=== PATIENT | male | born 1940 | race Caucasian/White ===

== ENCOUNTER 2023-10-29 09:14 | Outpatient (REF) | payer MEDICARE, SELFPAY | END 2023-10-29 09:15 | disposition home or self-care (01) | LOC: HO.HOSX 09:14 | PROVIDERS: Visit Provider Orthopaedic Surgery | DX: Z13.89 Encounter for screening for other disorder (principal) ==

== ENCOUNTER 2023-11-04 09:55 | Outpatient (AMB) | payer MEDICARE, SELFPAY ==
--- NOTE | 2023-11-04 10:17 | MHC.OFFVIS ---
Vital Signs 11/04/23 10:20 Height 5 ft 5 in Weight 170 lb BMI 28.3 Intake Visit Reasons: N/P RT knee pain Intake Note: Cy is an 83 year old male who present today as a new patient with complaints of right knee pain. He describes his pain as sharp in nature. He has had cortisone injections in the past which gave him minimal relief. Has also had a series of 3 viscosupplementation injections which gave him fairly good relief. Did have a single viscosupplementation injection which gave him no relief. He has tried Tylenol and anti-inflammatory medicines which gave him minimal relief. He wishes to hold off on right total knee replacement surgery for as long as possible. He has done physical therapy exercises which aggravated his pain. Allergies lactose [LACTOSE] Allergy (Unknown, Unverified 11/04/23 10:18) UNKNOWN morphine [MORPHINE] Allergy (Unknown, Unverified 11/04/23 10:18) INVOLUNTARY SPASMS From DILAUDID Allergy (Unknown, Uncoded 11/04/23 10:18) PAIN Medication List - Last Reconciled 11/04/23 by Gordo Deng MD atorvastatin 40 mg PO DAILY carvedilol 6.25 mg PO BID finasteride 5 mg PO DAILY levothyroxine 75 mcg PO DAILY omeprazole 20 mg PO BID prednisone 1 mg PO DAILY sacubitril-valsartan 49-51 mg (Entresto) 1 tab PO BID tamsulosin 0.4 mg PO DAILY Physical Exam Vital Signs: BMI result Body Mass Index 28.3 Const Other: Well-nourished well-developed very friendly male awake alert and oriented x3 in no acute distress Extrem Other: Bilateral lower extremity examination shows good capillary refill, no skin lesions noted, normal sensation light touch Right knee examination shows a mild effusion, palpable crepitus with range of motion, pain with range of motion, range of motion from -3 degrees to 115 degrees, no instability Results Reviewed Results Reviewed: X-rays of the patient's right knee taken today show joint space narrowing, subchondral sclerosis, no acute bony abnormalities Assessment & Plan Assessment & Plan (1) Arthritis of right knee: Code(s): M17.11 - Unilateral primary osteoarthritis, right knee Category: Medical Plan Mr. Velez presents with progressively worsening right knee pain due to degenerative joint disease. I had a lengthy discussion with the patient regarding the treatment options. He wishes to hold off on right total knee replacement surgery for as long as possible. I agree with this plan. Has not gotten good relief from single viscosupplementation injections or cortisone injections. Thus, I will see whether or not the patient's insurance company will cover a series of 3 viscosupplementation injections for his right knee. I will see him back once the injections are available. Feel free to call me at any time should questions regarding his orthopedic management arise. I spent 21 minutes in reviewing the patient's records and imaging studies, seeing the patient and documenting in the medical record. Orders: Orders XR knee RT 3V Today M25.561 - Pain in right knee Coding Level of Care Code Est Pt Level 3 (67093) Diagnoses Arthritis of right knee M17.11
[2023-11-04 10:20] VITALS: BMI 28.3
== END 2023-11-04 10:35 | disposition home or self-care (01) ==
PROVIDERS: Visit Provider Orthopaedic Surgery
DX: M17.11 Unilateral primary osteoarthritis, right knee (principal)
CPT/HCPCS: 99203

== ENCOUNTER 2023-11-04 10:51 | Outpatient (REF) | payer MEDICARE, SELFPAY ==
--- NOTE | ~2023-11-04 | XR_ITS ---
EXAMINATION: XR KNEE, RIGHT CLINICAL INFORMATION: Pain in right knee COMPARISON: None available. TECHNIQUE: Three views of the right knee. FINDINGS: The bones are diffusely demineralized. Trace joint effusion. Moderate to marked narrowing of the medial compartment with subchondral sclerosis. Small medial marginal posterior patellar osteophytes. Narrowing of the patellofemoral space. Electronic device partially imaged in the lateral aspect of the mid to distal thigh. XR/XR knee RT 3V IMPRESSION: Moderate degenerative changes.
== END 2023-11-04 10:52 | disposition home or self-care (01) ==
LOC: HO.HOSX 10:51
PROVIDERS: Visit Provider Orthopaedic Surgery
DX: M17.11 Unilateral primary osteoarthritis, right knee (principal)
CPT/HCPCS: 73562; 99202

== ENCOUNTER 2023-11-25 07:49 | Outpatient (AMB) | payer MEDICARE, SELFPAY ==
--- NOTE | 2023-11-25 07:54 | MHC.OFFVIS ---
Intake Visit Reasons: Right Knee Euflexxa #1 Intake Note: Cy is an 83 year old male who presents with complaints of right knee pain. He describes his pain as sharp in nature. He has had cortisone injections in the past which gave him minimal relief. Has also had a series of 3 viscosupplementation injections which gave him fairly good relief. He did have a single viscosupplementation injection which gave him no relief. He has tried Tylenol and anti-inflammatory medicines which gave him minimal relief. He wishes to hold off on right total knee replacement surgery for as long as possible. He has done physical therapy exercises which aggravated his pain. Allergies lactose [LACTOSE] Allergy (Unknown, Unverified 11/25/23 07:55) UNKNOWN morphine [MORPHINE] Allergy (Unknown, Unverified 11/25/23 07:55) INVOLUNTARY SPASMS From DILAUDID Allergy (Unknown, Uncoded 11/25/23 07:55) PAIN Medication List - Last Reconciled 11/25/23 by Gordo Deng MD atorvastatin 40 mg PO DAILY carvedilol 6.25 mg PO BID finasteride 5 mg PO DAILY levothyroxine 75 mcg PO DAILY omeprazole 20 mg PO BID prednisone 1 mg PO DAILY sacubitril-valsartan 49-51 mg (Entresto) 1 tab PO BID tamsulosin 0.4 mg PO DAILY Physical Exam Const Other: Well-nourished well-developed very friendly male awake alert and oriented x3 in no acute distress Extrem Other: Bilateral lower extremity examination shows good capillary refill, no skin lesions noted, normal sensation light touch Right knee examination shows a minimal effusion, palpable crepitus with range of motion, pain with range of motion, no instability Office Procedures Joint Injection/Drain Joint Injection/Drain Primary Site: right knee Prep: site was prepped using aseptic technique Injected: 20 mg of (Euflexxa viscosupplementation) and 1% plain lidocaine Procedure: The patient tolerated the procedure well Coding 39339 - Large joint Procedure code (CPT) selection complete Results Reviewed Results Reviewed: X-rays of the patient's right knee show joint space narrowing, subchondral sclerosis, no acute bony abnormalities Assessment & Plan Assessment & Plan (1) Arthritis of right knee: Code(s): M17.11 - Unilateral primary osteoarthritis, right knee Category: Medical Plan Mr. Velez presents with right knee pain due to degenerative joint disease. I had a lengthy discussion with the patient regarding the treatment options. He wishes to hold off on total knee replacement surgery for as long as possible. I agree with this plan. Has not gotten good relief from cortisone injections in the past. Thus, the risks and benefits of a series of 3 Euflexxa viscosupplementation injections were discussed at length with the patient. The patient wished to proceed. He tolerated the 1st injection well. He will continue with his activity modifications. He will follow up next week as scheduled. I spent 20 minutes in reviewing the patient's records and imaging studies, seeing the patient and documenting in the medical record. Orders: Orders AMB Joint Injection/Aspiration Today M17.11 - Unilateral primary osteoarthritis, right knee Coding Level of Care Code Est Pt Level 3 (06728) Diagnoses Arthritis of right knee M17.11 CPT Codes Coding - 02259 Large joint: 37282 - Large joint ([id number])
== END 2023-11-25 08:15 | disposition home or self-care (01) ==
PROVIDERS: Visit Provider Orthopaedic Surgery
DX: M17.11 Unilateral primary osteoarthritis, right knee (principal)
CPT/HCPCS: 20610; 99213

== ENCOUNTER → 2023-11-25 07:49 | Outpatient (BNVA) | payer MEDICARE, SELFPAY | PROVIDERS: Visit Provider Orthopaedic Surgery | DX: M17.11 Unilateral primary osteoarthritis, right knee (principal) | CPT/HCPCS: 20610; 99212; J7323 ==

== ENCOUNTER 2023-12-02 07:50 | Outpatient (AMB) | payer MEDICARE, SELFPAY ==
--- NOTE | 2023-12-02 09:28 | MHC.OFFVIS ---
Intake Visit Reasons: Right Knee Euflexxa #2 Intake Note: Mr. Velez presents for follow-up of his right knee pain. He states he got mild relief from the 1st Euflexxa injection that he was given last week. He continues with his home exercise program. Allergies lactose [LACTOSE] Allergy (Unknown, Unverified 11/25/23 07:55) UNKNOWN morphine [MORPHINE] Allergy (Unknown, Unverified 11/25/23 07:55) INVOLUNTARY SPASMS From DILAUDID Allergy (Unknown, Uncoded 11/25/23 07:55) PAIN Medication List - Last Reconciled 12/02/23 by Gordo Deng MD atorvastatin 40 mg PO DAILY carvedilol 6.25 mg PO BID finasteride 5 mg PO DAILY levothyroxine 75 mcg PO DAILY omeprazole 20 mg PO BID prednisone 1 mg PO DAILY sacubitril-valsartan 49-51 mg (Entresto) 1 tab PO BID tamsulosin 0.4 mg PO DAILY Physical Exam Extrem Other: Right knee examination shows a minimal effusion, palpable crepitus with range of motion, pain with range of motion, no instability Office Procedures Joint Injection/Drain Joint Injection/Drain Primary Site: right knee Prep: site was prepped using aseptic technique Injected: 20 mg of (Euflexxa viscosupplementation) and 1% plain lidocaine Procedure: The patient tolerated the procedure well Coding - Large joint Procedure code (CPT) selection complete Assessment & Plan Assessment & Plan (1) Arthritis of right knee: Code(s): M17.11 - Unilateral primary osteoarthritis, right knee Category: Medical Plan Mr. Velez presents with right knee pain due to degenerative disease. The risks and benefits of a 2nd Euflexxa viscosupplementation injection were discussed at length with the patient. The patient wished to proceed. Tolerated the injection well. He will continue with his home exercise program. He will follow up next week as scheduled for his 3rd injection. He will contact me prior to that time should any questions or concerns arise. Orders: Orders AMB Joint Injection/Aspiration Today M17.11 - Unilateral primary osteoarthritis, right knee Coding Level of Care Code Procedure Only Diagnoses Arthritis of right knee M17.11 CPT Codes Coding - Large joint: 81882 - Large joint ([id number])
== END 2023-12-02 08:18 | disposition home or self-care (01) ==
PROVIDERS: Visit Provider Orthopaedic Surgery
DX: M17.11 Unilateral primary osteoarthritis, right knee (principal)
CPT/HCPCS: 20610

== ENCOUNTER → 2023-12-02 07:50 | Outpatient (BNVA) | payer MEDICARE, SELFPAY | PROVIDERS: Visit Provider Orthopaedic Surgery | DX: M17.11 Unilateral primary osteoarthritis, right knee (principal) | CPT/HCPCS: 20610; J7323 ==

== ENCOUNTER 2023-12-09 07:49 | Outpatient (AMB) | payer MEDICARE, SELFPAY ==
--- NOTE | 2023-12-09 07:58 | MHC.OFFVIS ---
Intake Visit Reasons: Right Knee Euflexxa #3 Intake Note: Cy is an 83 year old male who presents today for his Right Knee Euflexxa Injection #3. The patient reports mild improvement after his last 2 shots. He denies any fevers or chills. He continues with his home exercise program. Allergies lactose [LACTOSE] Allergy (Unknown, Unverified 12/09/23 08:02) UNKNOWN morphine [MORPHINE] Allergy (Unknown, Unverified 12/09/23 08:02) INVOLUNTARY SPASMS From DILAUDID Allergy (Unknown, Uncoded 12/09/23 08:02) PAIN Medication List - Last Reconciled 12/10/23 by Gordo Deng MD atorvastatin 40 mg PO DAILY carvedilol 6.25 mg PO BID finasteride 5 mg PO DAILY levothyroxine 75 mcg PO DAILY omeprazole 20 mg PO BID prednisone 1 mg PO DAILY sacubitril-valsartan 49-51 mg (Entresto) 1 tab PO BID tamsulosin 0.4 mg PO DAILY Physical Exam Extrem Other: Right knee examination shows a minimal effusion, palpable crepitus with range of motion, no instability Office Procedures Joint Injection/Drain Joint Injection/Drain Primary Site: right knee Prep: site was prepped using aseptic technique Injected: 20 mg of (Euflexxa viscosupplementation) and 1% plain lidocaine Procedure: The patient tolerated the procedure well Coding 08481 - Large joint Procedure code (CPT) selection complete Assessment & Plan Assessment & Plan (1) Arthritis of right knee: Code(s): M17.11 - Unilateral primary osteoarthritis, right knee Category: Medical Plan Mr. Velez presents with right knee pain due to degenerative joint disease. The risks and benefits of a 3rd Euflexxa injection were discussed at length with the patient. The patient wished to proceed. He tolerated the injection well. He will continue with his home exercise program. He will follow up with me on an as-needed basis should his symptoms not plateau at an unacceptable level over the next few months. Feel free to call me at any time should questions regarding his orthopedic management arise. Orders: Orders AMB Joint Injection/Aspiration 12/09/23 M17.11 - Unilateral primary osteoarthritis, right knee Coding Level of Care Code Procedure Only Diagnoses Arthritis of right knee M17.11 CPT Codes Coding - 65973 Large joint: 94772 - Large joint ([id number])
== END 2023-12-09 08:16 | disposition home or self-care (01) ==
PROVIDERS: Visit Provider Orthopaedic Surgery
DX: M17.11 Unilateral primary osteoarthritis, right knee (principal)
CPT/HCPCS: 20610

== ENCOUNTER → 2023-12-09 07:49 | Outpatient (BNVA) | payer MEDICARE, SELFPAY | PROVIDERS: Visit Provider Orthopaedic Surgery | DX: M17.11 Unilateral primary osteoarthritis, right knee (principal) | CPT/HCPCS: 20610; J7323 ==

== ENCOUNTER 2024-03-09 10:50 | Outpatient (AMB) | payer MEDICARE, SELFPAY ==
--- NOTE | 2024-03-09 10:52 | A.OFFVIS_ITS ---
Vital Signs 03/09/24 10:58 Height 5 ft 5 in Weight 170 lb BMI 28.3 Intake Visit Reasons: Right knee pain Intake Note: Cy is a 83 year old male who presents with complaints of progressively worsening right knee pain. He describes his pain as sharp and severe in nature, 02/25. His pain has gotten worse over the last few years in spite of continued non operative treatments. He has tried Tylenol and anti-inflammatory medicines which gave him minimal relief. He has also done physical therapy exercises which aggravated his pain. He has had both cortisone injections and viscosupplementation injections. The most recent set of injections gave him minimal relief. The patient has difficulty walking even short distances because of his pain. At this point his right knee pain is interfering with his activities of daily living and his ability to sleep well through the night. Allergies lactose [LACTOSE] Allergy (Unknown, Verified 03/09/24 10:54) UNKNOWN morphine [MORPHINE] Allergy (Unknown, Verified 03/09/24 10:54) INVOLUNTARY SPASMS From DILAUDID Allergy (Unknown, Uncoded 12/09/23 08:02) PAIN Medication List - Last Reconciled 03/09/24 by Gordo Deng MD atorvastatin 40 mg PO DAILY carvedilol 6.25 mg PO BID finasteride 5 mg PO DAILY levothyroxine 75 mcg PO DAILY omeprazole 20 mg PO BID prednisone 1 mg PO DAILY sacubitril-valsartan 49-51 mg (Entresto) 1 tab PO BID tamsulosin 0.4 mg PO DAILY Physical Exam Vital Signs: BMI result Body Mass Index 28.3 Const Other: Well-nourished well-developed very friendly male awake alert and oriented x3 in no acute distress Extrem Other: Bilateral lower extremity examination shows good capillary refill, no skin lesions noted, normal sensation light touch Right knee examination shows a minimal effusion, palpable crepitus with range of motion, pain with range of motion, range of motion from -3 degrees to 115 degrees, no instability Results Reviewed Results Reviewed: X-rays of the patient's right knee taken previously show end-stage degenerative joint disease with grade 4 [id number] arthritis, subchondral sclerosis, osteophyte formation, no acute bony abnormalities Assessment & Plan Assessment & Plan (1) Right knee pain: Code(s): M25.561 - Pain in right knee Category: Medical Plan Mr. Velez presents with progressively worsening right knee pain due to end- stage degenerative joint disease. I had a lengthy discussion with the patient regarding the treatment options. At this point he has failed continued non operative treatments. The risks and benefits of right total knee replacement surgery were discussed at length with the patient. The patient wishes to proceed with surgery either later this year or early next year. The patient will contact my office to pick a surgery date. He will follow-up as instructed. Feel free to call me at any time should questions regarding his orthopedic management arise. I spent 20 minutes in reviewing the patient's records and imaging studies, seeing the patient and documenting in the medical record. Coding Level of Care Code Est Pt Level 3 (29936) Complex EM visit Add On G2211 Diagnoses Right knee pain M25.561
[2024-03-09 10:58] VITALS: BMI 28.3
== END 2024-03-09 11:19 | disposition home or self-care (01) ==
PROVIDERS: Visit Provider Orthopaedic Surgery
DX: M25.561 Pain in right knee (principal)
CPT/HCPCS: 99213; G2211

== ENCOUNTER → 2024-03-09 10:50 | Outpatient (BNVA) | payer MEDICARE, SELFPAY | PROVIDERS: Visit Provider Orthopaedic Surgery | DX: M25.561 Pain in right knee (principal) | CPT/HCPCS: 99212 ==

== ENCOUNTER → 2024-05-20 11:02 | Outpatient (BNVA) | payer MEDICARE, SELFPAY | DX: Z01.818 Encounter for other preprocedural examination (principal) ==

== ENCOUNTER → 2024-06-24 08:51 | Outpatient (AMB) | payer MEDICARE, SELFPAY ==
--- NOTE | 2024-06-24 09:04 | A.OFFVIS_ITS ---
Vital Signs 06/24/24 09:13 Height 5 ft 5 in Weight 170 lb BMI 28.3 Intake Visit Reasons: Right knee pain Intake Note: Cy is a 84 year old male who presents with complaints of progressively worsening right knee pain. He describes his pain as sharp and severe in nature, /10. His pain has gotten worse over the last few years in spite of continued non operative treatments. He has tried Tylenol and anti-inflammatory medicines which gave him minimal relief. He has also done physical therapy exercises which aggravated his pain. He has had both cortisone injections and viscosupplementation injections. The most recent set of injections gave him minimal relief. The patient has difficulty walking even short distances because of his pain. At this point his right knee pain is interfering with his activities of daily living and his ability to sleep well through the night. Allergies lactose [LACTOSE] Allergy (Unknown, Verified 06/24/24 09:13) UNKNOWN morphine [MORPHINE] Allergy (Unknown, Verified 06/24/24 09:13) INVOLUNTARY SPASMS atenolol Allergy (Verified 06/24/24 09:13) Unknown Medication List - Last Reconciled 06/24/24 by Gordo Deng MD allopurinol 150 mg PO DAILY aspirin 81 mg PO DAILY atorvastatin 40 mg PO QPM carvedilol 6.25 mg PO BID eplerenone 50 mg PO DAILY finasteride 5 mg PO DAILY hydrochlorothiazide 12.5 mg PO DAILY levothyroxine 88 mcg PO QAM omeprazole 20 mg PO DAILY prednisone 1 mg PO Q OTHER DAY sacubitril-valsartan 49-51 mg (Entresto) 1 tab PO BID tamsulosin 0.4 mg PO BEDTIME walker Folding front wheeled walker [facility] Medical History Arthritis Back pain Anemia Hiatal hernia Murmur Scarlet fever Hyperlipidemia Chronic rhinitis Elevated PSA Thyroid disease HTN (hypertension) Gout CKD (chronic kidney disease) stage 3, GFR 30-59 ml/min Sleep apnea Internal hemorrhoids Polymyalgia rheumatica Chronic pruritus Lung cancer Functional diarrhea Osteoarthritis BPH (benign prostatic hyperplasia) Serrated polyp of colon Cystic mass of pancreas IBS (irritable bowel syndrome) Venous insufficiency of both lower extremities PVC (premature ventricular contraction) Cardiomyopathy Chest pain Coronary artery disease involving burns pai[place] coronary artery Second degree heart block Cardiac resynchronization therapy pacemaker (MACHINE PACKAGER-P) in place Surgical History Hx of lumbosacral spine surgery Hx of bilateral cataract extraction Hx of removal of cyst Hx of inguinal hernia repair Hx of cholecystectomy H/O colonoscopy History of esophagogastroduodenoscopy (EGD) History of lobectomy of lung History of permanent cardiac pacemaker placement Hx of arthroscopy of left knee Hx of cardiac catheterization Social History Are you a primary child care centre manager to a significant other at home: No Do you presently have visiting nurse or other home services: No Patient Tobacco Use Status: Former Tobacco user Physical Exam Vital Signs: BMI result Body Mass Index 28.3 Const Other: Well-nourished well-developed very friendly male awake alert and oriented x3 in no acute distress Extrem Other: Bilateral lower extremity examination shows good capillary refill, no skin lesions noted, normal sensation light touch Right knee examination shows a minimal effusion, palpable crepitus with range of motion, pain with range of motion, range of motion from -3 degrees to 115 degrees, no instability Results Reviewed Results Reviewed: X-rays of the patient's right knee taken previously show end-stage degenerative joint disease with grade 4 [id number] arthritis, subchondral sclerosis, osteophyte formation, no acute bony abnormalities Assessment & Plan Assessment & Plan (1) Arthritis of right knee: Code(s): M17.11 - Unilateral primary osteoarthritis, right knee Category: Medical Plan Mr. Velez presents with progressively worsening right knee pain due to end- stage degenerative joint disease. I had a lengthy discussion with the patient regarding the options. At this point he has failed continued non operative treatments. The risks and benefits of right total knee replacement surgery were discussed at length with the patient. The patient wishes to proceed with surgery. manager student services will be consulted following his surgery for home physical therapy and nursing versus possible inpatient rehabilitation. The patient will follow-up as instructed. Feel free to call me at any time should questions regarding his orthopedic management arise. I spent 22 minutes in reviewing the patient's records and imaging studies, seeing the patient and documenting in the medical record. Orders: Orders Hemoglobin A1c Today Z01.818 - Encounter for other preprocedural examination Basic Metabolic Panel Today Z01.818 - Encounter for other preprocedural examination Complete Blood Count Auto Diff Today Z01.818 - Encounter for other preprocedural examination Coding Level of Care Code Est Pt Level 3 (74131) Complex EM visit Add On G2211 Diagnoses Arthritis of right knee M17.11
--- OUTSIDE RECORDS SUMMARY | 2024-06-24 09:07 | XMS_ITS | Clinical Summary ---
Author Organization [facility] Address [address] [address] Phone Care Team Providers Care Survey Research Manager Name Role Phone Aram Modi MD Primary Care Provider [phone] Allergies Active Allergy Reactions Criticality Noted Date Comments Morphine Other (see comments) 07/06/2014 Morphine Sulfate-Nacl 08/06/2005 CONVULSIONS CONVULSIONS Medications allopurinol (ZYLOPRIM) 100 MG tablet Take 2 tablets by mouth 1 (one) time each day 6 Active aspirin (ST SKIP) 81 MG EC tablet Take 81 mg by mouth 6 Active atorvastatin (LIPITOR) 40 MG tablet Take 40 mg by mouth 1 (one) time each day in the evening 3 Active dicyclomine (BENTYL) 10 MG capsule Take 1 capsule by mouth 1 (one) time each day 5 Active eplerenone (INSPRA) 25 MG tablet 3 Active finasteride (PROSCAR) 5 MG tablet Take 5 mg by mouth 1 (one) time each day 3 Active levothyroxine (SYNTHROID, LEVOTHROID) 75 MCG tablet Take 75 mcg by mouth 1 (one) time each day in the morning 3 Active ondansetron ODT (ZOFRAN-ODT) 4 MG dispersible tablet DISSOLVE 1 TABLET BY MOUTH EVERY 6 HOURS,X30 DAYS NEEDED FOR NAUSEA/VOMITI NG 3 Active predniSONE (DELTASONE) 1 MG tablet Take 1 mg by mouth 1 (one) time each day 3 Active Entresto 49-51 MG per tablet 3 Active tamsulosin (FLOMAX) 0.4 MG 24 hr capsule Take by mouth 1 (one) time each day 3 Active carvedilol (COREG) 6.25 MG tablet Take 6.25 mg by mouth in the morning and 6.25 mg in the evening. Take with meals. 3 Active sucralfate (CARAFATE) 1 g tablet TAKE 1 TABLET (1 G TOTAL) BY MOUTH 2 (TWO) TIMES A DAY NEEDED. 3 Active omeprazole (PriLOSEC) [address] capsule Take 20 mg by mouth 1 (one) time each day Do not crush or chew. Active Active Problems Problem Noted Date Diagnosed Date Congestive heart failure 04/09/2023 023 Enterocolitis 04/09/2023 04/09/2023 Hospital patient 04/09/2023 04/09/2023 Benign hypertension 04/08/2023 04/08/2023 Abdominal pain 04/08/2023 04/08/2023 Chronic kidney disease stage 3 04/08/2023 1 06/08/2022 Second degree atrioventricular block 03/26/2023 04/09/2023 Coronary arteriosclerosis 02/18/20232022 Cardiomyopathy 02/17/2023 04/09/2023 Overview (04/09/2023): WITH SYSTOLIC DYSFUCNCTION NON OBSTRUCTIVE CAD History of cardiac catheterization 02/17/2023 04/09/2023 Overview (04/09/2023): Done on 02/03/2023 at [facility] indications:CHF Multiple premature ventricular complexes 021 04/09/2023 Arthralgia of temporomandibular joint, unspecifi ed side 06/26/2018 04/09/2023 Cyst of pancreas 04/14/2018 04/09/2023 Irritable bowel syndrome 04/14/2018 023 Serrated polyp of colon 04/14/2018 04/09/20 Arthritis of left knee 06/25/2017 3 Pain of knee region 12/26/2016 04/09/2023 Functional diarrhea 09/12/2016 04/09/2023 Itching of skin 10/23/2015 04/09/2023 Polymyalgia rheumatica 07/31/2015 3 Overview (04/09/2023): Onset 06/03-tapered off prednisone December 2019 Prednisone restarted March 2020 Complicated internal hemorrhoid 05/22/2015 04/09/2023 Non-small cell lung cancer 10/07/201404/09 Cobalamin deficiency 08/26/2014 04/09/2023 Gastroesophageal reflux disease 07/06/2014 04/09/2023 Overview (04/09/2023): Heartburn Obstructive sleep apnea 03/29/2014 04/09/20 23 Overview (04/09/2023): [facility] Home Polysomnogram: Date 02/13/2017; AHI 12, Unclassified apneas 2; Obstructive apneas 9; Central apneas 1; Mixed apneas 0; hypopneas 72; average oxygen saturation 95% (lowest 81% without saturations <88% for 5% or more of study) AHI improved from 13 to 11. Deferred using CPAP at our last visit together. Gout 08/18/2012 04/09/2023 Prostate specific antigen above reference range 11/29/2008 Overview (04/09/2023): [place]; Bx; neg 06/27 PVU 06/28/2019: steadily increasing PSA, plan for prostate MRI Hypothyroidism 03/28/2008 04/09/2023 Overview (04/09/2023): Hypothyroidism Chronic rhinitis 03/22/2008 04/09/2023 Resolved Problems Problem Noted Date Diagnosed Date Resolved Date Benign prostatic hyperplasia without outflow obstruction 04/08/2023 04/08/2023 Chest pain 04/08/2023 04/08/2023 04/08/2023 Diverticulosis of small intestine 04/08/2023 023 04/08/2023 Fatigue 04/08/2023 04/08/2023 04/08/2023 H/O: cardiovascular disease 04/08/2023 04/08/2023 04/08/2023 History of clinical finding in subject 04/08/202304/08/2023 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 [address] [facility] [address] [place] [phone] Abhishek Haynes MD Stage 3a chronic kidney disease (HCC) (Primary Dx); Hypertension; Heart failure with reduced ejection fraction (HCC) 04/27/2024 Orders Only [facility] [address] [facility] [address] [place] [phone] Abhishek Haynes MD from Last 3 Months Immunizations Name Administration Dates Next Due Influenza Split High Dose Pr eservative Free IM 02/14/2020,02/17/2017 Influenza, MDCK, PF, Quadrivalent 03/30/2018 Influenza, Unspecified 04/15/2022,2020,02/14/2020,03/16,02/17/2019,03/30/2018,02/17/2017 ,02/26/2016,02/27/2015,05/02/2014,03/19,02/07/2011,03/22/2008, 5 Moderna SARS-COV-2 04/23/2021 PPD Test 06/23/2000 Pfizer SARS-COV-2 07/23/2020,07/01/2020,06/25/19 21 Pneumococcal Conjugate 13-Valent 11/02/2014 Pneumococcal Polysaccharide 06/07/2014, 4,01/15/2002 SARS-CoV-2, Unspecified 04/15/2022 Td 11/29/2008 Td, Unspecified 11/29/2008 Tdap 05/17/2016 Zoster 12/24/2013 Family History Medical History Relation Comments Heart attack Father Stroke Mother Heart attack Sister Relation Status Comments Father Mother Sister Social History Tobacco Use Types Packs/Day Years Used Date Smoking Tobacco: Former Cigarettes 0.3 10 Passive Smoke Exposure: Never Smokeless Tobacco: Never Tobacco Cessation:Counseling Given: No Alcohol Use Standard Drinks/Week Comments Never 0 (1 standard drink = 0.6 oz pur e alcohol) Sex and Gender Information Value Date Recorded Sex Assigned at Not on file Legal Sex Male 4:51 PM EST Gender Identity Not on file Sexual Orientation Not on file Last Filed Vital Signs Vital Sign Reading Time Taken Comments Blood Pressure 120/66 05/05/2024 1:42 PM EST Pulse 60 05/05/2024 1:42 PM EST Temperature - - Respiratory Rate - - Oxygen Saturation 99% 05/07/2023 1:09 PM EST Inhaled Oxygen Concentration - - Weight 82.1 kg (181 lb) 05/05/2024 1:42 PM EST Height - - Body Mass Index - - Plan of Treatment Upcoming Encounters Date Type Department Care Team (Late st Contact Info) Description 05/05/2025 1:30 PM EST Office Visit [facility] [address] [address] Abhishek Haynes MD [address] [address] Health Maintenance Due Date Last Done Comments Influenza Vaccine (#1) 2024 2, 03/06/2021, 02/14/2020, Additional history exists Pneumococcal Vaccine: 65+ Years Completed 11/02/2014, 06/07/2014, 09/16/2013, Additional history exists Hepatitis B Vaccine Aged Out No longe r eligible based on patient's age to complete this topic Procedures Procedure Name Priority Date/Time Associated Diagnosis Comments PTH, INTACT Routine 04/27/2024 12:51 PM EST VITAMIN D 25 HYDROXY Routine 04/27/2024 12:51 PM EST URINE ALBUMIN / CREATININE RATIO Routine 04/27/2024 12:51 PM EST RENAL FUNCTION PANEL Routine 04/27/2024 12:51 PM EST from Last 3 Months Results * Urine Albumin / Creatinine Ratio (04/27/2024 12:51 PM EST) Creatinine, Ur 44.9 Not Estab. mg/dL [facility] Urine Microalbumin <3.0 Not Estab. ug/mL [facility] Microalbumin/Crea tinine Ratio <7 0 - 29 mg/g creat [facility] Comment: ? Normal: ?0 - ??29 ? Moderately increased: 30 - 300 ? Severely increased: ? >300 04/27/2024 12:5 1 PM EST 04/27/2024 us Abhishek Haynes MD LAB URINE ORDERABLES Final Resul t Performing Organization Address [facility] Co de Phone Number [facility] [address] [place] [address] * (ABNORMAL) Vitamin D 25 Hydroxy (04/27/2024 12:51 PM EST) Vitamin D, 25-OH, Total 27.0(L) 30.0 - 100.0 ng/mL [facility] Comment: Vitamin D deficiency has been defined by the [place] of Medicine and an Endocrine Society practice guideline as a level of serum 25-OH vitamin D less than 20 ng/mL (1,2). The Endocrine Society went on to further define vitamin D insufficiency as a level between 21 and 29 ng/mL (2). 1. IOM ([place] of Medicine). 2010. Dietary reference ?? intakes for calcium and D. [place]: The ?? [employer]. 2. Soheila MF, Samantha LAWSON, Vanda BURGESS, et al. ?? Evaluation, treatment, and prevention of vitamin D ?? deficiency: an Endocrine Society clinical practice ?? guideline. JCEM. 2010; 96(7):1911-30. 04/27/2024 12:5 1 PM EST 04/27/2024 us Abhishek Haynes MD LAB BLOOD ORDERABLES Final Resul t Performing Organization Address [facility] Co de Phone Number [facility] [address] [place] [address] * (ABNORMAL) PTH, Intact (04/27/2024 12:51 PM EST) PTH 80(H) 15 - 65 pg/mL [facility] 04/27/2024 12:5 1 PM EST 04/27/2024 us Abhishek Haynes MD LAB BLOOD ORDERABLES Final Resul t Performing Organization Address [facility] Co de Phone Number [facility] [address] [place] [address] * (ABNORMAL) Renal Function Panel (04/27/2024 12:51 PM EST) Glucose 102(H) 70 - 99 mg/dL [facility] BUN 36(H) 8 - 27 mg/dL [facility] Creatinine 1.41(H) 0.76 - 1.27 mg/dL [facility] eGFR CKD-EPI CR 2020 49(L) >59 mL/min/1.7 3 [facility] BUN/Creatinine Ratio 26(H) 10 - 24 [facility] Sodium 140 134 - 144 mmol/L [facility] Potassium 4.5 3.5 - 5.2 mmol/L [facility] Chloride 103 96 - 106 mmol/L [facility] Bicarbonate (CO2) 21 20 - 29 mmol/L [facility] Calcium 9.1 8.6 - 10.2 mg/dL [facility] Phosphorus 3.2 2.8 - 4.1 mg/dL [facility] Albumin 4.3 3.7 - 4.7 g/dL [facility] 04/27/2024 12:5 1 PM EST 04/27/2024 us Abhishek Haynes MD LAB BLOOD ORDERABLES Final Resul t [facility] [address] [place] [address] from Last 3 Months Insurance MEDICARE [facility] MEDIC[facility] Care Teams Survey Research Manager Relationship Specialty Start Date End Date Aram Modi MD [id number] [place] [address] PCP - General Internal Medicine 04/09/23
--- OUTSIDE RECORDS SUMMARY | 2024-06-24 09:07 | XMS_ITS | Encounter Summary ---
Author Organization [facility] Address [address] [place] [address] Care Team Providers Care Roller Maker Name Role Phone Aram Modi MD Primary Care Provider [phone] Reason for Visit * Reason Onset Date Comments medication 05/06/2024 Encounter Details Date Type Department Care Team (Late st Contact Info) Description 05/06/2024 Telephone [facility] [address] [place] [address] Ravinder Jose MD [address] [place] [address],[address] [phone] medication Social History Tobacco Use Types Packs/Day Years Used Date Smoking Tobacco: Former Smokeless Tobacco: Former Alcohol Use Standard Drinks/Week Comments Yes 0 (1 standard drink = 0.6 oz pur e alcohol) Sex and Gender Information Value Date Recorded Sex Assigned at Not on file Gender Identity Not on file Sexual Orientation Not on file Job Start Date Occupation Industry Not on file Not on file Not on file documented as of this encounter Ordered Prescriptions Prescription Sig Dispensed Refills Start Date End Da te hydroCHLOROthiazide (HYDRODIURIL) 25 mg tablet Take 1 tablet (25 mg total) by mouth 1 (one) time each day. 90 tablet 1 05/06/2024 documented in this encounter Progress Notes * Shanna Marin RN - 05/06/2024 2:56 PM EST Discussed with DIPIKA. Hydrochlorothiazide 25 mg tab QD sent to [facility]. Pt informed. I left a detailed message on [facility]'s personal machine informing her as well. * Shanna Marin RN - 05/06/2024 2:41 PM EST I called [facility]. Pt saw PCP on 05/03/24. Informed PCP he has been taking HCTZ 25 mg daily and stopped Lasix d/t frequent urination. His BP at the visit was 96/61. I reviewed pt non urgent message from 02/18/[address] Jose of this change and he replied, I think that the changes in your diuretic coupled with appropriate conservative measures are excellent. It seems that you are doing well. I called pt. BP at home has been 120/70. He denies dizziness and lightheadedness. BLE edema is minimal and stated it is the same as when he was taking Furosemide. Pt reports feeling well for his age. He takes Eplerenone as well. Recent renal panel from 04/27/24 available May I refill HCTZ 25 mg tab daily to [facility] for pt? * Damaris Hicks - 05/06/2024 2:05 PM EST [facility] from Dr. Modi's office called, the patient had an appointment with them today. He took it upon himself to stop taking furosemide due to urinating too much and restarted his Hydrochlorothiazide 25 mg. She would like a call back to discuss this and see which medication he should be on. Heis leaving to [place] next month and needs refills. Please call her back at [phone] documented in this encounter Plan of Treatment Upcoming Encounters Date Type Department Care Team (Late st Contact Info) Description 10/28/2024 9:10 AM EDT Office Visit [facility] [address] [facility] [address] [place] [address] Fabien Cleaning NP [address] [place] [address] Dr [address] [place] [address] 04/20/2025 8:00 AM EST Ancillary Procedure [facility] [address] [facility] [address] [place] [address] documented as of this encounter Visit Diagnoses Not on filedocumented in this encounter Discontinued Medications Medication Sig Discontinue Reason Start Date End Da te furosemide (LASIX) 40 mg tablet Take 1 tablet (40 mg total) by mouth 1 (one) time each day. For 360 days Prescriber Discontinued 11/05/2023 05/06/2024 documented as of this encounter Care Teams Roller Maker Relationship Specialty Start Date End Date Aram Modi MD [address] [address] PCP - General 04/22/17 documented as of this encounter
--- OUTSIDE RECORDS SUMMARY | 2024-06-24 09:08 | XMS_ITS | Clinical Summary ---
Author Organization [address] [place] [address] [place] [phone] Phone Care Team Providers Care Satellite Instruction Facilitator Name Role Phone Aram Modi MD Primary Care Provider + [phone] Allergies Active Allergy Reactions Criticality Noted Date Comments Morphine 08/06/2005 CONVULSIONS Medications Medication Sig Dispensed Refills Start Date End Date Status allopurinoL (ZYLOPRIM) 100 mg tablet Take 1.5 tablets (150 mg total) by mouth 1 (one) time each day. 12/02/2016 Active aspirin 81 mg EC tablet Take 1 tablet (81 mg total) by mouth 1 (one) time each day. 04/29/2006 Active atorvastatin (LIPITOR) 40 mg tablet Take 1 tablet (40 mg total) by mouth 1 (one) time each day. 03/06/2023 Active carvediloL (COREG) 6.25 mg tablet Take 1 tablet (6.25 mg total) by mouth 2 (two) times a day with meals. 02/04/2024 Active eplerenone (INSPRA) 50 mg tablet Take 1 tablet (50 mg total) by mouth 1 (one) time each day. 12/18/2016 Active finasteride (PROSCAR) 5 mg tablet Take 1 tablet (5 mg total) by mouth 1 (one) time each day. Active levothyroxine (SYNTHROID, LEVOTHROID) 75 mcg tablet Take 1 tablet (75 mcg total) by mouth 1 (one) time each day. 12/19/2016 Active omeprazole (PriLOSEC) [address] capsule Take 1 capsule (20 mg total) by mouth 1 (one) time each day. 02/13/2016 Active predniSONE (DELTASONE) 1 mg tablet Take by mouth. 3 tab twice a day for 3 days, then 2 tab twice a day for 3 days, then one tab twice a day 05/08/2021 Active tamsulosin (FLOMAX) 0.4 mg 24 hr capsule Take 1 capsule (0.4 mg total) by mouth 1 (one) time each day. Take 30 mins after same meal every day. - 12/02/2016 Active hydroCHLOROthiazide (HYDRODIURIL) 25 mg tablet Take 1 tablet (25 mg total) by mouth 1 (one) time each day. 90 tablet 1 05/06/2024 Active levothyroxine (SYNTHROID, LEVOTHROID) 88 mcg tablet Take by mouth 1 (one) time each day before breakfast. Active sacubitriL-valsartan (Entresto) 49-51 mg per tabletIndications:Othe r cardiomyopathy (CMS/HCC) Take 1 tablet by mouth 2 (two) times a day. 180 tablet 3 05/17/2024 Active Active Problems Problem Noted Date Diagnosed Date Second degree heart block 03/26/2023 Assessment & Plan (05/17/2024 4:03 PM EST): Symptomatic high-grade AV block in the setting of marked left ventricular dysfunction has been treated with biventricular pacemaker implantation. The patient has normal pacer function and no significant alerts. We will continue to follow him in our device clinic. 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 He had improvement in marked left ventricular systolic dysfunction following biventricular pacemaker insertion and guideline directed medical therapy. His ejection fraction increased from 25 to 50%. He does not have any evidence of congestive heart failure. He is tolerating his medications. The patient recently went to the emergency room for evaluation of anterior chest discomfort and pleurisy. D-dimers were negative and troponins were normal. No EKG changes of significance were observed. Symptoms resolved without significant recurrence. CT angiography was not performed given the fairly good negative predictive value of normal D-dimer levels. Symptoms have not recurred. There is mild tenderness of his left medial thigh. I am making arrangements for a duplex scan to rule out DVT just to make sure that there is no substrate for thromboembolic disease. If this test is negative I feel that he would be at low to intermediate risk for cardiac complications of his planned surgery. Orders: ECG 12 lead sacubitriL-valsartan (Entresto) 49-51 mg per tablet; Take 1 tablet by mouth 2 (two) times a day. Chest pain 02/17/2023 Assessment & Plan (05/17/2024 4:03 PM EST): I have reviewed the results of the patient's recent emergency room evaluation. Please note my impressions above. Orders: Vascular US duplex lower extremity venous left; Future PVCs (premature ventricular contractions) 2020 Venous insufficiency of both lower extremities 1 05/22/2019 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 Irritable bowel syndrome 04/14/2018 Serrated polyp of colon 04/14/2018 BPH (benign prostatic hyperplasia) 09/15/2017 Osteoarthritis of both knees 05/21/2017 Overview (03/04/2024): Left knee arthroscopy for meniscal tears, spring 2016 Functional diarrhea 09/12/2016 Chronic pruritus 10/23/2015 Polymyalgia rheumatica 07/31/2015 Overview (03/04/2024): Onset 06/03-tapered off prednisone December 2019 Prednisone restarted March 2020 Assessment & Plan (05/17/2024 4:03 PM EST): Patient has responded favorably to long-term low-dose prednisone. Internal hemorrhoids with complication 6 Vitamin B 12 deficiency 08/26/2014 Obstructive sleep apnea 03/29/2014 Overview (03/04/2024): [facility] Home Polysomnogram: Date 02/13/2017; AHI 12, Unclassified apneas 2; Obstructive apneas 9; Central apneas 1; Mixed apneas 0; hypopneas 72; average oxygen saturation 95% (lowest 81% without saturations <88% for 5% or more of study) AHI improved from 13 to 11. Deferred using CPAP at our last visit together. CKD (chronic kidney disease) stage 3, GFR 30-59 ml/min 10/28/2013 Overview (03/04/2024): GFR 53 on 08/18/12. Assessment & Plan (05/17/2024 4:03 PM EST): Renal insufficiency appears to be stable. No changes will be made to his regimen. Gout 08/18/2012 Hypertension 11/28/2011 Overview (03/04/2024): Hypertensive disorder Assessment & Plan (05/17/2024 4:03 PM EST): Blood pressure has responded favorably to guideline directed medical therapy for marked left ventricular systolic dysfunction. The patient's ejection fraction has essentially normalized which represents a dramatic improvement. I am very pleased to see him doing so well. Orders: ECG 12 lead Elevated PSA 11/29/2008 Overview (03/04/2024): Douglas; Bx; neg 06/27 PVU 06/28/2019: steadily increasing PSA, plan for prostate MRI Hypothyroid 03/28/2008 Chronic rhinitis 03/22/2008 Hyperlipidemia 08/06/2005 Assessment & Plan (05/17/2024 4:03 PM EST): The patient does not have evidence of critical vascular obstructive disease. He appears to be responding favorably to atorvastatin 40 mg a day. I do not have access to his most recent lipid profile. I will defer ongoing management to his primary care team. Orders: ECG 12 lead Encounters Date Type Department Care Team Description 05/25/2024 7:30 PM EST Ancillary Procedure [facility] - [address] [place] [address] 05/20/2024 Telephone [facility] [address] [place] [address] Aram Modi MD Medical Records 05/18/2024 7:30 AM EST Ancillary Procedure [facility] - [address] [place] [phone] Suspected DVT (deep vein thrombosis); Chest pain on breathing 05/17/2024 1:30 PM EST Consult [facility] [address] [place] [address] Brooklynn Church MD Other cardiomyopathy ([facility]/HCC) (Primary Dx); Primary hypertension; Pure hypercholesterolemia; Stage 3 chronic kidney disease, unspecified whether stage 3a or 3b CKD (CMS/HCC); Polymyalgia rheumatica ([facility]); Second degree heart block; Suspected DVT (deep vein thrombosis); Chest pain on breathing 05/13/2024 Telephone [facility] [address] [place] [address] Brooklynn Church MD 05/06/2024 Telephone [facility] [address] [place] [address] Brooklynn Church MD medication 04/28/2024 Telephone [facility] [address] [place] [address] Aram Modi MD Medical Records 04/20/2024 8:30 AM EST Ancillary Procedure [facility] [address] [place] [address] Encounter for adjustment or management of cardiac device 04/20/2024 Telephone [facility] - [address] [place] [address] Ricardo Gardner RN 03/25/2024 Telephone [facility] [address] [place] [phone] Brooklynn Church MD spoke wi.pt to book preop appt. from Last 3 Months Immunizations Name Administration Dates Next Due Influenza Quadravalent, 0.5m l (Fluad) 65yo and older 04/15/2022 Influenza trivalent, 0.5mL ( Fluad) 65yo and older 02/14/2020,02/17/2017 Influenza trivalent, 0.5mL, preservative free (Fluarix; FluLaval; Fluzone) ages 6mo and older (Afluria) 3 years and older 02/27/2015,05/02/2014,04/01/2012,02/07,03/22/2008,03/22/2005 Influenza, Unspecified 03/16/2019,02/26/2016 PPD Test 06/23/2000 [employer] SARS-CoV-2 COVID-19, mRNA, LNP-S, preservative free 07/23/2020,06/25/2020 Pneumococcal conjugate 13 va lent (Prevnar 13, PCV13) 2mo and older 11/02/2014 Pneumococcal polysaccharide 23 valent (Pneumovax 23) 2yo and older 09/16/2013,01/15/2002 Td Tetanus diptheria (Tdvax) 7yo and older 11/29/2008 Tdap Tetanus diptheria acell ular pertussis (Boostrix; Adacel) 7yo and older 05/17/2016 Zoster Live 12/24/2013 Surgical History Surgery Date Site/Laterality Comments OTHER SURGICAL HISTORY 2004 PROCEDURE: MN RMVL LUNG OTHER THAN PNEUMONECTOMY 1 LOBE LOBECT; COMMENT: LLL for Ca OTHER SURGICAL HISTORY 05/22/12 PROCEDURE: NUCLEAR STRESS TEST REPORT; COMMENT: Nerissa Villanueva, Neg OTHER SURGICAL HISTORY 01/30 PROCEDURE: OUTSIDE NUCLEAR STRESS TEST; COMMENT: neg OTHER SURGICAL HISTORY 01/30 PROCEDURE: CTA CHEST; W/WO CONTRAST MAT; COMMENT: neg COLONOSCOPY 06/29/04 PROCEDURE: HISTORICAL COLONOSCOPY; COMMENT: Nataly perry COLONOSCOPY 03/01 [facility] PROCEDURE: HISTORICAL COLONOSCOPY; COMMENT: devika Shipley; otherwise normal to terminal ileum with normal colonic bxys. UPPER GASTROINTESTINAL ENDOSCOPY 03/01 [facility] PROCEDURE: MN UPPER GI ENDOSCOPY PERFORMED; COMMENT: NOrmal, with normal duodenal biopsies UPPER GASTROINTESTINAL ENDOSCOPY 12/26/2010 PROCEDURE: MN UPPER GI ENDOSCOPY PERFORMED; COMMENT: Minimal erosive gastritis; [facility]; bx negative for H. pylori. KNEE SURGERY 2016 PROCEDURE: HISTORICAL KNEE SURGERY Medical History Medical History Date Comments BPH (benign prostatic hyperplasia) 09/15/2017 DX:BPH (benign prostatic hyperplasia) Chronic pruritus 10/23/2015 DX:Chronic prur itus Chronic rhinitis 03/22/2008 DX:Chronic rhin itis CKD (chronic kidney disease) stage 3, GFR 30-59 ml/min (CMS/HCC) 10/28/2013 DX:CKD (chronic kidney dise ase) stage 3, GFR 30-59 ml/min ([facility]); COMMENT: GFR 53 on 08/18/12. 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 DX:Cysti c mass of pancreas Elevated PSA 11/29/2008 DX:Elevated PSA; COMMENT: Douglas; Bx; neg 06/27 Functional diarrhea 09/12/2016 DX:Functiona l diarrhea Gout 08/18/2012 DX:Gout History of lung cancer 12/08/2015 DX:Histor y of lung cancer; COMMENT: NSC, s/p lobectomy,Tate Lerma; 07/21;left lower lobe Hyperlipidemia 08/06/2005 DX:Hyperlipidemi a Hypertension 11/28/2011 DX:Hypertension; COMMENT: Overview: Hypertensive disorder Hypothyroid 03/28/2008 DX:Hypothyroid IBS (irritable bowel syndrome) 04/14/2018 D X:IBS (irritable bowel syndrome) Internal hemorrhoids with complication 05/22/2015 DX:Internal hemorrhoids with complication Irritable bowel syndrome (IBS) 04/14/2018 D X:Irritable bowel syndrome (IBS) Obstructive sleep apnea 03/29/2014 DX:Obstr uctive sleep apnea; COMMENT: [facility] Home Polysomnogram: Date 02/13/2017; AHI 12, Unclassified apneas 2; Obstructive apneas 9; Central apneas 1; Mixed apneas 0; hypopneas 72; average oxygen saturation 95% (lowest 81% without saturations <88% for 5% or more of study) AHI improved from 13 to 11. Deferred using CPAP at our last visit together. Osteoarthritis of left knee 05/21/2017 DX:O steoarthritis of left knee; COMMENT: Arthroscopy for meniscal tears, spring 2016 Polymyalgia rheumatica (CMS/HCC) 07/31/2015 DX:Polymyalgia rheumatica (HCC); COMMENT: Onset 06/03 Serrated polyp of colon 04/14/2018 DX:Erin tanya polyp of colon Vitamin B 12 deficiency 08/26/2014 DX:Vitam in B 12 deficiency Osteoarthritis of both knees 05/21/2017 DX: Osteoarthritis of both knees; COMMENT: Left knee arthroscopy for meniscal tears, spring 2016 Family History Medical History Relation Name Comments Other: HEART ATTACK Father Other: HEART DISEASE Father Arthritis Mother Arthritis Sister Other: HEART DISEASE Sister Autoimmune disease Neg Hx Breast cancer Neg Hx Colon cancer Neg Hx Coronary artery disease Neg Hx Diabetes Neg Hx Heart attack Neg Hx Heart failure Neg Hx Hyperlipidemia Neg Hx Hypertension Neg Hx Mental illness Neg Hx Prostate cancer Neg Hx Sleep apnea Neg Hx Thyroid disease Neg Hx Relation Name Status Comments Father Mother Sister Social History Tobacco Use Types Packs/Day Years Used Date Smoking Tobacco: Former Smokeless Tobacco: Former Alcohol Use Standard Drinks/Week Comments Yes 0 (1 standard drink = 0.6 oz pur e alcohol) a few glasses of wine per week Sex and Gender Information Value Date Recorded Sex Assigned at Not on file Gender Identity Not on file Sexual Orientation Not on file Job Start Date Occupation Industry Not on file Not on file Not on file Obstetrics History Last Filed Vital Signs Vital Sign Reading Time Taken Comments Blood Pressure 118/68 05/17/2024 1:10 PM EST Pulse 60 05/17/2024 1:10 PM EST Temperature - - Respiratory Rate - - Oxygen Saturation 99% 05/17/2024 1:10 PM EST Inhaled Oxygen Concentration - - Weight 80.7 kg (178 lb) 05/17/2024 1:10 PM EST Height 165.1 cm (5' 5 ) 05/17/2024 1:10 PM EST Body Mass Index 29.62 05/17/2024 1:10 PM EST Plan of Treatment Upcoming Encounters Date Type Department Care Team (Late st Contact Info) Description 10/28/2024 9:10 AM EDT Office Visit [facility] [address] [place] [phone] Fabien Burgos NP [address] [place] [address] 04/20/2025 8:00 AM EST Ancillary Procedure [facility] [address] [facility] [address] [place] [address] Health Maintenance Due Date Last Done Comments Zoster Vaccines (1 of 2) 02/18/2014 12/24/2013 Depression Screening 04/25/2022 Falls Risk Assessment 04/25/2022 Social Influencers of Health Screening 04/25/2022 Medicare Annual Wellness Visit 10/23/2023 10/22/2022 COVID-19 Vaccine ( season) 2024 04/15/2022, 04/23/2021, 07/23/2020, Additional history exists Cholesterol Screening (Lipid Panel) 09/27/2024 09/28/2019 Hypertension/CHF/CAD Annual BMP Blood Test 12/07/2024 12/08/2023, 12/02/2022, 12/02/2022, Additional history exists DTaP,Tdap,and Td Vaccines (3 - Td or Tdap) 05/17/2026 05/17/2016, 11/29/2008 Pneumococcal Vaccine: 65+ Years Completed 11/02/2014, 06/07/2014, 09/16/2013, Additional history exists Influenza Vaccine Completed 02/19/2024, , 04/15/2022, Additional history exists RSV Immunization Patients 60+ Years Old Completed 02/19/2024 HIB Vaccines Aged Out No longer eligi ble based on patient's age to complete this topic HPV Vaccines Aged Out No longer eligi ble based on patient's age to complete this topic Hepatitis A Vaccines Aged Out No long er eligible based on patient's age to complete this topic Hepatitis B Vaccines Aged Out No long er eligible based on patient's age to complete this topic IPV Vaccines Aged Out No longer eligi ble based on patient's age to complete this topic MMR Vaccines Aged Out No longer eligi ble based on patient's age to complete this topic Meningococcal ACWY Vaccine Aged Out N o longer eligible based on patient's age to complete this topic RSV Immunization Patients Under 20 months Aged Out No longer eligible based on patient's age to complete this topic Varicella Vaccines Aged Out No longer eligible based on patient's age to complete this topic Medical Devices Implanted Type Area Taper Operator Device Identifier Shelf Expiration Date Model / Serial / Lot Bsci-Crm [id number] Implanted:02/16 (Quantity not on file) Cardiac MANAGER MARKETING-P [employer]HY[employer] MGMT [id number] / [id number] / Procedures Procedure Name Priority Date/Time Associated Diagnosis Comments CARDIAC DEVICE CHECK- REMOTE- MURJ Routine 05/25/2024 7:29 PM EST VAS US DUPLEX LOWER EXT VENOUS LEFT Routine 05/18/2024 7:36 AM EST Suspected DVT (deep vein thrombosis) Chest pain on breathing ECG 12-LEAD Routine 05/17/2024 1:22 PM EST Other cardiomyopathy (CMS/HCC) Primary hypertension Pure hypercholesterolemia Second degree heart block CARDIAC DEVICE CHECK- IN CLINIC- MURJ Routine 04/20/2024 8:31 AM EST Encounter for adjustment or management of cardiac device ANNUAL BMP BLOOD TEST Routine 12/02/2022 LIPID PANEL Routine 09/28/2019 from Last 3 Months or Most Recently Relevant to Health Maintenance Results * Cardiac device check - Remote- MURJ (05/25/2024 7:29 PM EST) Date Time Interrogation Session [id number] CV DEVICE CHECK Type Interrogation Session Remote Scheduled CV DEVICE CHECK Implantable Pulse Generator Taper Operator BSX CV DEVICE CHECK Implantable Pulse Generator Type MANAGER MARKETING-P CV DEVICE CHECK Implantable Pulse Generator Model U128 CV DEVICE CHECK Implantable Pulse Generator Serial Number [id number] CV DEVICE CHECK Implantable Pulse Generator Implant Date 20230305 CV DEVICE CHECK Battery Remaining Percentage 100.00 CV DEVICE CHECK Battery Remaining Longevity 114.0 CV DEVICE CHECK Battery Status Beginning of Service CV DEVICE CHECK Ayan Statistic RA Percent Paced 41.00 CV DEVICE CHECK Ayan Statistic RV Percent Paced 100.00 CV DEVICE CHECK MANAGER MARKETING Statistic LV Percent Paced 100.00 CV DEVICE CHECK Atrial Tachy Statistic AT/AF [place] Percent 0.00 CV DEVICE CHECK Lead Channel Sensing Intrinsic Amplitude 2.500 CV DEVICE CHECK Lead Channel Setting Sensing Sensitivity 0.75 CV DEVICE CHECK Lead Channel Impedance Value 681 CV DEVICE CHECK Lead Channel Pacing Threshold Amplitude 0.700 CV DEVICE CHECK Lead Channel Pacing Threshold Pulse Width 0.4 CV DEVICE CHECK Lead Channel RA Pacing Threshold Date 2024-05-06 CV DEVICE CHECK Lead Channel Setting Pacing Amplitude 2.000 CV DEVICE CHECK Lead Channel Setting Pacing Pulse Width 0.4 CV DEVICE CHECK Lead Channel Setting Sensing Sensitivity 2.50 CV DEVICE CHECK Lead Channel Impedance Value 582 CV DEVICE CHECK Lead Channel Pacing Threshold Amplitude 1.100 CV DEVICE CHECK Lead Channel Pacing Threshold Pulse Width 0.4 CV DEVICE CHECK Lead Channel RV Pacing Threshold Date 2024-05-06 CV DEVICE CHECK Lead Channel Setting Pacing Amplitude 2.200 CV DEVICE CHECK Lead Channel Setting Pacing Pulse Width 0.4 CV DEVICE CHECK Lead Channel Impedance Value 784 CV DEVICE CHECK Lead Channel Setting Pacing Amplitude 2.500 CV DEVICE CHECK Lead Channel Setting Pacing Pulse Width 1.0 CV DEVICE CHECK Ayan Setting Mode (NBG Code) DDD CV DEVICE CHECK Ventricular chambers paced during MANAGER MARKETING pacing. BiV CV DEVICE CHECK Ayan Setting Lower Rate Limit 60 CV DEVICE CHECK Ayan Setting AT Mode Switch Rate 170 CV DEVICE CHECK Ayan Setting Maximum Tracking Rate 130 CV DEVICE CHECK Ayan Setting Maximum Sensor Rate 130 CV DEVICE CHECK Ayan Setting PAV Delay 150 CV DEVICE CHECK Ayan Setting SUZY Delay 100 CV DEVICE CHECK MANAGER MARKETING LV-RV Delay 0 CV D EVICE CHECK Zone Setting Type Category VT CV DEVICE CHECK Rate 160 CV DEVICE CHECK Zone Setting Status Monitor CV DEVICE CHECK Zone ID 1 CV DEVICE CHECK Date of Service 2024-05-25 CV DEVICE CHECK Anatomical Region Laterality Modality Device Interroga tion 05/07/2024 7:37 AM EST Impressions 05/25/2024 11:54 AM EST Normal Remote: No Events * Normal Device Function * Alerts or events: None * Battery: Battery is at 100%, 9.50 yrs * Sensing, impedance and thresholds reviewed * Programmed parameters reviewed * Presenting rhythm reviewed * Heart Rate Histograms reviewed * No significant changes noted Narrative Procedure Note Darleen Hernadez PA - 05/25/2024 IMPRESSION: Normal Remote: No Events * Normal Device Function * Alerts or events: None * Battery: Battery is at 100%, 9.50 yrs * Sensing, impedance and thresholds reviewed * Programmed parameters reviewed * Presenting rhythm reviewed * Heart Rate Histograms reviewed * No significant changes noted Darleen FISCHER CV IMPLANTABLE CARDI AC DEVICE PROCEDURES * Vascular US duplex lower extremity venous left (05/18/2024 7:36 AM EST) Anatomical Region Laterality Modality Vascular, Abdomen Ultrasound Narrative 05/24/2024 7:26 PM EST ?Study done only in the left lower extremity, as requested. ?There is no evidence of a DVT in the visualized veins of the left lower extremity. Left Lower Venous No evidence of deep vein thrombosis in the common femoral, deep femoral, proximal femoral, mid femoral, distal femoral, popliteal, saphenofemoral junction, small saphenous, posterior tibial, anterior tibial, and peroneal veins of the left leg. The vessels showed compressibility. Interrogation showed phasic and spontaneous Doppler signals. The right common femoral vein was interrogated, demonstrating normal compressibility. Doppler signals were phasic and spontaneous. No evidence of deep vein thrombosis in the popliteal vein of the left leg. The vessel showed compressibility. Interrogation showed phasic and spontaneous Doppler signals. No evidence of deep vein thrombosis in the anterior tibial, posterior tibial, peroneal and gastrocnemius veins of the left leg. The vessels showed compressibility. Beam Saw Operator Details A call scale, color and doppler analysis ultrasound was performed. During the study longitudinal and transverse views were obtained. Pulsed wave doppler was performed. Brooklynn Church MD CV VASCULAR PROCEDUR ES * ECG 12 lead (05/17/2024 1:22 PM EST) Ventricular Rate ECG 60 BPM GEMUSE Atrial Rate 60 BPM GEMUSE P-R Interval 178 ms GEMUSE QRS Duration 140 ms GEMUSE Q-T Interval 466 ms GEMUSE QTc 466 ms GEMUSE P Wave [place] 25 degrees GEMUSE R [place] 0 degrees GEMUSE T [place] 82 degrees GEMUSE ECG Interpretation AV dual-paced rhythm Abnormal ECG When compared with ECG of 27-AUG-2004 14:55, Electronic ventricular pacemaker has replaced Sinus rhythm Confirmed by BROOKLYNN CHURCH ([id number]) on 05/17/2024 2:55:34 PM GEMUSE 05/17/2024 1:22 PM EST 05/17/2024 2:55 PM EST Brooklynn Church MD ECG ORDERABLES GEMUSE * CARDIAC DEVICE CHECK- IN CLINIC- [facility] (04/20/2024 8:31 AM EST) Date Time Interrogation Session [id number] CV DEVICE CHECK Implantable Pulse Generator Taper Operator BSX CV DEVICE CHECK Implantable Pulse Generator Type MANAGER MARKETING-P CV DEVICE CHECK Implantable Pulse Generator Model U128 CV DEVICE CHECK Implantable Pulse Generator Serial Number [id number] CV DEVICE CHECK Implantable Pulse Generator Implant Date 20230305 CV DEVICE CHECK Battery Status Middle of Service CV DEVICE CHECK Lead Channel Sensing Intrinsic Amplitude 2.200 CV DEVICE CHECK Lead Channel Setting Sensing Sensitivity 0.75 CV DEVICE CHECK Lead Channel Impedance Value 719 CV DEVICE CHECK Lead Channel Pacing Threshold Amplitude 0.900 CV DEVICE CHECK Lead Channel Pacing Threshold Pulse Width 0.4 CV DEVICE CHECK Lead Channel RA Pacing Threshold Date 2024-04-20 CV DEVICE CHECK Lead Channel Setting Pacing Amplitude 3.500 CV DEVICE CHECK Lead Channel Setting Pacing Pulse Width 0.4 CV DEVICE CHECK Lead Channel Sensing Intrinsic Amplitude 23.100 CV DEVICE CHECK Lead Channel Setting Sensing Sensitivity 2.50 CV DEVICE CHECK Lead Channel Impedance Value 624 CV DEVICE CHECK Lead Channel Pacing Threshold Amplitude 0.800 CV DEVICE CHECK Lead Channel Pacing Threshold Pulse Width 0.4 CV DEVICE CHECK Lead Channel RV Pacing Threshold Date 2024-04-20 CV DEVICE CHECK Lead Channel Setting Pacing Amplitude 3.500 CV DEVICE CHECK Lead Channel Setting Pacing Pulse Width 0.4 CV DEVICE CHECK Lead Channel Sensing Intrinsic Amplitude 18.600 CV DEVICE CHECK Lead Channel Setting Sensing Sensitivity 2.50 CV DEVICE CHECK Lead Channel Impedance Value 854 CV DEVICE CHECK Lead Channel Pacing Threshold Amplitude 0.900 CV DEVICE CHECK Lead Channel Pacing Threshold Pulse Width 1.0 CV DEVICE CHECK Lead Channel Pacing Threshold Date 2024-04-20 CV DEVICE CHECK Lead Channel Setting Pacing Amplitude 2.500 CV DEVICE CHECK Lead Channel Setting Pacing Pulse Width 1.0 CV DEVICE CHECK Ayan Setting Mode (NBG Code) DDD CV DEVICE CHECK Ventricular chambers paced during MANAGER MARKETING pacing. BiV CV DEVICE CHECK Ayan Setting Lower Rate Limit 60 CV DEVICE CHECK Ayan Setting AT Mode Switch Rate 170 CV DEVICE CHECK Ayan Setting Maximum Tracking Rate 130 CV DEVICE CHECK Ayan Setting Maximum Sensor Rate 130 CV DEVICE CHECK Ayan Setting PAV Delay 180 CV DEVICE CHECK Ayan Setting SUZY Delay 120 CV DEVICE CHECK Zone Setting Type Category VF CV DEVICE CHECK Zone Setting Status On CV DEVICE CHECK Zone ID 1 CV DEVICE CHECK Zone Setting Type Category VT CV DEVICE CHECK Rate 160 CV DEVICE CHECK Zone Setting Status On CV DEVICE CHECK Zone ID 2 CV DEVICE CHECK Zone Setting Type Category VT1 CV DEVICE CHECK Zone Setting Status On CV DEVICE CHECK Zone ID 3 CV DEVICE CHECK Date of Service 2024-04-20 CV DEVICE CHECK Anatomical Region Laterality Modality Device Interroga tion 04/20/2024 Impressions 04/20/2024 1:26 PM EST Normal In-Office: No Events * Normal Device Function * Alerts or events: None * Battery: MOS, 8.5 years * Sensing, impedance and thresholds reviewed and tested * Presenting Rhythm: AP - BP 60 bpm * Underlying Rhythm: - VS 40 - 50's * Heart Rate Histograms reviewed * Pacing and Detection Parameters were evaluated Narrative Procedure Note Angelica Price MD - 04/20/2024 IMPRESSION: Normal In-Office: No Events * Normal Device Function * Alerts or events: None * Battery: MOS, 8.5 years * Sensing, impedance and thresholds reviewed and tested * Presenting Rhythm: AP - BP 60 bpm * Underlying Rhythm: - VS 40 - 50's * Heart Rate Histograms reviewed * Pacing and Detection Parameters were evaluated Order Referral Cardiovascular CV IMPLANT ABLE CARDIAC DEVICE PROCEDURES * Annual BMP Blood Test (12/02/2022) Pathologist [facility] Annual BMP Blood Test abstracted Historical Provider MD SIGRID Bagley * (ABNORMAL) Lipid panel (09/28/2019) LDL/HDL Ratio 4 0 - 4 Triglycerides 290(A) 0 - 150 mg/dL Cholesterol 192 0 - 200 mg/dL HDL 51 40 mg/dL LDL Cholesterol 83 0 - 100 mg/dL Blood Venous blood specimen / Unknown Historical Provider LAB BLOOD ORDERAB LES from Last 3 Months or Most Recently Relevant to Health Maintenance Care Teams Satellite Instruction Facilitator Relationship Specialty Start Date End Date Aram Modi MD [address] [address] PCP - General 04/22/17
--- OUTSIDE RECORDS SUMMARY | 2024-06-24 09:08 | XMS_ITS | Encounter Summary ---
Author Organization [facility] Address [address] [place] [address] Care Team Providers Care Security Screener Name Role Phone Aram Modi MD Primary Care Provider + [phone] Reason for Visit * Reason Onset Date Comments Medical Records 05/20/2024 Encounter Details Date Type Department Care Team (Late st Contact Info) Description 05/20/2024 Telephone [facility] Cardiology [facility] [address] [place] [phone] Aram Modi MD [address] [address] Medical Records Social History Tobacco Use Types Packs/Day Years [...] on file documented as of this encounter Progress Notes * Stephy Fulton - 06/18/2024 4:54 PM EST Faxed last office note, EKG, device check and holter report to [facility] Att: Clarisa at [phone] on 05/20/2024 documented in this encounter Plan of Treatment Upcoming Encounters Date Type Department Care Team (Late st Contact Info) Description 10/28/2024 9:10 AM EDT Office Visit [facility] - [facility] [address] [place] [address] Fabien Burgos NP [address] [place] [address] [address] [place] [address] 04/20/2025 8:00 AM EST Ancillary Procedure [facility] Cardiology [facility] [address] [place] [phone] documented as of this encounter Visit Diagnoses Not on filedocumented in this encounter Care Teams Security Screener Relationship Specialty Start Date End Date Aram Modi MD [address] [address] PCP - General 04/22/17 documented as of this encounter
--- OUTSIDE RECORDS SUMMARY | 2024-06-24 09:08 | XMS_ITS | Encounter Summary ---
Author Organization [facility] Address [address] [place] [address] Care Team Providers Care Electronic Sensing Equipment Assembler Name Role Phone Arma Modi MD Primary Care Provider + [phone] Reason for Visit * Reason Onset Date Comments Medical Records 04/28/2024 Encounter Details Date Type Department Care Team (Late Contact Info) Description 04/28/2024 Telephone [facility] Cardiology [facility] [address] [place] [phone] Aram Modi MD [address] [address] Medical Records Social History Tobacco [...] encounter Progress Notes * Stephy Fulton - 06/14/2024 5:01 PM EST Faxed Holter results to [facility] At [phone] on 04/28/2024 documented in this encounter Plan of Treatment Upcoming Encounters Date Type Department Care Team (Late st Contact Info) Description 10/28/2024 9:10 AM EDT Office Visit [facility] - [facility] [address] [place] [address] Fabien Burgos NP [address] [place] [address] [address] [place] [address] 04/20/2025 8:00 AM EST Ancillary Procedure [facility] Cardiology [facility] [address] [place] [address] documented as of this encounter Visit Diagnoses Not on filedocumented in this encounter Care Teams Electronic Sensing Equipment Assembler Relationship Specialty Start Date End Date Aram Modi MD [address] [address] PCP - General 04/22/17 documented as of this encounter
--- OUTSIDE RECORDS SUMMARY | 2024-06-24 09:08 | XMS_ITS | Encounter Summary ---
Author Organization [facility] Address [address] [place] [address] Care Team Providers Care Inside Phone Sales Name Role Phone Aram Modi MD Primary Care Provider Encounter Details Date Type Department Care Team (Late st Contact Info) Description 05/25/2024 7:30 PM EST Ancillary Procedure [facility] Cardiology [facility] [address] [facility] [address] [place] [phone] Social History Tobacco Use Types Packs/Day Years [...] on file documented as of this encounter Plan of Treatment Upcoming Encounters Date Type Department Care Team (Late st Contact Info) Description 10/28/2024 9:10 AM EDT Office Visit [facility] Cardiology [facility] [address] [facility] [address] [place] [phone] Fabien Burgos NP [address] [place] [address] 04/20/2025 8:00 AM EST Ancillary Procedure [facility] Cardiology [facility] [address] [facility] [address] [place] [phone] documented as of this encounter Procedures Procedure Name Priority Date/Time Associated Diagnosis Comments CARDIAC DEVICE CHECK- REMOTE- MURJ Routine 05/25/2024 7:29 PM EST documented in this encounter Results * Cardiac device check - Remote- MURJ (05/25/2024 7:29 PM EST) Date Time Interrogation Session [id number] CV DEVICE CHECK Type Interrogation Session Remote Scheduled CV DEVICE CHECK Implantable Pulse Generator High Lead Yarder BSX CV DEVICE CHECK Implantable Pulse Generator Type ADULT PROTECTIVE CASEWORKER-P CV DEVICE CHECK Implantable Pulse Generator Model U128 CV DEVICE CHECK Implantable Pulse Generator Serial Number [id number] CV DEVICE CHECK Implantable Pulse Generator Implant Date 20230305 CV DEVICE CHECK Battery Remaining Percentage 100.00 CV DEVICE CHECK Battery Remaining Longevity 114.0 CV DEVICE CHECK Battery Status Beginning of Service CV DEVICE CHECK Ayan Statistic RA Percent Paced 41.00 CV DEVICE CHECK Ayan Statistic RV Percent Paced 100.00 CV DEVICE CHECK ADULT PROTECTIVE CASEWORKER Statistic LV Percent Paced 100.00 CV DEVICE CHECK Atrial Tachy Statistic AT/AF [place] Percent 0.00 CV DEVICE CHECK Lead Channel [...] CV DEVICE CHECK Ventricular chambers paced during ADULT PROTECTIVE CASEWORKER pacing. BiV CV DEVICE CHECK Ayan Setting Lower Rate Limit 60 CV DEVICE CHECK Ayan Setting AT Mode Switch Rate 170 CV DEVICE CHECK Ayan Setting Maximum Tracking Rate 130 CV DEVICE CHECK Ayan Setting Maximum Sensor Rate 130 CV DEVICE CHECK Ayan Setting PAV Delay 150 CV DEVICE CHECK Ayan Setting SUZY Delay 100 CV DEVICE CHECK ADULT PROTECTIVE CASEWORKER LV-RV Delay 0 CV D EVICE CHECK [...] FISCHER CV IMPLANTABLE CARDI AC DEVICE PROCEDURES documented in this encounter Visit Diagnoses Not on filedocumented in this encounter Care Teams Inside Phone Sales Relationship Specialty Start Date End Date Aram Modi MD [address] [place] [address] PCP - General 04/22/17 documented as of this encounter
--- OUTSIDE RECORDS SUMMARY | 2024-06-24 09:08 | XMS_ITS | Clinical Summary ---
Author Organization [facility] Address [address] [place] [address] Care Team Providers Care Professor Of Exercise Science Name Role Phone Gael Coffman MD Primary Care Provider [phone] Allergies Active Allergy Reactions Criticality Noted Date Comments Atenolol Other (See Comments) 01/10/2011 dizziness Ciprofloxacin-Hydrocorti sone Other (See Comments) High 04/01/2012 Dizziness, Nausea Hydromorphone 12/26/2016 Morphine 12/26/2016 Morphine Sulfate-Nacl 08/06/2005 CONVULSIONS Medications Medication Sig Dispensed Refills Start Date End Date Status PROAIR HFA 108 (90 BASE) MCG/ACT inhaler INHALE 2 PUFFS EVERY 4 HOURS NEEDED 0 10/29/2016 Active allopurinol (ZYLOPRIM) 100 MG tablet 0 12/02/2016 Active atorvastatin (LIPITOR) tablet 10 mg 0 12/02/2016 Active eplerenone (INSPRA) tablet 50 mg 0 12/18/2016 Active furosemide (LASIX) 20 MG tablet 0 12/18/2016 Active gabapentin (NEURONTIN) 300 MG capsule Take 300 mg by mouth 2 (two) times a day. 1 10/13/2016 Active hydrochlorothiazide (HYDRODIURIL) tablet 25 mg TAKE 0.5 TABS BY MOUTH DAILY. 1 10/18/2016 Active levofloxacin (LEVAQUIN) 750 MG tablet TAKE 1 TABLET BY MOUTH EVERY DAY FOR 5 DAYS 0 10/29/2016 Active levothyroxine (SYNTHROID, LEVOXYL) tablet 75 mcg 0 12/19/2016 Active lisinopril (PRINIVIL,ZESTRIL) tablet 20 mg 0 11/11/2016 Active predniSONE (DELTASONE) tablet 20 mg TAKE TWO TABS FOR 5 DAYS 0 10/31/2016 Active predniSONE (DELTASONE) tablet 10 mg TAKE 1 TABLET BY MOUTH EVERY DAY FOR 5 DAYS 0 10/29/2016 Active predniSONE (DELTASONE) tablet 2.5 mg 0 12/23/2016 Active tamsulosin (FLOMAX) 0.4 MG CAPS 0 12/02/2016 Active triamcinolone (KENALOG) 0.1 % cream APPLY TO AFFECTED AREAS 3 TIMES A DAY NEEDED 1 12/12/2016 Active omeprazole (PRILOSEC) 20 MG capsule TAKE ONE CAPSULE BY MOUTH TWICE A DAY 0 02/13/2016 Active Ferrous Sulfate (IRON) 325 (65 FE) MG TABS Take 325 mg by mouth. 0 Active aspirin EC 81 MG tablet Take 81 mg by mouth. 0 04/29/2006 Acti ve predniSONE (DELTASONE) tablet 2.5 mg Take 2.5 mg by mouth. 0 05/21/2017 Active allopurinol (ZYLOPRIM) 100 MG tablet Take 200 mg by mouth. 0 04/04/2017 Active atorvastatin (LIPITOR) tablet 10 mg Take 10 mg by mouth. 0 04/04/2017 Acti ve eplerenone (INSPRA) tablet 50 mg Take 50 mg by mouth. 0 Ac tive levothyroxine (SYNTHROID, LEVOXYL) tablet 75 mcg TAKE 1 TABLET DAILY 0 05/05/2017 Ac tive lisinopril (PRINIVIL,ZESTRIL) tablet 20 mg Take 20 mg by mouth. 0 Ac tive tamsulosin (FLOMAX) 0.4 MG CAPS Take 0.4 mg by mouth. 0 04/04/2017 Active hydroCHLOROthiazide (MICROZIDE) 12.5 MG capsule TAKE 1 CAP BY MOUTH EVERY MORNING. 5 07/09/2017 Active chlorthalidone (HYGROTON) 25 MG tablet TAKE 1/2 TABS BY MOUTH DAILY. STOP FUROSEMIDE 2 04/28/2017 Active predniSONE (DELTASONE) tablet 2.5 mg Take 2.5 mg by mouth. 0 06/25/2017 Active lisinopril (PRINIVIL,ZESTRIL) tablet 20 mg Take 20 mg by mouth. 0 Ac tive Active Problems Problem Noted Date Diagnosed Date Arthritis of left knee 06/25/2017 Acute pain of left knee 01/23/2017 Acute pain of left knee 12/26/2016 Family History Medical History Relation Name Comments Heart attack Father Cancer Mother Hypertension Mother Heart attack Sister Relation Name Status Comments Father Mother Sister Social History Tobacco Use Types Packs/Day Years Used Date Smoking Tobacco: Unknown Sex and Gender Information Value Date Recorded Sex Assigned at Not on file Gender Identity Not on file Sexual Orientation Not on file Last Filed Vital Signs Vital Sign Reading Time Taken Comments Blood Pressure - - Pulse - - Temperature - - Respiratory Rate - - Oxygen Saturation - - Inhaled Oxygen Concentration - - Weight 81.2 kg (179 lb) 01/07/2017 11:10 AM EDT Height 167.6 cm (5' 6 ) 01/07/2017 11:10 AM EDT Body Mass Index 28.89 01/07/2017 11:10 AM EDT Plan of Treatment Health Maintenance Due Date Last Done Comments COVID-19 Vaccine (#1) 1940 Depression Screening 1952 Preventative Health Evaluation 1958 Shingrix-Zoster Vaccine (1 of 2) 1990 Fall Risk Assessment 2005 RSV Adult > 60+ Yrs or (1 - 1-dose 75+ series) 2015 Influenza Vaccine (#1) 2024 7, 02/27/2015, 05/02/2014, Additional history exists DTap / Tdap / Td (2 - Td or Tdap) 05/17/2026 05/17/2016 Pneumococcal Vaccine Completed 11/02/2014, 09/16/2013, 01/15/2002 Hepatitis B Vaccines Aged Out No long er eligible based on patient's age to complete this topic RSV Ped < 20 months Aged Out No longe r eligible based on patient's age to complete this topic Care Teams Professor Of Exercise Science Relationship Specialty Start Date End Date Gael Coffman MD PCP - General Endocrinology 12/19/16
== END | disposition home or self-care (01) ==
PROVIDERS: PCP Internal Medicine Sports Medicine; Visit Provider Orthopaedic Surgery
DX: M17.11 Unilateral primary osteoarthritis, right knee (principal)
CPT/HCPCS: 99213; G2211

== ENCOUNTER 2024-06-24 09:40 | Outpatient (REF) | payer MEDICARE, SELFPAY ==
--- OUTSIDE RECORDS SUMMARY | 2024-06-24 09:44 | XMS_ITS | Encounter Summary ---
Author Organization [facility] Address [address] [place] [address] Care Team Providers Care Negative Turner Apprentice Name Role Phone Aram Modi MD Primary Care Provider Yanet Gilmore, Pcp Primary Care Provider [facility] Ravinder Salvador MD Unavailable [phone] Fabien Burgos NP Unavailable [phone] Aram Modi MD Primary Care Provider Unaintermountain healthcareAngelica Hahn MD Unavailable [phone] Encounter Details Date Type Department Care Team Description 04/06/2019 Pt. Non Urgent Medical Question Rheumatology - [place] [address] [place] [address] Simon Garcia MD Social History Tobacco Use Types Packs/Day Years Used Date Smoking Tobacco: Former Smokeless Tobacco: Former Comments:quit 30 yrs ago- sm oked only about 5 cigarettes / day Alcohol Use Standard Drinks/Week Comments Yes 0 (1 standard drink = 0.6 oz pur e alcohol) 2 to 3 glasses of wine weekly Sex Assigned at Date Recorded Not on file Job Start Date Occupation Industry Not on file Not on file Not on file documented as of this encounter Plan of Treatment Not on file documented as of this encounter Visit Diagnoses Not on filedocumented in this encounter Care Teams Negative Turner Apprentice Relationship Specialty Start Date End Date Aram Modi MD PCP - General Internal Medicine 04/22/17 09/10/20 [facility], Pcp PCP - General Internal Medicine 09/11/20 02/17/23 Aram Modi MD PCP - General Internal Medicine 02/18/23 Ravinder Jose MD Specialist Cardiology 02/11/23 Fabien Burgos NP Specialist Cardiology 02/11/23 Angelica Price MD [address] [place] [address] Specialist Cardiology 03/11/23 documented as of this encounter
--- OUTSIDE RECORDS SUMMARY | 2024-06-24 09:44 | XMS_ITS | Encounter Summary ---
Author Organization [facility] Address [address] [place] [address] Care Team Providers Care Bus Escort Name Role Phone Gael Coffman MD Primary Care Provider Unavail able Aram Mdoi MD Primary Care Provider Luis E Parker Primary Care Provider UnavailRavinder Wallace MD Unavailable [phone] Fabien Burgos NP Unavailable [phone] Aram Modi MD Primary Care Provider Angelica Cardozo MD Unavailable [phone] Encounter Details Date Type Department Care Team Description 11/16/2016 [facility] Medical Records [address] [place] [address] Manolo Hurtado MD Social History Tobacco Use Types Packs/Day [...] on filedocumented in this encounter Care Teams Bus Escort Relationship Specialty Start Date End Date Gael Coffman MD PCP - General 06/10/01 04/21/17 Aram Modi MD PCP - General Internal Medicine 04/22/17 09/10/20 [facility], Pcp PCP - General Internal Medicine 09/11/20 02/17/23 Aram Modi MD PCP - General Internal Medicine 02/18/23 Ravinder Jose MD Specialist Cardiology 02/11/23 Fabien Burgos NP Specialist Cardiology 02/11/23 Angelica Price MD [address] [place] [address] Specialist Cardiology 03/11/23 documented as of this encounter
--- OUTSIDE RECORDS SUMMARY | 2024-06-24 09:44 | XMS_ITS | Encounter Summary ---
Author Organization [facility] Address [address] [place] [address] Care Team Providers Care Can Piler Name Role Phone Aram Modi MD Primary Care Provider Unakuldeep Gilmore Pcp Primary Care Provider [facility] Ravinder Salvador MD Unavailable [phone] Fabien Burgos NP Unavailable [phone] Aram Modi MD Primary Care Provider Unava Angelica Russell MD Unavailable [phone] Encounter Details Date Type Department Care Team Description 11/01/2018 Pt. Non Urgent Medical Question Rheumatology - [place] [address] [place] [address] Simon Garcia MD Social History Tobacco Use [...] on file documented as of this encounter Miscellaneous Notes * Telephone Encounter - Trupti Simon L.P.N. - 11/02/2018 8:38 AM EDTFrom: Cy Barrera Rosie To: Simon Garcia MD Sent: 11/01/2018 6:13 AM EDT Subject: Prednisone Hi Again Rach, Question is need to confirm per your phone message that the regiment Dr. Garcia put me on and Merrick to continue is two 2.5 MG twice a day. Then the reduction next week is one 2.5 MG twice a day. Please confirm or correct my understanding. Thank you Again, Shan Velez documented in this encounter Plan of Treatment Not on file documented as of this encounter Visit Diagnoses Not on filedocumented in this encounter Care Teams Can Piler Relationship Specialty Start Date End Date Aram Modi MD PCP - General Internal Medicine 04/22/17 09/10/20 [facility] PCP - General Internal Medicine 09/11/20 02/17/23 Aram Modi MD PCP - General Internal Medicine 02/18/23 Rvainder Jose MD Specialist Cardiology 02/11/23 Fabien Burgos NP Specialist Cardiology 02/11/23 Angelica Price MD [address] [place] [address] Specialist Cardiology 03/11/23 documented as of this encounter
--- OUTSIDE RECORDS SUMMARY | 2024-06-24 09:44 | XMS_ITS | Encounter Summary ---
Author Organization [facility] Address [address] [place] [address] Care Team Providers Care Diagnostics Sales Developer Name Role Phone Gael Coffman MD Primary Care Provider Unavail able Aram Modi MD Primary Care Provider Yanet Gilmore Pcp Primary Care Provider UnavailRavinder Wallace MD Unavailable [phone] Fabien Burgos NP Unavailable [phone] Aram Modi MD Primary Care Provider Angelica Cardozo MD Unavailable [phone] Encounter Details Date Type Department Care Team Description 06/06/2014 [facility] Medical Records [address] [place] [address] Crystal Talley Social History Tobacco Use Types Packs/Day Years [...] on filedocumented in this encounter Care Teams Diagnostics Sales Developer Relationship Specialty Start Date End Date Gael Coffman MD PCP - General 06/10/01 04/21/17 Aram Modi MD PCP - General Internal Medicine 04/22/17 09/10/20 [facility], Pcp PCP - General Internal Medicine 09/11/20 02/17/23 Aram Modi MD PCP - General Internal Medicine 02/18/23 Ravinder Jose MD Specialist Cardiology 02/11/23 Fabien Burgos NP Specialist Cardiology 02/11/23 Angelica Price MD [address] [place] [address] Specialist Cardiology 03/11/23 documented as of this encounter
--- OUTSIDE RECORDS SUMMARY | 2024-06-24 09:44 | XMS_ITS | Encounter Summary ---
Author Organization [facility] Address [address] [place] [address] Care Team Providers Care Nutrition Tech Name Role Phone Gael Coffman MD Primary Care Provider Unavail able Aram Modi MD Primary Care Provider Luis E Parker Primary Care Provider UnavailRavinder Wallace MD Unavailable [phone] Fabien Burgos NP Unavailable [phone] Aram Modi MD Primary Care Provider Angelica Cardozo MD Unavailable Encounter Details Date Type Department Care Team Description 04/26/2013 Smoking Pipe Mounter Report Medical Records [address] [place] [address] Ricky Douglas Social History Tobacco Use Types Packs/Day Years Used Date Smoking Tobacco: Former Smokeless Tobacco: Never Comments:quit 30 yrs ago- sm oked only about 5 cigarettes / day Alcohol Use Standard Drinks/Week Comments Not Asked 0 (1 standard drink = 0.6 oz pur e alcohol) Sex Assigned at Date Recorded Not on file Job Start Date Occupation Industry Not on file Not on file Not on file documented as of this encounter Plan of Treatment Not on file documented as of this encounter Visit Diagnoses Not on filedocumented in this encounter Care Teams Nutrition Tech Relationship Specialty Start Date End Date Gael Coffman MD PCP - General 06/10/01 04/21/17 Aram Modi MD PCP - General Internal Medicine 04/22/17 09/10/20 [facility], Pcp PCP - General Internal Medicine 09/11/20 02/17/23 Aram Modi MD PCP - General Internal Medicine 02/18/23 Ravinder Jose MD Specialist Cardiology 02/11/23 Fabien Burgos NP Specialist Cardiology 02/11/23 Angelica Price MD [address] [place] [address] Specialist Cardiology 03/11/23 documented as of this encounter
--- OUTSIDE RECORDS SUMMARY | 2024-06-24 09:44 | XMS_ITS | Encounter Summary ---
Author Organization [facility] Address [address] [place] [address] Care Team Providers Care Cell Assembly Pinner Name Role Phone Gael Coffman MD Primary Care Provider Unavail able Aram Modi MD Primary Care Provider Yanet Gimlore Pcp Primary Care Provider UnavailRavinder Wallace MD Unavailable [phone] Fabien Burgos NP Unavailable [phone] Aram Modi MD Primary Care Provider Angelica Cardozo MD Unavailable [phone] Encounter Details Date Type Department Care Team Description 01/21/2014 [facility] Medical Records [address] [place] [address] Mathew, Elo Social History Tobacco Use Types Packs/Day Years [...] on filedocumented in this encounter Care Teams Cell Assembly Pinner Relationship Specialty Start Date End Date Gael Coffman MD PCP - General 06/10/01 04/21/17 Aram Modi MD PCP - General Internal Medicine 04/22/17 09/10/20 [facility], Pcp PCP - General Internal Medicine 09/11/20 02/17/23 Aram Modi MD PCP - General Internal Medicine 02/18/23 Ravinder Jose MD Specialist Cardiology 02/11/23 Fabien Burgos NP Specialist Cardiology 02/11/23 Angelica Price MD [address] [place] [address] Specialist Cardiology 03/11/23 documented as of this encounter
--- OUTSIDE RECORDS SUMMARY | 2024-06-24 09:44 | XMS_ITS | Encounter Summary ---
Author Organization [facility] Address [address] [place] [address] Care Team Providers Care Computer Systems Security Analyst Name Role Phone Gael Coffman MD Primary Care Provider Unavail able Aram Modi MD Primary Care Provider Yanet Gilmore Pcp Primary Care Provider UnavailRavinder Wallace MD Unavailable [phone] Fabien Burgos NP Unavailable [phone] Aram Modi MD Primary Care Provider Angelica Cardozo MD Unavailable [phone] Encounter Details Date Type Department Care Team Description 06/07/2014 [facility] Medical Records [address] [place] [address] Danielle Santiago MD Social History Tobacco Use Types Packs/Day [...] on filedocumented in this encounter Care Teams Computer Systems Security Analyst Relationship Specialty Start Date End Date Gael Coffman MD PCP - General 06/10/01 04/21/17 Aram Modi MD PCP - General Internal Medicine 04/22/17 09/10/20 [facility], Pcp PCP - General Internal Medicine 09/11/20 02/17/23 Aram Modi MD PCP - General Internal Medicine 02/18/23 Ravinder Jose MD Specialist Cardiology 02/11/23 Fabien Burgos NP Specialist Cardiology 02/11/23 Angelica Price MD [address] [place] [address] Specialist Cardiology 03/11/23 documented as of this encounter
--- OUTSIDE RECORDS SUMMARY | 2024-06-24 09:44 | XMS_ITS | Encounter Summary ---
Author Organization [facility] Address [address] [place] [address] Care Team Providers Care Field Court Researcher Name Role Phone Aram Modi MD Primary Care Provider Yanet Gilmore Pcp Primary Care Provider UnavailRavinder Wallace MD Unavailable [phone] Fabien Burgos NP Unavailable [phone] Aram Modi MD Primary Care Provider Angelica Cardozo MD Unavailable [phone] Encounter Details Date Type Department Care Team Description 10/09/2018 [facility] Medical Records [address] [place], [place] [address] [place] [address] Social History Tobacco Use Types Packs/Day Years [...] on filedocumented in this encounter Care Teams Field Court Researcher Relationship Specialty Start Date End Date Aram Modi MD PCP - General Internal Medicine 04/22/17 09/10/20 [facility]cp PCP - General Internal Medicine 09/11/20 02/17/23 Aram Modi MD PCP - General Internal Medicine 02/18/23 Ravinder Jose MD Specialist Cardiology 02/11/23 Fabien Burgos NP Specialist Cardiology 02/11/23 Angelica Price MD [address] [address] Specialist Cardiology 03/11/23 documented as of this encounter
--- OUTSIDE RECORDS SUMMARY | 2024-06-24 09:44 | XMS_ITS | Encounter Summary ---
Author Organization [facility] Address [address] [place] [address] Care Team Providers Care Manager Of Operations Name Role Phone Gael Coffman MD Primary Care Provider Unavail able Aram Modi MD Primary Care Provider Yanet Gilmore Pcp Primary Care Provider UnavailRavinder Wallace MD Unavailable [phone] Fabien Burgos NP Unavailable [phone] Aram Modi MD Primary Care Provider Angelica Cardozo MD Unavailable Reason for Visit * Reason Onset Date Comments Advice 06/03/2014 Encounter Details Date Type Department Care Team Description 06/03/2014 Pt. Non Urgent Medical Question Adult Medicine - [place] [address] [place] [address] Gael Coffman MD Social History Tobacco Use Types Packs/Day [...] as of this encounter Progress Notes * Vanessa OrtizP.NDaisy - 06/03/2014 8:54 AM ESTFrom: Cy Velez To: Gael Coffman MD Sent: 06/03/2014 7:00 AM EST Subject: Statins Dear Dr. Coffman Is it possible that the statin I'm now taking is causing my problems. The pain is now severe and inmy shoulders, the right more then the left. My problems started around the same time my meds were changed from Lipitor to Atorvastatin. I may be out in left field here, but nothing seems to be working and all tests are okay. I ended up in the hospital again ([place]) and they did the ultrasound and it came back Okay. Your thoughts please Shan Velez documented in this encounter Plan of Treatment Not on file documented as of this encounter Visit Diagnoses Not on filedocumented in this encounter Care Teams Manager Of Operations Relationship Specialty Start Date End Date Gael Coffman MD PCP - General 06/10/01 04/21/17 Aram Modi MD PCP - General Internal Medicine 04/22/17 09/10/20 [facility] PCP - General Internal Medicine 09/11/20 02/17/23 Aram Modi MD PCP - General Internal Medicine 02/18/23 Ravinder Jose MD Specialist Cardiology 02/11/23 Fabien Burgos NP Specialist Cardiology 02/11/23 Angelica Price MD [address] [place] [address] Specialist Cardiology 03/11/23 documented as of this encounter
--- OUTSIDE RECORDS SUMMARY | 2024-06-24 09:44 | XMS_ITS | Encounter Summary ---
Author Organization [facility] Address [address] [place] [address] Care Team Providers Care Regrinder Operator Name Role Phone Gael Coffman MD Primary Care Provider Unavail able Aram Modi MD Primary Care Provider Yanet Gilmore Pcp Primary Care Provider UnavailRavinder Wallace MD Unavailable [phone] Fabien Burgos NP Unavailable [phone] Aram Modi MD Primary Care Provider Angelica Cardozo MD Unavailable [phone] Encounter Details Date Type Department Care Team Description 11/18/2016 [facility] Medical Records [address] [place] [address] Social History Tobacco Use Types Packs/Day Years [...] on filedocumented in this encounter Care Teams Regrinder Operator Relationship Specialty Start Date End Date Gael Coffman MD PCP - General 06/10/01 04/21/17 Aram Modi MD PCP - General Internal Medicine 04/22/17 09/10/20 [facility] Pcp PCP - General Internal Medicine 09/11/20 02/17/23 Aram Modi MD PCP - General Internal Medicine 02/18/23 Ravinder Jose MD Specialist Cardiology 02/11/23 Fabien Burgos NP Specialist Cardiology 02/11/23 Angelica Price MD [address] [place] [address] Specialist Cardiology 03/11/23 documented as of this encounter
--- OUTSIDE RECORDS SUMMARY | 2024-06-24 09:44 | XMS_ITS | Encounter Summary ---
Author Organization [facility] Address [address] [place] [address] Care Team Providers Care Mice Raiser Name Role Phone Gael Coffman MD Primary Care Provider Unavail able Aram Moid MD Primary Care Provider Luis E Parker Primary Care Provider UnavailRavinder Wallace MD Unavailable [phone] Fabien Burgos NP Unavailable [phone] Aram Modi MD Primary Care Provider Angelica Cardozo MD Unavailable [phone] Encounter Details Date Type Department Care Team Description 09/16/2013 [facility] Medical Records [address] [place] [address] Abstract, Provider Social History Tobacco Use Types Packs/Day Years [...] on filedocumented in this encounter Care Teams Mice Raiser Relationship Specialty Start Date End Date Gael Coffman MD PCP - General 06/10/01 04/21/17 Aram Modi MD PCP - General Internal Medicine 04/22/17 09/10/20 [facility], Pcp PCP - General Internal Medicine 09/11/20 02/17/23 Aram Modi MD PCP - General Internal Medicine 02/18/23 Ravinder Jose MD Specialist Cardiology 02/11/23 Fabien Burgos NP Specialist Cardiology 02/11/23 Angelica Price MD [address] [place] [address] Specialist Cardiology 03/11/23 documented as of this encounter
--- OUTSIDE RECORDS SUMMARY | 2024-06-24 09:44 | XMS_ITS | Encounter Summary ---
Author Organization [facility] Address [address] [place] [address] Care Team Providers Care Home Health Provider Name Role Phone Aram Modi MD Primary Care Provider Yanet Gilmore Pcp [facility] Ravinder Salvador MD Unavailable [phone] Fabien Burgos NP Unavailable [phone] Aram Modi MD Primary Care Provider Unava Angelica Russell MD Unavailable [phone] Encounter Details Date Type Department Care Team Description 07/04/2020 Orders Only Medicine/Pediatrics - [address] [address] Aram Modi MD Stage 3 chronic kidney disease, unspecified whether stage 3a or 3b CKD (Primary Dx) Social History Tobacco Use Types Packs/Day Years [...] file Not on file Not on file COVID-19 Exposure Response Date Recorded In the last month, have you been in contact with someone who was confirmed or suspected to have Coronavirus / COVID-19? No / Unsure 07/03/2020 10:55 AM EST documented as of this encounter Plan of Treatment Not on file documented as of this encounter Results * (ABNORMAL) BASIC METABOLIC PANEL (07/25/2020 9:51 AM EST) Blood Urea Nitrogen 32(H) 5 - 25 mg/dL 07/25/2020 12:32 PM EST [facility] CREAT 1.39(H) 0.7 - 1.3 mg/dL 07/25/2020 12:32 PM EST [facility] GLOMERULAR FILTRATION RATE 49 07/25/2020 12:32 PM EST [facility] Comment: If patient is -[place], multiply result by 1.21 Chronic Kidney Disease: < 60 ml/min/1.73 square meters Kidney Failure: < 15 ml/min/1.73 square meters NA 139 135 - 145 mEq/L 07/25/2020 12:32 PM EST [facility] K 4.4 3.5 - 5.5 mmol/L 07/25/2020 12:32 PM EST [facility] CL 107 96 - 110 mmol/L 07/25/2020 12:32 PM EST [facility] CARBON DIOXIDE (CO2) 25 21 - 32 mmol/L 07/25/2020 12:32 PM EST [facility] ANION GAP 7 3 - 11 07/25/2020 12:32 PM EST [facility] CALCIUM 9.0 8.5 - 10.5 mg/dL 07/25/2020 12:32 PM EST [facility] GLUCOSE 109(H) 70 - 100 mg/dL 07/25/2020 12:44 PM EST [facility] Comment:Reference range appl icable to fasting specimens only 07/25/2020 9:51 AM EST 07/25/2020 9:51 AM EST Aram Modi MD LAB [facility] documented in this encounter Visit Diagnoses Diagnosis Stage 3 chronic kidney disease, unspecified whether stage 3a or 3b CKD (HCC)- Primary documented in this encounter Care Teams Home Health Provider Relationship Specialty Start Date End Date Aram Modi MD PCP - General Internal Medicine 04/22/17 09/10/20 [facility] PCP - General Internal Medicine 09/11/20 02/17/23 Aram Modi MD PCP - General Internal Medicine 02/18/23 Ravinder Jose MD Specialist Cardiology 02/11/23 Fabien Burgos NP Specialist Cardiology 02/11/23 Angelica Price MD 300 [facility] [address] [place] [address] Specialist Cardiology 03/11/23 documented as of this encounter
--- OUTSIDE RECORDS SUMMARY | 2024-06-24 09:44 | XMS_ITS | Encounter Summary ---
Author Organization [facility] Address [address] [place] [address] Care Team Providers Care Senior Statistician Name Role Phone Aram Modi MD Primary Care Provider [phone] Reason for Visit * Reason Onset Date Comments Medical Records 05/20/2024 Encounter Details Date Type Department Care Team (Late st Contact Info) Description 05/20/2024 Telephone [facility] Cardiology [facility] [address] [place] [phone] Aram Modi MD [address] [address] Medical Records Social History Tobacco [...] EKG, device check and holter report to [facility] Att: Clarisa at [phone] on 05/20/2024 documented in this encounter Plan of Treatment Upcoming Encounters Date Type Department Care Team (Late st Contact Info) Description 10/28/2024 9:10 AM EDT Office Visit [facility] [address] [place] [address] Fabien Burgos NP [address] [place] [address] [place] [address] [place] [address] 04/20/2025 8:00 AM EST Ancillary Procedure [facility] Cardiology [facility] [address] [place] [id number] documented as of this encounter Visit Diagnoses Not on filedocumented in this encounter Care Teams Senior Statistician Relationship Specialty Start Date End Date Aram Modi MD [address] [address] PCP - General 04/22/17 documented as of this encounter
--- OUTSIDE RECORDS SUMMARY | 2024-06-24 09:44 | XMS_ITS | Encounter Summary ---
Author Organization [facility] Address [address] [place] [address] Care Team Providers Care Information Operator Name Role Phone Aram Modi MD Primary Care Provider Yanet Gilmore Pcp Primary [facility] Ravinder Salvador MD Unavailable [phone] Fabien Burgos NP Unavailable [phone] Aram Modi MD Primary Care Provider Unava Angelica Russell MD Unavailable [phone] Encounter Details Date Type Department Care Team Description 07/25/2020 Orders Only Medicine/Pediatrics - [address] [address] Aram Modi MD Stage 3 chronic kidney [...] have Coronavirus / COVID-19? No / Unsure 07/25/2020 8:37 AM EST documented as of this encounter Plan of Treatment Scheduled Orders Name Type Priority Associated Diagnoses Orde r Schedule BASIC METABOLIC PANEL Lab Routine Stage 3 chronic kidney disease, unspecified whether stage 3a or 3b CKD Expected: 07/25/2020, Expires: 07/25/2021 documented as of this encounter Visit Diagnoses Diagnosis Stage 3 chronic kidney disease, unspecified whether stage 3a or 3b CKD (HCC)- Primary documented in this encounter Care Teams Information Operator Relationship Specialty Start Date End Date Aram Modi MD PCP - General Internal Medicine 04/22/17 09/10/20 [facility] [place] - General Internal Medicine 09/11/20 02/17/23 Aram Modi MD PCP - General Internal Medicine 02/18/23 Ravinder Jose MD Specialist Cardiology 02/11/23 Fabien Burgos NP Specialist Cardiology 02/11/23 Angelica Price MD [address] [place] [address] Specialist Cardiology 03/11/23 documented as of this encounter
--- OUTSIDE RECORDS SUMMARY | 2024-06-24 09:44 | XMS_ITS | Clinical Summary ---
Author Organization [facility] Address [address] [address] Phone Care Team Providers Care Deaf Teacher Name Role Phone Aram Modi MD Primary Care Provider [phone] Allergies Active Allergy Reactions Criticality Noted Date [...] 04/09/2023 Overview (04/09/2023): Done on 02/03/2023 at [facility] indications:CHF Multiple premature ventricular complexes 021 04/09/2023 [...] sleep apnea 03/29/2014 04/09/20 23 Overview (04/09/2023): [facility] Home Polysomnogram: Date 02/13/2017; AHI 12, [...] Office Visit [facility] [address] [facility] [address] [place] [phone] Abhishek Haynes MD Stage 3a chronic kidney disease (HCC) (Primary Dx); Hypertension; Heart failure with reduced ejection fraction (HCC) 04/27/2024 Orders Only [facility] [address] [facility] [address] [place] [phone] Abhishek Haynes MD from Last 3 Months [...] Visit [facility] [address] [address] Abhishek Haynes MD [address] [address] Health Maintenance Due Date Last [...] Creatinine, Ur 44.9 Not Estab. mg/dL [facility] Urine Microalbumin <3.0 Not Estab. ug/mL [facility] Microalbumin/Crea tinine Ratio <7 0 - 29 mg/g creat [facility] Comment: ? Normal: ?0 - ??29 ? Moderately increased: 30 - 300 ? Severely increased: ? >300 04/27/2024 12:5 1 PM EST 04/27/2024 us Abhishek Haynes MD LAB URINE ORDERABLES Final Resul t Performing Organization Address [facility] Co de Phone Number [facility] [address] [place] [address] * (ABNORMAL) Vitamin D 25 Hydroxy (04/27/2024 12:51 PM EST) Vitamin D, 25-OH, Total 27.0(L) 30.0 - 100.0 ng/mL [facility] Comment: Vitamin D deficiency has been defined by the [place] of Medicine and an Endocrine Society practice guideline as a level of serum 25-OH vitamin D less than 20 ng/mL (1,2). The Endocrine Society went on to further define vitamin D insufficiency as a level between 21 and 29 ng/mL (2). 1. IOM ([place] of Medicine). 2010. Dietary reference ?? intakes for calcium and D. [place]: The ?? [employer]. 2. Soheila MF, Samantha LAWSON, Vanda BURGESS, et al. ?? Evaluation, treatment, and prevention of vitamin D ?? deficiency: an Endocrine Society clinical practice ?? guideline. JCEM. 2010; 96(7):1911-30. 04/27/2024 12:5 1 PM EST 04/27/2024 us Abhishek Haynes MD LAB BLOOD ORDERABLES Final Resul t Performing Organization Address [facility] Co de Phone Number [facility] [address] [place] [address] * (ABNORMAL) PTH, Intact (04/27/2024 12:51 PM EST) PTH 80(H) 15 - 65 pg/mL [facility] 04/27/2024 12:5 1 PM EST 04/27/2024 us Abhishek Haynes MD LAB BLOOD ORDERABLES Final Resul t Performing Organization Address [facility] Co de Phone Number [facility] [address] [place] [address] * (ABNORMAL) Renal Function Panel (04/27/2024 12:51 PM EST) Glucose 102(H) 70 - 99 mg/dL [facility] BUN 36(H) 8 - 27 mg/dL [facility] Creatinine 1.41(H) 0.76 - 1.27 mg/dL [facility] eGFR CKD-EPI CR 2020 49(L) >59 mL/min/1.7 3 [facility] BUN/Creatinine Ratio 26(H) 10 - 24 [facility] Sodium 140 134 - 144 mmol/L [facility] Potassium 4.5 3.5 - 5.2 mmol/L [facility] Chloride 103 96 - 106 mmol/L [facility] Bicarbonate (CO2) 21 20 - 29 mmol/L [facility] Calcium 9.1 8.6 - 10.2 mg/dL [facility] Phosphorus 3.2 2.8 - 4.1 mg/dL [facility] Albumin 4.3 3.7 - 4.7 g/dL [facility] 04/27/2024 12:5 1 PM EST 04/27/2024 us Abhishek Haynes MD LAB BLOOD ORDERABLES Final Resul t [facility] [address] [place] [address] from Last 3 Months Insurance MEDICARE [facility] MEDICARE [facility] Care Teams Deaf Teacher Relationship Specialty Start Date End Date Aram Modi MD [address] [place] [address] PCP - General Internal Medicine 04/09/23
--- OUTSIDE RECORDS SUMMARY | 2024-06-24 09:44 | XMS_ITS | Encounter Summary ---
Author Organization [facility] Address [address] [place] [address] Care Team Providers Care Analytical Consultant Name Role Phone Gael Coffman MD Primary Care Provider Unavail able Aram Modi MD Primary Care Provider Yanet Gilmore Pcp Primary Care Provider UnavailRavinder Wallace MD Unavailable [phone] Fabien Burgos NP Unavailable [phone] Aram Modi MD Primary Care Provider Angelica Cardozo MD Unavailable [phone] Reason for Visit * Reason Onset Date Comments Advice 07/14/2014 Encounter Details Date Type Department Care Team Description 07/14/2014 Pt. Non Urgent Medical Question Adult Medicine - [place] [address] [place] [address] Gael Coffman MD Social History Tobacco Use [...] of this encounter Progress Notes * Vanessa OrtizPDaisyNDaisy - 07/14/2014 8:26 AM ESTFrom: Cy Velez To: Gael Coffman MD Sent: 07/14/2014 8:25 AM EST Subject: RX Dicyclomine Dear Dr. Coffman, I have completed the Prescription for Dicyclomine 10 MG 4 times a day. It has helped with the severe stomach pains. However, the quick stopping instead of a gradual decreasing has brought back some of the pain. I was wondering only if you agree if you could call in a new script for approximately 21pills. I could then take 2 pills per day for one week then decrease to 1 for a week. Thank you, Shan Velez documented in this encounter Plan of Treatment Not on file documented as of this encounter Visit Diagnoses Not on filedocumented in this encounter Care Teams Analytical Consultant Relationship Specialty Start Date End Date Gael Coffman MD PCP - General 06/10/01 04/21/17 Aram Modi MD PCP - General Internal Medicine 04/22/17 09/10/20 [facility], Pcp PCP - General Internal Medicine 09/11/20 02/17/23 Aram Modi MD PCP - General Internal Medicine 02/18/23 Ravinder Jose MD Specialist Cardiology 02/11/23 Fabien Burgos NP Specialist Cardiology 02/11/23 Angelica Price MD [address] [place] [address] Specialist Cardiology 03/11/23 documented as of this encounter
--- OUTSIDE RECORDS SUMMARY | 2024-06-24 09:44 | XMS_ITS | Encounter Summary ---
Author Organization [facility] Address [address] [place] [address] Care Team Providers Care Room Attendants Name Role Phone Gael Coffman MD Primary Care Provider Unavail able Aram Modi MD Primary Care Provider Yanet Gilmore Pcp Primary Care Provider UnavailRavinder Wallace MD Unavailable [phone] Fabien Burgos NP Unavailable [phone] Aram Modi MD Primary Care Provider Angelica Cardozo MD Unavailable [phone] Encounter Details Date Type Department Care Team Description 11/15/2016 [facility] Medical Records [address] [place] [address] Social History Tobacco Use Types Packs/Day Years [...] on filedocumented in this encounter Care Teams Room Attendants Relationship Specialty Start Date End Date Gael Coffman MD PCP - General 06/10/01 04/21/17 Aram Modi MD PCP - General Internal Medicine 04/22/17 09/10/20 [facility] Pcp PCP - General Internal Medicine 09/11/20 02/17/23 Aram Modi MD PCP - General Internal Medicine 02/18/23 Ravinder Jose MD Specialist Cardiology 02/11/23 Fabien Burgos NP Specialist Cardiology 02/11/23 Angelica Price MD [address] [place] [address] Specialist Cardiology 03/11/23 documented as of this encounter
--- OUTSIDE RECORDS SUMMARY | 2024-06-24 09:44 | XMS_ITS | Encounter Summary ---
Author Organization [facility] Address [address] [place] [address] Care Team Providers Care [employer] Name Role Phone Gael Coffman MD Primary Care Provider Unavail able Aram Modi MD Primary Care Provider Luis E Parker Primary Care Provider UnavailRavinder Wallace MD Unavailable [phone] Fabien Burgos NP Unavailable [phone] Aram Modi MD Primary Care Provider Angelica Cardozo MD Unavailable [phone] Encounter Details Date Type Department Care Team Description 12/03/2012 Ferryboat Operator Helper Report Medical Records [address] [place] [address] [address] Souza Social History Tobacco Use Types Packs/Day Years [...] on filedocumented in this encounter Care Teams [employer] Relationship Specialty Start Date End Date Gael Coffman MD PCP - General 06/10/01 04/21/17 Aram Modi MD PCP - General Internal Medicine 04/22/17 09/10/20 [facility], Pcp PCP - General Internal Medicine 09/11/20 02/17/23 Aram Modi MD PCP - General Internal Medicine 02/18/23 Ravinder Jose MD Specialist Cardiology 02/11/23 Fabien Burgos NP Specialist Cardiology 02/11/23 Angelica Price MD [address] [place] [address] Specialist Cardiology 03/11/23 documented as of this encounter
--- OUTSIDE RECORDS SUMMARY | 2024-06-24 09:44 | XMS_ITS | Encounter Summary ---
Author Organization [facility] Address [address] [place] [address] Care Team Providers Care Gas Welding Machine Operator Name Role Phone Gael Coffman MD Primary Care Provider Unavail able Aram Modi MD Primary Care Provider Yanet Gilmore Pcp Primary Care Provider UnavailRavinder Wallace MD Unavailable [phone] Fabien Burgos NP Unavailable [phone] Aram Modi MD Primary Care Provider Angelica Cardozo MD Unavailable [phone] Reason for Visit * Reason Onset Date Comments Medication 07/16/2016 Encounter Details Date Type Department Care Team Description 07/16/2016 Telephone Adult Medicine [facility] [address] [place] [address] Gael Coffman MD Medication Social History Tobacco Use Types Packs/Day Years [...] encounter Miscellaneous Notes * Telephone Encounter - Sadie Collins M.A. - 07/16/2016 3:34 PM EST Date of last office visit was 02/27/16 * Telephone Encounter - Sean Dozier - 07/16/2016 3:05 PM EST Patient would like script to be: E-PRESCRIBED/FAXED TO PHARMACY WHEN WAS THE PATIENT'S LAST APPOINTMENT IN ADULT MEDICINE? 02/27/2016 WHEN WAS THE LAST TIME THE PATIENT SAW THEIR PCP? 12/25/2015 Does patient have an upcoming appointment? No-patient refused appointment, will call back to book appointment (THE MEDICATION REQUESTED IS ON THE MED LIST ABOVE) All of the medications requested were on the CURRENT MEDS list Did you check the Pharmacy information above?: YES Patient wants: 90 -day supply Is this a mail order prescription request ? NO Patients current insurance carrier is: [place] / [place] / Product Type: MEDICARE [id number] documented in this encounter Plan of Treatment Not on file documented as of this encounter Visit Diagnoses Not on filedocumented in this encounter Care Teams Gas Welding Machine Operator Relationship Specialty Start Date End Date Gael Coffman MD PCP - General 06/10/01 04/21/17 Aram Modi MD PCP - General Internal Medicine 04/22/17 09/10/20 [facility] PCP - General Internal Medicine 09/11/20 02/17/23 Aram Modi MD PCP - General Internal Medicine 02/18/23 Ravinder Jose MD Specialist Cardiology 02/11/23 Fabien Burgos NP Specialist Cardiology 02/11/23 Angelica Price MD [address] [address] Specialist Cardiology 03/11/23 documented as of this encounter
--- OUTSIDE RECORDS SUMMARY | 2024-06-24 09:44 | XMS_ITS | Encounter Summary ---
Author Organization [facility] Address [address] [place] [address] Care Team Providers Care Sales Negotiator Name Role Phone Aram Modi MD Primary Care Provider [phone] Encounter Details Date Type Department Care Team (Late st Contact Info) Description 05/25/2024 7:30 PM EST Ancillary Procedure [facility] [address] [facility] [address] [place] [phone] Social History Tobacco Use Types Packs/Day Years [...] Description 10/28/2024 9:10 AM EDT Office Visit [facility] [address] [place] [phone] Fabien Burgos NP [address] [place] [address] 04/20/2025 8:00 AM EST Ancillary Procedure [facility]iology [facility] [address] [facility] [address] [place] [address] documented as of this encounter Procedures Procedure Name Priority Date/Time Associated Diagnosis Comments CARDIAC DEVICE CHECK- REMOTE- MURJ Routine 05/25/2024 7:29 PM EST documented in this encounter Results * Cardiac device check - Remote- MURJ (05/25/2024 7:29 PM EST) Date Time Interrogation Session [id number] CV DEVICE CHECK Type Interrogation Session Remote Scheduled CV DEVICE CHECK Implantable Pulse Generator Case Finisher BSX CV DEVICE CHECK Implantable Pulse Generator Type BLACK POWDER GLAZING OPERATOR-P CV DEVICE CHECK Implantable Pulse Generator Model [id number] CV DEVICE CHECK Implantable Pulse Generator Serial Number [id number] CV DEVICE CHECK Implantable Pulse Generator Implant Date 20230305 CV DEVICE CHECK Battery Remaining Percentage 100.00 CV DEVICE CHECK Battery Remaining Longevity 114.0 CV DEVICE CHECK Battery Status Beginning of Service CV DEVICE CHECK Ayan Statistic RA Percent Paced 41.00 CV DEVICE CHECK Ayan Statistic RV Percent Paced 100.00 CV DEVICE CHECK BLACK POWDER GLAZING OPERATOR Statistic LV Percent Paced 100.00 CV DEVICE CHECK Atrial Tachy Statistic AT/AF [place] Percent 0.00 CV DEVICE CHECK Lead Channel [...] CV DEVICE CHECK Ventricular chambers paced during BLACK POWDER GLAZING OPERATOR pacing. BiV CV DEVICE CHECK Ayan Setting Lower Rate Limit 60 CV DEVICE CHECK Ayan Setting AT Mode Switch Rate 170 CV DEVICE CHECK Ayan Setting Maximum Tracking Rate 130 CV DEVICE CHECK Ayan Setting Maximum Sensor Rate 130 CV DEVICE CHECK Ayan Setting PAV Delay 150 CV DEVICE CHECK Ayan Setting SUZY Delay 100 CV DEVICE CHECK BLACK POWDER GLAZING OPERATOR LV-RV Delay 0 CV D EVICE CHECK [...] on filedocumented in this encounter Care Teams Sales Negotiator Relationship Specialty Start Date End Date Aram Modi MD [address] [place] [address] PCP - General 04/22/17 documented as of this encounter
--- OUTSIDE RECORDS SUMMARY | 2024-06-24 09:44 | XMS_ITS | Encounter Summary ---
Author Organization [facility] Address [address] [place] [address] Care Team Providers Care Director Supplier Quality Name Role Phone Aram Modi MD Primary Care Provider [phone] Reason for Visit * Reason Onset Date Comments Medical Records 04/28/2024 Encounter Details Date Type Department Care Team (Late Contact Info) Description 04/28/2024 Telephone [facility] [address] [place] [phone] Aram Modi MD [address] [address] Medical Records Social History Tobacco [...] 5:01 PM EST Faxed Holter results to [facility] Preop Dept[facility] At [phone] on 04/28/2024 documented in this encounter Plan of Treatment Upcoming Encounters Date Type Department Care Team (Late st Contact Info) Description 10/28/2024 9:10 AM EDT Office Visit [facility] [address] [place] [address] Fabien Burgos NP [address] [place] [address] [address] [place] [address] 04/20/2025 8:00 AM EST Ancillary Procedure [facility] [address] [place] [address] documented as of this encounter Visit Diagnoses Not on filedocumented in this encounter Care Teams Director Supplier Quality Relationship Specialty Start Date End Date Aram Modi MD [address] [address] PCP - General 04/22/17 documented as of this encounter
--- OUTSIDE RECORDS SUMMARY | 2024-06-24 09:44 | XMS_ITS | Encounter Summary ---
Author Organization [facility] Address [address] [place] [address] Care Team Providers Care Mechanical Specialist Name Role Phone Aram Modi MD Primary Care Provider Unakuldeep Gilmore Pcp [facility] Ravinder Salvador MD Unavailable [phone] Fabien Burgos NP Unavailable [phone] Aram Modi MD Primary Care Provider Unava Angelica Russell MD Unavailable [phone] Reason for Visit * Reason Comments E-prescribe Rx Request Encounter Details Date Type Department Care Team Description 04/22/2017 Refill Adult Medicine - [address] [address] Gael Coffman MD E-prescribe Rx Request Social History Tobacco Use Types Packs/Day Years [...] encounter Miscellaneous Notes * Telephone Encounter - Karen Pearl - 04/22/2017 8:53 AM EST Patient would like script to be: E-PRESCRIBED/FAXED TO PHARMACY WHEN WAS THE PATIENT'S LAST APPOINTMENT IN ADULT MEDICINE? 04/04/17 WHEN WAS THE LAST TIME THE PATIENT SAW THEIR PCP? Does patient have an upcoming appointment? no (THE MEDICATION REQUESTED IS ON THE MED LIST ABOVE) All of the medications requested were on the CURRENT MEDS list Did you check the Pharmacy information above?: YES Patient wants: 90 -day supply Is this a mail order prescription request ? YES Patients current insurance carrier is: Payor: MEDICARE-[employer] / Plan: MEDICARE-[employer] / Product Type: MEDICARE [id number] documented in this encounter Plan of Treatment Not on file documented as of this encounter Visit Diagnoses Not on filedocumented in this encounter Care Teams Mechanical Specialist Relationship Specialty Start Date End Date Aram Modi MD PCP - General Internal Medicine 04/22/17 09/10/20 [facility] PCP - General Internal Medicine 09/11/20 02/17/23 Aram Modi MD PCP - General Internal Medicine 02/18/23 Ravinder Jose MD Specialist Cardiology 02/11/23 Fabien Burgos NP Specialist Cardiology 02/11/23 Angelica Price MD 300 [facility] [address] [place] [address] Specialist Cardiology 03/11/23 documented as of this encounter
--- OUTSIDE RECORDS SUMMARY | 2024-06-24 09:44 | XMS_ITS | Encounter Summary ---
Author Organization [facility] Address [address] [place] [address] Care Team Providers Care Air Table Operator Name Role Phone Gael Coffman MD Primary Care Provider Unavail able Aram Modi MD Primary Care Provider Luis E Parker Primary Care Provider UnavailRavinder Wallace MD Unavailable [phone] Fabien Burgos NP Unavailable [phone] Aram Modi MD Primary Care Provider Angelica Cardozo MD Unavailable Encounter Details Date Type Department Care Team Description 11/28/2016 [facility] Medical Records [address] [place] [address] Manolo Hurtado MD Social History Tobacco Use [...] on filedocumented in this encounter Care Teams Air Table Operator Relationship Specialty Start Date End Date Gael Coffman MD PCP - General 06/10/01 04/21/17 Aram Modi MD PCP - General Internal Medicine 04/22/17 09/10/20 [facility], Pcp PCP - General Internal Medicine 09/11/20 02/17/23 Aram Modi MD PCP - General Internal Medicine 02/18/23 Ravinder Jose MD Specialist Cardiology 02/11/23 Fabien Burgos NP Specialist Cardiology 02/11/23 Angelica Price MD [address] [place] [address] Specialist Cardiology 03/11/23 documented as of this encounter
--- OUTSIDE RECORDS SUMMARY | 2024-06-24 09:44 | XMS_ITS | Encounter Summary ---
Author Organization [facility] Address [address] [place] [address] Care Team Providers Care Drug Purchaser Name Role Phone Gael Coffman MD Primary Care Provider Unavail able Aram Modi MD Primary Care Provider Yanet Gilmore Pcp Primary Care Provider UnavailRavinder Wallace MD Unavailable [phone] Fabien Burgos NP Unavailable [phone] Aram Modi MD Primary Care Provider Angelica Cardozo MD Unavailable [phone] Encounter Details Date Type Department Care Team Description 05/30/2014 [facility] Medical Records [address] [place] [address] Trupti Pack Social History Tobacco Use Types Packs/Day Years [...] on filedocumented in this encounter Care Teams Drug Purchaser Relationship Specialty Start Date End Date Gael Coffman MD PCP - General 06/10/01 04/21/17 Aram Modi MD PCP - General Internal Medicine 04/22/17 09/10/20 [facility], Pcp PCP - General Internal Medicine 09/11/20 02/17/23 Aram Modi MD PCP - General Internal Medicine 02/18/23 Ravinder Jose MD Specialist Cardiology 02/11/23 Fabien Burgos NP Specialist Cardiology 02/11/23 Angelica Price MD [address] [place] [address] Specialist Cardiology 03/11/23 documented as of this encounter
--- OUTSIDE RECORDS SUMMARY | 2024-06-24 09:44 | XMS_ITS | Encounter Summary ---
Author Organization [facility] Address [address] [place] [address] Care Team Providers Care Bath Design Sales Consultant Name Role Phone Gael Coffman MD Primary Care Provider Unavail able Aram Modi MD Primary Care Provider Luis E Parker Primary Care Provider UnavailRavinder Wallace MD Unavailable [phone] Fabien Burgos NP Unavailable [phone] Aram Modi MD Primary Care Provider Angelica Cardozo MD Unavailable [phone] Encounter Details Date Type Department Care Team Description 07/14/2012 [facility] Medical Records [address] [place] [address] Abstract, Provider Social History Tobacco Use Types [...] on filedocumented in this encounter Care Teams Bath Design Sales Consultant Relationship Specialty Start Date End Date Gael Coffman MD PCP - General 06/10/01 04/21/17 Aram Modi MD PCP - General Internal Medicine 04/22/17 09/10/20 [facility], Pcp PCP - General Internal Medicine 09/11/20 02/17/23 Aram Modi MD PCP - General Internal Medicine 02/18/23 Ravinder Jose MD Specialist Cardiology 02/11/23 Fabien Burgos NP Specialist Cardiology 02/11/23 Angelica Price MD [address] [place] [address] Specialist Cardiology 03/11/23 documented as of this encounter
--- OUTSIDE RECORDS SUMMARY | 2024-06-24 09:44 | XMS_ITS | Encounter Summary ---
Author Organization [facility] Address [address] [place] [address] Care Team Providers Care Berry Picker Name Role Phone Aram Modi MD Primary Care Provider Unakuldeep Gilmore Pcp Primary Care Provider [facility] Ravinder Salvador MD Unavailable [phone] Fabien Burgos NP Unavailable [phone] Aram Modi MD Primary Care Provider Unava Angelica Russell MD Unavailable [phone] Encounter Details Date Type Department Care Team Description 04/12/2019 Pt. Non Urgent Medical Question Rheumatology - [place] [address] [place] [address] Simon Garcia MD Social History Tobacco Use [...] encounter Miscellaneous Notes * Telephone Encounter - Kacie Acosta M.A. - 04/12/2019 9:41 AM ESTFrom: Cy J Rosie To: Simon Garcia MD Sent: 04/12/2019 9:38 AM EST Subject: SCIATICA / PREDNISONE Hi Dr. Garcia, Would like to report the results of the test on your prescribing a higher dose of prednisone to help alleviate the pain of sciatica. Your starting script called for 4 tabs once a day X 2 days etc. By the secondday, the pain was completely gone. Unfortunately, as t he decrease in tabs per day to one, the painhas returned. Tomorrow I see the chiropractor you recommended. I can only hope his results will help. Regards, Shan Velez documented in this encounter Plan of Treatment Not on file documented as of this encounter Visit Diagnoses Not on filedocumented in this encounter Care Teams Berry Picker Relationship Specialty Start Date End Date Aram Modi MD PCP - General Internal Medicine 04/22/17 09/10/20 [facility] Pcp PCP - General Internal Medicine 09/11/20 02/17/23 Aram Modi MD PCP - General Internal Medicine 02/18/23 Ravinder Jose MD Specialist Cardiology 02/11/23 Fabien Burgos NP Specialist Cardiology 02/11/23 Angelica Price MD [address] [place] [address] Specialist Cardiology 03/11/23 documented as of this encounter
--- OUTSIDE RECORDS SUMMARY | 2024-06-24 09:44 | XMS_ITS | Encounter Summary ---
Author Organization [facility] Address [address] [place] [address] Care Team Providers Care And Taxi Instructor Bus Trolley Name Role Phone Aram Modi MD Primary Care Provider Yanet Gilmore, Pcp Primary Care Provider [facility] Ravinder Salvador MD Unavailable [phone] Fabien Burgos NP Unavailable [phone] Aram Modi MD Primary Care Provider [facility] hospitalAngelica Hahn MD Unavailable [phone] Encounter Details Date Type Department Care Team Description 10/30/2018 Pt. Non Urgent Medical Question Rheumatology - [place] [address] [place] [address] Simon Gacria MD Social History Tobacco Use Types Packs/Day [...] on filedocumented in this encounter Care Teams And Taxi Instructor Bus Trolley Relationship Specialty Start Date End Date Aram Modi MD PCP - General Internal Medicine 04/22/17 09/10/20 [facility], Pcp PCP - General Internal Medicine 09/11/20 02/17/23 Aram Modi MD PCP - General Internal Medicine 02/18/23 Ravinder Jose MD Specialist Cardiology 02/11/23 Fabien Burgos NP Specialist Cardiology 02/11/23 Angelica Price MD [address] [place] [address] Specialist Cardiology 03/11/23 documented as of this encounter
--- OUTSIDE RECORDS SUMMARY | 2024-06-24 09:44 | XMS_ITS | Encounter Summary ---
Author Organization [facility] Address [address] [place] [address] Care Team Providers Care Percussion Instructor Name Role Phone Gael Coffman MD Primary Care Provider Unavail able Aram Modi MD Primary Care Provider Yanet Gilmore Pcp Primary Care Provider UnavailRavinder Wallace MD Unavailable [phone] Fabien Burgos NP Unavailable [phone] Aram Modi MD Primary Care Provider Angelica Cardozo MD Unavailable [phone] Encounter Details Date Type Department Care Team Description 01/07/2017 [facility] Medical Records [address] [place] [address] Abstract, Provider Social History Tobacco Use Types [...] on filedocumented in this encounter Care Teams Percussion Instructor Relationship Specialty Start Date End Date Gael Coffman MD PCP - General 06/10/01 04/21/17 Aram Modi MD PCP - General Internal Medicine 04/22/17 09/10/20 [facility], Pcp PCP - General Internal Medicine 09/11/20 02/17/23 Aram Modi MD PCP - General Internal Medicine 02/18/23 Ravinder Jose MD Specialist Cardiology 02/11/23 Fabien Bugros NP Specialist Cardiology 02/11/23 Angelica Price MD [address] [place] [address] Specialist Cardiology 03/11/23 documented as of this encounter
--- OUTSIDE RECORDS SUMMARY | 2024-06-24 09:44 | XMS_ITS | Encounter Summary ---
Author Organization [facility] Address [address] [place] [address] Care Team Providers Care Inspection Supervisor Name Role Phone Gael Coffman MD Primary Care Provider Unavail able Aram Modi MD Primary Care Provider Yanet Gilmore Pcp Primary Care Provider UnavailRavinder Wallace MD Unavailable [phone] Fabien Burgos NP Unavailable [phone] Aram Modi MD Primary Care Provider Angelica Cardozo MD Unavailable [phone] Encounter Details Date Type Department Care Team Description 01/19/2014 [facility] Medical Records [address] [place] [address] Guanaco Mederos MD Social History Tobacco Use Types Packs/Day [...] on filedocumented in this encounter Care Teams Inspection Supervisor Relationship Specialty Start Date End Date Gael Coffman MD PCP - General 06/10/01 04/21/17 Aram Modi MD PCP - General Internal Medicine 04/22/17 09/10/20 [facility], Pcp PCP - General Internal Medicine 09/11/20 02/17/23 Aram Modi MD PCP - General Internal Medicine 02/18/23 Ravinder Jose MD Specialist Cardiology 02/11/23 Fabien Burgos NP Specialist Cardiology 02/11/23 Angelica Price MD [address] [place] [address] Specialist Cardiology 03/11/23 documented as of this encounter
--- OUTSIDE RECORDS SUMMARY | 2024-06-24 09:44 | XMS_ITS | Encounter Summary ---
Author Organization [facility] Address [address] [place] [address] Care Team Providers Care Technical Lead Name Role Phone Gael Coffman MD Primary Care Provider Unavail able Aram Modi MD Primary Care Provider Yanet Gilmore Pcp Primary Care Provider UnavailRavinder Wallace MD Unavailable [phone] Fabien Burgos NP Unavailable [phone] Aram Modi MD Primary Care Provider Angelica Cardozo MD Unavailable [phone] Reason for Visit * Reason Onset Date Comments other 07/28/2014 Encounter Details Date Type Department Care Team Description 07/28/2014 Pt. Non Urgent Medical Question Adult Medicine - [place] [address] [place] [address] Gael Coffman MD Social History Tobacco Use [...] encounter Progress Notes * Vanessa OrtizP.NDaisy - 07/28/2014 8:24 AM EDTFrom: Cy Holly Rosie To: Gael Coffman MD Sent: 07/28/2014 8:20 AM EDT Subject: [facility] Visit Dear Dr. Coffman, I am faxing my report from Dr. Ghazala Fisher of [facility]. Please note that the one area that she feels I am deficient is vitamin B12. She is suggesting monthly injections. Would it be possible for you to arrange for one of your nurses to administer these injections as I realize your time is to valuable. Thanks and Best Wishes, Shan Velez documented in this encounter Plan of Treatment Not on file documented as of this encounter Visit Diagnoses Not on filedocumented in this encounter Care Teams Technical Lead Relationship Specialty Start Date End Date Gael Coffman MD PCP - General 06/10/01 04/21/17 Aram Modi MD PCP - General Internal Medicine 04/22/17 09/10/20 [facility] PCP - General Internal Medicine 09/11/20 02/17/23 Aram Modi MD PCP - General Internal Medicine 02/18/23 Ravinder Jose MD Specialist Cardiology 02/11/23 Fabien Burgos NP Specialist Cardiology 02/11/23 Angelica Price MD [address] [address] Specialist Cardiology 03/11/23 documented as of this encounter
--- OUTSIDE RECORDS SUMMARY | 2024-06-24 09:44 | XMS_ITS | Encounter Summary ---
Author Organization [facility] Address [address] [place] [address] Care Team Providers Care Branch Or Department Chief Librarian Name Role Phone Community, Pcp Primary Care Provider Unavailcynthia e Ravinder Jose MD Unavailable [phone] Fabien Burgos NP Unavailable [phone] Aram Modi MD Primary Care Provider Angelica Cardozo MD Unavailable [phone] Encounter Details Date Type Department Care Team Description 01/30/2023 [facility] Medical Records [address] [place] [address] Social History Tobacco Use Types Packs/Day Years [...] on file documented as of this encounter Procedures Procedure Name Priority Date/Time Associated Diagnosis Comments OUTSIDE LAB Routine 02/06/2023 OUTSIDE CARDIAC CATH Routine 02/03/2023 OUTSIDE EKG Routine 02/02/2023 OUTSIDE ECHO Routine 01/31/2023 OUTSIDE NUCLEAR STRESS TEST Routine 01/31/2023 documented in this encounter Results * OUTSIDE LAB (02/06/2023) Provider Default LAB * OUTSIDE CARDIAC CATH (02/03/2023) Provider Default CARDIOLOGY * OUTSIDE EKG (02/02/2023) Provider Default CARDIOLOGY * OUTSIDE NUCLEAR STRESS TEST (01/31/2023) Provider Default CARDIOLOGY * OUTSIDE ECHO (01/31/2023) Provider Default CARDIOLOGY documented in this encounter Visit Diagnoses Not on filedocumented in this encounter Care Teams Branch Or Department Chief Librarian Relationship Specialty Start Date End Date Community, Pcp PCP - General Internal Medicine 09/11/20 02/17/23 Aram Modi MD PCP - General Internal Medicine 02/18/23 Ravinder Jose MD Specialist Cardiology 02/11/23 Fabien Burgos NP Specialist Cardiology 02/11/23 Angelica Price MD 300 [facility] [address] [place] [address] Specialist Cardiology 03/11/23 documented as of this encounter
--- OUTSIDE RECORDS SUMMARY | 2024-06-24 09:44 | XMS_ITS | Encounter Summary ---
Author Organization [facility] Address [address] [place] [address] Care Team Providers Care Paper Steamer Name Role Phone Gael Coffman MD Primary Care Provider Unavail able Aram Modi MD Primary Care Provider Yanet Gilmore Pcp Primary Care Provider UnavailRavinder Wallace MD Unavailable [phone] Fabien Burgos NP Unavailable Aram Modi MD Primary Care Provider Angelica Cardozo MD Unavailable [phone] Encounter Details Date Type Department Care Team Description 05/04/2014 [facility] Medical Records [address] [place] [address] Ricky Douglas Social History Tobacco Use Types [...] on filedocumented in this encounter Care Teams Paper Steamer Relationship Specialty Start Date End Date Gael Coffman MD PCP - General 06/10/01 04/21/17 Aram Modi MD PCP - General Internal Medicine 04/22/17 09/10/20 [facility], Pcp PCP - General Internal Medicine 09/11/20 02/17/23 Aram Modi MD PCP - General Internal Medicine 02/18/23 Ravinder Jose MD Specialist Cardiology 02/11/23 Fabien Burgos NP Specialist Cardiology 02/11/23 Angelica Price MD [address] [place] [address] Specialist Cardiology 03/11/23 documented as of this encounter
--- OUTSIDE RECORDS SUMMARY | 2024-06-24 09:45 | XMS_ITS | Encounter Summary ---
Author Organization [facility] Address [address] [place] [address] Care Team Providers Care Radio Television Technical Director Name Role Phone Gael Coffman MD Primary Care Provider Unavail able Aram Modi MD Primary Care Provider Yanet lopez [facility] Pcp Primary Care Provider UnavailRavinder Wallace MD Unavailable [phone] Fabien Burgos NP Unavailable [phone] Aram Modi MD Primary Care Provider Angelica Cardozo MD Unavailable [phone] Encounter Details Date Type Department Care Team Description 08/20/2016 SCAN Medical Records [address] [place] [address] Abstract, Provider Social History Tobacco Use Types [...] Date/Time Associated Diagnosis Comments OUTSIDE LAB Routine 08/14/2016 documented in this encounter Results * OUTSIDE LAB (08/14/2016) Provider Abstract LAB documented in this encounter Visit Diagnoses Not on filedocumented in this encounter Care Teams Radio Television Technical Director Relationship Specialty Start Date End Date Gael Coffman MD PCP - General 06/10/01 04/21/17 Aram Modi MD PCP - General Internal Medicine 04/22/17 09/10/20 [facility], Pcp PCP - General Internal Medicine 09/11/20 02/17/23 Aram Modi MD PCP - General Internal Medicine 02/18/23 Ravinder Jose MD Specialist Cardiology 02/11/23 Fabien Burgos NP Specialist Cardiology 02/11/23 Angelica Price MD [address] [place] [address] Specialist Cardiology 03/11/23 documented as of this encounter
--- OUTSIDE RECORDS SUMMARY | 2024-06-24 09:45 | XMS_ITS | Encounter Summary ---
Author Organization [facility] Address [address] [place] [address] Care Team Providers Care Follow Up Manager Name Role Phone Aram Modi MD Primary Care Provider Yanet Gilmore, Pcp Primary Care Provider [facility] Ravinder Salvador MD Unavailable [phone] Fabien Burgos NP Unavailable [phone] Aram Modi MD Primary Care Provider Angelica Cardozo MD Unavailable [phone] Encounter Details Date Type Department Care Team Description 06/28/2019 Senior Production Supervisor Report Medical Records [address] [place] [address] Ronaldo Thakur, PA-C Social History Tobacco Use Types Packs/Day Years [...] on filedocumented in this encounter Care Teams Follow Up Manager Relationship Specialty Start Date End Date Aram Modi MD PCP - General Internal Medicine 04/22/17 09/10/20 [facility], Pcp PCP - General Internal Medicine 09/11/20 02/17/23 Aram Modi MD PCP - General Internal Medicine 02/18/23 Ravinder Jose MD Specialist Cardiology 02/11/23 Fabien Burgos NP Specialist Cardiology 02/11/23 Angelica Price MD [address] [address] Specialist Cardiology 03/11/23 documented as of this encounter
--- OUTSIDE RECORDS SUMMARY | 2024-06-24 09:46 | XMS_ITS | Encounter Summary ---
Author Organization [facility] Address [address] [place] [address] Care Team Providers Care Road Machinery Inspector Name Role Phone Gael Coffman MD Primary Care Provider Unavail able Aram Modi MD Primary Care Provider Yanet Gilmore Pcp Primary Care Provider UnavailRavinder Wallace MD Unavailable [phone] Fabien Burgos NP Unavailable [phone] Aram Modi MD Primary Care Provider Angelica Cardozo MD Unavailable [phone] Encounter Details Date Type Department Care Team Description 06/30/2015 [facility] Medical Records [address] [place] [address] Abstract, Provider Social History Tobacco Use Types [...] on filedocumented in this encounter Care Teams Road Machinery Inspector Relationship Specialty Start Date End Date Gael Coffman MD PCP - General 06/10/01 04/21/17 Aram Modi MD PCP - General Internal Medicine 04/22/17 09/10/20 [facility] Pcp PCP - General Internal Medicine 09/11/20 02/17/23 Aram Modi MD PCP - General Internal Medicine 02/18/23 Ravinder Jose MD Specialist Cardiology 02/11/23 Fabien Burgos NP Specialist Cardiology 02/11/23 Angelica Price MD [address] [place] [address] Specialist Cardiology 03/11/23 documented as of this encounter
--- OUTSIDE RECORDS SUMMARY | 2024-06-24 09:46 | XMS_ITS | Encounter Summary ---
Author Organization [facility] Address [address] [place] [address] Care Team Providers Care Radiology Assistant Name Role Phone Gael Coffman MD Primary Care Provider Unavail able Aram Modi MD Primary Care Provider Yanet Gilmore Pcp Primary Care Provider UnavailRavinder Wallace MD Unavailable [phone] Fabien Burgos NP Unavailable [phone] Aram Modi MD Primary Care Provider Angelica Cardozo MD Unavailable [phone] Encounter Details Date Type Department Care Team Description 06/24/2012 Pt. Non Urgent Medical Question Adult Medicine B - [place] [address] [place] [address] Gael Coffman MD Social History Tobacco Use [...] as of this encounter Progress Notes * Minoo Decker L.P.N. - 06/24/2012 9:31 AM ESTFrom: DAHIANA VELEZ To: Gael Coffman MD Sent: FriJun 24, 2012 8:54 AM Subject: RX MEDICATION / TEST REPORTS Hi Dr. Coffman. For approx. 3 weeks now I have stopped taking the second dose of lisinopril. The two weeks after cessation, my B/P remained within acceptable tolerances. However, for this last week my B/P is runninghigh with an average of 148/88. There have been spikes to 176/ 90. Also, I seem to have a little fluid retention. Please advise if I should resume taking the second lisinopril tablet. The heart monitor testing was done approx. one and a half weeks ago. Do you have any results of that test, as well as the recent blood test that you issued a stat report for. Any information you can advise in your busy day would be greatly appreciated. Also, should I be scheduling a new appointment? Thanks, Shan Velez documented in this encounter Plan of Treatment Not on file documented as of this encounter Visit Diagnoses Not on filedocumented in this encounter Care Teams Radiology Assistant Relationship Specialty Start Date End Date Gael Coffman MD PCP - General 06/10/01 04/21/17 Aram Modi MD PCP - General Internal Medicine 04/22/17 09/10/20 [facility] [place] - [place] Internal Medicine 09/11/20 02/17/23 Aram Modi MD PCP - General Internal Medicine 02/18/23 Ravinder Jose MD Specialist Cardiology 02/11/23 Fabien Burgos NP Specialist Cardiology 02/11/23 Angelica Price MD [address] [address] Specialist Cardiology 03/11/23 documented as of this encounter
--- OUTSIDE RECORDS SUMMARY | 2024-06-24 09:46 | XMS_ITS | Encounter Summary ---
Author Organization [facility] Address [address] [place] [address] Care Team Providers Care Binder Cutter Hand Name Role Phone Gael Coffman MD Primary Care Provider Unavail able Aram Modi MD Primary Care Provider Yanet Gilmore Pcp Primary Care Provider UnavailRavinder Wallace MD Unavailable [phone] Fabien Burgos NP Unavailable [phone] Aram Modi MD Primary Care Provider Angelica Cardozo MD Unavailable Encounter Details Date Type Department Care Team Description 11/08/2015 Pt. Non Urgent Medical Question Rheumatology - [place] [address] [place] [address] Simon Garcia MD Social History Tobacco Use [...] as of this encounter Progress Notes * Trupti Simon L.P.N. - 11/09/2015 10:25 AM EDT Message left for patient to return my call. * Trupti Alfred Eng. - 11/09/2015 8:10 AM EDTFrom: Cy Velez To: Simon Garcia MD Sent: 11/08/2015 8:35 PM EDT Subject: Prednisone Dear Dr. Garcia, I fully realize that you are gradually decreasing this med for various reasons. I am now on 7.5 MGsdaily. However, if at all possible please advise if I can decrease again. I am a complete mess. Not only are my ankles swollen, but now my whole feet. If I don't put on shoes early each morning I have trouble putting on anything but sneakers. My stomach is swollen, my friends say my face and now even my hands feel puffy. Further, I seem to be out of breath as well. Please advise what I can do. Thank You documented in this encounter Plan of Treatment Not on file documented as of this encounter Visit Diagnoses Not on filedocumented in this encounter Care Teams Binder Cutter Hand Relationship Specialty Start Date End Date Gael Coffman MD PCP - General 06/10/01 04/21/17 Aram Modi MD PCP - General Internal Medicine 04/22/17 09/10/20 [facility], Pcp PCP - General Internal Medicine 09/11/20 02/17/23 Aram Modi MD PCP - General Internal Medicine 02/18/23 Ravinder Jose MD Specialist Cardiology 02/11/23 Fabien Burgos NP Specialist Cardiology 02/11/23 Angelica Price MD [address] [place] [address] Specialist Cardiology 03/11/23 documented as of this encounter
--- OUTSIDE RECORDS SUMMARY | 2024-06-24 09:46 | XMS_ITS | Encounter Summary ---
Author Organization [facility] Address [address] [place] [address] Care Team Providers Care Nursery Hand Name Role Phone Gael Coffman MD Primary Care Provider Unavail able Aram Modi MD Primary Care Provider Yanet lopez [facility] Pcp Primary Care Provider UnavailRavinder Wallace MD Unavailable [phone] Fabien Burgos NP Unavailable [phone] Aram Modi MD Primary Care Provider Angelica Cardozo MD Unavailable [phone] Encounter Details Date Type Department Care Team Description 08/16/2016 SCAN Medical Records [address] [place] [address] Abstract, Provider Social History Tobacco Use Types [...] Name Priority Date/Time Associated Diagnosis Comments OUTSIDE CT Routine 08/14/2016 OUTSIDE PLAIN FILM Routine 08/14/2016 OUTSIDE LAB Routine 08/14/2016 documented in this encounter Results * OUTSIDE CT (08/14/2016) Provider Abstract RADIOLOGY * OUTSIDE PLAIN FILM (08/14/2016) Provider Abstract RADIOLOGY * OUTSIDE LAB (08/14/2016) Provider Abstract LAB documented in this encounter Visit Diagnoses Not on filedocumented in this encounter Care Teams Nursery Hand Relationship Specialty Start Date End Date Gael Coffman MD PCP - General 06/10/01 04/21/17 Aram Modi MD PCP - General Internal Medicine 04/22/17 09/10/20 [facility] PCP - General Internal Medicine 09/11/20 02/17/23 Aram Modi MD PCP - General Internal Medicine 02/18/23 Ravinder Jose MD Specialist Cardiology 02/11/23 Fabien Burgos NP Specialist Cardiology 02/11/23 Angelica Price MD [address] [place] [address] Specialist Cardiology 03/11/23 documented as of this encounter
--- OUTSIDE RECORDS SUMMARY | 2024-06-24 09:46 | XMS_ITS | Encounter Summary ---
Author Organization [facility] Address [address] [place] [address] Care Team Providers Care Corn Sheller Operator Name Role Phone Aram Modi MD Primary Care Provider Yanet Gilmore Pcp Primary Care Provider [facility] Ravinder Salvador MD Unavailable Fabien Burgos NP Unavailable [phone] Aram Modi MD Primary Care Provider Unava Angelica Russell MD Unavailable [phone] Encounter Details Date Type Department Care Team Description 03/22/2020 Orders Only Medicine/Pediatrics - [address] [address] Aram Modi MD Essential hypertension (Primary Dx) Social History Tobacco Use Types [...] have Coronavirus / COVID-19? No / Unsure 03/22/2020 11:32 AM EST documented as of this encounter Plan of Treatment Not on file documented as of this encounter Results * (ABNORMAL) BASIC METABOLIC PANEL (07/03/2020 10:55 AM EST) GLUCOSE 102(H) 70 - 100 mg/dL 07/03/2020 2:29 PM EST [facility] Comment:Reference range appl icable to fasting specimens only Blood Urea Nitrogen 25 5 - 25 mg/dL 07/03/2020 2:29 PM EST [facility] CREAT 1.48(H) 0.7 - 1.3 mg/dL 07/03/2020 2:29 PM EST [facility] GLOMERULAR FILTRATION RATE 46 07/03/2020 2:29 PM EST [facility] Comment: If patient is -Tristanian, multiply result by 1.21 Chronic Kidney Disease: < 60 ml/min/1.73 square meters Kidney Failure: < 15 ml/min/1.73 square meters NA 142 135 - 145 mEq/L 07/03/2020 2:29 PM EST [facility] K 4.7 3.5 - 5.5 mmol/L 07/03/2020 2:29 PM EST [facility] CL 107 96 - 110 mmol/L 07/03/2020 2:29 PM EST [facility] CARBON DIOXIDE (CO2) 29 21 - 32 mmol/L 07/03/2020 2:29 PM EST [facility] ANION GAP 6 3 - 11 07/03/2020 2:29 PM EST [facility] CALCIUM 9.3 8.5 - 10.5 mg/dL 07/03/2020 2:29 PM EST [facility] 07/03/2020 10:5 5 AM EST 07/03/2020 10:56 AM EST Aram Modi MD LAB [facility] documented in this encounter Visit Diagnoses Diagnosis Essential hypertension- Primary Unspecified essential hypertension documented in this encounter Care Teams Corn Sheller Operator Relationship Specialty Start Date End Date Aram Modi MD PCP - General Internal Medicine 04/22/17 09/10/20 [facility], Pcp PCP - General Internal Medicine 09/11/20 02/17/23 Aram Modi MD PCP - General Internal Medicine 02/18/23 Ravinder Jose MD Specialist Cardiology 02/11/23 Fabien Burgos NP Specialist Cardiology 02/11/23 Angelica Price MD [address] [address] Specialist Cardiology 03/11/23 documented as of this encounter
--- OUTSIDE RECORDS SUMMARY | 2024-06-24 09:46 | XMS_ITS | Encounter Summary ---
Author Organization [facility] Address [address] [place] [address] Care Team Providers Care Electronic Systems Technician Name Role Phone Gael Coffman MD Primary Care Provider Unavail able Aram Modi MD Primary Care Provider Yanet Gilmore Pcp Primary Care Provider UnavailRavinder Wallace MD Unavailable [phone] Fabien Burgos NP Unavailable [phone] Arma Modi MD Primary Care Provider Angelica Cardozo MD Unavailable [phone] Encounter Details Date Type Department Care Team Description 01/20/2016 Pt. Non Urgent Medical Question Rheumatology - [place] [address] [place] [address] Simon Garcia MD Social History Tobacco Use [...] Progress Notes * Trupti Simon L.P.N. - 01/23/2016 8:16 AM EDTFrom: Cy Barrera Rosie To: Simon Garcia MD Sent: 01/20/2016 7:36 PM EDT Subject: Steroids Last appointment you advised to try and reduce my meds to one 2.5mg Reducing to one had some negative results. The pain in my arms and legs returned in force. I am back to two pills per day and this regiment is borderline, but bearable. Unfortunately, the results were not as hoped for documented in this encounter Plan of Treatment Not on file documented as of this encounter Visit Diagnoses Not on filedocumented in this encounter Care Teams Electronic Systems Technician Relationship Specialty Start Date End Date Gael Coffman MD PCP - General 06/10/01 04/21/17 Aram Modi MD PCP - General Internal Medicine 04/22/17 09/10/20 [facility] Pcp PCP - General Internal Medicine 09/11/20 02/17/23 Aram Modi MD PCP - General Internal Medicine 02/18/23 Ravinder Jose MD Specialist Cardiology 02/11/23 Fabien Burgos NP Specialist Cardiology 02/11/23 Angelica Price MD [address] [place] [address] Specialist Cardiology 03/11/23 documented as of this encounter
--- OUTSIDE RECORDS SUMMARY | 2024-06-24 09:46 | XMS_ITS | Encounter Summary ---
Author Organization [facility] Address [address] [place] [address] Care Team Providers Care Purification Director Name Role Phone Aram Modi MD Primary Care Provider Unakuldeep Gilmore Pcp Primary Care Provider [facility] Ravinder Salvador MD Unavailable [phone] Fabine Burgos NP Unavailable [phone] Aram Modi MD Primary Care Provider Unava Angelica Russell MD Unavailable [phone] Encounter Details Date Type Department Care Team Description 09/01/2018 Pt. Non Urgent Medic al Question Medicine/Pediatrics - [address] [address] Aram Modi MD Social History Tobacco Use Types Packs/Day [...] as of this encounter Progress Notes * Supriya Rasheed L.P.N. - 09/02/2018 9:20 AM EDTFrom: Cy Barrera Rosie To: Aram Modi MD Sent: 09/01/2018 5:42 PM EDT Subject: Blood Tests Hi Dr. Schepart, Sorry to bother you, but Dr Marshall sent me for a blood test. The results have been entered on My Chart. Unfortunately, With no explanation. I wonder if you or she can advise me if the results are good or bad. Thanks for any help. documented in this encounter Plan of Treatment Not on file documented as of this encounter Visit Diagnoses Not on filedocumented in this encounter Care Teams Purification Director Relationship Specialty Start Date End Date Aram Moid MD PCP - General Internal Medicine 04/22/17 09/10/20 [facility] PCP - General Internal Medicine 09/11/20 02/17/23 Aram Modi MD PCP - General Internal Medicine 02/18/23 Ravinder Jose MD Specialist Cardiology 02/11/23 Fabien Burgos NP Specialist Cardiology 02/11/23 Angelica Price MD [address] [place] [address] Specialist Cardiology 03/11/23 documented as of this encounter
--- OUTSIDE RECORDS SUMMARY | 2024-06-24 09:46 | XMS_ITS | Encounter Summary ---
Author Organization [facility] Address [address] [place] [address] Care Team Providers Care Internal Consultant Name Role Phone Gael Coffman MD Primary Care Provider Unavail able Aram Modi MD Primary Care Provider Luis E Parker Primary Care Provider UnavailRavinder Wallace MD Unavailable [phone] Fabien Burgos NP Unavailable [phone] Aram Modi MD Primary Care Provider Angelica Cardozo MD Unavailable [phone] Encounter Details Date Type Department Care Team Description 10/29/2016 Wellness Visit Medical Records [address] [place] [address] Abstract, Provider Social History Tobacco Use Types [...] on filedocumented in this encounter Care Teams Internal Consultant Relationship Specialty Start Date End Date Gael Coffman MD PCP - General 06/10/01 04/21/17 Aram Modi MD PCP - General Internal Medicine 04/22/17 09/10/20 [facility] Pcp PCP - General Internal Medicine 09/11/20 02/17/23 Aram Modi MD PCP - General Internal Medicine 02/18/23 Ravinder Jose MD Specialist Cardiology 02/11/23 Fabien Burgos NP Specialist Cardiology 02/11/23 Angelica Price MD [address] [place] [address] Specialist Cardiology 03/11/23 documented as of this encounter
--- OUTSIDE RECORDS SUMMARY | 2024-06-24 09:46 | XMS_ITS | Encounter Summary ---
Author Organization [facility] Address [address] [place] [address] Care Team Providers Care Fisher Trawl Line Name Role Phone Gael Coffman MD Primary Care Provider Unavail able Aram Modi MD Primary Care Provider Yanet Gilmore Pcp Primary Care Provider UnavailRavinder Wallace MD Unavailable [phone] Fabien Burgos NP Unavailable [phone] Aram Modi MD Primary Care Provider Angelica Cardozo MD Unavailable [phone] Encounter Details Date Type Department Care Team Description 09/07/2010 Carbon Rod Inserter Report Medical Records [address] [place] [address] Ricky Douglas Social History Tobacco Use Types Packs/Day Years Used Date Smoking Tobacco: Former Comments:quit 30 yrs ago- sm [...] on filedocumented in this encounter Care Teams Fisher Trawl Line Relationship Specialty Start Date End Date Gael Coffman MD PCP - General 06/10/01 04/21/17 Aram Modi MD PCP - General Internal Medicine 04/22/17 09/10/20 [facility], Pcp PCP - General Internal Medicine 09/11/20 02/17/23 Aram Modi MD PCP - General Internal Medicine 02/18/23 Ravinder Jose MD Specialist Cardiology 02/11/23 Fabien Burgos NP Specialist Cardiology 02/11/23 Angelica Price MD [address] [place] [address] Specialist Cardiology 03/11/23 documented as of this encounter
--- OUTSIDE RECORDS SUMMARY | 2024-06-24 09:46 | XMS_ITS | Encounter Summary ---
Author Organization [facility] Address [address] [place] [address] Care Team Providers Care Slip Presser Name Role Phone Aram Modi MD Primary Care Provider Yanet Gilmore, Pcp Primary Care Provider [facility] Ravinder Salvador MD Unavailable [phone] Fabien Burgos NP Unavailable [phone] Aram Modi MD Primary Care Provider Citlalyor Angelica Russell MD Unavailable [phone] Encounter Details Date Type Department Care Team Description 12/22/2019 Telephone [facility] - [address] [address] Simon Garcia MD Social History Tobacco Use [...] on filedocumented in this encounter Care Teams Slip Presser Relationship Specialty Start Date End Date Aram Modi MD PCP - General Internal Medicine 04/22/17 09/10/20 [facility], Pcp PCP - General Internal Medicine 09/11/20 02/17/23 Aram Modi MD PCP - General Internal Medicine 02/18/23 Ravinder Jose MD Specialist Cardiology 02/11/23 Fabien Burgos NP Specialist Cardiology 02/11/23 Angelica Price MD [address] [facility] [address] [place] [address] Specialist Cardiology 03/11/23 documented as of this encounter
--- OUTSIDE RECORDS SUMMARY | 2024-06-24 09:46 | XMS_ITS | Encounter Summary ---
Author Organization [facility] Address [address] [place] [address] Care Team Providers Care Dietetic Assistant Name Role Phone Aram Modi MD Primary Care Provider Yanet Gilmore, Pcp Primary Care Provider [facility] Ravinder Salvador MD Unavailable [phone] Fabien Burgos NP Unavailable [phone] Aram Modi MD Primary Care Provider Angelica Cardozo MD Unavailable [phone] Encounter Details Date Type Department Care Team Description 09/25/2018 Price Lister Report Medical Records [address] [place] [address] Akira Brown MD Social History Tobacco Use Types Packs/Day [...] on filedocumented in this encounter Care Teams Dietetic Assistant Relationship Specialty Start Date End Date Aram Modi MD PCP - General Internal Medicine 04/22/17 09/10/20 [facility] [place], Pcp PCP - General Internal Medicine 09/11/20 02/17/23 Aram Modi MD PCP - General Internal Medicine 02/18/23 Ravinder Jose MD Specialist Cardiology 02/11/23 Fabien Burgos NP Specialist Cardiology 02/11/23 Angelica Price MD [address] [address] Specialist Cardiology 03/11/23 documented as of this encounter
--- OUTSIDE RECORDS SUMMARY | 2024-06-24 09:46 | XMS_ITS | Encounter Summary ---
Author Organization [facility] Address [address] [place] [address] Care Team Providers Care Mushroom Laborer Name Role Phone Aram Modi MD Primary Care Provider Unakuldeep Gilmore Pcp Primary Care Provider [facility] Ravinder Salvador MD Unavailable [phone] Fabien Burgos NP Unavailable Aram Modi MD Primary Care Provider Unava Angelica Russell MD Unavailable [phone] Encounter Details Date Type Department Care Team Description 07/29/2019 Pt. Non Urgent Medic al Question Medicine/Pediatrics - [address] [address] Aram Modi MD Social History Tobacco Use [...] as of this encounter Progress Notes * Jenifer Zarate M.A. - 07/29/2019 10:37 AM EDTFrom: Cy Barrera Rosie To: Aram Modi MD Sent: 07/29/2019 9:10 AM EDT Subject: COMMON COLD Hi Dr. Modi, Last March I saw Jeronimo Rothman for just a follow up visit. At that time I had a cold and Ace prescribed a little gold wonder pill that worked well. Unfortunately, my granddaughter once again gave me a cold. I would like to ask that you send a script into the [facility] in my file for this med. It is IC BENZONATATE 100 MG CAPSULE. Hopefully, this will again stop my coughing. Thanks, Cy Velez documented in this encounter Plan of Treatment Not on file documented as of this encounter Visit Diagnoses Not on filedocumented in this encounter Care Teams Mushroom Laborer Relationship Specialty Start Date End Date Aram Modi MD PCP - General Internal Medicine 04/22/17 09/10/20 [facility] PCP - General Internal Medicine 09/11/20 02/17/23 Aram Modi MD PCP - General Internal Medicine 02/18/23 Ravinder Jose MD Specialist Cardiology 02/11/23 Fabien Burgos NP Specialist Cardiology 02/11/23 Angelica Price MD [address] [place] [address] Specialist Cardiology 03/11/23 documented as of this encounter
--- OUTSIDE RECORDS SUMMARY | 2024-06-24 09:46 | XMS_ITS | Encounter Summary ---
Author Organization [facility] Address [address] [place] [address] Care Team Providers Care Wastewater Process Engineer Name Role Phone Aram Modi MD Primary Care Provider Unakuldeep Gilmore Pcp Primary Care Provider [facility] Ravinder Salvador MD Unavailable [phone] Fabien Burgos NP Unavailable [phone] Aram Modi MD Primary Care Provider Unava Angelica Russell MD Unavailable [phone] Encounter Details Date Type Department Care Team Description 12/23/2019 Pt. Non Urgent Medical Question Nephrology - [place] [address] [place] [address] Abhishek Haynes MD [address] [place] [id number] Social History Tobacco Use Types Packs/Day Years [...] encounter Miscellaneous Notes * Telephone Encounter - Neva Carrizales M.A. - 12/23/2019 9:[address] Haynes, Please advise. documented in this encounter Plan of Treatment Not on file documented as of this encounter Visit Diagnoses Not on filedocumented in this encounter Care Teams Wastewater Process Engineer Relationship Specialty Start Date End Date Aram Modi MD PCP - General Internal Medicine 04/22/17 09/10/20 [facility], Pcp PCP - General Internal Medicine 09/11/20 02/17/23 Aram Modi MD PCP - General Internal Medicine 02/18/23 Ravinder Jose MD Specialist Cardiology 02/11/23 Fabien Burgos NP Specialist Cardiology 02/11/23 Angelica Price MD [address] [place] [address] Specialist Cardiology 03/11/23 documented as of this encounter
--- OUTSIDE RECORDS SUMMARY | 2024-06-24 09:46 | XMS_ITS | Encounter Summary ---
Author Organization [facility] Address [address] [place] [address] Care Team Providers Care Pest Control Specialist Name Role Phone Gael Coffman MD Primary Care Provider Unavail able Aram Modi MD Primary Care Provider Yanet Gilmore Pcp Primary Care Provider UnavailRavinder Wallace MD Unavailable [phone] Fabien Burgos NP Unavailable [phone] Aram Modi MD Primary Care Provider Angelica Cardozo MD Unavailable [phone] Encounter Details Date Type Department Care Team Description 06/30/2015 [facility] Medical Records [address] [place] [address] Reilly Gaffney MD Social History Tobacco Use Types Packs/Day [...] on filedocumented in this encounter Care Teams Pest Control Specialist Relationship Specialty Start Date End Date Gael Coffman MD PCP - General 06/10/01 04/21/17 Aram Modi MD PCP - General Internal Medicine 04/22/17 09/10/20 [facility], Pcp PCP - General Internal Medicine 09/11/20 02/17/23 Aram Modi MD PCP - General Internal Medicine 02/18/23 Ravinder Jose MD Specialist Cardiology 02/11/23 Fabien Burgos NP Specialist Cardiology 02/11/23 Angelica Price MD [address] [place] [address] Specialist Cardiology 03/11/23 documented as of this encounter
--- OUTSIDE RECORDS SUMMARY | 2024-06-24 09:46 | XMS_ITS | Encounter Summary ---
Author Organization [facility] Address [address] [place] [address] Care Team Providers Care Accounts Supervisor Name Role Phone Gael Coffman MD Primary Care Provider Unavail able rAam Modi MD Primary Care Provider Yanet Gilmore Pcp Primary Care Provider UnavailRavinder Wallace MD Unavailable [phone] Fabien Burgos NP Unavailable [phone] Aram Modi MD Primary Care Provider Angelica Cardozo MD Unavailable [phone] Encounter Details Date Type Department Care Team Description 08/01/2016 Wellness Visit Medical Records [address] [place] [address] Gael Coffman MD Social History Tobacco Use [...] on filedocumented in this encounter Care Teams Accounts Supervisor Relationship Specialty Start Date End Date Gael Coffman MD PCP - General 06/10/01 04/21/17 Aram Modi MD PCP - General Internal Medicine 04/22/17 09/10/20 [facility], Pcp PCP - General Internal Medicine 09/11/20 02/17/23 Aram Modi MD PCP - General Internal Medicine 02/18/23 Ravinder Jose MD Specialist Cardiology 02/11/23 Fabien Burgos NP Specialist Cardiology 02/11/23 Angelica Price MD [address] [place] [address] Specialist Cardiology 03/11/23 documented as of this encounter
--- OUTSIDE RECORDS SUMMARY | 2024-06-24 09:46 | XMS_ITS | Encounter Summary ---
Author Organization [facility] Address [address] [place] [address] Care Team Providers Care Teaching Pastor Name Role Phone Gael Coffman MD Primary Care Provider Unavail able Aram Modi MD Primary Care Provider Yanet Gilmore Pcp Primary Care Provider UnavailRavinder Wallace MD Unavailable [phone] Fabien Burgos NP Unavailable [phone] Aram Modi MD Primary Care Provider Angelica Cardozo MD Unavailable [phone] Encounter Details Date Type Department Care Team Description 05/22/2015 County Adviser Report Medical Records [address] [place] [address] Reilly Gaffney MD Social History Tobacco Use [...] on filedocumented in this encounter Care Teams Teaching Pastor Relationship Specialty Start Date End Date Gael Coffman MD PCP - General 06/10/01 04/21/17 Aram Modi MD PCP - General Internal Medicine 04/22/17 09/10/20 [facility], Pcp PCP - General Internal Medicine 09/11/20 02/17/23 Aram Modi MD PCP - General Internal Medicine 02/18/23 Ravinder Jose MD Specialist Cardiology 02/11/23 Fabien Burgos NP Specialist Cardiology 02/11/23 Angelica Price MD [address] [place] [address] Specialist Cardiology 03/11/23 documented as of this encounter
--- OUTSIDE RECORDS SUMMARY | 2024-06-24 09:46 | XMS_ITS | Encounter Summary ---
Author Organization [facility] Address [address] [place] [address] Care Team Providers Care Infant Caregiver Name Role Phone Gael Coffman MD Primary Care Provider Unavail able Aram Modi MD Primary Care Provider Yanet Gilmore Pcp Primary Care Provider UnavailRavinder Wallace MD Unavailable [phone] Fabien Burgos NP Unavailable [phone] Aram Modi MD Primary Care Provider Angelica Cardozo MD Unavailable [phone] Encounter Details Date Type Department Care Team Description 11/16/2009 Color Buffer Report Medical Records [address] [place] [address] Scott Souza Social History Tobacco Use Types [...] on filedocumented in this encounter Care Teams Infant Caregiver Relationship Specialty Start Date End Date Gael Coffman MD PCP - General 06/10/01 04/21/17 Aram Modi MD PCP - General Internal Medicine 04/22/17 09/10/20 [facility], Pcp PCP - General Internal Medicine 09/11/20 02/17/23 Aram Modi MD PCP - General Internal Medicine 02/18/23 Ravinder Jose MD Specialist Cardiology 02/11/23 Fabien Burgos NP Specialist Cardiology 02/11/23 Angelica Price MD [address] [place] [address] Specialist Cardiology 03/11/23 documented as of this encounter
--- OUTSIDE RECORDS SUMMARY | 2024-06-24 09:46 | XMS_ITS | Encounter Summary ---
Author Organization [facility] Address [address] [place] [address] Care Team Providers Care Boat Oar Maker Name Role Phone Gael Coffman MD Primary Care Provider Unavail able Aram Modi MD Primary Care Provider Yanet Gilmore Pcp Primary Care Provider UnavailRavinder Wallace MD Unavailable [phone] Fabien Burgos NP Unavailable [phone] Aram Modi MD Primary Care Provider Angelica Cardozo MD Unavailable [phone] Reason for Visit * Reason Onset Date Comments Hypertension Clinic Orders 10/30/2016 Order s PENDING for review and signing. Encounter Details Date Type Department Care Team Description 10/30/2016 Telephone Hypertension - [place] [address] [place] [address] Felicitas Love, Pharm.D Hypertension Clinic Orders (Orders PENDING for review and signing.) Social History Tobacco Use Types Packs/Day Years [...] encounter Miscellaneous Notes * Telephone Encounter - Gael Coffman MD - 10/30/2016 12:10 PM EDT I updated the chart-looks like he just had a 90 day script filled-which will now be only 45 days-will send new script out when it is needed * Telephone Encounter - Kathi Mackenzie.D - 10/30/2016 11:57 AM EDT Cy Velez was seen and evaluated today at the Hypertension Clinic. I have determined that he is at his blood pressure goal of SBP <140 and DBP < 90. My plan for Mr. Velez is as follows: Refill his eplerenone 50mg BID (was previously written brand name medically necessary but he has been tolerating generic) BMP (Friday's labs were during illness and he has pneumonia and fever) Please sign the pended order(s) if you are in agreement, and route this encounter back to sender. A full report of the patient's visit can be found in the notes section of chart review. Thank you, Felicitas Love, Pharm.D [id number] Hypertension Clinic Friday - Friday - Friday documented in this encounter Plan of Treatment Not on file documented as of this encounter Results * (ABNORMAL) BASIC METABOLIC PANEL (11/20/2016 11:35 AM EDT) [facility] GLUCOSE 106(H) 70 - 100 mg/dL 11/20/2016 3:32 PM T [facility] Comment: Reference range applicable to fasting specimens only Based on recommendations from the ADA and AACE, the fasting glucose reference range has been changed to 70-100 mg/dL. ??This change is effective October 02, 2009 BUN 14 5 - 25 mg/dL 11/20/2016 3:32 PM T [facility] CREAT 1.1 0.7 - 1.5 mg/dL 11/20/2016 3:32 PM [facility] GFR > 60 >60 11/20/2016 3:32 PM EDT [facility] Comment: If patient is -[place]rain[place], multiply result by 1.21 Chronic Kidney Disease: < 60 ml/min/1.73 square meters Kidney Failure: < 15 ml/min/1.73 square meters Sodium 144 133 - 145 mEq/L 11/20/2016 3:32 PM EDT [facility] Potassium 4.2 3.5 - 5.5 mEq/L 11/20/2016 3:32 PM EDT [facility] Chloride 106 96 - 108 mEq/L 11/20/2016 3:32 PM EDT [facility] CO2 27.5 21.0 - 32.0 mEq/L 11/20/2016 3:32 PM EDT [facility] CALCIUM 9.0 8.5 - 10.5 mg/dL 11/20/2016 3:32 PM EDT [facility] 11/20/2016 11:3 5 AM EDT 11/20/2016 11:35 AM EDT Gael Coffman MD LAB Performing Organization Address City/State/[facility] Co de Phone Number [facility] [address] [facility] documented in this encounter Visit Diagnoses Diagnosis Essential hypertension- Primary Unspecified essential hypertension documented in this encounter Care Teams Boat Oar Maker Relationship Specialty Start Date End Date Gael Coffman MD PCP - General 06/10/01 04/21/17 Aram Modi MD PCP - General Internal Medicine 04/22/17 09/10/20 [facility] PCP - General Internal Medicine 09/11/20 02/17/23 Aram Modi MD PCP - General Internal Medicine 02/18/23 Ravinder Jose MD Specialist Cardiology 02/11/23 Fabien Burgos NP Specialist Cardiology 02/11/23 Angelica Price MD [address] [facility] [address] [place] [address] Specialist Cardiology 03/11/23 documented as of this encounter
--- OUTSIDE RECORDS SUMMARY | 2024-06-24 09:46 | XMS_ITS | Encounter Summary ---
Author Organization [facility] Address [address] [place] [address] Care Team Providers Care Field Administrative Assistant Name Role Phone Gael Coffman MD Primary Care Provider Unavail able Aram Modi MD Primary Care Provider Yanet Gilmore Pcp Primary Care Provider UnavailRavinder Wallace MD Unavailable [phone] Fabien Burgos NP Unavailable [phone] Aram Modi MD Primary Care Provider Angelica Cardozo MD Unavailable [phone] Encounter Details Date Type Department Care Team Description 10/24/2016 Home Health Care Case Manager Report Medical Records [address] [place] [address] Thony Powers, PA-C Social History Tobacco Use Types Packs/Day [...] filedocumented in this encounter Care Teams Field Administrative Assistant Relationship Specialty Start Date End Date Gael Coffman MD PCP - General 06/10/01 04/21/17 Aram Modi MD PCP - General Internal Medicine 04/22/17 09/10/20 [facility], Pcp PCP - General Internal Medicine 09/11/20 02/17/23 Aram Modi MD PCP - General Internal Medicine 02/18/23 Ravinder Jose MD Specialist Cardiology 02/11/23 Fabien Burgos NP Specialist Cardiology 02/11/23 Angelica Price MD [address] [place] [address] Specialist Cardiology 03/11/23 documented as of this encounter
--- OUTSIDE RECORDS SUMMARY | 2024-06-24 09:46 | XMS_ITS | Encounter Summary ---
Author Organization [facility] Address [address] [place] [address] Care Team Providers Care Data Assistant Name Role Phone Gael Coffman MD Primary Care Provider Unavail able Aram Modi MD Primary Care Provider Yanet Gilmore Pcp Primary Care Provider UnavailRavinder Wallace MD Unavailable [phone] Fabien Burgos NP Unavailable Aram Modi MD Primary Care Provider Angelica Cardozo MD Unavailable [phone] Encounter Details Date Type Department Care Team Description 09/27/2016 Superintendent Track Report Medical Records [address] [place] [address] Thony Powers, PA-C Social History Tobacco Use [...] on filedocumented in this encounter Care Teams Data Assistant Relationship Specialty Start Date End Date Gael Coffman MD PCP - General 06/10/01 04/21/17 Aram Modi MD PCP - General Internal Medicine 04/22/17 09/10/20 [facility], Pcp PCP - General Internal Medicine 09/11/20 02/17/23 Aram Modi MD PCP - General Internal Medicine 02/18/23 Ravinder Jose MD Specialist Cardiology 02/11/23 Fabien Burgos NP Specialist Cardiology 02/11/23 Angelica Price MD [address] [place] [address] Specialist Cardiology 03/11/23 documented as of this encounter
--- OUTSIDE RECORDS SUMMARY | 2024-06-24 09:46 | XMS_ITS | Encounter Summary ---
Author Organization [facility] Address [address] [place] [address] Care Team Providers Care Wafer Polisher Name Role Phone Gael Coffman MD Primary Care Provider Unavail able Aram Modi MD Primary Care Provider Yanet Gilmore Pcp Primary Care Provider UnavailRavinder Wallace MD Unavailable [phone] Fabien Burgos NP Unavailable [phone] Aram Modi MD Primary Care Provider Angelica Cardozo MD Unavailable [phone] Encounter Details Date Type Department Care Team Description 03/21/2016 Ticket Clerk Report Medical Records [address] [place] [address] Reilly Gaffney MD Social History Tobacco Use [...] on filedocumented in this encounter Care Teams Wafer Polisher Relationship Specialty Start Date End Date Gael Coffman MD PCP - General 06/10/01 04/21/17 Aram Modi MD PCP - General Internal Medicine 04/22/17 09/10/20 [facility], Pcp PCP - General Internal Medicine 09/11/20 02/17/23 Aram Modi MD PCP - General Internal Medicine 02/18/23 Ravinder Jose MD Specialist Cardiology 02/11/23 Fabien Burgos NP Specialist Cardiology 02/11/23 Angelica Price MD [address] [place] [address] Specialist Cardiology 03/11/23 documented as of this encounter
--- OUTSIDE RECORDS SUMMARY | 2024-06-24 09:46 | XMS_ITS | Encounter Summary ---
Author Organization [facility] Address [address] [place] [address] Care Team Providers Care Concrete Plant Laborer Name Role Phone Aram Modi MD Primary Care Provider Yanet Gilmore Pcp Primary Care Provider UnavailRavinder Wallace MD Unavailable [phone] Fabien Burgos NP Unavailable [phone] Aram Modi MD Primary Care Provider Angelica Cardozo MD Unavailable [phone] Encounter Details Date Type Department Care Team Description 12/24/2019 Brim Shaper Report Medical Records [address] [place] [address] Ricky Douglas Social History Tobacco Use Types [...] on filedocumented in this encounter Care Teams Concrete Plant Laborer Relationship Specialty Start Date End Date Aram Modi MD PCP - General Internal Medicine 04/22/17 09/10/20 [facility], Pcp PCP - General Internal Medicine 09/11/20 02/17/23 Aram Modi MD PCP - General Internal Medicine 02/18/23 Ravinder Jose MD Specialist Cardiology 02/11/23 Fabien Burgos NP Specialist Cardiology 02/11/23 Angelica Price MD [address] [address] Specialist Cardiology 03/11/23 documented as of this encounter
--- OUTSIDE RECORDS SUMMARY | 2024-06-24 09:46 | XMS_ITS | Encounter Summary ---
Author Organization [facility] Address [address] [place] [address] Care Team Providers Care Unemployment Inspector Name Role Phone Gael Coffman MD Primary Care Provider Unavail able Aram Modi MD Primary Care Provider Yanet Gilmore Pcp Primary Care Provider UnavailRavinder Wallace MD Unavailable [phone] Fabien Burgos NP Unavailable [phone] Aram Modi MD Primary Care Provider Angelica Cardozo MD Unavailable [phone] Encounter Details Date Type Department Care Team Description 07/06/2015 Brake Operator Helper Report Medical Records [address] [place] [address] Reilly Gaffney MD Social History Tobacco Use [...] on filedocumented in this encounter Care Teams Unemployment Inspector Relationship Specialty Start Date End Date Gael Coffman MD PCP - General 06/10/01 04/21/17 Aram Modi MD PCP - General Internal Medicine 04/22/17 09/10/20 [facility], Pcp PCP - General Internal Medicine 09/11/20 02/17/23 Aram Modi MD PCP - General Internal Medicine 02/18/23 Ravinder Jose MD Specialist Cardiology 02/11/23 Fabien Burgos NP Specialist Cardiology 02/11/23 Angelica Price MD [address] [place] [address] Specialist Cardiology 03/11/23 documented as of this encounter
--- OUTSIDE RECORDS SUMMARY | 2024-06-24 09:46 | XMS_ITS | Encounter Summary ---
Author Organization [facility] Address [address] [place] [address] Care Team Providers Care Neurology Physician Name Role Phone Gael Coffman MD Primary Care Provider Unavail able Aram Modi MD Primary Care Provider Yanet Gilmore Pcp Primary Care Provider UnavailRavinder Wallace MD Unavailable [phone] Fabien Burgos NP Unavailable [phone] Aram Modi MD Primary Care Provider Angelica Cardozo MD Unavailable [phone] Encounter Details Date Type Department Care Team Description 10/07/2016 Ambulatory Blood Pressure Monitoring Medical Records [address] [place] [address] Abstract, Provider Social History Tobacco Use Types [...] on filedocumented in this encounter Care Teams Neurology Physician Relationship Specialty Start Date End Date Gael Coffman MD PCP - General 06/10/01 04/21/17 Aram Modi MD PCP - General Internal Medicine 04/22/17 09/10/20 [facility], Pcp PCP - General Internal Medicine 09/11/20 02/17/23 Aram Modi MD PCP - General Internal Medicine 02/18/23 Ravinder Jose MD Specialist Cardiology 02/11/23 Fabien Burgos NP Specialist Cardiology 02/11/23 Angelica Price MD [address] [place] [address] Specialist Cardiology 03/11/23 documented as of this encounter
--- OUTSIDE RECORDS SUMMARY | 2024-06-24 09:46 | XMS_ITS | Encounter Summary ---
Author Organization [facility] Address [address] [place] [address] Care Team Providers Care Chief Procurement Officer Name Role Phone Gael Coffman MD Primary Care Provider Unavail able Aram Modi MD Primary Care Provider Yanet Gilmore Pcp Primary Care Provider UnavailRavinder Wallace MD Unavailable [phone] Fabien Burgos NP Unavailable [phone] Aram Modi MD Primary Care Provider Angelica Cardozo MD Unavailable [phone] Reason for Visit * Reason Onset Date Comments Advice 09/10/2015 Encounter Details Date Type Department Care Team Description 09/10/2015 Pt. Non Urgent Medical Question Adult Medicine - [place] [address] [place] [address] Gael Coffman MD Social History Tobacco Use [...] of this encounter Progress Notes * Vanessa Alanis L.P.N. - 09/11/2015 7:32 AM EDTFrom: Cy J Rosie To: Gael Coffman MD Sent: 09/10/2015 9:01 PM EDT Subject: Blood test Dr Coffman Based on my blood test which indicated low B12 Should I continue/reinstate my B12 injections. If yes Please put me back in the system. I will get them in [place] close to my home. Thank you, Shan Velez documented in this encounter Plan of Treatment Not on file documented as of this encounter Visit Diagnoses Not on filedocumented in this encounter Care Teams Chief Procurement Officer Relationship Specialty Start Date End Date Gael Coffman MD PCP - General 06/10/01 04/21/17 Aram Modi MD PCP - General Internal Medicine 04/22/17 09/10/20 [facility] PCP - General Internal Medicine 09/11/20 02/17/23 Aram Modi MD PCP - General Internal Medicine 02/18/23 Ravinder Jose MD Specialist Cardiology 02/11/23 Fabien Burgos NP Specialist Cardiology 02/11/23 Angelica Price MD [address] [place] [address] Specialist Cardiology 03/11/23 documented as of this encounter
--- OUTSIDE RECORDS SUMMARY | 2024-06-24 09:46 | XMS_ITS | Encounter Summary ---
Author Organization [facility] Address [address] [place] [address] Care Team Providers Care Operations Management Trainee Name Role Phone Aram Modi MD Primary Care Provider Yanet Gilmore Pcp Primary Care Provider [facility]availformerly [facility] Ravinder Salvador MD Unavailable [phone] Fabien Burgos NP Unavailable [phone] Aram Modi MD Primary Care Provider Unava Angelica Russell MD Unavailable [phone] Encounter Details Date Type Department Care Team Description 08/04/2018 Pt. Non Urgent Medical Question Medicine/Pediatrics - [address] [address] Aram Modi MD Chest pain, unspecified type (Primary Dx) Social History Tobacco Use Types [...] Progress Notes * Supriya Rasheed L.P.N. - 08/04/2018 12:00 PM EDTFrom: Cy Velez To: Aram Modi MD Sent: 08/04/2018 11:52 AM EDT Subject: Nuclear Imaging Test Good Spring Morning [place] is letting you get a little bit of sleep. I still remember those days and they were wonderful. I am writing with regard to my stress test. Evidently, I didn't pass. One reason I believe was there was a little glitch in the test probably similar to the one you received on my EKG. As I understand they/you will schedule me now for an MPI test. My question is, can I safety continue my daily exercise program or do I wait for the results of this new test? Thank you, Shan Velez documented in this encounter Plan of Treatment Not on file documented as of this encounter Visit Diagnoses Diagnosis Chest pain, unspecified type- Primary documented in this encounter Care Teams Operations Management Trainee Relationship Specialty Start Date End Date Aram Modi MD PCP - General Internal Medicine 04/22/17 09/10/20 [facility] PCP - General Internal Medicine 09/11/20 02/17/23 Aram Modi MD PCP - General Internal Medicine 02/18/23 Ravinder Jose MD Specialist Cardiology 02/11/23 Fabien Burgos NP Specialist Cardiology 02/11/23 Angelica Price MD [address] [address] Specialist Cardiology 03/11/23 documented as of this encounter
--- OUTSIDE RECORDS SUMMARY | 2024-06-24 09:46 | XMS_ITS | Encounter Summary ---
Author Organization [facility] Address [address] [place] [address] Care Team Providers Care Loan Collector Name Role Phone Gael Coffman MD Primary Care Provider Unavail able Aram Modi MD Primary Care Provider Yanet Gilmore Pcp Primary Care Provider UnavailRavinder Wallace MD Unavailable [phone] Fabien Burgos NP Unavailable [phone] Aram Modi MD Primary Care Provider Angelica Cardozo MD Unavailable [phone] Encounter Details Date Type Department Care Team Description 10/31/2016 Risk Consultant Report Medical Records [address] [place] [address] Thony Powers, PA-C Social History Tobacco Use [...] on filedocumented in this encounter Care Teams Loan Collector Relationship Specialty Start Date End Date Gael Coffman MD PCP - General 06/10/01 04/21/17 Aram Modi MD PCP - General Internal Medicine 04/22/17 09/10/20 [facility], Pcp PCP - General Internal Medicine 09/11/20 02/17/23 Aram Modi MD PCP - General Internal Medicine 02/18/23 Ravinder Jose MD Specialist Cardiology 02/11/23 Fabien Burgos NP Specialist Cardiology 02/11/23 Angelica Price MD [address] [place] [address] Specialist Cardiology 03/11/23 documented as of this encounter
--- OUTSIDE RECORDS SUMMARY | 2024-06-24 09:46 | XMS_ITS | Encounter Summary ---
Author Organization [facility] Address [address] [place] [address] Care Team Providers Care Rehabilitation Aide/Scheduler Name Role Phone Gael Coffman MD Primary Care Provider Unavail able Aram Modi MD Primary Care Provider Yanet Gilmore Pcp Primary Care Provider UnavailRavinder Wallace MD Unavailable [phone] Fabien Burgos NP Unavailable [phone] Aram Modi MD Primary Care Provider Angelica Cardozo MD Unavailable [phone] Reason for Visit * Reason Onset Date Comments lab test 05/27/2012 Encounter Details Date Type Department Care Team Description 05/27/2012 Pt. Non Urgent Medical Question Adult Medicine - [place] [address] [place] [address] Gael Coffman MD Social History Tobacco Use [...] this encounter Progress Notes * Minoo Decker L.P.NDaisy - 05/27/2012 1:19 PM ESTFrom: DAHIANA VELEZ To: Gael Coffman MD Sent: FriMay 27, 2012 1:15 PM Subject: Blood Test Results Hi Dr. oCffman, Was under the impression I would be contacted with blood test results. Also, have you received any test results on a possible UTI from [facility] in [place]. Holter monitor is scheduled for . Thank you for your help and any available information would be greatly appreciated. As I explained, I hope to be leaving for [place] this Friday. Dahiana Barbosa) documented in this encounter Plan of Treatment Not on file documented as of this encounter Visit Diagnoses Not on filedocumented in this encounter Care Teams Rehabilitation Aide/Scheduler Relationship Specialty Start Date End Date Gael Coffman MD PCP - General 06/10/01 04/21/17 Aram Modi MD PCP - General Internal Medicine 04/22/17 09/10/20 [facility] PCP - General Internal Medicine 09/11/20 02/17/23 Aram Modi MD PCP - General Internal Medicine 02/18/23 Ravinder Jose MD Specialist Cardiology 02/11/23 Fabien Burgos NP Specialist Cardiology 02/11/23 Angelica Price MD 300 [facility] [address] [place] [address] Specialist Cardiology 03/11/23 documented as of this encounter
--- OUTSIDE RECORDS SUMMARY | 2024-06-24 09:46 | XMS_ITS | Encounter Summary ---
Author Organization [facility] Address [address] [place] [address] Care Team Providers Care Certified Registered Nurse Practitioner Name Role Phone Aram Modi MD Primary Care Provider Yanet Gilmore, Pcp Primary Care Provider Unavailtri[facility] Ravinder Salvador MD Unavailable [phone] Fabien Burgos NP Unavailable [phone] Aram Modi MD Primary Care Provider Citlalyca Angelica Russell MD Unavailable [phone] Encounter Details Date Type Department Care Team Description 06/26/2018 [place] [facility] - [address] [id number] Aram Modi MD Social History Tobacco Use [...] on filedocumented in this encounter Care Teams Certified Registered Nurse Practitioner Relationship Specialty Start Date End Date Aram Modi MD PCP - General Internal Medicine 04/22/17 09/10/20 [facility], Pcp PCP - General Internal Medicine 09/11/20 02/17/23 Aram Modi MD PCP - General Internal Medicine 02/18/23 Ravinder Jose MD Specialist Cardiology 02/11/23 Fabien Burgos NP Specialist Cardiology 02/11/23 Angelica Price MD [address] [place] [address] Specialist Cardiology 03/11/23 documented as of this encounter
--- OUTSIDE RECORDS SUMMARY | 2024-06-24 09:46 | XMS_ITS | Encounter Summary ---
Author Organization [facility] Address [address] [place] [address] Care Team Providers Care Senior Data Modeler Name Role Phone Gael Coffman MD Primary Care Provider Unavail able Aram Modi MD Primary Care Provider Yanet Gilmore Pcp Primary Care Provider UnavailRavinder Wallace MD Unavailable [phone] Fabien Burgos NP Unavailable Aram Modi MD Primary Care Provider Angelica Cardozo MD Unavailable Encounter Details Date Type Department Care Team Description 12/26/2010 [facility] Medical Records [address] [place] [address] Sascha Keller MD Social History Tobacco Use Types Packs/Day [...] filedocumented in this encounter Care Teams Senior Data Modeler Relationship Specialty Start Date End Date Gael Coffman MD PCP - General 06/10/01 04/21/17 Aram Modi MD PCP - General Internal Medicine 04/22/17 09/10/20 [facility], Pcp PCP - General Internal Medicine 09/11/20 02/17/23 Aram Modi MD PCP - General Internal Medicine 02/18/23 Ravinder Jose MD Specialist Cardiology 02/11/23 Fabien Burgos NP Specialist Cardiology 02/11/23 Angelica Price MD [address] [place] [address] Specialist Cardiology 03/11/23 documented as of this encounter
--- OUTSIDE RECORDS SUMMARY | 2024-06-24 09:46 | XMS_ITS | Encounter Summary ---
Author Organization [facility] Address [address] [place] [address] Care Team Providers Care Inside Plant Supervisor Name Role Phone Aram Modi MD Primary Care Provider Yanet Gilmore, Pcp Primary Care Provider Unavailabl Ravinder Salvador MD Unavailable [phone] Fabien Burgos NP Unavailable [phone] Aram Modi MD Primary Care Provider Unava Angelica Russell MD Unavailable [phone] Encounter Details Date Type Department Care Team Description 07/16/2019 [employer] Vessels Inspector Report Medical Records [address] [place] [id number] [place], [place] [address] [place] [address] [id number] Social History Tobacco Use Types Packs/Day Years [...] filedocumented in this encounter Care Teams Inside Plant Supervisor Relationship Specialty Start Date End Date Aram Modi MD PCP - General Internal Medicine 04/22/17 09/10/20 [facility], Pcp PCP - General Internal Medicine 09/11/20 02/17/23 Aram Modi MD PCP - General Internal Medicine 02/18/23 Ravinder Jose MD Specialist Cardiology 02/11/23 Fabien Burgos NP Specialist Cardiology 02/11/23 Angelica Price MD [address] [place] [address] Specialist Cardiology 03/11/23 documented as of this encounter
--- OUTSIDE RECORDS SUMMARY | 2024-06-24 09:46 | XMS_ITS | Encounter Summary ---
Author Organization [facility] Address [address] [place] [address] Care Team Providers Care Genomics Scientist Name Role Phone Gael Coffman MD Primary Care Provider Unavail able Aram Modi MD Primary Care Provider Yanet Gilmore Pcp Primary Care Provider UnavailRavinder Wallace MD Unavailable [phone] Fabien Burgos NP Unavailable [phone] Aram Modi MD Primary Care Provider Angelica Cardozo MD Unavailable [phone] Encounter Details Date Type Department Care Team Description 05/18/2015 Wellness Visit Medical Records [address] [place] [address] Gael Coffman MD Social History Tobacco Use [...] on filedocumented in this encounter Care Teams Genomics Scientist Relationship Specialty Start Date End Date Gael Coffman MD PCP - General 06/10/01 04/21/17 Aram Modi MD PCP - General Internal Medicine 04/22/17 09/10/20 [facility], Pcp PCP - General Internal Medicine 09/11/20 02/17/23 Aram Modi MD PCP - General Internal Medicine 02/18/23 Ravinder Jose MD Specialist Cardiology 02/11/23 Fabien Burgos NP Specialist Cardiology 02/11/23 Angelica Price MD [address] [place] [address] Specialist Cardiology 03/11/23 documented as of this encounter
--- OUTSIDE RECORDS SUMMARY | 2024-06-24 09:47 | XMS_ITS | Encounter Summary ---
Author Organization [facility] Address [address] [place] [address] Care Team Providers Care Metal Fabricating Supervisor Name Role Phone Gael Coffman MD Primary Care Provider Unavail able Aram Modi MD Primary Care Provider Yanet Gilmore Pcp Primary Care Provider UnavailRavinder Wallace MD Unavailable [phone] Fabien Burgos NP Unavailable [phone] Aram Modi MD Primary Care Provider Angelica Cardozo MD Unavailable [phone] Encounter Details Date Type Department Care Team Description 12/19/2011 Release of Information Medical Records [address] [place] [id number] Abstract, Provider Social History Tobacco Use Types [...] on filedocumented in this encounter Care Teams Metal Fabricating Supervisor Relationship Specialty Start Date End Date Gael Coffman MD PCP - General 06/10/01 04/21/17 Aram Modi MD PCP - General Internal Medicine 04/22/17 09/10/20 [facility], Pcp PCP - General Internal Medicine 09/11/20 02/17/23 Aram Modi MD PCP - General Internal Medicine 02/18/23 Ravinder Jose MD Specialist Cardiology 02/11/23 Fabien Burgos NP Specialist Cardiology 02/11/23 Angelica Price MD [address] [place] [address] Specialist Cardiology 03/11/23 documented as of this encounter
--- OUTSIDE RECORDS SUMMARY | 2024-06-24 09:47 | XMS_ITS | Encounter Summary ---
Author Organization [facility] Address [address] [place] [address] Care Team Providers Care Patternmaker Plaster And Plastic Name Role Phone Aram Modi MD Primary Care Provider [phone] Reason for Visit * Reason Onset Date Comments medication 05/06/2024 Encounter Details Date Type Department Care Team (Late st Contact Info) Description 05/06/2024 Telephone [facility] Cardiology [address] [place] [address] Ravinder Jose MD [address] [place] [address],[address] [id number] medication Social History Tobacco Use Types Packs/Day [...] Hydrochlorothiazide 25 mg tab QD sent to [facility]. Pt informed. I left a detailed message [...] refill HCTZ 25 mg tab daily to [facility] for pt? * Damaris Hicks - 05/06/2024 [...] he should be on. Heis leaving to [place] next month and needs refills. Please call her back at [phone] documented in this encounter Plan of Treatment Upcoming Encounters Date Type Department Care Team (Late st Contact Info) Description 10/28/2024 9:10 AM EDT Office Visit [facility] Cardiology Associates [facility] [address] [facility] [address] Decker [address] [place] [address] Fabien Cleaning NP [address] [place] [address] Dr [address] [place] [address] 04/20/2025 8:00 AM EST Ancillary Procedure [facility] - [facility] [address] [facility] [address] [place] [address] documented as of this encounter Visit Diagnoses Not on filedocumented in this encounter Discontinued Medications Medication Sig Discontinue Reason Start Date End Da te furosemide (LASIX) 40 mg tablet Take 1 tablet (40 mg total) by mouth 1 (one) time each day. For 360 days Prescriber Discontinued 11/05/2023 05/06/2024 documented as of this encounter Care Teams Patternmaker Plaster And Plastic Relationship Specialty Start Date End Date Aram Modi MD [address] [address] PCP - General 04/22/17 documented as of this encounter
--- OUTSIDE RECORDS SUMMARY | 2024-06-24 09:47 | XMS_ITS | Encounter Summary ---
Author Organization [facility] Address [address] [place] [address] Care Team Providers Care Freight Representative Name Role Phone Ravinder Jose MD Unavailable [phone] Fabien Burgos NP Unavailable [phone] Aram Modi MD Primary Care Provider Angelica Cardozo MD Unavailable [phone] Encounter Details Date Type Department Care Team Description 02/16/2024 [facility] Medical Records [address] [place] [address] Abstract, Provider Social History Tobacco Use Types [...] Name Priority Date/Time Associated Diagnosis Comments OUTSIDE EKG Routine 02/16/2024 documented in this encounter Results * OUTSIDE EKG (02/16/2024) Provider Default CARDIOLOGY documented in this encounter Visit Diagnoses Not on filedocumented in this encounter Care Teams Freight Representative Relationship Specialty Start Date End Date Aram Modi MD PCP - General Internal Medicine 02/18/23 Ravinder Jose MD Specialist Cardiology 02/11/23 Fabien Burgos NP Specialist Cardiology 02/11/23 Angelica Price MD [address] [address] Specialist Cardiology 03/11/23 documented as of this encounter
--- OUTSIDE RECORDS SUMMARY | 2024-06-24 09:47 | XMS_ITS | Encounter Summary ---
Author Organization [facility] Address [address] [place] [address] Care Team Providers Care Hat Presser Name Role Phone Ravinder Jose MD Unavailable Fabien Burgos NP Unavailable [phone] Aram Modi MD Primary Care Provider Angelica Cardozo MD Unavailable [phone] Encounter Details Date Type Department Care Team Description 02/19/2023 [facility] Medical Records [address] [place] [phone] Abstract, Provider Social History Tobacco Use Types [...] Exposure Response Date Recorded In the last 10 days, have yo u been in contact with someone who was confirmed or suspected to have Coronavirus/COVID-19? No / Unsure 02/18/2023 8:32 AM EDT documented as of this encounter Plan of Treatment Not on file documented as of this encounter Procedures Procedure Name Priority Date/Time Associated Diagnosis Comments OUTSIDE LAB Routine 02/19/2023 documented in this encounter Results * OUTSIDE LAB (02/19/2023) Provider Default LAB documented in this encounter Visit Diagnoses Not on filedocumented in this encounter Care Teams Hat Presser Relationship Specialty Start Date End Date Aram Modi MD PCP - General Internal Medicine 02/18/23 Ravinder Jose MD Specialist Cardiology 02/11/23 Fabien Burgos NP Specialist Cardiology 02/11/23 Angelica Price MD [address] [place] [address] Specialist Cardiology 03/11/23 documented as of this encounter
--- OUTSIDE RECORDS SUMMARY | 2024-06-24 09:47 | XMS_ITS | Encounter Summary ---
Author Organization [facility] Address [address] [place] [address] Care Team Providers Care Health Promotion Specialist Name Role Phone Gael Coffman MD Primary Care Provider Unavail able Aram Modi MD Primary Care Provider Yanet Gilmore Pcp Primary Care Provider UnavailRavinder Wallace MD Unavailable [phone] Fabien Burgos NP Unavailable [phone] Aram Modi MD Primary Care Provider Angelica Cardozo MD Unavailable [phone] Encounter Details Date Type Department Care Team Description 05/17/2012 [facility] Medical Records [address] [place] [address] Dao Guy Social History Tobacco Use Types Packs/Day Years [...] on filedocumented in this encounter Care Teams Health Promotion Specialist Relationship Specialty Start Date End Date Gael Coffman MD PCP - General 06/10/01 04/21/17 Aram Modi MD PCP - General Internal Medicine 04/22/17 09/10/20 [facility], Pcp PCP - General Internal Medicine 09/11/20 02/17/23 Aram Modi MD PCP - General Internal Medicine 02/18/23 Ravnider Jose MD Specialist Cardiology 02/11/23 Fabien Burgos NP Specialist Cardiology 02/11/23 Angelica Price MD [address] [place] [address] Specialist Cardiology 03/11/23 documented as of this encounter
--- OUTSIDE RECORDS SUMMARY | 2024-06-24 09:47 | XMS_ITS | Encounter Summary ---
Author Organization [facility] Address [address] [place] [address] Care Team Providers Care Motors And Generators Inspector Name Role Phone Ravinder Jose MD Unavailable [phone] Fabien Burgos NP Unavailable [phone] Aram Modi MD Primary Care Provider Angelica Cardozo MD Unavailable [phone] Reason for Visit * Reason Onset Date Comments preop exam 03/16/2024 Encounter Details Date Type Department Care Team Description 03/16/2024 Telephone [facility]io [facility] [address] [place] [address] [address] [place] [phone] Ravinder Jose MD [address] [place] [address] [phone] preop exam Social History Tobacco Use Types Packs/Day Years [...] encounter Miscellaneous Notes * Telephone Encounter - Damaris Kurt - 03/16/2024 10:05 AM EDT Pre Op Request Type Of Surgery: Right total knee EKG Needed: yes Date Of Surgery: 06/28/24, please schedule the appointment for 6-8 weeks before surgery. Performing Doctor: Dr. Deng Name of Caller: Luis Garcia Orthopedic surgery Phone number: [phone] documented in this encounter Plan of Treatment Not on file documented as of this encounter Visit Diagnoses Not on filedocumented in this encounter Care Teams Motors And Generators Inspector Relationship Specialty Start Date End Date Aram Modi MD PCP - General Internal Medicine 02/18/23 Ravinder Jose MD Specialist Cardiology 02/11/23 Fabien Burgos NP Specialist Cardiology 02/11/23 Angelica Price MD [address] [address] Specialist Cardiology 03/11/23 documented as of this encounter
--- OUTSIDE RECORDS SUMMARY | 2024-06-24 09:47 | XMS_ITS | Encounter Summary ---
Author Organization [facility] Address [address] [place] [address] Care Team Providers Care Meter Record Clerk Name Role Phone Gael Coffman MD Primary Care Provider Unavail able Aram Modi MD Primary Care Provider Yanet Gilmore Pcp Primary Care Provider UnavailRavinder Wallace MD Unavailable [phone] Fabien Burgos NP Unavailable [phone] Aram Modi MD Primary Care Provider Angelica Cardozo MD Unavailable [phone] Encounter Details Date Type Department Care Team Description 09/18/2011 Friction Saw Operator Report Medical Records [address] [place] [address] Ricky Douglas Social History Tobacco Use Types [...] on filedocumented in this encounter Care Teams Meter Record Clerk Relationship Specialty Start Date End Date Gael Coffman MD PCP - General 06/10/01 04/21/17 Aram Modi MD PCP - General Internal Medicine 04/22/17 09/10/20 [facility], Pcp PCP - General Internal Medicine 09/11/20 02/17/23 Aram Modi MD PCP - General Internal Medicine 02/18/23 Ravinder Jose MD Specialist Cardiology 02/11/23 Fabien Burgos NP Specialist Cardiology 02/11/23 Angelica Price MD [address] [place] [address] Specialist Cardiology 03/11/23 documented as of this encounter
--- OUTSIDE RECORDS SUMMARY | 2024-06-24 09:47 | XMS_ITS | Encounter Summary ---
Author Organization [facility] Address [address] [place] [address] Care Team Providers Care Framing Specialist Name Role Phone Ravinder Jose MD Unavailable [phone] Fabien Burgos NP Unavailable [phone] Aram Modi MD Primary Care Provider Angelica Cardozo MD Unavailable [phone] Encounter Details Date Type Department Care Team Description 03/06/2023 SCAN Medical Records [address] [place] [address] Abstract, Provider Social History Tobacco Use Types [...] Name Priority Date/Time Associated Diagnosis Comments OUTSIDE PLAIN FILM Routine 03/06/2023 documented in this encounter Results * OUTSIDE PLAIN FILM (03/06/2023) Provider Default RADIOLOGY documented in this encounter Visit Diagnoses Not on filedocumented in this encounter Care Teams Framing Specialist Relationship Specialty Start Date End Date Aram Modi MD PCP - General Internal Medicine 02/18/23 Ravinder Jose MD Specialist Cardiology 02/11/23 Fabien Burgos NP Specialist Cardiology 02/11/23 Angelica Price MD [address] [place] [address] Specialist Cardiology 03/11/23 documented as of this encounter
--- OUTSIDE RECORDS SUMMARY | 2024-06-24 09:47 | XMS_ITS | Encounter Summary ---
Author Organization [facility] Address [address] [place] [address] Care Team Providers Care Checker Name Role Phone Ravinder Jose MD Unavailable [phone] Fabien Burgos NP Unavailable [phone] Aram Modi MD Primary Care Provider Angelica Cardozo MD Unavailable [phone] Encounter Details Date Type Department Care Team Description 02/23/2024 Orders Only Cardio [facility] [address] [place] [address] [address] [place] [phone] Default, Provider Social History Tobacco Use Types Packs/Day [...] on filedocumented in this encounter Care Teams Checker Relationship Specialty Start Date End Date Aram Modi MD PCP - General Internal Medicine 02/18/23 Ravinder Jose MD Specialist Cardiology 02/11/23 Fabien Burgos NP Specialist Cardiology 02/11/23 Angelica Price MD [address] [place] [address] Specialist Cardiology 03/11/23 documented as of this encounter
--- OUTSIDE RECORDS SUMMARY | 2024-06-24 09:47 | XMS_ITS | Clinical Summary ---
Author Organization [facility] Address [address] [place] [address] Care Team Providers Care Director Of Securities And Real Estate Name Role Phone Gael Coffman MD Primary Care Provider [phone] Allergies Active Allergy Reactions Criticality Noted Date [...] age to complete this topic Care Teams Director Of Securities And Real Estate Relationship Specialty Start Date End Date Gael Coffman MD PCP - General Endocrinology 12/19/16
--- OUTSIDE RECORDS SUMMARY | 2024-06-24 09:47 | XMS_ITS | Encounter Summary ---
Author Organization [facility] Address [address] [place] [address] Care Team Providers Care Space Sciences Director Name Role Phone Gael Coffman MD Primary Care Provider Unavail able Aram Modi MD Primary Care Provider Yanet Gilmore Pcp Primary Care Provider UnavailRavinder Wallace MD Unavailable [phone] Fabien Burgos NP Unavailable [phone] Aram Modi MD Primary Care Provider Angelica Cardozo MD Unavailable [phone] Encounter Details Date Type Department Care Team Description 02/05/2011 [facility] Medical Records [address] [place] [address] Kasey Ghosh MD Social History Tobacco Use Types Packs/Day [...] on filedocumented in this encounter Care Teams Space Sciences Director Relationship Specialty Start Date End Date Gael Coffman MD PCP - General 06/10/01 04/21/17 Aram Modi MD PCP - General Internal Medicine 04/22/17 09/10/20 [facility], Pcp PCP - General Internal Medicine 09/11/20 02/17/23 Aram Modi MD PCP - General Internal Medicine 02/18/23 Ravinder Jose MD Specialist Cardiology 02/11/23 Fabien Burgos NP Specialist Cardiology 02/11/23 Angelica Price MD [address] [place] [address] Specialist Cardiology 03/11/23 documented as of this encounter
--- OUTSIDE RECORDS SUMMARY | 2024-06-24 09:47 | XMS_ITS | Encounter Summary ---
Author Organization [facility] Address [address] [place] [address] Care Team Providers Care Manager Business Development Hospice Name Role Phone Ravinder Jose MD Unavailable [phone] Fabien Burgos NP Unavailable [phone] Aram Modi MD Primary Care Provider Angelica Cardozo MD Unavailable [phone] Encounter Details Date Type Department Care Team Description 03/05/2023 Hospital Medical Records [address] [place] [address] Social History Tobacco Use Types Packs/Day Years [...] filedocumented in this encounter Care Teams Manager Business Development Hospice Relationship Specialty Start Date End Date Aram Modi MD PCP - General Internal Medicine 02/18/23 Ravinder Jose MD Specialist Cardiology 02/11/23 Fabien Burgos NP Specialist Cardiology 02/11/23 Angelica Price MD [address] [address] Specialist Cardiology 03/11/23 documented as of this encounter
--- OUTSIDE RECORDS SUMMARY | 2024-06-24 09:47 | XMS_ITS | Clinical Summary ---
Author Organization [facility] Address [address] [place] [address] Care Team Providers Care Supervisor Die Casting Name Role Phone Ravinder Jose MD Unavailable [phone] Fabien Burgos NP Unavailable Aram Modi MD Primary Care Provider Angelica Cardozo MD Unavailable [phone] Allergies Active Allergy Reactions Severity Noted Date Comments Morphine Sulfate-Nacl 08/06/2005 CONVULSIONS Medications Medication Sig Dispensed Refills Start Date End Date Status tamsulosin (FLOMAX) 0.4 MG 24 hr capsuleIndications:B enign prostatic hyperplasia, unspecified whether lower urinary tract symptoms present Take 1 capsule by mouth daily. Take 30 mins after same meal every day. 90 Cap 1 05/17/2020 Active levothyroxine (SYNTHROID, LEVOTHROID) 75 MCG tablet Take 1 Tab by mouth daily. 90 Tab 1 08/16/2020 Active eplerenone (INSPRA) 50 MG tablet Take 1 Tablet by mouth daily. 0 08/29/2020 Active predniSONE (DELTASONE) 1 MG tablet 3 tab twice a day for 3 days, then 2 tab twice a day for 3 days, then one tab twice a day 60 tablet 1 05/08/2021 Active finasteride (PROSCAR) 5 MG tablet Take 1 Tablet by mouth daily. 0 Active aspirin 81 MG EC tablet Take 1 Tablet by mouth daily. 0 Active atorvastatin (LIPITOR) 40 MG tablet Take 1 Tablet by mouth daily. 90 Tablet 2 03/06/2023 Active omeprazole (PRILOSEC) 20 MG capsule Take 1 Capsule by mouth daily. 0 Active furosemide (LASIX) 40 MG tabletIndications:Ca rdiomyopathy, unspecified type (HCC) Take 1 Tablet by mouth daily for 360 days. 90 Tablet 3 11/05/2023 10/30/2024 Active allopurinol (ZYLOPRIM) 100 MG tablet Take 1.5 Tablets by mouth daily. 0 Active carvedilol (COREG) 6.25 MG tablet Take 1 Tablet by mouth 2 times daily (with meals). 180 Tablet 1 02/04/2024 Active Sacubitril-Valsartan 49-51 MG Tab Take 49-51 mg by mouth 2 times daily. 180 Tablet 2 03/19/2024 Active Active Problems Problem Noted Date Cardiac resynchronization therapy pacema ker (OCCUPATIONAL HYGIENIST-P) in place 08/01/2023 Second degree heart block 03/26/2023 Coronary artery disease invo lving [place] coronary artery of [place] heart without angina pectoris 02/18/2023 History of cardiac catheterization 02/17 Overview: [place] [facility] [place] [facility] indications:CHF Chest pain 02/17/2023 Cardiomyopathy 02/17/2023 Overview: WITH SYSTOLIC DYSFUCNCTION NON OBSTRUCTIVE CAD PVCs (premature ventricular contractions ) 08/29/2020 Venous insufficiency of both lower extre mities 03/22/2020 Chronic TMJ pain 06/26/2018 Irritable bowel syndrome (IBS) 8 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 Serrated polyp of colon 04/14/2018 IBS (irritable bowel syndrome) 8 BPH (benign prostatic hyperplasia) 09/15 Osteoarthritis of both knees 05/21/2017 Overview: Left knee arthroscopy for meniscal tears, spring 2016 Functional diarrhea 09/12/2016 History of lung cancer 12/08/2015 Overview: NSC, s/p lobectomy,aTte [place]; 07/21;left lower lobe Follows [facility] once a year Chronic pruritus 10/23/2015 Polymyalgia rheumatica 07/31/2015 Overview: Onset 06/03-tapered off prednisone December 2019 Prednisone restarted March 2020 Internal hemorrhoids with complication 0 05/22/2015 Vitamin B 12 deficiency 08/26/2014 Obstructive sleep apnea - mild AHI 12 Overview: [facility] Home Polysomnogram: Date 02/13/2017; AHI 12, Unclassified apneas 2; Obstructive apneas 9; Central apneas 1; Mixed apneas 0; hypopneas 72; average oxygen saturation 95% (lowest 81% without saturations <88% for 5% or more of study) AHI improved from 13 to 11. Deferred using CPAP at our last visit together. CKD (chronic kidney disease) stage 3, GF R 30-59 ml/min 10/28/2013 Overview: GFR 53 on 08/18/12. Gout 08/18/2012 Hypertension 11/28/2011 Overview: Overview: Hypertensive disorder Elevated PSA 11/29/2008 Overview: [place]; Bx; neg 06/27 PVU 06/28/2019: steadily increasing PSA, plan for prostate MRI Hypothyroid 03/28/2008 Chronic rhinitis 03/22/2008 HYPERLIPIDEMIA 08/06/2005 Resolved Problems Problem Noted Date Resolved Date Hypersomnia with sleep apnea, unspecified 200503/29/2014 Overview: IMO update GOUT 08/06/2005 03/27/2009 Immunizations Name Administration Dates Next Due COVID-19 (Moderna) PT Reported 04/23/2021 COVID-19 (Pfizer) Pt Reported 07/23/2020, 021 Influenza (> 6 Months) 02/27/2015,2013,04/01/2012,02/07,03/22/2008,03/22/2005 Influenza Flu (PT Reported) 03/16/2019, 6 Influenza Vaccine-preservati ve Free-quadrivalent 4 Years 03/30/2018 Influenza vaccine high dose age 65 and over 02/14/2020,02/17/2017 PPD-RBMG 06/23/2000 Pneumoccoccal(Adult) Polysac charide PPSV23 09/16/2013,01/15/2002 Pneumococcal Conjugate PCV-13 11/02/2014 TD (STATE SUPPLIED FOR ADULT S AND CHILDREN) 11/29/2008 Tdap 05/17/2016 Zostavax (Patient Reported) 12/24/2013 Family History Medical History Relation Name Comments HEART ATTACK Father HEART DISEASE Father Arthritis Mother Arthritis Sister HEART DISEASE Sister Autoimmune Negative Hx CA Breast Negative Hx CA Colon Negative Hx CA Prostate Negative Hx CAD Negative Hx CHF Negative Hx Cholesterol Level Negative Hx Diabetes Negative Hx Hypertension Negative Hx UT Negative Hx Mental Disorder Negative Hx Sleep Apnea Negative Hx Thyroid Disorder Negative Hx Relation Name Status Comments Father Mother Sister Social History Tobacco Use Types Packs/Day Years Used Date Smoking Tobacco: Former Smokeless Tobacco: Former Tobacco Cessation:Counseling Given: Not Answered Comments:quit 30 yrs ago- smoked only about 5 cigarettes / day Alcohol Use Standard Drinks/Week Comments Yes 0 (1 standard drink = 0.6 oz pur e alcohol) 2 to 3 glasses of wine weekly Sex Assigned at Date Recorded Not on file Job Start Date Occupation Industry Not on file Not on file Not on file Last Filed Vital Signs Vital Sign Reading Time Taken Comments Blood Pressure 100/62 12/01/2023 3:27 PM EDT Pulse 62 12/01/2023 3:27 PM EDT Temperature 36.4 ??C (97.5 ??F) 07/25/2020 9:09 AM ES T Respiratory Rate 12 05/08/2021 9:13 AM EST Oxygen Saturation 97% 12/01/2023 3:27 PM EDT Inhaled Oxygen Concentration - - Weight 79.5 kg (175 lb 3.2 oz) 12/01/2023 3:27 P M EDT Height 167.6 cm (5' 6 ) 12/01/2023 3:27 PM EDT Body Mass Index 28.28 12/01/2023 3:27 PM EDT Plan of Treatment Health Maintenance Due Date Last Done Comments SHINGLES VACCINE (1 of 2) 02/18/2014 DEPRESSION SCREEN 03/31/2019 03/31/2018, , 05/18/2015, Additional history exists FALL RISK ASSESSMENT 04/06/2020 04/06/2019, 03/31/2018, 01/14/2017 (Completed), Additional history exists Covid-19 Vaccine (2022-2 4 season) 2024 04/23/2021, 07/23/2020, 06/25/2020 INFLUENZA (#1) 2024 02/14/2020, 02/17, 02/17/2019, Additional history exists BMI CHECK/ADVISE 05/19/2024 12/01/2023, , 02/18/2023, Additional history exists CHOLESTEROL SCREENING 09/27/2024 09/28/2019 , 04/07/2019, 04/28/2017, Additional history exists DTAP/TDAP/TD (2 - Td or Tdap) 05/17/2026 05/17/2016, 11/29/2008 PNEUMOCOCCAL VACCINE Completed 11/02/2014, 09/16/2013, 01/15/2002 Care Teams Supervisor Die Casting Relationship Specialty Start Date End Date Aram Modi MD PCP - General Internal Medicine 02/18/23 Ravinder Jose MD Specialist Cardiology 02/11/23 Fabien Burgos NP Specialist Cardiology 02/11/23 Angelica Price MD [address] [facility] [address] [place] [address] Specialist Cardiology 03/11/23
--- OUTSIDE RECORDS SUMMARY | 2024-06-24 09:47 | XMS_ITS | Encounter Summary ---
Author Organization [facility] Address [address] [place] [address] Care Team Providers Care Waistline Joiner Overlock Name Role Phone Gael Coffman MD Primary Care Provider Unavail able Aram Modi MD Primary Care Provider Yanet Gilmore Pcp Primary Care Provider UnavailRavinder Wallace MD Unavailable [phone] Fabien Burgos NP Unavailable [phone] Aram Modi MD Primary Care Provider Angelica Cardozo MD Unavailable [phone] Encounter Details Date Type Department Care Team Description 12/03/2011 Potable Water Treatment Operator Report Medical Records [address] [place] [id number] Reilly Gaffney MD Social History Tobacco Use [...] on filedocumented in this encounter Care Teams Waistline Joiner Overlock Relationship Specialty Start Date End Date Gael Coffman MD PCP - General 06/10/01 04/21/17 Aram Modi MD PCP - General Internal Medicine 04/22/17 09/10/20 Community, Pcp PCP - General Internal Medicine 09/11/20 02/17/23 Aram Modi MD PCP - General Internal Medicine 02/18/23 Ravinder Jose MD Specialist Cardiology 02/11/23 Fabien Burgos NP Specialist Cardiology 02/11/23 Angelica Price MD [address] [place] [address] Specialist Cardiology 03/11/23 documented as of this encounter
--- OUTSIDE RECORDS SUMMARY | 2024-06-24 09:47 | XMS_ITS | Encounter Summary ---
Author Organization [facility] Address [address] [place] [address] Care Team Providers Care Scientific Laboratory Supervisor Name Role Phone Gael Coffman MD Primary Care Provider Unavail able Aram Modi MD Primary Care Provider Yanet Gilmore Pcp Primary Care Provider UnavailRavinder Wallace MD Unavailable [phone] Fabien Burgos NP Unavailable [phone] Aram Modi MD Primary Care Provider Angelica Cardozo MD Unavailable [phone] Encounter Details Date Type Department Care Team Description 02/06/2011 [facility] Medical Records [address] [place] [address] Trupti Britton Social History Tobacco Use Types Packs/Day Years [...] on filedocumented in this encounter Care Teams Scientific Laboratory Supervisor Relationship Specialty Start Date End Date Gael Coffman MD PCP - General 06/10/01 04/21/17 Aram Modi MD PCP - General Internal Medicine 04/22/17 09/10/20 Community, Pcp PCP - General Internal Medicine 09/11/20 02/17/23 Aram Modi MD PCP - General Internal Medicine 02/18/23 Ravinder Jose MD Specialist Cardiology 02/11/23 Fabien Burgos NP Specialist Cardiology 02/11/23 Angelica Price MD [address] [place] [address] Specialist Cardiology 03/11/23 documented as of this encounter
--- OUTSIDE RECORDS SUMMARY | 2024-06-24 09:48 | XMS_ITS | Encounter Summary ---
Author Organization [facility] Address [address] [place] [address] Care Team Providers Care Graphic Design Manager Name Role Phone Ravinder Jose MD Unavailable [phone] Fabien Burgos NP Unavailable [phone] Aram Modi MD Primary Care Provider Angelica Cardozo MD Unavailable Encounter Details Date Type Department Care Team Description 03/22/2023 Telephone Cardio PVC POC [address] [facility] [address] [place] [address] Danny Hammond MD [address] [facility] [address] [place] [address] Social History Tobacco Use Types Packs/Day Years [...] encounter Miscellaneous Notes * Telephone Encounter - Danny Hammond MD - 03/22/2023 1:35 PM EDT Called saying he felt deathly ill feeling cold with nausea. No signs of infection at pacer site per his report. Recommended he seek emergency care if he was feeling this poorly though none of the symptoms clearly pointed to a device infection. documented in this encounter Plan of Treatment Not on file documented as of this encounter Visit Diagnoses Not on filedocumented in this encounter Care Teams Graphic Design Manager Relationship Specialty Start Date End Date Aram Modi MD PCP - General Internal Medicine 02/18/23 Ravinder Jose MD Specialist Cardiology 02/11/23 Fabien Burgos NP Specialist Cardiology 02/11/23 Angelica Price MD [address] [place] [address] Specialist Cardiology 03/11/23 documented as of this encounter
--- OUTSIDE RECORDS SUMMARY | 2024-06-24 09:48 | XMS_ITS | Encounter Summary ---
Author Organization [facility] Address [address] [place] [address] Care Team Providers Care Wound Care Specialist Name Role Phone Gael Coffman MD Primary Care Provider Unavail able Aram Modi MD Primary Care Provider Yanet Gilmore Pcp Primary Care Provider UnavailRavinder Wallace MD Unavailable [phone] Fabien Burgos NP Unavailable [phone] Aram Modi MD Primary Care Provider Angelica Cardozo MD Unavailable [phone] Reason for Visit * Reason Onset Date Comments Mychart Rx Refill 08/01/2014 Encounter Details Date Type Department Care Team Description 08/01/2014 Pt. Non Urgent Medical Question Adult Medicine - [address] [address] Gael Coffman MD Social History Tobacco Use [...] Progress Notes * Vanessa Alanis L.P.N. - 08/01/2014 2:31 PM EDTFrom: Cy Velez To: Gael Coffman MD Sent: 08/01/2014 2:29 PM EDT Subject: OMEPROZOLE Trying this message third time as your site not accepting. Short version: need to up my script to 2per day and would like 3 months supply. This was verbally advised to me by Dr. Wiley as he agreed with note from Dr. Ghazala Fisher of [facility]. Further, a second letter was faxed to your Dept. as Dr. Fisher recommended monthly B12 shots documented in this encounter Plan of Treatment Not on file documented as of this encounter Visit Diagnoses Not on filedocumented in this encounter Care Teams Wound Care Specialist Relationship Specialty Start Date End Date Gael Coffman MD PCP - General 06/10/01 04/21/17 Aram Modi MD PCP - General Internal Medicine 04/22/17 09/10/20 [facility] PCP - General Internal Medicine 09/11/20 02/17/23 Aram Modi MD PCP - General Internal Medicine 02/18/23 Ravinder Jose MD Specialist Cardiology 02/11/23 Faiben Burgos NP Specialist Cardiology 02/11/23 Angelica Price MD [address] [address] Specialist Cardiology 03/11/23 documented as of this encounter
--- OUTSIDE RECORDS SUMMARY | 2024-06-24 09:48 | XMS_ITS | Encounter Summary ---
Author Organization [facility] Address [address] [place] [address] Care Team Providers Care Field Agent Name Role Phone Ravinder Jose MD Unavailable [phone] Fabien Burgos NP Unavailable [phone] Aram Modi MD Primary Care Provider Angelica Cardozo MD Unavailable [phone] Encounter Details Date Type Department Care Team Description 02/28/2023 Hospital Medical Records [address] [place] [id number] Social History Tobacco Use Types Packs/Day Years [...] Date/Time Associated Diagnosis Comments OUTSIDE EKG Routine 03/03/[address] Routine 02/28/2023 documented in this encounter Results * OUTSIDE EKG (03/03/2023) Provider Abstract CARDIOLOGY * OUTSIDE CT (02/28/2023) Provider Abstract RADIOLOGY documented in this encounter Visit Diagnoses Not on filedocumented in this encounter Care Teams Field Agent Relationship Specialty Start Date End Date Aram Modi MD PCP - General Internal Medicine 02/18/23 Ravinder Jose MD Specialist Cardiology 02/11/23 Fabien Burgos NP Specialist Cardiology 02/11/23 Angelica Price MD [address] [place] [address] Specialist Cardiology 03/11/23 documented as of this encounter
--- OUTSIDE RECORDS SUMMARY | 2024-06-24 09:48 | XMS_ITS | Encounter Summary ---
Author Organization [facility] Address [address] [place] [address] Care Team Providers Care Assistant Housekeeping Manager Name Role Phone Ravinder Jose MD Unavailable [phone] Fabien Burgos NP Unavailable [phone] Aram Modi MD Primary Care Provider Angelica Cardozo MD Unavailable [phone] Encounter Details Date Type Department Care Team Description 02/24/2023 [facility] Report Medical Records [address] [place] [id number] Abstract, Provider Social History Tobacco Use Types [...] on filedocumented in this encounter Care Teams Assistant Housekeeping Manager Relationship Specialty Start Date End Date Aram Modi MD PCP - General Internal Medicine 02/18/23 Ravinder Jose MD Specialist Cardiology 02/11/23 Fabien Burgos NP Specialist Cardiology 02/11/23 Angelica Price MD [address] [address] Specialist Cardiology 03/11/23 documented as of this encounter
--- OUTSIDE RECORDS SUMMARY | 2024-06-24 09:48 | XMS_ITS | Encounter Summary ---
Author Organization [facility] Address [address] [place] [address] Care Team Providers Care Blast Furnace Keeper Name Role Phone Ravinder Jose MD Unavailable [phone] Fabien Burgos NP Unavailable [phone] Aram Modi MD Primary Care Provider Angelica Cardozo MD Unavailable [phone] Reason for Visit * Reason Onset Date Comments Shortness Of Breath 10/09/2023 Encounter Details Date Type Department Care Team Description 10/09/2023 Telephone Cardio PVC [facility] [address] [facility] [address] [place] [id number] Ravinder Jose MD [address] [place] [id number] Shortness Of Breath Social History Tobacco Use Types Packs/Day Years [...] encounter Miscellaneous Notes * Telephone Encounter - Constanza Durant - 10/10/2023 1:26 PM EDT 24hr Holter appt booked for 10/16/23 @ 9am. I called patient and left voice mail message, also mailed reminder. * Telephone Encounter - Fabien Burgos NP - 10/09/2023 4:43 PM EDT Spoke to patient - no real pattern to his symptoms ?symptomatic PVCs - will get 24hr holter monitor. * Telephone Encounter - Deisy Baker R.N. - 10/09/2023 3:42 PM EDT I spoke with pt, he states he discussed these symptoms with MICHELE Burgos at his last visit, and states since visit episodes are happening more frequently. Happens 1- 2 times a day. States during cardiac rehab and light exercise at home he feels fine. Episodes happen when he is at rest. States suddenly hewill have a feeling in his chest that goes up through his neck and causes him to lose his breath.He states this will last for 3-5 minutes and resolve. He denies chest pain, neck pain, dizziness, and lightheadedness. Just causes him to feel anxious. He describes it as a hallow feeling . * Telephone Encounter - Ricardo Gardner - 10/09/2023 3:35 PM EDT No alerts through [employer] as of now. Pacing percentages (AP ~53%, BP 100%) of late are in keepingwith amounts per life of device. Thanks. * Telephone Encounter - Deisy Baker RJg - 10/09/2023 3:26 PM EDT Any alerts from device? * Telephone Encounter - Damaris Hicks - 10/09/2023 3:19 PM EDT Patient called he has been having a hollow/ skipping feeling in his chest and neck accompanied by shortness of breathe. These episodes last 3-5 minutes and are becoming more frequent. He would dike acall back to discuss, . documented in this encounter Plan of Treatment Not on file documented as of this encounter Results * MT XTRNL ECG & 48 HR RECORD SCAN STOR W/R&I (10/21/2023) Fabien Burgos NP CARDIOLOGY PVCA documented in this encounter Visit Diagnoses Diagnosis Palpitations- Primary documented in this encounter Care Teams Blast Furnace Keeper Relationship Specialty Start Date End Date Aram Modi MD PCP - General Internal Medicine 02/18/23 Ravinder Jose MD Specialist Cardiology 02/11/23 Fabien Burgos NP Specialist Cardiology 02/11/23 Angelica Price MD [address] [place] [address] Specialist Cardiology 03/11/23 documented as of this encounter
--- OUTSIDE RECORDS SUMMARY | 2024-06-24 09:48 | XMS_ITS | Encounter Summary ---
Author Organization [facility] Address [address] [place] [address] Care Team Providers Care Team Leader/Research Psychologist Name Role Phone Ravinder Jose MD Unavailable [phone] Fabien Burgos NP Unavailable [phone] Aram Modi MD Primary Care Provider Angelica Cardozo MD Unavailable [phone] Encounter Details Date Type Department Care Team Description 03/18/2023 SCAN Medical Records [address] [place] [id number] Abstract, Provider Social History Tobacco Use Types [...] on filedocumented in this encounter Care Teams Team Leader/Research Psychologist Relationship Specialty Start Date End Date Aram Modi MD PCP - General Internal Medicine 02/18/23 Ravinder Jose MD Specialist Cardiology 02/11/23 Fabien Burgos NP Specialist Cardiology 02/11/23 Angelica Price MD [address] [address] Specialist Cardiology 03/11/23 documented as of this encounter
--- OUTSIDE RECORDS SUMMARY | 2024-06-24 09:48 | XMS_ITS | Clinical Summary ---
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 [address] [place] [address] Aram Modi MD Medical Records 05/18/2024 7:30 AM EST Ancillary Procedure [facility] - [address] [place] [phone] Suspected DVT (deep vein thrombosis); Chest pain on breathing 05/17/2024 1:[address] [facility] [address] [place] [address] Brooklynn Church MD Other cardiomyopathy ([facility]/HCC) (Primary Dx); Primary hypertension; Pure hypercholesterolemia; Stage 3 chronic kidney disease, unspecified whether stage 3a or 3b CKD (CMS/HCC); Polymyalgia rheumatica ([facility]); Second degree heart block; Suspected DVT (deep vein thrombosis); Chest pain on breathing 05/13/[address] [facility] [address] [place] [address] Brooklynn Church MD 05/06/[address] [facility] [address] [place] [address] Brooklynn Church MD medication 04/28/[address] [facility] [address] [facility] [address] [place] [address] Aram Modi MD Medical Records 04/20/2024 8:30 AM EST Ancillary Procedure [facility] - [address] [place] [address] Encounter for adjustment or management of cardiac device 04/20/2024 Telephone [facility] - [address] [place] [address] Ricardo Gardner RN 03/25/[address] [facility] [address] [place] [phone] Brooklynn Church MD spoke wi.pt to book preop appt. from Last 3 Months Immunizations Name Administration Dates Next Due Influenza Quadravalent, 0.5m l (Fluad) 65yo and older 04/15/2022 Influenza trivalent, 0.5mL ( Fluad) 65yo and older 02/14/2020,02/17/2017 Influenza trivalent, 0.5mL, preservative free (Fluarix; FluLaval; Fluzone) ages 6mo and older (Afluria) 3 years and older 02/27/2015,05/02/2014,04/01/2012,02/07,03/22/2008,03/22/2005 Influenza, Unspecified 03/16/2019,02/26/2016 PPD Test 06/23/2000 [employer] SARS-CoV-2 COVID-19, mRNA, LNP-S, preservative free 07/23/2020,06/25/2020 Pneumococcal conjugate 13 va lent (Prevnar 13, PCV13) 2mo and older 11/02/2014 Pneumococcal polysaccharide 23 valent (Pneumovax 23) 2yo and older 09/16/2013,01/15/2002 Td Tetanus diptheria (Tdvax) 7yo and older 11/29/2008 Tdap Tetanus diptheria acell ular pertussis (Boostrix; Adacel) 7yo and older 05/17/2016 Zoster Live 12/24/2013 Surgical History Surgery Date Site/Laterality Comments OTHER SURGICAL HISTORY 2004 PROCEDURE: MO RMVL LUNG OTHER THAN PNEUMONECTOMY 1 LOBE LOBECT; COMMENT: LLL for Ca OTHER SURGICAL HISTORY 05/22/12 PROCEDURE: NUCLEAR STRESS TEST REPORT; COMMENT: Nerissa Villanueva, Neg OTHER SURGICAL HISTORY 01/30 PROCEDURE: OUTSIDE NUCLEAR STRESS TEST; COMMENT: neg OTHER SURGICAL HISTORY 01/30 PROCEDURE: CTA CHEST; W/WO CONTRAST MAT; COMMENT: neg COLONOSCOPY 06/29/04 PROCEDURE: HISTORICAL COLONOSCOPY; COMMENT: Nataly perry COLONOSCOPY 03/01 [facility] PROCEDURE: HISTORICAL COLONOSCOPY; COMMENT: devika Shipley; otherwise normal to terminal ileum with normal colonic bxys. UPPER GASTROINTESTINAL ENDOSCOPY 03/01 [facility] PROCEDURE: MO UPPER GI ENDOSCOPY PERFORMED; COMMENT: NOrmal, with normal duodenal biopsies UPPER GASTROINTESTINAL ENDOSCOPY 12/26/2010 PROCEDURE: MO UPPER GI ENDOSCOPY PERFORMED; COMMENT: Minimal erosive [...] dise ase) stage 3, GFR 30-59 ml/min ([facility]); COMMENT: GFR 53 on 08/18/12. Cystic mass [...] apnea 03/29/2014 DX:Obstr uctive sleep apnea; COMMENT: [facility] Home Polysomnogram: Date 02/13/2017; AHI 12, Unclassified [...] Description 10/28/2024 9:10 AM EDT Office Visit [facility] - [address] [facility] [address] [place] [id number] Fabien Burgos NP [address] [place] [address] 04/20/2025 8:00 AM EST Ancillary Procedure [facility] [address] [facility] [address] [place] [address] Health Maintenance Due Date Last Done Comments [...] this topic Medical Devices Implanted Type Area Metrology Technician Device Identifier Shelf Expiration Date Model / Serial / Lot Bsci-Crm [id number] Implanted:02/16 (Quantity not on file) Cardiac QUALITY ASSURANCE INTERN-P [place] [employer]ARD RHYTHM MGMT [id number] / [id number] / Procedures Procedure Name Priority Date/Time Associated [...] 7:29 PM EST) Date Time Interrogation Session [id number] CV DEVICE CHECK Type Interrogation Session Remote Scheduled CV DEVICE CHECK Implantable Pulse Generator Metrology Technician BSX CV DEVICE CHECK Implantable Pulse Generator Type QUALITY ASSURANCE INTERN-P CV DEVICE CHECK Implantable Pulse Generator Model U128 CV DEVICE CHECK Implantable Pulse Generator Serial Number [id number] CV DEVICE CHECK Implantable Pulse Generator Implant Date 20230305 CV DEVICE CHECK Battery Remaining Percentage 100.00 CV DEVICE CHECK Battery Remaining Longevity 114.0 CV DEVICE CHECK Battery Status Beginning of Service CV DEVICE CHECK Ayan Statistic RA Percent Paced 41.00 CV DEVICE CHECK Ayan Statistic RV Percent Paced 100.00 CV DEVICE CHECK QUALITY ASSURANCE INTERN Statistic LV Percent Paced 100.00 CV DEVICE CHECK Atrial Tachy Statistic AT/AF [place] Percent 0.00 CV DEVICE CHECK Lead Channel [...] CV DEVICE CHECK Ventricular chambers paced during QUALITY ASSURANCE INTERN pacing. BiV CV DEVICE CHECK Ayan Setting Lower Rate Limit 60 CV DEVICE CHECK Ayan Setting AT Mode Switch Rate 170 CV DEVICE CHECK Ayan Setting Maximum Tracking Rate 130 CV DEVICE CHECK Ayan Setting Maximum Sensor Rate 130 CV DEVICE CHECK Ayan Setting PAV Delay 150 CV DEVICE CHECK Ayan Setting SUZY Delay 100 CV DEVICE CHECK QUALITY ASSURANCE INTERN LV-RV Delay 0 CV D EVICE CHECK [...] the left leg. The vessels showed compressibility. Shelter Advocate Details A call scale, color and doppler [...] GEMUSE QTc 466 ms GEMUSE P Wave [place] 25 degrees GEMUSE R [place] 0 degrees GEMUSE T [place] 82 degrees GEMUSE ECG Interpretation AV dual-paced rhythm Abnormal ECG When compared with ECG of 27-AUG-2004 14:55, Electronic ventricular pacemaker has replaced Sinus rhythm Confirmed by BROOKLYNN CHURCH ([id number]) on 05/17/2024 2:55:34 PM GEMUSE 05/17/2024 1:22 PM EST 05/17/2024 2:55 PM EST Brooklynn Church MD ECG ORDERABLES GEMUSE * CARDIAC DEVICE CHECK- IN CLINIC- [facility] (04/20/2024 8:31 AM EST) Date Time Interrogation Session [id number] CV DEVICE CHECK Implantable Pulse Generator Metrology Technician BSX CV DEVICE CHECK Implantable Pulse Generator Type QUALITY ASSURANCE INTERN-P CV DEVICE CHECK Implantable Pulse Generator Model U128 CV DEVICE CHECK Implantable Pulse Generator Serial Number [id number] CV DEVICE CHECK Implantable Pulse Generator Implant [...] CV DEVICE CHECK Ventricular chambers paced during QUALITY ASSURANCE INTERN pacing. BiV CV DEVICE CHECK Ayan Setting [...] * Annual BMP Blood Test (12/02/2022) Pathologist [facility] Annual BMP Blood Test abstracted Historical Provider [...] Recently Relevant to Health Maintenance Care Teams Spray Gunner Relationship Specialty Start Date End Date Aram Modi MD [address] [address] PCP - General 04/22/17
--- OUTSIDE RECORDS SUMMARY | 2024-06-24 09:48 | XMS_ITS | Encounter Summary ---
Author Organization [facility] Address [address] [place] [address] Care Team Providers Care Electrician Constructor Supervisor Name Role Phone Ravinder Jose MD Unavailable [phone] Fabien Burgos NP Unavailable [phone] Aram Modi MD Primary Care Provider Angelica Cardozo MD Unavailable [phone] Encounter Details Date Type Department Care Team Description 03/18/2023 [facility] Medical Records [address] [place] [address] Abstract, Provider Social History Tobacco Use Types [...] on filedocumented in this encounter Care Teams Electrician Constructor Supervisor Relationship Specialty Start Date End Date Aram Modi MD PCP - General Internal Medicine 02/18/23 Ravinder Jose MD Specialist Cardiology 02/11/23 Fabien Burgos NP Specialist Cardiology 02/11/23 Angelica Price MD [address] [address] Specialist Cardiology 03/11/23 documented as of this encounter
--- OUTSIDE RECORDS SUMMARY | 2024-06-24 09:48 | XMS_ITS | Encounter Summary ---
Author Organization [facility] Address [address] [place] [address] Care Team Providers Care Film Librarian Name Role Phone Aram Modi MD Primary Care Provider Yanet Gilmore, Pcp Primary Care Provider [facility] Ravinder Jose MD Unavailable [phone] Fabien Burgos NP Unavailable [phone] Aram Modi MD Primary Care Provider Angelica Cardozo MD Unavailable [phone] Encounter Details Date Type Department Care Team Description 05/15/2017 [facility] Medical Records [address] [place] [address] Abstract, Provider Social History Tobacco Use Types [...] on filedocumented in this encounter Care Teams Film Librarian Relationship Specialty Start Date End Date Aram Modi MD PCP - General Internal Medicine 04/22/17 09/10/20 [facility], Pcp PCP - General Internal Medicine 09/11/20 02/17/23 Aram Modi MD PCP - General Internal Medicine 02/18/23 Ravinder Jose MD Specialist Cardiology 02/11/23 Fabien Burgos NP Specialist Cardiology 02/11/23 Angelica Price MD 300 [facility] [address] [place] [address] Specialist Cardiology 03/11/23 documented as of this encounter
--- OUTSIDE RECORDS SUMMARY | 2024-06-24 09:48 | XMS_ITS | Encounter Summary ---
Author Organization [facility] Address [address] [place] [address] Care Team Providers Care Electronics Mechanic Name Role Phone Ravinder Jose MD Unavailable [phone] Fabien Burgos NP Unavailable [phone] Aram Modi MD Primary Care Provider Angelica Cardozo MD Unavailable Encounter Details Date Type Department Care Team Description 11/21/2023 [facility] Medical Records [address] [place] [address] Abstract, Provider Social History Tobacco Use Types [...] Date/Time Associated Diagnosis Comments OUTSIDE LAB Routine 11/21/2023 documented in this encounter Results * OUTSIDE LAB (11/21/2023) Provider Default LAB documented in this encounter Visit Diagnoses Not on filedocumented in this encounter Care Teams Electronics Mechanic Relationship Specialty Start Date End Date Aram Modi MD PCP - General Internal Medicine 02/18/23 Ravinder Jose MD Specialist Cardiology 02/11/23 Fabien Burgos NP Specialist Cardiology 02/11/23 Angelica Price MD [address] [address] Specialist Cardiology 03/11/23 documented as of this encounter
--- OUTSIDE RECORDS SUMMARY | 2024-06-24 09:48 | XMS_ITS | Encounter Summary ---
Author Organization [facility] Address [address] [place] [address] Care Team Providers Care Cns Name Role Phone Gael Coffman MD Primary Care Provider Unavail able Aram Modi MD Primary Care Provider Yanet Gilmore Pcp Primary Care Provider UnavailRavinder Wallace MD Unavailable [phone] Fabien Burgos NP Unavailable [phone] Aram Modi MD Primary Care Provider Angelica Cardozo MD Unavailable Reason for Visit * Reason Onset Date Comments other 08/26/2014 Encounter Details Date Type Department Care Team Description 08/26/2014 Pt. Non Urgent Medical Question Adult Medicine - [place] [address] [place] [address] Gael Coffman MD Social History Tobacco Use [...] encounter Progress Notes * Vanessa OrtizPDaisyNDaisy - 08/26/2014 2:53 PM EDTFrom: Cy Holly Rosie To: Gael Coffman MD Sent: 08/26/2014 2:52 PM EDT Subject: Returned phone call Tried returning call. Instructions were to call [phone] Dr. Coffman's office. Because no name was given they could not connect me. Feel the call was in reference to B 12 injections documented in this encounter Plan of Treatment Not on file documented as of this encounter Visit Diagnoses Not on filedocumented in this encounter Care Teams Cns Relationship Specialty Start Date End Date Gael Coffman MD PCP - General 06/10/01 04/21/17 Aram Modi MD PCP - General Internal Medicine 04/22/17 09/10/20 [facility] Pcp PCP - General Internal Medicine 09/11/20 02/17/23 Aram Modi MD PCP - General Internal Medicine 02/18/23 Ravinder Jose MD Specialist Cardiology 02/11/23 Fabien Burgos NP Specialist Cardiology 02/11/23 Angelica Price MD [address] [place] [address] Specialist Cardiology 03/11/23 documented as of this encounter
--- OUTSIDE RECORDS SUMMARY | 2024-06-24 09:48 | XMS_ITS | Encounter Summary ---
Author Organization [facility] Address [address] [place] [address] Care Team Providers Care Open Hearth Stockyard Supervisor Name Role Phone Aram Modi MD Primary Care Provider Unakuldeep Gilmore Pcp Primary Care Provider Unavaillegacy health Ravinder Salvador MD Unavailable [phone] Fabien Burgos NP Unavailable [phone] Aram Modi MD Primary Care Provider Unava Angelica Russell MD Unavailable [phone] Encounter Details Date Type Department Care Team Description 05/23/2017 Telephone Medicine/Pediatrics - [address] [address] Aram Modi MD Social History Tobacco Use [...] encounter Miscellaneous Notes * Telephone Encounter - Aram Modi MD - 05/23/2017 1:15 PM EST Order placed, thanks documented in this encounter Plan of Treatment Not on file documented as of this encounter Results * (ABNORMAL) BASIC METABOLIC PANEL (08/06/2017 1:11 PM EDT) GLUCOSE 103(H) 70 - 100 mg/dL 08/06/2017 6:01 PM [facility] Comment: Reference range applicable to fasting specimens only Based on recommendations from the ADA and AACE, the fasting glucose reference range has been changed to 70-100 mg/dL. ??This change is effective October 02, 2009 BUN 38(H) 5 - 25 mg/dL 08/06/2017 6:[address] [facility] CREAT 1.6(H) 0.7 - 1.5 mg/dL 08/06/2017 6:[address] [facility] GFR 45(L) >60 08/06/2017 6:[address] [facility] Comment: If patient is -Swiss, multiply result by 1.21 Chronic Kidney Disease: < 60 ml/min/1.73 square meters Kidney Failure: < 15 ml/min/1.73 square meters Sodium 139 133 - 145 mEq/L 08/06/2017 6:01 PM [facility] Potassium 4.9 3.5 - 5.5 mEq/L 08/06/2017 6:[address] [facility] Chloride 101 96 - 108 mEq/L 08/06/2017 6:[address] [facility] CO2 26.8 21.0 - 32.0 mEq/L 08/06/2017 6:[address] [facility] CALCIUM 9.7 8.5 - 10.5 mg/dL 08/06/2017 6:[address] [facility] 08/06/2017 1:11 PM EDT 08/06/2017 1:11 PM EDT Aram Modi MD LAB [facility] [address] [facility] documented in this encounter Visit Diagnoses Diagnosis Essential hypertension- Primary Unspecified essential hypertension documented in this encounter Care Teams Open Hearth Stockyard Supervisor Relationship Specialty Start Date End Date Aram Modi MD PCP - General Internal Medicine 04/22/17 09/10/20 [facility], Pcp PCP - General Internal Medicine 09/11/20 02/17/23 Aram Modi MD PCP - General Internal Medicine 02/18/23 Ravinder Jose MD Specialist Cardiology 02/11/23 Fabien Burgos NP Specialist Cardiology 02/11/23 Angelica Price MD [address] [place] [address] Specialist Cardiology 03/11/23 documented as of this encounter
--- OUTSIDE RECORDS SUMMARY | 2024-06-24 09:48 | XMS_ITS | Encounter Summary ---
Author Organization [facility] Address [address] [place] [address] Care Team Providers Care Tool Honing Machine Set Up Operator Name Role Phone Ravinder Jose MD Unavailable [phone] Fabien Burgos NP Unavailable [phone] Aram Modi MD Primary Care Provider Angelica Cardozo MD Unavailable [phone] Encounter Details Date Type Department Care Team Description 03/21/2023 Refill Medicine/Pediatrics - [address] [id number] Jeronimo Rothman PA-C Social History Tobacco Use Types Packs/Day [...] on filedocumented in this encounter Care Teams Tool Honing Machine Set Up Operator Relationship Specialty Start Date End Date Aram Modi MD PCP - General Internal Medicine 02/18/23 Ravinder Jose MD Specialist Cardiology 02/11/23 Fabien Burgos NP Specialist Cardiology 02/11/23 Angelica Price MD 300 [facility] [address] [place] [address] Specialist Cardiology 03/11/23 documented as of this encounter
--- OUTSIDE RECORDS SUMMARY | 2024-06-24 09:48 | XMS_ITS | Encounter Summary ---
Author Organization [facility] Address [address] [place] [address] Care Team Providers Care Cold Roll Operator Name Role Phone Ravinder Jose MD Unavailable [phone] Fabien Burgos NP Unavailable [phone] Aram Modi MD Primary Care Provider Angelica Cardozo MD Unavailable [phone] Encounter Details Date Type Department Care Team Description 03/25/2023 Orders Only Cardio PVC POC [address] [facility] [address] [place] [address] Default, Provider Social History Tobacco Use Types [...] Date/Time Associated Diagnosis Comments OUTSIDE LAB Routine 03/22/2023 documented in this encounter Results * OUTSIDE LAB (03/22/2023) Provider Default LAB documented in this encounter Visit Diagnoses Not on filedocumented in this encounter Care Teams Cold Roll Operator Relationship Specialty Start Date End Date Aram Modi MD PCP - General Internal Medicine 10/3/23 Ravinder Jose MD Specialist Cardiology 02/11/23 Fabien Burgos NP Specialist Cardiology 02/11/23 Angelica Price MD [address] [address] Specialist Cardiology 03/11/23 documented as of this encounter
--- OUTSIDE RECORDS SUMMARY | 2024-06-24 09:48 | XMS_ITS | Encounter Summary ---
Author Organization [facility] Address [address] [place] [address] Care Team Providers Care Supervisor Car Installations Name Role Phone Aram Modi MD Primary Care Provider Unakuldeep Gilmore Pcp Primary Care Provider [facility] Ravinder Salvador MD Unavailable [phone] Fabien uBrgos NP Unavailable Aram Modi MD Primary Care Provider Unava Angelica Russell MD Unavailable [phone] Encounter Details Date Type Department Care Team Description 12/22/2017 Pt. Non Urgent Medic al Question Medicine/Pediatrics - [address] [address] Aram Modi MD Social History Tobacco Use [...] as of this encounter Progress Notes * Mary Ann Payan RN - 12/22/2017 10:42 AM EDTFrom: Cy Velez To: Aram Modi MD Sent: 12/22/2017 9:45 AM EDT Subject: RX Dear Dr. Modi or attending occupational therapist's assistant Received second call from [facility] with regard to unanswered prescriptiont request from your office. I am in need of these prescriptions olivas urgent. I was contacted by your office last week by someone who made a new appointment and was advised that the scripts would not be held up. Because I need these scripts now [facility] is requesting a phone call to them to expedite these orders. Please respond that this will be taken care of. Thank you, Cy Velez documented in this encounter Plan of Treatment Not on file documented as of this encounter Visit Diagnoses Not on filedocumented in this encounter Care Teams Supervisor Car Installations Relationship Specialty Start Date End Date Aram Modi MD PCP - General Internal Medicine 04/22/17 09/10/20 [facility] Pcp PCP - General Internal Medicine 09/11/20 02/17/23 Aram Modi MD PCP - General Internal Medicine 02/18/23 Ravinder Jose MD Specialist Cardiology 02/11/23 Fabien Burgos NP Specialist Cardiology 02/11/23 Angelica Price MD [address] [place] [address] Specialist Cardiology 03/11/23 documented as of this encounter
--- OUTSIDE RECORDS SUMMARY | 2024-06-24 09:48 | XMS_ITS | Encounter Summary ---
Author Organization [facility] Address [address] [place] [address] Care Team Providers Care Retail Marketing Manager Name Role Phone Gael Coffman MD Primary Care Provider Unavail able Aram Modi MD Primary Care Provider Yanet Gilmore Pcp Primary Care Provider UnavailRavinder Wallace MD Unavailable [phone] Fabien Burgos NP Unavailable [phone] Arma Modi MD Primary Care Provider Angelica Cardozo MD Unavailable [phone] Reason for Visit * Reason Onset Date Comments Advice 08/26/2014 Encounter Details Date Type Department Care Team Description 08/26/2014 Pt. Non Urgent Medical Question Adult Medicine - [place] [address] [place] [address] Gael Coffman MD Social History Tobacco Use [...] Progress Notes * Vanessa Alanis L.P.N. - 08/26/2014 9:58 AM EDTFrom: Cy J Rosie To: Gael Coffman MD Sent: 08/26/2014 9:20 AM EDT Subject: B12 shots per Dr[facility] of [facility] Hi Dr. Coffman Still waiting your response to [facility]'s request that I receive B12 shots monthly. I have a follow upappoint. next week and I am sure that question will be addressed. Thank You Shan Rosie documented in this encounter Plan of Treatment Not on file documented as of this encounter Visit Diagnoses Not on filedocumented in this encounter Care Teams Retail Marketing Manager Relationship Specialty Start Date End Date Gael Coffman MD PCP - General 06/10/01 04/21/17 Aram Modi MD PCP - General Internal Medicine 04/22/17 09/10/20 [facility] PCP - General Internal Medicine 09/11/20 02/17/23 Aram Modi MD PCP - General Internal Medicine 02/18/23 Ravinder Jose MD Specialist Cardiology 02/11/23 Fabien Burgos NP Specialist Cardiology 02/11/23 Angelica Price MD [address] [place] [address] Specialist Cardiology 03/11/23 documented as of this encounter
--- OUTSIDE RECORDS SUMMARY | 2024-06-24 09:48 | XMS_ITS | Encounter Summary ---
Author Organization [facility] Address [address] [place] [address] Care Team Providers Care Jewel Bearing Polisher Name Role Phone Ravinder Jose MD Unavailable [phone] Fabien Burgos NP Unavailable [phone] Aram Modi MD Primary Care Provider Angelica Cardozo MD Unavailable [phone] Encounter Details Date Type Department Care Team Description 07/12/2023 Pt. Non Urgent Medical Question Cardio PVC [facility] [address] [place] [id number] Fabien Burgos, LEAH [address] [place], [place] [id number] Social History Tobacco Use Types Packs/Day Years [...] on filedocumented in this encounter Care Teams Jewel Bearing Polisher Relationship Specialty Start Date End Date Aram Modi MD PCP - General Internal Medicine 02/18/23 Ravinder Jose MD Specialist Cardiology 02/11/23 Fabien Burgos NP Specialist Cardiology 02/11/23 Angelica Price MD [address] [place] [address] Specialist Cardiology 03/11/23 documented as of this encounter
--- OUTSIDE RECORDS SUMMARY | 2024-06-24 09:48 | XMS_ITS | Encounter Summary ---
Author Organization [facility] Address [address] [place] [address] Care Team Providers Care Mold Sander Name Role Phone Ravinder Jose MD Unavailable [phone] Fabien Burgos NP Unavailable [phone] Aram Modi MD Primary Care Provider Angelica Cardozo MD Unavailable Encounter Details Date Type Department Care Team Description 04/30/2023 SCAN Medical Records [address] [place] [id number] Abstract, Provider Social History Tobacco Use Types [...] Date/Time Associated Diagnosis Comments OUTSIDE LAB Routine 04/30/2023 documented in this encounter Results * OUTSIDE LAB (04/30/2023) Provider Abstract LAB documented in this encounter Visit Diagnoses Not on filedocumented in this encounter Care Teams Mold Sander Relationship Specialty Start Date End Date Aram Modi MD PCP - General Internal Medicine 02/18/23 Ravinder Jose MD Specialist Cardiology 02/11/23 Fabien Burgos NP Specialist Cardiology 02/11/23 Angelica Price MD [address] [address] Specialist Cardiology 03/11/23 documented as of this encounter
--- OUTSIDE RECORDS SUMMARY | 2024-06-24 09:48 | XMS_ITS | Encounter Summary ---
Author Organization [facility] Address [address] [place] [address] Care Team Providers Care Lab Technician Name Role Phone Aram Modi MD Primary Care Provider Yanet Gilmore, Pcp Primary Care Provider Unavailabl e Ravinder Jose MD Unavailable [phone] Fabien Burgos NP Unavailable [phone] Aram Modi MD Primary Care Provider Angelica Cardozo MD Unavailable [phone] Encounter Details Date Type Department Care Team Description 08/21/2017 Release of Information Medical Records [address] [place] [id number] Abstract, Provider Social History Tobacco Use Types [...] on filedocumented in this encounter Care Teams Lab Technician Relationship Specialty Start Date End Date Aram Modi MD PCP - General Internal Medicine 04/22/17 09/10/20 [facility], Pcp PCP - General Internal Medicine 09/11/20 02/17/23 Aram Modi MD PCP - General Internal Medicine 02/18/23 Ravinder Jose MD Specialist Cardiology 02/11/23 Fabien Burgos NP Specialist Cardiology 02/11/23 Angelica Price MD [address] [facility] [address] [place] [address] Specialist Cardiology 03/11/23 documented as of this encounter
--- OUTSIDE RECORDS SUMMARY | 2024-06-24 09:48 | XMS_ITS | Encounter Summary ---
Author Organization [facility] Address [address] [place] [address] Care Team Providers Care It Applications Developer Name Role Phone Gael Coffman MD Primary Care Provider Unavail able Aram Modi MD Primary Care Provider Yanet Gilmore Pcp Primary Care Provider UnavailRavinder Wallace MD Unavailable [phone] Fabien Burgos NP Unavailable [phone] Aram Modi MD Primary Care Provider Angelica Cardozo MD Unavailable [phone] Reason for Visit * Reason Onset Date Comments Mychart Rx Refill 09/18/2014 Encounter Details Date Type Department Care Team Description 09/18/2014 Pt. Non Urgent Medical Question Adult Medicine - [address] [address] Gael Coffman MD Social History Tobacco Use [...] Progress Notes * Vanessa Alanis L.P.N. - 09/19/2014 8:21 AM EDTFrom: Cy Velez To: Gael Coffman MD Sent: 09/18/2014 6:36 AM EDT Subject: RX Please renew my script for GABAPENTIN 300 MG 90 pcs. /[address] [facility] [address] Luis Felder. Thank You documented in this encounter Plan of Treatment Not on file documented as of this encounter Visit Diagnoses Not on filedocumented in this encounter Care Teams It Applications Developer Relationship Specialty Start Date End Date Gael Coffman MD PCP - General 06/10/01 04/21/17 Aram Modi MD PCP - General Internal Medicine 04/22/17 09/10/20 [facility] PCP - General Internal Medicine 09/11/20 02/17/23 Aram Modi MD PCP - General Internal Medicine 02/18/23 Ravinder Jose MD Specialist Cardiology 02/11/23 Fabien Burgos NP Specialist Cardiology 02/11/23 Angelica Price MD 300 [facility] [address] [place] [address] Specialist Cardiology 03/11/23 documented as of this encounter
--- OUTSIDE RECORDS SUMMARY | 2024-06-24 09:48 | XMS_ITS | Encounter Summary ---
Author Organization [facility] Address [address] [place] [address] Care Team Providers Care Senior Sales Consultant Name Role Phone Ravinder Jose MD Unavailable [phone] Fabien Burgos NP Unavailable [phone] Aram Modi MD Primary Care Provider Angelica Cardozo MD Unavailable [phone] Encounter Details Date Type Department Care Team Description 03/18/2023 SCAN Medical Records [address] [place] [address] Abstract, Provider Social History Tobacco Use Types [...] filedocumented in this encounter Care Teams Senior Sales Consultant Relationship Specialty Start Date End Date Aram Modi MD PCP - General Internal Medicine 02/18/23 Ravinder Jose MD Specialist Cardiology 02/11/23 Fabien Burgos NP Specialist Cardiology 02/11/23 Angelica Price MD [address] [address] Specialist Cardiology 03/11/23 documented as of this encounter
--- OUTSIDE RECORDS SUMMARY | 2024-06-24 09:49 | XMS_ITS | Encounter Summary ---
Author Organization [facility] Address [address] [place] [address] Care Team Providers Care Public Area Supervisor Name Role Phone Aram Modi MD Primary Care Provider Yanet Gilmore Pcp Primary [facility] Ravinder Salvador MD Unavailable [phone] Fabien Burgos NP Unavailable [phone] Aram Modi MD Primary Care Provider Unava Angelica Russell MD Unavailable Encounter Details Date Type Department Care Team Description 03/18/2018 Pt. Non Urgent Medic al Question Medicine/Pediatrics - [address] [address] Aram Modi MD Social History Tobacco Use [...] as of this encounter Progress Notes * Sarika Casanova Rn - 03/18/2018 9:11 AM EDTFrom: Cy Velez To: Aram Modi MD Sent: 03/18/2018 8:00 AM EDT Subject: Vitamin D Hi Dr. Chiu, Thank you for the follow-up with regard to my Vitamin D deficiency. It appears that I should be taking Vitamin D meds. Even though I got sufficient Sun, evidently I wasn't getting enough from food. Therefore, please advise what MG pills I should purchase and daily consumption. Shan Rebolledo documented in this encounter Plan of Treatment Not on file documented as of this encounter Visit Diagnoses Not on filedocumented in this encounter Care Teams Public Area Supervisor Relationship Specialty Start Date End Date Aram Modi MD PCP - General Internal Medicine 04/22/17 09/10/20 [facility] Pcp PCP - General Internal Medicine 09/11/20 02/17/23 Aram Modi MD PCP - General Internal Medicine 02/18/23 Ravinder Jose MD Specialist Cardiology 02/11/23 Fabien Burgos NP Specialist Cardiology 02/11/23 Angelica Price MD [address] [place] [address] Specialist Cardiology 03/11/23 documented as of this encounter
--- OUTSIDE RECORDS SUMMARY | 2024-06-24 09:49 | XMS_ITS | Encounter Summary ---
Author Organization [facility] Address [address] [place] [address] Care Team Providers Care Process Line Operator Name Role Phone Aram Modi MD Primary Care Provider Yanet Gilmore Pcp Primary Care Provider UnavailRavinder Wallace MD Unavailable [phone] Fabien Burgos NP Unavailable [phone] Aram Modi MD Primary Care Provider Angelica Cardozo MD Unavailable [phone] Encounter Details Date Type Department Care Team Description 04/15/2018 Transfer Records Medical Records [address] [place] [address] Abstract, Provider Social History Tobacco Use Types [...] on filedocumented in this encounter Care Teams Process Line Operator Relationship Specialty Start Date End Date Aram Modi MD PCP - General Internal Medicine 04/22/17 09/10/20 [facility], Pcp PCP - General Internal Medicine 09/11/20 02/17/23 Aram Modi MD PCP - General Internal Medicine 02/18/23 Ravinder Jose MD Specialist Cardiology 02/11/23 Fabien Burgos NP Specialist Cardiology 02/11/23 Angelica Price MD [address] [address] Specialist Cardiology 03/11/23 documented as of this encounter
--- OUTSIDE RECORDS SUMMARY | 2024-06-24 09:49 | XMS_ITS | Encounter Summary ---
Author Organization [facility] Address [address] [place] [address] Care Team Providers Care Floor Plan Adjuster Name Role Phone rAam Modi MD Primary Care Provider Yanet Gilmore Pcp Primary [facility] Ravinder Salvador MD Unavailable [phone] Fabien Burgos NP Unavailable [phone] Aram Modi MD Primary Care Provider Unava Angelica Russell MD Unavailable [phone] Encounter Details Date Type Department Care Team Description 03/03/2018 Orders Only Radiology - [place] [address] [place] [address] Jessee Shankar MD Screening for diabetes mellitus (Primary Dx) Social History Tobacco Use Types [...] documented as of this encounter Results * CREATININE, BLOOD ASSAY (03/13/2018 9:57 AM EDT) [facility] Signature CREAT 1.2 0.7 - 1.5 mg/dL 03/13/2018 2:00 PM EDT [facility] GFR > 60 >60 03/13/2018 2:00 PM EDT [facility] Comment: If patient is -Icelandic, multiply result by 1.21 Chronic Kidney Disease: < 60 ml/min/1.73 square meters Kidney Failure: < 15 ml/min/1.73 square meters 03/13/2018 9:57 AM EDT 03/13/2018 9:58 AM EDT Jessee Shankar MD LAB Performing Organization Address City/State/[facility] Co de Phone Number [facility] [address] [facility] documented in this encounter Visit Diagnoses Diagnosis Screening for diabetes mellitus- Primary documented in this encounter Care Teams Floor Plan Adjuster Relationship Specialty Start Date End Date Aram Modi MD PCP - General Internal Medicine 04/22/17 09/10/20 [facility], Pcp PCP - General Internal Medicine 09/11/20 02/17/23 Aram Modi MD PCP - General Internal Medicine 02/18/23 Ravinder Jose MD Specialist Cardiology 02/11/23 Fabien Burgos NP Specialist Cardiology 02/11/23 Angelica Price MD [address] [place] [address] Specialist Cardiology 03/11/23 documented as of this encounter
[2024-06-24 09:58] LABS: MANUAL DIFF FLAG NO
[2024-06-24 10:07] LABS: Basophils Percent Auto 0.6 % (0-2); Eosinophils Absolute Auto 0.1 X10*3/uL (0.0-0.4); Eosinophils Percent Auto 1.9 % (0-4); Hematocrit 37.3 % (42.0-52.0); Imm Gran Abs Auto 0.05 X10*3/uL (0.00-0.03); Imm Gran Pct Auto 0.7 % (0.0-0.4); Lymphocytes Absolute Auto 1.7 X10*3/uL (1.2-4.9); Lymphocytes Percent Auto 24.5 % (20-40); Mean Corpuscular HGB Conc 32.2 g/dl (31.0-36.0); Mean Corpuscular Hemoglobin 30.3 pg (27.0-33.0); Mean Corpuscular Volume 94.2 fL (80.0-98.0); Mean Platelet Volume 9.3 fL (9.4-12.4); Monocytes Absolute Auto 0.8 X10*3/uL (0.1-1.2); Monocytes Percent Auto 12.3 % (2-11); Neutrophils Absolute Auto 4.1 x10*3/uL (2.0-8.3); Platelet Count 200 X10*3/uL (160-400); Red Blood Count 3.96 X10*6/uL (4.60-5.80); White Blood Count 6.8 X10*3/uL (4.8-10.8)
[2024-06-24 10:51] LABS: Anion Gap 11 (12-20); Blood Urea Nitrogen 19 mg/dL (9-16); Calcium 9.3 mg/dL (8.4-10.2); Carbon Dioxide 27 mmol/L (22-29); Chloride 105 mmol/L (96-108); Estimated Glomerular Filt Rate 53; Glucose Random 104 mg/dL (60-115); Potassium 3.7 mmol/L (3.3-5.1); Sodium 139 mmol/L (135-145)
[2024-06-24 11:15] LABS: Estimated Average Glucose 120 mg/dL; Hemoglobin A1C 128.5573 umol/L; Hemoglobin A1c % 5.8 % (<6.0); Total Hemoglobin (HGBA1C) 3183.6614 umol/L
== END 2024-06-24 09:41 | disposition home or self-care (01) ==
LOC: HO.LAB 09:40
PROVIDERS: PCP Internal Medicine Sports Medicine; Visit Provider Orthopaedic Surgery
DX: Z01.818 Encounter for other preprocedural examination (principal); M17.11 Unilateral primary osteoarthritis, right knee; Z13.1 Encounter for screening for diabetes mellitus
CPT/HCPCS: 36415; 80048; 83036; 85025; 99212

== ENCOUNTER 2024-06-28 07:12 | Day surgery (SDC) | payer MEDICARE, SELFPAY ==
[2024-05-20 09:55] VITALS: BP 109/59; PULSE 60; RESP 16; O2SAT 97; BMI 29.7
--- NOTE | 2024-05-20 10:33 | HO.ANESPROP2 ---
Documented by User: Stacy Simmons NP 06/16/24 14:48 HPI - Anesthesia Eval Consult details Narrative: 83yo M for Right Knee Replacement Total, 06/28/24 Follows [facility] for nonischemic CMP, heart blocks. Optimized for surgery with neg LE US for DVT Medically optimized per [facility] preop clinic. Recommend to continue aspirin periop No recent illness No CP/SOB with cardiac rehab twice weekly BiV pacer in situ 02/2023 - not pacer dependant PMR - prednisone 1mg QOD, recommended stress dose CORI - CPAP QHS CKD 3 - Follows [facility]. Last office visit 04/2024. Kidney function stable. 1.5 L fluid restriction s/p Left lobectomy ~ 18 years ago r/t cancer PMFSH Active Problems Active Problems: All Active Problems Arthritis of right knee (Acute) Right knee pain (Acute) Past Medical History Medical History Arthritis Back pain Anemia Hiatal hernia Murmur Scarlet fever Hyperlipidemia Chronic rhinitis Elevated PSA Thyroid disease HTN (hypertension) Gout CKD (chronic kidney disease) stage 3, GFR 30-59 ml/min Sleep apnea Internal hemorrhoids Polymyalgia rheumatica Chronic pruritus Lung cancer Functional diarrhea Osteoarthritis BPH (benign prostatic hyperplasia) Serrated polyp of colon Cystic mass of pancreas IBS (irritable bowel syndrome) Venous insufficiency of both lower extremities PVC (premature ventricular contraction) Cardiomyopathy Chest pain 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 Second degree heart block Cardiac resynchronization therapy pacemaker (BACK END WEB DEVELOPER-P) in place Family History Family history of problems with anesthesia: No Surgical History Surgical History H/O hemorrhoidectomy Hx of lumbosacral spine surgery Hx of bilateral cataract extraction Hx of removal of cyst Hx of inguinal hernia repair Hx of cholecystectomy H/O colonoscopy History of esophagogastroduodenoscopy (EGD) History of lobectomy of lung History of permanent cardiac pacemaker placement Hx of arthroscopy of left knee Hx of cardiac catheterization History of Problems with Anesthesia: No Social History Social History Are you a primary in home caregiver to a significant other at home: No Do you presently have visiting nurse or other home services: No Patient Tobacco Use Status: Former Tobacco user Use of substances other than those prescribed or required for medical reasons: No Have you been hit, kicked, punched, or otherwise hurt by someone within the past year? If so, by whom?: No Are you DNR?: No Advance Directives: No Advance Directives Information Provided: No Advance Directives on File: No Recently lost weight without trying: No Eating poorly because of decreased appetite: No Nutrition Risks: No Nutritional Risk Poor oral hygiene: No Meds Allergies Allergy/AdvReac Type Severity Reaction Status Date / Time lactose [LACTOSE] Allergy Severe Diarrhea Verified 06/28/24 07:25 morphine [MORPHINE] Allergy Intermediate INVOLUNTARY Verified 06/28/24 07:25 SPASMS atenolol AdvReac Intermediate Nausea Verified 06/28/24 07:25 Home Medications ?Medication ?Instructions ?Recorded ?Confirmed ?Last Taken ?Type atorvastatin 40 mg tablet 40 mg PO QPM 11/04/23 06/24/24 Unknown History carvedilol 6.25 mg tablet 6.25 mg PO BID 11/04/23 06/24/24 06/28/24 History finasteride 5 mg tablet 5 mg PO DAILY 11/04/23 06/24/24 Unknown History omeprazole 20 mg capsule,delayed 20 mg PO DAILY 11/04/23 06/24/24 06/28/24 History release prednisone 1 mg tablet 1 mg PO Q OTHER DAY 11/04/23 06/24/24 06/28/24 History sacubitril 49 mg-valsartan 51 mg 1 tab PO BID 11/04/23 06/24/24 Unknown History tablet (Entresto) tamsulosin 0.4 mg capsule 0.4 mg PO BEDTIME 11/04/23 06/24/24 Unknown History allopurinol 100 mg tablet 150 mg PO DAILY 05/17/24 06/24/24 Unknown History aspirin 81 mg tablet,delayed 81 mg PO DAILY 05/17/24 06/24/24 06/24/24 History release eplerenone 50 mg tablet 50 mg PO DAILY 05/17/24 06/24/24 06/28/24 History hydrochlorothiazide 12.5 mg tablet 12.5 mg PO DAILY 05/20/24 06/24/24 Unknown History levothyroxine 88 mcg tablet 88 mcg PO QAM 05/20/24 06/24/24 06/28/24 History Exam Height,Weight and Vital Signs: Height 5 ft 5 in Weight 80.921 kg Last Vital Signs Pulse 60 05/20/24 09:55 Resp 16 05/20/24 09:55 BP 109/59 L 05/20/24 09:55 Pulse Ox 97 05/20/24 09:55 O2 Del Method Room Air 05/20/24 09:55 Pertinent Lab Results Pertinent Lab Results: Results review: ?Lab results : Results? 05/14/2024 8:42 EST ? ? ?WBC ? 10.8 k/mm3 ?RBC ? 3.64 m/mm3 ?L?Hgb ? 11.4 Gm/dL ?L?Hct ? 34.8 % ?L?MCV ? 95.6 femtoliters ?H? MCH ? 31.3 pg ?MCHC ?32.8 Gm/dL ?L? Platelet Count ?206 k/mm3 ?RDW-SD ?50.0 femtoliters ?H? MPV ? 9.5 femtoliters ? Nucleated RBC (Automated) 0.0 #/100 WBC'S ? Abs. NRBC ? 0.0 k/mm3 ?Abs. Neut ? 8.2 k/mm3 ?H? Abs. Lymph ?1.2 k/mm3 ? Abs. Blaine ? 1.2 k/mm3 ? Abs. Eo ? 0.2 k/mm3 ? Abs. Baso ? 0.0 k/mm3 ? Neut % ?75.8 % ?Lymph % ? 11.1 % ?L?Blaine % ?10.8 % ?H? Eos % ? 1.4 % ? Baso % ?0.3 % ? Imm Gran ?0.6 % ? Abs. Imm Gran ? 0.1 k/mm3 ? Hold Blue Top ? SPECIMEN DISCARDED AFTER 4 HOURS. ? Sodium ?142 mmol/L ? Potassium ? 4.4 mmol/L ? Chloride ?106 mmol/L ? Bicarbonate Level ? 25 mmol/L ? Anion Gap ? 11 ?Glucose Level ? 111 mg/dL ?H? BUN ? 20 mg/dL ?Creatinine-Blood ?1.30 mg/dL ?H? Estimated GFR Creatinine ?55 ML/MIN/1.73 M2 ? Calcium ? 9.3 mg/dL ? Nt-Probnp ? 203 pg/mL ? High Sensitivity Troponin (HSTnT) ? 16 ng/L ? Narrative Narrative: EKG 04/2024 at cardiology visit AV dual paced rhythm @ 60bmp Vascular US Duplex LLE 04/2024 No evidence of DVT Pacer interrogation 04/2024 on chart. Nml device function, no events, not pacer dependant ECHO 2023 1. Nml LV chamber size. Mild conc LVH. Basal inferior wall hypokinesis. Nml LV sys function. LVEF 50-55% 2. Nml RV size and function. 3. No hemodynamic signif valve dysfunction 4. No prior study avail for direct comparison. EF better from 2022 report from outside facility Airway Mallampati Class: III TM Dist: >3cm Neck ROM: Full Denture: Upper Loose/Missing/Broken Teeth: Yes (left lower side tooth loose) Heart: RRR Lungs: CTAB Assessment and Plan Assessment Anesthesia Assessment: Anesthesia Plan Discussed and PAT Visit Final Anesthetic Review Family History of Problems with Anesthesia: No History of Problems with Anesthesia: No Documented by User: Lupis Kendrick MD 06/28/24 08:15 [facility] Past Medical History Medical History Arthritis Back pain Anemia Hiatal hernia Murmur Scarlet fever Hyperlipidemia Chronic rhinitis Elevated PSA Thyroid disease HTN (hypertension) Gout CKD (chronic kidney disease) stage 3, GFR 30-59 ml/min Sleep apnea Internal hemorrhoids Polymyalgia rheumatica Chronic pruritus Lung cancer Functional diarrhea Osteoarthritis BPH (benign prostatic hyperplasia) Serrated polyp of colon Cystic mass of pancreas IBS (irritable bowel syndrome) Venous insufficiency of both lower extremities PVC (premature ventricular contraction) Cardiomyopathy Chest pain 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 Second degree heart block Cardiac resynchronization therapy pacemaker (BACK END WEB DEVELOPER-P) in place Surgical History Surgical History H/O hemorrhoidectomy Hx of lumbosacral spine surgery Hx of bilateral cataract extraction Hx of removal of cyst Hx of inguinal hernia repair Hx of cholecystectomy H/O colonoscopy History of esophagogastroduodenoscopy (EGD) History of lobectomy of lung History of permanent cardiac pacemaker placement Hx of arthroscopy of left knee Hx of cardiac catheterization Social History Social History Are you a primary in home caregiver to a significant other at home: No Do you presently have visiting nurse or other home services: No Patient Tobacco Use Status: Former Tobacco user Use of substances other than those prescribed or required for medical reasons: No Have you been hit, kicked, punched, or otherwise hurt by someone within the past year? If so, by whom?: No Are you DNR?: No Advance Directives: No Advance Directives Information Provided: No Advance Directives on File: No Recently lost weight without trying: No Eating poorly because of decreased appetite: No Nutrition Risks: No Nutritional Risk Poor oral hygiene: No Meds Allergies Allergy/AdvReac Type Severity Reaction Status Date / Time lactose [LACTOSE] Allergy Severe Diarrhea Verified 06/28/24 07:25 morphine [MORPHINE] Allergy Intermediate INVOLUNTARY Verified 06/28/24 07:25 SPASMS atenolol AdvReac Intermediate Nausea Verified 06/28/24 07:25 Home Medications ?Medication ?Instructions ?Recorded ?Confirmed ?Last Taken ?Type atorvastatin 40 mg tablet 40 mg PO QPM 11/04/23 06/24/24 Unknown History carvedilol 6.25 mg tablet 6.25 mg PO BID 11/04/23 06/24/24 06/28/24 History finasteride 5 mg tablet 5 mg PO DAILY 11/04/23 06/24/24 Unknown History omeprazole 20 mg capsule,delayed 20 mg PO DAILY 11/04/23 06/24/24 06/28/24 History release prednisone 1 mg tablet 1 mg PO Q OTHER DAY 11/04/23 06/24/24 06/28/24 History sacubitril 49 mg-valsartan 51 mg 1 tab PO BID 11/04/23 06/24/24 Unknown History tablet (Entresto) tamsulosin 0.4 mg capsule 0.4 mg PO BEDTIME 11/04/23 06/24/24 Unknown History allopurinol 100 mg tablet 150 mg PO DAILY 05/17/24 06/24/24 Unknown History aspirin 81 mg tablet,delayed 81 mg PO DAILY 05/17/24 06/24/24 06/24/24 History release eplerenone 50 mg tablet 50 mg PO DAILY 05/17/24 06/24/24 06/28/24 History hydrochlorothiazide 12.5 mg tablet 12.5 mg PO DAILY 05/20/24 06/24/24 Unknown History levothyroxine 88 mcg tablet 88 mcg PO QAM 05/20/24 06/24/24 06/28/24 History Assessment and Plan Final Anesthetic Review NPO: Yes ASA Class: III Final Preanesthetic Review: No Changes in Pt Med Stat, Meds/Allgs Chart Reviewed, Consent Obtained/Reviewed and Anes Risks/Benef Reviewed Patient Risk: Intermediate Procedure Risk: Intermediate Anesthetic Plan Anesthetic Plan: MAC:, Spinal, Regional Block and Agree w/ Assess. and Plan Disposition: Standard PACU
[2024-05-20 12:55] LABS: MRSA Nasal PCR NEGATIVE (Negative); SA Nasal PCR NEGATIVE (Negative)
[2024-06-28] VITALS (12 sets, daily range): BP systolic 96–132; BP diastolic 51–66; PULSE 59–75; RESP 15–20; TEMP 36.2–36.6; O2SAT 95–99; BMI 29.4
--- OUTSIDE RECORDS SUMMARY | 2024-06-28 07:21 | XMS_ITS | Clinical Summary ---
Author Organization [facility] Address [address] [address] Phone Care Team Providers Care Telesales Advisor Name Role Phone Aram Modi MD Primary Care Provider [phone] Allergies Active Allergy Reactions Criticality Noted Date [...] 04/09/2023 Overview (04/09/2023): Done on 02/03/2023 at [facility] indications:CHF Multiple premature ventricular complexes 021 04/09/2023 [...] sleep apnea 03/29/2014 04/09/20 23 Overview (04/09/2023): [facility] Home Polysomnogram: Date 02/13/2017; AHI 12, [...] Office Visit [facility] [address] [facility] [address] [place] [phone] Abhishek Haynes MD Stage 3a chronic kidney disease (HCC) (Primary Dx); Hypertension; Heart failure with reduced ejection fraction (HCC) 04/27/2024 Orders Only [facility] [address] [facility] [address] [place] [phone] Abhishek Haynes MD from Last 3 Months [...] Visit [facility] [address] [address] Abhishek Haynes MD [address] [address] Health Maintenance Due Date Last [...] Creatinine, Ur 44.9 Not Estab. mg/dL [facility] Urine Microalbumin <3.0 Not Estab. ug/mL [facility] Microalbumin/Crea tinine Ratio <7 0 - 29 mg/g creat [facility] Comment: ? Normal: ?0 - ??29 ? Moderately increased: 30 - 300 ? Severely increased: ? >300 04/27/2024 12:5 1 PM EST 04/27/2024 us Abhishek Haynes MD LAB URINE ORDERABLES Final Resul t Performing Organization Address [facility] Co de Phone Number [facility] [address] [place] [address] * (ABNORMAL) Vitamin D 25 Hydroxy (04/27/2024 12:51 PM EST) Vitamin D, 25-OH, Total 27.0(L) 30.0 - 100.0 ng/mL [facility] Comment: Vitamin D deficiency has been defined by the [place] of Medicine and an Endocrine Society practice guideline as a level of serum 25-OH vitamin D less than 20 ng/mL (1,2). The Endocrine Society went on to further define vitamin D insufficiency as a level between 21 and 29 ng/mL (2). 1. IOM ([place] of Medicine). 2010. Dietary reference ?? intakes for calcium and D. [place]: The ?? [employer]. 2. Soheila MF, Samantha LAWSON, Vanda BURGESS, et al. ?? Evaluation, treatment, and prevention of vitamin D ?? deficiency: an Endocrine Society clinical practice ?? guideline. JCEM. 2010; 96(7):1911-30. 04/27/2024 12:5 1 PM EST 04/27/2024 us Abhishek Haynes MD LAB BLOOD ORDERABLES Final Resul t Performing Organization Address [facility] Co de Phone Number [facility] [address] [place] [address] * (ABNORMAL) PTH, Intact (04/27/2024 12:51 PM EST) PTH 80(H) 15 - 65 pg/mL [facility] 04/27/2024 12:5 1 PM EST 04/27/2024 us Abhishek Haynes MD LAB BLOOD ORDERABLES Final Resul t Performing Organization Address [facility] Co de Phone Number [facility] [address] [place] [address] * (ABNORMAL) Renal Function Panel (04/27/2024 12:51 PM EST) Glucose 102(H) 70 - 99 mg/dL [facility] BUN 36(H) 8 - 27 mg/dL [facility] Creatinine 1.41(H) 0.76 - 1.27 mg/dL [facility] eGFR CKD-EPI CR 2020 49(L) >59 mL/min/1.7 3 [facility] BUN/Creatinine Ratio 26(H) 10 - 24 [facility] Sodium 140 134 - 144 mmol/L [facility] Potassium 4.5 3.5 - 5.2 mmol/L [facility] Chloride 103 96 - 106 mmol/L [facility] Bicarbonate (CO2) 21 20 - 29 mmol/L [facility] Calcium 9.1 8.6 - 10.2 mg/dL [facility] Phosphorus 3.2 2.8 - 4.1 mg/dL [facility] Albumin 4.3 3.7 - 4.7 g/dL [facility] 04/27/2024 12:5 1 PM EST 04/27/2024 us Abhishek Haynes MD LAB BLOOD ORDERABLES Final Resul t [facility] [address] [place] [address] from Last 3 Months Insurance MEDICARE [facility] MEDICARE [facility] Care Teams Telesales Advisor Relationship Specialty Start Date End Date Aram Modi MD [address] [place] [address] PCP - General Internal Medicine 04/09/23
--- OUTSIDE RECORDS SUMMARY | 2024-06-28 07:21 | XMS_ITS | Clinical Summary ---
Author Organization [facility] Address [address] [place] [address] Care Team Providers Care Embroidery Cutter Name Role Phone Gael Coffman MD Primary Care Provider [phone] Allergies Active Allergy Reactions Criticality Noted Date [...] age to complete this topic Care Teams Embroidery Cutter Relationship Specialty Start Date End Date Gael Coffman MD PCP - General Endocrinology 12/19/16
--- OUTSIDE RECORDS SUMMARY | 2024-06-28 07:21 | XMS_ITS | Clinical Summary ---
Author Organization [address] [place] [address] [place] [phone] Phone Care Team Providers Care Fire Prevention Research Engineer Name Role Phone Aram Modi MD Primary Care Provider Allergies Active Allergy Reactions Criticality Noted Date Comments Morphine 08/06/2005 CONVULSIONS Medications allopurinoL (ZYLOPRIM) 100 mg tablet Take 1.5 tablets (150 mg total) by mouth 1 (one) time each day. 7 Active aspirin 81 mg EC tablet Take 1 tablet (81 mg total) by mouth 1 (one) time each day. 6 Active atorvastatin (LIPITOR) 40 mg tablet Take 1 tablet (40 mg total) by mouth 1 (one) time each day. 3 Active carvediloL (COREG) 6.25 mg tablet Take 1 tablet (6.25 mg total) by mouth 2 (two) times a day with meals. 4 Active eplerenone (INSPRA) 50 mg tablet Take 1 tablet (50 mg total) by mouth 1 (one) time each day. 7 Active finasteride (PROSCAR) 5 mg tablet Take 1 tablet (5 mg total) by mouth 1 (one) time each day. Active levothyroxine (SYNTHROID, LEVOTHROID) 75 mcg tablet Take 1 tablet (75 mcg total) by mouth 1 (one) time each day. 7 Active omeprazole (PriLOSEC) [address] capsule Take 1 capsule (20 mg total) by mouth 1 (one) time each day. 6 Active predniSONE (DELTASONE) 1 mg tablet Take by mouth. 3 tab twice a day for 3 days, then 2 tab twice a day for 3 days, then one tab twice a day 1 Active tamsulosin (FLOMAX) 0.4 mg 24 hr capsule Take 1 capsule (0.4 mg total) by mouth 1 (one) time each day. Take 30 mins after same meal every day. - 7 Active hydroCHLOROthiazide (HYDRODIURIL) 25 mg tablet Take 1 tablet (25 mg total) by mouth 1 (one) time each day. 90 tablet 1 4 Active levothyroxine (SYNTHROID, LEVOTHROID) 88 mcg tablet Take by mouth 1 (one) time each day before breakfast. Active sacubitriL-valsarta n (Entresto) 49-51 mg per tabletIndications:O ther cardiomyopathy (CMS/HCC) Take 1 tablet by mouth 2 (two) times a day. 180 tablet 3 4 Active Active Problems Problem Noted Date Diagnosed [...] 12 lead Coronary artery disease invo lving [place] coronary artery of [place] heart without angina pectoris 02/18/2023 Cardiomyopathy 02/17/2023 [...] 08/26/2014 Obstructive sleep apnea 03/29/2014 Overview (03/04/2024): [facility] Home Polysomnogram: Date 02/13/2017; AHI 12, Unclassified [...] Description 05/25/2024 7:30 PM EST Ancillary Procedure [facility] - [address] [place] [address] 05/20/2024 Telephone [facility] [address] [place] [address] Aram Modi MD Medical Records 05/18/2024 7:30 AM EST Ancillary Procedure [facility] [address] [place] [phone] Suspected DVT (deep vein thrombosis); Chest pain on breathing 05/17/2024 1:30 PM EST Consult [facility] [address] [place] [address] Brooklynn Church MD Other cardiomyopathy (CMS/HCC) (Primary Dx); Primary hypertension; Pure hypercholesterolemia; Stage 3 chronic kidney disease, unspecified whether stage 3a or 3b CKD ([facility]/HCC); Polymyalgia rheumatica ([facility]); Second degree heart block; Suspected DVT (deep vein thrombosis); Chest pain on breathing 05/13/2024 Telephone [facility] [address] [place] [address] Brooklynn Church MD 05/06/2024 Telephone [facility] [address] [place] [address] Brooklynn Church MD medication 04/28/2024 Telephone [facility] [address] [place] [address] Aram Modi MD Medical Records 04/20/2024 8:30 AM EST Ancillary Procedure [facility] - [address] [place] [phone] Encounter for adjustment or management of cardiac device 04/20/[address] [facility] [address] [place] [phone] Ricardo Gardner RN from Last 3 Months Immunizations Name Administration Dates Next Due Influenza Quadravalent, 0.5m l (Fluad) 65yo and older 04/15/2022 Influenza trivalent, 0.5mL ( Fluad) 65yo and older 02/14/2020,02/17/2017 Influenza trivalent, 0.5mL, preservative free (Fluarix; FluLaval; Fluzone) ages 6mo and older (Afluria) 3 years and older 02/27/2015,05/02/2014,04/01/2012,02/07,03/22/2008,03/22/2005 Influenza, Unspecified 03/16/2019,02/26/2016 PPD Test 06/23/2000 [place] SARS-CoV-2 COVID-19, mRNA, LNP-S, preservative free 07/23/2020,06/25/2020 Pneumococcal conjugate 13 va lent (Prevnar 13, PCV13) 2mo and older 11/02/2014 Pneumococcal polysaccharide 23 valent (Pneumovax 23) 2yo and older 09/16/2013,01/15/2002 Td Tetanus diptheria (Tdvax) 7yo and older 11/29/2008 Tdap Tetanus diptheria acell ular pertussis (Boostrix; Adacel) 7yo and older 05/17/2016 Zoster Live 12/24/2013 Surgical History Surgery Date Site/Laterality Comments OTHER SURGICAL HISTORY 2004 PROCEDURE: AK RMVL LUNG OTHER THAN PNEUMONECTOMY 1 LOBE LOBECT; COMMENT: LLL for Ca OTHER SURGICAL HISTORY 05/22/12 PROCEDURE: NUCLEAR STRESS TEST REPORT; COMMENT: [facility], Htfd, Neg OTHER SURGICAL HISTORY 01/30 PROCEDURE: OUTSIDE NUCLEAR STRESS TEST; COMMENT: neg OTHER SURGICAL HISTORY 01/30 PROCEDURE: CTA CHEST; W/WO CONTRAST MAT; COMMENT: neg COLONOSCOPY 06/29/04 PROCEDURE: HISTORICAL COLONOSCOPY; COMMENT: Nataly perry COLONOSCOPY 03/01 [facility] PROCEDURE: HISTORICAL COLONOSCOPY; COMMENT: devika Shipley; otherwise normal to terminal ileum with normal colonic bxys. UPPER GASTROINTESTINAL ENDOSCOPY 03/01 [facility] PROCEDURE: AK UPPER GI ENDOSCOPY PERFORMED; COMMENT: NOrmal, with normal duodenal biopsies UPPER GASTROINTESTINAL ENDOSCOPY 12/26/2010 PROCEDURE: AK UPPER GI ENDOSCOPY PERFORMED; COMMENT: Minimal erosive [...] dise ase) stage 3, GFR 30-59 ml/min ([facility]); COMMENT: GFR 53 on 08/18/12. 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 DX:Cysti c mass of pancreas Elevated PSA 11/29/2008 DX:Elevated PSA; COMMENT: Douglas; Bx; neg 06/27 Functional diarrhea 09/12/2016 DX:Functiona l diarrhea Gout 08/18/2012 DX:Gout History of lung cancer 12/08/2015 DX:Histor y of lung cancer; COMMENT: NSC, s/p lobectomy,Chema; Maria Guadalupe; 07/21;left lower lobe Hyperlipidemia 08/06/2005 DX:Hyperlipidemi a Hypertension 11/28/2011 DX:Hypertension; COMMENT: Overview: Hypertensive disorder Hypothyroid 03/28/2008 DX:Hypothyroid IBS (irritable bowel syndrome) 04/14/2018 D X:IBS (irritable bowel syndrome) Internal hemorrhoids with complication 05/22/2015 DX:Internal hemorrhoids with complication Irritable bowel syndrome (IBS) 04/14/2018 D X:Irritable bowel syndrome (IBS) Obstructive sleep apnea 03/29/2014 DX:Obstr uctive sleep apnea; COMMENT: [facility] Home Polysomnogram: Date 02/13/2017; AHI 12, Unclassified [...] at Not on file Legal Sex Male 11:41 AM EST Gender Identity Not on file Sexual Orientation Not on file Obstetrics History Last Filed [...] Description 10/28/2024 9:10 AM EDT Office Visit [facility] Cardiology [facility] [place] [address] [place] [phone] Fabien Burgos NP [address] [place] [address] [address] [place] [address] 04/20/2025 8:00 AM EST Ancillary Procedure [facility] Cardiology [facility] [address] [facility] [address] [place] [phone] Health Maintenance Due Date Last Done Comments [...] or Tdap) 05/17/2026 05/17/2016, 11/29/2008 Pneumococcal Vaccine: 50+ Years Completed 11/02/2014, 06/07/2014, 09/16/2013, Additional history [...] this topic Medical Devices Implanted Type Area Mash Filter Cloth Changer Device Identifier Shelf Expiration Date Model / Serial / Lot Bsci-Crm [id number] Implanted:02/16 (Quantity not on file) Cardiac REMELT OPERATOR-P [place] SCI CARD RHYTHM MGMT [id number] / [id number] / Procedures Procedure Name Priority Date/Time Associated [...] 7:29 PM EST) Date Time Interrogation Session [id number] CV DEVICE CHECK Type Interrogation Session Remote Scheduled CV DEVICE CHECK Implantable Pulse Generator Mash Filter Cloth Changer BSX CV DEVICE CHECK Implantable Pulse Generator Type REMELT OPERATOR-P CV DEVICE CHECK Implantable Pulse Generator Model U128 CV DEVICE CHECK Implantable Pulse Generator Serial Number [id number] CV DEVICE CHECK Implantable Pulse Generator Implant Date 20230305 CV DEVICE CHECK Battery Remaining Percentage 100.00 CV DEVICE CHECK Battery Remaining Longevity 114.0 CV DEVICE CHECK Battery Status Beginning of Service CV DEVICE CHECK Ayan Statistic RA Percent Paced 41.00 CV DEVICE CHECK Ayan Statistic RV Percent Paced 100.00 CV DEVICE CHECK REMELT OPERATOR Statistic LV Percent Paced 100.00 CV DEVICE CHECK Atrial Tachy Statistic AT/AF [place] Percent 0.00 CV DEVICE CHECK Lead Channel [...] CV DEVICE CHECK Ventricular chambers paced during REMELT OPERATOR pacing. BiV CV DEVICE CHECK Ayan Setting Lower Rate Limit 60 CV DEVICE CHECK Ayan Setting AT Mode Switch Rate 170 CV DEVICE CHECK Ayan Setting Maximum Tracking Rate 130 CV DEVICE CHECK Ayan Setting Maximum Sensor Rate 130 CV DEVICE CHECK Ayan Setting PAV Delay 150 CV DEVICE CHECK Ayan Setting SUZY Delay 100 CV DEVICE CHECK REMELT OPERATOR LV-RV Delay 0 CV D EVICE [...] Histograms reviewed * No significant changes noted us Darleen FISCHER CV IMPLANTABLE CARDIAC DEVICE AK OCEDURES Final Result * Vascular US duplex lower extremity venous [...] the left leg. The vessels showed compressibility. Game Farm Supervisor Details A call scale, color and doppler analysis ultrasound was performed. During the study longitudinal and transverse views were obtained. Pulsed wave doppler was performed. us Brooklynn Church MD CV VASCULAR PROCEDURES Final R esult * ECG 12 lead (05/17/2024 1:22 PM EST) Ventricular Rate ECG 60 BPM GEMUSE Atrial Rate 60 BPM GEMUSE P-R Interval 178 ms GEMUSE QRS Duration 140 ms GEMUSE Q-T Interval 466 ms GEMUSE QTc 466 ms GEMUSE P Wave Maxwell 25 degrees GEMUSE R Maxwell 0 degrees GEMUSE T Maxwell 82 degrees GEMUSE ECG Interpretation AV dual-paced rhythm Abnormal ECG When compared with ECG of 27-AUG-2004 14:55, Electronic ventricular pacemaker has replaced Sinus rhythm Confirmed by BROOKLYNN CHURCH ([id number]) on 05/17/2024 2:55:34 PM GEMUSE 05/17/2024 1:22 PM EST 05/17/2024 2:55 PM EST us Brooklynn Church MD ECG ORDERABLES Final Result GEMUSE * CARDIAC DEVICE CHECK- IN CL[facility]- [facility] (04/20/2024 8:31 AM EST) Date Time Interrogation Session [id number] CV DEVICE CHECK Implantable Pulse Generator Mash Filter Cloth Changer BSX CV DEVICE CHECK Implantable Pulse Generator Type REMELT OPERATOR-P CV DEVICE CHECK Implantable Pulse Generator Model U128 CV DEVICE CHECK Implantable Pulse Generator Serial Number [id number] CV DEVICE CHECK Implantable Pulse Generator Implant [...] CV DEVICE CHECK Ventricular chambers paced during REMELT OPERATOR pacing. BiV CV DEVICE CHECK Ayan [...] Parameters were evaluated Order Referral Cardiovascular CV IMPLANTABLE CAR DIAC DEVICE PROCEDURES Final Result * Annual BMP Blood Test (12/02/2022) Pathologist [facility] Annual BMP Blood Test abstracted Historical Provider HEALTH MAINTENANCE Final Result * (ABNORMAL) Lipid panel (09/28/2019) Pathologist [facility] LDL/HDL Ratio 4 0 - 4 Triglycerides 290(A) 0 - 150 mg/dL Cholesterol 192 0 - 200 mg/dL HDL 51 >=40 mg/dL LDL Cholesterol 83 0 - 100 mg/dL Blood Venous blood specimen / Unknown Historical Provider LAB BLOOD ORDERABLES Frida l Result from Last 3 Months or Most Recently Relevant to Health Maintenance Insurance MEDICARE [facility] Care Teams Fire Prevention Research Engineer Relationship Specialty Start Date End Date Aram Modi MD [address] [address] PCP - General 04/22/17
--- OUTSIDE RECORDS SUMMARY | 2024-06-28 07:21 | XMS_ITS | Encounter Summary ---
Author Organization [facility] Address [address] [place] [address] Care Team Providers Care Worm Farmer Name Role Phone Aram Modi MD Primary Care Provider + [phone] Reason for Visit * Reason Onset Date Comments Medical Records 05/20/2024 Encounter Details Date Type Department Care Team (Late st Contact Info) Description 05/20/2024 Telephone [facility] [address] [place] [phone] Aram Modi MD [address] [address] Medical Records Social History Tobacco [...] on file Sexual Orientation Not on file documented as of this encounter Progress Notes * Stephy Fulton - 06/18/2024 4:54 PM EST Faxed last office note, EKG, device check and holter report to [facility] Att: Clarisa at [phone] on 05/20/2024 documented in this encounter Plan of Treatment Upcoming Encounters Date Type Department Care Team (Late st Contact Info) Description 10/28/2024 9:10 AM EDT Office Visit [facility] - [facility] [address] [place] [address] Fabien Burgos NP [address] [place] [address] [address] [place] [address] 04/20/2025 8:00 AM EST Ancillary Procedure [facility] [address] [place] [phone] documented as of this encounter Visit Diagnoses Not on filedocumented in this encounter Care Teams Worm Farmer Relationship Specialty Start Date End Date Aram Modi MD [address] [address] PCP - General 04/22/17 documented as of this encounter
--- OUTSIDE RECORDS SUMMARY | 2024-06-28 07:21 | XMS_ITS | Encounter Summary ---
Author Organization [facility] Address [address] [place] [address] Care Team Providers Care Nursing Home Aide Name Role Phone Aram Modi MD Primary Care Provider + [phone] Reason for Visit * Reason Onset Date Comments Medical Records 04/28/2024 Encounter Details Date Type Department Care Team (Late Contact Info) Description 04/28/2024 Telephone [facility] [address] [place] [phone] Aram Modi MD [address] [address] Medical Records Social History Tobacco [...] 5:01 PM EST Faxed Holter results to [facility] Pre[facility] Dept. At [phone] on 04/28/2024 documented in this encounter Plan of Treatment Upcoming Encounters Date Type Department Care Team (Late st Contact Info) Description 10/28/2024 9:10 AM EDT Office Visit [facility] [address] [place] [address] Fabien Burgos NP [address] [place] [address] [address] [place] [address] 04/20/2025 8:00 AM EST Ancillary Procedure [facility] [address] [place] [address] documented as of this encounter Visit Diagnoses Not on filedocumented in this encounter Care Teams Nursing Home Aide Relationship Specialty Start Date End Date Aram Modi MD [address] [address] PCP - General 04/22/17 documented as of this encounter
--- OUTSIDE RECORDS SUMMARY | 2024-06-28 07:21 | XMS_ITS | Encounter Summary ---
Author Organization [facility] Address [address] [place] [address] Care Team Providers Care Farm Implement Engine Mechanic Name Role Phone Aram Modi MD Primary Care Provider + [phone] Reason for Visit * Reason Onset Date Comments medication 05/06/2024 Encounter Details Date Type Department Care Team (Late st Contact Info) Description 05/06/2024 Telephone [facility] Cardiology [address] [place] [address] Ravinder Jose MD [address] [place] [address],[address] [address] medication Social History Tobacco Use Types Packs/Day [...] of this encounter Ordered Prescriptions Prescription Sig Dispense Quantity Refills Last Filled Start Date End Date hydroCHLOROthiazide (HYDRODIURIL) 25 mg tablet Take 1 tablet (25 mg total) by mouth 1 (one) time each day. 90 tablet 1 05/06/2024 documented in this encounter Progress Notes * Shanna Marin RN - 05/06/2024 2:56 PM EST Discussed with [facility]. Hydrochlorothiazide 25 mg tab QD sent to [facility]. Pt informed. I left a detailed message [...] refill HCTZ 25 mg tab daily to [facility] for pt? * Damaris Hicks - 05/06/2024 [...] needs refills. Please call her back at [phone] documented in this encounter Plan of Treatment Upcoming Encounters Date Type Department Care Team (Late st Contact Info) Description 10/28/2024 9:10 AM EDT Office Visit [facility] [address] [facility] [address] [place] [address] Fabien Burgos NP [address] [place] [address] [address] [place] [address] 04/20/2025 8:00 AM EST Ancillary Procedure [facility] - [address] [facility] [address] [place] [address] documented as of this encounter Visit Diagnoses Not on filedocumented in this encounter Discontinued Medications Medication Sig Discontinue Reason Start Date End Da te furosemide (LASIX) 40 mg tablet Take 1 tablet (40 mg total) by mouth 1 (one) time each day. For 360 days Prescriber Discontinued 11/05/2023 05/06/2024 documented as of this encounter Care Teams Farm Implement Engine Mechanic Relationship Specialty Start Date End Date Aram Modi MD [address] [address] PCP - General 04/22/17 documented as of this encounter
[2024-06-28] MEDS: Lactated Ringers 1,000 ML 50 ML IVCONT (08:22)
--- NOTE | 2024-06-28 12:10 | P.BOP_ITS ---
Brief Operative Note Date of Service: 06/28/24 Pre-op diagnosis: Right knee degenerative joint disease Post-op diagnosis: same Procedure: Right total knee arthroplasty Implants: [place] Triathlon cemented posterior stabilized total knee arthroplasty with a femoral component size 5 right, tibial component size 4, polyethylene liner size 4 with 11 mm of thickness, an asymmetric patellar component size 29 with 9 mm of thickness Surgeon: Gordo Deng MD Anesthesia: regional and spinal Was an Space Operations Officer used for this Procedure?: No Space Operations Officer: Karly Rangel Estimated blood loss (mL): 200 Pathology: other (Bony fragments from the right femur, tibia and patella) Condition: stable Disposition: PACU
--- NOTE | 2024-06-28 12:11 | W.PM.OPN ---
Operative Note Operative Note Date of Service: 06/28/24 Narrative: After the patient was identified as Cy Velez and his right knee was initialed by myself the patient was brought to the holding area where a right leg nerve block was performed by the anesthesiologist in routine fashion. The patient was then brought to the operating room where conscious sedation and spinal anesthesia were performed by the anesthesiologist in routine fashion. The patient was given 2 g of IV Ancef preoperatively for infection prophylaxis. The patient's right lower extremity was prepped and draped in sterile fashion. A formal time-out was completed. The patient's right knee was placed onto a small bump to produce 30? of knee flexion during exposure. A #10 scalpel blade was used to make a midline incision extending 1 handbreadth proximal and distal to the patella. A second #10 scalpel blade was used to dissect the subcutaneous tissues down to the extensor mechanism. The subcutaneous flaps were maintained as thick as possible. A medial parapatellar arthrotomy was then performed using a #10 scalpel blade. The arthrotomy was begun just medial to the patellar tendon. The arthrotomy was continued 1 cm medial to the patella and then 5 mm into the medial aspect of the quadriceps tendon. The infrapatellar fat pad was partially excised to help with exposure. The soft tissue retinaculum was raised one-half of the way around the medial aspect of the proximal tibia. The patella was everted and the knee was flexed to 90?. There was no injury to the patellar tendon or its insertion onto the tibial tubercle. A drill bit was introduced into the distal aspect of the femur with a starting point 1 cm anterior to the origin of the posterior cruciate ligament. The intramedullary alignment eliud was put into place. The distal alignment guide was set for a 5 degree valgus cut. The distal cutting block was put into place and was held with 4 pins. The intramedullary alignment eliud was removed. Soft tissues were retracted in the distal femoral cut was made using a sagittal saw. The distal aspect of the femur measured to be a size 5 right component. Two drill holes were placed into the distal aspect of the femur marking 3? of external rotation. The distal cutting block was impacted into place and was held with 2 pins. Soft tissues were retracted and the 4 distal femoral cuts were made using a sagittal saw. Final notching and drilling of the distal aspect of the femur were performed in routine fashion. The trial femoral component was impacted into place. The knee was taken through a full range of motion. The patella tracked well. The patella was everted and the knee was flexed to 90?. The trial component was removed and our attention was directed to the proximal tibia. The medial and lateral menisci were removed using a #10 scalpel blade. A small rim of the medial meniscus was left intact to help prevent injury to the medial collateral ligament. A drill bit was then introduced into the proximal tibia with a starting point midway from medial to lateral and one-third of the way posteriorly. The intramedullary alignment eliud was put into place. The proximal tibial cutting guide was placed over the alignment eliud in line with the 2nd toe. The guide was held in place using 3 pins. The intramedullary alignment eliud was removed. Soft tissues were retracted and the proximal tibial cut was made using a sagittal saw. The proximal tibia measured to be a size 4 component. The tibial tray was put into place with an 11 mm liner. The femoral component was impacted into place. The knee was taken through a full range of motion. There was full flexion and full extension. There was no instability with varus or valgus stress testing with the knee in flexion or extension. The patella tracked well with no medially directed force. The rotation of the tibial tray was marked using electrocautery with the knee in extension. The patella was everted and the knee was flexed to 90?. All trial components were removed. The tibial tray was placed onto the proximal tibia in line with the electrocautery [place]. The tray was held in place using 3 pins. Final broaching of the proximal tibia was performed in routine fashion. The trial liner and trial femoral component were put into place. The knee was brought into extension and our attention was directed to the patella. The patella measured 25 mm in thickness. The patellar resection guide was set for a 10 mm resection. Soft tissues were retracted and the patella cut was made using a sagittal saw. The remaining patella measured 15 mm in thickness. The undersurface of the patella was measured to be a size 29 asymmetric component. Three drill holes were placed into the undersurface of the patella in routine fashion. The trial component was put into place. The knee was taken through a full range of motion. The patella tracked well. The patella was everted and the knee was flexed to 90?. All trial components were removed. The knee was once again brought into extension and placed onto a small bump. The knee joint was irrigated with copious amounts of normal saline solution via pulse lavage while the cement was mixed. The patella was everted and the knee was flexed to 90?. A small amount of cement was placed along the posterior aspects of the tibial and femoral components. Cement was then pressurized into the proximal tibia. The tibial component was impacted into place. Any excess cement was removed. The polyethylene liner was then impacted into place. Cement was then pressurized into the distal aspect of the femur. A small amount of cement was placed into the intramedullary canal to help reduce bleeding. The femoral component was impacted into place. Any excess cement was removed. The knee was then brought into extension. Cement was pressurized into the undersurface of the patella. The patellar component was put into place and was held with a patella clamp. Any excess cement was removed. Once the cement had hardened the patellar clamp was removed. The knee was taken through a full range of motion. There was full flexion and extension. There was no instability with varus or valgus stress testing with the knee in flexion or extension. The patella tracked well with no medially directed force. The knee joint was irrigated with copious amounts of normal saline solution via pulse lavage. Any significant bleeding vessels were coagulated. The patient's right knee was placed onto a small bump. The arthrotomy was closed with #2 Ethibond [id number] interrupted suture as well as #1 Vicryl [id number] interrupted suture. The wound was once again irrigated. The subcutaneous tissues were closed with 0 Vicryl and 2-0 Vicryl interrupted sutures. The skin was closed with skin geni. Dry sterile dressing and Terry bandages were placed over the patient's right knee. The patient was awake and alert. The patient was transferred to the recovery room in stable condition.
[2024-06-28] MEDS: Lactated Ringers 1,000 ML 100 ML IVCONT ×2 (13:27→23:32)
--- NOTE | 2024-06-28 13:54 | HO.PM.IMCN ---
History of Present Illness Data of Consult Service Date: 06/28/24 Primary Care Provider: Unknown Physician HPI 84-year-old man with a history of hypertension, congestive heart failure, BPH admitted by Orthopedic surgeon in the status post right total knee arthroplasty. Surgery was unremarkable. Patient has been able to drink without any nausea or vomiting. At this time patient currently has no complaints of pain and no other acute medical complaints. Review of Systems Review of Systems: Denies any recent fever chills or decrease in appetite respiratory denies any shortness of breath or cough cardiovascular denied chest pain gastrointestinal denies any dysphagia abdominal pain nausea vomiting or diarrhea genitourinary denies any dysuria frequency or hematuria musculoskeletal denies any joint pain or swelling neuropsych denies any weakness or seizures all other systems reviewed are negative PMFSH Medical History Arthritis Back pain Anemia Hiatal hernia Murmur Scarlet fever Hyperlipidemia Chronic rhinitis Elevated PSA Thyroid disease HTN (hypertension) Gout CKD (chronic kidney disease) stage 3, GFR 30-59 ml/min Sleep apnea Internal hemorrhoids Polymyalgia rheumatica Chronic pruritus Lung cancer Functional diarrhea Osteoarthritis BPH (benign prostatic hyperplasia) Serrated polyp of colon Cystic mass of pancreas IBS (irritable bowel syndrome) Venous insufficiency of both lower extremities PVC (premature ventricular contraction) Cardiomyopathy Chest pain Coronary artery disease involving [place] coronary artery Second degree heart block Cardiac resynchronization therapy pacemaker (SUPERINTEND[employer] M[employer]-P) in place Surgical History H/O hemorrhoidectomy Hx of lumbosacral spine surgery Hx of bilateral cataract extraction Hx of removal of cyst Hx of inguinal hernia repair Hx of cholecystectomy H/O colonoscopy History of esophagogastroduodenoscopy (EGD) History of lobectomy of lung History of permanent cardiac pacemaker placement Hx of arthroscopy of left knee Hx of cardiac catheterization Social History Are you a primary intensive care ambulance paramedic to a significant other at home: No Do you presently have visiting nurse or other home services: No Patient Tobacco Use Status: Former Tobacco user Use of substances other than those prescribed or required for medical reasons: No Currently Displaying Signs/Symptoms of Drug Intoxication Withdrawal: No Have you been hit, kicked, punched, or otherwise hurt by someone within the past year? If so, by whom?: No Are you DNR?: No Advance Directives: No Advance Directives Information Provided: No Advance Directives on File: No Recently lost weight without trying: No Eating poorly because of decreased appetite: No Nutrition Risks: No Nutritional Risk Poor oral hygiene: No Meds Allergies Allergy/AdvReac Type Severity Reaction Status Date / Time lactose [LACTOSE] Allergy Severe Diarrhea Verified 06/28/24 07:25 morphine [MORPHINE] Allergy Intermediate INVOLUNTARY Verified 06/28/24 07:25 SPASMS atenolol AdvReac Intermediate Nausea Verified 06/28/24 07:25 Active Medications: Current Medications Acetaminophen (Acetaminophen 325 Mg Tablet) 650 mg PO Q6H PRN PRN Reason: Pain, Mild 1-3,fever,headache Allopurinol (Allopurinol 100 Mg Tablet) 150 mg PO DAILY [facility] Aspirin (Aspirin 325 Mg Tablet) 325 mg PO BID [facility] Atorvastatin Calcium (Atorvastatin Calcium 40 Mg Tablet) 40 mg PO QPM [facility] Carvedilol (Carvedilol 6.25 Mg Tablet) 6.25 mg PO BID [facility]; Protocol Celecoxib (Celecoxib 200 Mg Capsule) 200 mg PO BID [facility] Docusate Sodium (Docusate Sodium 100 Mg Capsule) 100 mg PO BID [facility] Finasteride (Finasteride 5 Mg Tablet) 5 mg PO DAILY [facility] Hydrochlorothiazide (Hydrochlorothiazide 12.5 Mg Tablet) 12.5 mg PO DAILY [facility]; Protocol Hydromorphone HCl (Hydromorphone Hcl 0.5 Mg/0.5 Ml Syringe) 0.25 mg IVPUSH Q4H PRN; Protocol PRN Reason: Pain, Moderate(Pain Scale 4-6) Hydromorphone HCl (Hydromorphone Hcl 0.5 Mg/0.5 Ml Syringe) 0.5 mg IVPUSH Q4H PRN; Protocol PRN Reason: Pain, Severe (Pain Scale 7-10) Lactated Ringer's (Lr) 1,000 mls @ 100 mls/hr IVCONT .Q10H [facility] Last Admin: 06/28/24 13:27 Dose: 100 mls/hr Cefazolin Sodium/Dextrose (Ancef) 2 gm in 50 mls @ 100 mls/hr IV Q8H [facility] Stop: 06/29/24 02:00 Levothyroxine Sodium (Levothyroxine Sodium 88 Mcg Tablet) 88 mcg PO QAM [facility] Magnesium Hydroxide (Milk Of Magnesia 30 Ml Oral.Susp) 30 ml PO DAILY PRN PRN Reason: Constipation Non-Formulary Medication (Eplerenone) 50 mg PO DAILY [facility] Omeprazole (Omeprazole 20 Mg Capsule.Dr) 20 mg PO DAILY [facility] Ondansetron HCl (Ondansetron Hcl 4 Mg/2 Ml Vial) 4 mg IVPUSH Q8H PRN PRN Reason: Nausea and Vomiting Oxycodone HCl (Oxycodone Hcl Immed Release 5 Mg Tablet) 5 mg PO Q4H PRN PRN Reason: Pain, Mild (Pain Scale 4-6 Oxycodone HCl (Oxycodone Hcl Immed Release 5 Mg Tablet) 10 mg PO Q4H PRN PRN Reason: Pain, Moderate(Pain Scale 4-6) Prednisone (Prednisone 1 Mg Tablet) 1 mg PO Q OTHER DAY [facility] Sacubitril/Valsartan (Sacubitril/Valsartan 49/51 1 Tab Tablet) 1 tab PO BID [facility]; Protocol Sodium Chloride (0.9 % Sodium Chloride Flush 3 Ml Syringe) 3 ml IVFLUSH QSHIFT [facility] Tamsulosin HCl (Tamsulosin Hcl 0.4 Mg Capsule) 0.4 mg PO BEDTIME [facility] Home Medications ?Medication ?Instructions ?Recorded ?Confirmed ?Last Taken ?Type atorvastatin 40 mg tablet 40 mg PO QPM 11/04/23 06/24/24 Unknown History carvedilol 6.25 mg tablet 6.25 mg PO BID 11/04/23 06/24/24 06/28/24 History finasteride 5 mg tablet 5 mg PO DAILY 11/04/23 06/24/24 Unknown History omeprazole 20 mg capsule,delayed 20 mg PO DAILY 11/04/23 06/24/24 06/28/24 History release prednisone 1 mg tablet 1 mg PO Q OTHER DAY 11/04/23 06/24/24 06/28/24 History sacubitril 49 mg-valsartan 51 mg 1 tab PO BID 11/04/23 06/24/24 Unknown History tablet (Entresto) tamsulosin 0.4 mg capsule 0.4 mg PO BEDTIME 11/04/23 06/24/24 Unknown History allopurinol 100 mg tablet 150 mg PO DAILY 05/17/24 06/24/24 Unknown History aspirin 81 mg tablet,delayed 81 mg PO DAILY 05/17/24 06/24/24 06/24/24 History release eplerenone 50 mg tablet 50 mg PO DAILY 05/17/24 06/24/24 06/28/24 History hydrochlorothiazide 12.5 mg tablet 12.5 mg PO DAILY 05/20/24 06/24/24 Unknown History levothyroxine 88 mcg tablet 88 mcg PO QAM 05/20/24 06/24/24 06/28/24 History cholecalciferol (vitamin D3) 50 50 mcg PO DAILY 06/28/24 06/28/24 Unknown History mcg (2,000 unit) capsule (Vitamin D3) Physical Exam Vital Signs and Narrative: Vital Signs: Last Vital Signs Temp 97.5 F 06/28/24 12:39 Pulse 60 06/28/24 12:39 Resp 20 06/28/24 12:39 BP 106/66 06/28/24 12:39 Pulse Ox 97 06/28/24 12:39 O2 Del Method Room Air 06/28/24 12:39 O2 Flow Rate 8 06/28/24 11:55 BMI result Body Mass Index 29.4 Appearing in no acute distress head is normocephalic atraumatic eyes pupils are PERRLA sclera is anicteric mouth throat mucous membranes are intact and moist neck is supple no lymphadenopathy, no JVD noted lung sounds are clear to auscultation heart regular rate rhythm, clear S1, S2 positive bowel sounds, abdomen is soft, nontender neuro patient is alert x3, no focal deficits Results Labs 06/29/24 05:35 06/29/24 05:35 Assessment and Plan (1) Arthritis of right knee: Status: Acute Plan 84-year-old man admitted by Orthopedic surgery and is status post right total knee arthroplasty Right total knee arthroplasty Management as per surgical team Pain management Hypertension Stable blood pressure postoperatively Restart antihypertensive medications in the morning as blood pressure allows Heart failure. Unspecified No acute exacerbation Appears to be on Entresto at home Hypothyroidism Continue levothyroxine GERD Continue PPI BPH Continue tamsulosin and finasteride DVT prophylaxis with full-dose aspirin Full code Medical consultation complete. Will sign off
[2024-06-28] MEDS: Docusate Sodium 100 MG CAPSULE PO ×2 (13:55→20:03)
--- NOTE | 2024-06-28 14:50 | PHA.MEDREC ---
Addendum entered by Carla Tinajero RPh 06/28/24 14:56: Med rec was reviewed by [facility]. Original Note: Pharmacy Consult ? Medication Reconciliation Pharmacy has reviewed the medication reconciliation done by nursing. Spoke to patient to confirm med list. Patient was able to tell me what medications he takes. Patient confirm Entresto 49 mg-51mg , however last fill date was 10/08/23 for 90 days, Prednisone 1 mg is QOD, last taken 06/28/24.
[2024-06-28] MEDS: ceFAZolin Sodium/Dextrose,Iso 2 GM/50 ML PIGGYBACK IV ×2 (15:11→23:30)
[2024-06-28] MEDS: oxyCODONE HCl Immed Release 5 MG TABLET PO (15:17)
[2024-06-28] MEDS: oxyCODONE HCl Immed Release 5 MG TABLET 10 MG PO ×2 (16:35→20:34)
[2024-06-28] MEDS: HYDROmorphone HCl 0.5 MG/0.5 ML SYRINGE 0.25 MG IVPUSH (17:47)
[2024-06-28] MEDS: Aspirin 325 MG TABLET PO ×2 (17:49→20:03)
[2024-06-28] MEDS: Celecoxib 200 MG CAPSULE PO (20:02)
[2024-06-28] MEDS: carvediloL 6.25 MG TABLET PO (20:03)
[2024-06-28] MEDS: Atorvastatin Calcium 40 MG TABLET PO (20:03)
[2024-06-28] MEDS: Tamsulosin HCL 0.4 MG CAPSULE PO (20:03)
[2024-06-28] MEDS: Sacubitril/Valsartan 49/51 1 TAB TABLET PO (21:49)
[2024-06-28] MEDS: Melatonin 3 MG TABLET 6 MG PO (21:49)
[2024-06-29] VITALS (8 sets, daily range): BP systolic 111–135; BP diastolic 56–71; PULSE 60–74; RESP 15–20; TEMP 36–37.2; O2SAT 94–97
[2024-06-29] MEDS: oxyCODONE HCl Immed Release 5 MG TABLET PO (04:46)
[2024-06-29] MEDS: Acetaminophen 325 MG TABLET 650 MG PO ×2 (04:46→17:27)
[2024-06-29] MEDS: Levothyroxine Sodium 88 MCG TABLET PO (05:57)
[2024-06-29] MEDS: Omeprazole 20 MG CAPSULE.DR PO (05:57)
[2024-06-29 06:26] LABS: MANUAL DIFF FLAG NO
[2024-06-29 06:35] LABS: Basophils Percent Auto 0.2 % (0-2); Hematocrit 32.5 % (42.0-52.0); Hemoglobin 10.5 g/dl (14.0-18.0); Imm Gran Abs Auto 0.06 X10*3/uL (0.00-0.03); Imm Gran Pct Auto 0.5 % (0.0-0.4); Lymphocytes Percent Auto 8.6 % (20-40); Mean Corpuscular HGB Conc 32.3 g/dl (31.0-36.0); Mean Corpuscular Hemoglobin 30.4 pg (27.0-33.0); Mean Corpuscular Volume 94.2 fL (80.0-98.0); Monocytes Absolute Auto 1.2 X10*3/uL (0.1-1.2); Monocytes Percent Auto 10.4 % (2-11); Neutrophils Absolute Auto 9.5 x10*3/uL (2.0-8.3); Neutrophils Percent Auto 80.3 % (45-73); Platelet Count 191 X10*3/uL (160-400); Red Blood Count 3.45 X10*6/uL (4.60-5.80); White Blood Count 11.9 X10*3/uL (4.8-10.8)
[2024-06-29 06:50] LABS: Anion Gap 12 (12-20); Blood Urea Nitrogen 27 mg/dL (9-16); Calcium 8.4 mg/dL (8.4-10.2); Carbon Dioxide 26 mmol/L (22-29); Chloride 105 mmol/L (96-108); Creatinine Clr Calc Pharmacy 36.7; Estimated Glomerular Filt Rate 44; Glucose Fasting 132 mg/dL (60-99); Potassium 3.9 mmol/L (3.3-5.1); Sodium 139 mmol/L (135-145)
[2024-06-29] MEDS: oxyCODONE HCl Immed Release 5 MG TABLET 10 MG PO ×4 (08:57→21:56)
[2024-06-29] MEDS: allopurinoL 100 MG TABLET 150 MG PO (09:11)
[2024-06-29] MEDS: hydroCHLOROthiazide 12.5 MG TABLET PO (09:11)
[2024-06-29] MEDS: Aspirin 325 MG TABLET PO ×2 (09:11→20:11)
[2024-06-29] MEDS: carvediloL 6.25 MG TABLET PO ×2 (09:11→20:11)
[2024-06-29] MEDS: Celecoxib 200 MG CAPSULE PO ×2 (09:12→20:12)
[2024-06-29] MEDS: Sacubitril/Valsartan 49/51 1 TAB TABLET PO ×2 (09:12→20:12)
[2024-06-29] MEDS: Docusate Sodium 100 MG CAPSULE PO ×2 (09:13→20:11)
[2024-06-29] MEDS: Finasteride 5 MG TABLET PO (09:13)
[2024-06-29] MEDS: 0.9 % Sodium Chloride Flush 3 ML SYRINGE IVFLUSH ×3 (09:16→20:12)
--- NOTE | 2024-06-29 11:04 | PM.DS ---
DS: Providers Provider Date of Service: 06/30/24 Date of discharge: 06/30/24 Primary care physician: Unknown Physician Consults: 06/28/24 13:03 Consult to Hospitalist Routine Comment: Consulting Provider[place] [facility] Reason For Exam: Routine medical management DS: Diagnosis Discharge Diagnosis (1) Arthritis of right knee: Status: Acute DS: Summary Hospital Course Hospital Course: The patient underwent a successful right total knee arthroplasty, they were transferred to PACU and then to the floor to recover. During their stay, their vitals were stable, afebrile at 98.4. Labs were unremarkable, H/H 9.5/29.3. POD0 they were started on Aspirin 325mg po bid for DVT ppx, they also received Physical Therapy services twice a day. Prior to discharge, their dressing was clean dry and intact, and the plan was to be discharged home with VNA services. Time Attestation Discharge Coordination Time (in mins): 30 Quality: Safe Use of Opioids Does Pt have an Active Cancer Diagnosis on the Problem List?: No Quality: Stroke Does the patient have a stroke diagnosis?: No Physical Exam Vital Signs: Vital Signs: Last Vital Signs Temp 98.9 F 06/29/24 07:53 Pulse 67 06/29/24 10:10 Resp 18 06/29/24 07:53 BP 113/56 L 06/29/24 10:10 Pulse Ox 94 06/29/24 10:10 O2 Del Method Room Air 06/29/24 07:53 O2 Flow Rate 8 06/28/24 11:55 BMI result Body Mass Index 29.4 Const: General: cooperative, healthy appearing and no acute distress Resp: Effort & Inspection: normal respiratory effort and able to speak in complete sentences Cardio: Rate: regular rate Peripheral pulses: Peripheral pulses 2+ throughout GI: Palpation (GI): Soft to palpation Skin: Lesions: no lesions Rashes: no rashes Extrem: Other: right knee dressing is c/d/i. Able to dorsi/plantar flex. Calf is supple and nontender. Sensation intact. Pedal pulse intact. DS: Data Data Completed and Pending Pending studies at discharge: Pending at discharge 06/28/24 10:51 Surgical [PTH] Routine Labs on day of discharge: Laboratory Results - last 24 hr 06/29/24 05:35 WBC 11.9 H RBC 3.45 L Hgb 10.5 L Hct 32.5 L MCV 94.2 MCH 30.4 MCHC 32.3 RDW 14.0 Plt Count 191 MPV 10.0 Immature Gran % (Auto) 0.5 H Neut % (Auto) 80.3 H Lymph % (Auto) 8.6 L [place] % (Auto) 10.4 Eos % (Auto) 0.0 Baso % (Auto) 0.2 Lymph # (Auto) 1.0 L [place] # (Auto) 1.2 Eos # (Auto) 0.0 Baso # (Auto) 0.0 Abs Immat Gran (auto) 0.06 H Absolute Neuts (auto) 9.5 H Absolute Nucleated RBC 0.000 Nucleated RBC % (auto) 0.0 Sodium 139 Potassium 3.9 Chloride 105 Carbon Dioxide 26 Anion Gap 12 BUN 27 H Creatinine 1.51 H Estim Creat Clear Calc 36.7 Estimated GFR 44 Fasting Glucose 132 H Calcium 8.4 D Discharge Plan Discharge Patient Disposition: Home Health Service Referrals: [facility] [Outside[facility] to [facility] Karly Rangel PA-C [Physician Inspector [employer]] - 07/15/24 1:00 pm Physician,Luna J [Primary Care Provider] - 1 Week (Aram Modi MD) Discharge Medications: New celecoxib 200 mg Capsule 200 mg PO BID 30 Days Qty: 60 0RF acetaminophen 325 mg Tablet 650 mg PO Q6H PRN (Reason: Pain, Mild 1-3,Fever,Headache) 30 Days Qty: 240 0RF aspirin 325 mg Tablet 325 mg PO BID 42 Days Qty: 84 0RF oxycodone 10 mg tablet 10 mg PO Q4H PRN (Reason: Pain, Moderate(Pain Scale 4-6)) 7 Days Qty: 42 0RF Rx Instructions: Partial Fill upon patient request. docusate sodium 100 mg Capsule 100 mg PO BID 30 Days Qty: 60 0RF Continued (HORTENCIA) zhanna Lopez See Rx Instructions .ROUTE .MEDSUPPLY Qty: 1 0RF Rx Instructions: Folding front wheeled walker allopurinol 100 mg tablet 150 mg PO DAILY levothyroxine 88 mcg tablet 88 mcg PO QAM hydrochlorothiazide 12.5 mg Tablet 12.5 mg PO DAILY cholecalciferol (vitamin D3) [Vitamin D3] 50 mcg (2,000 unit) Capsule 50 mcg PO DAILY tamsulosin 0.4 mg capsule 0.4 mg PO BEDTIME omeprazole 20 mg capsule,delayed release(DR/EC) 20 mg PO DAILY carvedilol 6.25 mg tablet 6.25 mg PO BID prednisone 1 mg tablet 1 mg PO Q OTHER DAY finasteride 5 mg tablet 5 mg PO DAILY Entresto 49-51 mg tablet 1 tab PO BID atorvastatin 40 mg tablet 40 mg PO QPM Discontinued aspirin 81 mg Tablet,Delayed Release (Dr/Ec) 81 mg PO DAILY No Action eplerenone 50 mg Tablet 50 mg PO DAILY Discharge Orders: Discharge Order (Routine); Ordered 06/30/24 Ordered By: Karly Rangel Diet: Advance to usual diet Activity on Discharge: Use cane or walker Activity Restrictions/Additional Instructions: Physical Therapy for ROM 0-120, quad strength, gait training. Use walker for ambulation Limit stair climbing, No shower, No tub bath, No driving Continue anticoagulant x 6 weeks Keep Aquacel dressing clean, dry and intact. Follow up with orthopedics in 2 weeks Print Language: Bol[place]ian
--- NOTE | 2024-06-29 11:05 | W.MHC.F2F ---
Service Date Service Date: 06/29/24 Encounter Date of encounter: 06/29/24 Reasons for Services Signs and symptoms assessed: s/p RTKA Pt. is considered homebound due to recent surgery. Unable to drive, poor balance, poor gait mechanics. Reason for physical therapy: home safety and mobility, therapeutic exercises, restore joint function, gait/transfer training and ADL training Homebound: Leaving the home is medically contraindicated at this time without the asist of a device and/or another person due th the listed conditions above and below. Reason homebound: unsteady gait / fall risk, leg weakness, pain with ambulation, poor balance / fall risk and unable to drive Certification: Based on the above findings, I certify that this patient is confined to the home and needs intermittent mcfp care, physical therapy and/or speech therapy, or continues to need occupational therapy. The patient is under my care, and I have initiated the establishment of the plan of care. The patient will be followed by a physician who will periodically review the plan of care. Time Spent With Patient Time: Total time managing care of this patient today ____ minutes.
--- NOTE | 2024-06-29 13:25 | P.PNOP_ITS ---
Subjective Subjective Date of Service: 06/29/24 Interval history: POD 1 s/p RT KA no overnight events resting in chair-states he had diff time ambulating long with PT due to pain denies sob, cp, palpitations Physical Exam Vital Signs: Vital Signs: Last Vital Signs Temp 98.8 F 06/29/24 11:56 Pulse 60 06/29/24 11:56 Resp 17 06/29/24 11:56 BP 111/57 L 06/29/24 11:56 Pulse Ox 96 06/29/24 11:56 O2 Del Method Room Air 06/29/24 11:56 O2 Flow Rate 8 06/28/24 11:55 BMI result Body Mass Index 29.4 Const: General: cooperative, healthy appearing and no acute distress Resp: Effort & Inspection: normal respiratory effort and able to speak in co mplete sentences Cardio: Rate: regular rate Peripheral pulses: Peripheral pulses 2+ throughout GI: Palpation (GI): Soft to palpation Skin: General skin exam: no rashes or lesions noted Extrem: Other: bandage clean dry and intact. Sonya intact. No erythema or joint effusion. Calf supple nontender. Neurovascularly intact. Procedures Date of Service Date of Service: 06/29/24 Progress Note: A&P Assessment and plan (1) Status post total right knee replacement: Status: Acute Plan * Continue pain mgmnt * Begin Aspirin for dvt ppx * begin PT for RT TKA * Dispo planning-Pending PT eval, pain mgmnt Time Spent With Patient Time: Total time managing care of this patient today ____ minutes. Quality Stroke Does the patient have a stroke diagnosis?: No VTE Prior VTE?: No VTE Risk Level:: Surgical - very high VTE Device Contraindication: N/A - Device Ordered VTE Drug Contraindication: N/A - Med Ordered
--- NOTE | 2024-06-29 14:19 | HO.POSTANES ---
Post Anesthesia Evaluation Post Anesthesia Evaluation Date of Service: 06/29/24 Vital Signs: Vital Signs Temp Pulse Resp BP Pulse Ox O2 Del Method 06/29/24 11:56 98.8 F 60 17 111/57 L 96 Room Air 06/29/24 10:10 67 113/56 L 94 06/29/24 07:53 98.9 F 67 18 113/56 L 94 Room Air 06/29/24 03:44 96.8 F 67 15 135/67 96 Room Air Anesthesia: Spinal Mental Status: Awake Pain Control: Satisfactory Nausea/Vomiting: None Hydration: Adequate Anesthesia-Related Issues: No Anes. Related Issues
--- NOTE | 2024-06-29 14:43 | MHC.CM.PN ---
Patient lives in a home alone. Functionally independent. Has a walker to use post-operatively, but does not use at baseline. PCP Aram Modi MD Reports he has an HCP naming his son, Skip, as HCA. Copy requested. DP: Home w/ new [employer] services. Son to transport. CM will continue to follow.
[2024-06-29] MEDS: Atorvastatin Calcium 40 MG TABLET PO (20:11)
[2024-06-29] MEDS: Tamsulosin HCL 0.4 MG CAPSULE PO (20:12)
[2024-06-29] MEDS: Melatonin 3 MG TABLET 6 MG PO (21:56)
[2024-06-30 03:17] VITALS: BP 106/57; PULSE 64; RESP 16; TEMP 36.9; O2SAT 97
[2024-06-30] MEDS: Levothyroxine Sodium 88 MCG TABLET PO (05:44)
[2024-06-30] MEDS: Omeprazole 20 MG CAPSULE.DR PO (05:44)
[2024-06-30 06:25] LABS: MANUAL DIFF FLAG NO
[2024-06-30 06:40] LABS: Anion Gap 12 (12-20); Blood Urea Nitrogen 29 mg/dL (9-16); Calcium 8.1 mg/dL (8.4-10.2); Carbon Dioxide 24 mmol/L (22-29); Chloride 106 mmol/L (96-108); Creatinine Clr Calc Pharmacy 36.7; Estimated Glomerular Filt Rate 44; Glucose Fasting 107 mg/dL (60-99); Potassium 3.6 mmol/L (3.3-5.1); Sodium 138 mmol/L (135-145)
[2024-06-30 06:49] LABS: Basophils Percent Auto 0.4 % (0-2); Eosinophils Absolute Auto 0.1 X10*3/uL (0.0-0.4); Eosinophils Percent Auto 1.7 % (0-4); Hematocrit 29.3 % (42.0-52.0); Hemoglobin 9.5 g/dl (14.0-18.0); Imm Gran Abs Auto 0.04 X10*3/uL (0.00-0.03); Imm Gran Pct Auto 0.6 % (0.0-0.4); Lymphocytes Absolute Auto 1.2 X10*3/uL (1.2-4.9); Lymphocytes Percent Auto 16.3 % (20-40); Mean Corpuscular HGB Conc 32.4 g/dl (31.0-36.0); Mean Corpuscular Hemoglobin 30.4 pg (27.0-33.0); Mean Corpuscular Volume 93.9 fL (80.0-98.0); Monocytes Percent Auto 13.3 % (2-11); Neutrophils Absolute Auto 4.9 x10*3/uL (2.0-8.3); Neutrophils Percent Auto 67.7 % (45-73); Platelet Count 168 X10*3/uL (160-400); Red Blood Count 3.12 X10*6/uL (4.60-5.80); Red Cell Distribution Width 14.1 % (11.0-16.0); White Blood Count 7.2 X10*3/uL (4.8-10.8)
[2024-06-30] MEDS: oxyCODONE HCl Immed Release 5 MG TABLET 10 MG PO (07:18)
[2024-06-30] MEDS: Acetaminophen 325 MG TABLET 650 MG PO (07:18)
[2024-06-30 08:00] VITALS: BP 103/53; BP 106/57; PULSE 64; PULSE 65; RESP 16; TEMP 36.6; O2SAT 96; O2SAT 97
[2024-06-30 09:37] VITALS: BP 103/53; PULSE 65; O2SAT 96
[2024-06-30 09:42] VITALS: BP 128/56
[2024-06-30] MEDS: hydroCHLOROthiazide 12.5 MG TABLET PO (09:42)
[2024-06-30 09:43] VITALS: BP 124/56
[2024-06-30] MEDS: Sacubitril/Valsartan 49/51 1 TAB TABLET PO (09:43)
[2024-06-30] MEDS: allopurinoL 100 MG TABLET 150 MG PO (09:44)
[2024-06-30] MEDS: Aspirin 325 MG TABLET PO (09:44)
[2024-06-30] MEDS: Finasteride 5 MG TABLET PO (09:44)
[2024-06-30 09:45] VITALS: BP 124/56; PULSE 85
[2024-06-30] MEDS: Docusate Sodium 100 MG CAPSULE PO (09:45)
[2024-06-30] MEDS: carvediloL 6.25 MG TABLET PO (09:45)
[2024-06-30] MEDS: Celecoxib 200 MG CAPSULE PO (09:45)
--- NOTE | 2024-06-30 10:32 | MHC.CM.PN ---
Patient medically cleared for dc home w/ services via [employer]. Private transport.
== END 2024-06-30 10:46 | disposition home health service (06) ==
LOC: HO.SSS 07:19 → HO.S3 09:12
PROVIDERS: Orthopaedic Surgery; PCP Internal Medicine Sports Medicine; Visit Provider Physician Assistant
PROC: (CPT 27447; principal; 2024-06-28 09:00)
DX: M17.11 Unilateral primary osteoarthritis, right knee (principal); M25.561 Pain in right knee; I13.0 Hypertensive heart and chronic kidney disease with heart failure and stage 1 through stage 4 chronic kidney disease, or unspecified chronic kidney disease; I50.9 Heart failure, unspecified; N18.30 Chronic kidney disease, stage 3 unspecified; Z95.0 Presence of cardiac pacemaker; Z87.891 Personal history of nicotine dependence; Z85.118 Personal history of other malignant neoplasm of bronchus and lung; Z90.2 Acquired absence of lung [part of]; Z79.82 Long term (current) use of aspirin; Z79.899 Other long term (current) drug therapy; Z88.5 Allergy status to narcotic agent; Z88.8 Allergy status to other drugs, medicaments and biological substances; Z98.890 Other specified postprocedural states
CPT/HCPCS: 27447; 36415; 80048; 85025; 86850; 86900; 86901; 87640; 87641; 88305; 88311; 97110; 97116; 97162; C1776; J0131; J0665; J0690; J1100; J1171; J2003; J2250; J2371; J2405; J2704; J3370; J7120

== ENCOUNTER → 2024-06-28 07:12 | Outpatient (BNV) | payer MEDICARE, SELFPAY | PROVIDERS: Visit Provider Nurse Practitioner Acute Care | DX: I10 Essential (primary) hypertension (principal); M17.11 Unilateral primary osteoarthritis, right knee | CPT/HCPCS: 99222 ==

== ENCOUNTER → 2024-06-28 07:12 | Outpatient (BNV) | payer MEDICARE, SELFPAY | PROVIDERS: Visit Provider Orthopaedic Surgery | DX: Z96.651 Presence of right artificial knee joint (principal) | CPT/HCPCS: 27447; 99024 ==

== ENCOUNTER 2024-07-15 10:50 | Outpatient (REF) | payer MEDICARE, SELFPAY ==
--- NOTE | ~2024-07-15 | XR_ITS ---
EXAMINATION: XR KNEE 3 VIEWS RIGHT HISTORY: M25.569 - Pain in unspecified knee COMPARISON: Comparison is made with the prior examination dated 11/04/2023. FINDINGS: Standing AP views of both knees and additional lateral and sunrise patellar views of the right knee are submitted. The patient is status post right total knee arthroplasty. The orthopedic elements are in anatomic alignment. There is no fracture or dislocation. Postoperative changes are noted in the soft tissues. XR/XR knee RT 3V IMPRESSION: Status post right total hip arthroplasty. Electronically signed by: Karl Kim MD 07/15/2024 03:20 PM [facility]
--- OUTSIDE RECORDS SUMMARY | 2024-07-16 12:26 | XMS_ITS | Encounter Summary ---
Author Organization [facility] Address [address] [place] [address] Care Team Providers Care Salvage Winder Name Role Phone Gael Coffman MD Primary Care Provider Unavail able Aram Modi MD Primary Care Provider Yanet Gilmore Pcp Primary Care Provider UnavailRavinder Wallace MD Unavailable [phone] Fabien Burgos NP Unavailable [phone] Aram Modi MD Primary Care Provider Angelica Cardozo MD Unavailable [phone] Reason for Visit * Reason Onset Date Comments Faxed Refill 11/13/2016 Encounter Details Date Type Department Care Team Description 11/13/2016 Telephone Adult Medicine [facility] [address] [place] [address] Gael Coffman MD Faxed Refill Social History [...] / Plan: [place] / Product Type: MEDICARE [id number] documented in this encounter Plan of Treatment Not on file documented as of this encounter Visit Diagnoses Not on filedocumented in this encounter Care Teams Salvage Winder Relationship Specialty Start Date End Date Gael Coffman MD PCP - General 06/10/01 04/21/17 Aram Modi MD PCP - General Internal Medicine 04/22/17 09/10/20 [facility], Pcp PCP - General Internal Medicine 09/11/20 02/17/23 Aram Modi MD PCP - General Internal Medicine 02/18/23 Ravinder Jose MD Specialist Cardiology 02/11/23 Fabien Burgos NP Specialist Cardiology 02/11/23 Angelica Price MD [address] [place] [address] Specialist Cardiology 03/11/23 documented as of this encounter
--- OUTSIDE RECORDS SUMMARY | 2024-07-16 12:26 | XMS_ITS | Encounter Summary ---
Author Organization [facility] Address [address] [place] [address] Care Team Providers Care Metal Fabricating Shop Helper Name Role Phone Gael Coffman MD Primary Care Provider Unavail able Aram Modi MD Primary Care Provider Luis E Parker Primary Care Provider UnavailRavinder Wallace MD Unavailable [phone] Fabien Burgos NP Unavailable [phone] Aram Modi MD Primary Care Provider Angelica Cardozo MD Unavailable [phone] Encounter Details Date Type Department Care Team Description 09/16/2013 Business Doc Medical Records [address] [place] [address] Abstract, Provider Social History Tobacco Use Types [...] in this encounter Care Teams Metal Fabricating Shop Helper Relationship Specialty Start Date End Date Gael Coffman MD PCP - General 06/10/01 04/21/17 Aram Modi MD PCP - General Internal Medicine 04/22/17 09/10/20 [facility], Pcp PCP - General Internal Medicine 09/11/20 02/17/23 Aram Modi MD PCP - General Internal Medicine 02/18/23 Ravinder Jose MD Specialist Cardiology 02/11/23 Fabien Burgos NP Specialist Cardiology 02/11/23 Angelica Price MD [address] [place] [address] Specialist Cardiology 03/11/23 documented as of this encounter
--- OUTSIDE RECORDS SUMMARY | 2024-07-16 12:26 | XMS_ITS | Encounter Summary ---
Author Organization [facility] Address [address] [place] [address] Care Team Providers Care Machine Sign Writer Name Role Phone Gael Coffman MD Primary Care Provider Unavail able Aram Modi MD Primary Care Provider Luis E Parker Primary Care Provider UnavailRavinder Wallace MD Unavailable [phone] Fabien Burgos NP Unavailable [phone] Aram Modi MD Primary Care Provider Angelica Cardozo MD Unavailable [phone] Encounter Details Date Type Department Care Team Description 01/11/2017 Orders Only Adult Medicine B - [place] [address] [place] [address] Gael Coffman MD Social History Tobacco Use [...] filedocumented in this encounter Care Teams Machine Sign Writer Relationship Specialty Start Date End Date Gael Coffman MD PCP - General 06/10/01 04/21/17 Aram Modi MD PCP - General Internal Medicine 04/22/17 09/10/20 [facility], Pcp PCP - General Internal Medicine 09/11/20 02/17/23 Aram Modi MD PCP - General Internal Medicine 02/18/23 Ravinder Jose MD Specialist Cardiology 02/11/23 Fabien Burgos NP Specialist Cardiology 02/11/23 Angelica Price MD [address] [place] [address] Specialist Cardiology 03/11/23 documented as of this encounter
--- OUTSIDE RECORDS SUMMARY | 2024-07-16 12:26 | XMS_ITS | Encounter Summary ---
Author Organization [facility] Address [address] [place] [address] Care Team Providers Care Parks And Recreation Manager Name Role Phone Gael Coffman MD Primary Care Provider Unavail able Aram Modi MD Primary Care Provider Yanet Gilmore Pcp Primary Care Provider UnavailRavinder Wallace MD Unavailable [phone] Fabien Burgos NP Unavailable [phone] Aram Modi MD Primary Care Provider Angelica Cardozo MD Unavailable Encounter Details Date Type Department Care Team Description 11/15/2016 [facility] Medical Records [address] [place] [address] Social History Tobacco Use Types Packs/Day Years [...] on filedocumented in this encounter Care Teams Parks And Recreation Manager Relationship Specialty Start Date End Date Gael Coffman MD PCP - General 06/10/01 04/21/17 Aram Modi MD PCP - General Internal Medicine 04/22/17 09/10/20 [facility], Pcp PCP - General Internal Medicine 09/11/20 02/17/23 Aram Modi MD PCP - General Internal Medicine 02/18/23 Ravinder Jose MD Specialist Cardiology 02/11/23 Fabien Burgos NP Specialist Cardiology 02/11/23 Angelica Price MD [address] [place] [address] Specialist Cardiology 03/11/23 documented as of this encounter
--- OUTSIDE RECORDS SUMMARY | 2024-07-16 12:26 | XMS_ITS | Encounter Summary ---
Author Organization [facility] Address [address] [place] [address] Care Team Providers Care Curber Name Role Phone Gael Coffman MD Primary Care Provider Unavail able Aram Modi MD Primary Care Provider Luis E Parker Primary Care Provider UnavailRavinder Wallace MD Unavailable [phone] Fabien Burgos NP Unavailable [phone] Aram Modi MD Primary Care Provider Angelica Cardozo MD Unavailable Encounter Details Date Type Department Care Team Description 11/16/2016 [facility] Medical Records [address] [place] [address] Manolo Hurtado MD Social History Tobacco Use [...] on filedocumented in this encounter Care Teams Curber Relationship Specialty Start Date End Date Gael Coffman MD PCP - General 06/10/01 04/21/17 Aram Modi MD PCP - General Internal Medicine 04/22/17 09/10/20 [facility], Pcp PCP - General Internal Medicine 09/11/20 02/17/23 Aram Modi MD PCP - General Internal Medicine 02/18/23 Ravinder Jose MD Specialist Cardiology 02/11/23 Fabien Burgos NP Specialist Cardiology 02/11/23 Angelica Price MD [address] [place] [address] Specialist Cardiology 03/11/23 documented as of this encounter
--- OUTSIDE RECORDS SUMMARY | 2024-07-16 12:26 | XMS_ITS | Encounter Summary ---
Author Organization [facility] Address [address] [place] [address] Care Team Providers Care Glazier Structural Glass Name Role Phone Gael Coffman MD Primary Care Provider Unavail able Aram Modi MD Primary Care Provider Luis E Parker Primary Care Provider UnavailRavinder Wallace MD Unavailable [phone] Fabien Burgos NP Unavailable [phone] Aram Modi MD Primary Care Provider Angelica Cardozo MD Unavailable [phone] Encounter Details Date Type Department Care Team Description 03/07/2013 Production Recorder Report Medical Records [address] [place] [address] Ricky Douglas Social History Tobacco Use Types [...] on filedocumented in this encounter Care Teams Glazier Structural Glass Relationship Specialty Start Date End Date Gael Coffman MD PCP - General 06/10/01 04/21/17 Aram Modi MD PCP - General Internal Medicine 04/22/17 09/10/20 [facility], Pcp PCP - General Internal Medicine 09/11/20 02/17/23 Aram Modi MD PCP - General Internal Medicine 02/18/23 Ravinder Jose MD Specialist Cardiology 02/11/23 Fabien Burgos NP Specialist Cardiology 02/11/23 Angelica Price MD [address] [place] [address] Specialist Cardiology 03/11/23 documented as of this encounter
--- OUTSIDE RECORDS SUMMARY | 2024-07-16 12:26 | XMS_ITS | Encounter Summary ---
Author Organization [facility] Address [address] [place] [address] Care Team Providers Care Dot Etcher Apprentice Name Role Phone Gael Coffman MD Primary Care Provider Unavail able Aram Modi MD Primary Care Provider Yanet Gilmore Pcp Primary Care Provider UnavailRavinder Wallace MD Unavailable [phone] Fabien Burgos NP Unavailable [phone] Aram Modi MD Primary Care Provider Angelica Cardozo MD Unavailable [phone] Encounter Details Date Type Department Care Team Description 01/19/2014 [facility] Medical Records [address] [place] [address] Guanaco Mederos MD Social History Tobacco Use [...] on filedocumented in this encounter Care Teams Dot Etcher Apprentice Relationship Specialty Start Date End Date Gael Coffman MD PCP - General 06/10/01 04/21/17 Aram Modi MD PCP - General Internal Medicine 04/22/17 09/10/20 [facility], Pcp PCP - General Internal Medicine 09/11/20 02/17/23 Aram Modi MD PCP - General Internal Medicine 02/18/23 Ravinder Jose MD Specialist Cardiology 02/11/23 Fabien Burgos NP Specialist Cardiology 02/11/23 Angelica Price MD [address] [place] [address] Specialist Cardiology 03/11/23 documented as of this encounter
--- OUTSIDE RECORDS SUMMARY | 2024-07-16 12:26 | XMS_ITS | Encounter Summary ---
Author Organization [facility] Address [address] [place] [address] Care Team Providers Care Print Binding And Finishing Worker Name Role Phone Gael Coffman MD Primary Care Provider Unavail able Aram Modi MD Primary Care Provider Luis E Parker Primary Care Provider UnavailRavinder Wallace MD Unavailable [phone] Fabien Burgos NP Unavailable [phone] Aram Modi MD Primary Care Provider Angelica Cardozo MD Unavailable [phone] Encounter Details Date Type Department Care Team Description 11/28/2016 [facility] Medical Records [address] [place] [address] Manolo Hurtado MD Social History Tobacco Use [...] on filedocumented in this encounter Care Teams Print Binding And Finishing Worker Relationship Specialty Start Date End Date Gael Coffman MD PCP - General 06/10/01 04/21/17 Aram Modi MD PCP - General Internal Medicine 04/22/17 09/10/20 [facility], Pcp PCP - General Internal Medicine 09/11/20 02/17/23 Aram Modi MD PCP - General Internal Medicine 02/18/23 Ravinder Jose MD Specialist Cardiology 02/11/23 Fabien Burgos NP Specialist Cardiology 02/11/23 Angelica Price MD [address] [place] [address] Specialist Cardiology 03/11/23 documented as of this encounter
--- OUTSIDE RECORDS SUMMARY | 2024-07-16 12:26 | XMS_ITS | Encounter Summary ---
Author Organization [facility] Address [address] [place] [address] Care Team Providers Care Equipment Service Lead Name Role Phone Gael Coffman MD Primary Care Provider Unavail able Aram Modi MD Primary Care Provider Luis E Parker Primary Care Provider UnavailRavinder Wallace MD Unavailable [phone] Fabien Burgos NP Unavailable [phone] Aram Modi MD Primary Care Provider Angelica Cardozo MD Unavailable [phone] Encounter Details Date Type Department Care Team Description 12/13/2016 Shaker Washer Report Medical Records [address] [place] [address] Abstract, Provider Social History Tobacco Use Types [...] on filedocumented in this encounter Care Teams Equipment Service Lead Relationship Specialty Start Date End Date Gael Coffman MD PCP - General 06/10/01 04/21/17 Aram Modi MD PCP - General Internal Medicine 04/22/17 09/10/20 [facility], Pcp PCP - General Internal Medicine 09/11/20 02/17/23 Aram Modi MD PCP - General Internal Medicine 02/18/23 Ravinder Jose MD Specialist Cardiology 02/11/23 Fabien Burgos NP Specialist Cardiology 02/11/23 Angelica Price MD [address] [place] [address] Specialist Cardiology 03/11/23 documented as of this encounter
--- OUTSIDE RECORDS SUMMARY | 2024-07-16 12:26 | XMS_ITS | Encounter Summary ---
Author Organization [facility] Address [address] [place] [address] Care Team Providers Care Coal Chemist Name Role Phone Gael Coffman MD Primary Care Provider Unavail able Aram Modi MD Primary Care Provider Luis E Parker Primary Care Provider UnavailRavinder Wallace MD Unavailable [phone] Fabien Burgos NP Unavailable [phone] Aram Modi MD Primary Care Provider Angelica Cardozo MD Unavailable [phone] Encounter Details Date Type Department Care Team Description 12/03/2012 Blow Up Operator Report Medical Records [address] [place] [address] Scott Souza Social History Tobacco Use Types [...] on filedocumented in this encounter Care Teams Coal Chemist Relationship Specialty Start Date End Date Gael Coffman MD PCP - General 06/10/01 04/21/17 Aram Modi MD PCP - General Internal Medicine 04/22/17 09/10/20 [facility], Pcp PCP - General Internal Medicine 09/11/20 02/17/23 Aram Modi MD PCP - General Internal Medicine 02/18/23 Ravinder Jose MD Specialist Cardiology 02/11/23 Fabien Burgos NP Specialist Cardiology 02/11/23 Angelica Price MD [address] [place] [address] Specialist Cardiology 03/11/23 documented as of this encounter
--- OUTSIDE RECORDS SUMMARY | 2024-07-16 12:27 | XMS_ITS | Encounter Summary ---
Author Organization [facility] Address [address] [place] [address] Care Team Providers Care Commercial Loan Assistant Name Role Phone Community, Pcp Primary Care Provider Unavailcynthia e Ravinder Jose MD Unavailable [phone] Fabien Burgos NP Unavailable [phone] Aram Modi MD Primary Care Provider Angelica Cardozo MD Unavailable [phone] Encounter Details Date Type Department Care Team Description 01/30/2023 [facility] Medical Records [address] [place] [address] Social History Tobacco Use Types Packs/Day Years [...] on filedocumented in this encounter Care Teams Commercial Loan Assistant Relationship Specialty Start Date End Date Community, Pcp PCP - General Internal Medicine 09/11/20 02/17/23 Aram Modi MD PCP - General Internal Medicine 02/18/23 Ravinder Jose MD Specialist Cardiology 02/11/23 Fabien Burgos NP Specialist Cardiology 02/11/23 Angelica Price MD 300 [facility] [address] [place] [address] Specialist Cardiology 03/11/23 documented as of this encounter
--- OUTSIDE RECORDS SUMMARY | 2024-07-16 12:27 | XMS_ITS | Encounter Summary ---
Author Organization [facility] Address [address] [place] [address] Care Team Providers Care Research Associate Policy Name Role Phone Gael Coffman MD Primary Care Provider Unavail able Aram Modi MD Primary Care Provider Yanet Gilmore Pcp Primary Care Provider UnavailRavinder Wallace MD Unavailable [phone] Fabien Burgos NP Unavailable [phone] Aram Modi MD Primary Care Provider Angelica Cardozo MD Unavailable [phone] Encounter Details Date Type Department Care Team Description 04/21/2014 Night Triage Doc Medical Records [address] [place] [address] Abstract, Provider Social History Tobacco Use Types [...] on filedocumented in this encounter Care Teams Research Associate Policy Relationship Specialty Start Date End Date Gael Coffman MD PCP - General 06/10/01 04/21/17 Aram Modi MD PCP - General Internal Medicine 04/22/17 09/10/20 Community, Pcp PCP - General Internal Medicine 09/11/20 02/17/23 Aarm Modi MD PCP - General Internal Medicine 02/18/23 Ravinder Jose MD Specialist Cardiology 02/11/23 Fabien Burgos NP Specialist Cardiology 02/11/23 Angelica Price MD [address] [place] [address] Specialist Cardiology 03/11/23 documented as of this encounter
--- OUTSIDE RECORDS SUMMARY | 2024-07-16 12:27 | XMS_ITS | Encounter Summary ---
Author Organization [facility] Address [address] [place] [address] Care Team Providers Care Bin Worker Name Role Phone Aram Modi MD Primary Care Provider Yanet Gilmore Pcp Primary Care Provider UnavailRavinder Wallace MD Unavailable [phone] Fabien Burgos NP Unavailable [phone] Aram Modi MD Primary Care Provider Angelica Cardozo MD Unavailable [phone] Encounter Details Date Type Department Care Team Description 12/24/2019 Global Human Resources Director Report Medical Records [address] [place] [address] Ricky Douglas Social History Tobacco Use Types [...] on filedocumented in this encounter Care Teams Bin Worker Relationship Specialty Start Date End Date Aram Modi MD PCP - General Internal Medicine 04/22/17 09/10/20 [facility], Pcp PCP - General Internal Medicine 09/11/20 02/17/23 Aram Modi MD PCP - General Internal Medicine 02/18/23 Ravinder Jose MD Specialist Cardiology 02/11/23 Fabien Burgos NP Specialist Cardiology 02/11/23 Angelica Price MD [address] [address] Specialist Cardiology 03/11/23 documented as of this encounter
--- OUTSIDE RECORDS SUMMARY | 2024-07-16 12:27 | XMS_ITS | Encounter Summary ---
Author Organization [facility] Address [address] [place] [address] Care Team Providers Care Coil Assembler Name Role Phone Aram Modi MD Primary Care Provider Yanet Gilmore Pcp Primary Care Provider UnavailRavinder Wallace MD Unavailable [phone] Fabien Burgos NP Unavailable [phone] Aram Modi MD Primary Care Provider Angelica Cardozo MD Unavailable Encounter Details Date Type Department Care Team Description 06/19/2018 Conservation Biology Professor Report Medical Records [address] [place] [address] Ricky Douglas Social History Tobacco Use Types [...] on filedocumented in this encounter Care Teams Coil Assembler Relationship Specialty Start Date End Date Aram Modi MD PCP - General Internal Medicine 04/22/17 09/10/20 [facility], Pcp PCP - General Internal Medicine 09/11/20 02/17/23 Aram Modi MD PCP - General Internal Medicine 02/18/23 Ravinder Jose MD Specialist Cardiology 02/11/23 Fabien Burgos NP Specialist Cardiology 02/11/23 Angelica Price MD [address] [address] Specialist Cardiology 03/11/23 documented as of this encounter
--- OUTSIDE RECORDS SUMMARY | 2024-07-16 12:27 | XMS_ITS | Encounter Summary ---
Author Organization [facility] Address [address] [place] [address] Care Team Providers Care Hazardous Material Technician Name Role Phone Aram Modi MD Primary Care Provider Unakuldeep Gilmore Pcp Primary Care Provider [facility] Ravinder Salvador MD Unavailable [phone] Fabien Burgos NP Unavailable [phone] Aram Modi MD Primary Care Provider Unava Angelica Russell MD Unavailable [phone] Encounter Details Date Type Department Care Team Description 05/27/2019 Pt. Non Urgent Medic al Question Physiatry - [place] [address] [place] [address] Dallas Hamilton DO Social History Tobacco Use [...] Progress Notes * Livier Dong M.A. - 05/27/2019 8:21 AM ESTFrom: Cy Holly Rosie To: Dallas Hamilton DO Sent: 05/27/2019 7:53 AM EST Subject: Sciatica pain Hi Dr Asimov Well I???m sure you were hoping to never again hear from me. However, I???m back and in [place]. I was hoping the sun and water would help. Unfortunately,nothing does and the pain is nearly unbearable. I am under the assumption that the next step is an operation and possibly you can recommend someone and a place. In the mean time I wonder if it would be possible to send a script for something stro nger then Acrtaminophen to the local [facility]. If yes, I will send you the address. I would greatly appreciate any help. Thank you, Shan Velez documented in this encounter Plan of Treatment Not on file documented as of this encounter Visit Diagnoses Not on filedocumented in this encounter Care Teams Hazardous Material Technician Relationship Specialty Start Date End Date Aram Modi MD PCP - General Internal Medicine 04/22/17 09/10/20 [facility], Pcp PCP - General Internal Medicine 09/11/20 02/17/23 Aram Modi MD PCP - General Internal Medicine 02/18/23 Ravinder Jose MD Specialist Cardiology 02/11/23 Fabien Burgos NP Specialist Cardiology 02/11/23 Angelica Priec MD 300 [facility] [address] [place] [address] Specialist Cardiology 03/11/23 documented as of this encounter
--- OUTSIDE RECORDS SUMMARY | 2024-07-16 12:27 | XMS_ITS | Encounter Summary ---
Author Organization [facility] Address [address] [place] [address] Care Team Providers Care Mechanic Helper Name Role Phone Aram Modi MD Primary Care Provider Yanet Gilmore Pcp Primary Care Provider [facility] Ravinder Salvador MD Unavailable [phone] Fabien Burgos NP Unavailable [phone] Aram Modi MD Primary Care Provider Angelica Cardozo MD Unavailable [phone] Reason for Visit * Reason Onset Date Comments Faxed Refill 08/09/2020 Encounter Details Date Type Department Care Team Description 08/09/2020 Refill Medicine/Pediatrics - [address] [address] Aram Modi MD Faxed Refill Social History [...] / Plan: [place] / Product Type: MEDICARE [id number] documented in this encounter Plan of Treatment Not on file documented as of this encounter Visit Diagnoses Not on filedocumented in this encounter Care Teams Mechanic Helper Relationship Specialty Start Date End Date Aram Modi MD PCP - General Internal Medicine 04/22/17 09/10/20 [facility] [place] PCP - General Internal Medicine 09/11/20 02/17/23 Aram Modi MD PCP - General Internal Medicine 02/18/23 Ravinder Jose MD Specialist Cardiology 02/11/23 Fabien Burgos NP Specialist Cardiology 02/11/23 Angelica Price MD [address] [place] [address] Specialist Cardiology 03/11/23 documented as of this encounter
--- OUTSIDE RECORDS SUMMARY | 2024-07-16 12:27 | XMS_ITS | Encounter Summary ---
Author Organization [facility] Address [address] [place] [address] Care Team Providers Care Actimize Architect Name Role Phone Aram Modi MD Primary Care Provider Yanet Gilmore Pcp Primary Care Provider [facility] Ravinder Salvador MD Unavailable Fabien Burgos NP Unavailable [phone] Aram Modi MD Primary Care Provider Unava Angelica Russell MD Unavailable [phone] Encounter Details Date Type Department Care Team Description 07/25/2020 Orders Only Medicine/Pediatrics - [address] [phone] Aram Modi MD Stage 3 chronic kidney [...] Primary documented in this encounter Care Teams Actimize Architect Relationship Specialty Start Date End Date Aram Modi MD PCP - General Internal Medicine 04/22/17 09/10/20 [facility] [place] [place] PCP - General Internal Medicine 09/11/20 02/17/23 Aram Modi MD PCP - General Internal Medicine 02/18/23 Ravinder Jose MD Specialist Cardiology 02/11/23 Fabien Burgos NP Specialist Cardiology 02/11/23 Angelica Price MD [address] [place] [address] Specialist Cardiology 03/11/23 documented as of this encounter
--- OUTSIDE RECORDS SUMMARY | 2024-07-16 12:27 | XMS_ITS | Encounter Summary ---
Author Organization [facility] Address [address] [place] [address] Care Team Providers Care Lock Tender Name Role Phone Gael Coffman MD Primary Care Provider Unavail able Aram Modi MD Primary Care Provider Luis E Parker Primary Care Provider UnavailRavinder Wallace MD Unavailable [phone] Fabien Burgos NP Unavailable Aram Modi MD Primary Care Provider Angelica Cardozo MD Unavailable [phone] Encounter Details Date Type Department Care Team Description 02/14/2014 Certified Fraud Examiner Report Medical Records [address] [place] [address] Arturo Patel PA-C [address] [facility] [address] [place] [address] Social History Tobacco Use Types Packs/Day Years [...] on filedocumented in this encounter Care Teams Lock Tender Relationship Specialty Start Date End Date Gael Coffman MD PCP - General 06/10/01 04/21/17 Aram Modi MD PCP - General Internal Medicine 04/22/17 09/10/20 [facility] Pcp PCP - General Internal Medicine 09/11/20 02/17/23 Aram Modi MD PCP - General Internal Medicine 02/18/23 Ravinder Jose MD Specialist Cardiology 02/11/23 Fabien Burgos NP Specialist Cardiology 02/11/23 Angelica Price MD [address] [place] [address] Specialist Cardiology 03/11/23 documented as of this encounter
--- OUTSIDE RECORDS SUMMARY | 2024-07-16 12:27 | XMS_ITS | Encounter Summary ---
Author Organization [facility] Address [address] [place] [address] Care Team Providers Care Application Integration Specialist Name Role Phone Gael Coffman MD Primary Care Provider Unavail able Aram Modi MD Primary Care Provider Yanet Gilmore Pcp Primary Care Provider UnavailRavinder Wallace MD Unavailable [phone] Fabien Burgos NP Unavailable [phone] Aram Modi MD Primary Care Provider Angelica Cardozo MD Unavailable [phone] Encounter Details Date Type Department Care Team Description 06/23/2015 [facility] Medical Records [address] [place] [address] Reilly Gaffney MD Social History Tobacco Use [...] on filedocumented in this encounter Care Teams Application Integration Specialist Relationship Specialty Start Date End Date Gael Coffman MD PCP - General 06/10/01 04/21/17 Aram Modi MD PCP - General Internal Medicine 04/22/17 09/10/20 [facility], Pcp PCP - General Internal Medicine 09/11/20 02/17/23 Aram Modi MD PCP - General Internal Medicine 02/18/23 Ravinder Jose MD Specialist Cardiology 02/11/23 Fabien Burgos NP Specialist Cardiology 02/11/23 Angelica Price MD [address] [place] [address] Specialist Cardiology 03/11/23 documented as of this encounter
--- OUTSIDE RECORDS SUMMARY | 2024-07-16 12:27 | XMS_ITS | Encounter Summary ---
Author Organization [facility] Address [address] [place] [address] Care Team Providers Care Master In Chancery Name Role Phone Aram Modi MD Primary Care Provider [phone] Reason for Visit * Reason Onset Date Comments Medical Records 05/20/2024 Encounter Details Date Type Department Care Team (Late st Contact Info) Description 05/20/2024 Telephone [facility] Cardiology [facility] [address] [place] [id number] Aram Modi MD [address] [address] Medical Records Social History Tobacco [...] EKG, device check and holter report to [facility] Att: Clarisa at [phone] on 05/20/2024 documented in this encounter Plan of Treatment Upcoming Encounters Date Type Department Care Team (Late st Contact Info) Description 10/28/2024 9:10 AM EDT Office Visit [facility] [address] [place] [address] Fabien Burgos NP [address] [place] [address] [address] [place] [address] 04/20/2025 8:00 AM EST Ancillary Procedure [facility] Cardiology [facility] [address] [place] [id number] documented as of this encounter Visit Diagnoses Not on filedocumented in this encounter Care Teams Master In Chancery Relationship Specialty Start Date End Date Aram Modi MD [address] [address] PCP - General 04/22/17 documented as of this encounter
--- OUTSIDE RECORDS SUMMARY | 2024-07-16 12:27 | XMS_ITS | Encounter Summary ---
Author Organization [facility] Address [address] [place] [address] Care Team Providers Care Park Activities Coordinator Name Role Phone Gael Coffman MD Primary Care Provider Unavail able Aram Modi MD Primary Care Provider Yanet Gilmore Pcp Primary Care Provider UnavailRavinder Wallace MD Unavailable Fabien Burgos NP Unavailable [phone] Aram Modi MD Primary Care Provider Angelica Cardozo MD Unavailable [phone] Encounter Details Date Type Department Care Team Description 01/21/2014 [facility] Medical Records [address] [place] [address] Mathew, [place] Social History Tobacco Use Types [...] on filedocumented in this encounter Care Teams Park Activities Coordinator Relationship Specialty Start Date End Date Gael Coffman MD PCP - General 06/10/01 04/21/17 Aram Modi MD PCP - General Internal Medicine 04/22/17 09/10/20 Community, Pcp PCP - General Internal Medicine 09/11/20 02/17/23 Aram Modi MD PCP - General Internal Medicine 02/18/23 Ravinder Jose MD Specialist Cardiology 02/11/23 Fabien Burgos NP Specialist Cardiology 02/11/23 Angelica Price MD [address] [place] [address] Specialist Cardiology 03/11/23 documented as of this encounter
--- OUTSIDE RECORDS SUMMARY | 2024-07-16 12:27 | XMS_ITS | Encounter Summary ---
Author Organization [facility] Address [address] [place] [address] Care Team Providers Care Tenant Relations Coordinator Name Role Phone Gael Coffman MD Primary Care Provider Unavail able Aram Modi MD Primary Care Provider Yanet Gilmore Pcp Primary Care Provider UnavailRavinder Wallace MD Unavailable [phone] Fabien Burgos NP Unavailable [phone] Aram Modi MD Primary Care Provider Angelica Cardozo MD Unavailable [phone] Encounter Details Date Type Department Care Team Description 09/17/2016 Director Of Child Welfare Services Report Medical Records [address] [place] [address] Jeet Saenz MD, MD Social History Tobacco Use Types Packs/Day [...] on filedocumented in this encounter Care Teams Tenant Relations Coordinator Relationship Specialty Start Date End Date Gael Coffman MD PCP - General 06/10/01 04/21/17 Aram Modi MD PCP - General Internal Medicine 04/22/17 09/10/20 Community, Pcp PCP - General Internal Medicine 09/11/20 02/17/23 Aram Modi MD PCP - General Internal Medicine 02/18/23 Ravinder Jose MD Specialist Cardiology 02/11/23 Fabien Burgos NP Specialist Cardiology 02/11/23 Angelica Price MD [address] [place] [address] Specialist Cardiology 03/11/23 documented as of this encounter
--- OUTSIDE RECORDS SUMMARY | 2024-07-16 12:27 | XMS_ITS | Encounter Summary ---
Author Organization [facility] Address [address] [place] [address] Care Team Providers Care Manager Summer Name Role Phone Aram Modi MD Primary Care Provider Unakuldeep Gilmore Pcp Primary Care Provider [facility] Ravinder Salvador MD Unavailable [phone] Fabien Burgos NP Unavailable [phone] Aram oMdi MD Primary Care Provider Unava Angelica Russell MD Unavailable [phone] Encounter Details Date Type Department Care Team Description 11/01/2018 Pt. Non Urgent Medical Question Rheumatology - [place] [address] [place] [address] Simon Garcia MD Social History Tobacco Use [...] filedocumented in this encounter Care Teams Manager Summer Relationship Specialty Start Date End Date Aram Modi MD PCP - General Internal Medicine 04/22/17 09/10/20 [facility] PCP - General Internal Medicine 09/11/20 02/17/23 Aram Modi MD PCP - General Internal Medicine 02/18/23 Ravinder Jose MD Specialist Cardiology 02/11/23 Fabien Burgos NP Specialist Cardiology 02/11/23 Angelica Price MD [address] [place] [address] Specialist Cardiology 03/11/23 documented as of this encounter
--- OUTSIDE RECORDS SUMMARY | 2024-07-16 12:27 | XMS_ITS | Encounter Summary ---
Author Organization [facility] Address [address] [place] [address] Care Team Providers Care Senior Professional Services Consultant Name Role Phone Gael Coffman MD Primary Care Provider Unavail able Aram Modi MD Primary Care Provider Yanet Gilmore Pcp Primary Care Provider UnavailRavinder Wallace MD Unavailable [phone] Fabien Burgos NP Unavailable [phone] Aram Modi MD Primary Care Provider Angelica Cardozo MD Unavailable [phone] Reason for Visit * Reason Onset Date Comments TEST RESULTS 06/09/2014 Encounter Details Date Type Department Care Team Description 06/09/2014 Pt. Non Urgent Medical Question Adult Medicine - [place] [address] [place] [address] Gael Coffman MD Social History Tobacco Use [...] Dear Dr. Coffman, Received test results in [place]. However, don't understand. Would greatly appreciate it if you cansend in laymans terms what they mean. documented in this encounter Plan of Treatment Not on file documented as of this encounter Visit Diagnoses Not on filedocumented in this encounter Care Teams Senior Professional Services Consultant Relationship Specialty Start Date End Date Gael Coffman MD PCP - General 06/10/01 04/21/17 Aram Modi MD PCP - General Internal Medicine 04/22/17 09/10/20 [facility], Pcp PCP - General Internal Medicine 09/11/20 02/17/23 Aram Modi MD PCP - General Internal Medicine 02/18/23 Ravinder Jose MD Specialist Cardiology 02/11/23 Fabien Burgos NP Specialist Cardiology 02/11/23 Angelica Price MD [address] [place] [address] Specialist Cardiology 03/11/23 documented as of this encounter
--- OUTSIDE RECORDS SUMMARY | 2024-07-16 12:27 | XMS_ITS | Encounter Summary ---
Author Organization [facility] Address [address] [place] [address] Care Team Providers Care Sampler Pickup Name Role Phone Gael Coffman MD Primary Care Provider Unavail able Aram Modi MD Primary Care Provider Yanet Gilmore Pcp Primary Care Provider UnavailRavinder Wallace MD Unavailable [phone] Fabien Burgos NP Unavailable [phone] Aram Modi MD Primary Care Provider Angelica Cardozo MD Unavailable [phone] Encounter Details Date Type Department Care Team Description 07/06/2014 Fisheries Technical Officer Report Medical Records [address] [place] [address] [facility] [place] Social History Tobacco Use Types Packs/Day [...] on filedocumented in this encounter Care Teams Sampler Pickup Relationship Specialty Start Date End Date Gael Coffman MD PCP - General 06/10/01 04/21/17 Aram Modi MD PCP - General Internal Medicine 04/22/17 09/10/20 [facility], Pcp PCP - General Internal Medicine 09/11/20 02/17/23 Aram Modi MD PCP - General Internal Medicine 02/18/23 Ravinder Jose MD Specialist Cardiology 02/11/23 Fabien Burgos NP Specialist Cardiology 02/11/23 Angelica Price MD [address] [place] [address] Specialist Cardiology 03/11/23 documented as of this encounter
--- OUTSIDE RECORDS SUMMARY | 2024-07-16 12:27 | XMS_ITS | Encounter Summary ---
Author Organization [facility] Address [address] [place] [address] Care Team Providers Care Station Cashier Name Role Phone Aram Modi MD Primary Care Provider Yanet Gilmore, Pcp Primary Care Provider Unavailpeacehealth [facility] Ravinder Salvador MD Unavailable [phone] Fabien Burgos NP Unavailable [phone] Aram Modi MD Primary Care Provider Angelica Cardozo MD Unavailable [phone] Encounter Details Date Type Department Care Team Description 06/28/2019 Poured Concrete Wall Technician Report Medical Records [address] [place] [address] Ronaldo Thakur, PA-C Social History Tobacco Use [...] on filedocumented in this encounter Care Teams Station Cashier Relationship Specialty Start Date End Date Aram Modi MD PCP - General Internal Medicine 04/22/17 09/10/20 [place], Pcp PCP - General Internal Medicine 09/11/20 02/17/23 Aram Modi MD PCP - General Internal Medicine 02/18/23 Ravinder Jose MD Specialist Cardiology 02/11/23 Fabien Burgos NP Specialist Cardiology 02/11/23 Angelica Price MD [address] [address] Specialist Cardiology 03/11/23 documented as of this encounter
--- OUTSIDE RECORDS SUMMARY | 2024-07-16 12:27 | XMS_ITS | Encounter Summary ---
Author Organization [facility] Address [address] [place] [address] Care Team Providers Care Hospitality Internship Name Role Phone Aram Modi MD Primary Care Provider Yanet Gilmore Pcp Primary Care Provider UnavailRavinder Wallace MD Unavailable [phone] Fabien Burgos NP Unavailable [phone] Aram Modi MD Primary Care Provider Angelica Cardozo MD Unavailable [phone] Encounter Details Date Type Department Care Team Description 10/09/2018 [facility] Medical Records [address] [place], [place] [id number] [place] [address] Social History Tobacco Use Types Packs/Day Years [...] on filedocumented in this encounter Care Teams Hospitality Internship Relationship Specialty Start Date End Date Aram Modi MD PCP - General Internal Medicine 04/22/17 09/10/20 [facility], Pcp PCP - General Internal Medicine 09/11/20 02/17/23 Aram Modi MD PCP - General Internal Medicine 02/18/23 Ravinder Jose MD Specialist Cardiology 02/11/23 Fabien Burgos NP Specialist Cardiology 02/11/23 Angelica Price MD [address] [address] Specialist Cardiology 03/11/23 documented as of this encounter
--- OUTSIDE RECORDS SUMMARY | 2024-07-16 12:27 | XMS_ITS | Encounter Summary ---
Author Organization [facility] Address [address] [place] [address] Care Team Providers Care Mandarin Speaking Nanny Name Role Phone Aram Modi MD Primary Care Provider Unakuldeep Gilmore Pcp Primary Care [facility] Ravinder Salvador MD Unavailable [phone] Fabien Burgos NP Unavailable [phone] Aram Modi MD Primary Care Provider Unava Angelica Russell MD Unavailable [phone] Encounter Details Date Type Department Care Team Description 12/28/2019 Orders Only Nephrology - [address] [address] Abhishek Haynes MD [address] [place] [address] [id number] Social History Tobacco Use Types Packs/Day Years [...] on filedocumented in this encounter Care Teams Mandarin Speaking Nanny Relationship Specialty Start Date End Date Aram Modi MD PCP - General Internal Medicine 04/22/17 09/10/20 [facility], Pcp PCP - General Internal Medicine 09/11/20 02/17/23 Aram Modi MD PCP - General Internal Medicine 02/18/23 Ravinder Jose MD Specialist Cardiology 02/11/23 Fabien Burgos NP Specialist Cardiology 02/11/23 Angelica Price MD [address] [place] [address] Specialist Cardiology 03/11/23 documented as of this encounter
--- OUTSIDE RECORDS SUMMARY | 2024-07-16 12:27 | XMS_ITS | Encounter Summary ---
Author Organization [facility] Address [address] [place] [address] Care Team Providers Care Clay Molder Name Role Phone Gael Coffman MD Primary Care Provider Unavail able Aram Modi MD Primary Care Provider Yanet Gilmore Pcp Primary Care Provider UnavailRavinder Wallace MD Unavailable [phone] Fabien Burgos NP Unavailable [phone] Aram Modi MD Primary Care Provider Angelica Cardozo MD Unavailable [phone] Reason for Visit * Reason Onset Date Comments lab test 05/27/2012 Encounter Details Date Type Department Care Team Description 05/27/2012 Pt. Non Urgent Medical Question Adult Medicine - [place] [address] [place] [address] Gael Coffman MD Social History Tobacco Use [...] PM Subject: Blood Test Results Hi Dr. Coffman, Was under the impression I would be contacted with blood test results. Also, have you received any test results on a possible UTI from [facility] in [place]. Holter monitor is scheduled for . Thank you for your help and any available information would be greatly appreciated. As I explained, I hope to be leaving for [place] this Friday. Dahiana Barbosa) documented in this encounter Plan of Treatment Not on file documented as of this encounter Visit Diagnoses Not on filedocumented in this encounter Care Teams Clay Molder Relationship Specialty Start Date End Date Gael Coffman MD PCP - General 06/10/01 04/21/17 Aram Modi MD PCP - General Internal Medicine 04/22/17 09/10/20 [facility] PCP - General Internal Medicine 09/11/20 02/17/23 Aram Modi MD PCP - General Internal Medicine 02/18/23 Ravinder Jose MD Specialist Cardiology 02/11/23 Fabien Burgos NP Specialist Cardiology 02/11/23 Angelica Price MD [address] [facility] [address] [place] [address] Specialist Cardiology 03/11/23 documented as of this encounter
--- OUTSIDE RECORDS SUMMARY | 2024-07-16 12:27 | XMS_ITS | Encounter Summary ---
Author Organization [facility] Address [address] [place] [address] Care Team Providers Care Vision Teacher Name Role Phone Gael Coffman MD Primary Care Provider Unavail able Aram Modi MD Primary Care Provider Yanet lopez [facility] Pcp Primary Care Provider UnavailRavinder Wallace MD Unavailable [phone] Fabien Burgos NP Unavailable [phone] Aram Modi MD Primary Care Provider Angelica Cardozo MD Unavailable [phone] Encounter Details Date Type Department Care Team Description 08/20/2016 [facility] Medical Records [address] [place] [id number] Abstract, Provider Social History Tobacco Use Types [...] on filedocumented in this encounter Care Teams Vision Teacher Relationship Specialty Start Date End Date Gael Coffman MD PCP - General 06/10/01 04/21/17 Aram Modi MD PCP - General Internal Medicine 04/22/17 09/10/20 [facility], Pcp PCP - General Internal Medicine 09/11/20 02/17/23 Aram Modi MD PCP - General Internal Medicine 02/18/23 Ravinder Jose MD Specialist Cardiology 02/11/23 Fabien Burgos NP Specialist Cardiology 02/11/23 Angelica Price MD [address] [place] [address] Specialist Cardiology 03/11/23 documented as of this encounter
--- OUTSIDE RECORDS SUMMARY | 2024-07-16 12:27 | XMS_ITS | Encounter Summary ---
Author Organization [facility] Address [address] [place] [address] Care Team Providers Care Wire Turning Machine Operator Name Role Phone Gael Coffman MD Primary Care Provider Unavail able Aram Modi MD Primary Care Provider Yanet Gilmore Pcp Primary Care Provider UnavailRavinder Wallace MD Unavailable [phone] Fabien Burgos NP Unavailable [phone] Aram Modi MD Primary Care Provider Angelica Cardozo MD Unavailable [phone] Encounter Details Date Type Department Care Team Description 10/17/2016 Automatic Splicing Machine Operator Report Medical Records [address] [place] [address] Thony Powers, PA-C Social History Tobacco Use [...] on filedocumented in this encounter Care Teams Wire Turning Machine Operator Relationship Specialty Start Date End Date Gael Coffman MD PCP - General 06/10/01 04/21/17 Aram Modi MD PCP - General Internal Medicine 04/22/17 09/10/20 [facility], Pcp PCP - General Internal Medicine 09/11/20 02/17/23 Aram Modi MD PCP - General Internal Medicine 02/18/23 Ravinder Jose MD Specialist Cardiology 02/11/23 Fabien Burgos NP Specialist Cardiology 02/11/23 Angelica Price MD [address] [place] [address] Specialist Cardiology 03/11/23 documented as of this encounter
--- OUTSIDE RECORDS SUMMARY | 2024-07-16 12:27 | XMS_ITS | Encounter Summary ---
Author Organization [facility] Address [address] [place] [address] Care Team Providers Care Facilities Locator Name Role Phone Aram Modi MD Primary Care Provider Unakuldeep Gilmore Pcp Primary Care Provider [facility] Ravinder Salvador MD Unavailable [phone] Fabien Burgos NP Unavailable [phone] Aram Modi MD Primary Care Provider Unava Angelica Russell MD Unavailable [phone] Encounter Details Date Type Department Care Team Description 01/20/2019 Pt. Non Urgent Medical Question Rheumatology - [place] [address] [place] [address] Simon Garcia MD Polymyalgia rheumatica (HCC) Social History Tobacco Use Types Packs/Day Years [...] Telephone Encounter - Kacie Acosta M.A. - 01/21/2019 8:22 AM EDTFrom: Cy Holly Rosie To: Simon Garcia MD Sent: 01/20/2019 7:54 PM EDT Subject: RX Hi Dr. Garcia, As instructed, I am on PREDNISONE 2.5 MG once a day. It does seem to be somewhat effective. As of this writing I am out and while my script calls for a refill, it is to old. If I should continue on this regiment, please send a script to [facility]. Thanks and Best Regards, Shan Velez documented in this encounter Plan of Treatment Not on file documented as of this encounter Visit Diagnoses Diagnosis Polymyalgia rheumatica (HCC) Polymyalgia rheumatica documented in this encounter Care Teams Facilities Locator Relationship Specialty Start Date End Date Aram Modi MD PCP - General Internal Medicine 04/22/17 09/10/20 [facility] Pcp PCP - General Internal Medicine 09/11/20 02/17/23 Aram Modi MD PCP - General Internal Medicine 02/18/23 Ravinder Jose MD Specialist Cardiology 02/11/23 Fabien Bugros NP Specialist Cardiology 02/11/23 Angelica Price MD [address] [place] [address] Specialist Cardiology 03/11/23 documented as of this encounter
--- OUTSIDE RECORDS SUMMARY | 2024-07-16 12:27 | XMS_ITS | Encounter Summary ---
Author Organization [facility] Address [address] [place] [address] Care Team Providers Care Iron Caster Name Role Phone Gael Coffman MD Primary Care Provider Unavail able Aram Modi MD Primary Care Provider Yanet Gilmore Pcp Primary Care Provider UnavailRavinder Wallace MD Unavailable [phone] Fabien Burgos NP Unavailable [phone] Aram Modi MD Primary Care Provider Angelica Cardozo MD Unavailable [phone] Encounter Details Date Type Department Care Team Description 06/06/2014 [facility] Medical Records [address] [place] [address] [place] Social History Tobacco Use Types [...] on filedocumented in this encounter Care Teams Iron Caster Relationship Specialty Start Date End Date Gael Coffman MD PCP - General 06/10/01 04/21/17 Aram Modi MD PCP - General Internal Medicine 04/22/17 09/10/20 [facility], Pcp PCP - General Internal Medicine 09/11/20 02/17/23 Aram Modi MD PCP - General Internal Medicine 02/18/23 Ravinder Jose MD Specialist Cardiology 02/11/23 Fabien Burgos NP Specialist Cardiology 02/11/23 Angelica Price MD [address] [place] [address] Specialist Cardiology 03/11/23 documented as of this encounter
--- OUTSIDE RECORDS SUMMARY | 2024-07-16 12:27 | XMS_ITS | Encounter Summary ---
Author Organization [facility] Address [address] [place] [address] Care Team Providers Care Miniature Set Designer Name Role Phone Aram Modi MD Primary Care Provider Yanet Gilmore Pcp Primary Care Provider UnavailRavinder Wallace MD Unavailable [phone] Fabien Burgos NP Unavailable [phone] Aram Modi MD Primary Care Provider Angelica Cardozo MD Unavailable [phone] Encounter Details Date Type Department Care Team Description 12/04/2018 Hand Trucker Report Medical Records [address] [place] [address] Abstract, Provider Social History Tobacco Use Types [...] on filedocumented in this encounter Care Teams Miniature Set Designer Relationship Specialty Start Date End Date Aram Modi MD PCP - General Internal Medicine 04/22/17 09/10/20 [facility], Pcp PCP - General Internal Medicine 09/11/20 02/17/23 Aram Modi MD PCP - General Internal Medicine 02/18/23 Ravinder Jose MD Specialist Cardiology 02/11/23 Fabien Burgos NP Specialist Cardiology 02/11/23 Angelica Price MD [address] [address] Specialist Cardiology 03/11/23 documented as of this encounter
--- OUTSIDE RECORDS SUMMARY | 2024-07-16 12:27 | XMS_ITS | Encounter Summary ---
Author Organization [facility] Address [address] [place] [address] Care Team Providers Care Coal And Ash Supervisor Name Role Phone Aram Modi MD Primary Care Provider Unakuldeep Gilmore Pcp Primary Care Provider [facility] Ravinder Salvador MD Unavailable [phone] Fabien Burgos NP Unavailable [phone] Aram Modi MD Primary Care Provider Unava Angelica Russell MD Unavailable [phone] Encounter Details Date Type Department Care Team Description 09/01/2018 Pt. Non Urgent Medic al Question Medicine/Pediatrics - [address] [address] Aram Modi MD Social History Tobacco Use [...] filedocumented in this encounter Care Teams Coal And Ash Supervisor Relationship Specialty Start Date End Date Aram Modi MD PCP - General Internal Medicine 04/22/17 09/10/20 [facility] PCP - General Internal Medicine 09/11/20 02/17/23 Aram Modi MD PCP - General Internal Medicine 02/18/23 Ravinder Jose MD Specialist Cardiology 02/11/23 Fabien Burgos NP Specialist Cardiology 02/11/23 Angelica Price MD [address] [place] [address] Specialist Cardiology 03/11/23 documented as of this encounter
--- OUTSIDE RECORDS SUMMARY | 2024-07-16 12:27 | XMS_ITS | Encounter Summary ---
Author Organization [facility] Address [address] [place] [address] Care Team Providers Care Monorail Helper Name Role Phone Gael Coffman MD Primary Care Provider Unavail able Aram Modi MD Primary Care Provider Yanet Gilmore Pcp Primary Care Provider UnavailRavinder Wallace MD Unavailable [phone] Fabien Burgos NP Unavailable [phone] Aram Modi MD Primary Care Provider Angelica Cardozo MD Unavailable [phone] Encounter Details Date Type Department Care Team Description 10/31/2016 Hydraulic Auto Jack Mechanic Report Medical Records [address] [place] [address] Thony Powers, PA-C Social History Tobacco Use [...] on filedocumented in this encounter Care Teams Monorail Helper Relationship Specialty Start Date End Date Gael Coffman MD PCP - General 06/10/01 04/21/17 Aram Modi MD PCP - General Internal Medicine 04/22/17 09/10/20 [facility], Pcp PCP - General Internal Medicine 09/11/20 02/17/23 Aram Modi MD PCP - General Internal Medicine 02/18/23 Ravinder Jose MD Specialist Cardiology 02/11/23 Fabien Burgos NP Specialist Cardiology 02/11/23 Angelica Price MD [address] [place] [address] Specialist Cardiology 03/11/23 documented as of this encounter
--- OUTSIDE RECORDS SUMMARY | 2024-07-16 12:27 | XMS_ITS | Encounter Summary ---
Author Organization [facility] Address [address] [place] [address] Care Team Providers Care Clinical Phlebotomist Name Role Phone Gael Coffman MD Primary Care Provider Unavail able Aram Modi MD Primary Care Provider Yanet Gilmore Pcp Primary Care Provider UnavailRavinder Wallace MD Unavailable [phone] Fabien Burgos NP Unavailable Aram Modi MD Primary Care Provider Angelica Cardozo MD Unavailable [phone] Encounter Details Date Type Department Care Team Description 06/08/2014 Pt. Non Urgent Medical Question Adult Medicine B - [place] [address] [place] [address] Gael Coffman MD Social History Tobacco Use [...] this encounter Progress Notes * Mary Ann Acuna R.N. - 06/08/2014 2:15 PM ESTFrom: Cy Velez To: Gael Coffman MD Sent: 06/08/2014 12:16 PM EST Subject: FIBROMYALGIA Dear Dr. Coffman, Never made it to [place] ended up back in the hospital. Severely sick. All tests showed negative although they said there could be some underlying heart problem. They are saying it's IBS, but I have never been this sick. I have a lot of pain in my shoulders and upper muscles, the right arm is the worst. The back of my neck also. Is this possible with IBS? Also I am doubled over with stomach pain. They gave me a new script for Dicyclomine 4 times a day. About 35 years ago I was diagnosed with fibromyalgia at [facility]. For a number of years I was on Amitriptyline, then the symptoms went away . Could my muscle pain be fibromyalgia again. I can't believe this arm pain could be from IBS. Do you think going back on Amitriptyline will help. I'm hoping the stomach pain will get better with the new meds. I can't sleep in bed so I sleep in a chair. The pains are worse when lying down. Dr. Coffman I would appreciate any suggestions. I would still like to go to [place] on Friday. Thanks, Shan Velez documented in this encounter Plan of Treatment Not on file documented as of this encounter Visit Diagnoses Not on filedocumented in this encounter Care Teams Clinical Phlebotomist Relationship Specialty Start Date End Date Gael Coffman MD PCP - General 06/10/01 04/21/17 Aram Modi MD PCP - General Internal Medicine 04/22/17 09/10/20 [facility], Pcp PCP - General Internal Medicine 09/11/20 02/17/23 Aram Modi MD PCP - General Internal Medicine 02/18/23 Ravinder Jose MD Specialist Cardiology 02/11/23 Fabien Burgos NP Specialist Cardiology 02/11/23 Angelica Price MD [address] [facility] [address] [place] [address] Specialist Cardiology 03/11/23 documented as of this encounter
--- OUTSIDE RECORDS SUMMARY | 2024-07-16 12:27 | XMS_ITS | Clinical Summary ---
Author Organization [facility] Address [address] [address] Phone Care Team Providers Care Business Agent Name Role Phone Aram Modi MD Primary Care Provider [phone] Allergies Active Allergy Reactions Criticality Noted Date [...] 04/09/2023 Overview (04/09/2023): Done on 02/03/2023 at [facility] indications:CHF Multiple premature ventricular complexes 021 [...] sleep apnea 03/29/2014 04/09/20 23 Overview (04/09/2023): [facility] Home Polysomnogram: Date 02/13/2017; AHI 12, Unclassified [...] Office Visit [facility] [address] [facility] [address] [place] [phone] Abhishek Haynes MD Stage 3a chronic kidney disease (HCC) (Primary Dx); Hypertension; Heart failure with reduced ejection fraction (HCC) 04/27/2024 Orders Only [facility] [address] [facility] [address] [place] [phone] Abhishek Haynes MD from Last 3 Months [...] Visit [facility] [address] [address] Abhishek Haynes MD [address] [address] Health Maintenance Due Date Last [...] Creatinine, Ur 44.9 Not Estab. mg/dL [facility] [place] Urine Microalbumin <3.0 Not Estab. ug/mL [facility] Microalbumin/Crea tinine Ratio <7 0 - 29 mg/g creat [facility] Comment: ? Normal: ?0 - ??29 ? Moderately increased: 30 - 300 ? Severely increased: ? >300 04/27/2024 12:5 1 PM EST 04/27/2024 us Abhishek Haynes MD LAB URINE ORDERABLES Final Resul t Performing Organization Address [facility] Co de Phone Number [employer] [place] [address] [place] [address] * (ABNORMAL) Vitamin D 25 Hydroxy (04/27/2024 12:51 PM EST) Vitamin D, 25-OH, Total 27.0(L) 30.0 - 100.0 ng/mL [facility] Comment: Vitamin D deficiency has been defined by the [place] of Medicine and an Endocrine Society practice guideline as a level of serum 25-OH vitamin D less than 20 ng/mL (1,2). The Endocrine Society went on to further define vitamin D insufficiency as a level between 21 and 29 ng/mL (2). 1. IOM ([place] of Medicine). 2010. Dietary reference ?? intakes for calcium and D. [place]: The ?? LocAsian Press. 2. Soheila MF, Samantha LAWSON, Vanda BURGESS, et al. ?? Evaluation, treatment, and prevention of vitamin D ?? deficiency: an Endocrine Society clinical practice ?? guideline. JCEM. 2010; 96(7):1911-30. 04/27/2024 12:5 1 PM EST 04/27/2024 us Abhishek Haynes MD LAB BLOOD ORDERABLES Final Resul t Performing Organization Address [facility] Co de Phone Number [employer] [place] [address] [place] [address] * (ABNORMAL) PTH, Intact (04/27/2024 12:51 PM EST) PTH 80(H) 15 - 65 pg/mL [facility] [place] 04/27/2024 12:5 1 PM EST 04/27/2024 us Abhishek Haynes MD LAB BLOOD ORDERABLES Final Resul t Performing Organization Address [facility] Co de Phone Number [employer] [place] [address] [place] [address] * (ABNORMAL) Renal Function Panel (04/27/2024 12:51 PM EST) Glucose 102(H) 70 - 99 mg/dL [facility] [place] BUN 36(H) 8 - 27 mg/dL [facility] [place] Creatinine 1.41(H) 0.76 - 1.27 mg/dL [facility] [place] eGFR CKD-EPI CR 2020 49(L) >59 mL/min/1.7 3 [facility] BUN/Creatinine Ratio 26(H) 10 - 24 [facility] Sodium 140 134 - 144 mmol/L [facility] Potassium 4.5 3.5 - 5.2 mmol/L [facility] Chloride 103 96 - 106 mmol/L [facility] Bicarbonate (CO2) 21 20 - 29 mmol/L [facility] [place] Calcium 9.1 8.6 - 10.2 mg/dL [facility] Phosphorus 3.2 2.8 - 4.1 mg/dL [facility] [place] Albumin 4.3 3.7 - 4.7 g/dL [facility] [place] 04/27/2024 12:5 1 PM EST 04/27/2024 us Abhishek Haynes MD LAB BLOOD ORDERABLES Final Resul t [facility] [place] [address] [place] [address] from Last 3 Months Insurance MEDICARE [facility] MEDICARE [facility] Care Teams Business Agent Relationship Specialty Start Date End Date Aram Modi MD [address] [place] [address] PCP - General Internal Medicine 04/09/23
--- OUTSIDE RECORDS SUMMARY | 2024-07-16 12:27 | XMS_ITS | Encounter Summary ---
Author Organization [facility] Address [address] [place] [address] Care Team Providers Care Direct Sales Representative Name Role Phone Gael Coffman MD Primary Care Provider Unavail able Aram Modi MD Primary Care Provider Yanet Gilmore Pcp Primary Care Provider UnavailRavinder Wallace MD Unavailable [phone] Fabien Burgos NP Unavailable [phone] Aram Modi MD Primary Care Provider Angelica Cardozo MD Unavailable [phone] Encounter Details Date Type Department Care Team Description 05/30/2014 [facility] Medical Records [address] [place] [address] Trupti Pack Social History Tobacco Use Types [...] on filedocumented in this encounter Care Teams Direct Sales Representative Relationship Specialty Start Date End Date Gael Coffman MD PCP - General 06/10/01 04/21/17 Aram Modi MD PCP - General Internal Medicine 04/22/17 09/10/20 [facility], Pcp PCP - General Internal Medicine 09/11/20 02/17/23 Aram Modi MD PCP - General Internal Medicine 02/18/23 Ravinder Jose MD Specialist Cardiology 02/11/23 Fabien Burgos NP Specialist Cardiology 02/11/23 Angelica Price MD [address] [place] [address] Specialist Cardiology 03/11/23 documented as of this encounter
--- OUTSIDE RECORDS SUMMARY | 2024-07-16 12:27 | XMS_ITS | Encounter Summary ---
Author Organization [facility] Address [address] [place] [address] Care Team Providers Care Quantitative Strategy Analyst Name Role Phone Gael Coffman MD Primary Care Provider Unavail able Aram Modi MD Primary Care Provider Yanet Gilmore Pcp Primary Care Provider UnavailRavinder Wallace MD Unavailable [phone] Fabien Burgos NP Unavailable [phone] Aram Modi MD Primary Care Provider Angelica Cardozo MD Unavailable [phone] Encounter Details Date Type Department Care Team Description 10/29/2016 [facility] Visit Medical Records [address] [place] [address] Abstract, Provider Social History Tobacco Use Types [...] on filedocumented in this encounter Care Teams Quantitative Strategy Analyst Relationship Specialty Start Date End Date Gael Coffman MD PCP - General 06/10/01 04/21/17 Aram Modi MD PCP - General Internal Medicine 04/22/17 09/10/20 [facility], Pcp PCP - General Internal Medicine 09/11/20 02/17/23 Aram Modi MD PCP - General Internal Medicine 02/18/23 Ravinder Jose MD Specialist Cardiology 02/11/23 Fabien Burgos NP Specialist Cardiology 02/11/23 Angelica Price MD [address] [place] [address] Specialist Cardiology 03/11/23 documented as of this encounter
--- OUTSIDE RECORDS SUMMARY | 2024-07-16 12:27 | XMS_ITS | Encounter Summary ---
Author Organization [facility] Address [address] [place] [address] Care Team Providers Care Mobile Home Lot Utility Worker Name Role Phone Gael Coffman MD Primary Care Provider Unavail able Aram Modi MD Primary Care Provider Yanet Gilmore Pcp Primary Care Provider UnavailRavinder Wallace MD Unavailable [phone] Fabien Burgos NP Unavailable [phone] Aram Modi MD Primary Care Provider Angelica Cardozo MD Unavailable [phone] Encounter Details Date Type Department Care Team Description 02/20/2017 Food Operations Manager Report Medical Records [address] [place] [address] Ronaldo Thakur, PA-C Social History Tobacco Use [...] filedocumented in this encounter Care Teams Mobile Home Lot Utility Worker Relationship Specialty Start Date End Date Gael Coffman MD PCP - General 06/10/01 04/21/17 Aram Modi MD PCP - General Internal Medicine 04/22/17 09/10/20 [facility], Pcp PCP - General Internal Medicine 09/11/20 02/17/23 Aram Modi MD PCP - General Internal Medicine 02/18/23 Ravinder Jose MD Specialist Cardiology 02/11/23 Fabien Burgos NP Specialist Cardiology 02/11/23 Angelica Price MD [address] [place] [address] Specialist Cardiology 03/11/23 documented as of this encounter
--- OUTSIDE RECORDS SUMMARY | 2024-07-16 12:27 | XMS_ITS | Encounter Summary ---
Author Organization [facility] Address [address] [place] [address] Care Team Providers Care Science Manager Name Role Phone Gael Coffman MD Primary Care Provider Unavail able Aram Modi MD Primary Care Provider Yanet [place]more Pcp Primary Care Provider UnavailRavinder [place] MD Unavailable [phone] Fabien Burgos NP Unavailable [phone] Aram Modi MD Primary Care Provider Angelica Cardozo MD Unavailable [phone] Encounter Details Date Type Department Care Team Description 07/06/2014 Repairer Switchgear Report Medical Records [address] [place] [address] [facility] [place] Social History Tobacco Use Types [...] on filedocumented in this encounter Care Teams Science Manager Relationship Specialty Start Date End Date Gael Coffman MD PCP - General 06/10/01 04/21/17 Aram Modi MD PCP - General Internal Medicine 04/22/17 09/10/20 [facility], Pcp PCP - General Internal Medicine 09/11/20 02/17/23 Aram Modi MD PCP - General Internal Medicine 02/18/23 Ravinder Jose MD Specialist Cardiology 02/11/23 Fabien Burgos NP Specialist Cardiology 02/11/23 Angelica Price MD [address] [place] [address] Specialist Cardiology 03/11/23 documented as of this encounter
--- OUTSIDE RECORDS SUMMARY | 2024-07-16 12:27 | XMS_ITS | Encounter Summary ---
Author Organization [facility] Address [address] [place] [address] Care Team Providers Care Bone Char Kiln Operator Name Role Phone Gael Coffman MD Primary Care Provider Unavail able Aram Modi MD Primary Care Provider Yanet Gilmore Pcp Primary Care Provider UnavailRavinder [place] MD Unavailable Fabien Burgos NP Unavailable [phone] Aram Modi MD Primary Care Provider Angelica Cardozo MD Unavailable [phone] Encounter Details Date Type Department Care Team Description 05/04/2014 Sales Operations Consultant Report Medical Records [address] [place] [address] Ricky Douglas Social History Tobacco Use Types [...] on filedocumented in this encounter Care Teams Bone Char Kiln Operator Relationship Specialty Start Date End Date Gael Coffman MD PCP - General 06/10/01 04/21/17 Aram Modi MD PCP - General Internal Medicine 04/22/17 09/10/20 [facility], Pcp PCP - General Internal Medicine 09/11/20 02/17/23 Aram Modi MD PCP - General Internal Medicine 02/18/23 Ravinder Jose MD Specialist Cardiology 02/11/23 Fabien Burgos NP Specialist Cardiology 02/11/23 Angelica Price MD [address] [place] [address] Specialist Cardiology 03/11/23 documented as of this encounter
--- OUTSIDE RECORDS SUMMARY | 2024-07-16 12:27 | XMS_ITS | Encounter Summary ---
Author Organization [facility] Address [address] [place] [address] Care Team Providers Care President [place] Name Role Phone Aram Modi MD Primary Care Provider Unakuldeep [place] Pcp [facility] Ravinder Salvador MD Unavailable [phone] Fabien Burgos NP Unavailable [phone] Aram Modi MD Primary Care Provider Unava Angelica Russell MD Unavailable [phone] Encounter Details Date Type Department Care Team Description 04/12/2019 Pt. Non Urgent Medical Question Rheumatology - [place] [address] [place] [address] Simon Garcia MD Social History Tobacco Use [...] on filedocumented in this encounter Care Teams President [place] Relationship Specialty Start Date End Date Aram Modi MD PCP - General Internal Medicine 04/22/17 09/10/20 [facility] Pcp PCP - General Internal Medicine 09/11/20 02/17/23 Aram Modi MD PCP - General Internal Medicine 02/18/23 Ravinder Jsoe MD Specialist Cardiology 02/11/23 Fabien Burgos NP Specialist Cardiology 02/11/23 Angelica Price MD [address] [place] [address] Specialist Cardiology 03/11/23 documented as of this encounter
--- OUTSIDE RECORDS SUMMARY | 2024-07-16 12:27 | XMS_ITS | Encounter Summary ---
Author Organization [facility] Address [address] [place] [address] Care Team Providers Care Mud Jack Nozzleman Name Role Phone Gael Coffman MD Primary Care Provider Unavail able Aram Modi MD Primary Care Provider Yanet [place] Pcp Primary Care Provider UnavailRavinder [place] MD Unavailable [phone] Fabien Burgos NP Unavailable [phone] Aram Modi MD Primary Care Provider Angelica Cardozo MD Unavailable [phone] Encounter Details Date Type Department Care Team Description 07/17/2016 Pt. Non Urgent Medical Question Adult Medicine B - [place] [address] [place] [address] Gael Coffman MD Social History Tobacco Use [...] as of this encounter Progress Notes * Sadie Collins M.A. - 07/17/2016 4:40 PM ESTFrom: Cy Holly Rosie To: Gael Coffman MD Sent: 07/17/2016 4:40 PM EST Subject: RX Help Dear Dr. Coffman In continuing to find relief for the pricing of my med Inspra. I have reached out to a company called [employer]. They will be sending you notice for prescription information etc. If this works and I qualify I can get the actual brand Inspra for only $49.00 / month which is only $588. / year. I now pay over $2800.00 I can only pray that I qualify. Thanks for your continued support. Shan Velez documented in this encounter Plan of Treatment Not on file documented as of this encounter Visit Diagnoses Not on filedocumented in this encounter Care Teams Mud Jack Nozzleman Relationship Specialty Start Date End Date Gael Coffman MD PCP - General 06/10/01 04/21/17 Aram Modi MD PCP - General Internal Medicine 04/22/17 09/10/20 [facility] PCP - General Internal Medicine 09/11/20 02/17/23 Aram oMdi MD PCP - General Internal Medicine 02/18/23 Ravinder Jose MD Specialist Cardiology 02/11/23 Fabien Burgos NP Specialist Cardiology 02/11/23 Angelica Price MD [address] [place] [address] Specialist Cardiology 03/11/23 documented as of this encounter
--- OUTSIDE RECORDS SUMMARY | 2024-07-16 12:27 | XMS_ITS | Encounter Summary ---
Author Organization [facility] Address [address] [place] [address] Care Team Providers Care Music Promoter Name Role Phone Gael Coffman MD Primary Care Provider Unavail able Aram [place] MD Primary Care Provider Yanet lopez [facility] Pcp Primary Care Provider UnavailRavinder [place] MD Unavailable [phone] Fabien Burgos NP Unavailable [phone] Aarm [place] MD Primary Care Provider Angelica Cardozo MD Unavailable [phone] Encounter Details Date Type Department Care Team Description 02/19/2017 Orders Only Medical Records [address] [place] [address] Gael Coffman MD Social History Tobacco Use Types Packs/Day Years Used Date Smoking Tobacco: Former Smokeless Tobacco: Former Comments:quit 30 yrs ago- oked only about 5 cigarettes / day [...] Name Priority Date/Time Associated Diagnosis Comments OUTSIDE SLEEP STUDY Routine 02/13/2017 documented in this encounter Results * OUTSIDE SLEEP STUDY (02/13/2017) Gael Coffamn MD PULMONOLOGY documented in this encounter Visit Diagnoses Not on filedocumented in this encounter Care Teams Music Promoter Relationship Specialty Start Date End Date Gael Coffman MD PCP - General 06/10/01 04/21/17 Aram Modi MD PCP - General Internal Medicine 04/22/17 09/10/20 [facility] PCP - General Internal Medicine 09/11/20 02/17/23 Aram Modi MD PCP - General Internal Medicine 02/18/23 Ravinder Jose MD Specialist Cardiology 02/11/23 Fabien Burgos NP Specialist Cardiology 02/11/23 Angelica Price MD [address] [place] [address] Specialist Cardiology 03/11/23 documented as of this encounter
--- OUTSIDE RECORDS SUMMARY | 2024-07-16 12:27 | XMS_ITS | Encounter Summary ---
Author Organization [facility] Address [address] [place] [address] Care Team Providers Care Cold Rolling Supervisor Name Role Phone Gael Coffman MD Primary Care Provider Unavail able Aram Modi MD Primary Care Provider Yanet [place] Pcp Primary Care Provider UnavailRavinder [place] MD Unavailable [phone] Fabien Burgos NP Unavailable [phone] Aram Modi MD Primary Care Provider Angelica Cardozo MD Unavailable [phone] Reason for Visit * Reason Onset Date Comments Advice 07/14/2014 Encounter Details Date Type Department Care Team Description 07/14/2014 Pt. Non Urgent Medical Question Adult Medicine - [place] [address] [place] [address] Gael Coffman MD Social History Tobacco Use [...] filedocumented in this encounter Care Teams Cold Rolling Supervisor Relationship Specialty Start Date End Date Gael Coffman MD PCP - General 06/10/01 04/21/17 Aram Modi MD PCP - General Internal Medicine 04/22/17 09/10/20 [facility], Pcp PCP - General Internal Medicine 09/11/20 02/17/23 Aram Modi MD PCP - General Internal Medicine 02/18/23 Ravinder Jose MD Specialist Cardiology 02/11/23 Fabien Burgos NP Specialist Cardiology 02/11/23 Angelica Price MD [address] [place] [address] Specialist Cardiology 03/11/23 documented as of this encounter
--- OUTSIDE RECORDS SUMMARY | 2024-07-16 12:27 | XMS_ITS | Encounter Summary ---
Author Organization [facility] Address [address] [place] [address] Care Team Providers Care Rn Medical Inpatient Services Name Role Phone Gael Coffman MD Primary Care Provider Unavail able Aram Modi MD Primary Care Provider Yanet [place] Pcp Primary Care Provider UnavailRavinder [place] MD Unavailable [phone] Fabien Burgos NP Unavailable [phone] Aram Modi MD Primary Care Provider Angelica Cardozo MD Unavailable [phone] Reason for Visit * Reason Onset Date Comments Hypertension Clinic Orders 10/30/2016 Order s PENDING for review and signing. Encounter Details Date Type Department Care Team Description 10/30/2016 Telephone Hypertension - [place] [address] [place] [address] Felicitas Love, Pharm.D Hypertension Clinic Orders (Orders [...] BASIC METABOLIC PANEL (11/20/2016 11:35 AM EDT) [facility] GLUCOSE 106(H) 70 - 100 mg/dL 11/20/2016 [...] 0.7 - 1.5 mg/dL 11/20/2016 3:32 PM [facility] GFR > 60 >60 11/20/2016 3:32 PM EDT [facility] Comment: If patient is -[place], multiply result by 1.21 Chronic Kidney Disease: [...] Gael Coffman MD LAB Performing Organization Address City/State/[facility] Co de Phone Number [facility] [address] [facility] documented in this encounter Visit Diagnoses Diagnosis Essential hypertension- Primary Unspecified essential hypertension documented in this encounter Care Teams Rn Medical Inpatient Services Relationship Specialty Start Date End Date Gael Coffman MD PCP - General 06/10/01 04/21/17 Aram Modi MD PCP - General Internal Medicine 04/22/17 09/10/20 [facility] PCP - General Internal Medicine 09/11/20 02/17/23 Aram Modi MD PCP - General Internal Medicine 02/18/23 Ravinder Jose MD Specialist Cardiology 02/11/23 Fabien Burgos NP Specialist Cardiology 02/11/23 Angelica Price MD [address] [facility] [address] [place] [address] Specialist Cardiology 03/11/23 documented as of this encounter
--- OUTSIDE RECORDS SUMMARY | 2024-07-16 12:27 | XMS_ITS | Encounter Summary ---
Author Organization [facility] Address [address] [place] [address] Care Team Providers Care Clerk Typist Name Role Phone Aram [place] MD Primary Care Provider [phone] Reason for Visit * Reason Onset Date Comments Medical Records 06/16/2024 Encounter Details Date Type Department Care Team (Late st Contact Info) Description 06/16/[address] [facility] Cardiology [facility] [address] [place] [phone] Aram Modi MD [address] [address] Medical Records Social History Tobacco [...] [facility] Att: Clarisa at [phone] on 06/16/2024. documented in this encounter Plan of Treatment Upcoming Encounters Date Type Department Care Team (Late st Contact Info) Description 10/28/2024 9:10 AM EDT Office Visit [facility] Cardiology [facility] [address] [place] [address] Fabien Burgos NP [address] [place] [address] [address] [place] [address] 04/20/2025 8:00 AM EST Ancillary Procedure [facility] [address] [place] [address] documented as of this encounter Visit Diagnoses Not on filedocumented in this encounter Care Teams Clerk Typist Relationship Specialty Start Date End Date Aram [place] MD [address] [address] PCP - General 04/22/17 documented as of this encounter
--- OUTSIDE RECORDS SUMMARY | 2024-07-16 12:27 | XMS_ITS | Encounter Summary ---
Author Organization [facility] Address [address] [place] [address] Care Team Providers Care Chemical Maker Name Role Phone Gael Coffman MD Primary Care Provider Unavail able Aram Modi MD Primary Care Provider Yanet [place] Pcp Primary Care Provider UnavailRavinder [place] MD Unavailable [phone] Fabien Burgos NP Unavailable [phone] Aram Modi MD Primary Care Provider Angelica Cardozo MD Unavailable [phone] Reason for Visit * Reason Onset Date Comments other 07/28/2014 Encounter Details Date Type Department Care Team Description 07/28/2014 Pt. Non Urgent Medical Question Adult Medicine - [place] [address] [place] [address] Gael Coffman MD Social History Tobacco Use [...] MD Sent: 07/28/2014 8:20 AM EDT Subject: [facility] Visit Dear Dr. Coffman, I am faxing my report from Dr. Ghazala Fisher of [facility]. Please note that the one area [...] on filedocumented in this encounter Care Teams Chemical Maker Relationship Specialty Start Date End Date [...] Cardiology 02/11/23 Angelica Price MD [address] [address] Specialist Cardiology 03/11/23 documented as of this encounter
--- OUTSIDE RECORDS SUMMARY | 2024-07-16 12:28 | XMS_ITS | Encounter Summary ---
Author Organization [facility] Address [address] [place] [address] Care Team Providers Care Product Info Specialist Name Role Phone Ravinder Jose MD Unavailable [phone] Fabien Burgos NP Unavailable [phone] Aram [place] MD Primary Care Provider Angelica Cardozo MD Unavailable [phone] Encounter Details Date Type Department Care Team Description 04/30/2023 SCAN Medical Records [address] [place] [address] Abstract, Provider Social History Tobacco Use Types [...] on filedocumented in this encounter Care Teams Product Info Specialist Relationship Specialty Start Date End Date Aram Modi MD PCP - General Internal Medicine 02/18/23 Ravinder Jose MD Specialist Cardiology 02/11/23 Fabien Burgos NP Specialist Cardiology 02/11/23 Angelica Price MD [address] [address] Specialist Cardiology 03/11/23 documented as of this encounter
--- OUTSIDE RECORDS SUMMARY | 2024-07-16 12:28 | XMS_ITS | Encounter Summary ---
Author Organization [facility] Address [address] [place] [address] Care Team Providers Care Chucking Lathe Operator Name Role Phone Gael Coffman MD Primary Care Provider Unavail able Aram Modi MD Primary Care Provider Yanet [place] Pcp Primary Care Provider UnavailRavinder [place] MD Unavailable [phone] Fabien Burgos NP Unavailable [phone] Aram Modi MD Primary Care Provider Angelica Cardozo MD Unavailable [phone] Encounter Details Date Type Department Care Team Description 12/24/2010 [facility] Medical Records [address] [place] [address] Abstract, Provider Social History Tobacco Use Types [...] on filedocumented in this encounter Care Teams Chucking Lathe Operator Relationship Specialty Start Date End Date Gael Coffman MD PCP - General 06/10/01 04/21/17 Aram Modi MD PCP - General Internal Medicine 04/22/17 09/10/20 [facility], Pcp PCP - General Internal Medicine 09/11/20 02/17/23 Aram Modi MD PCP - General Internal Medicine 02/18/23 Ravinder Jose MD Specialist Cardiology 02/11/23 Fabien Burgos NP Specialist Cardiology 02/11/23 Angelica Price MD [address] [place] [address] Specialist Cardiology 03/11/23 documented as of this encounter
--- OUTSIDE RECORDS SUMMARY | 2024-07-16 12:28 | XMS_ITS | Encounter Summary ---
Author Organization [facility] Address [address] [place] [address] Care Team Providers Care Mechanical Engineering Draftsperson Name Role Phone Ravinder Jose MD Unavailable [phone] Fabien Burgos NP Unavailable [phone] Aram Modi MD Primary Care Provider Angelica Cardozo MD Unavailable [phone] Encounter Details Date Type Department Care Team Description 02/24/2023 Air Conditioning Equipment Mechanic Report Medical Records [address] [place] [address] Abstract, Provider Social History Tobacco Use Types [...] filedocumented in this encounter Care Teams Mechanical Engineering Draftsperson Relationship Specialty Start Date End Date Aram Modi MD PCP - General Internal Medicine 02/18/23 Ravinder Jose MD Specialist Cardiology 02/11/23 Fabien Burgos NP Specialist Cardiology 02/11/23 Angelica Price MD [address] [address] Specialist Cardiology 03/11/23 documented as of this encounter
--- OUTSIDE RECORDS SUMMARY | 2024-07-16 12:28 | XMS_ITS | Encounter Summary ---
Author Organization [facility] Address [address] [place] [address] Care Team Providers Care Prop Cutter Name Role Phone Ravinder Jose MD Unavailable [phone] Fabien Burgos NP Unavailable [phone] Aram Modi MD Primary Care Provider Angelica Cardozo MD Unavailable [phone] Encounter Details Date Type Department Care Team Description 09/19/2023 Pt. Non Urgent Medical Question Cardio [facility] [address] [facility] [address] [place] [phone] Ravinder Jose MD [address] [place] [id number] Social History Tobacco Use Types Packs/Day Years [...] on filedocumented in this encounter Care Teams Prop Cutter Relationship Specialty Start Date End Date Aram Modi MD PCP - General Internal Medicine 02/18/23 Ravinder Jose MD Specialist Cardiology 02/11/23 Fabien Burgos NP Specialist Cardiology 02/11/23 Angelica Price MD [address] [place] [address] Specialist Cardiology 03/11/23 documented as of this encounter
--- OUTSIDE RECORDS SUMMARY | 2024-07-16 12:28 | XMS_ITS | Clinical Summary ---
Author Organization [facility] Address [address] [place] [address] Care Team Providers Care Sorting Cows Worker Name Role Phone Ravinder Jose MD Unavailable [phone] Fabien Burgos NP Unavailable [phone] Aram Modi MD Primary Care Provider Angelica Cardozo MD Unavailable [phone] Allergies Active Allergy Reactions Severity Noted Date [...] Noted Date Cardiac resynchronization therapy pacema ker (PRINTED CIRCUIT LAYOUT TAPER-P) in place 08/01/2023 Second degree heart block 03/26/2023 Coronary artery disease invo lving [place] coronary artery of [place] heart without angina pectoris 02/18/2023 History of cardiac catheterization 02/17 Overview: Done on 02/03/2023 at [facility] indications:CHF Chest pain 02/17/2023 Cardiomyopathy 02/17/2023 Overview: [...] of lung cancer 12/08/2015 Overview: NSC, s/p lobectomy,Tate Lerma; 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;left lower lobe Follows [facility] once a year Chronic pruritus 10/23/2015 Polymyalgia rheumatica 07/31/2015 Overview: Onset 06/03-tapered off prednisone December 2019 Prednisone restarted March 2020 Internal hemorrhoids with complication 0 05/22/2015 Vitamin B 12 deficiency 08/26/2014 Obstructive sleep apnea - mild AHI 12 Overview: [facility] Home Polysomnogram: Date 02/13/2017; [...] Hx Diabetes Negative Hx Hypertension Negative Hx [place] Negative Hx Mental Disorder Negative Hx Sleep [...] VACCINE Completed 11/02/2014, 09/16/2013, 01/15/2002 Care Teams Sorting Cows Worker Relationship Specialty Start Date End Date Aram Modi MD PCP - General Internal Medicine 02/18/23 Ravinder Jose MD Specialist Cardiology 02/11/23 Fabien Burgos NP Specialist Cardiology 02/11/23 Angelica Price MD 300 [facility] [address] [place] [address] Specialist Cardiology 03/11/23
--- OUTSIDE RECORDS SUMMARY | 2024-07-16 12:28 | XMS_ITS | Encounter Summary ---
Author Organization [facility] Address [address] [place] [address] Care Team Providers Care Stock Replenisher Name Role Phone Gael Coffman MD Primary Care Provider Unavail able Aram Modi MD Primary Care Provider Yanet [place] Pcp Primary Care Provider UnavailRavinder [place] MD Unavailable [phone] Fabien Burgos NP Unavailable [phone] Aram Modi MD Primary Care Provider Angelica Cardozo MD Unavailable [phone] Encounter Details Date Type Department Care Team Description 09/18/2011 Yard Coordinator Report Medical Records [address] [place] [address] Ricky Douglas Social History Tobacco Use Types [...] on filedocumented in this encounter Care Teams Stock Replenisher Relationship Specialty Start Date End Date Gael Coffman MD PCP - General 06/10/01 04/21/17 Aram Modi MD PCP - General Internal Medicine 04/22/17 09/10/20 [facility], Pcp PCP - General Internal Medicine 09/11/20 02/17/23 Aram Modi MD PCP - General Internal Medicine 02/18/23 Ravinder Jose MD Specialist Cardiology 02/11/23 Fabien Burgos NP Specialist Cardiology 02/11/23 Angelica Price MD [address] [place] [address] Specialist Cardiology 03/11/23 documented as of this encounter
--- OUTSIDE RECORDS SUMMARY | 2024-07-16 12:28 | XMS_ITS | Clinical Summary ---
Author Organization [facility] Address [address] [place] [address] Care Team Providers Care High School Foreign Language Tutor Name Role Phone Gael Coffman MD Primary Care Provider [phone] Allergies Active Allergy Reactions Criticality Noted Date [...] age to complete this topic Care Teams High School Foreign Language Tutor Relationship Specialty Start Date End Date Gael Coffman MD PCP - General Endocrinology 12/19/16
--- OUTSIDE RECORDS SUMMARY | 2024-07-16 12:28 | XMS_ITS | Encounter Summary ---
Author Organization [facility] Address [address] [place] [address] Care Team Providers Care Contracts Advisor Name Role Phone Ravinder Jose MD Unavailable [phone] Fabien Burgos NP Unavailable [phone] Aram Modi MD Primary Care Provider Angelica Cardozo MD Unavailable [phone] Encounter Details Date Type Department Care Team Description 07/12/2023 Pt. Non Urgent Medical Question Cardio [facility] [address] [facility] [address] [place] [phone] Fabien Burgos, LEAH [address] [place], [place] [phone] Social History Tobacco Use Types Packs/Day Years [...] on filedocumented in this encounter Care Teams Contracts Advisor Relationship Specialty Start Date End Date Aram Modi MD PCP - General Internal Medicine 02/18/23 Ravinder Jose MD Specialist Cardiology 02/11/23 Fabien Burgos NP Specialist Cardiology 02/11/23 Angelica Price MD [address] [place] [address] Specialist Cardiology 03/11/23 documented as of this encounter
--- OUTSIDE RECORDS SUMMARY | 2024-07-16 12:28 | XMS_ITS | Encounter Summary ---
Author Organization [facility] Address [address] [place] [address] Care Team Providers Care Foot Doctor Name Role Phone Gael Coffman MD Primary Care Provider Unavail able Aram Modi MD Primary Care Provider Yanet Gilmore Pcp Primary Care Provider UnavailRavinder Wallace MD Unavailable [phone] Fabien Burgos NP Unavailable Aram Modi MD Primary Care Provider Angelica Cardozo MD Unavailable [phone] Encounter Details Date Type Department Care Team Description 12/19/2011 Release of Information Medical Records [address] [place] [id number] Abstract, Provider Social History Tobacco Use Types [...] on filedocumented in this encounter Care Teams Foot Doctor Relationship Specialty Start Date End Date Gael Coffman MD PCP - General 06/10/01 04/21/17 Aram Modi MD PCP - General Internal Medicine 04/22/17 09/10/20 [facility], Pcp PCP - General Internal Medicine 09/11/20 02/17/23 Aram Modi MD PCP - General Internal Medicine 02/18/23 Ravinder Jose MD Specialist Cardiology 02/11/23 Fabien Burgos NP Specialist Cardiology 02/11/23 Angelica Price MD [address] [place] [address] Specialist Cardiology 03/11/23 documented as of this encounter
--- OUTSIDE RECORDS SUMMARY | 2024-07-16 12:28 | XMS_ITS | Encounter Summary ---
Author Organization [facility] Address [address] [place] [address] Care Team Providers Care Kiln Stacker Name Role Phone Ravinder Jose MD Unavailable [phone] Fabien Burgos NP Unavailable [phone] Aram Modi MD Primary Care Provider Angelica Cardozo MD Unavailable [phone] Reason for Visit * Reason Onset Date Comments preop exam 03/16/2024 Encounter Details Date Type Department Care Team Description 03/16/2024 Telephone Cardio PVC [facility] [address] [place] [address] Drive [address] [place] [phone] Ravinder Jose MD [address] [place] [address] [phone] preop exam Social History Tobacco Use Types [...] Caller: Luis Garcia Orthopedic surgery Phone number: [phone] documented in this encounter Plan of Treatment Not on file documented as of this encounter Visit Diagnoses Not on filedocumented in this encounter Care Teams Kiln Stacker Relationship Specialty Start Date End Date Aram Modi MD PCP - General Internal Medicine 02/18/23 Ravinder Jose MD Specialist Cardiology 02/11/23 Fabien Burgos NP Specialist Cardiology 02/11/23 Angelica Price MD [address] [address] Specialist Cardiology 03/11/23 documented as of this encounter
--- OUTSIDE RECORDS SUMMARY | 2024-07-16 12:28 | XMS_ITS | Encounter Summary ---
Author Organization [facility] Address [address] [place] [address] Care Team Providers Care Director Machine Name Role Phone Ravinder Jose MD Unavailable [phone] Fabien Burgos NP Unavailable [phone] Aram Modi MD Primary Care Provider Angelica Cardozo MD Unavailable Encounter Details Date Type Department Care Team Description 03/25/2023 Orders Only Cardio PVC POC 154 300 [facility] [address] [place] [address] Default, Provider Social History Tobacco Use Types [...] filedocumented in this encounter Care Teams Director Machine Relationship Specialty Start Date End Date Aram Modi MD PCP - General Internal Medicine 10/3/23 Ravinder Jose MD Specialist Cardiology 02/11/23 Fabien Burgos NP Specialist Cardiology 02/11/23 Angelica Price MD [address] [address] Specialist Cardiology 03/11/23 documented as of this encounter
--- OUTSIDE RECORDS SUMMARY | 2024-07-16 12:28 | XMS_ITS | Encounter Summary ---
Author Organization [facility] Address [address] [place] [address] Care Team Providers Care Grape Grower Name Role Phone Ravinder Jose MD Unavailable [phone] Fabien Burgos NP Unavailable [phone] Aram Modi MD Primary Care Provider Angelica Cardozo MD Unavailable [phone] Reason for Visit * Reason Onset Date Comments other 05/09/2023 Encounter Details Date Type Department Care Team Description 05/09/2023 Telephone Cardio PVC [facility] [address] [place] [phone] Ravinder Jose MD [address] [place] [address] [phone] other Social History Tobacco Use Types Packs/Day Years [...] * Telephone Encounter - Constanza Durant - 05/13/2023 11:02 AM EST Echo booked with patient for 06/30/23 @ 8am. Letter mailed. * Telephone Encounter - Fabien Burgos NP - 05/09/2023 2:21 PM EST We will get the echo when he returns - he just needs to let us know when in order to schedule it. * Telephone Encounter - Deisy Baker R.N. - 05/09/2023 11:48 AM EST I do not see an order for echo. * Telephone Encounter - Damaris Hicks - 05/09/2023 11:40 AM EST Patient called he will be leaving to [place] on 05/21/23 and would like to know if there is anything he should do before he leaves. He was also under the impression that he needed to have an ultrasounddone this month. Please call him back at [phone]. documented in this encounter Plan of Treatment Not on file documented as of this encounter Results * IN ECHO TTHRC R-T 2D W/WOM-MODE COMPL SPEC&COLR D (06/30/2023) Fabien Burgos NP CARDIOLOGY Performing Organization Address City/State/[facility] [[email or web address]] Co de Phone Number [facility] documented in this encounter Visit Diagnoses Diagnosis Cardiomyopathy, unspecified type (HCC)- Primary documented in this encounter Care Teams Grape Grower Relationship Specialty Start Date End Date Aram Modi MD PCP - General Internal Medicine 02/18/23 Ravinder Jose MD Specialist Cardiology 02/11/23 Fabien Burgos NP Specialist Cardiology 02/11/23 Angelica Price MD [address] [place] [address] Specialist Cardiology 03/11/23 documented as of this encounter
--- OUTSIDE RECORDS SUMMARY | 2024-07-16 12:28 | XMS_ITS | Encounter Summary ---
Author Organization [facility] Address [address] [place] [address] Care Team Providers Care Manager Code Name Role Phone Gael Coffman MD Primary Care Provider Unavail able Aram Modi MD Primary Care Provider Yanet Gilmore Pcp Primary Care Provider UnavailRavinder Wallace MD Unavailable [phone] Fabien Burgos NP Unavailable [phone] Aram Modi MD Primary Care Provider Angelica Cardozo MD Unavailable [phone] Encounter Details Date Type Department Care Team Description 11/22/2010 Para Machine Operator Report Medical Records [address] [place] [address] Scott Souza Social History Tobacco Use Types [...] filedocumented in this encounter Care Teams Manager Code Relationship Specialty Start Date End Date Gael Coffman MD PCP - General 06/10/01 04/21/17 Aram Modi MD PCP - General Internal Medicine 04/22/17 09/10/20 [facility], Pcp PCP - General Internal Medicine 09/11/20 02/17/23 Aram Modi MD PCP - General Internal Medicine 02/18/23 Ravinder Jose MD Specialist Cardiology 02/11/23 Fabien Burgos NP Specialist Cardiology 02/11/23 Angelica Price MD [address] [place] [address] Specialist Cardiology 03/11/23 documented as of this encounter
--- OUTSIDE RECORDS SUMMARY | 2024-07-16 12:28 | XMS_ITS | Encounter Summary ---
Author Organization [facility] Address [address] [place] [address] Care Team Providers Care Classified Copy Control Clerk Name Role Phone Aram Modi MD Primary Care Provider Unakuldeep Gilmore Pcp Primary Care Provider Unavailmulticare health Ravinder Salvador MD Unavailable [phone] Fabien Burgos NP Unavailable [phone] Aram Modi MD Primary Care Provider Unava Angelica Russell MD Unavailable [phone] Encounter Details Date Type Department Care Team Description 08/03/2018 Telephone Cardiology - [place] [address] [place] [address] [phone] Darleen Hernadez PA-C [address] [place] [employer], [place] [phone] Social History Tobacco Use Types Packs/Day Years [...] States happens like that when he eats lao too. PA states no redness or hot [...] on filedocumented in this encounter Care Teams Classified Copy Control Clerk Relationship Specialty Start Date End Date Aram Modi MD PCP - General Internal Medicine 04/22/17 09/10/20 [facility] [place] - [place] Internal [place] 09/11/20 02/17/23 Aram Modi MD PCP - General Internal Medicine 02/18/23 Ravinder Jose MD Specialist Cardiology 02/11/23 Fabien Burgos NP Specialist Cardiology 02/11/23 Angelica Price MD [address] [place] [address] Specialist Cardiology 03/11/23 documented as of this encounter
--- OUTSIDE RECORDS SUMMARY | 2024-07-16 12:28 | XMS_ITS | Encounter Summary ---
Author Organization [facility] Address [address] [place] [address] Care Team Providers Care Tamale Maker Name Role Phone Gael Coffman MD Primary Care Provider Unavail able Aram Modi MD Primary Care Provider Yanet Gilmore Pcp Primary Care Provider UnavailRavinder Wallace MD Unavailable [phone] Fabien Burgos NP Unavailable [phone] Aram Modi MD Primary Care Provider Angelica Cardozo MD Unavailable [phone] Encounter Details Date Type Department Care Team Description 12/25/2010 [facility] Medical Records [address] [place] [address] Sascha Keller MD Social History Tobacco Use [...] on filedocumented in this encounter Care Teams Tamale Maker Relationship Specialty Start Date End Date Gael Coffman MD PCP - General 06/10/01 04/21/17 Aram Modi MD PCP - General Internal Medicine 04/22/17 09/10/20 [facility], Pcp PCP - General Internal Medicine 09/11/20 02/17/23 Aram Modi MD PCP - General Internal Medicine 02/18/23 Ravinder Jose MD Specialist Cardiology 02/11/23 Fabien Burgos NP Specialist Cardiology 02/11/23 Angelica Price MD [address] [place] [address] Specialist Cardiology 03/11/23 documented as of this encounter
--- OUTSIDE RECORDS SUMMARY | 2024-07-16 12:28 | XMS_ITS | Encounter Summary ---
Author Organization [facility] Address [address] [place] [address] Care Team Providers Care Quill Machine Operator Name Role Phone Gael Coffman MD Primary Care Provider Unavail able Aram Modi MD Primary Care Provider Yanet Gilmore Pcp Primary Care Provider UnavailRavinder Wallace MD Unavailable [phone] Fabien Burgos NP Unavailable [phone] Aram Modi MD Primary Care Provider Angelica Cardozo MD Unavailable Encounter Details Date Type Department Care Team Description 07/06/2015 Hydro Plant Operator Report Medical Records [address] [place] [address] Reilly Gaffney MD Social History Tobacco Use [...] on filedocumented in this encounter Care Teams Quill Machine Operator Relationship Specialty Start Date End Date Gael Coffman MD PCP - General 06/10/01 04/21/17 Aram Modi MD PCP - General Internal Medicine 04/22/17 09/10/20 [facility], Pcp PCP - General Internal Medicine 09/11/20 02/17/23 Aram Modi MD PCP - General Internal Medicine 02/18/23 Ravinder Jose MD Specialist Cardiology 02/11/23 Fabien Burgos NP Specialist Cardiology 02/11/23 Angelica Price MD [address] [place] [address] Specialist Cardiology 03/11/23 documented as of this encounter
--- OUTSIDE RECORDS SUMMARY | 2024-07-16 12:28 | XMS_ITS | Encounter Summary ---
Author Organization [facility] Address [address] [place] [address] Care Team Providers Care Ecological Economist Name Role Phone Ravinder Jose MD Unavailable [phone] Fabien Burgos NP Unavailable [phone] Aram Modi MD Primary Care Provider Angelica Cardozo MD Unavailable [phone] Encounter Details Date Type Department Care Team Description 03/21/2023 Refill Medicine/Pediatrics - [address] [address] Sal Finney PA-C Social History Tobacco Use [...] present documented in this encounter Care Teams Ecological Economist Relationship Specialty Start Date End Date Aram Modi MD PCP - General Internal Medicine 02/18/23 Ravinder Jose MD Specialist Cardiology 02/11/23 Fabien Burgos NP Specialist Cardiology 02/11/23 Angelica Price MD 300 [facility] [address] [place] [address] Specialist Cardiology 03/11/23 documented as of this encounter
--- OUTSIDE RECORDS SUMMARY | 2024-07-16 12:28 | XMS_ITS | Encounter Summary ---
Author Organization [facility] Address [address] [place] [address] Care Team Providers Care Job Printer Apprentice Name Role Phone Ravinder Jose MD Unavailable [phone] Fabien Burgos NP Unavailable [phone] Aram Modi MD Primary Care Provider Angelica Cardozo MD Unavailable [phone] Encounter Details Date Type Department Care Team Description 03/18/2023 [facility] Medical Records [address] [place] [address] Abstract, Provider Social History Tobacco Use Types [...] on filedocumented in this encounter Care Teams Job Printer Apprentice Relationship Specialty Start Date End Date Aram Modi MD PCP - General Internal Medicine 02/18/23 Ravinder Jose MD Specialist Cardiology 02/11/23 Fabien Burgos NP Specialist Cardiology 02/11/23 Angelica Price MD [address] [address] Specialist Cardiology 03/11/23 documented as of this encounter
--- OUTSIDE RECORDS SUMMARY | 2024-07-16 12:28 | XMS_ITS | Encounter Summary ---
Author Organization [facility] Address [address] [place] [address] Care Team Providers Care Sap Plant Maintenance Consultant Name Role Phone Gael Coffman MD Primary Care Provider Unavail able Aram Modi MD Primary Care Provider Yanet Gilmore Pcp Primary Care Provider UnavailRavinder Wallace MD Unavailable [phone] Fabien Burgos NP Unavailable [phone] Aram Modi MD Primary Care Provider Angelica Cardozo MD Unavailable [phone] Encounter Details Date Type Department Care Team Description 07/06/2015 [facility] Medical Records [address] [place] [address] Social History Tobacco Use Types Packs/Day Years [...] on filedocumented in this encounter Care Teams Sap Plant Maintenance Consultant Relationship Specialty Start Date End Date Gael Coffman MD PCP - General 06/10/01 04/21/17 Aram Modi MD PCP - General Internal Medicine 04/22/17 09/10/20 [facility], Pcp PCP - General Internal Medicine 09/11/20 02/17/23 Aram Modi MD PCP - General Internal Medicine 02/18/23 Ravinder Jose MD Specialist Cardiology 02/11/23 Fabien Burgos NP Specialist Cardiology 02/11/23 Angelica Price MD [address] [place] [address] Specialist Cardiology 03/11/23 documented as of this encounter
--- OUTSIDE RECORDS SUMMARY | 2024-07-16 12:28 | XMS_ITS | Encounter Summary ---
Author Organization [facility] Address [address] [place] [address] Care Team Providers Care Vertical Contour Band Saw Operator Name Role Phone Gael Coffman MD Primary Care Provider Unavail able Aram Modi MD Primary Care Provider Yanet Gilmore Pcp Primary Care Provider UnavailRavinder Wallace MD Unavailable [phone] Fabien Burgos NP Unavailable [phone] Aram Modi MD Primary Care Provider Angelica Cardozo MD Unavailable [phone] Encounter Details Date Type Department Care Team Description 11/08/2015 Pt. Non Urgent Medical Question Rheumatology - [place] [address] [place] [address] Simon Garcia MD Social History Tobacco Use [...] on filedocumented in this encounter Care Teams Vertical Contour Band Saw Operator Relationship Specialty Start Date End Date Gael Coffman MD PCP - General 06/10/01 04/21/17 Aram Modi MD PCP - General Internal Medicine 04/22/17 09/10/20 [facility], Pcp PCP - General Internal Medicine 09/11/20 02/17/23 Aram Modi MD PCP - General Internal Medicine 02/18/23 Ravinder Jose MD Specialist Cardiology 02/11/23 Fabien Burgos NP Specialist Cardiology 02/11/23 Angelica Priec MD [address] [place] [address] Specialist Cardiology 03/11/23 documented as of this encounter
--- OUTSIDE RECORDS SUMMARY | 2024-07-16 12:28 | XMS_ITS | Encounter Summary ---
Author Organization [facility] Address [address] [place] [address] Care Team Providers Care Metal Hardener Name Role Phone Gael Coffman MD Primary Care Provider Unavail able Aram Modi MD Primary Care Provider Yanet Gilmore Pcp Primary Care Provider UnavailRavinder Wallace MD Unavailable [phone] Fabien Burgos NP Unavailable Aram Modi MD Primary Care Provider Angelica Cardozo MD Unavailable [phone] Encounter Details Date Type Department Care Team Description 05/18/2012 [facility] Medical Records [address] [place] [address] Shamar Cortes MD Social History Tobacco Use [...] filedocumented in this encounter Care Teams Metal Hardener Relationship Specialty Start Date End Date Gael Coffman MD PCP - General 06/10/01 04/21/17 Aram Modi MD PCP - General Internal Medicine 04/22/17 09/10/20 [facility], Pcp PCP - General Internal Medicine 09/11/20 02/17/23 Aram Modi MD PCP - General Internal Medicine 02/18/23 Ravinder Jose MD Specialist Cardiology 02/11/23 Fabien Burgos NP Specialist Cardiology 02/11/23 Angelica Price MD [address] [place] [address] Specialist Cardiology 03/11/23 documented as of this encounter
--- OUTSIDE RECORDS SUMMARY | 2024-07-16 12:28 | XMS_ITS | Encounter Summary ---
Author Organization [facility] Address [address] [place] [address] Care Team Providers Care Gas Engine Operator Name Role Phone Gael Coffman MD Primary Care Provider Unavail able Aram Modi MD Primary Care Provider Yanet Gilmore Pcp Primary Care Provider UnavailRavinder Wallace MD Unavailable [phone] Fabien Burgos NP Unavailable [phone] Aram Modi MD Primary Care Provider Angelica Cardozo MD Unavailable [phone] Encounter Details Date Type Department Care Team Description 12/18/2011 Transfer Records Medical Records [address] [place] [address] Abstract, Provider Social History Tobacco Use Types [...] filedocumented in this encounter Care Teams Gas Engine Operator Relationship Specialty Start Date End Date Gael Coffman MD PCP - General 06/10/01 04/21/17 Aram Modi MD PCP - General Internal Medicine 04/22/17 09/10/20 [facility], Pcp PCP - General Internal Medicine 09/11/20 02/17/23 Aram Modi MD PCP - General Internal Medicine 02/18/23 Ravinder Jose MD Specialist Cardiology 02/11/23 Fabien Burgos NP Specialist Cardiology 02/11/23 Angelica Price MD [address] [place] [address] Specialist Cardiology 03/11/23 documented as of this encounter
--- OUTSIDE RECORDS SUMMARY | 2024-07-16 12:28 | XMS_ITS | Encounter Summary ---
Author Organization [facility] Address [address] [place] [address] Care Team Providers Care Transport Driver Name Role Phone Gael Coffman MD Primary Care Provider Unavail able Aram Modi MD Primary Care Provider Luis E Parker Primary Care Provider UnavailRavinder Wallace MD Unavailable [phone] Fabien Burgos NP Unavailable [phone] Aram Modi MD Primary Care Provider Angelica Cardozo MD Unavailable [phone] Encounter Details Date Type Department Care Team Description 02/13/2011 Diesel Locomotive Firer/Fireman Report Medical Records [address] [place] [address] Scott Ugalde MD Social History Tobacco Use Types Packs/Day [...] on filedocumented in this encounter Care Teams Transport Driver Relationship Specialty Start Date End Date Gael Coffman MD PCP - General 06/10/01 04/21/17 Aram Modi MD PCP - General Internal Medicine 04/22/17 09/10/20 [facility], Pcp PCP - General Internal Medicine 09/11/20 02/17/23 Aram Modi MD PCP - General Internal Medicine 02/18/23 aRvinder Jose MD Specialist Cardiology 02/11/23 Fabien Burgos NP Specialist Cardiology 02/11/23 Angelica Price MD [address] [place] [address] Specialist Cardiology 03/11/23 documented as of this encounter
--- OUTSIDE RECORDS SUMMARY | 2024-07-16 12:28 | XMS_ITS | Encounter Summary ---
Author Organization [facility] Address [address] [place] [address] Care Team Providers Care Solid Waste Collector Name Role Phone Ravinder Jose MD Unavailable [phone] Fabien Burgos NP Unavailable [phone] Aram Modi MD Primary Care Provider Angelica Cardozo MD Unavailable Encounter Details Date Type Department Care Team Description 03/22/2023 Telephone Cardio PVC POC 154 300 [facility] [address] [place] [address] Danny Hammond MD [address] [facility] [address] [place] [address] Social History Tobacco Use Types Packs/Day Years [...] on filedocumented in this encounter Care Teams Solid Waste Collector Relationship Specialty Start Date End Date Aram Modi MD PCP - General Internal Medicine 02/18/23 Ravinder Jose MD Specialist Cardiology 02/11/23 Fabien Burgos NP Specialist Cardiology 02/11/23 Angelica Price MD [address] [place] [address] Specialist Cardiology 03/11/23 documented as of this encounter
--- OUTSIDE RECORDS SUMMARY | 2024-07-16 12:28 | XMS_ITS | Encounter Summary ---
Author Organization [facility] Address [address] [place] [address] Care Team Providers Care Pacu Nurse Name Role Phone Ravinder Jose MD Unavailable [phone] Fabien Burgos NP Unavailable [phone] Aram Modi MD Primary Care Provider Angelica Cardozo MD Unavailable [phone] Reason for Visit * Reason Onset Date Comments other 07/08/2023 Back injecntions for pain Encounter Details Date Type Department Care Team Description 07/08/2023 Telephone Cardio PVC [facility] [address] [place] [address] Ravinder Jose MD [address] [place] [address] [phone] other (Back injecntions for pain ) Social [...] on filedocumented in this encounter Care Teams Pacu Nurse Relationship Specialty Start Date End Date Aram Modi MD PCP - General Internal Medicine 02/18/23 Ravinder Jose MD Specialist Cardiology 02/11/23 Fabien Burgos NP Specialist Cardiology 02/11/23 Angelica Price MD [address] [address] Specialist Cardiology 03/11/23 documented as of this encounter
--- OUTSIDE RECORDS SUMMARY | 2024-07-16 12:28 | XMS_ITS | Encounter Summary ---
Author Organization [facility] Address [address] [place] [address] Care Team Providers Care Cotton Farmworker Name Role Phone Ravinder Jose MD Unavailable [phone] Fabien Burgos NP Unavailable [phone] Aram Modi MD Primary Care Provider Angelica Cardozo MD Unavailable [phone] Reason for Visit * Reason Onset Date Comments Shortness Of Breath 10/09/2023 Encounter Details Date Type Department Care Team Description 10/09/2023 Telephone Cardio PVC [facility] [address] [place] [phone] Ravinder Jose MD [address] [place] [address] [phone] Shortness Of Breath Social History Tobacco Use [...] documented as of this encounter Results * [place] XTRNL ECG & 48 HR RECORD SCAN STOR W/R&I (10/21/2023) Fabien Burgos NP CARDIOLOGY [facility] documented in this encounter Visit Diagnoses Diagnosis Palpitations- Primary documented in this encounter Care Teams Cotton Farmworker Relationship Specialty Start Date End Date Aram Moid MD PCP - General Internal Medicine 02/18/23 Ravinder Jose MD Specialist Cardiology 02/11/23 Fabien Burgos NP Specialist Cardiology 02/11/23 Angelica Price MD [address] [place] [address] Specialist Cardiology 03/11/23 documented as of this encounter
--- OUTSIDE RECORDS SUMMARY | 2024-07-16 12:28 | XMS_ITS | Clinical Summary ---
Author Organization Unknown Care Team Providers Care Lay Out Inspector Name Role Phone STACIE RODRIGUEZ MD Unavailable Unavailable DARWIN PT, NELL Unavailable Unavailable CLARISA DECKER OPERATOR, NELL Unavailable Unavailable Payers Payer Name Policy Type Policy Number Effective Date Expira tion Date MEDICARE.NGS.PDGM [id number] Problems Condition Name Condition Details Condition Category [...] 05-19 00:00: 00 ATHSCL HEART DISEASE OF [place] CORONARY ARTERY W/O ANG PCTRS Active 05-19 00:00: 00 ATRIOVENTRIC ULAR BLOCK, SECOND DEGREE Active 05-19 00:00: 00 PRESENCE OF CARDIAC PACEMAKER Active 05-19 00:00: 00 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 05-19 00:00: 00 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 05-19 00:00: 00 PERSONAL HISTORY OF MALIGNANT NEOPLASM OF BRONCHUS AND LUNG Active 05-19 00:00: 00 CUSTODIAL (CURRENT) USE OF ASPIRIN Active 05-19 00:00: [...] Comments Future Scheduled Test BED MOBILI TY (PT/DECKER OPERATOR) [code = BED MOBILITY (PT/DECKER OPERATOR)] Future Scheduled Test PT/DECKER OPERATOR TO PROVIDE GAIT TRAINING FOR IMPROVED MOBILITY AND /OR TO NORMALIZE GAIT PATTERN [code = PT/DECKER OPERATOR TO PROVIDE GAIT TRAINING FOR IMPROVED MOBILITY AND /OR TO NORMALIZE GAIT PATTERN] Future Scheduled Test THERAPEUTI C EXERCISES AND ESTABLISHING A HOME EXERCISE PROGRAM (PT/DECKER OPERATOR) [code = THERAPEUTIC EXERCISES AND ESTABLISHING A HOME EXERCISE PROGRAM (PT/DECKER OPERATOR)] Future Scheduled Test PT/DECKER OPERATOR TO PROVIDE STAIR TRAINING [code = PT/DECKER OPERATOR TO PROVIDE STAIR TRAINING] Future Scheduled Test PT / DECKER OPERATOR T O MONITOR AND EDUCATE ON OXYGEN SATURATION DURING ADLS/IADLS, NOTIFY PHYSICIAN AND/OR THE RN CLINICAL CONNECTION WORKER FOR PHYSICIAN NOTIFICATION AND IF O2 SATS BELOW PHYSICIAN ORDERED PARAMETERS AFTER 10 MIN OF REST [code = PT / DECKER OPERATOR TO MONITOR AND EDUCATE ON OXYGEN SATURATION DURING ADLS/IADLS, NOTIFY PHYSICIAN AND/OR THE RN CLINICAL CONNECTION WORKER FOR PHYSICIAN NOTIFICATION AND IF O2 SATS BELOW PHYSICIAN ORDERED PARAMETERS AFTER 10 MIN OF REST] Future Scheduled Test PT / DECKER OPERATOR M AY EDUCATE ON PAIN MANAGEMENT CLINICALLY INDICATED, INCLUDING NON-PHARMACOLOGICAL PAIN REDUCTION TECHNIQUES AND USE OF CRYOTHERAPY OR HEAT UP TO 20 MIN AT A TIME FOR PAIN MANAGEMENT 4 TIMES PER DAY TO RIGHT KNEE [code = PT / DECKER OPERATOR MAY EDUCATE ON PAIN MANAGEMENT CLINICALLY INDICATED, INCLUDING NON-PHARMACOLOGICAL PAIN REDUCTION TECHNIQUES AND USE OF CRYOTHERAPY OR HEAT UP TO 20 MIN AT A TIME FOR PAIN MANAGEMENT 4 TIMES PER DAY TO RIGHT KNEE] Future Scheduled Test AGENCY MAY PERFORM A RESUMPTION OF CARE VISIT FOLLOWING ANY HOSPITAL ADMISSION. PT TO EVALUATE, OBSERVE / ASSESS, AND MONITOR, DECKER OPERATOR TO OBSERVE AND MONITOR, PROVIDE SKILLED THERAPEUTIC INTERVENTION, ACTIVITY, EDUCATION, AND TRAINING TO ADDRESS; [code = AGENCY MAY PERFORM A RESUMPTION OF CARE VISIT FOLLOWING ANY HOSPITAL ADMISSION. PT TO EVALUATE, OBSERVE / ASSESS, AND MONITOR, DECKER OPERATOR TO OBSERVE AND MONITOR, PROVIDE SKILLED THERAPEUTIC INTERVENTION, ACTIVITY, EDUCATION, AND TRAINING TO ADDRESS;] Future Scheduled Test NEUROMUSCU LAR RE-EDUCATION / BALANCE / POSTURAL CONTROL (PT) [code = NEUROMUSCULAR RE-EDUCATION / BALANCE / POSTURAL CONTROL (PT)] Future Scheduled Test PT/DECKER OPERATOR TO TEACH KNEE REPLACEMENT SELF-MANAGEMENT [code = PT/DECKER OPERATOR TO TEACH KNEE REPLACEMENT SELF-MANAGEMENT] Future Scheduled Test PT / DECKER OPERATOR T O OBSERVE WOUND/INCISION AND/OR INTACT DRESSING ON RIGHT KNEE AND REPORT EARLY SIGNS AND SYMPTOMS OF WOUND DETERIORATION, COMPLICATIONS, OR INFECTION TO PHYSICIAN AND/OR THE RN CLINICAL CONNECTION WORKER FOR PHYSICIAN NOTIFICATION. NON REMOVABLE AQUACEL DSG TO BE REMOVED BY SURGEON IN 2 WEEKS AT F/U VISIT [code = PT / DECKER OPERATOR TO OBSERVE WOUND/INCISION AND/OR INTACT DRESSING ON RIGHT KNEE AND REPORT EARLY SIGNS AND SYMPTOMS OF WOUND DETERIORATION, COMPLICATIONS, OR INFECTION TO PHYSICIAN AND/OR THE RN CLINICAL CONNECTION WORKER FOR PHYSICIAN NOTIFICATION. NON REMOVABLE AQUACEL [...] End Date/Time Encounter Type Admission Type Attending [facility] Care Department Encounter ID Discharge Date Discharge Status Discharge Condition Discharge Reason Percent Goals Met 2024-07-01 00:00:00 2024-08-29 00:00:00 Outpatient NEW ADMISSION NELL GRANADOS [facility] [id number] .[id number]
--- OUTSIDE RECORDS SUMMARY | 2024-07-16 12:28 | XMS_ITS | Encounter Summary ---
Author Organization [facility] Address [address] [place] [address] Care Team Providers Care Dairy Associate Name Role Phone Community, Pcp Primary Care Provider UnavailRavinder Wallace MD Unavailable [phone] Fabien Burgos NP Unavailable [phone] Aram Modi MD Primary Care Provider Angelica Cardozo MD Unavailable [phone] Encounter Details Date Type Department Care Team Description 02/17/2023 [facility] Medical Records [address] [place] [id number] [facility] Social History Tobacco Use Types Packs/Day Years [...] on filedocumented in this encounter Care Teams Dairy Associate Relationship Specialty Start Date End Date Community, Pcp PCP - General Internal Medicine 09/11/20 02/17/23 Aram Modi MD PCP - General Internal Medicine 02/18/23 Ravinder Jose MD Specialist Cardiology 02/11/23 Fabien Burgos NP Specialist Cardiology 02/11/23 Angelica Price MD 300 [facility] [address] [place] [address] Specialist Cardiology 03/11/23 documented as of this encounter
--- OUTSIDE RECORDS SUMMARY | 2024-07-16 12:28 | XMS_ITS | Encounter Summary ---
Author Organization [facility] Address [address] [place] [address] Care Team Providers Care Community Advocate Name Role Phone Ravinder Jose MD Unavailable [phone] Fabien Burgos NP Unavailable [phone] Aram Modi MD Primary Care Provider Angelica Cardozo MD Unavailable [phone] Encounter Details Date Type Department Care Team Description 03/05/2023 [facility] Medical Records [address] [place] [id number] Social History Tobacco Use Types Packs/Day Years [...] filedocumented in this encounter Care Teams Community Advocate Relationship Specialty Start Date End Date Aram Mdoi MD PCP - General Internal Medicine 02/18/23 Ravinder Jose MD Specialist Cardiology 02/11/23 Fabien Burgos NP Specialist Cardiology 02/11/23 Angelica Price MD [address] [address] Specialist Cardiology 03/11/23 documented as of this encounter
--- OUTSIDE RECORDS SUMMARY | 2024-07-16 12:28 | XMS_ITS | Encounter Summary ---
Author Organization [facility] Address [address] [place] [address] Care Team Providers Care Voip Network Technician Name Role Phone Gael Coffman MD Primary Care Provider Unavail able Aram Modi MD Primary Care Provider Yanet Gilmore Pcp Primary Care Provider UnavailRavinder Wallace MD Unavailable [phone] Fabien Burgos NP Unavailable [phone] Aram Modi MD Primary Care Provider Angelica Cardozo MD Unavailable [phone] Encounter Details Date Type Department Care Team Description 06/30/2015 [facility] Medical Records [address] [place] [address] Reilly Gaffney MD Social History Tobacco Use [...] on filedocumented in this encounter Care Teams Voip Network Technician Relationship Specialty Start Date End Date Gael Coffman MD PCP - General 06/10/01 04/21/17 Aram Modi MD PCP - General Internal Medicine 04/22/17 09/10/20 [facility], Pcp PCP - General Internal Medicine 09/11/20 02/17/23 Aram Modi MD PCP - General Internal Medicine 02/18/23 Ravinder Jose MD Specialist Cardiology 02/11/23 Fabien Burgos NP Specialist Cardiology 02/11/23 Angelica Price MD [address] [place] [address] Specialist Cardiology 03/11/23 documented as of this encounter
--- OUTSIDE RECORDS SUMMARY | 2024-07-16 12:28 | XMS_ITS | Encounter Summary ---
Author Organization [facility] Address [address] [place] [address] Care Team Providers Care Hospital Pharmacist Name Role Phone Gael Coffman MD Primary Care Provider Unavail able Aram Modi MD Primary Care Provider Yanet Gilmore Pcp Primary Care Provider UnavailRavinder Wallace MD Unavailable [phone] Fabien Burgos NP Unavailable [phone] Aram Modi MD Primary Care Provider Angelica Cardozo MD Unavailable [phone] Encounter Details Date Type Department Care Team Description 06/30/2015 [facility] Medical Records [address] [place] [address] Abstract, Provider Social History Tobacco Use Types [...] on filedocumented in this encounter Care Teams Hospital Pharmacist Relationship Specialty Start Date End Date Gael Coffman MD PCP - General 06/10/01 04/21/17 Aram Modi MD PCP - General Internal Medicine 04/22/17 09/10/20 Community, Pcp PCP - General Internal Medicine 09/11/20 02/17/23 Aram Modi MD PCP - General Internal Medicine 02/18/23 Ravinder Jose MD Specialist Cardiology 02/11/23 Fabien Burgos NP Specialist Cardiology 02/11/23 Angelica Price MD [address] [place] [address] Specialist Cardiology 03/11/23 documented as of this encounter
--- OUTSIDE RECORDS SUMMARY | 2024-07-16 12:28 | XMS_ITS | Encounter Summary ---
Author Organization [facility] Address [address] [place] [address] Care Team Providers Care Consultative Sales Associate Name Role Phone Gael Coffman MD Primary Care Provider Unavail able Aram Modi MD Primary Care Provider Yanet Gilmore Pcp Primary Care Provider UnavailRavinder Wallace MD Unavailable [phone] Fabien Burgos NP Unavailable [phone] Aram Modi MD Primary Care Provider Angelica Cardozo MD Unavailable [phone] Encounter Details Date Type Department Care Team Description 12/25/2010 [facility] Medical Records [address] [place] [address] Sascha Keller MD Social History Tobacco Use [...] on filedocumented in this encounter Care Teams Consultative Sales Associate Relationship Specialty Start Date End Date Gael Coffman MD PCP - General 06/10/01 04/21/17 Aram Modi MD PCP - General Internal Medicine 04/22/17 09/10/20 [facility], Pcp PCP - General Internal Medicine 09/11/20 02/17/23 Aram Modi MD PCP - General Internal Medicine 02/18/23 Ravinder Jose MD Specialist Cardiology 02/11/23 Fbaien Burgos NP Specialist Cardiology 02/11/23 Angelica Price MD [address] [place] [address] Specialist Cardiology 03/11/23 documented as of this encounter
--- OUTSIDE RECORDS SUMMARY | 2024-07-16 12:28 | XMS_ITS | Encounter Summary ---
Author Organization [facility] Address [address] [place] [address] Care Team Providers Care Plant Guide Name Role Phone Gael Coffman MD Primary Care Provider Unavail able Aram Modi MD Primary Care Provider Yanet Gilmore Pcp Primary Care Provider UnavailRavinder Wallace MD Unavailable [phone] Fabien Burgos NP Unavailable Aram Modi MD Primary Care Provider Angelica Cardozo MD Unavailable [phone] Encounter Details Date Type Department Care Team Description 03/21/2016 [facility] Medical Records [address] [place] [address] Reilly Gaffney MD Social History Tobacco Use [...] filedocumented in this encounter Care Teams Plant Guide Relationship Specialty Start Date End Date Gael Coffman MD PCP - General 06/10/01 04/21/17 Aram Modi MD PCP - General Internal Medicine 04/22/17 09/10/20 Community, Pcp PCP - General Internal Medicine 09/11/20 02/17/23 Aram Modi MD PCP - General Internal Medicine 02/18/23 Ravinder Jose MD Specialist Cardiology 02/11/23 Fabien Burgos NP Specialist Cardiology 02/11/23 Angelica Price MD [address] [place] [address] Specialist Cardiology 03/11/23 documented as of this encounter
--- OUTSIDE RECORDS SUMMARY | 2024-07-16 12:28 | XMS_ITS | Encounter Summary ---
Author Organization [facility] Address [address] [place] [address] Care Team Providers Care Hand Woodworking Sander Name Role Phone Gael Coffman MD Primary Care Provider Unavail able Aram Modi MD Primary Care Provider Yanet Gilmore Pcp Primary Care Provider UnavailRavinder Wallace MD Unavailable [phone] Fabien Burgos NP Unavailable [phone] Aram Modi MD Primary Care Provider Angelica Cardozo MD Unavailable Encounter Details Date Type Department Care Team Description 02/06/2011 [facility] Medical Records [address] [place] [address] Trupti Britton Social History Tobacco Use Types [...] filedocumented in this encounter Care Teams Hand Woodworking Sander Relationship Specialty Start Date End Date Gael Coffman MD PCP - General 06/10/01 04/21/17 Aram Modi MD PCP - General Internal Medicine 04/22/17 09/10/20 Community, Pcp PCP - General Internal Medicine 09/11/20 02/17/23 Aram Modi MD PCP - General Internal Medicine 02/18/23 Ravinder Jose MD Specialist Cardiology 02/11/23 Fabien Burgso NP Specialist Cardiology 02/11/23 Angelica Price MD [address] [place] [address] Specialist Cardiology 03/11/23 documented as of this encounter
--- OUTSIDE RECORDS SUMMARY | 2024-07-16 12:28 | XMS_ITS | Encounter Summary ---
Author Organization [facility] Address [address] [place] [address] Care Team Providers Care Auto Apprentice Mechanic Name Role Phone Ravinder Jose MD Unavailable [phone] Fabien Burgos NP Unavailable [phone] Aram Modi MD Primary Care Provider Angelica Cardozo MD Unavailable [phone] Reason for Visit * Reason Onset Date Comments Swelling 11/05/2023 other 11/05/2023 labs Encounter Details Date Type Department Care Team Description 11/05/2023 Telephone Cardio [facility] [address] [place] [address] Ravinder Jose MD [address] [place] [address] [id number] Swelling; other (labs) Social History Tobacco Use Types Packs/Day Years [...] encounter Miscellaneous Notes * Telephone Encounter - N'Traci Mock - 12/01/2023 10:21 AM EDT Sooner appointment booked with patient. * Telephone Encounter - Anat Lozano C.M.A. - 11/24/2023 9:10 AM EDT Received labs. [facility] viewed. Called patient per to see how patient ws feeling. Patient still has quite a bit of edema. Both feet are swelling and the left leg. Patient states he wears compression stockings during the day to help, but still at the end of the day he states his feet look like soccer balls. * Telephone Encounter - Leonie Santana C.M.A. - 11/19/2023 3:49 PM EDT I spoke to Mr Velez and advised as below--he will continue taking the furosemide , he asked me [facility], I have done so. He know someone will call him back in regards to an appt to further assess the edema in his leg LK/NM Per AB pt to be scheduled to have acute swelling discussion- Please let me know if an appt is available or comes up--thank you * Telephone Encounter - Rema Lemons NP - 11/19/2023 3:26 PM EDT Patient will need an office visit to further assess this. At this point he can continue with the furosemide but should update a basic metabolic panel. * Telephone Encounter - Leonie Santana C.M.A. - 11/19/2023 3:04 PM EDT In addition to the msg below connected to previous encounter, he tells me though the swelling is below his knee now, it has still not gotten any better it is still significantly pronounced and he is looking to see what else can be done to help the swelling * Telephone Encounter - Leonie Santana C.M.A. - 11/19/2023 12:25 PM EDT Lvm for pt to cb * Telephone Encounter - Dania Mata - 11/19/2023 10:16 AM EDT Patient calling stating since being on the lasix, he is still having swelling. States it now is going up to his knee. States it is swollen so bad you cannot even tell he has a knee, and his left leg is double in size. Please advise [phone] * Telephone Encounter - Fabien Burgos NP - 11/05/2023 1:57 PM EDT Spoke to patient - had swelling - tried HCTZ and stopped eplerenone. Patient will stop HCTZ, restart eplerenone and start Lasix 40mg daily with BMP in one week. * Telephone Encounter - Leonie Santana C.M.A. - 11/05/2023 9:23 AM EDT I spoke with Cy who has been having issues with leg swelling for quite sometime, he tells me when they stopped it during his hospital stay in July of this year, shortly thereafter the problem with the swelling on his legs worsened, so he took it upon himself to restart the hydrochlorothiazide, this did not help as much as he thought it would he was also given epleronone and instructed if hetakes eplerenone he cannot take the hctz, and more recently his legs have balloned up quite a bit, the indentation takes long to bounce back to normal, he states its like putting your finger in dough, he tells he its slowly creeping up mid knee on his left leg which is the worst of the two, he stopped eplerenone about 1 month ago so he can stay on the hctz 25mg daily. He is urinating a lot , but it also can be due to him being on tamsulosin as well. He is telling me his skin feels very tight. He is doing cardiac rehab twice a week, but due to the swelling finds it hard to ambulate. He states he feels very tired and its hard to put his shoes on due to the swelling and pain despite wearing compression stockings. No discoloration present and legs are not hot to the touch Bp in the am 150/70's and in pm 125/60's hr averaging in the 60's * Telephone Encounter - Damaris Hicks - 11/05/2023 8:40 AM EDT Patient called, he is having swelling in both legs and feet. His left leg is worse and has swellingup to his knee. Please call him back at [phone]. documented in this encounter Plan of Treatment Not on file documented as of this encounter Visit Diagnoses Diagnosis Cardiomyopathy, unspecified type (HCC)- Primary documented in this encounter Care Teams Auto Apprentice Mechanic Relationship Specialty Start Date End Date Aram Modi MD PCP - General Internal Medicine 02/18/23 Ravinder Jose MD Specialist Cardiology 02/11/23 Ravinder BurgosFabien, NP Specialist Cardiology 02/11/23 Angelica Price MD [address] [place] [address] Specialist Cardiology 03/11/23 documented as of this encounter
--- OUTSIDE RECORDS SUMMARY | 2024-07-16 12:28 | XMS_ITS | Encounter Summary ---
Author Organization [facility] Address [address] [place] [address] Care Team Providers Care Electrical Designer Name Role Phone Gael Coffman MD Primary Care Provider Unavail able Aram Modi MD Primary Care Provider Yanet lopez [facility] Pcp Primary [facility] Ravinder Salvador MD Unavailable [phone] Fabien Burgos NP Unavailable [phone] Aram Modi MD Primary Care Provider Angelica Cardozo MD Unavailable [phone] Reason for Referral * Non JOSH (Routine) - Closed Specialty Diagnoses / Procedures Referred By Contac t Referred To Contact Rheumatology Procedures REFERRAL TO RHEUMATOLOGY Gael Coffman MD [address] [place] [address] Simon Garcia MD [address] [place] [id number] Referral ID Status Reason Start Date Expiration Date Visits Re quested Visits Authorized [id number] Closed 07/25/2015 07/24/2016 1 1 Encounter Details Date Type Department Care Team Description 07/24/2015 Pt. Non Urgent Medical Question Adult Medicine B - [address] [address] Gael Coffman MD Pain (Primary Dx) Social History Tobacco Use Types [...] Progress Notes * Minoo Decker L.P.N. - 07/25/2015 7:49 AM ESTFrom: Cy Velez To: Gael Coffman MD Sent: 07/24/2015 6:25 PM EST Subject: Joint Pain Dear Dr. Coffman, I was wondering how fast I might get an appointment with a Digital Forensics Investigator. I have seen Dr. Benitez in the past and thru medication i received some relief unfortunately only temporary. He is suggestinginjections but my pain is so wide spred, Where? Also, there is obviously something wrong and I would like to be able to walk and get out of bed without first rolling on the floor. This is real. Approximately 35 years ago I was diagnosed at [facility] with fibromyalgia. For many years I was onb a medication that controlled it. I don't know if this problem has returned but the pain is severe, sometimes in my groin area, then in both hips and continually in my shoulders. I'm not sure but hopeful this is not what 75 years old is suppose to feel like. Any help would be greatly appreciated. The only wayI get thru a day is 600 mg Ibuprofen four times a day. Thank you, Shan Velez documented in this encounter Plan of Treatment Not on file documented as of this encounter Visit Diagnoses Diagnosis Pain- Primary Generalized pain documented in this encounter Care Teams Electrical Designer Relationship Specialty Start Date End Date Gael Coffman MD PCP - General 06/10/01 04/21/17 Aram Modi MD PCP - General Internal Medicine 04/22/17 09/10/20 [facility], Pcp PCP - General Internal Medicine 09/11/20 02/17/23 Aram Modi MD PCP - General Internal Medicine 02/18/23 Ravinder Jose MD Specialist Cardiology 02/11/23 Fabien Burgos NP Specialist Cardiology 02/11/23 Angelica Price MD [address] [place] [address] Specialist Cardiology 03/11/23 documented as of this encounter
--- OUTSIDE RECORDS SUMMARY | 2024-07-16 12:29 | XMS_ITS | Encounter Summary ---
Author Organization [facility] Address [address] [place] [address] Care Team Providers Care Senior Paralegal Name Role Phone Gael Coffman MD Primary Care Provider Unavail able Aram Modi MD Primary Care Provider Yanet Gilmore Pcp Primary Care Provider UnavailRavinder Wallace MD Unavailable Fabien Burgos NP Unavailable [phone] Aram Modi MD Primary Care Provider Angelica Cardozo MD Unavailable [phone] Reason for Visit * Reason Onset Date Comments medication problems 10/12/2014 Encounter Details Date Type Department Care Team Description 10/12/2014 Pt. Non Urgent Medical Question Adult Medicine - [place] [address] [place] [address] Gael Coffman MD Social History Tobacco Use [...] Progress Notes * Vanessa Alanis L.P.N. - 10/13/2014 7:29 AM EDTFrom: Cy Velez To: Gael Coffman MD Sent: 10/12/2014 11:34 PM EDT Subject: Inspra / tier Exception Dear Dr. Coffman Thank you for writing the letter for a tier exception for Inspra. The exception was denied. I take two per day. If I decrease to one, is there something else I may take with the Inspra. Eplerenone has bad side effects for me. Is there anything else I may take documented in this encounter Plan of Treatment Not on file documented as of this encounter Visit Diagnoses Not on filedocumented in this encounter Care Teams Senior Paralegal Relationship Specialty Start Date End Date Gael Coffman MD PCP - General 06/10/01 04/21/17 Aram Modi MD PCP - General Internal Medicine 04/22/17 09/10/20 [facility] PCP - General Internal Medicine 09/11/20 02/17/23 Aram Modi MD PCP - General Internal Medicine 02/18/23 Ravinder Jose MD Specialist Cardiology 02/11/23 Fabien Burgos NP Specialist Cardiology 02/11/23 Angelica Price MD [address] [place] [address] Specialist Cardiology 03/11/23 documented as of this encounter
--- OUTSIDE RECORDS SUMMARY | 2024-07-16 12:29 | XMS_ITS | Encounter Summary ---
Author Organization [facility] Address [address] [place] [address] Care Team Providers Care Check And Transfer Beader Name Role Phone Gael Coffman MD Primary Care Provider Unavail able Aram Modi MD Primary Care Provider Yanet Gilmore Pcp Primary Care Provider UnavailRavinder Wallace MD Unavailable [phone] Fabien Burgos NP Unavailable [phone] Aram Modi MD Primary Care Provider Angelica Cardozo MD Unavailable [phone] Reason for Visit * Reason Onset Date Comments Mychart Rx Refill 09/18/2014 Encounter Details Date Type Department Care Team Description 09/18/2014 Pt. Non Urgent Medical Question Adult Medicine - [address] [address] Gael Coffman MD Social History Tobacco Use [...] MG 90 pcs. /3 months supply to [address] Luis Felder. Thank You documented in this encounter Plan of Treatment Not on file documented as of this encounter Visit Diagnoses Not on filedocumented in this encounter Care Teams Check And Transfer Beader Relationship Specialty Start Date End Date Gael Coffman MD PCP - General 06/10/01 04/21/17 Aram Modi MD PCP - General Internal Medicine 04/22/17 09/10/20 [facility] PCP - General Internal Medicine 09/11/20 02/17/23 Aram Modi MD PCP - General Internal Medicine 02/18/23 Ravinder Jose MD Specialist Cardiology 02/11/23 Fabien Burgos NP Specialist Cardiology 02/11/23 Angelica Price MD [address] [facility] [address] [place] [address] Specialist Cardiology 03/11/23 documented as of this encounter
--- OUTSIDE RECORDS SUMMARY | 2024-07-16 12:29 | XMS_ITS | Encounter Summary ---
Author Organization [facility] Address [address] [place] [address] Care Team Providers Care Assembler Metal Furniture Name Role Phone Aram Modi MD Primary Care Provider Yanet Gilmore Pcp Primary Care Provider [facility] Ravinder Salvador MD Unavailable [phone] Fabien Burgos NP Unavailable [phone] Aram Modi MD Primary Care Provider Unava Angelica Russell MD Unavailable [phone] Encounter Details Date Type Department Care Team Description 07/22/2017 Telephone Medicine/Pediatrics - [address] [phone] Aram Modi MD Social History Tobacco Use [...] on filedocumented in this encounter Care Teams Assembler Metal Furniture Relationship Specialty Start Date End Date Aram Modi MD PCP - General Internal Medicine 04/22/17 09/10/20 [facility] PCP - General Internal Medicine 09/11/20 02/17/23 Aram Modi MD PCP - General Internal Medicine 02/18/23 Ravinder Jose MD Specialist Cardiology 02/11/23 Fabien Burgos NP Specialist Cardiology 02/11/23 Angelica Price MD [address] [place] [address] Specialist Cardiology 03/11/23 documented as of this encounter
--- OUTSIDE RECORDS SUMMARY | 2024-07-16 12:29 | XMS_ITS | Encounter Summary ---
Author Organization [facility] Address [address] [place] [address] Care Team Providers Care Code Number Stamper Name Role Phone Gael Coffman MD Primary Care Provider Unavail able Aram Modi MD Primary Care Provider Yanet Gilmore Pcp Primary Care Provider UnavailRavinder Wallace MD Unavailable [phone] Fabien Burgos NP Unavailable [phone] Aram Modi MD Primary Care Provider Angelica Cardozo MD Unavailable [phone] Reason for Visit * Reason Onset Date Comments Prior Authorization 10/12/2014 letter of de nial for inspra Encounter Details Date Type Department Care Team Description 10/12/2014 Telephone Adult Medicine [facility] [address] [place] [address] Gael Coffman MD Prior Authorization (letter of [...] on filedocumented in this encounter Care Teams Code Number Stamper Relationship Specialty Start Date End Date Gael Coffman MD PCP - General 06/10/01 04/21/17 Aram Modi MD PCP - General Internal Medicine 04/22/17 09/10/20 [facility], Pcp PCP - General Internal Medicine 09/11/20 02/17/23 Aram Modi MD PCP - General Internal Medicine 02/18/23 Ravinder Jose MD Specialist Cardiology 02/11/23 Fabien Burgos NP Specialist Cardiology 02/11/23 Angelica Price MD [address] [place] [address] Specialist Cardiology 03/11/23 documented as of this encounter
--- OUTSIDE RECORDS SUMMARY | 2024-07-16 12:29 | XMS_ITS | Encounter Summary ---
Author Organization [facility] Address [address] [place] [address] Care Team Providers Care Application Helper Name Role Phone Aram Modi MD Primary Care Provider Yanet Gilmore Pcp Primary Care Provider [facility] Ravinder Salvador MD Unavailable [phone] Fabien Burgos NP Unavailable [phone] Aram Modi MD Primary Care Provider Unava Angelica Russell MD Unavailable [phone] Encounter Details Date Type Department Care Team Description 09/15/2017 Pt. Non Urgent Medical Question Hypertension - [place] [address] [place] [address] Felicitas Love, Pharm.D Benign prostatic hyperplasia, unspecified whether lower urinary tract symptoms present (Primary Dx) Social History Tobacco Use Types [...] as of this encounter Progress Notes * Pharm. GurdeepD - 09/15/2017 8:41 AM EDTFrom: Cy J Rosie To: Pharm. GurdeepD Sent: 09/15/2017 8:01 AM EDT Subject: Prescription Refill Request Not Approved Just sending a message as obviously there must be some sort of an error. In requesting various refills from [facility] I received a letter from them saying they could not fill my request for Tamsulosin as it was not approved by my doctor. I feel this must have been an oversight. Unless there is a reason that I am not aware of, I am asking that my script be sent in to my local [facility] at your earliest possible convenience as I am almost out of this med. Obviously, if there is a reason I should not be taking this medication please advise. Thank You, Shan Velez documented in this encounter Plan of Treatment Not on file documented as of this encounter Visit Diagnoses Diagnosis Benign prostatic hyperplasia, unspecified whether lower urinary tract symptoms present- Primary documented in this encounter Care Teams Application Helper Relationship Specialty Start Date End Date Aram Modi MD PCP - General Internal Medicine 04/22/17 09/10/20 [facility] PCP - General Internal Medicine 09/11/20 02/17/23 Aram Modi MD PCP - General Internal Medicine 02/18/23 Ravinder Jose MD Specialist Cardiology 02/11/23 Fabien Burgos NP Specialist Cardiology 02/11/23 Angelica Price MD [address] [place] [address] Specialist Cardiology 03/11/23 documented as of this encounter
--- OUTSIDE RECORDS SUMMARY | 2024-07-16 12:29 | XMS_ITS | Encounter Summary ---
Author Organization [facility] Address [address] [place] [address] Care Team Providers Care Supervisor Cabinetmaker Name Role Phone Aram Modi MD Primary Care Provider Yanet Gilmore Pcp Primary Care Provider [facility] Ravinder Salvador MD Unavailable [phone] Fabien Burgos NP Unavailable [phone] Aram Modi MD Primary Care Provider Unava Angelica Russell MD Unavailable [phone] Encounter Details Date Type Department Care Team Description 07/08/2017 Telephone Medicine/Pediatrics - [address] [phone] Aram Modi MD Social History Tobacco Use [...] Telephone Encounter - Aram Modi MD - 07/08/2017 5:01 PM EST Kj Polk, I saw Mr. Velez in clinic today, please see my note. I wanted to touch base regarding his HTN management to better understand his hx and symptoms in relation to his meds, discuss ?ambulatory bloodpressure monitoring to see if symtpoms are driven by elevated BP or otherwise (he also noted havingvery low BP at one time in the ?60s or 70s systolic in the past). Please call me at [phone] or send savita chart message to figure out a time to talk. Thanks, Shiv Modi documented in this encounter Plan of Treatment Not on file documented as of this encounter Visit Diagnoses Not on filedocumented in this encounter Care Teams Supervisor Cabinetmaker Relationship Specialty Start Date End Date Aram Modi MD PCP - General Internal Medicine 04/22/17 09/10/20 [facility] PCP - General Internal Medicine 09/11/20 02/17/23 Aram Modi MD PCP - General Internal Medicine 02/18/23 Ravinder Jose MD Specialist Cardiology 02/11/23 Fabien Burgos NP Specialist Cardiology 02/11/23 Angelica Price MD [address] [facility] [address] [place] [address] Specialist Cardiology 03/11/23 documented as of this encounter
--- OUTSIDE RECORDS SUMMARY | 2024-07-16 12:29 | XMS_ITS | Encounter Summary ---
Author Organization [facility] Address [address] [place] [address] Care Team Providers Care Abalone Diver Name Role Phone Gael Coffman MD Primary Care Provider Unavail able Aram Modi MD Primary Care Provider uLis E Parker Primary Care Provider UnavailRavinder Wallace MD Unavailable [phone] Fabien Burgos NP Unavailable [phone] Aram Modi MD Primary Care Provider Angelica Cardozo MD Unavailable [phone] Encounter Details Date Type Department Care Team Description 11/02/2014 Business Doc Medical Records [address] [place] [address] Abstract, Provider Social History Tobacco Use Types [...] on filedocumented in this encounter Care Teams Abalone Diver Relationship Specialty Start Date End Date Gael Coffman MD PCP - General 06/10/01 04/21/17 Aram Modi MD PCP - General Internal Medicine 04/22/17 09/10/20 [facility] PCP - General Internal Medicine 09/11/20 02/17/23 Aram Modi MD PCP - General Internal Medicine 02/18/23 Ravinder Jose MD Specialist Cardiology 02/11/23 Fabien Burgos NP Specialist Cardiology 02/11/23 Angelica Price MD [address] [place] [address] Specialist Cardiology 03/11/23 documented as of this encounter
--- OUTSIDE RECORDS SUMMARY | 2024-07-16 12:29 | XMS_ITS | Encounter Summary ---
Author Organization [facility] Address [address] [place] [address] Care Team Providers Care City Letter Carrier Name Role Phone Aram Modi MD Primary Care Provider Yanet Gilmore Pcp Primary Care Provider UnavailRavinder Wallace MD Unavailable [phone] Fabien Burgos NP Unavailable [phone] Aram Modi MD Primary Care Provider Angelica Cardozo MD Unavailable [phone] Encounter Details Date Type Department Care Team Description 04/15/2018 Transfer Records Medical Records [address] [place] [address] Abstract, Provider Social History Tobacco Use Types [...] on filedocumented in this encounter Care Teams City Letter Carrier Relationship Specialty Start Date End Date Aram Modi MD PCP - General Internal Medicine 04/22/17 09/10/20 [facility], Pcp PCP - General Internal Medicine 09/11/20 02/17/23 Aram Modi MD PCP - General Internal Medicine 02/18/23 Ravinder Jose MD Specialist Cardiology 02/11/23 Fabien Burgos NP Specialist Cardiology 02/11/23 Angelica Price MD [address] [address] Specialist Cardiology 03/11/23 documented as of this encounter
--- OUTSIDE RECORDS SUMMARY | 2024-07-16 12:29 | XMS_ITS | Clinical Summary ---
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 [address] [place] [address] Aram Modi MD Medical Records 05/25/2024 7:30 PM EST Ancillary Procedure [facility] [address] [place] [address] 05/20/2024 Telephone [facility] [address] [facility] [address] [place] [address] Aram Modi MD Medical Records 05/18/2024 7:30 AM EST Ancillary Procedure [facility] [address] [place] [phone] Suspected DVT (deep vein thrombosis); Chest pain on breathing 05/17/2024 1:30 PM EST Consult [facility] [address] [facility] [address] [place] [phone] Brooklynn Church MD Other cardiomyopathy (CMS/HCC) (Primary Dx); Primary hypertension; Pure hypercholesterolemia; Stage 3 chronic kidney disease, unspecified whether stage 3a or 3b CKD (CMS/HCC); Polymyalgia rheumatica (CMS/HCC); Second degree heart block; Suspected DVT (deep vein thrombosis); Chest pain on breathing 05/13/2024 Telephone [facility] [address] [facility] [address] [address] [place] [address] Brooklynn Church MD 05/06/2024 Telephone [facility] [address] [place] [address] Brooklynn Church MD medication 04/28/2024 Telephone [facility] [address] [place] [address] Aram Modi MD Medical Records 04/20/2024 8:30 AM EST Ancillary Procedure [facility] [address] [place] [address] Encounter for adjustment or management of cardiac device 04/20/2024 Telephone [facility] [address] [place] [address] Ricardo Gardner RN from Last 3 Months Immunizations Name Administration Dates Next Due Influenza Quadravalent, 0.5m l (Fluad) 65yo and older 04/15/2022 Influenza trivalent, 0.5mL ( Fluad) 65yo and older 02/14/2020,02/17/2017 Influenza trivalent, 0.5mL, preservative free (Fluarix; FluLaval; Fluzone) ages 6mo and older (Afluria) 3 years and older 02/27/2015,05/02/2014,04/01/2012,02/07,03/22/2008,03/22/2005 Influenza, Unspecified 03/16/2019,02/26/2016 PPD Test 06/23/2000 Modumetal SARS-CoV-2 COVID-19, mRNA, LNP-S, preservative free 07/23/2020,06/25/2020 Pneumococcal conjugate 13 va lent (Prevnar 13, PCV13) 2mo and older 11/02/2014 Pneumococcal polysaccharide 23 valent (Pneumovax 23) 2yo and older 09/16/2013,01/15/2002 Td Tetanus diptheria (Tdvax) 7yo and older 11/29/2008 Tdap Tetanus diptheria acell ular pertussis (Boostrix; Adacel) 7yo and older 05/17/2016 Zoster Live 12/24/2013 Surgical History Surgery Date Site/Laterality Comments OTHER SURGICAL HISTORY 2004 PROCEDURE: VA RMVL LUNG OTHER THAN PNEUMONECTOMY 1 LOBE LOBECT; COMMENT: LLL for Ca OTHER SURGICAL HISTORY 05/22/12 PROCEDURE: NUCLEAR STRESS TEST REPORT; COMMENT: Nerissa Villanueva, Neg OTHER SURGICAL HISTORY 01/30 PROCEDURE: OUTSIDE NUCLEAR STRESS TEST; COMMENT: neg OTHER SURGICAL HISTORY 01/30 PROCEDURE: CTA CHEST; W/WO CONTRAST MAT; COMMENT: neg COLONOSCOPY 06/29/04 PROCEDURE: HISTORICAL COLONOSCOPY; COMMENT: Nataly perry COLONOSCOPY 03/01 [facility] PROCEDURE: HISTORICAL COLONOSCOPY; COMMENT: devika Shipley; otherwise normal to terminal ileum with normal colonic bxys. UPPER GASTROINTESTINAL ENDOSCOPY 03/01 [facility] PROCEDURE: [facility] UPPER GI ENDOSCOPY PERFORMED; COMMENT: NOrmal, with normal duodenal biopsies UPPER GASTROINTESTINAL ENDOSCOPY 12/26/2010 PROCEDURE: [facility] UPPER GI ENDOSCOPY PERFORMED; COMMENT: Minimal erosive gastritis; [facility]; bx negative for H. pylori. KNEE SURGERY 2016 PROCEDURE: HISTORICAL KNEE SURGERY Medical History Medical History Date Comments BPH (benign prostatic hyperplasia) 09/15/2017 DX:BPH (benign prostatic hyperplasia) Chronic pruritus 10/23/2015 DX:Chronic prur itus Chronic rhinitis 03/22/2008 DX:Chronic rhin itis CKD (chronic kidney disease) stage 3, GFR 30-59 ml/min ([facility]/HCC) 10/28/2013 DX:CKD (chronic kidney dise ase) stage 3, GFR 30-59 ml/min ([facility]); COMMENT: GFR 53 on 08/18/12. Cystic mass [...] apnea 03/29/2014 DX:Obstr uctive sleep apnea; COMMENT: [facility] Home Polysomnogram: Date 02/13/2017; AHI 12, [...] Description 10/28/2024 9:10 AM EDT Office Visit [facility] [address] [place] [address] Fabien Burgos NP [address] [place] [address] [address] [place] [address] 04/20/2025 8:00 AM EST Ancillary Procedure [facility] [address] [facility] [address] [place] [address] Health Maintenance Due Date Last [...] this topic Medical Devices Implanted Type Area Supervisor Malted Milk Device Identifier Shelf Expiration Date Model / Serial / Lot Bsci-Crm [id number] Implanted:02/16 (Quantity not on file) Cardiac GLAZE SUPERVISOR-P [employer] [employer] RHYTHM MGMT [id number] / [id number] / Procedures Procedure Name Priority Date/Time Associated [...] 7:29 PM EST) Date Time Interrogation Session [id number] CV DEVICE CHECK Type Interrogation Session Remote Scheduled CV DEVICE CHECK Implantable Pulse Generator Supervisor Malted Milk BSX CV DEVICE CHECK Implantable Pulse Generator Type GLAZE SUPERVISOR-P CV DEVICE CHECK Implantable Pulse Generator Model U128 CV DEVICE CHECK Implantable Pulse Generator Serial Number [id number] CV DEVICE CHECK Implantable Pulse Generator Implant Date 20230305 CV DEVICE CHECK Battery Remaining Percentage 100.00 CV DEVICE CHECK Battery Remaining Longevity 114.0 CV DEVICE CHECK Battery Status Beginning of Service CV DEVICE CHECK Ayan Statistic RA Percent Paced 41.00 CV DEVICE CHECK Ayan Statistic RV Percent Paced 100.00 CV DEVICE CHECK GLAZE SUPERVISOR Statistic LV Percent Paced 100.00 CV DEVICE CHECK Atrial Tachy Statistic AT/AF [place] Percent 0.00 CV DEVICE CHECK Lead Channel [...] CV DEVICE CHECK Ventricular chambers paced during GLAZE SUPERVISOR pacing. BiV CV DEVICE CHECK Ayan Setting Lower Rate Limit 60 CV DEVICE CHECK Ayan Setting AT Mode Switch Rate 170 CV DEVICE CHECK Ayan Setting Maximum Tracking Rate 130 CV DEVICE CHECK Ayan Setting Maximum Sensor Rate 130 CV DEVICE CHECK Ayan Setting PAV Delay 150 CV DEVICE CHECK Ayan Setting SUZY Delay 100 CV DEVICE CHECK GLAZE SUPERVISOR LV-RV Delay 0 CV D EVICE CHECK [...] us Darleen FISCHER CV IMPLANTABLE CARDIAC DEVICE VA OCEDURES Final Result * Vascular US duplex [...] the left leg. The vessels showed compressibility. Ophthalmic Technician Apprentice Details A call scale, color and doppler [...] GEMUSE QTc 466 ms GEMUSE P Wave [place] 25 degrees GEMUSE R [place] 0 degrees GEMUSE T [place] 82 degrees GEMUSE ECG Interpretation AV dual-paced [...] 8:31 AM EST) Date Time Interrogation Session [id number] CV DEVICE CHECK Implantable Pulse Generator Supervisor Malted Milk BSX CV DEVICE CHECK Implantable Pulse Generator Type GLAZE SUPERVISOR-P CV DEVICE CHECK Implantable Pulse Generator Model U128 CV DEVICE CHECK Implantable Pulse Generator Serial Number [id number] CV DEVICE CHECK Implantable Pulse Generator Implant [...] CV DEVICE CHECK Ventricular chambers paced during GLAZE SUPERVISOR pacing. BiV CV DEVICE CHECK Ayan Setting [...] * Annual BMP Blood Test (12/02/2022) Pathologist [facility] Annual BMP Blood Test abstracted Historical Provider HEALTH MAINTENANCE Final Result * (ABNORMAL) Lipid panel (09/28/2019) Pathologist [facility] LDL/HDL Ratio 4 0 - 4 Triglycerides 290(A) 0 - 150 mg/dL Cholesterol 192 0 - 200 mg/dL HDL 51 >=40 mg/dL LDL Cholesterol 83 0 - 100 mg/dL Blood Venous blood specimen / Unknown Historical Provider LAB BLOOD ORDERABLES Frida l Result from Last 3 Months or Most Recently Relevant to Health Maintenance Insurance MEDICARE [facility] Care Teams Application Developer Relationship Specialty Start Date End Date Aram Modi MD [address] [id number] PCP - General 04/22/17
--- OUTSIDE RECORDS SUMMARY | 2024-07-16 12:29 | XMS_ITS | Encounter Summary ---
Author Organization [facility] Address [address] [place] [address] Care Team Providers Care Outside Sales Representative Name Role Phone Gael Coffman MD Primary Care Provider Unavail able Aram Modi MD Primary Care Provider Yanet Gilmore Pcp Primary Care Provider UnavailRavinder Wallace MD Unavailable [phone] Fabien Burgos NP Unavailable [phone] Aram Modi MD Primary Care Provider Angelica Cardozo MD Unavailable [phone] Reason for Visit * Reason Onset Date Comments Mychart Rx Refill 08/01/2014 Encounter Details Date Type Department Care Team Description 08/01/2014 Pt. Non Urgent Medical Question Adult Medicine - [address] [address] Gael Coffman MD Social History Tobacco Use [...] with note from Dr. Ghazala Fisher of [facility]. Further, a second letter was faxed to your Dept. as Dr. Fisher recommended monthly B12 shots documented in this encounter Plan of Treatment Not on file documented as of this encounter Visit Diagnoses Not on filedocumented in this encounter Care Teams Outside Sales Representative Relationship Specialty Start Date End Date Gael Coffman MD PCP - General 06/10/01 04/21/17 Aram Modi MD PCP - General Internal Medicine 04/22/17 09/10/20 [facility] PCP - General Internal Medicine 09/11/20 02/17/23 Aram Modi MD PCP - General Internal Medicine 02/18/23 Ravinder Jose MD Specialist Cardiology 02/11/23 Fabien Burgos NP Specialist Cardiology 02/11/23 Angelica Price MD [address] [address] Specialist Cardiology 03/11/23 documented as of this encounter
--- OUTSIDE RECORDS SUMMARY | 2024-07-16 12:29 | XMS_ITS | Encounter Summary ---
Author Organization [facility] Address [address] [place] [address] Care Team Providers Care Coal Feeder Operator Name Role Phone Aram Modi MD Primary Care Provider Unakuldeep Gilmore Pcp Primary Care Provider [facility] Ravinder Salvador MD Unavailable [phone] Fabien Burgos NP Unavailable [phone] Aram Modi MD Primary Care Provider Unava Angelica Russell MD Unavailable [phone] Encounter Details Date Type Department Care Team Description 12/22/2017 Pt. Non Urgent Medic al Question Medicine/Pediatrics - [address] [address] Aram Modi MD Social History Tobacco Use [...] Subject: RX Dear Dr. Modi or attending cafe assistant Received second call from [facility] with regard to unanswered prescriptiont request from your office. I am in need of these prescriptions olivas urgent. I was contacted by your office last week by someone who made a new appointment and was advised that the scripts would not be held up. Because I need these scripts now [facility] is requesting a phone call to them to expedite these orders. Please respond that this will be taken care of. Thank you, Cy Velez documented in this encounter Plan of Treatment Not on file documented as of this encounter Visit Diagnoses Not on filedocumented in this encounter Care Teams Coal Feeder Operator Relationship Specialty Start Date End Date Aram Modi MD PCP - General Internal Medicine 04/22/17 09/10/20 [facility] Pcp PCP - General Internal Medicine 09/11/20 02/17/23 Aram Modi MD PCP - General Internal Medicine 02/18/23 Ravinder Jose MD Specialist Cardiology 02/11/23 Fabien Burgos NP Specialist Cardiology 02/11/23 Angelica Price MD [address] [place] [address] Specialist Cardiology 03/11/23 documented as of this encounter
--- OUTSIDE RECORDS SUMMARY | 2024-07-16 12:29 | XMS_ITS | Encounter Summary ---
Author Organization [facility] Address [address] [place] [address] Care Team Providers Care Shot Core Drill Operator Helper Name Role Phone Gael Coffman MD Primary Care Provider Unavail able Aram Modi MD Primary Care Provider Yanet Gilmore Pcp Primary Care Provider UnavailRavinder Wallace MD Unavailable [phone] Fabien Burgos NP Unavailable [phone] Aram Modi MD Primary Care Provider Angelica Cardozo MD Unavailable [phone] Reason for Visit * Reason Onset Date Comments Advice 08/26/2014 Encounter Details Date Type Department Care Team Description 08/26/2014 Pt. Non Urgent Medical Question Adult Medicine - [place] [address] [place] [address] Gael Coffman MD Social History Tobacco Use [...] Subject: B12 shots per Dr. Fisher of [facility] Hi Dr. Coffman Still waiting your response to [facility]'s request that I receive B12 shots monthly. I have a follow upappoint. next week and I am sure that question will be addressed. Thank You Shan Rosie documented in this encounter Plan of Treatment Not on file documented as of this encounter Visit Diagnoses Not on filedocumented in this encounter Care Teams Shot Core Drill Operator Helper Relationship Specialty Start Date End Date Gael Coffman MD PCP - General 06/10/01 04/21/17 Aram Modi MD PCP - General Internal Medicine 04/22/17 09/10/20 [facility], Pcp PCP - General Internal Medicine 09/11/20 02/17/23 Aram Modi MD PCP - General Internal Medicine 02/18/23 Ravinder Jose MD Specialist Cardiology 02/11/23 Fabien Burgos NP Specialist Cardiology 02/11/23 Angelica Price MD [address] [place] [address] Specialist Cardiology 03/11/23 documented as of this encounter
--- OUTSIDE RECORDS SUMMARY | 2024-07-16 12:29 | XMS_ITS | Encounter Summary ---
Author Organization [facility] Address [address] [place] [address] Care Team Providers Care It Solutions Architect Name Role Phone Gael Coffman MD Primary Care Provider Unavail able Aram Modi MD Primary Care Provider Yanet Gilmore Pcp Primary Care Provider UnavailRavinder Wallace MD Unavailable [phone] Fabien Burgos NP Unavailable [phone] Aram Modi MD Primary Care Provider Angelica Cardozo MD Unavailable Encounter Details Date Type Department Care Team Description 10/09/2014 Pt. Non Urgent Medical Question Adult Medicine B - [place] [address] [place] [address] Gael Coffman MD Social History Tobacco Use [...] as of this encounter Progress Notes * Molly Benítez L.P.N. - 10/11/2014 8:36 AM EDTFrom: Cy Barrera Rosie To: Gael Coffman MD Sent: 10/09/2014 10:30 AM EDT Subject: Tier exception Dr. Coffman, Unfortunately, Inspra is the only medication that has been able to control my BP. The problem is a 90 days supply is now $441.54. This is the riciculous amount of $1,766.16 poer year for this one medication. In talking with a [facility] service rep he said there was a good possibility this waller could be reduced with a letter from your doctor requesting a tier exception . I would greatly appreciate it if you could write this letter before sending in the script for the additional 90 tabs. Thank you Shan Velez documented in this encounter Plan of Treatment Not on file documented as of this encounter Visit Diagnoses Not on filedocumented in this encounter Care Teams It Solutions Architect Relationship Specialty Start Date End Date Gael Coffman MD PCP - General 06/10/01 04/21/17 Aram Modi MD PCP - General Internal Medicine 04/22/17 09/10/20 [facility], Pcp PCP - General Internal Medicine 09/11/20 02/17/23 Aram Modi MD PCP - General Internal Medicine 02/18/23 Ravinder Jose MD Specialist Cardiology 02/11/23 Fabien Burgos NP Specialist Cardiology 02/11/23 Angelica Price MD [address] [address] Specialist Cardiology 03/11/23 documented as of this encounter
--- OUTSIDE RECORDS SUMMARY | 2024-07-16 12:29 | XMS_ITS | Encounter Summary ---
Author Organization [facility] Address [address] [place] [address] Care Team Providers Care Munitions Factory Worker Name Role Phone Aram Modi MD Primary Care Provider Unakuldeep Gilmore Pcp Primary Care Provider [facility] Ravinder Salvador MD Unavailable [phone] Fabien Burgos NP Unavailable [phone] Aram Modi MD Primary Care Provider Unava Angelica Russell MD Unavailable [phone] Encounter Details Date Type Department Care Team Description 05/23/2017 Telephone Medicine/Pediatrics - [address] [address] Aram Modi MD Social History Tobacco Use [...] - 100 mg/dL 08/06/2017 6:01 PM T [facility] Comment: Reference range applicable to fasting specimens only Based on recommendations from the ADA and AACE, the fasting glucose reference range has been changed to 70-100 mg/dL. ??This change is effective October 02, 2009 BUN 38(H) 5 - 25 mg/dL 08/06/2017 6:01 PM [facility] CREAT 1.6(H) 0.7 - 1.5 mg/dL 08/06/2017 6:01 PM [facility] GFR 45(L) >60 08/06/2017 6:01 PM [facility] Comment: If patient is -Salvadorean, multiply result by 1.21 Chronic Kidney Disease: < 60 ml/min/1.73 square meters Kidney Failure: < 15 ml/min/1.73 square meters Sodium 139 133 - 145 mEq/L 08/06/2017 6:01 PM T [facility] Potassium 4.9 3.5 - 5.5 mEq/L 08/06/2017 6:01 PM [facility] Chloride 101 96 - 108 mEq/L 08/06/2017 6:01 PM [facility] CO2 26.8 21.0 - 32.0 mEq/L 08/06/2017 6:01 PM [facility] CALCIUM 9.7 8.5 - 10.5 mg/dL 08/06/2017 6:01 PM [facility] 08/06/2017 1:11 PM EDT 08/06/2017 1:11 PM EDT Aram Modi MD LAB [facility] [address] [facility] documented in this encounter Visit Diagnoses Diagnosis Essential hypertension- Primary Unspecified essential hypertension documented in this encounter Care Teams Munitions Factory Worker Relationship Specialty Start Date End Date Aram Modi MD PCP - General Internal Medicine 04/22/17 09/10/20 [facility], Pcp PCP - General Internal Medicine 09/11/20 02/17/23 Aram Modi MD PCP - General Internal Medicine 02/18/23 Ravinder Jose MD Specialist Cardiology 02/11/23 Fabien Burgos NP Specialist Cardiology 02/11/23 Angelica Price MD [address] [place] [address] Specialist Cardiology 03/11/23 documented as of this encounter
--- OUTSIDE RECORDS SUMMARY | 2024-07-16 12:29 | XMS_ITS | Encounter Summary ---
Author Organization [facility] Address [address] [place] [address] Care Team Providers Care Education Associate Name Role Phone Aram Modi MD Primary Care Provider Yanet Gilmroe Pcp Primary Care Provider [facility] Ravinder Salvador MD Unavailable [phone] Fabien Burgos NP Unavailable [phone] Aram Modi MD Primary Care Provider Unava Angelica Russell MD Unavailable [phone] Encounter Details Date Type Department Care Team Description 03/03/2018 Orders Only Radiology - [place] [address] [place] [id number] Jessee Shankar MD Screening for diabetes mellitus [...] CREATININE, BLOOD ASSAY (03/13/2018 9:57 AM EDT) [facility] Signature CREAT 1.2 0.7 - 1.5 mg/dL 03/13/2018 2:00 PM EDT [facility] GFR > 60 >60 03/13/2018 2:00 PM EDT [facility] Comment: If patient is -Gibraltarian, multiply result by 1.21 Chronic Kidney Disease: < 60 ml/min/1.73 square meters Kidney Failure: < 15 ml/min/1.73 square meters 03/13/2018 9:57 AM EDT 03/13/2018 9:58 AM EDT Jessee Shankar MD LAB Performing Organization Address City/State/[facility] Co de Phone Number [facility] [address] [facility] documented in this encounter Visit Diagnoses Diagnosis Screening for diabetes mellitus- Primary documented in this encounter Care Teams Education Associate Relationship Specialty Start Date End Date Aram Modi MD PCP - General Internal Medicine 04/22/17 09/10/20 [facility], Pcp PCP - General Internal Medicine 09/11/20 02/17/23 Aram Modi MD PCP - General Internal Medicine 02/18/23 Ravinder Jose MD Specialist Cardiology 02/11/23 Fabien Burgos NP Specialist Cardiology 02/11/23 Angelica Price MD [address] [place] [address] Specialist Cardiology 03/11/23 documented as of this encounter
== END 2024-07-15 10:51 | disposition home or self-care (01) ==
LOC: HO.HOSX 10:50
PROVIDERS: Visit Provider Physician Assistant
DX: M25.569 Pain in unspecified knee (principal); Z96.651 Presence of right artificial knee joint
CPT/HCPCS: 73562; 99212

== ENCOUNTER 2024-07-15 12:50 | Outpatient (AMB) | payer MEDICARE, SELFPAY ==
--- NOTE | 2024-07-15 13:10 | MHC.OFFVIS ---
Intake Visit Reasons: 2WK PO: R TKA w/ 06/28/24 Intake Note: Cy is a 84 year old male who presents today with his sister for a post op appointment s/p right TKA 06/28/24 Patient reports his pain has been off and on. He mentions that he is having swelling down his leg. Allergies lactose [LACTOSE] Allergy (Severe, Verified 07/15/24 13:13) Diarrhea morphine [MORPHINE] Allergy (Intermediate, Verified 07/15/24 13:13) INVOLUNTARY SPASMS atenolol Adverse Reaction (Intermediate, Verified 07/15/24 13:13) Nausea HPI HPI 2WK PO: R TKA w/DR 06/28/24: Details: Mr. Velez is an 84-year-old male who presents to the office today for follow-up status post right total knee arthroplasty performed by Dr. Deng on 06/28/2024. Patient has been working on physical therapy at home and is ready to transition to outpatient physical therapy. Overall he is doing very well. He is ambulating with the use of a cane. [facility] Medical History Arthritis Back pain Anemia Hiatal hernia Murmur Scarlet fever Hyperlipidemia Chronic rhinitis Elevated PSA Thyroid disease HTN (hypertension) Gout CKD (chronic kidney disease) stage 3, GFR 30-59 ml/min Sleep apnea Internal hemorrhoids Polymyalgia rheumatica Chronic pruritus Lung cancer Functional diarrhea Osteoarthritis BPH (benign prostatic hyperplasia) Serrated polyp of colon Cystic mass of pancreas IBS (irritable bowel syndrome) Venous insufficiency of both lower extremities PVC (premature ventricular contraction) Cardiomyopathy Chest pain Coronary artery disease involving mcgrath coronary artery Second degree heart block Cardiac resynchronization therapy pacemaker (COURT ADVOCATE-P) in place Surgical History H/O hemorrhoidectomy Hx of lumbosacral spine surgery Hx of bilateral cataract extraction Hx of removal of cyst Hx of inguinal hernia repair Hx of cholecystectomy H/O colonoscopy History of esophagogastroduodenoscopy (EGD) History of lobectomy of lung History of permanent cardiac pacemaker placement Hx of arthroscopy of left knee Hx of cardiac catheterization Social History Are you a primary health care consultant to a significant other at home: No Do you presently have visiting nurse or other home services: No Patient Tobacco Use Status: Former Tobacco user service: No Review of Systems Const All systems reviewed & are unremarkable except as noted in HPI and below Physical Exam Const General: cooperative, healthy appearing and no acute distress Resp Effort & Inspection: normal respiratory effort and able to speak in complete sentences Cardio Rate: regular rate Peripheral pulses: Peripheral pulses 2+ throughout Skin Lesions: no lesions Rashes: no rashes Extrem Other: Right knee incision site clean dry and intact. Newell intact. No surrounding erythema or drainage. No signs of infection. Range of motion 0-120. NPO Assessment & Plan Assessment & Plan (1) Status post total right knee replacement: Code(s): Z96.651 - Presence of right artificial knee joint Category: Surgical Plan Mr. Velez is an 84-year-old male who presents to the office today for follow-up status post right total knee arthroplasty performed by Dr. Deng on 06/28/2024. Patient has been working on physical therapy at home and is ready to transition to outpatient physical therapy. Overall he is doing very well. He is ambulating with the use of a cane. While in the office today, geni removed and Steri-Strips were applied. I did provide the patient with a prescription for amoxicillin 2000 mg to be taken 1 hour prior to dental procedure when needed in the future. Patient understands he is not have any dental work until 3 months postop. He will follow up in [address] Deng, sooner if needed. X-rays of the right knee which were obtained while in the office today and were reviewed by me, Karly Rangel PA-C, revealed intact right knee arthroplasty with satisfactory alignment. Orders: Orders XR knee LT 1V Today M25.569 - Pain in unspecified knee XR knee RT 3V Today M25.569 - Pain in unspecified knee Medications: New amoxicillin 2,000 mg (4 x 500 mg) PO ONCE 4 tabs 0RF take 4 tabs by mouth 1 hour prior to dental ppx 1 day Coding Level of Care Code Global (55382) Diagnoses Status post total right knee replacement Z96.651
--- OUTSIDE RECORDS SUMMARY | 2024-07-15 15:14 | XMS_ITS | Encounter Summary ---
Author Organization [facility] Address [address] [place] [address] Care Team Providers Care Mobile Solutions Architect Name Role Phone Gael Coffman MD Primary Care Provider Unavail able Aram Modi MD Primary Care Provider Luis E Parker Primary Care Provider UnavailRavinder Wallace MD Unavailable [phone] Fabien Burgos NP Unavailable [phone] Aram Modi MD Primary Care Provider Angelica Cardozo MD Unavailable [phone] Encounter Details Date Type Department Care Team Description 01/11/2017 Orders Only Adult Medicine B - [place] [address] [place] [address] Gael Coffman MD Social History Tobacco Use [...] on filedocumented in this encounter Care Teams Mobile Solutions Architect Relationship Specialty Start Date End Date Gael Coffman MD PCP - General 06/10/01 04/21/17 Aram Modi MD PCP - General Internal Medicine 04/22/17 09/10/20 [facility], Pcp PCP - General Internal Medicine 09/11/20 02/17/23 Aram Modi MD PCP - General Internal Medicine 02/18/23 Ravinder Jose MD Specialist Cardiology 02/11/23 Fabien Burgos NP Specialist Cardiology 02/11/23 Angelica Price MD [address] [place] [address] Specialist Cardiology 03/11/23 documented as of this encounter
--- OUTSIDE RECORDS SUMMARY | 2024-07-15 15:14 | XMS_ITS | Encounter Summary ---
Author Organization [facility] Address [address] [place] [address] Care Team Providers Care Chief Sustainability Officer Name Role Phone Gael Coffman MD Primary Care Provider Unavail able Aram oMdi MD Primary Care Provider Yanet Gilmore Pcp Primary Care Provider UnavailRavinder Wallace MD Unavailable [phone] Fabien Burgos NP Unavailable [phone] Aram Modi MD Primary Care Provider Angelica Cardozo MD Unavailable [phone] Encounter Details Date Type Department Care Team Description 02/20/2017 Production Supervisor Trainee Report Medical Records [address] [place] [address] Ronaldo Thakur, PA-C Social History Tobacco Use [...] filedocumented in this encounter Care Teams Chief Sustainability Officer Relationship Specialty Start Date End Date Gael Coffman MD PCP - General 06/10/01 04/21/17 Aram Modi MD PCP - General Internal Medicine 04/22/17 09/10/20 [facility], Pcp PCP - General Internal Medicine 09/11/20 02/17/23 Aram Modi MD PCP - General Internal Medicine 02/18/23 Ravinder Jose MD Specialist Cardiology 02/11/23 Fabien Burgos NP Specialist Cardiology 02/11/23 Angelica Price MD [address] [place] [address] Specialist Cardiology 03/11/23 documented as of this encounter
--- OUTSIDE RECORDS SUMMARY | 2024-07-15 15:14 | XMS_ITS | Encounter Summary ---
Author Organization [facility] Address [address] [place] [address] Care Team Providers Care Ticket Worker Name Role Phone Gael Coffman MD Primary Care Provider Unavail able Aram Modi MD Primary Care Provider Luis E Parker Primary Care Provider UnavailRavinder Wallace MD Unavailable [phone] Fabien Burgos NP Unavailable [phone] Aram Modi MD Primary Care Provider Angelica Cardozo MD Unavailable [phone] Encounter Details Date Type Department Care Team Description 09/16/2013 Business Doc Medical Records [address] [place] [id number] Abstract, Provider Social History Tobacco Use Types [...] on filedocumented in this encounter Care Teams Ticket Worker Relationship Specialty Start Date End Date Gael Coffman MD PCP - General 06/10/01 04/21/17 Aram Modi MD PCP - General Internal Medicine 04/22/17 09/10/20 [facility], Pcp PCP - General Internal Medicine 09/11/20 02/17/23 Aram Modi MD PCP - General Internal Medicine 02/18/23 Ravinder Jose MD Specialist Cardiology 02/11/23 Fabien Burgos NP Specialist Cardiology 02/11/23 Angelica Price MD [address] [place] [address] Specialist Cardiology 03/11/23 documented as of this encounter
--- OUTSIDE RECORDS SUMMARY | 2024-07-15 15:14 | XMS_ITS | Encounter Summary ---
Author Organization [facility] Address [address] [place] [address] Care Team Providers Care Manufacturing Quality Engineer Name Role Phone Aram Modi MD Primary Care Provider Unakuldeep Gilmore Pcp Primary Care Provider Unavailnavos health Ravinder Salvador MD Unavailable [phone] Fabien Burgos NP Unavailable [phone] Aram Modi MD Primary Care Provider Unava Angelica Russell MD Unavailable [phone] Reason for Visit * Reason Comments E-prescribe Rx Request Encounter Details Date Type Department Care Team Description 04/22/2017 Refill Adult Medicine - [address] [address] Gael Coffman MD E-prescribe Rx Request Social [...] YES Patients current insurance carrier is: Payor: MEDICARE-[place] / Plan: MEDICARE-[place] / Product Type: MEDICARE [id number] documented in this encounter Plan of Treatment Not on file documented as of this encounter Visit Diagnoses Not on filedocumented in this encounter Care Teams Manufacturing Quality Engineer Relationship Specialty Start Date End Date Aram Modi MD PCP - General Internal Medicine 04/22/17 09/10/20 [facility] PCP - General Internal Medicine 09/11/20 02/17/23 Aram Modi MD PCP - General Internal Medicine 02/18/23 Ravinder Jose MD Specialist Cardiology 02/11/23 Fabien Burgos NP Specialist Cardiology 02/11/23 Angelica Price MD [address] [facility] [address] [place] [address] Specialist Cardiology 03/11/23 documented as of this encounter
--- OUTSIDE RECORDS SUMMARY | 2024-07-15 15:14 | XMS_ITS | Encounter Summary ---
Author Organization [facility] Address [address] [place] [address] Care Team Providers Care Player Development Manager Name Role Phone Gael Coffman MD Primary Care Provider Unavail able Aram Modi MD Primary Care Provider Yanet Gilmore Pcp Primary Care Provider UnavailRavinder Wallace MD Unavailable [phone] Fabien Burgos NP Unavailable [phone] Aram Modi MD Primary Care Provider Angelica Cardozo MD Unavailable [phone] Encounter Details Date Type Department Care Team Description 06/07/2014 [facility] Medical Records [address] [place] [address] Danielle Santiago MD Social History Tobacco Use [...] on filedocumented in this encounter Care Teams Player Development Manager Relationship Specialty Start Date End Date Gael Coffman MD PCP - General 06/10/01 04/21/17 Aram Modi MD PCP - General Internal Medicine 04/22/17 09/10/20 [facility], Pcp PCP - General Internal Medicine 09/11/20 02/17/23 Aram Modi MD PCP - General Internal Medicine 02/18/23 Ravinder Jose MD Specialist Cardiology 02/11/23 Fabien Burgos NP Specialist Cardiology 02/11/23 Angelica Price MD [address] [place] [address] Specialist Cardiology 03/11/23 documented as of this encounter
--- OUTSIDE RECORDS SUMMARY | 2024-07-15 15:14 | XMS_ITS | Encounter Summary ---
Author Organization [facility] Address [address] [place] [address] Care Team Providers Care Manufacturing Quality Manager Name Role Phone Gael Coffman MD Primary Care Provider Unavail able Aram Modi MD Primary Care Provider Yanet Gilmore Pcp Primary Care Provider UnavailRavinder Wallace MD Unavailable [phone] Fabien Burgos NP Unavailable [phone] Aram Modi MD Primary Care Provider Angelica Cardozo MD Unavailable [phone] Encounter Details Date Type Department Care Team Description 05/30/2014 [facility] Medical Records [address] [place] [address] Zaid Cortes MD Social History Tobacco Use Types Packs/Day [...] in this encounter Care Teams Manufacturing Quality Manager Relationship Specialty Start Date End Date Gael Coffman MD PCP - General 06/10/01 04/21/17 Aram Modi MD PCP - General Internal Medicine 04/22/17 09/10/20 [facility], Pcp PCP - General Internal Medicine 09/11/20 02/17/23 Aram Modi MD PCP - General Internal Medicine 02/18/23 Ravinder Jose MD Specialist Cardiology 02/11/23 Fabien Burgos NP Specialist Cardiology 02/11/23 Angelica Price MD [address] [place] [address] Specialist Cardiology 03/11/23 documented as of this encounter
--- OUTSIDE RECORDS SUMMARY | 2024-07-15 15:14 | XMS_ITS | Encounter Summary ---
Author Organization [facility] Address [address] [place] [address] Care Team Providers Care Physical Meteorologist Name Role Phone Gael Coffman MD Primary Care Provider Unavail able Aram Modi MD Primary Care Provider Yanet Gilmore Pcp Primary Care Provider UnavailRavinder Wallace MD Unavailable [phone] Fabien Burgos NP Unavailable [phone] Aram Modi MD Primary Care Provider Angelica Cardozo MD Unavailable [phone] Encounter Details Date Type Department Care Team Description 01/07/2017 [facility] Medical Records [address] [place] [address] Abstract, Provider Social History Tobacco Use Types [...] on filedocumented in this encounter Care Teams Physical Meteorologist Relationship Specialty Start Date End Date Gael Coffman MD PCP - General 06/10/01 04/21/17 Aram Modi MD PCP - General Internal Medicine 04/22/17 09/10/20 [facility], Pcp PCP - General Internal Medicine 09/11/20 02/17/23 Aram Modi MD PCP - General Internal Medicine 02/18/23 Ravinder Jose MD Specialist Cardiology 02/11/23 Fabien Burgso NP Specialist Cardiology 02/11/23 Angelica Price MD [address] [place] [address] Specialist Cardiology 03/11/23 documented as of this encounter
--- OUTSIDE RECORDS SUMMARY | 2024-07-15 15:14 | XMS_ITS | Encounter Summary ---
Author Organization [facility] Address [address] [place] [address] Care Team Providers Care Fishing Vessel Mate Name Role Phone Gael Coffman MD Primary Care Provider Unavail able Aram Modi MD Primary Care Provider Luis E Parker Primary Care Provider UnavailRavinder Wallace MD Unavailable [phone] Fabien Burgos NP Unavailable [phone] Aram Modi MD Primary Care Provider Angelica Cardozo MD Unavailable [phone] Encounter Details Date Type Department Care Team Description 02/14/2014 R D Manager Report Medical Records [address] [place] [address] Arturo Patel PA-C [address] [facility] [address] [place] [address] Social History Tobacco Use Types Packs/Day Years [...] on filedocumented in this encounter Care Teams Fishing Vessel Mate Relationship Specialty Start Date End Date Gael Coffman MD PCP - General 06/10/01 04/21/17 Aram Modi MD PCP - General Internal Medicine 04/22/17 09/10/20 [facility] Pcp PCP - General Internal Medicine 09/11/20 02/17/23 Aram Modi MD PCP - General Internal Medicine 02/18/23 Ravinder Jose MD Specialist Cardiology 02/11/23 Fabien Burgos NP Specialist Cardiology 02/11/23 Angelica Price MD [address] [place] [address] Specialist Cardiology 03/11/23 documented as of this encounter
--- OUTSIDE RECORDS SUMMARY | 2024-07-15 15:14 | XMS_ITS | Encounter Summary ---
Author Organization [facility] Address [address] [place] [address] Care Team Providers Care Rides Supervisor Name Role Phone Gael Coffman MD Primary Care Provider Unavail able Aram Modi MD Primary Care Provider Yanet Gilmore Pcp Primary Care Provider UnavailRavinder Wallace MD Unavailable [phone] Fabien Burgos NP Unavailable [phone] Aram Modi MD Primary Care Provider Angelica Cardozo MD Unavailable [phone] Reason for Visit * Reason Onset Date Comments Faxed Refill 11/13/2016 Encounter Details Date Type Department Care Team Description 11/13/2016 Telephone Adult Medicine [facility] [address] [place] [address] Gael Coffman MD Faxed Refill Social History Tobacco Use Types Packs/Day Years [...] Telephone Encounter - Sadie Collins M.A. - 11/13/2016 11:39 AM EDT Date of last office visit was 11/07/16. Pended appt for 12/19/16 Lab Results Component Value Date NA 143 11/04/2016 K 3.9 11/04/2016 CO2 27.8 11/04/2016 CL 102 11/04/2016 BUN 34 11/04/2016 CREAT 1.4 11/04/2016 GLU 124 11/04/2016 CA 9.3 11/04/2016 GFR 52 11/04/2016 * Telephone Encounter - Elidia Arthur - 11/13/2016 11:37 AM EDT Patient would like script to be: E-PRESCRIBED/FAXED TO PHARMACY WHEN WAS THE PATIENT'S LAST APPOINTMENT IN ADULT MEDICINE? 11/07/2016 WHEN WAS THE LAST TIME THE PATIENT SAW THEIR PCP? 09/09/2016 Does patient have an upcoming appointment? Yes 12/19/2016 (THE MEDICATION REQUESTED IS ON THE MED LIST ABOVE) All of the medications requested were on the CURRENT MEDS list Did you check the Pharmacy information above?: YES Patient wants: 90 -day supply Is this a mail order prescription request ? YES Patients current insurance carrier is: [place] / [place] / Product Type: MEDICARE [id number] documented in this encounter Plan of Treatment Not on file documented as of this encounter Visit Diagnoses Not on filedocumented in this encounter Care Teams Rides Supervisor Relationship Specialty Start Date End Date Gael Coffman MD PCP - General 06/10/01 04/21/17 Aram Modi MD PCP - General Internal Medicine 04/22/17 09/10/20 [facility], Pcp PCP - General Internal Medicine 09/11/20 02/17/23 Aram Modi MD PCP - General Internal Medicine 02/18/23 Ravinder Jose MD Specialist Cardiology 02/11/23 Fabien Burgos NP Specialist Cardiology 02/11/23 Angelica Price MD [address] [place] [address] Specialist Cardiology 03/11/23 documented as of this encounter
--- OUTSIDE RECORDS SUMMARY | 2024-07-15 15:14 | XMS_ITS | Encounter Summary ---
Author Organization [facility] Address [address] [place] [address] Care Team Providers Care Oncologist Name Role Phone Gael Coffman MD Primary Care Provider Unavail able Aram Modi MD Primary Care Provider Yanet Gilmore Pcp Primary Care Provider UnavailRavinder Wallace MD Unavailable [phone] Fabien Burgos NP Unavailable [phone] Aram Modi MD Primary Care Provider Angelica Cardozo MD Unavailable [phone] Encounter Details Date Type Department Care Team Description 07/06/2014 Gas Treater Report Medical Records [address] [place] [address] [address] [facility] Social History Tobacco Use Types Packs/Day Years [...] on filedocumented in this encounter Care Teams Oncologist Relationship Specialty Start Date End Date Gael Coffman MD PCP - General 06/10/01 04/21/17 Aram Modi MD PCP - General Internal Medicine 04/22/17 09/10/20 [facility], Pcp PCP - General Internal Medicine 09/11/20 02/17/23 Aram Modi MD PCP - General Internal Medicine 02/18/23 Ravinder Jose MD Specialist Cardiology 02/11/23 Fabien Burgos NP Specialist Cardiology 02/11/23 Angelica Price MD [address] [place] [address] Specialist Cardiology 03/11/23 documented as of this encounter
--- OUTSIDE RECORDS SUMMARY | 2024-07-15 15:14 | XMS_ITS | Encounter Summary ---
Author Organization [facility] Address [address] [place] [address] Care Team Providers Care Pipeman Name Role Phone Gael Coffman MD Primary Care Provider Unavail able Aram Modi MD Primary Care Provider Luis E Parker Primary Care Provider UnavailRavinder Wallace MD Unavailable [phone] Fabien Burgos NP Unavailable [phone] Aram Modi MD Primary Care Provider Angelica Cardozo MD Unavailable [phone] Encounter Details Date Type Department Care Team Description 11/16/2016 [facility] Medical Records [address] [place] [address] Manolo Hurtado MD Social History Tobacco Use [...] on filedocumented in this encounter Care Teams Pipeman Relationship Specialty Start Date End Date Gael Coffman MD PCP - General 06/10/01 04/21/17 Aram Modi MD PCP - General Internal Medicine 04/22/17 09/10/20 [facility], Pcp PCP - General Internal Medicine 09/11/20 02/17/23 Aram Modi MD PCP - General Internal Medicine 02/18/23 Ravinder Jose MD Specialist Cardiology 02/11/23 Fabien Burgos NP Specialist Cardiology 02/11/23 Angelica Price MD [address] [place] [address] Specialist Cardiology 03/11/23 documented as of this encounter
--- OUTSIDE RECORDS SUMMARY | 2024-07-15 15:14 | XMS_ITS | Encounter Summary ---
Author Organization [facility] Address [address] [place] [address] Care Team Providers Care Metropolitan Editor Name Role Phone Gael Coffman MD Primary Care Provider Unavail able Aram Modi MD Primary Care Provider Luis E Parker Primary Care Provider UnavailRavinder Wallace MD Unavailable [phone] Fabien Burgos NP Unavailable [phone] Aram Modi MD Primary Care Provider Angelica Cardozo MD Unavailable [phone] Encounter Details Date Type Department Care Team Description 12/03/2012 Fur Farmer Report Medical Records [address] [place] [address] Scott Souza Social History Tobacco Use Types [...] on filedocumented in this encounter Care Teams Metropolitan Editor Relationship Specialty Start Date End Date Gael Coffman MD PCP - General 06/10/01 04/21/17 Aram Modi MD PCP - General Internal Medicine 04/22/17 09/10/20 [facility], Pcp PCP - General Internal Medicine 09/11/20 02/17/23 Aram Modi MD PCP - General Internal Medicine 02/18/23 Ravinder Jose MD Specialist Cardiology 02/11/23 Fabien Burgos NP Specialist Cardiology 02/11/23 Angelica Price MD [address] [place] [address] Specialist Cardiology 03/11/23 documented as of this encounter
--- OUTSIDE RECORDS SUMMARY | 2024-07-15 15:14 | XMS_ITS | Encounter Summary ---
Author Organization [facility] Address [address] [place] [address] Care Team Providers Care Seafood Harvester Name Role Phone Gael Coffman MD Primary Care Provider Unavail able Aram Modi MD Primary Care Provider Luis E Parker Primary Care Provider UnavailRavinder Wallace MD Unavailable [phone] Fabien Burgos NP Unavailable [phone] Aram Modi MD Primary Care Provider Angelica Cardozo MD Unavailable [phone] Encounter Details Date Type Department Care Team Description 04/26/2013 Footwear Sales Leader Report Medical Records [address] [place] [address] Ricky Douglas Social History Tobacco Use Types [...] on filedocumented in this encounter Care Teams Seafood Harvester Relationship Specialty Start Date End Date Gael Coffman MD PCP - General 06/10/01 04/21/17 Aram Modi MD PCP - General Internal Medicine 04/22/17 09/10/20 [facility], Pcp PCP - General Internal Medicine 09/11/20 02/17/23 Aram Modi MD PCP - General Internal Medicine 02/18/23 Ravinder Jose MD Specialist Cardiology 02/11/23 Fabien Burgos NP Specialist Cardiology 02/11/23 Angelica Price MD [address] [place] [address] Specialist Cardiology 03/11/23 documented as of this encounter
--- OUTSIDE RECORDS SUMMARY | 2024-07-15 15:14 | XMS_ITS | Encounter Summary ---
Author Organization [facility] Address [address] [place] [address] Care Team Providers Care Affiliate Manager Name Role Phone Gael Coffman MD Primary Care Provider Unavail able Aram Modi MD Primary Care Provider Yanet Gilmore Pcp Primary Care Provider UnavailRavinder Wallace MD Unavailable Fabien Burgos NP Unavailable [phone] Aram Modi MD Primary Care Provider Angelica Cardozo MD Unavailable [phone] Reason for Visit * Reason Onset Date Comments TEST RESULTS 06/09/2014 Encounter Details Date Type Department Care Team Description 06/09/2014 Pt. Non Urgent Medical Question Adult Medicine - [place] [address] [place] [address] Gael Coffman MD Social History Tobacco Use Types Packs/Day Years Used Date Smoking Tobacco: Former Smokeless Tobacco: Never Comments:quit 30 yrs ago- s moked only about 5 cigarettes / day Alcohol Use Standard Drinks/Week Comments Not Asked 0 (1 standard drink = 0.6 oz pur e alcohol) Sex Assigned at Date Recorded Not on file Job Start Date Occupation Industry Not on file Not on file Not on file documented as of this encounter Progress Notes * Vanessa Alanis L.P.N. - 06/09/2014 8:22 AM ESTFrom: Cy Velez To: Gael Coffman MD Sent: 06/09/2014 8:07 AM EST Subject: Test Results Dear Dr. Coffman, Received test results in [employer]. However, don't understand. Would greatly appreciate it if you cansend in laymans terms what they mean. documented in this encounter Plan of Treatment Not on file documented as of this encounter Visit Diagnoses Not on filedocumented in this encounter Care Teams Affiliate Manager Relationship Specialty Start Date End Date Gael Coffman MD PCP - General 06/10/01 04/21/17 Aram Modi MD PCP - General Internal Medicine 04/22/17 09/10/20 [facility], Pcp PCP - General Internal Medicine 09/11/20 02/17/23 Aram Modi MD PCP - General Internal Medicine 02/18/23 Ravinder Jose MD Specialist Cardiology 02/11/23 Fabien Burgos NP Specialist Cardiology 02/11/23 Angelica Price MD [address] [place] [address] Specialist Cardiology 03/11/23 documented as of this encounter
--- OUTSIDE RECORDS SUMMARY | 2024-07-15 15:14 | XMS_ITS | Encounter Summary ---
Author Organization [facility] Address [address] [place] [address] Care Team Providers Care Learning Support Resource Room Teacher Name Role Phone Gael Coffman MD Primary Care Provider Unavail able Aram Modi MD Primary Care Provider Yanet Gilmore Pcp Primary Care Provider UnavailRavinder Wallace MD Unavailable [phone] Fabien Burgos NP Unavailable [phone] Aram Modi MD Primary Care Provider Angelica Cardozo MD Unavailable Reason for Visit * Reason Onset Date Comments other 07/28/2014 Encounter Details Date Type Department Care Team Description 07/28/2014 Pt. Non Urgent Medical Question Adult Medicine - [place] [address] [place] [address] Gael Coffman MD Social History Tobacco Use [...] MD Sent: 07/28/2014 8:20 AM EDT Subject: [facility] Visit Dear Dr. Coffman, I am faxing my report from Dr. Ghazala Fisher of [facility]. Please note that the one area that [...] on filedocumented in this encounter Care Teams Learning Support Resource Room Teacher Relationship Specialty Start Date End Date Gael Coffman MD PCP - General 06/10/01 04/21/17 Aram Modi MD PCP - General Internal Medicine 04/22/17 09/10/20 [facility] PCP - General Internal Medicine 09/11/20 02/17/23 Aram Modi MD PCP - General Internal Medicine 02/18/23 Ravinder Jose MD Specialist Cardiology 02/11/23 Fabien Burgos NP Specialist Cardiology 02/11/23 Angelica Price MD [address] [address] Specialist Cardiology 03/11/23 documented as of this encounter
--- OUTSIDE RECORDS SUMMARY | 2024-07-15 15:14 | XMS_ITS | Encounter Summary ---
Author Organization [facility] Address [address] [place] [address] Care Team Providers Care Impregnating Machine Operator Name Role Phone Gael Coffman MD Primary Care Provider Unavail able Aram Modi MD Primary Care Provider Yanet Gilmore Pcp Primary Care Provider UnavailRavinder Wallace MD Unavailable [phone] Fabien Burgos NP Unavailable [phone] Aram Modi MD Primary Care Provider Angelica Cardozo MD Unavailable [phone] Encounter Details Date Type Department Care Team Description 07/07/2014 Pt. Non Urgent Medical Question Adult Medicine B - [place] [address] [place] [address] Gael Coffman MD Social History Tobacco Use [...] as of this encounter Progress Notes * Janet Rosado L.P.N. - 07/07/2014 10:09 AM ESTFrom: Cy Velez To: Gael Coffman MD Sent: 07/07/2014 9:57 AM EST Subject: [facility] Dear Dr. Coffman Because I couldn't get an earlier appointment with Dr. Solomon Shipley, I went to Dr Ghazala Fisher at [facility]. I have a follow up visit in 2 months. I have faxed to your attention a list of notes per her thoughts. Basically, she agrees with your course of treatment and added a few. The Citracel addition was actually suggested by the Pain Dr. Hamilton who I found to be an excellent caring doctor. Dr. Fisher agreed. As instructed by you, I have an appointment with you in one month. Thank you for all that you do. Shan Rosie documented in this encounter Plan of Treatment Not on file documented as of this encounter Visit Diagnoses Not on filedocumented in this encounter Care Teams Impregnating Machine Operator Relationship Specialty Start Date End Date Gael Coffman MD PCP - General 06/10/01 04/21/17 Aram Modi MD PCP - General Internal Medicine 04/22/17 09/10/20 [facility], Pcp PCP - General Internal Medicine 09/11/20 02/17/23 Aram Modi MD PCP - General Internal Medicine 02/18/23 Ravinder Jose MD Specialist Cardiology 02/11/23 Fabien Burgos NP Specialist Cardiology 02/11/23 Angelica Price MD [address] [place] [address] Specialist Cardiology 03/11/23 documented as of this encounter
--- OUTSIDE RECORDS SUMMARY | 2024-07-15 15:15 | XMS_ITS | Encounter Summary ---
Author Organization [facility] Address [address] [place] [address] Care Team Providers Care Emergency Management System Director Name Role Phone Aram Modi MD Primary Care Provider + [phone] Reason for Visit * Reason Onset Date Comments Medical Records 06/16/2024 Encounter Details Date Type Department Care Team (Late st Contact Info) Description 06/16/2024 Telephone [facility] Cardiology [facility] [address] [place] [address] Aram Modi MD [address] [address] Medical Records Social History Tobacco [...] encounter Progress Notes * Stephy Fulton - 07/01/2024 4:24 PM EST Faxed 06/30/2023 Echo report to [facility] Att: Clarisa at [phone] on 06/16/2024. documented in this encounter Plan of Treatment Upcoming Encounters Date Type Department Care Team (Late st Contact Info) Description 10/28/2024 9:10 AM EDT Office Visit [facility] Cardiology [facility] [address] [place] [address] Fabien Burgos NP [address] [place] [address] [address] [place] [address] 04/20/2025 8:00 AM EST Ancillary Procedure [facility] [address] [place] [address] documented as of this encounter Visit Diagnoses Not on filedocumented in this encounter Care Teams Emergency Management System Director Relationship Specialty Start Date End Date Aram Modi MD [address] [address] PCP - General 04/22/17 documented as of this encounter
--- OUTSIDE RECORDS SUMMARY | 2024-07-15 15:15 | XMS_ITS | Encounter Summary ---
Author Organization [facility] Address [address] [place] [address] Care Team Providers Care Media Technician Name Role Phone Aram Modi MD Primary Care Provider Yanet Gilmore Pcp Primary Care Provider [facility] Ravinder Salvador MD Unavailable [phone] Fabien Burgos NP Unavailable [phone] Aram Modi MD Primary Care Provider Unava Angelica Russell MD Unavailable [phone] Encounter Details Date Type Department Care Team Description 07/25/2020 Orders Only Medicine/Pediatrics - [address] [address] Aram Modi MD Stage 3 chronic kidney [...] Primary documented in this encounter Care Teams Media Technician Relationship Specialty Start Date End Date Aram Modi MD PCP - General Internal Medicine 04/22/17 09/10/20 [facility] PCP - General Internal Medicine 09/11/20 02/17/23 Aram Modi MD PCP - General Internal Medicine 02/18/23 Ravinder Jose MD Specialist Cardiology 02/11/23 Fabien Burgos NP Specialist Cardiology 02/11/23 Angelica Price MD [address] [place] [address] Specialist Cardiology 03/11/23 documented as of this encounter
--- OUTSIDE RECORDS SUMMARY | 2024-07-15 15:15 | XMS_ITS | Encounter Summary ---
Author Organization [facility] Address [address] [place] [address] Care Team Providers Care Investment Underwriter Name Role Phone Aram Modi MD Primary Care Provider Yanet Gilmore Pcp Primary Care Provider UnavailRavinder Wallace MD Unavailable [phone] Fabien Burgos NP Unavailable [phone] Aram Modi MD Primary Care Provider Angelica Cardozo MD Unavailable [phone] Encounter Details Date Type Department Care Team Description 12/04/2018 Performance Improvement Manager Report Medical Records [address] [place] [address] Abstract, Provider Social History Tobacco Use Types [...] on filedocumented in this encounter Care Teams Investment Underwriter Relationship Specialty Start Date End Date Aram Modi MD PCP - General Internal Medicine 04/22/17 09/10/20 [facility], Pcp PCP - General Internal Medicine 09/11/20 02/17/23 Aram Modi MD PCP - General Internal Medicine 02/18/23 Ravinder Jose MD Specialist Cardiology 02/11/23 Fabien Burgos NP Specialist Cardiology 02/11/23 Angelica Price MD [address] [address] Specialist Cardiology 03/11/23 documented as of this encounter
--- OUTSIDE RECORDS SUMMARY | 2024-07-15 15:15 | XMS_ITS | Encounter Summary ---
Author Organization [facility] Address [address] [place] [address] Care Team Providers Care Occupational Therapy Technician Name Role Phone Aram Modi MD Primary Care Provider + [phone] Reason for Visit * Reason Onset Date Comments Medical Records 04/28/2024 Encounter Details Date Type Department Care Team (Late Contact Info) Description 04/28/2024 Telephone [facility] Cardiology [facility] [address] [place] [phone] Aram Modi MD [address] [address] Medical Records Social History Tobacco [...] 5:01 PM EST Faxed Holter results to [facility] Preop Dept[facility] At [phone] on 04/28/2024 documented in this encounter Plan of Treatment Upcoming Encounters Date Type Department Care Team (Late st Contact Info) Description 10/28/2024 9:10 AM EDT Office Visit [facility] [address] [place] [address] Fabien Burgos NP [address] [place] [address] [address] [place] [address] 04/20/2025 8:00 AM EST Ancillary Procedure [facility] Cardiology [facility] [address] [place] [address] documented as of this encounter Visit Diagnoses Not on filedocumented in this encounter Care Teams Occupational Therapy Technician Relationship Specialty Start Date End Date Aram Modi MD [address] [address] PCP - General 04/22/17 documented as of this encounter
--- OUTSIDE RECORDS SUMMARY | 2024-07-15 15:15 | XMS_ITS | Encounter Summary ---
Author Organization [facility] Address [address] [place] [address] Care Team Providers Care Plumbing Engineer Name Role Phone Gael Coffman MD Primary Care Provider Unavail able Aram Modi MD Primary Care Provider Yanet lopez [facility] Pcp Primary Care Provider UnavailRavinder Wallace MD Unavailable [phone] Fabien Burgos NP Unavailable [phone] Aram Modi MD Primary Care Provider Angelica Cardozo MD Unavailable [phone] Encounter Details Date Type Department Care Team Description 08/20/2016 [facility]AN Medical Records [address] [place] [address] Abstract, Provider Social History Tobacco Use Types [...] on filedocumented in this encounter Care Teams Plumbing Engineer Relationship Specialty Start Date End Date Gael Coffman MD PCP - General 06/10/01 04/21/17 Aram Modi MD PCP - General Internal Medicine 04/22/17 09/10/20 [facility], Pcp PCP - General Internal Medicine 09/11/20 02/17/23 Aram Modi MD PCP - General Internal Medicine 02/18/23 Ravinder Jose MD Specialist Cardiology 02/11/23 Fabien Burgos NP Specialist Cardiology 02/11/23 Angelica Price MD [address] [place] [address] Specialist Cardiology 03/11/23 documented as of this encounter
--- OUTSIDE RECORDS SUMMARY | 2024-07-15 15:15 | XMS_ITS | Encounter Summary ---
Author Organization [facility] Address [address] [place] [address] Care Team Providers Care Lard Mixer Name Role Phone Aram Modi MD Primary Care Provider Yanet Gilmore, Pcp Primary Care Provider [facility] Ravinder Salvador MD Unavailable [phone] Fabien Burgos NP Unavailable Aram Modi MD Primary Care Provider Unaacadia healthcareAngelica Hahn MD Unavailable [phone] Encounter Details Date Type Department Care Team Description 04/06/2019 Pt. Non Urgent Medical Question Rheumatology - [place] [address] [place] [address] Simon Garcia MD Social History Tobacco Use [...] on filedocumented in this encounter Care Teams Lard Mixer Relationship Specialty Start Date End Date Aram Modi MD PCP - General Internal Medicine 04/22/17 09/10/20 [facility], Pcp PCP - General Internal Medicine 09/11/20 02/17/23 Aram Modi MD PCP - General Internal Medicine 02/18/23 Ravinder Jose MD Specialist Cardiology 02/11/23 Fabien Burgos NP Specialist Cardiology 02/11/23 Angelica Price MD [address] [place] [address] Specialist Cardiology 03/11/23 documented as of this encounter
--- OUTSIDE RECORDS SUMMARY | 2024-07-15 15:15 | XMS_ITS | Clinical Summary ---
Author Organization [facility] Address [address] [address] Phone Care Team Providers Care City Letter Carrier Name Role Phone Aram Modi MD Primary Care Provider [phone] Allergies Active Allergy Reactions Criticality Noted Date [...] 04/09/2023 Overview (04/09/2023): Done on 02/03/2023 at [facility] indications:CHF Multiple premature ventricular complexes 021 [...] sleep apnea 03/29/2014 04/09/20 23 Overview (04/09/2023): [facility] Home Polysomnogram: Date 02/13/2017; AHI 12, [...] Office Visit [facility] [address] [facility] [address] [place] [address] Abhishek Haynes MD Stage 3a chronic kidney disease (HCC) (Primary Dx); Hypertension; Heart failure with reduced ejection fraction (HCC) 04/27/2024 Orders Only [facility] [address] [facility] [address] [place] [phone] Abhishek Haynes MD from Last 3 Months [...] Visit [facility] [address] [address] Abhishek Haynes MD [address] [address] Health Maintenance Due Date Last [...] Creatinine, Ur 44.9 Not Estab. mg/dL [facility] Urine Microalbumin <3.0 Not Estab. ug/mL [facility] Microalbumin/Crea tinine Ratio <7 0 - 29 mg/g creat [facility] Comment: ? Normal: ?0 - ??29 ? Moderately increased: 30 - 300 ? Severely increased: ? >300 04/27/2024 12:5 1 PM EST 04/27/2024 us Abhishek Haynes MD LAB URINE ORDERABLES Final Resul t Performing Organization Address [facility] Co de Phone Number [employer] [place] [address] [place] [address] * (ABNORMAL) Vitamin D 25 Hydroxy (04/27/2024 12:51 PM EST) Vitamin D, 25-OH, Total 27.0(L) 30.0 - 100.0 ng/mL [facility] Comment: Vitamin D deficiency has been defined by the [place] of [employer] and an Endocrine Society practice guideline as a level of serum 25-OH vitamin D less than 20 ng/mL (1,2). The Endocrine Society went on to further define vitamin D insufficiency as a level between 21 and 29 ng/mL (2). 1. IOM ([place] of [employer]). 2010. Dietary reference ?? intakes for calcium and D. [place]: The ?? Proficient Press. 2. Soheila MF, Samantha LAWSON, Vanda BURGESS, et al. ?? Evaluation, treatment, and prevention of vitamin D ?? deficiency: an Endocrine Society clinical practice ?? guideline. JCEM. 2010; 96(7):1911-30. 04/27/2024 12:5 1 PM EST 04/27/2024 us Abhishek Haynes MD LAB BLOOD ORDERABLES Final Resul t Performing Organization Address [facility] Co de Phone Number [employer] [place] [address] [place] [address] * (ABNORMAL) PTH, Intact (04/27/2024 12:51 PM EST) PTH 80(H) 15 - 65 pg/mL [facility] 04/27/2024 12:5 1 PM EST 04/27/2024 us Abhishek Haynes MD LAB BLOOD ORDERABLES Final Resul t Performing Organization Address [facility] Co de Phone Number [employer] [place] [address] [place] [address] * (ABNORMAL) Renal Function Panel (04/27/2024 12:51 PM EST) Glucose 102(H) 70 - 99 mg/dL [facility] BUN 36(H) 8 - 27 mg/dL [facility] Creatinine 1.41(H) 0.76 - 1.27 mg/dL [facility] eGFR CKD-EPI CR 2020 49(L) >59 mL/min/1.7 3 [facility] BUN/Creatinine Ratio 26(H) 10 - 24 [facility] Sodium 140 134 - 144 mmol/L [facility] Potassium 4.5 3.5 - 5.2 mmol/L [facility] Chloride 103 96 - 106 mmol/L [facility] Bicarbonate (CO2) 21 20 - 29 mmol/L [facility] Calcium 9.1 8.6 - 10.2 mg/dL [facility] Phosphorus 3.2 2.8 - 4.1 mg/dL [facility] Albumin 4.3 3.7 - 4.7 g/dL [facility] 04/27/2024 12:5 1 PM EST 04/27/2024 us Abhishek Haynes MD LAB BLOOD ORDERABLES Final Resul t [facility] [address] [place] [address] from Last 3 Months Insurance [facility]ICARE [facility] Care Teams City Letter Carrier Relationship Specialty Start Date End Date Aram Modi MD [address] [place] [address] PCP - General Internal Medicine 04/09/23
--- OUTSIDE RECORDS SUMMARY | 2024-07-15 15:15 | XMS_ITS | Encounter Summary ---
Author Organization [facility] Address [address] [place] [address] Care Team Providers Care Ager Operator Name Role Phone Aram Modi MD Primary Care Provider + [phone] Reason for Visit * Reason Onset Date Comments Medical Records 05/20/2024 Encounter Details Date Type Department Care Team (Late st Contact Info) Description 05/20/2024 Telephone [facility] Cardiology [facility] [address] [place] [phone] Aram Modi MD [address] [address] Medical Records Social History Tobacco [...] EKG, device check and holter report to [facility] Att: Clarisa at [phone] on 05/20/2024 documented in this encounter Plan of Treatment Upcoming Encounters Date Type Department Care Team (Late st Contact Info) Description 10/28/2024 9:10 AM EDT Office Visit [facility]iology [facility] [address] [place] [address] Fabien Burgos NP [address] [place] [address] [address] [place] [address] 04/20/2025 8:00 AM EST Ancillary Procedure [facility] Cardiology [facility] [address] [place] [address] documented as of this encounter Visit Diagnoses Not on filedocumented in this encounter Care Teams Ager Operator Relationship Specialty Start Date End Date Aram Modi MD [address] [address] PCP - General 04/22/17 documented as of this encounter
--- OUTSIDE RECORDS SUMMARY | 2024-07-15 15:15 | XMS_ITS | Encounter Summary ---
Author Organization [facility] Address [address] [place] [address] Care Team Providers Care Can Pusher Name Role Phone Aram Modi MD Primary Care Provider Yanet Gilmore Pcp Primary Care Provider [facility] Ravinder Salvador MD Unavailable [phone] Fabien Burgos NP Unavailable [phone] Aram Modi MD Primary Care Provider Angelica Cardozo MD Unavailable [phone] Reason for Visit * Reason Onset Date Comments Faxed Refill 08/09/2020 Encounter Details Date Type Department Care Team Description 08/09/2020 Refill Medicine/Pediatrics - [address] [address] Aram Modi MD Faxed Refill Social History Tobacco Use [...] have Coronavirus / COVID-19? No / Unsure 08/07/2020 2:52 PM EDT documented as of this encounter Miscellaneous Notes * Telephone Encounter - Aram Modi MD - 08/09/2020 1:20 PM EDT Scripts sent * Telephone Encounter - Erin Somers M.A. - 08/09/2020 11:29 AM EDT Lab Results Component Value Date NA 139 07/25/2020 K 4.4 07/25/2020 CO2 25 07/25/2020 CL 107 07/25/2020 BUN 32 07/25/2020 CREAT 1.39 07/25/2020 GLU 109 07/25/2020 CA 9.0 07/25/2020 GFR 49 07/25/2020 Lab Results Component Value Date CHOL 192 09/28/2019 LDL 83 09/28/2019 HDL 51 09/28/2019 TRIG 290 09/28/2019 SGOT 12 04/07/2019 SGPT 23 04/07/2019 Last appt with pcp 03/22/20 * Telephone Encounter - Delilah Dagoberto - 08/09/2020 10:03 AM EDT Patient would like script to be: E-PRESCRIBED/FAXED TO PHARMACY WHEN WAS THE PATIENT'S LAST APPOINTMENT IN ADULT MEDICINE? 03/22/20 WHEN WAS THE LAST TIME THE PATIENT SAW THEIR PCP? Same as above Does patient have an upcoming appointment? No tried to call patient-just rang and rang, no answer and no voicemail set up (THE MEDICATION REQUESTED IS ON THE MED LIST ABOVE) All of the medications requested were on the CURRENT MEDS list Did you check the Pharmacy information above?: YES Patient wants: 90 -day supply Is this a mail order prescription request ? NO If the refill is from a FAXED refill request what is the RX # listed on the fax? N/A Patients current insurance carrier is: [place] / [place] / Product Type: MEDICARE [id number] documented in this encounter Plan of Treatment Not on file documented as of this encounter Visit Diagnoses Not on filedocumented in this encounter Care Teams Can Pusher Relationship Specialty Start Date End Date Aram Modi MD PCP - General Internal Medicine 04/22/17 09/10/20 [facility] PCP - General Internal Medicine 09/11/20 02/17/23 Aram Modi MD PCP - General Internal Medicine 02/18/23 Ravinder Jose MD Specialist Cardiology 02/11/23 Fabien Burgos NP Specialist Cardiology 02/11/23 Angelica Price MD [address] [place] [address] Specialist Cardiology 03/11/23 documented as of this encounter
--- OUTSIDE RECORDS SUMMARY | 2024-07-15 15:15 | XMS_ITS | Encounter Summary ---
Author Organization [facility] Address [address] [place] [address] Care Team Providers Care Grinder Set Up Operator Surface Name Role Phone Community, Pcp Primary Care Provider Unavailcynthia e Ravinder Jose MD Unavailable [phone] Fabien Burgos NP Unavailable [phone] Aram Modi MD Primary Care Provider Angelica Cardozo MD Unavailable [phone] Encounter Details Date Type Department Care Team Description 01/30/2023 [facility] Medical Records [address] [place] [address] Social History Tobacco Use Types Packs/Day Years [...] on filedocumented in this encounter Care Teams Grinder Set Up Operator Surface Relationship Specialty Start Date End Date Community, Pcp PCP - General Internal Medicine 09/11/20 02/17/23 Aram Modi MD PCP - General Internal Medicine 02/18/23 Ravinder Jose MD Specialist Cardiology 02/11/23 Fabien Burgos NP Specialist Cardiology 02/11/23 Angelica Price MD [address] [facility] [address] [place] [address] Specialist Cardiology 03/11/23 documented as of this encounter
--- OUTSIDE RECORDS SUMMARY | 2024-07-15 15:15 | XMS_ITS | Encounter Summary ---
Author Organization [facility] Address [address] [place] [address] Care Team Providers Care Hand Router Operator Name Role Phone Aram Modi MD Primary Care Provider Unakuldeep Gilmore, Pcp Primary Care Provider [facility] Ravinder Salvador MD Unavailable Fabien Burgos NP Unavailable [phone] Aram Modi MD Primary Care Provider Unava Angelica Russell MD Unavailable [phone] Encounter Details Date Type Department Care Team Description 06/01/2019 Pt. Non Urgent Medic al Question Physiatry - [place] [address] [place] [address] Dallas Hamilton DO Social History Tobacco Use Types Packs/Day Years [...] as of this encounter Progress Notes * Livier Dong M.A. - 06/01/2019 12:30 PM ESTFrom: Cy Holly Rosie To: Dallas Hamilton DO Sent: 06/01/2019 11:59 AM EST Subject: MRI Hi Dr Lynne I was wondering if it would be possible within the guidelines of your office to send a copy of my MRI to [facility]. This would be in regard to an referral Thank you, Shan Velez documented in this encounter Plan of Treatment Not on file documented as of this encounter Visit Diagnoses Not on filedocumented in this encounter Care Teams Hand Router Operator Relationship Specialty Start Date End Date Aram Modi MD PCP - General Internal Medicine 04/22/17 09/10/20 [facility] PCP - General Internal Medicine 09/11/20 02/17/23 Aram Modi MD PCP - General Internal Medicine 02/18/23 Ravinder Jose MD Specialist Cardiology 02/11/23 Fabien Burgos NP Specialist Cardiology 02/11/23 Angelica Price MD [address] [place] [address] Specialist Cardiology 03/11/23 documented as of this encounter
--- OUTSIDE RECORDS SUMMARY | 2024-07-15 15:15 | XMS_ITS | Encounter Summary ---
Author Organization [facility] Address [address] [place] [address] Care Team Providers Care Rehab Consultant Name Role Phone Gael Coffman MD Primary Care Provider Unavail able Aram Modi MD Primary Care Provider Yanet Gilmore Pcp Primary Care Provider UnavailRavinder Wallace MD Unavailable [phone] Fabien Burgos NP Unavailable [phone] Aram Modi MD Primary Care Provider Angelica Cardozo MD Unavailable [phone] Reason for Visit * Reason Onset Date Comments Medication 07/16/2016 Encounter Details Date Type Department Care Team Description 07/16/2016 Telephone Adult Medicine [facility] [address] [place] [address] Gael Coffman MD Medication Social History Tobacco [...] Miscellaneous Notes * Telephone Encounter - Sadie Collisn M.A. - 07/16/2016 3:34 PM EST Date [...] / Plan: [place] / Product Type: MEDICARE [id number] documented in this encounter Plan of Treatment Not on file documented as of this encounter Visit Diagnoses Not on filedocumented in this encounter Care Teams Rehab Consultant Relationship Specialty Start Date End Date Gael Coffman MD PCP - General 06/10/01 04/21/17 Aram Modi MD PCP - General Internal Medicine 04/22/17 09/10/20 [facility] PCP - General Internal Medicine 09/11/20 02/17/23 Aram Modi MD PCP - General Internal Medicine 02/18/23 Ravinder Jose MD Specialist Cardiology 02/11/23 Fabien Burgos NP Specialist Cardiology 02/11/23 Angelica Price MD [address] [address] Specialist Cardiology 03/11/23 documented as of this encounter
--- OUTSIDE RECORDS SUMMARY | 2024-07-15 15:15 | XMS_ITS | Encounter Summary ---
Author Organization [facility] Address [address] [place] [address] Care Team Providers Care Bank And Savings Securities Trader Name Role Phone Gael Coffman MD Primary Care Provider Unavail able Aram Modi MD Primary Care Provider Yanet lopez [facility] Pcp Primary Care Provider UnavailRavinder Wallace MD Unavailable [phone] Fabien Burgos NP Unavailable [phone] Aram Modi MD Primary Care Provider Angelica Cardozo MD Unavailable [phone] Encounter Details Date Type Department Care Team Description 08/16/2016 [facility] Medical Records [address] [place] [address] Abstract, Provider Social History Tobacco Use Types [...] on filedocumented in this encounter Care Teams Bank And Savings Securities Trader Relationship Specialty Start Date End Date Gael Coffman MD PCP - General 06/10/01 04/21/17 Aram Modi MD PCP - General Internal Medicine 04/22/17 09/10/20 [facility] PCP - General Internal Medicine 09/11/20 02/17/23 Aram Modi MD PCP - General Internal Medicine 02/18/23 Ravinder Jose MD Specialist Cardiology 02/11/23 Fabien Burgos NP Specialist Cardiology 02/11/23 Angelica Price MD [address] [place] [address] Specialist Cardiology 03/11/23 documented as of this encounter
--- OUTSIDE RECORDS SUMMARY | 2024-07-15 15:15 | XMS_ITS | Encounter Summary ---
Author Organization [facility] Address [address] [place] [address] Care Team Providers Care Medical Lab Technologist Name Role Phone Aram Modi MD Primary Care Provider Yanet Gilmore, Pcp Primary Care Provider [facility] Ravinder Salvador MD Unavailable [phone] Fabien Burgos NP Unavailable [phone] Aram Modi MD Primary Care Provider [facility] hospitalAngelica Hahn MD Unavailable [phone] Encounter Details Date Type Department Care Team Description 10/30/2018 Pt. Non Urgent Medical Question Rheumatology - [place] [address] [place] [address] Simon Garcia MD Social History Tobacco Use [...] on filedocumented in this encounter Care Teams Medical Lab Technologist Relationship Specialty Start Date End Date Aram Modi MD PCP - General Internal Medicine 04/22/17 09/10/20 [facility], Pcp PCP - General Internal Medicine 09/11/20 02/17/23 Aram Modi MD PCP - General Internal Medicine 02/18/23 Ravinder Jose MD Specialist Cardiology 02/11/23 Fabien Burgos NP Specialist Cardiology 02/11/23 Angelica Price MD [address] [place] [address] Specialist Cardiology 03/11/23 documented as of this encounter
--- OUTSIDE RECORDS SUMMARY | 2024-07-15 15:16 | XMS_ITS | Encounter Summary ---
Author Organization [facility] Address [address] [place] [address] Care Team Providers Care Visual Merchandise Manager Name Role Phone Aram Modi MD Primary Care Provider Yanet Gilmore Pcp Primary Care Provider [facility] Ravinder Salvador MD Unavailable Fabien Burgos NP Unavailable [phone] Aram Modi MD Primary Care Provider Unava Angelica Russell MD Unavailable [phone] Encounter Details Date Type Department Care Team Description 08/04/2018 Pt. Non Urgent Medical Question Medicine/Pediatrics - [address] [address] Aram Modi MD Chest pain, unspecified type [...] Primary documented in this encounter Care Teams Visual Merchandise Manager Relationship Specialty Start Date End Date Aram Modi MD PCP - General Internal Medicine 04/22/17 09/10/20 [facility] PCP - General Internal Medicine 09/11/20 02/17/23 Aram Modi MD PCP - General Internal Medicine 02/18/23 Ravinder Jose MD Specialist Cardiology 02/11/23 Fabien Burgos NP Specialist Cardiology 02/11/23 Angelica Price MD [address] [address] Specialist Cardiology 03/11/23 documented as of this encounter
--- OUTSIDE RECORDS SUMMARY | 2024-07-15 15:16 | XMS_ITS | Encounter Summary ---
Author Organization [facility] Address [address] [place] [address] Care Team Providers Care Psychology Associate Name Role Phone Gael Coffman MD Primary Care Provider Unavail able Aram Modi MD Primary Care Provider Yanet Gilmore Pcp Primary Care Provider UnavailRavinder Wallace MD Unavailable [phone] Fabien Burgos NP Unavailable [phone] Aram Modi MD Primary Care Provider Angelica Cardozo MD Unavailable [phone] Encounter Details Date Type Department Care Team Description 06/23/2015 [facility] Medical Records [address] [place] [address] Reilly Gaffney MD Social History Tobacco Use [...] on filedocumented in this encounter Care Teams Psychology Associate Relationship Specialty Start Date End Date Gael Coffman MD PCP - General 06/10/01 04/21/17 Aram Modi MD PCP - General Internal Medicine 04/22/17 09/10/20 Replaced By [facility], Pcp PCP - General Internal Medicine 09/11/20 02/17/23 Aram Modi MD PCP - General Internal Medicine 02/18/23 Ravinder Jose MD Specialist Cardiology 02/11/23 Fabien Burgos NP Specialist Cardiology 02/11/23 Angelica Price MD [address] [place] [address] Specialist Cardiology 03/11/23 documented as of this encounter
--- OUTSIDE RECORDS SUMMARY | 2024-07-15 15:16 | XMS_ITS | Encounter Summary ---
Author Organization [facility] Address [address] [place] [address] Care Team Providers Care Food Beverage Manager Name Role Phone Gael Coffman MD Primary Care Provider Unavail able Aram Modi MD Primary Care Provider Yanet Gilmore Pcp Primary Care Provider UnavailRavinder Wallace MD Unavailable [phone] Fabien Burgos NP Unavailable [phone] Aram Modi MD Primary Care Provider Angelica Cardozo MD Unavailable [phone] Encounter Details Date Type Department Care Team Description 06/24/2012 Pt. Non Urgent Medical Question Adult Medicine B - [place] [address] [place] [address] Gael Coffman MD Social History Tobacco Use [...] on filedocumented in this encounter Care Teams Food Beverage Manager Relationship Specialty Start Date End Date [...] Cardiology 02/11/23 Angelica Price MD [address] [address] Specialist Cardiology 03/11/23 documented as of this encounter
--- OUTSIDE RECORDS SUMMARY | 2024-07-15 15:16 | XMS_ITS | Encounter Summary ---
Author Organization [facility] Address [address] [place] [address] Care Team Providers Care Lens Blocker Name Role Phone Gael Coffman MD Primary Care Provider Unavail able Aram Modi MD Primary Care Provider Yanet Gilmore Pcp Primary Care Provider UnavailRavinder Wallace MD Unavailable [phone] Fabien Burgos NP Unavailable Aram Modi MD Primary Care Provider Angelica Cardozo MD Unavailable [phone] Encounter Details Date Type Department Care Team Description 05/18/2015 Wellness Visit Medical Records [address] [place] [address] Gael Coffman MD Social History Tobacco Use [...] on filedocumented in this encounter Care Teams Lens Blocker Relationship Specialty Start Date End Date Gael Coffman MD PCP - General 06/10/01 04/21/17 Aram Modi MD PCP - General Internal Medicine 04/22/17 09/10/20 Community, Pcp PCP - General Internal Medicine 09/11/20 02/17/23 Aram Modi MD PCP - General Internal Medicine 02/18/23 Ravinder Jose MD Specialist Cardiology 02/11/23 Fabien Burgos NP Specialist Cardiology 02/11/23 Angelica Price MD [address] [place] [address] Specialist Cardiology 03/11/23 documented as of this encounter
--- OUTSIDE RECORDS SUMMARY | 2024-07-15 15:16 | XMS_ITS | Encounter Summary ---
Author Organization [facility] Address [address] [place] [address] Care Team Providers Care University Intern Name Role Phone Aram Modi MD Primary Care Provider Unakuldeep Gilmore Pcp Primary Care Provider [facility] Ravinder Salvador MD Unavailable [phone] Fabien Burgos NP Unavailable [phone] Aram Modi MD Primary Care Provider Unava Angelica Russell MD Unavailable [phone] Encounter Details Date Type Department Care Team Description 08/03/2018 Telephone Cardiology - [place] [address] [place] [id number] Darleen Hernadez PA-C [address] [place], [place] [id number] Social History Tobacco Use Types Packs/Day Years [...] encounter Miscellaneous Notes * Telephone Encounter - Erin Gonzales R.N. - 08/27/2018 9:14 AM EDT FYI:Spoke with AMADO Ly states patient there this morning for stresst test and noted his legsto have biolateral edema left worse then right. Patient states started when he started taking fibersupplement. Doesn't know if to much sodium in them. States happens like that when he eats czech too. PA states no redness or hot to touch no breathing isssues non emergent just thinks needs to be ev aluated with pcp. Booked appt. With DR. Vazquez no appts. With PCP. * Telephone Encounter - Darleen Hernadez PA-C - 08/03/2018 8:56 AM EDT CONCLUSION: Exercise stress test with dyspnea and increase in chest pain from baseline . The stressEKG does not exhibit ST changes suggestive of ischemia, with a hypertensive response to exercise. Patient exercised to a 7 MET workload and 89% of the maximal age-predicted heart rate. Results have been discussed with patient, and questions have been answered. Report reviewed with Dr. Candido Garcia. Suggest exercise nuclear stress for further evaluation. Scheduling and informational handouts given. All questions answered. Darleen Hernadez PA-C 08/03/2018 documented in this encounter Plan of Treatment Not on file documented as of this encounter Visit Diagnoses Not on filedocumented in this encounter Care Teams University Intern Relationship Specialty Start Date End Date Aram Modi MD PCP - General Internal Medicine 04/22/17 09/10/20 [facility] PCP - General Internal Medicine 09/11/20 02/17/23 Aram Modi MD PCP - General Internal Medicine 02/18/23 Ravinder Jose MD Specialist Cardiology 02/11/23 Fabien Burgos NP Specialist Cardiology 02/11/23 Angelica Price MD [address] [place] [address] Specialist Cardiology 03/11/23 documented as of this encounter
--- OUTSIDE RECORDS SUMMARY | 2024-07-15 15:16 | XMS_ITS | Encounter Summary ---
Author Organization [facility] Address [address] [place] [address] Care Team Providers Care Law Librarian Name Role Phone Gael Coffman MD Primary Care Provider Unavail able Aram Modi MD Primary Care Provider Yanet Gilmore Pcp Primary Care Provider UnavailRavinder Wallace MD Unavailable [phone] Fabien Burgos NP Unavailable [phone] Aram Modi MD Primary Care Provider Angelica Cardozo MD Unavailable [phone] Encounter Details Date Type Department Care Team Description 07/06/2015 Tomographic Tech Report Medical Records [address] [place] [address] Reilly Gaffney MD Social History Tobacco Use [...] on filedocumented in this encounter Care Teams Law Librarian Relationship Specialty Start Date End Date Gael Coffman MD PCP - General 06/10/01 04/21/17 Aram Modi MD PCP - General Internal Medicine 04/22/17 09/10/20 Community, Pcp PCP - General Internal Medicine 09/11/20 02/17/23 Aram Modi MD PCP - General Internal Medicine 02/18/23 Ravinder Jose MD Specialist Cardiology 02/11/23 Fabien Burgos NP Specialist Cardiology 02/11/23 Angelica Price MD [address] [place] [address] Specialist Cardiology 03/11/23 documented as of this encounter
--- OUTSIDE RECORDS SUMMARY | 2024-07-15 15:16 | XMS_ITS | Encounter Summary ---
Author Organization [facility] Address [address] [place] [address] Care Team Providers Care Track Greaser Name Role Phone Aram Modi MD Primary Care Provider Yanet Gilmore Pcp Primary Care Provider UnavailRavinder Wallace MD Unavailable [phone] Fabien Burgos NP Unavailable [phone] Aram Modi MD Primary Care Provider Angelica Cardozo MD Unavailable [phone] Encounter Details Date Type Department Care Team Description 12/24/2019 Hadoop Consultant Report Medical Records [address] [place] [address] Ricky Douglas Social History Tobacco Use Types [...] on filedocumented in this encounter Care Teams Track Greaser Relationship Specialty Start Date End Date Aram Modi MD PCP - General Internal Medicine 04/22/17 09/10/20 [facility], Pcp PCP - General Internal Medicine 09/11/20 02/17/23 Aram Modi MD PCP - General Internal Medicine 02/18/23 Ravinder Jose MD Specialist Cardiology 02/11/23 Fabien Burgos NP Specialist Cardiology 02/11/23 Angelica Price MD [address] [address] Specialist Cardiology 03/11/23 documented as of this encounter
--- OUTSIDE RECORDS SUMMARY | 2024-07-15 15:16 | XMS_ITS | Encounter Summary ---
Author Organization [facility] Address [address] [place] [address] Care Team Providers Care Cover Machine Operator Name Role Phone Gael Coffman MD Primary Care Provider Unavail able Aram Modi MD Primary Care Provider Yanet Gilmore Pcp Primary Care Provider UnavailRavinder Wallace MD Unavailable [phone] Fabien Burgos NP Unavailable [phone] Aram Modi MD Primary Care Provider Angelica Cardozo MD Unavailable [phone] Encounter Details Date Type Department Care Team Description 09/27/2016 Director Targeted Marketing Report Medical Records [address] [place] [id number] Thony Powers, PA-C Social History Tobacco Use [...] on filedocumented in this encounter Care Teams Cover Machine Operator Relationship Specialty Start Date End Date Gael Coffman MD PCP - General 06/10/01 04/21/17 Aram Modi MD PCP - General Internal Medicine 04/22/17 09/10/20 Community, Pcp PCP - General Internal Medicine 09/11/20 02/17/23 Aram Modi MD PCP - General Internal Medicine 02/18/23 Ravinder Jose MD Specialist Cardiology 02/11/23 Fabien Burgos NP Specialist Cardiology 02/11/23 Angelica Price MD [address] [place] [address] Specialist Cardiology 03/11/23 documented as of this encounter
--- OUTSIDE RECORDS SUMMARY | 2024-07-15 15:16 | XMS_ITS | Encounter Summary ---
Author Organization [facility] Address [address] [place] [address] Care Team Providers Care Hall Supervisor Name Role Phone Gael Coffman MD Primary Care Provider Unavail able Aram Modi MD Primary Care Provider Yanet Gilmore Pcp Primary Care Provider UnavailRavinder Wallace MD Unavailable [phone] Fabien Burgos NP Unavailable [phone] Aram Modi MD Primary Care Provider Angelica Cardozo MD Unavailable [phone] Encounter Details Date Type Department Care Team Description 11/08/2015 Pt. Non Urgent Medical Question Rheumatology - [place] [address] [place] [address] Simon Garcia MD Social History Tobacco Use [...] on filedocumented in this encounter Care Teams Hall Supervisor Relationship Specialty Start Date End Date Gael Coffman MD PCP - General 06/10/01 04/21/17 Aram Modi MD PCP - General Internal Medicine 04/22/17 09/10/20 [facility], Pcp PCP - General Internal Medicine 09/11/20 02/17/23 Aram Modi MD PCP - General Internal Medicine 02/18/23 Ravinder Jose MD Specialist Cardiology 02/11/23 Fabien Burgos NP Specialist Cardiology 02/11/23 Angelica Price MD [address] [place] [address] Specialist Cardiology 03/11/23 documented as of this encounter
--- OUTSIDE RECORDS SUMMARY | 2024-07-15 15:16 | XMS_ITS | Encounter Summary ---
Author Organization [facility] Address [address] [place] [address] Care Team Providers Care Claims Director Name Role Phone Gael Coffman MD Primary Care Provider Unavail able Aram Modi MD Primary Care Provider Yanet Gilmore Pcp Primary Care Provider UnavailRavinder Wallace MD Unavailable [phone] Fabien Burgos NP Unavailable [phone] Aram Modi MD Primary Care Provider Angelica Cardozo MD Unavailable [phone] Encounter Details Date Type Department Care Team Description 12/18/2011 Transfer Records Medical Records [address] [place] [address] Abstract, Provider Social History Tobacco Use Types [...] on filedocumented in this encounter Care Teams Claims Director Relationship Specialty Start Date End Date Gael Coffman MD PCP - General 06/10/01 04/21/17 Aram Modi MD PCP - General Internal Medicine 04/22/17 09/10/20 [facility], Pcp PCP - General Internal Medicine 09/11/20 02/17/23 Aram Modi MD PCP - General Internal Medicine 02/18/23 Ravinder Jose MD Specialist Cardiology 02/11/23 Fabien Burgos NP Specialist Cardiology 02/11/23 Angelica Price MD [address] [place] [address] Specialist Cardiology 03/11/23 documented as of this encounter
--- OUTSIDE RECORDS SUMMARY | 2024-07-15 15:16 | XMS_ITS | Encounter Summary ---
Author Organization [facility] Address [address] [place] [address] Care Team Providers Care Slitter Operator Name Role Phone Gael Coffman MD Primary Care Provider Unavail able Aram Modi MD Primary Care Provider Yanet Gilmore Pcp Primary Care Provider UnavailRavinder Wallace MD Unavailable [phone] Fabien Burgos NP Unavailable [phone] Aram Modi MD Primary Care Provider Angelica Cardozo MD Unavailable [phone] Encounter Details Date Type Department Care Team Description 09/07/2010 Deputy General Counsel Report Medical Records [address] [place] [address] Ricky Douglas Social History Tobacco Use Types [...] on filedocumented in this encounter Care Teams Slitter Operator Relationship Specialty Start Date End Date Gael Coffman MD PCP - General 06/10/01 04/21/17 Aram Modi MD PCP - General Internal Medicine 04/22/17 09/10/20 Community, Pcp PCP - General Internal Medicine 09/11/20 02/17/23 Aram Modi MD PCP - General Internal Medicine 02/18/23 Ravinder Jose MD Specialist Cardiology 02/11/23 Fabien Burgos NP Specialist Cardiology 02/11/23 Angelica Price MD [address] [place] [address] Specialist Cardiology 03/11/23 documented as of this encounter
--- OUTSIDE RECORDS SUMMARY | 2024-07-15 15:16 | XMS_ITS | Encounter Summary ---
Author Organization [facility] Address [address] [place] [address] Care Team Providers Care Electronic Gaming Device Supervisor Name Role Phone Gael Coffman MD Primary Care Provider Unavail able Aram Modi MD Primary Care Provider Yanet Gilmore Pcp Primary Care Provider UnavailRavinder Wallace MD Unavailable [phone] Fabien Burgos NP Unavailable [phone] Aram Modi MD Primary Care Provider Angelica Cardozo MD Unavailable [phone] Encounter Details Date Type Department Care Team Description 12/25/2010 [facility] Medical Records [address] [place] [address] Sascha Keller MD Social History Tobacco Use [...] filedocumented in this encounter Care Teams Electronic Gaming Device Supervisor Relationship Specialty Start Date End Date Gael Coffman MD PCP - General 06/10/01 04/21/17 Aram Modi MD PCP - General Internal Medicine 04/22/17 09/10/20 [facility], Pcp PCP - General Internal Medicine 09/11/20 02/17/23 Aram Modi MD PCP - General Internal Medicine 02/18/23 Ravinder Jose MD Specialist Cardiology 02/11/23 Fabien Burgos NP Specialist Cardiology 02/11/23 Angelica Price MD [address] [place] [address] Specialist Cardiology 03/11/23 documented as of this encounter
--- OUTSIDE RECORDS SUMMARY | 2024-07-15 15:16 | XMS_ITS | Encounter Summary ---
Author Organization [facility] Address [address] [place] [address] Care Team Providers Care Barrel Raiser Helper Name Role Phone Gael Coffman MD Primary Care Provider Unavail able Aram Modi MD Primary Care Provider Yanet Gilmore Pcp Primary Care Provider UnavailRavinder Wallace MD Unavailable [phone] Fabien Burgos NP Unavailable [phone] Aram Modi MD Primary Care Provider Angelica Cardozo MD Unavailable [phone] Encounter Details Date Type Department Care Team Description 05/17/2012 [facility] Medical Records [address] [place] [address] Dao Guy Social History Tobacco Use Types [...] on filedocumented in this encounter Care Teams Barrel Raiser Helper Relationship Specialty Start Date End Date Gael Coffman MD PCP - General 06/10/01 04/21/17 Aram Modi MD PCP - General Internal Medicine 04/22/17 09/10/20 [facility], Pcp PCP - General Internal Medicine 09/11/20 02/17/23 Aram Modi MD PCP - General Internal Medicine 02/18/23 Ravinder Jose MD Specialist Cardiology 02/11/23 Fabien Burgos NP Specialist Cardiology 02/11/23 Angelica Price MD [address] [place] [address] Specialist Cardiology 03/11/23 documented as of this encounter
--- OUTSIDE RECORDS SUMMARY | 2024-07-15 15:16 | XMS_ITS | Encounter Summary ---
Author Organization [facility] Address [address] [place] [address] Care Team Providers Care Orthodontist Name Role Phone Aram Modi MD Primary Care Provider Yanet Gilmore Pcp Primary Care Provider [facility] Ravinder Salvador MD Unavailable [phone] Fabien Burgos NP Unavailable [phone] Aram Modi MD Primary Care Provider Unava Angelica Russell MD Unavailable [phone] Encounter Details Date Type Department Care Team Description 03/22/2020 Orders Only Medicine/Pediatrics - [address] [id number] Aram Modi MD Essential hypertension (Primary Dx) [...] EST [facility] Comment: If patient is -[place], multiply result by 1.21 Chronic Kidney Disease: [...] hypertension documented in this encounter Care Teams Orthodontist Relationship Specialty Start Date End Date Aram Modi MD PCP - General Internal Medicine 04/22/17 09/10/20 [facility] PCP - General Internal Medicine 09/11/20 02/17/23 Aram Modi MD PCP - General Internal Medicine 02/18/23 Ravinder Jose MD Specialist Cardiology 02/11/23 Fabien Burgos NP Specialist Cardiology 02/11/23 Angelica Price MD [address] [address] Specialist Cardiology 03/11/23 documented as of this encounter
--- OUTSIDE RECORDS SUMMARY | 2024-07-15 15:16 | XMS_ITS | Encounter Summary ---
Author Organization [facility] Address [address] [place] [address] Care Team Providers Care Manufacturing Engineer Paint Name Role Phone Gael Coffman MD Primary Care Provider Unavail able Aram Modi MD Primary Care Provider Yanet Gilmore Pcp Primary Care Provider UnavailRavinder Wallace MD Unavailable [phone] Fabien Burgos NP Unavailable [phone] Aram Modi MD Primary Care Provider Angelica Cardozo MD Unavailable [phone] Encounter Details Date Type Department Care Team Description 11/28/2011 Cargo Supervisor Report Medical Records [address] [place] [id number] Scott Souza Social History Tobacco Use Types [...] filedocumented in this encounter Care Teams Manufacturing Engineer Paint Relationship Specialty Start Date End Date Gael Coffman MD PCP - General 06/10/01 04/21/17 Aram Modi MD PCP - General Internal Medicine 04/22/17 09/10/20 [facility], Pcp PCP - General Internal Medicine 09/11/20 02/17/23 Aram Modi MD PCP - General Internal Medicine 02/18/23 Ravinder Jose MD Specialist Cardiology 02/11/23 Fabien Burgos NP Specialist Cardiology 02/11/23 Angelica Price MD [address] [place] [address] Specialist Cardiology 03/11/23 documented as of this encounter
--- OUTSIDE RECORDS SUMMARY | 2024-07-15 15:16 | XMS_ITS | Encounter Summary ---
Author Organization [facility] Address [address] [place] [address] Care Team Providers Care Stave Inspector Name Role Phone Gael Coffman MD Primary Care Provider Unavail able Aram Modi MD Primary Care Provider Yanet Gilmore Pcp Primary Care Provider UnavailRavinder Wallace MD Unavailable [phone] Fabien Burgos NP Unavailable [phone] Aram Modi MD Primary Care Provider Angelica Cardozo MD Unavailable [phone] Encounter Details Date Type Department Care Team Description 06/30/2015 [facility] Medical Records [address] [place] [address] Reilly Gaffney MD Social History Tobacco Use [...] on filedocumented in this encounter Care Teams Stave Inspector Relationship Specialty Start Date End Date Gael Coffman MD PCP - General 06/10/01 04/21/17 Aram Modi MD PCP - General Internal Medicine 04/22/17 09/10/20 [facility], Pcp PCP - General Internal Medicine 09/11/20 02/17/23 Aram Modi MD PCP - General Internal Medicine 02/18/23 Ravinder Jose MD Specialist Cardiology 02/11/23 Fabien Burgos NP Specialist Cardiology 02/11/23 Angelica Price MD [address] [place] [address] Specialist Cardiology 03/11/23 documented as of this encounter
--- OUTSIDE RECORDS SUMMARY | 2024-07-15 15:16 | XMS_ITS | Encounter Summary ---
Author Organization [facility] Address [address] [place] [address] Care Team Providers Care Pai Gow Manager Name Role Phone Gael Coffman MD Primary Care Provider Unavail able Aram Modi MD Primary Care Provider Yanet Gilmore Pcp Primary Care Provider UnavailRavinder Wallace MD Unavailable [phone] Fabien Burgos NP Unavailable [phone] Aram Modi MD Primary Care Provider Angelica Cardozo MD Unavailable [phone] Encounter Details Date Type Department Care Team Description 11/16/2009 Guest History Clerk Report Medical Records [address] [place] [id number] Scott Souza Social History Tobacco Use Types [...] on filedocumented in this encounter Care Teams Pai Gow Manager Relationship Specialty Start Date End Date Gale Coffman MD PCP - General 06/10/01 04/21/17 Aram Modi MD PCP - General Internal Medicine 04/22/17 09/10/20 [facility], Pcp PCP - General Internal Medicine 09/11/20 02/17/23 Aram Modi MD PCP - General Internal Medicine 02/18/23 Ravinder Jose MD Specialist Cardiology 02/11/23 Fabien Burgos NP Specialist Cardiology 02/11/23 Angelica Price MD [address] [place] [address] Specialist Cardiology 03/11/23 documented as of this encounter
--- OUTSIDE RECORDS SUMMARY | 2024-07-15 15:16 | XMS_ITS | Encounter Summary ---
Author Organization [facility] Address [address] [place] [address] Care Team Providers Care Disaster Recovery Consultant Name Role Phone Gael Coffman MD Primary Care Provider Unavail able Aram Modi MD Primary Care Provider Yanet Gilmore Pcp Primary Care Provider UnavailRavinder Wallace MD Unavailable [phone] Fabien Burgos NP Unavailable Aram Modi MD Primary Care Provider Angelica Cardozo MD Unavailable [phone] Encounter Details Date Type Department Care Team Description 12/03/2011 Teller Manager Report Medical Records [address] [place] [id number] Reilly Gaffney MD Social History Tobacco Use [...] on filedocumented in this encounter Care Teams Disaster Recovery Consultant Relationship Specialty Start Date End Date Gael Coffman MD PCP - General 06/10/01 04/21/17 Aram Modi MD PCP - General Internal Medicine 04/22/17 09/10/20 [facility], Pcp PCP - General Internal Medicine 09/11/20 02/17/23 Aram Modi MD PCP - General Internal Medicine 02/18/23 Ravinder Jose MD Specialist Cardiology 02/11/23 Fabien Burgos NP Specialist Cardiology 02/11/23 Angelica Price MD [address] [place] [address] Specialist Cardiology 03/11/23 documented as of this encounter
--- OUTSIDE RECORDS SUMMARY | 2024-07-15 15:16 | XMS_ITS | Encounter Summary ---
Author Organization [facility] Address [address] [place] [address] Care Team Providers Care Chief Privacy Officer Name Role Phone Aram Modi MD Primary Care Provider Yanet Gilmore, Pcp Primary Care Provider Unavailabl Ravinder Salvador MD Unavailable [phone] Fabien Burgos NP Unavailable [phone] Aram Modi MD Primary Care Provider Unava Angelica Russell MD Unavailable Encounter Details Date Type Department Care Team Description 07/16/2019 Change Management Expert Report Medical Records [address] [place] [id number] [place], [place] [address] [place] [address] [id number] Social History Tobacco Use Types Packs/Day Years [...] filedocumented in this encounter Care Teams Chief Privacy Officer Relationship Specialty Start Date End Date Aram Modi MD PCP - General Internal Medicine 04/22/17 09/10/20 [facility], Pcp PCP - General Internal Medicine 09/11/20 02/17/23 Aram Modi MD PCP - General Internal Medicine 02/18/23 Ravinder Jose MD Specialist Cardiology 02/11/23 Fabien Burgos NP Specialist Cardiology 02/11/23 Angelica Price MD [address] [place] [address] Specialist Cardiology 03/11/23 documented as of this encounter
--- OUTSIDE RECORDS SUMMARY | 2024-07-15 15:16 | XMS_ITS | Encounter Summary ---
Author Organization [facility] Address [address] [place] [address] Care Team Providers Care Back Pad Inspector Name Role Phone Gael Coffman MD Primary Care Provider Unavail able Aram Modi MD Primary Care Provider Yanet Gilmore Pcp Primary Care Provider UnavailRavinder Wallace MD Unavailable [phone] Fabien Burgos NP Unavailable [phone] Aram Modi MD Primary Care Provider Angelica Cardozo MD Unavailable [phone] Reason for Visit * Reason Onset Date Comments Advice 09/10/2015 Encounter Details Date Type Department Care Team Description 09/10/2015 Pt. Non Urgent Medical Question Adult Medicine - [place] [address] [place] [address] Gael Coffman MD Social History Tobacco Use [...] the system. I will get them in [place] to my home. Thank you, Shan Velez documented in this encounter Plan of Treatment Not on file documented as of this encounter Visit Diagnoses Not on filedocumented in this encounter Care Teams Back Pad Inspector Relationship Specialty Start Date End Date Gael Coffman MD PCP - General 06/10/01 04/21/17 Aram Modi MD PCP - General Internal Medicine 04/22/17 09/10/20 [facility] PCP - General Internal Medicine 09/11/20 02/17/23 Aram Modi MD PCP - General Internal Medicine 02/18/23 Ravinder Jose MD Specialist Cardiology 02/11/23 Fabien Burgos NP Specialist Cardiology 02/11/23 Angelica Price MD [address] [place] [address] Specialist Cardiology 03/11/23 documented as of this encounter
--- OUTSIDE RECORDS SUMMARY | 2024-07-15 15:16 | XMS_ITS | Encounter Summary ---
Author Organization [facility] Address [address] [place] [address] Care Team Providers Care Studio Assistant Name Role Phone Gael Coffman MD Primary Care Provider Unavail able Aram Modi MD Primary Care Provider Luis E Parker Primary Care Provider UnavailRavinder Wallace MD Unavailable [phone] Fabien Burgos NP Unavailable [phone] Aram Modi MD Primary Care Provider Angelica Cardozo MD Unavailable [phone] Encounter Details Date Type Department Care Team Description 10/13/2015 Section Cutter Report Medical Records [address] [place] [id number] Ricky Douglas Social History Tobacco Use Types [...] on filedocumented in this encounter Care Teams Studio Assistant Relationship Specialty Start Date End Date Gael Coffman MD PCP - General 06/10/01 04/21/17 Aram Modi MD PCP - General Internal Medicine 04/22/17 09/10/20 [facility], Pcp PCP - General Internal Medicine 09/11/20 02/17/23 Aram Modi MD PCP - General Internal Medicine 02/18/23 Ravinder Jose MD Specialist Cardiology 02/11/23 Fabien Burgos NP Specialist Cardiology 02/11/23 Angelica Price MD [address] [place] [place] [address] Specialist Cardiology 03/11/23 documented as of this encounter
--- OUTSIDE RECORDS SUMMARY | 2024-07-15 15:16 | XMS_ITS | Encounter Summary ---
Author Organization [facility] Address [address] [place] [address] Care Team Providers Care Inset Cutter Name Role Phone Aram Modi MD Primary Care Provider Unakuldeep Gilmore Pcp Primary [facility] Ravinder Salvador MD Unavailable [phone] Fabien Burgos NP Unavailable Aram Modi MD Primary Care Provider Unava Angelica Russell MD Unavailable [phone] Encounter Details Date Type Department Care Team Description 12/28/2019 Orders Only Nephrology - [address] [address] Abhishek Haynes MD [address] [place] [address] [id number] Social History Tobacco Use Types Packs/Day Years [...] on filedocumented in this encounter Care Teams Inset Cutter Relationship Specialty Start Date End Date Aram Modi MD PCP - General Internal Medicine 04/22/17 09/10/20 [facility], Pcp PCP - General Internal Medicine 09/11/20 02/17/23 Aram Modi MD PCP - General Internal Medicine 02/18/23 Ravinder Jose MD Specialist Cardiology 02/11/23 Fabien Burgos NP Specialist Cardiology 02/11/23 Angelica Price MD [address] [place] [address] Specialist Cardiology 03/11/23 documented as of this encounter
--- OUTSIDE RECORDS SUMMARY | 2024-07-15 15:16 | XMS_ITS | Encounter Summary ---
Author Organization [facility] Address [address] [place] [address] Care Team Providers Care Fire And Explosion Investigator Name Role Phone Gael Coffman MD Primary Care Provider Unavail able Aram Modi MD Primary Care Provider Yanet Gilmore Pcp Primary Care Provider UnavailRavinder Wallace MD Unavailable [phone] Fabien Burgos NP Unavailable [phone] Aram Modi MD Primary Care Provider Angelica Cardozo MD Unavailable [phone] Encounter Details Date Type Department Care Team Description 06/30/2015 [facility] Medical Records [address] [place] [address] Abstract, Provider Social History Tobacco Use Types [...] on filedocumented in this encounter Care Teams Fire And Explosion Investigator Relationship Specialty Start Date End Date Gael Coffman MD PCP - General 06/10/01 04/21/17 Aram Modi MD PCP - General Internal Medicine 04/22/17 09/10/20 [facility], Pcp PCP - General Internal Medicine 09/11/20 02/17/23 Aram Modi MD PCP - General Internal Medicine 02/18/23 Ravinder Jose MD Specialist Cardiology 02/11/23 Fabien Burgos NP Specialist Cardiology 02/11/23 Angelica Price MD [address] [place] [address] Specialist Cardiology 03/11/23 documented as of this encounter
--- OUTSIDE RECORDS SUMMARY | 2024-07-15 15:16 | XMS_ITS | Clinical Summary ---
Author Organization Unknown Care Team Providers Care Samples And Repairs Preparer Name Role Phone STACIE RODRIGUEZ MD Unavailable Unavailable DARWIN PT, NELL Unavailable Unavailable CLARISA CHANNELER RUNNER, NELL Unavailable Unavailable Payers Payer Name Policy Type Policy Number Effective Date Expira tion Date MEDICARE.NGS.PDGM [id number] Problems Condition Name Condition Details Condition Category Status Onset Date Resolution Date Last Treatment Date Treating Clinician Comments AFTERCARE FOLLOWING JOINT REPLACEMENT SURGERY Active 06-28 00:00: 00 PRESENCE OF RIGHT ARTIFICIAL KNEE JOINT Active 06-28 00:00: 00 UNSPECIFIED OSTEOARTHRIT IS, UNSPECIFIED SITE Active 05-19 00:00: 00 POLYMYALGIA RHEUMATICA Active 05-19 00:00: 00 HYPERTENSIVE CHRONIC KIDNEY DISEASE W STG 1-4/UNSP CHR KDNY Active 05-19 00:00: 00 CHRONIC KIDNEY DISEASE, STAGE 3 UNSPECIFIED Active 05-19 00:00: 00 ANEMIA IN CHRONIC KIDNEY DISEASE Active 05-19 00:00: 00 DORSALGIA, UNSPECIFIED Active 05-19 00:00: 00 DIAPHRAGMATI C HERNIA WITHOUT OBSTRUCTION OR GANGRENE Active 05-19 00:00: 00 HYPERLIPIDEM IA, UNSPECIFIED Active 05-19 00:00: 00 DISORDER OF THYROID, UNSPECIFIED Active 05-19 00:00: 00 GOUT, UNSPECIFIED Active 05-19 00:00: 00 Irritable bowel syndrome, unspecified Active 05-19 00:00: 00 VENOUS INSUFFICIENC Y (CHRONIC) (PERIPHERAL) Active - 00:00: 00 CARDIOMYOPAT HY, UNSPECIFIED Active 05-19 00:00: 00 OBSTRUCTIVE SLEEP APNEA (ADULT) (PEDIATRIC) Active 05-19 00:00: 00 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 Active 05-19 00:00: 00 ATRIOVENTRIC ULAR BLOCK, SECOND DEGREE Active 05-19 00:00: 00 PRESENCE OF CARDIAC PACEMAKER Active 05-19 00:00: 00 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 05-19 00:00: 00 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 05-19 00:00: 00 PERSONAL HISTORY OF MALIGNANT NEOPLASM OF BRONCHUS AND LUNG Active 05-19 00:00: 00 PENITENTIARY (CURRENT) USE OF ASPIRIN Active 05-19 00:00: 00 Allergies, Adverse Reactions, Alerts Allergy Name Allergy Type Status Severity Reaction(s) Onset Date Inactive Date Treating Clinician Comments LACTOSE Propensity to adverse reactions Active 2024-05 15:12:5 2 MORPHINE Propensity to adverse reactions Active 2024-05 15:12:5 8 DILAUDID Propensity to adverse reactions Active 2024-05 15:13:0 5 Vital Signs Vital Name Observation Time Observation Value Commen ts Temperature 2024-07-14 12:58:00.000 98.1 [degF] Temperature 2024-07-13 09:50:00.000 98.1 [degF] Temperature 2024-07-09 09:20:00.000 98.1 [degF] Temperature 2024-07-07 11:40:00.000 98.1 [degF] Temperature 2024-07-06 10:51:00.000 98.1 [degF] Temperature 2024-07-02 13:44:00.000 98.1 [degF] Temperature 2024-07-01 15:51:00.000 98.6 [degF] BMI (%) 2024-07-01 15:51:00.000 28 kg/m2 Height 2024-07-01 15:51:00.000 65 [in_us] Pulse 2024-07-14 12:58:00.000 72 /min Pulse 2024-07-13 09:50:00.000 72 /min Pulse 2024-07-09 09:20:00.000 72 /min Pulse 2024-07-07 11:40:00.000 72 /min Pulse 2024-07-06 10:51:00.000 72 /min Pulse 2024-07-02 13:44:00.000 76 /min Pulse 2024-07-01 15:51:00.000 65 /min O2 Saturation (%) 2024-07-14 12:58:00.000 98 % O2 Saturation (%) 2024-07-13 09:50:00.000 98 % O2 Saturation (%) 2024-07-09 09:20:00.000 97 % O2 Saturation (%) 2024-07-07 11:40:00.000 98 % O2 Saturation (%) 2024-07-06 10:51:00.000 98 % O2 Saturation (%) 2024-07-01 15:51:00.000 93 % Respirations 2024-07-14 12:58:00.000 16 /min Respirations 2024-07-13 09:50:00.000 16 /min Respirations 2024-07-09 09:20:00.000 17 /min Respirations 2024-07-07 11:40:00.000 16 /min Respirations 2024-07-06 10:51:00.000 16 /min Respirations 2024-07-02 13:44:00.000 16 /min Respirations 2024-07-01 15:51:00.000 18 /min Weight (lbs) 2024-07-01 15:51:00.000 173 [lb_av] Systolic Blood Pressure 2024-07-14 12:58:00.000 116 mm [Hg] Systolic Blood Pressure 2024-07-13 09:50:00.000 132 mm [Hg] Systolic Blood Pressure 2024-07-09 09:20:00.000 110 mm [Hg] Systolic Blood Pressure 2024-07-07 11:40:00.000 110 mm [Hg] Systolic Blood Pressure 2024-07-06 10:51:00.000 112 mm [Hg] Systolic Blood Pressure 2024-07-02 13:44:00.000 100 mm [Hg] Systolic Blood Pressure 2024-07-01 15:51:00.000 118 mm [Hg] Diastolic Blood Pressure 2024-07-14 12:58:00.000 62 mm [Hg] Diastolic Blood Pressure 2024-07-13 09:50:00.000 84 mm [Hg] Diastolic Blood Pressure 2024-07-09 09:20:00.000 65 mm [Hg] Diastolic Blood Pressure 2024-07-07 11:40:00.000 64 mm [Hg] Diastolic Blood Pressure 2024-07-06 10:51:00.000 68 mm [Hg] Diastolic Blood Pressure 2024-07-02 13:44:00.000 58 mm [Hg] Diastolic Blood Pressure 2024-07-01 15:51:00.000 58 mm [Hg] Plan of Treatment Planned Activity Planned Date Details Comments Future Scheduled Test BED MOBILI TY (PT/CHANNELER RUNNER) [code = BED MOBILITY (PT/CHANNELER RUNNER)] Future Scheduled Test PT/CHANNELER RUNNER TO PROVIDE GAIT TRAINING FOR IMPROVED MOBILITY AND /OR TO NORMALIZE GAIT PATTERN [code = PT/CHANNELER RUNNER TO PROVIDE GAIT TRAINING FOR IMPROVED MOBILITY AND /OR TO NORMALIZE GAIT PATTERN] Future Scheduled Test THERAPEUTI C EXERCISES AND ESTABLISHING A HOME EXERCISE PROGRAM (PT/CHANNELER RUNNER) [code = THERAPEUTIC EXERCISES AND ESTABLISHING A HOME EXERCISE PROGRAM (PT/CHANNELER RUNNER)] Future Scheduled Test PT/CHANNELER RUNNER TO PROVIDE STAIR TRAINING [code = PT/CHANNELER RUNNER TO PROVIDE STAIR TRAINING] Future Scheduled Test PT / CHANNELER RUNNER T O MONITOR AND EDUCATE ON OXYGEN SATURATION DURING ADLS/IADLS, NOTIFY PHYSICIAN AND/OR THE RN CLINICAL JEWELRY BENCH WORKER FOR PHYSICIAN NOTIFICATION AND IF O2 SATS BELOW PHYSICIAN ORDERED PARAMETERS AFTER 10 MIN OF REST [code = PT / CHANNELER RUNNER TO MONITOR AND EDUCATE ON OXYGEN SATURATION DURING ADLS/IADLS, NOTIFY PHYSICIAN AND/OR THE RN CLINICAL JEWELRY BENCH WORKER FOR PHYSICIAN NOTIFICATION AND IF O2 SATS BELOW PHYSICIAN ORDERED PARAMETERS AFTER 10 MIN OF REST] Future Scheduled Test PT / CHANNELER RUNNER M AY EDUCATE ON PAIN MANAGEMENT CLINICALLY INDICATED, INCLUDING NON-PHARMACOLOGICAL PAIN REDUCTION TECHNIQUES AND USE OF CRYOTHERAPY OR HEAT UP TO 20 MIN AT A TIME FOR PAIN MANAGEMENT 4 TIMES PER DAY TO RIGHT KNEE [code = PT / CHANNELER RUNNER MAY EDUCATE ON PAIN MANAGEMENT CLINICALLY INDICATED, INCLUDING NON-PHARMACOLOGICAL PAIN REDUCTION TECHNIQUES AND USE OF CRYOTHERAPY OR HEAT UP TO 20 MIN AT A TIME FOR PAIN MANAGEMENT 4 TIMES PER DAY TO RIGHT KNEE] Future Scheduled Test AGENCY MAY PERFORM A RESUMPTION OF CARE VISIT FOLLOWING ANY HOSPITAL ADMISSION. PT TO EVALUATE, OBSERVE / ASSESS, AND MONITOR, CHANNELER RUNNER TO OBSERVE AND MONITOR, PROVIDE SKILLED THERAPEUTIC INTERVENTION, ACTIVITY, EDUCATION, AND TRAINING TO ADDRESS; [code = AGENCY MAY PERFORM A RESUMPTION OF CARE VISIT FOLLOWING ANY HOSPITAL ADMISSION. PT TO EVALUATE, OBSERVE / ASSESS, AND MONITOR, CHANNELER RUNNER TO OBSERVE AND MONITOR, PROVIDE SKILLED THERAPEUTIC INTERVENTION, ACTIVITY, EDUCATION, AND TRAINING TO ADDRESS;] Future Scheduled Test NEUROMUSCU LAR RE-EDUCATION / BALANCE / POSTURAL CONTROL (PT) [code = NEUROMUSCULAR RE-EDUCATION / BALANCE / POSTURAL CONTROL (PT)] Future Scheduled Test PT/CHANNELER RUNNER TO TEACH KNEE REPLACEMENT SELF-MANAGEMENT [code = PT/CHANNELER RUNNER TO TEACH KNEE REPLACEMENT SELF-MANAGEMENT] Future Scheduled Test PT / CHANNELER RUNNER T O OBSERVE WOUND/INCISION AND/OR INTACT DRESSING ON RIGHT KNEE AND REPORT EARLY SIGNS AND SYMPTOMS OF WOUND DETERIORATION, COMPLICATIONS, OR INFECTION TO PHYSICIAN AND/OR THE RN CLINICAL JEWELRY BENCH WORKER FOR PHYSICIAN NOTIFICATION. NON REMOVABLE AQUACEL DSG TO BE REMOVED BY SURGEON IN 2 WEEKS AT F/U VISIT [code = PT / CHANNELER RUNNER TO OBSERVE WOUND/INCISION AND/OR INTACT DRESSING ON RIGHT KNEE AND REPORT EARLY SIGNS AND SYMPTOMS OF WOUND DETERIORATION, COMPLICATIONS, OR INFECTION TO PHYSICIAN AND/OR THE RN CLINICAL JEWELRY BENCH WORKER FOR PHYSICIAN NOTIFICATION. NON REMOVABLE AQUACEL DSG TO BE REMOVED BY SURGEON IN 2 WEEKS AT F/U VISIT] Goal Patient Goal - R ETURN TO PAIN-FREE AMBULATION INCLUDING ABILITY TO WALK DOWN HILL AT BACK OF PROPERTY AND ACCESS DOCK/POND Goal Provider Goal - PT STG: PATIENT WILL BE ABLE TO ACCESS HIS OWN BED INDEPENDENTLY FOR SLEEPING WITHIN 3 WEEKS TO REDUCE RISK OF HIP FLEXION CONTRACTURES. Goal Provider Goal - PT LTG: PATIENT WILL DEMONSTRATE REDUCED GAIT DEVIATIONS TO REDUCE THE RISK FOR FALLING AND MINIMIZE STRAIN ON KNEES/HIPS AND BACK EVIDENCED BY EQUAL STEP LENGTH RIGT/LEFT, EQUAL STANCE TIME RIGHT/LEFTMPROVED, IMPROVED HEEL STRIKE ON RIGHT USING 2-WHEELED WALKER TO WALK INDEPENDENTLY INSIDE HOME WITHIN 3 WEEKS. Goal Provider Goal - PT LTG: PATIENT WILL DEMONSTRATE IMPROVED FUNCTIONAL STRENGTH EVIDENCED BY FIVE TIMES SIT TO STAND TEST (CUT SCORE >12 SECONDS INDICATES AN INCREASED FALL RISK) IMPROVING FROM NOT TESTED TO 12 SECONDS WITHIN 9 WEEKS. Goal Provider Goal - PT STG: PATIENT WILL DEMONSTRATE FUNCTIONAL ABILITY TO SAFELY ASCEND/DESCEND STEPS OUTSIDE OF HOME TO BE ABLE TO GET TO FOLLOW-UP MD APPOINTMENTS. PT LTG: PATIENT WILL DEMONSTRATE IMPROVED ABILITY TO SAFELY NEGOTIATE 1 FLIGHT OF STAIRS USING RAILING RAILING TO ACCESS BASEMENT WITHIN 9 WEEKS Goal Provider Goal - PT LTG: PATIENT WILL MAINTAIN OXYGEN SATURATION WITHIN PHYSICIAN ORDERED PARAMETERS THROUGHOUT EPISODE OF CARE. Goal Provider Goal - PT GOAL: PATIENT WILL DEMONSTRATE UNDERSTANDING OF PAIN MANAGEMENT TECHNIQUES EVIDENCED BY REDUCED PAIN WITH MOVEMENT IN RIGHT KNEE FROM 8 TO 3 WITHIN 9 WEEKS Goal Provider Goal - Goal Provider Goal - PT LTG: PATIENT WILL DEMONSTRATE IMPROVED POSTURAL CONTROL AND SENSORY INTEGRATION OF THEIR BALANCE SYSTEMS EVIDENCED BY PROGRESSION FROM USE OF 2-WHEELED WALKER TO LRAD WHILE MAINTAINING GOOD SYMMETRY IN GAIT WITHIN 9 WEEKS. Goal Provider Goal - PT GOAL: PATIENT WILL DEMONSTRATE OPTIMAL OUTCOMES, INCLUDING INCREASED ROM AND STRENGTH AND FUNCTIONAL MOBILITY FOLLOWING KNEE SURGERY BY END OF EPISODE. Goal Provider Goal - PT GOAL: THE PATIENT WILL NOT DEMONSTRATE ANY WOUND COMPLICATIONS DURING THE EPISODE OF CARE. Encounters Start Date/Time End Date/Time Encounter Type Admission Type Attending [facility] Care Department Encounter ID Discharge Date Discharge Status Discharge Condition Discharge Reason Percent Goals Met 2024-07-01 00:00:00 2024-08-29 00:00:00 Outpatient NEW ADMISSION NELL GRANADOS [facility] [id number] .[id number]
--- OUTSIDE RECORDS SUMMARY | 2024-07-15 15:16 | XMS_ITS | Encounter Summary ---
Author Organization [facility] Address [address] [place] [address] Care Team Providers Care Social Media Analyst Name Role Phone Aram Modi MD Primary Care Provider Unakuldeep Gilmore Pcp Primary Care Provider Unavailmulticare health Ravinder Salvador MD Unavailable [phone] Fabien Burgos NP Unavailable Aram Modi MD Primary Care Provider Unava Angelica Russell MD Unavailable [phone] Encounter Details Date Type Department Care Team Description 09/01/2018 Pt. Non Urgent Medic al Question Medicine/Pediatrics - [address] [id number] Aram Modi MD Social History Tobacco Use [...] on filedocumented in this encounter Care Teams Social Media Analyst Relationship Specialty Start Date End Date Aram Modi MD PCP - General Internal Medicine 04/22/17 09/10/20 [facility] [place] PCP - General Internal Medicine 09/11/20 02/17/23 Aram Modi MD PCP - General Internal Medicine 02/18/23 Ravinder Jose MD Specialist Cardiology 02/11/23 Fabien Burgos NP Specialist Cardiology 02/11/23 Angelica Price MD [address] [place] [address] Specialist Cardiology 03/11/23 documented as of this encounter
--- OUTSIDE RECORDS SUMMARY | 2024-07-15 15:16 | XMS_ITS | Encounter Summary ---
Author Organization [facility] Address [address] [place] [address] Care Team Providers Care Deputy Chief Executive Name Role Phone Ravinder Jose MD Unavailable [phone] Fabien Burgos NP Unavailable [phone] Aram Modi MD Primary Care Provider Angelica Cardozo MD Unavailable [phone] Encounter Details Date Type Department Care Team Description 02/23/2024 Orders Only Cardio [facility] [address] [place] [address] [address] [place] [id number] Default, Provider Social History Tobacco Use Types [...] on filedocumented in this encounter Care Teams Deputy Chief Executive Relationship Specialty Start Date End Date Aram Modi MD PCP - General Internal Medicine 02/18/23 Ravinder Jose MD Specialist Cardiology 02/11/23 Fabien Burgos NP Specialist Cardiology 02/11/23 Angelica Price MD [address] [place] [address] Specialist Cardiology 03/11/23 documented as of this encounter
--- OUTSIDE RECORDS SUMMARY | 2024-07-15 15:16 | XMS_ITS | Encounter Summary ---
Author Organization [facility] Address [address] [place] [address] Care Team Providers Care Eligibility Counselor Name Role Phone Geal Coffman MD Primary Care Provider Unavail able Aram Modi MD Primary Care Provider Yanet Gilmore Pcp Primary Care Provider UnavailRavinder Wallace MD Unavailable [phone] Fabien Burgos NP Unavailable [phone] Aram Modi MD Primary Care Provider Angelica Cardozo MD Unavailable [phone] Encounter Details Date Type Department Care Team Description 02/06/2011 [facility] Medical Records [address] [place] [address] Trupti Britton Social History Tobacco Use Types [...] on filedocumented in this encounter Care Teams Eligibility Counselor Relationship Specialty Start Date End Date Gael Coffman MD PCP - General 06/10/01 04/21/17 Aram Modi MD PCP - General Internal Medicine 04/22/17 09/10/20 [facility] PCP - General Internal Medicine 09/11/20 02/17/23 Aram Modi MD PCP - General Internal Medicine 02/18/23 Ravinder Jose MD Specialist Cardiology 02/11/23 Fabien Burgos NP Specialist Cardiology 02/11/23 Angelica Price MD [address] [place] [address] Specialist Cardiology 03/11/23 documented as of this encounter
--- OUTSIDE RECORDS SUMMARY | 2024-07-15 15:16 | XMS_ITS | Encounter Summary ---
Author Organization [facility] Address [address] [place] [address] Care Team Providers Care Trombone Slide Assembler Name Role Phone Gael Coffman MD Primary Care Provider Unavail able Aram Modi MD Primary Care Provider Yanet Gilmore Pcp Primary Care Provider UnavailRavinder Wallace MD Unavailable [phone] Fabien Burgos NP Unavailable [phone] Aram Modi MD Primary Care Provider Angelica Cardozo MD Unavailable [phone] Encounter Details Date Type Department Care Team Description 01/20/2016 Pt. Non Urgent Medical Question Rheumatology - [place] [address] [place] [address] Simon Garcia MD Social History Tobacco Use [...] on filedocumented in this encounter Care Teams Trombone Slide Assembler Relationship Specialty Start Date End Date Gael Coffman MD PCP - General 06/10/01 04/21/17 Aram Modi MD PCP - General Internal Medicine 04/22/17 09/10/20 [facility] Pcp PCP - General Internal Medicine 09/11/20 02/17/23 Aram Modi MD PCP - General Internal Medicine 02/18/23 Ravinder Jose MD Specialist Cardiology 02/11/23 Fabien Burgos NP Specialist Cardiology 02/11/23 Angelica Price MD [address] [place] [address] Specialist Cardiology 03/11/23 documented as of this encounter
--- OUTSIDE RECORDS SUMMARY | 2024-07-15 15:16 | XMS_ITS | Encounter Summary ---
Author Organization [facility] Address [address] [place] [address] Care Team Providers Care Lounge Car Attendant Name Role Phone Gael Coffman MD Primary Care Provider Unavail able Aram Modi MD Primary Care Provider Yanet Gilmore Pcp Primary Care Provider UnavailRavinder Wallace MD Unavailable [phone] Fabien Burgos NP Unavailable [phone] Aram Modi MD Primary Care Provider Angelica Cardozo MD Unavailable [phone] Encounter Details Date Type Department Care Team Description 12/26/2010 [facility] Medical Records [address] [place] [address] Steven Harrison Social History Tobacco Use Types Packs/Day Years [...] on filedocumented in this encounter Care Teams Lounge Car Attendant Relationship Specialty Start Date End Date Gael Coffman MD PCP - General 06/10/01 04/21/17 Aram Modi MD PCP - General Internal Medicine 04/22/17 09/10/20 [facility], Pcp PCP - General Internal Medicine 09/11/20 02/17/23 Aram Modi MD PCP - General Internal Medicine 02/18/23 Ravinder Jose MD Specialist Cardiology 02/11/23 Fabien Burgos NP Specialist Cardiology 02/11/23 Angelica Price MD [address] [place] [address] Specialist Cardiology 03/11/23 documented as of this encounter
--- OUTSIDE RECORDS SUMMARY | 2024-07-15 15:16 | XMS_ITS | Encounter Summary ---
Author Organization [facility] Address [address] [place] [address] Care Team Providers Care Truck Loader Overhead Crane Name Role Phone Aram Modi MD Primary Care Provider Unakuldeep Gilmore Pcp Primary Care Provider Unavailformerly [facility] Ravinder Salvador MD Unavailable [phone] Fabien Burgos NP Unavailable [phone] Aram Modi MD Primary Care Provider Unava Angelica Russell MD Unavailable [phone] Encounter Details Date Type Department Care Team Description 09/08/2018 Pt. Non Urgent Medic al Question Medicine/Pediatrics - [address] [address] Aram Modi MD Social History Tobacco Use [...] Progress Notes * Supriya Rasheed L.P.N. - 09/08/2018 11:52 AM EDTFrom: Cy Barrera Rosie To: Aram Modi MD Sent: 09/08/2018 11:27 AM EDT Subject: Stress test Hi Dr. Schepart, Are there any results yet on my nuclear stress test. I hope as in the adage ???no news is good news?? . Thanks documented in this encounter Plan of Treatment Not on file documented as of this encounter Visit Diagnoses Not on filedocumented in this encounter Care Teams Truck Loader Overhead Crane Relationship Specialty Start Date End Date Aram Modi MD PCP - General Internal Medicine 04/22/17 09/10/20 [facility] PCP - General Internal Medicine 09/11/20 02/17/23 Aram Modi MD PCP - General Internal Medicine 02/18/23 Ravinder Jose MD Specialist Cardiology 02/11/23 Fabien Burgos NP Specialist Cardiology 02/11/23 Angelica Price MD [address] [place] [address] Specialist Cardiology 03/11/23 documented as of this encounter
--- OUTSIDE RECORDS SUMMARY | 2024-07-15 15:16 | XMS_ITS | Encounter Summary ---
Author Organization [facility] Address [address] [place] [address] Care Team Providers Care Beater Dumper Name Role Phone Ravinder Jose MD Unavailable [phone] Fabien Burgos NP Unavailable [phone] Aram Modi MD Primary Care Provider Angelica Cardozo MD Unavailable Reason for Visit * Reason Onset Date Comments preop exam 03/16/2024 Encounter Details Date Type Department Care Team Description 03/16/2024 Telephone Cardio [facility] [address] [place] [address] Drive [address] [place] [id number] Ravinder Jose MD [address] [place] [id number] preop exam Social History Tobacco Use Types [...] Caller: Luis Garcia Orthopedic surgery Phone number: [phone] documented in this encounter Plan of Treatment Not on file documented as of this encounter Visit Diagnoses Not on filedocumented in this encounter Care Teams Beater Dumper Relationship Specialty Start Date End Date Aram Modi MD PCP - General Internal Medicine 02/18/23 Ravinder Jose MD Specialist Cardiology 02/11/23 Fabien Burgos NP Specialist Cardiology 02/11/23 Angelica Price MD [address] [address] Specialist Cardiology 03/11/23 documented as of this encounter
--- OUTSIDE RECORDS SUMMARY | 2024-07-15 15:16 | XMS_ITS | Encounter Summary ---
Author Organization [facility] Address [address] [place] [address] Care Team Providers Care Advertising Project Manager Name Role Phone Aram Modi MD Primary Care Provider Yanet Gilmore, Pcp Primary Care Provider Unavailuniversal health services Ravinder Salvador MD Unavailable [phone] Fabien Burgos NP Unavailable [phone] Aram Modi MD Primary Care Provider Citlalyct Angelica Russell MD Unavailable Encounter Details Date Type Department Care Team Description 12/22/[address] [facility] - [address] [address] Simon Garcia MD Social History Tobacco Use [...] on filedocumented in this encounter Care Teams Advertising Project Manager Relationship Specialty Start Date End Date Aram Modi MD PCP - General Internal Medicine 04/22/17 09/10/20 [facility], Pcp PCP - General Internal Medicine 09/11/20 02/17/23 Aram Modi MD PCP - General Internal Medicine 02/18/23 Ravinder Jose MD Specialist Cardiology 02/11/23 Fabien Burgos NP Specialist Cardiology 02/11/23 Angelica Price MD [address] [facility] [address] [place] [address] Specialist Cardiology 03/11/23 documented as of this encounter
--- OUTSIDE RECORDS SUMMARY | 2024-07-15 15:16 | XMS_ITS | Encounter Summary ---
Author Organization [facility] Address [address] [place] [address] Care Team Providers Care Fence Repairman Name Role Phone Gael Coffman MD Primary Care Provider Unavail able Aram Modi MD Primary Care Provider Yanet Gilmore Pcp Primary Care Provider UnavailRavinder Wallace MD Unavailable [phone] Fabien Burgos NP Unavailable [phone] Aram Modi MD Primary Care Provider Angelica Cardozo MD Unavailable [phone] Reason for Visit * Reason Onset Date Comments Hypertension Clinic Orders 10/30/2016 Order s PENDING for review and signing. Encounter Details Date Type Department Care Team Description 10/30/2016 Telephone Hypertension - [place] [address] [place] [address] Felicitas Love, Pharm.D Hypertension Clinic Orders (Orders [...] Miscellaneous Notes * Telephone Encounter - Gael Cfofman MD - 10/30/2016 12:10 PM EDT I [...] BASIC METABOLIC PANEL (11/20/2016 11:35 AM EDT) [facility] GLUCOSE 106(H) 70 - 100 mg/dL 11/20/2016 3:32 PM T [facility] Comment: Reference range applicable to fasting specimens only Based on recommendations from the ADA and AACE, the fasting glucose reference range has been changed to 70-100 mg/dL. ??This change is effective October 02, 2009 BUN 14 5 - 25 mg/dL 11/20/2016 3:32 PM T [facility] CREAT 1.1 0.7 - 1.5 mg/dL 11/20/2016 3:32 PM [facility] GFR > 60 >60 11/20/2016 3:32 PM EDT [facility] Comment: If patient is -Maltese, multiply result by 1.21 Chronic Kidney Disease: [...] Gael Coffman MD LAB Performing Organization Address City/State/[facility] Co de Phone Number [facility] [address] [facility] documented in this encounter Visit Diagnoses Diagnosis Essential hypertension- Primary Unspecified essential hypertension documented in this encounter Care Teams Fence Repairman Relationship Specialty Start Date End Date Gael Coffman MD PCP - General 06/10/01 04/21/17 Aram Modi MD PCP - General Internal Medicine 04/22/17 09/10/20 [facility] PCP - General Internal Medicine 09/11/20 02/17/23 Aram Modi MD PCP - General Internal Medicine 02/18/23 Ravinder Jose MD Specialist Cardiology 02/11/23 Fabien Burgos NP Specialist Cardiology 02/11/23 Angelica Price MD 300 [facility] [address] [place] [address] Specialist Cardiology 03/11/23 documented as of this encounter
--- OUTSIDE RECORDS SUMMARY | 2024-07-15 15:16 | XMS_ITS | Encounter Summary ---
Author Organization [facility] Address [address] [place] [address] Care Team Providers Care Skiver Box Toe Name Role Phone Gael Coffman MD Primary Care Provider Unavail able Aram Modi MD Primary Care Provider Yanet Gilmore Pcp Primary Care Provider UnavailRavinder Wallace MD Unavailable [phone] Fbaien Burgos NP Unavailable [phone] Aram Modi MD Primary Care Provider Angelica Cardozo MD Unavailable [phone] Encounter Details Date Type Department Care Team Description 05/18/2012 [facility] Medical Records [address] [place] [address] Shamar Cortes MD Social History Tobacco Use Types [...] on filedocumented in this encounter Care Teams Skiver Box Toe Relationship Specialty Start Date End Date Gael Coffman MD PCP - General 06/10/01 04/21/17 Aram Modi MD PCP - General Internal Medicine 04/22/17 09/10/20 [facility], Pcp PCP - General Internal Medicine 09/11/20 02/17/23 Aram Modi MD PCP - General Internal Medicine 02/18/23 Ravinder Jose MD Specialist Cardiology 02/11/23 Fabien Burgos NP Specialist Cardiology 02/11/23 Angelica Price MD [address] [place] [address] Specialist Cardiology 03/11/23 documented as of this encounter
--- OUTSIDE RECORDS SUMMARY | 2024-07-15 15:16 | XMS_ITS | Clinical Summary ---
Author Organization Unknown Care Team Providers Care Tube Coremaker Name Role Phone STACIE RODRIGUEZ MD Unavailable Unavailable DARWIN PT, NELL Unavailable Unavailable CLARISA JAMMER OPERATOR, NELL Unavailable Unavailable Payers Payer Name Policy Type Policy Number Effective Date Expira tion Date MEDICARE.NGS.PDGM [id number] Problems Condition Name Condition Details Condition Category [...] 05-19 00:00: 00 ATHSCL HEART DISEASE OF [place] CORONARY ARTERY W/O ANG PCTRS Active 05-19 00:00: 00 ATRIOVENTRIC ULAR BLOCK, SECOND DEGREE Active 05-19 00:00: 00 PRESENCE OF CARDIAC PACEMAKER Active 05-19 00:00: 00 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 05-19 00:00: 00 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 05-19 00:00: 00 PERSONAL HISTORY OF MALIGNANT NEOPLASM OF BRONCHUS AND LUNG Active 05-19 00:00: 00 [facility] (CURRENT) USE OF ASPIRIN Active 05-19 00:00: [...] Comments Future Scheduled Test BED MOBILI TY (PT/JAMMER OPERATOR) [code = BED MOBILITY (PT/JAMMER OPERATOR)] Future Scheduled Test PT/JAMMER OPERATOR TO PROVIDE GAIT TRAINING FOR IMPROVED MOBILITY AND /OR TO NORMALIZE GAIT PATTERN [code = PT/JAMMER OPERATOR TO PROVIDE GAIT TRAINING FOR IMPROVED MOBILITY AND /OR TO NORMALIZE GAIT PATTERN] Future Scheduled Test THERAPEUTI C EXERCISES AND ESTABLISHING A HOME EXERCISE PROGRAM (PT/JAMMER OPERATOR) [code = THERAPEUTIC EXERCISES AND ESTABLISHING A HOME EXERCISE PROGRAM (PT/JAMMER OPERATOR)] Future Scheduled Test PT/JAMMER OPERATOR TO PROVIDE STAIR TRAINING [code = PT/JAMMER OPERATOR TO PROVIDE STAIR TRAINING] Future Scheduled Test PT / JAMMER OPERATOR T O MONITOR AND EDUCATE ON OXYGEN SATURATION DURING ADLS/IADLS, NOTIFY PHYSICIAN AND/OR THE RN CLINICAL SAS DEVELOPER ANALYST FOR PHYSICIAN NOTIFICATION AND IF O2 SATS BELOW PHYSICIAN ORDERED PARAMETERS AFTER 10 MIN OF REST [code = PT / JAMMER OPERATOR TO MONITOR AND EDUCATE ON OXYGEN SATURATION DURING ADLS/IADLS, NOTIFY PHYSICIAN AND/OR THE RN CLINICAL SAS DEVELOPER ANALYST FOR PHYSICIAN NOTIFICATION AND IF O2 SATS BELOW PHYSICIAN ORDERED PARAMETERS AFTER 10 MIN OF REST] Future Scheduled Test PT / JAMMER OPERATOR M AY EDUCATE ON PAIN MANAGEMENT CLINICALLY INDICATED, INCLUDING NON-PHARMACOLOGICAL PAIN REDUCTION TECHNIQUES AND USE OF CRYOTHERAPY OR HEAT UP TO 20 MIN AT A TIME FOR PAIN MANAGEMENT 4 TIMES PER DAY TO RIGHT KNEE [code = PT / JAMMER OPERATOR MAY EDUCATE ON PAIN MANAGEMENT CLINICALLY INDICATED, INCLUDING NON-PHARMACOLOGICAL PAIN REDUCTION TECHNIQUES AND USE OF CRYOTHERAPY OR HEAT UP TO 20 MIN AT A TIME FOR PAIN MANAGEMENT 4 TIMES PER DAY TO RIGHT KNEE] Future Scheduled Test AGENCY MAY PERFORM A RESUMPTION OF CARE VISIT FOLLOWING ANY HOSPITAL ADMISSION. PT TO EVALUATE, OBSERVE / ASSESS, AND MONITOR, JAMMER OPERATOR TO OBSERVE AND MONITOR, PROVIDE SKILLED THERAPEUTIC INTERVENTION, ACTIVITY, EDUCATION, AND TRAINING TO ADDRESS; [code = AGENCY MAY PERFORM A RESUMPTION OF CARE VISIT FOLLOWING ANY HOSPITAL ADMISSION. PT TO EVALUATE, OBSERVE / ASSESS, AND MONITOR, JAMMER OPERATOR TO OBSERVE AND MONITOR, PROVIDE SKILLED THERAPEUTIC INTERVENTION, ACTIVITY, EDUCATION, AND TRAINING TO ADDRESS;] Future Scheduled Test NEUROMUSCU LAR RE-EDUCATION / BALANCE / POSTURAL CONTROL (PT) [code = NEUROMUSCULAR RE-EDUCATION / BALANCE / POSTURAL CONTROL (PT)] Future Scheduled Test PT/JAMMER OPERATOR TO TEACH KNEE REPLACEMENT SELF-MANAGEMENT [code = PT/JAMMER OPERATOR TO TEACH KNEE REPLACEMENT SELF-MANAGEMENT] Future Scheduled Test PT / JAMMER OPERATOR T O OBSERVE WOUND/INCISION AND/OR INTACT DRESSING ON RIGHT KNEE AND REPORT EARLY SIGNS AND SYMPTOMS OF WOUND DETERIORATION, COMPLICATIONS, OR INFECTION TO PHYSICIAN AND/OR THE RN CLINICAL SAS DEVELOPER ANALYST FOR PHYSICIAN NOTIFICATION. NON REMOVABLE AQUACEL DSG TO BE REMOVED BY SURGEON IN 2 WEEKS AT F/U VISIT [code = PT / JAMMER OPERATOR TO OBSERVE WOUND/INCISION AND/OR INTACT DRESSING ON RIGHT KNEE AND REPORT EARLY SIGNS AND SYMPTOMS OF WOUND DETERIORATION, COMPLICATIONS, OR INFECTION TO PHYSICIAN AND/OR THE RN CLINICAL SAS DEVELOPER ANALYST FOR PHYSICIAN NOTIFICATION. NON REMOVABLE AQUACEL DSG [...] End Date/Time Encounter Type Admission Type Attending [facility] Care Department Encounter ID Discharge Date Discharge Status Discharge Condition Discharge Reason Percent Goals Met 2024-07-01 00:00:00 2024-08-29 00:00:00 Outpatient NEW ADMISSION [facility] [id number]
--- OUTSIDE RECORDS SUMMARY | 2024-07-15 15:16 | XMS_ITS | Clinical Summary ---
Author Organization [facility] Address [address] [place] [address] Care Team Providers Care Metal Welder Name Role Phone Gael Coffman MD Primary Care Provider [phone] Allergies Active Allergy Reactions Criticality Noted Date [...] age to complete this topic Care Teams Metal Welder Relationship Specialty Start Date End Date Gael Coffman MD PCP - General Endocrinology 12/19/16
--- OUTSIDE RECORDS SUMMARY | 2024-07-15 15:16 | XMS_ITS | Encounter Summary ---
Author Organization [facility] Address [address] [place] [address] Care Team Providers Care Racing Secretary And Handicapper Name Role Phone Gael Coffman MD Primary Care Provider Unavail able Aram Modi MD Primary Care Provider Yanet Gilmore Pcp Primary Care Provider UnavailRavinder Wallace MD Unavailable [phone] Fabien Burgos NP Unavailable Aram Modi MD Primary Care Provider Angelica Cardozo MD Unavailable [phone] Encounter Details Date Type Department Care Team Description 10/07/2016 Ambulatory Blood Pressure Monitoring Medical Records [address] [place] [address] Abstract, Provider Social History Tobacco Use Types [...] on filedocumented in this encounter Care Teams Racing Secretary And Handicapper Relationship Specialty Start Date End Date Gael Coffman MD PCP - General 06/10/01 04/21/17 Aram Modi MD PCP - General Internal Medicine 04/22/17 09/10/20 [facility], Pcp PCP - General Internal Medicine 09/11/20 02/17/23 Aram Modi MD PCP - General Internal Medicine 02/18/23 Ravinder Jose MD Specialist Cardiology 02/11/23 Fabien Burgos NP Specialist Cardiology 02/11/23 Angelica Price MD [address] [place] [address] Specialist Cardiology 03/11/23 documented as of this encounter
--- OUTSIDE RECORDS SUMMARY | 2024-07-15 15:16 | XMS_ITS | Encounter Summary ---
Author Organization [facility] Address [address] [place] [address] Care Team Providers Care Community Relations Liaison Name Role Phone Gael Coffman MD Primary Care Provider Unavail able Aram Modi MD Primary Care Provider Yanet Gilmore Pcp Primary Care Provider UnavailRavinder Wallace MD Unavailable [phone] Fabien Burgos NP Unavailable [phone] Aram Modi MD Primary Care Provider Angelica Cardozo MD Unavailable [phone] Encounter Details Date Type Department Care Team Description 08/01/2016 Wellness Visit Medical Records [address] [place] [address] Gael Coffman MD Social History Tobacco Use [...] on filedocumented in this encounter Care Teams Community Relations Liaison Relationship Specialty Start Date End Date Gael Coffman MD PCP - General 06/10/01 04/21/17 Aram Modi MD PCP - General Internal Medicine 04/22/17 09/10/20 [facility], Pcp PCP - General Internal Medicine 09/11/20 02/17/23 Aram Modi MD PCP - General Internal Medicine 02/18/23 Ravinder Jose MD Specialist Cardiology 02/11/23 Fabien Burgos NP Specialist Cardiology 02/11/23 Angelica Price MD [address] [place] [address] Specialist Cardiology 03/11/23 documented as of this encounter
--- OUTSIDE RECORDS SUMMARY | 2024-07-15 15:16 | XMS_ITS | Encounter Summary ---
Author Organization [facility] Address [address] [place] [address] Care Team Providers Care Business Support Name Role Phone Gael Coffman MD Primary Care Provider Unavail able Aram Modi MD Primary Care Provider Yanet Gilmore Pcp Primary Care Provider UnavailRavinder Wallace MD Unavailable [phone] Fabien Burgos NP Unavailable [phone] Aram Modi MD Primary Care Provider Angelica Cardozo MD Unavailable [phone] Encounter Details Date Type Department Care Team Description 06/30/2012 Cardiology Procedure Cardiology - [address] [address] Social History Tobacco Use Types Packs/Day Years [...] on file documented as of this encounter Procedure Notes * Rika Mccollum - 06/30/2012 12:12 PM EST Patient Name: [facility]Z [facility] Cardiology Department Date of Service: HOLTER MONITOR DATE OF HOOKUP: 2012. HOOKUP TIME: 9:02 a.m. DURATION OF HOLTER: 24 hours. REFERRING PHYSICIAN: Gael Coffman M.D. INDICATION: Syncope. INTERPRETATION: 1. The minimum heart rate was 43 beats per minute, the average heart rate was 63 beats per minute, the maximum heart rate was 110 beats per minute. This was all sinus rhythm. 2. There was rare isolated supraventricular ectopy. 3. There was occasional isolated ventricular ectopy. 4. There was no sustained ventricular or supraventricular arrhythmias. 5. There were no sinus pauses or AV block noted. There was occasional borderline first degree AV block. IMPRESSION: 1. Sinus rhythm with occasional isolated ventricular and supraventricular ectopy. 2. No causes for syncope identified. Rika Mccollum MD cc: Gael Coffman M.D. / documented in this encounter Plan of Treatment Not on file documented as of this encounter Visit Diagnoses Not on filedocumented in this encounter Care Teams Business Support Relationship Specialty Start Date End Date Gael Coffman MD PCP - General 06/10/01 04/21/17 Aram Modi MD PCP - General Internal Medicine 04/22/17 09/10/20 [facility] PCP - General Internal Medicine 09/11/20 02/17/23 Aram Modi MD PCP - General Internal Medicine 02/18/23 Ravinder Jose MD Specialist Cardiology 02/11/23 Fabien Burgos NP Specialist Cardiology 02/11/23 Angelica Price MD [address] [place] [address] Specialist Cardiology 03/11/23 documented as of this encounter
--- OUTSIDE RECORDS SUMMARY | 2024-07-15 15:16 | XMS_ITS | Encounter Summary ---
Author Organization [facility] Address [address] [place] [address] Care Team Providers Care Plant Protection Guard Name Role Phone Gael Coffman MD Primary Care Provider Unavail able Aram Modi MD Primary Care Provider Yanet Gilmore Pcp Primary Care Provider UnavailRavinder Wallace MD Unavailable [phone] Fabien Burgos NP Unavailable [phone] Aram Modi MD Primary Care Provider Angelica Cardozo MD Unavailable [phone] Encounter Details Date Type Department Care Team Description 12/24/2010 [facility] Medical Records [address] [place] [address] Abstract, Provider Social History Tobacco Use Types [...] on filedocumented in this encounter Care Teams Plant Protection Guard Relationship Specialty Start Date End Date Gael Coffman MD PCP - General 06/10/01 04/21/17 Aram Modi MD PCP - General Internal Medicine 04/22/17 09/10/20 [facility], Pcp PCP - General Internal Medicine 09/11/20 02/17/23 Aram Modi MD PCP - General Internal Medicine 02/18/23 Ravinder Jose MD Specialist Cardiology 02/11/23 Fabien Burgos NP Specialist Cardiology 02/11/23 Angelica Price MD [address] [place] [address] Specialist Cardiology 03/11/23 documented as of this encounter
--- OUTSIDE RECORDS SUMMARY | 2024-07-15 15:17 | XMS_ITS | Encounter Summary ---
Author Organization [facility] Address [address] [place] [address] Care Team Providers Care Group Reservations Coordinator Name Role Phone Aram Modi MD Primary Care Provider Unakuldeep Gilmore, Pcp Primary Care Provider Unavailabl Ravinder Salvador MD Unavailable [phone] Fabien Burgos NP Unavailable [phone] Aram Modi MD Primary Care Provider Unava Angelica Russell MD Unavailable [phone] Encounter Details Date Type Department Care Team Description 09/01/2017 Orders Only Medicine/Pediatrics - [address] [address] Aram Modi MD Social History Tobacco Use [...] on filedocumented in this encounter Care Teams Group Reservations Coordinator Relationship Specialty Start Date End Date Aram Modi MD PCP - General Internal Medicine 04/22/17 09/10/20 [facility], Pcp PCP - General Internal Medicine 09/11/20 02/17/23 Aram Modi MD PCP - General Internal Medicine 02/18/23 Ravinder Jose MD Specialist Cardiology 02/11/23 Fabien Burgos NP Specialist Cardiology 02/11/23 Angelica Price MD [address] [place] [address] Specialist Cardiology 03/11/23 documented as of this encounter
--- OUTSIDE RECORDS SUMMARY | 2024-07-15 15:17 | XMS_ITS | Encounter Summary ---
Author Organization [facility] Address [address] [place] [address] Care Team Providers Care Arts And Sciences Dean Name Role Phone Ravinder Jose MD Unavailable [phone] Fabien Burgos NP Unavailable [phone] Aram Modi MD Primary Care Provider Angelica Cardozo MD Unavailable [phone] Reason for Visit * Reason Onset Date Comments other 07/08/2023 Back injecntions for pain Encounter Details Date Type Department Care Team Description 07/08/2023 Telephone Cardio [facility] [address] [place] [address] Ravinder Jose MD [address] [place] [address] [id number] other (Back injecntions for pain ) Social History Tobacco Use Types Packs/Day Years [...] Miscellaneous Notes * Telephone Encounter - Damaris Hicks - 07/09/2023 2:19 PM EST Patient scheduled for 3/15/24 with Fabien Burgos. * Telephone Encounter - Rema Lemons NP - 07/08/2023 3:42 PM EST He has missed follow up apointments and has not been seen since February. Preop should be done. Rema Martin * Telephone Encounter - Nickie Vegas - 07/08/2023 11:31 AM EST Patient calling, he is getting a epidural and prednisone injections for his back pain. He will needapproval from our office since he will be partially under anesthesia. Please advise documented in this encounter Plan of Treatment Not on file documented as of this encounter Visit Diagnoses Not on filedocumented in this encounter Care Teams Arts And Sciences Dean Relationship Specialty Start Date End Date Aram Modi MD PCP - General Internal Medicine 02/18/23 Ravinder Jose MD Specialist Cardiology 02/11/23 Fabien Burgos NP Specialist Cardiology 02/11/23 Angelica Price MD [address] [address] Specialist Cardiology 03/11/23 documented as of this encounter
--- OUTSIDE RECORDS SUMMARY | 2024-07-15 15:17 | XMS_ITS | Encounter Summary ---
Author Organization [facility] Address [address] [place] [address] Care Team Providers Care Talent Advisor Name Role Phone Aram Modi MD Primary Care Provider Unakuldeep Gilmore Pcp Primary Care Provider [facility]ail[facility] Ravinder Salvador MD Unavailable [phone] Fabien Burgos NP Unavailable [phone] Aram Modi MD Primary Care Provider Unava Angelica Russell MD Unavailable [phone] Encounter Details Date Type Department Care Team Description 05/23/2017 Telephone Medicine/Pediatrics - [address] [address] Aram Modi MD Social History Tobacco Use [...] - 100 mg/dL 08/06/2017 6:01 PM T [facility] Comment: Reference range applicable to fasting specimens only Based on recommendations from the ADA and AACE, the fasting glucose reference range has been changed to 70-100 mg/dL. ??This change is effective October 02, 2009 BUN 38(H) 5 - 25 mg/dL 08/06/2017 6:01 PM [facility] CREAT 1.6(H) 0.7 - 1.5 mg/dL 08/06/2017 6:01 PM [facility] GFR 45(L) >60 08/06/2017 6:01 PM [facility] Comment: If patient is -Senegalese, multiply result by 1.21 Chronic Kidney Disease: < 60 ml/min/1.73 square meters Kidney Failure: < 15 ml/min/1.73 square meters Sodium 139 133 - 145 mEq/L 08/06/2017 6:01 PM T [facility] Potassium 4.9 3.5 - 5.5 mEq/L 08/06/2017 6:01 PM [facility] Chloride 101 96 - 108 mEq/L 08/06/2017 6:01 PM [facility] CO2 26.8 21.0 - 32.0 mEq/L 08/06/2017 6:01 PM [facility] CALCIUM 9.7 8.5 - 10.5 mg/dL 08/06/2017 6:01 PM [facility] 08/06/2017 1:11 PM EDT 08/06/2017 1:11 PM EDT Aram Modi MD LAB [facility] [address] [facility] documented in this encounter Visit Diagnoses Diagnosis Essential hypertension- Primary Unspecified essential hypertension documented in this encounter Care Teams Talent Advisor Relationship Specialty Start Date End Date Aram Modi MD PCP - General Internal Medicine 04/22/17 09/10/20 [facility], Pcp PCP - General Internal Medicine 09/11/20 02/17/23 Aarm Modi MD PCP - General Internal Medicine 02/18/23 Ravinder Jose MD Specialist Cardiology 02/11/23 Fabien Burgos NP Specialist Cardiology 02/11/23 Angelica Price MD [address] [place] [address] Specialist Cardiology 03/11/23 documented as of this encounter
--- OUTSIDE RECORDS SUMMARY | 2024-07-15 15:17 | XMS_ITS | Encounter Summary ---
Author Organization [facility] Address [address] [place] [address] Care Team Providers Care Fly Finisher Name Role Phone Aram Modi MD Primary Care Provider Yanet Gilmore Pcp Primary Care Provider Unavailmulticare health Ravinder Salvador MD Unavailable [phone] Fabien Burgos NP Unavailable [phone] Aram oMdi MD Primary Care Provider Unava Angelica Russell MD Unavailable [phone] Encounter Details Date Type Department Care Team Description 07/22/2017 Telephone Medicine/Pediatrics - [address] [id number] Aram Modi MD Social History Tobacco Use [...] encounter Miscellaneous Notes * Telephone Encounter - Simon Garcia MD - 07/27/2017 9:47 PM EDT Usually PMR patients don't tolerate every other day prednisone regimens, but If he is feeling OK noneed to change things for now Dr. Garcia * Telephone Encounter - Aram Modi MD - 07/22/2017 1:17 PM EST Spoke with Mr. Velez, he notes he has been feeling wonderful other than bad tinnitus, he will be having shot in his knee tomorrow, is getting back to exercising. He states he has gone up on steroid dose 2.5mg two tabs for a total of 5mg (only every other day), which he started doing last . I informed him that I had messaged with Dr. Garcia who had recommended could consider increasing prednisone dose, though as he is already increasing it every other day and feeling much better, I would not make changes. Dr. Garcia, any further suggestions? Thanks again for your insight. documented in this encounter Plan of Treatment Not on file documented as of this encounter Visit Diagnoses Not on filedocumented in this encounter Care Teams Fly Finisher Relationship Specialty Start Date End Date Aram Modi MD PCP - General Internal Medicine 04/22/17 09/10/20 [facility] PCP - General Internal Medicine 09/11/20 02/17/23 Aram Modi MD PCP - General Internal Medicine 02/18/23 Ravinder Jose MD Specialist Cardiology 02/11/23 Fabien Burgos NP Specialist Cardiology 02/11/23 Angelica Price MD [address] [place] [address] Specialist Cardiology 03/11/23 documented as of this encounter
--- OUTSIDE RECORDS SUMMARY | 2024-07-15 15:17 | XMS_ITS | Encounter Summary ---
Author Organization [facility] Address [address] [place] [address] Care Team Providers Care Skylights Assembler Name Role Phone Aram Modi MD Primary Care Provider Unakuldeep Gilmore Pcp Primary Care Provider [facility] Ravinder Salvador MD Unavailable [phone] Fabien Burgos NP Unavailable [phone] Aram Modi MD Primary Care Provider Unava Angelica Russell MD Unavailable [phone] Encounter Details Date Type Department Care Team Description 12/22/2017 Pt. Non Urgent Medic al Question Medicine/Pediatrics - [address] [address] Aram Modi MD Social History Tobacco Use [...] Subject: RX Dear Dr. Modi or attending paraprofessional education assistant Received second call from [facility] with regard to unanswered prescriptiont request from your office. I am in need of these prescriptions olivas urgent. I was contacted by your office last week by someone who made a new appointment and was advised that the scripts would not be held up. Because I need these scripts now [facility] is requesting a phone call to them to expedite these orders. Please respond that this will be taken care of. Thank you, Cy Velez documented in this encounter Plan of Treatment Not on file documented as of this encounter Visit Diagnoses Not on filedocumented in this encounter Care Teams Skylights Assembler Relationship Specialty Start Date End Date Aram Modi MD PCP - General Internal Medicine 04/22/17 09/10/20 [facility] Pcp PCP - General Internal Medicine 09/11/20 02/17/23 Aram Modi MD PCP - General Internal Medicine 02/18/23 Ravinder Jose MD Specialist Cardiology 02/11/23 Fabien Burgos NP Specialist Cardiology 02/11/23 Angelica Price MD [address] [place] [address] Specialist Cardiology 03/11/23 documented as of this encounter
--- OUTSIDE RECORDS SUMMARY | 2024-07-15 15:17 | XMS_ITS | Encounter Summary ---
Author Organization [facility] Address [address] [place] [address] Care Team Providers Care Machine Rope Maker Name Role Phone Ravinder Jose MD Unavailable [phone] Fabien Burgos NP Unavailable [phone] Aram Modi MD Primary Care Provider Angelica Cardozo MD Unavailable [phone] Encounter Details Date Type Department Care Team Description 03/06/2023 SCAN Medical Records [address] [place] [address] Abstract, Provider Social History Tobacco Use Types [...] on filedocumented in this encounter Care Teams Machine Rope Maker Relationship Specialty Start Date End Date Aram Modi MD PCP - General Internal Medicine 02/18/23 Ravinder Jose MD Specialist Cardiology 02/11/23 Fabien Burgos NP Specialist Cardiology 02/11/23 Angelica Price MD [address] [place] [address] Specialist Cardiology 03/11/23 documented as of this encounter
--- OUTSIDE RECORDS SUMMARY | 2024-07-15 15:17 | XMS_ITS | Clinical Summary ---
Author Organization [address] [place] [address] [place] [phone] Phone Care Team Providers Care Round Corner Cutter Operator Name Role Phone Aram Modi MD Primary Care Provider [phone] Allergies Active Allergy Reactions Criticality Noted Date Comments Morphine 08/06/2005 CONVULSIONS Medications allopurinoL (ZYLOPRIM) 100 mg tablet Take 1.5 tablets (150 mg total) by mouth 1 (one) time each day. 12/03/19 17 Active aspirin 81 mg EC tablet Take 1 tablet (81 mg total) by mouth 1 (one) time each day. 04/29/20 06 Active atorvastatin (LIPITOR) 40 mg tablet Take 1 tablet (40 mg total) by mouth 1 (one) time each day. 03/06/20 23 Active eplerenone (INSPRA) 50 mg tablet Take 1 tablet (50 mg total) by mouth 1 (one) time each day. 12/19/19 17 Active finasteride (PROSCAR) 5 mg tablet Take 1 tablet (5 mg total) by mouth 1 (one) time each day. Active levothyroxine (SYNTHROID, LEVOTHROID) 75 mcg tablet Take 1 tablet (75 mcg total) by mouth 1 (one) time each day. 12/20/19 17 Active omeprazole (PriLOSEC) [address] capsule Take 1 capsule (20 mg total) by mouth 1 (one) time each day. 02/13/20 16 Active predniSONE (DELTASONE) 1 mg tablet Take by mouth. 3 tab twice a day for 3 days, then 2 tab twice a day for 3 days, then one tab twice a day 05/08/20 21 Active tamsulosin (FLOMAX) 0.4 mg 24 hr capsule Take 1 capsule (0.4 mg total) by mouth 1 (one) time each day. Take 30 mins after same meal every day. - 12/03/19 17 Active hydroCHLOROthiazid e (HYDRODIURIL) 25 mg tablet Take 1 tablet (25 mg total) by mouth 1 (one) time each day. 90 tablet 1 05/06/20 24 Active levothyroxine (SYNTHROID, LEVOTHROID) 88 mcg tablet Take by mouth 1 (one) time each day before breakfast. Active sacubitriL-valsart an (Entresto) 49-51 mg per tabletIndications: Other cardiomyopathy (CMS/HCC) Take 1 tablet by mouth 2 (two) times a day. 180 tablet 3 05/17/20 24 Active carvediloL (COREG) 6.25 mg tablet TAKE 1 TABLET TWICE DAILY WITH MEALS 180 tablet 1 06/28/19 25 Active carvediloL (COREG) 6.25 mg tablet Take 1 tablet (6.25 mg total) by mouth 2 (two) times a day with meals. 02/04/20 24 025 Discontinued Active Problems Problem Noted Date Diagnosed Date [...] 12 lead Coronary artery disease invo lving [place] coronary artery of [place] heart without angina pectoris 02/18/2023 Cardiomyopathy 02/17/2023 [...] 08/26/2014 Obstructive sleep apnea 03/29/2014 Overview (03/04/2024): [facility] Home Polysomnogram: Date 02/13/2017; AHI [...] Encounters Date Type Department Care Team Description 06/16/2024 Telephone [facility] [address] [facility] [address] [place] [address] Aram Modi MD Medical Records 05/25/2024 7:30 PM EST Ancillary Procedure [facility] [address] [place] [address] 05/20/2024 Telephone [facility] [address] [facility] [address] [place] [address] Aram Modi MD Medical Records 05/18/2024 7:30 AM EST Ancillary Procedure [facility] [address] [place] [phone] Suspected DVT (deep vein thrombosis); Chest pain on breathing 05/17/2024 1:30 PM EST Consult [facility] [address] [place] [phone] Brooklynn Church MD Other cardiomyopathy (CMS/HCC) (Primary Dx); Primary hypertension; Pure hypercholesterolemia; Stage 3 chronic kidney disease, unspecified whether stage 3a or 3b CKD (CMS/HCC); Polymyalgia rheumatica (CMS/HCC); Second degree heart block; Suspected DVT (deep vein thrombosis); Chest pain on breathing 05/13/2024 Telephone [facility] [address] [facility] [address] [place] [address] Brooklynn Church MD 05/06/2024 Telephone [facility] [address] [place] [address] Brooklynn Church MD medication 04/28/2024 Telephone [facility] [address] [place] [address] Aram Modi MD Medical Records 04/20/2024 8:30 AM EST Ancillary Procedure [facility] [address] [place] [address] Encounter for adjustment or management of cardiac device 04/20/2024 Telephone [facility] [address] [place] [address] Ricardo Gardner RN from Last 3 Months Immunizations Name Administration Dates Next Due Influenza Quadravalent, 0.5m l (Fluad) 65yo and older 04/15/2022 Influenza trivalent, 0.5mL ( Fluad) 65yo and older 02/14/2020,02/17/2017 Influenza trivalent, 0.5mL, preservative free (Fluarix; FluLaval; Fluzone) ages 6mo and older (Afluria) 3 years and older 02/27/2015,05/02/2014,04/01/2012,02/07,03/22/2008,03/22/2005 Influenza, Unspecified 03/16/2019,02/26/2016 PPD Test 06/23/2000 [place] SARS-CoV-2 COVID-19, mRNA, LNP-S, preservative free 07/23/2020,06/25/2020 Pneumococcal conjugate 13 va lent (Prevnar 13, PCV13) 2mo and older 11/02/2014 Pneumococcal polysaccharide 23 valent (Pneumovax 23) 2yo and older 09/16/2013,01/15/2002 Td Tetanus diptheria (Tdvax) 7yo and older 11/29/2008 Tdap Tetanus diptheria acell ular pertussis (Boostrix; Adacel) 7yo and older 05/17/2016 Zoster Live 12/24/2013 Surgical History Surgery Date Site/Laterality Comments OTHER SURGICAL HISTORY 2004 PROCEDURE: [place] RMVL LUNG OTHER THAN PNEUMONECTOMY 1 LOBE LOBECT; COMMENT: LLL for Ca OTHER SURGICAL HISTORY 05/22/12 PROCEDURE: NUCLEAR STRESS TEST REPORT; COMMENT: Nerissa Villanueva, Neg OTHER SURGICAL HISTORY 01/30 PROCEDURE: OUTSIDE NUCLEAR STRESS TEST; COMMENT: neg OTHER SURGICAL HISTORY 01/30 PROCEDURE: CTA CHEST; W/WO CONTRAST MAT; COMMENT: neg COLONOSCOPY 06/29/04 PROCEDURE: HISTORICAL COLONOSCOPY; COMMENT: Nataly perry COLONOSCOPY 03/01 [facility] PROCEDURE: HISTORICAL COLONOSCOPY; COMMENT: devika Shipley; otherwise normal to terminal ileum with normal colonic bxys. UPPER GASTROINTESTINAL ENDOSCOPY 03/01 [facility] PROCEDURE: [place] UPPER GI ENDOSCOPY PERFORMED; COMMENT: NOrmal, with normal duodenal biopsies UPPER GASTROINTESTINAL ENDOSCOPY 12/26/2010 PROCEDURE: [place] UPPER GI ENDOSCOPY PERFORMED; COMMENT: Minimal erosive gastritis; [facility]; bx negative for H. pylori. KNEE SURGERY 2016 PROCEDURE: HISTORICAL KNEE SURGERY Medical History Medical History Date Comments BPH (benign prostatic hyperplasia) 09/15/2017 DX:BPH (benign prostatic hyperplasia) Chronic pruritus 10/23/2015 DX:Chronic prur itus Chronic rhinitis 03/22/2008 DX:Chronic rhin itis CKD (chronic kidney disease) stage 3, GFR 30-59 ml/min ([facility]/HCC) 10/28/2013 DX:CKD (chronic kidney dise ase) stage 3, GFR 30-59 ml/min ([facility]); COMMENT: GFR 53 on 08/18/12. 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 DX:Cysti c mass of pancreas Elevated PSA 11/29/2008 DX:Elevated PSA; COMMENT: [place]; Bx; neg 06/27 Functional diarrhea 09/12/2016 DX:Functiona l diarrhea Gout 08/18/2012 DX:Gout History of lung cancer 12/08/2015 DX:Histor y of lung cancer; COMMENT: NSC, s/p lobectomy,[facility]; [facility] Gu[facility]; 07/21;left lower lobe Hyperlipidemia 08/06/2005 DX:Hyperlipidemi a Hypertension 11/28/2011 DX:Hypertension; COMMENT: Overview: Hypertensive disorder Hypothyroid 03/28/2008 DX:Hypothyroid IBS (irritable bowel syndrome) 04/14/2018 D X:IBS (irritable bowel syndrome) Internal hemorrhoids with complication 05/22/2015 DX:Internal hemorrhoids with complication Irritable bowel syndrome (IBS) 04/14/2018 D X:Irritable bowel syndrome (IBS) Obstructive sleep apnea 03/29/2014 DX:Obstr uctive sleep apnea; COMMENT: [facility] Home Polysomnogram: Date 02/13/2017; AHI [...] Description 10/28/2024 9:10 AM EDT Office Visit [facility] [address] [place] [address] Fabien Burgos NP [address] [place] [address] [address] [place] [address] 04/20/2025 8:00 AM EST Ancillary Procedure [facility] [address] [facility] [address] [place] [address] Health Maintenance Due Date Last Done Comments [...] patient's age to complete this topic Meningococcal B Vacine Aged Out No lo nger eligible based on patient's age to complete this topic RSV Immunization Patients Under 20 months Aged Out No longer eligible based on patient's age to complete this topic Varicella Vaccines Aged Out No longer eligible based on patient's age to complete this topic Medical Devices Implanted Type Area Fighter Pilot Device Identifier Shelf Expiration Date Model / Serial / Lot Bsci-Crm [id number] Implanted:02/16 (Quantity not on file) Cardiac TRIMMER MACHINE OPERATOR-P [employer] RHYTHM MGMT [id number] / [id number] / Procedures Procedure Name Priority Date/Time Associated [...] 7:29 PM EST) Date Time Interrogation Session [id number] CV DEVICE CHECK Type Interrogation Session Remote Scheduled CV DEVICE CHECK Implantable Pulse Generator Fighter Pilot BSX CV DEVICE CHECK Implantable Pulse Generator Type TRIMMER MACHINE OPERATOR-P CV DEVICE CHECK Implantable Pulse Generator Model U128 CV DEVICE CHECK Implantable Pulse Generator Serial Number [id number] CV DEVICE CHECK Implantable Pulse Generator Implant Date 20230305 CV DEVICE CHECK Battery Remaining Percentage 100.00 CV DEVICE CHECK Battery Remaining Longevity 114.0 CV DEVICE CHECK Battery Status Beginning of Service CV DEVICE CHECK Ayan Statistic RA Percent Paced 41.00 CV DEVICE CHECK Ayan Statistic RV Percent Paced 100.00 CV DEVICE CHECK TRIMMER MACHINE OPERATOR Statistic LV Percent Paced 100.00 CV DEVICE CHECK Atrial Tachy Statistic AT/AF [place] Percent 0.00 CV DEVICE CHECK Lead Channel [...] CV DEVICE CHECK Ventricular chambers paced during TRIMMER MACHINE OPERATOR pacing. BiV CV DEVICE CHECK Ayan Setting Lower Rate Limit 60 CV DEVICE CHECK Ayan Setting AT Mode Switch Rate 170 CV DEVICE CHECK Ayan Setting Maximum Tracking Rate 130 CV DEVICE CHECK Ayan Setting Maximum Sensor Rate 130 CV DEVICE CHECK Ayan Setting PAV Delay 150 CV DEVICE CHECK Ayan Setting SUZY Delay 100 CV DEVICE CHECK TRIMMER MACHINE OPERATOR LV-RV Delay 0 CV D EVICE [...] us Darleen FISCHER CV IMPLANTABLE CARDIAC DEVICE [place] OCEDURES Final Result * Vascular US duplex [...] the left leg. The vessels showed compressibility. Safety Deposit Supervisor Details A call scale, color and [...] GEMUSE QTc 466 ms GEMUSE P Wave [place] 25 degrees GEMUSE R [place] 0 degrees GEMUSE T [place] 82 degrees GEMUSE ECG Interpretation AV dual-paced rhythm Abnormal ECG When compared with ECG of 27-AUG-2004 14:55, Electronic ventricular pacemaker has replaced Sinus rhythm Confirmed by BROOKLYNN CHURCH ([id number]) on 05/17/2024 2:55:34 PM GEMUSE 05/17/2024 1:22 PM EST 05/17/2024 2:55 PM EST us Brooklynn Church MD ECG ORDERABLES Final Result GEMUSE * CARDIAC DEVICE CHECK- IN CLINIC- [facility] (04/20/2024 8:31 AM EST) Date Time Interrogation Session [id number] CV DEVICE CHECK Implantable Pulse Generator Fighter Pilot BSX CV DEVICE CHECK Implantable Pulse Generator Type TRIMMER MACHINE OPERATOR-P CV DEVICE CHECK Implantable Pulse Generator Model U128 CV DEVICE CHECK Implantable Pulse Generator Serial Number [id number] CV DEVICE CHECK Implantable Pulse Generator Implant [...] CV DEVICE CHECK Ventricular chambers paced during TRIMMER MACHINE OPERATOR pacing. BiV CV DEVICE CHECK Ayan [...] Annual BMP Blood Test (12/02/2022) Pathologist [facility] Annual BMP Blood Test abstracted Historical Provider HEALTH MAINTENANCE Final Result * (ABNORMAL) Lipid panel (09/28/2019) Pathologist [facility] LDL/HDL Ratio 4 0 - 4 Triglycerides 290(A) 0 - 150 mg/dL Cholesterol 192 0 - 200 mg/dL HDL 51 >=40 mg/dL LDL Cholesterol 83 0 - 100 mg/dL Blood Venous blood specimen / Unknown Historical Provider LAB BLOOD ORDERABLES Frida l Result from Last 3 Months or Most Recently Relevant to Health Maintenance Insurance MEDICARE [facility] Care Teams Round Corner Cutter Operator Relationship Specialty Start Date End Date Aram Modi MD [address] [id number] PCP - General 04/22/17
--- OUTSIDE RECORDS SUMMARY | 2024-07-15 15:17 | XMS_ITS | Encounter Summary ---
Author Organization [facility] Address [address] [place] [address] Care Team Providers Care Jewelry Repairer Name Role Phone Gael Coffman MD Primary Care Provider Unavail able Aram Modi MD Primary Care Provider Yanet Gilmore Pcp Primary Care Provider UnavailRavinder Wallace MD Unavailable [phone] Fabien Burgos NP Unavailable [phone] Aram Modi MD Primary Care Provider Angelica Cardozo MD Unavailable [phone] Reason for Visit * Reason Onset Date Comments other 08/26/2014 Encounter Details Date Type Department Care Team Description 08/26/2014 Pt. Non Urgent Medical Question Adult Medicine - [place] [address] [place] [address] Gael Coffman MD Social History Tobacco Use [...] Tried returning call. Instructions were to call [phone] Dr. Coffman's office. Because no name was given they could not connect me. Feel the call was in reference to B 12 injections documented in this encounter Plan of Treatment Not on file documented as of this encounter Visit Diagnoses Not on filedocumented in this encounter Care Teams Jewelry Repairer Relationship Specialty Start Date End Date Gael Coffman MD PCP - General 06/10/01 04/21/17 Aram Modi MD PCP - General Internal Medicine 04/22/17 09/10/20 [facility] Pcp PCP - General Internal Medicine 09/11/20 02/17/23 Aram Modi MD PCP - General Internal Medicine 02/18/23 Ravinder Jose MD Specialist Cardiology 02/11/23 Fabien Burgos NP Specialist Cardiology 02/11/23 Angelica Price MD [address] [place] [address] Specialist Cardiology 03/11/23 documented as of this encounter
--- OUTSIDE RECORDS SUMMARY | 2024-07-15 15:17 | XMS_ITS | Encounter Summary ---
Author Organization [facility] Address [address] [place] [address] Care Team Providers Care Handle Lathe Operator Name Role Phone Ravinder Jose MD Unavailable Fabien Burgos NP Unavailable [phone] Aram Modi MD Primary Care Provider Angelica Cardozo MD Unavailable [phone] Encounter Details Date Type Department Care Team Description 03/22/2023 Telephone Cardio PVC POC [address] [facility] [address] [place] [address] Danny Hammond MD [address] [facility] [address] [place] [address] Social History Tobacco Use Types Packs/Day Years [...] on filedocumented in this encounter Care Teams Handle Lathe Operator Relationship Specialty Start Date End Date Aram Modi MD PCP - General Internal Medicine 02/18/23 Ravinder Jose MD Specialist Cardiology 02/11/23 Fabien Burgos NP Specialist Cardiology 02/11/23 Angelica Price MD [address] [place] [address] Specialist Cardiology 03/11/23 documented as of this encounter
--- OUTSIDE RECORDS SUMMARY | 2024-07-15 15:17 | XMS_ITS | Encounter Summary ---
Author Organization [facility] Address [address] [place] [address] Care Team Providers Care Motor Overhauler Name Role Phone Aram Modi MD Primary Care Provider Yanet Gilmore, Pcp Primary Care Provider Unavailformerly [facility] Ravinder Jose MD Unavailable [phone] Fabien Burgos NP Unavailable [phone] Aram Modi MD Primary Care Provider Angelica Cardozo MD Unavailable [phone] Encounter Details Date Type Department Care Team Description 12/12/2017 Supervisor Sunglasses Report Medical Records [address] [place] [address] Abstract, Provider Social History Tobacco Use Types [...] on filedocumented in this encounter Care Teams Motor Overhauler Relationship Specialty Start Date End Date Aram Modi MD PCP - General Internal Medicine 04/22/17 09/10/20 [place], Pcp PCP - General Internal Medicine 09/11/20 02/17/23 Aram Modi MD PCP - General Internal Medicine 02/18/23 Ravinder Jose MD Specialist Cardiology 02/11/23 Fabien Burgos NP Specialist Cardiology 02/11/23 Angelica Price MD [address] [address] Specialist Cardiology 03/11/23 documented as of this encounter
--- OUTSIDE RECORDS SUMMARY | 2024-07-15 15:17 | XMS_ITS | Encounter Summary ---
Author Organization [facility] Address [address] [place] [address] Care Team Providers Care Rug Setter Velvet Name Role Phone Ravinder Jose MD Unavailable [phone] Fabien Burgos NP Unavailable [phone] Aram Modi MD Primary Care Provider Angelica Cardozo MD Unavailable [phone] Encounter Details Date Type Department Care Team Description 02/19/2023 SCAN Medical Records [address] [place] [id number] Abstract, Provider Social History Tobacco Use Types [...] on filedocumented in this encounter Care Teams Rug Setter Velvet Relationship Specialty Start Date End Date Aram Modi MD PCP - General Internal Medicine 02/18/23 Ravinder Jose MD Specialist Cardiology 02/11/23 Fabien Burgos NP Specialist Cardiology 02/11/23 Angelica Price MD [address] [place] [address] Specialist Cardiology 03/11/23 documented as of this encounter
--- OUTSIDE RECORDS SUMMARY | 2024-07-15 15:17 | XMS_ITS | Encounter Summary ---
Author Organization [facility] Address [address] [place] [address] Care Team Providers Care Laborer Orchard Name Role Phone Ravinder Jose MD Unavailable [phone] Fabien Burgos NP Unavailable [phone] Aram Modi MD Primary Care Provider Angelica Cardozo MD Unavailable [phone] Encounter Details Date Type Department Care Team Description 03/21/2023 Refill Medicine/Pediatrics - [address] [address] Sal Finney PA-C Social History Tobacco Use Types Packs/Day [...] as of this encounter Visit Diagnoses Diagnosis Benign prostatic hyperplasia, unspecified whether lower urinary tract symptoms present documented in this encounter Care Teams Laborer Orchard Relationship Specialty Start Date End Date Aram Modi MD PCP - General Internal Medicine 02/18/23 Ravinder Jose MD Specialist Cardiology 02/11/23 Fabien Burgos NP Specialist Cardiology 02/11/23 Angelica Price MD [address] [facility] [address] [place] [address] Specialist Cardiology 03/11/23 documented as of this encounter
--- OUTSIDE RECORDS SUMMARY | 2024-07-15 15:17 | XMS_ITS | Encounter Summary ---
Author Organization [facility] Address [address] [place] [address] Care Team Providers Care Patient Access Specialist Name Role Phone Geal Coffman MD Primary Care Provider Unavail able Aram Modi MD Primary Care Provider Yanet Gilmore Pcp Primary Care Provider UnavailRavinder Wallace MD Unavailable [phone] Fabien Burgos NP Unavailable [phone] Aram Modi MD Primary Care Provider Angelica Cardozo MD Unavailable [phone] Reason for Visit * Reason Onset Date Comments Mychart Rx Refill 09/18/2014 Encounter Details Date Type Department Care Team Description 09/18/2014 Pt. Non Urgent Medical Question Adult Medicine - [address] [address] Gael Coffman MD Social History Tobacco Use [...] MG 90 pcs. /3 months supply to for; to (do) [address] Felder. Thank You documented in this encounter Plan of Treatment Not on file documented as of this encounter Visit Diagnoses Not on filedocumented in this encounter Care Teams Patient Access Specialist Relationship Specialty Start Date End Date Gael Coffman MD PCP - General 06/10/01 04/21/17 Aram Modi MD PCP - General Internal Medicine 04/22/17 09/10/20 [facility] PCP - General Internal Medicine 09/11/20 02/17/23 Aram Modi MD PCP - General Internal Medicine 02/18/23 Ravinder Jose MD Specialist Cardiology 02/11/23 Fabien Burgos NP Specialist Cardiology 02/11/23 Angelica Price MD 300 [facility] [address] [place] [address] Specialist Cardiology 03/11/23 documented as of this encounter
--- OUTSIDE RECORDS SUMMARY | 2024-07-15 15:17 | XMS_ITS | Encounter Summary ---
Author Organization [facility] Address [address] [place] [address] Care Team Providers Care Rotary Engine Assembler Name Role Phone Ravinder Jose MD Unavailable [phone] Fabien Burgos NP Unavailable [phone] Aram Modi MD Primary Care Provider Angelica Cardozo MD Unavailable [phone] Encounter Details Date Type Department Care Team Description 03/25/2023 Orders Only Cardio PVC POC 154 [address] [facility] [address] [place] [address] Default, Provider Social History Tobacco Use Types [...] on filedocumented in this encounter Care Teams Rotary Engine Assembler Relationship Specialty Start Date End Date Aram Modi MD PCP - General Internal Medicine 10/3/23 Ravinder Jose MD Specialist Cardiology 02/11/23 Fabien Burgos NP Specialist Cardiology 02/11/23 Angelica Price MD [address] [address] Specialist Cardiology 03/11/23 documented as of this encounter
--- OUTSIDE RECORDS SUMMARY | 2024-07-15 15:17 | XMS_ITS | Encounter Summary ---
Author Organization [facility] Address [address] [place] [address] Care Team Providers Care Photo Graphics Librarian Name Role Phone Ravinder Jose MD Unavailable [phone] Fabien Burgos NP Unavailable [phone] Aram Modi MD Primary Care Provider Angelica Cardozo MD Unavailable [phone] Encounter Details Date Type Department Care Team Description 02/24/2023 Pattern Perforating Machine Operator Report Medical Records [address] [place] [id number] Abstract, Provider Social History Tobacco Use Types [...] on filedocumented in this encounter Care Teams Photo Graphics Librarian Relationship Specialty Start Date End Date Aram Modi MD PCP - General Internal Medicine 02/18/23 Ravinder Jose MD Specialist Cardiology 02/11/23 Fabien Burgos NP Specialist Cardiology 02/11/23 Angelica Price MD [address] [address] Specialist Cardiology 03/11/23 documented as of this encounter
--- OUTSIDE RECORDS SUMMARY | 2024-07-15 15:17 | XMS_ITS | Encounter Summary ---
Author Organization [facility] Address [address] [place] [address] Care Team Providers Care Mold Making Supervisor Name Role Phone Gael Cofmfan MD Primary Care Provider Unavail able Aram Modi MD Primary Care Provider Yanet Gilmore Pcp Primary Care Provider UnavailRavinder Wallace MD Unavailable [phone] Fabien Burgos NP Unavailable [phone] Aram Modi MD Primary Care Provider Angelica Cardozo MD Unavailable [phone] Reason for Visit * Reason Onset Date Comments Mychart Rx Refill 08/01/2014 Encounter Details Date Type Department Care Team Description 08/01/2014 Pt. Non Urgent Medical Question Adult Medicine - [address] [address] Gael Coffman MD Social History Tobacco Use [...] with note from Dr. Ghazala Fisher of [facility]. Further, a second letter was faxed to your Dept. as Dr. Fisher recommended monthly B12 shots documented in this encounter Plan of Treatment Not on file documented as of this encounter Visit Diagnoses Not on filedocumented in this encounter Care Teams Mold Making Supervisor Relationship Specialty Start Date End Date Gael Coffman MD PCP - General 06/10/01 04/21/17 Aram Modi MD PCP - General Internal Medicine 04/22/17 09/10/20 [facility] PCP - General Internal Medicine 09/11/20 02/17/23 Arma Modi MD PCP - General Internal Medicine 02/18/23 Ravinder Jose MD Specialist Cardiology 02/11/23 Fabien Burgos NP Specialist Cardiology 02/11/23 Angelica Price MD [address] [address] Specialist Cardiology 03/11/23 documented as of this encounter
--- OUTSIDE RECORDS SUMMARY | 2024-07-15 15:17 | XMS_ITS | Encounter Summary ---
Author Organization [facility] Address [address] [place] [address] Care Team Providers Care Fee Clerk Name Role Phone Ravinder Jose MD Unavailable [phone] Fabien Burgos NP Unavailable Aram Modi MD Primary Care Provider Angelica Cardozo MD Unavailable [phone] Encounter Details Date Type Department Care Team Description 03/18/2023 SCAN Medical Records [address] [place] [address] Abstract, Provider Social History Tobacco Use Types [...] on filedocumented in this encounter Care Teams Fee Clerk Relationship Specialty Start Date End Date Aram Modi MD PCP - General Internal Medicine 02/18/23 Ravinder Jose MD Specialist Cardiology 02/11/23 Fabien Burgos NP Specialist Cardiology 02/11/23 Angelica Price MD [address] [address] Specialist Cardiology 03/11/23 documented as of this encounter
--- OUTSIDE RECORDS SUMMARY | 2024-07-15 15:17 | XMS_ITS | Encounter Summary ---
Author Organization [facility] Address [address] [place] [address] Care Team Providers Care Delineator Name Role Phone Ravinder Jose MD Unavailable [phone] Fabien Burgos NP Unavailable [phone] Aram Modi MD Primary Care Provider Angelica Cardozo MD Unavailable [phone] Encounter Details Date Type Department Care Team Description 02/28/2023 Hospital Medical Records [address] [place] [address] Social History Tobacco Use Types Packs/Day Years [...] on filedocumented in this encounter Care Teams Delineator Relationship Specialty Start Date End Date Aram Modi MD PCP - General Internal Medicine 02/18/23 Ravinder Jose MD Specialist Cardiology 02/11/23 Fabien Burgos NP Specialist Cardiology 02/11/23 Angelica Price MD [address] [place] [address] Specialist Cardiology 03/11/23 documented as of this encounter
--- OUTSIDE RECORDS SUMMARY | 2024-07-15 15:17 | XMS_ITS | Encounter Summary ---
Author Organization [facility] Address [address] [place] [address] Care Team Providers Care Plumbing Hardware Assembler Name Role Phone Ravinder Jose MD Unavailable [phone] Fabien Burgos NP Unavailable [phone] Aram Modi MD Primary Care Provider [facility] Angelica Price MD Unavailable [phone] Encounter Details Date Type Department Care Team Description 07/21/2023 Cuff Turner Machine Operator Report Medical Records [address] [place] [address] Aram Modi MD Social History Tobacco Use [...] filedocumented in this encounter Care Teams Plumbing Hardware Assembler Relationship Specialty Start Date End Date Aram Modi MD PCP - General Internal Medicine 02/18/23 Ravinder Jose MD Specialist Cardiology 02/11/23 Fabien Burgos NP Specialist Cardiology 02/11/23 Angelica Price MD [address] [facility] [address] [place] [address] Specialist Cardiology 03/11/23 documented as of this encounter
--- OUTSIDE RECORDS SUMMARY | 2024-07-15 15:17 | XMS_ITS | Encounter Summary ---
Author Organization [facility] Address [address] [place] [address] Care Team Providers Care Weather Analyst Name Role Phone Ravinder Jose MD Unavailable [phone] Fabien Burgos NP Unavailable [phone] Aram Modi MD Primary Care Provider Angelica Cardozo MD Unavailable [phone] Encounter Details Date Type Department Care Team Description 09/19/2023 Pt. Non Urgent Medical Question Cardio PVC [facility] [address] [facility] [address] [place] [id number] Ravinder Jose MD [address] [place] [address] [id number] Social History Tobacco Use Types Packs/Day Years [...] on filedocumented in this encounter Care Teams Weather Analyst Relationship Specialty Start Date End Date Aram Modi MD PCP - General Internal Medicine 02/18/23 Ravinder Jose MD Specialist Cardiology 02/11/23 Fabien Burgos NP Specialist Cardiology 02/11/23 Angelica Price MD [address] [place] [address] Specialist Cardiology 03/11/23 documented as of this encounter
--- OUTSIDE RECORDS SUMMARY | 2024-07-15 15:18 | XMS_ITS | Encounter Summary ---
Author Organization [facility] Address [address] [place] [address] Care Team Providers Care Train Reservation Clerk Name Role Phone Gael Coffman MD Primary Care Provider Unavail able Aram Modi MD Primary Care Provider Luis E Parker Primary Care Provider UnavailRavinder Wallace MD Unavailable [phone] Fabien Burgos NP Unavailable [phone] Aram Modi MD Primary Care Provider Angelica Cardozo MD Unavailable [phone] Encounter Details Date Type Department Care Team Description 11/02/2014 Business Doc Medical Records [address] [place] [address] Abstract, Provider Social History Tobacco Use Types [...] on filedocumented in this encounter Care Teams Train Reservation Clerk Relationship Specialty Start Date End Date Gael Coffman MD PCP - General 06/10/01 04/21/17 Aram Modi MD PCP - General Internal Medicine 04/22/17 09/10/20 [facility], Pcp PCP - General Internal Medicine 09/11/20 02/17/23 Aram Modi MD PCP - General Internal Medicine 02/18/23 Ravinder Jose MD Specialist Cardiology 02/11/23 Fabien Burgos NP Specialist Cardiology 02/11/23 Angelica Price MD [address] [place] [address] Specialist Cardiology 03/11/23 documented as of this encounter
--- OUTSIDE RECORDS SUMMARY | 2024-07-15 15:18 | XMS_ITS | Encounter Summary ---
Author Organization [facility] Address [address] [place] [address] Care Team Providers Care Residential Door Installer Name Role Phone Aram Modi MD Primary Care Provider Yanet Gilmore Pcp Primary [facility] Ravinder Salvador MD Unavailable [phone] Fabien Burgos NP Unavailable [phone] Aram Modi MD Primary Care Provider Unava Angelica [place] MD Unavailable [phone] Encounter Details Date Type Department Care Team Description 03/18/2018 Pt. Non Urgent Medic al Question Medicine/Pediatrics - [address] [address] Aram Modi MD Social History Tobacco Use [...] on filedocumented in this encounter Care Teams Residential Door Installer Relationship Specialty Start Date End Date Aram Modi MD PCP - General Internal Medicine 04/22/17 09/10/20 [facility] Pcp PCP - General Internal Medicine 09/11/20 02/17/23 Aram Modi MD PCP - General Internal Medicine 02/18/23 Ravinder Jose MD Specialist Cardiology 02/11/23 Fabien Burgos NP Specialist Cardiology 02/11/23 Angelica Price MD [address] [place] [address] Specialist Cardiology 03/11/23 documented as of this encounter
--- OUTSIDE RECORDS SUMMARY | 2024-07-15 15:18 | XMS_ITS | Encounter Summary ---
Author Organization [facility] Address [address] [place] [address] Care Team Providers Care Supervisor Heavy Equipment Name Role Phone Gael Coffman MD Primary Care Provider Unavail able Aram Modi MD Primary Care Provider Yanet Gilmore Pcp Primary Care Provider UnavailRavinder Wallace MD Unavailable [phone] Fabien Burgos NP Unavailable [phone] Aram Modi MD Primary Care Provider Angelica Cardozo MD Unavailable [phone] Reason for Visit * Reason Onset Date Comments Prior Authorization 10/12/2014 letter of de nial for inspra Encounter Details Date Type Department Care Team Description 10/12/2014 Telephone Adult Medicine [facility] [address] [place] [address] Gael Coffman MD Prior Authorization (letter of denial for inspra) Social History Tobacco Use Types Packs/Day Years Used Date Smoking Tobacco: Former Smokeless Tobacco: Former Comments:quit 30 yrs ago- s moked only about 5 cigarettes / day Alcohol Use Standard Drinks/Week Comments Not Asked 0 (1 standard drink = 0.6 oz pur e alcohol) Sex Assigned at Date Recorded Not on file Job Start Date Occupation Industry Not on file Not on file Not on file documented as of this encounter Miscellaneous Notes * Telephone Encounter - Janet Rosado L.P.N. - 10/12/2014 10:56 AM EDT Medication denied by insurance. * Telephone Encounter - Karen Francois - 10/12/2014 10:51 AM EDT Letter of denial received documented in this encounter Plan of Treatment Not on file documented as of this encounter Visit Diagnoses Not on filedocumented in this encounter Care Teams Supervisor Heavy Equipment Relationship Specialty Start Date End Date Gale Coffman MD PCP - General 06/10/01 04/21/17 Aram Modi MD PCP - General Internal Medicine 04/22/17 09/10/20 [facility], Pcp PCP - General Internal Medicine 09/11/20 02/17/23 Aram Modi MD PCP - General Internal Medicine 02/18/23 Ravinder Jose MD Specialist Cardiology 02/11/23 Fabien Burgos NP Specialist Cardiology 02/11/23 Angelica Price MD [address] [place] [address] Specialist Cardiology 03/11/23 documented as of this encounter
--- OUTSIDE RECORDS SUMMARY | 2024-07-15 15:18 | XMS_ITS | Encounter Summary ---
Author Organization [facility] Address [address] [place] [address] Care Team Providers Care Cast Shell Grinder Name Role Phone Gael Coffman MD Primary Care Provider Unavail able Aram Modi MD Primary Care Provider Luis E Parker Primary Care Provider UnavailRavinder Wallace MD Unavailable [phone] Fabien Burgos NP Unavailable [phone] Aram Modi MD Primary Care Provider Angelica Cardozo MD Unavailable [phone] Encounter Details Date Type Department Care Team Description 10/11/2014 Pt. Non Urgent Medical Question Adult Medicine B - [place] [address] [place] [address] Gael Coffman MD Social History Tobacco Use [...] on filedocumented in this encounter Care Teams Cast Shell Grinder Relationship Specialty Start Date End Date Gael Coffman MD PCP - General 06/10/01 04/21/17 Aram Modi MD PCP - General Internal Medicine 04/22/17 09/10/20 [facility], Pcp PCP - General Internal Medicine 09/11/20 02/17/23 Aram Modi MD PCP - General Internal Medicine 02/18/23 Ravinder Jose MD Specialist Cardiology 02/11/23 Fabien Burgos NP Specialist Cardiology 02/11/23 Angelica Price MD [address] [place] [address] Specialist Cardiology 03/11/23 documented as of this encounter
== END 2024-07-15 13:39 | disposition home or self-care (01) ==
PROVIDERS: PCP Internal Medicine Sports Medicine; Visit Provider Physician Assistant
DX: Z96.651 Presence of right artificial knee joint (principal)
CPT/HCPCS: 99024

== ENCOUNTER → 2024-07-15 12:55 | Outpatient (BNV) | payer MEDICARE, SELFPAY | PROVIDERS: Visit Provider Radiology Diagnostic Radiology | DX: M25.561 Pain in right knee (principal) | CPT/HCPCS: 73562 ==

== ENCOUNTER 2024-07-29 15:36 | Outpatient (REF) | payer MEDICARE, SELFPAY ==
--- NOTE | ~2024-07-29 | US_ITS ---
EXAMINATION: US TRIPLEX LOWER EXTREMITY, RIGHT CLINICAL INFORMATION: Presence of right knee arthroplasty. Right lower extremity pain. COMPARISON: None available. TECHNIQUE: Color-flow triplex imaging with spectral analysis and compression Doppler were performed on the right lower extremity. FINDINGS: Respiratory variation, normal compression and augmented flow are noted throughout the right lower extremity. The visualized common femoral vein, superficial femoral vein, profunda femoral vein, popliteal vein and midcalf peroneal and posterior tibial venous segments show no evidence of deep venous thrombosis. There is no Hernandez's cyst. US/US venous duplex LE RT IMPRESSION: No evidence of deep venous thrombosis involving the right lower extremity. Electronically signed by: Anjel Mckenzie MD 07/29/2024 04:40 PM EDT
--- OUTSIDE RECORDS SUMMARY | 2024-07-29 19:08 | XMS_ITS | Clinical Summary ---
Author Organization [facility] Address [address] [phone] Phone Care Team Providers Care Test Clerk Name Role Phone Aram Modi MD Primary Care Provider [phone] Allergies Active Allergy Reactions Criticality Noted Date [...] 04/09/2023 Overview (04/09/2023): Done on 02/03/2023 at [facility] indications:CHF Multiple premature ventricular complexes 021 [...] sleep apnea 03/29/2014 04/09/20 23 Overview (04/09/2023): [facility] Home Polysomnogram: Date 02/13/2017; AHI 12, [...] Visit [facility] [address] [place] [phone] Abhishek Haynes MD Stage 3a chronic kidney disease (HCC) (Primary Dx); Hypertension; Heart failure with reduced ejection fraction (HCC) from Last 3 Months Immunizations Name Administration [...] Visit [facility] [address] [address] Abhishek Haynes MD [address] [phone] Health Maintenance Due Date Last Done Comments Influenza Vaccine (#1) 2024 2, 03/06/2021, 02/14/2020, Additional history exists Pneumococcal Vaccine: 65+ Years Completed 11/02/2014, 06/07/2014, 09/16/2013, Additional history exists Hepatitis B Vaccine Aged Out No longe r eligible based on patient's age to complete this topic Insurance MEDICARE [facility] MEDICARE [facility] Care Teams Test Clerk Relationship Specialty Start Date End Date Aram Modi MD [address] [place] [address] PCP - General Internal Medicine 04/09/23
--- OUTSIDE RECORDS SUMMARY | 2024-07-29 19:08 | XMS_ITS | Encounter Summary ---
Author Organization [facility] Address [address] [place] [address] Care Team Providers Care Catcher Filter Tip Name Role Phone Aram Modi MD Primary Care Provider [phone] Reason for Visit * Reason Onset Date Comments Medical Records 06/16/2024 Encounter Details Date Type Department Care Team (Late st Contact Info) Description 06/16/2024 Telephone [facility] Cardiology [facility] [address] [place] [phone] Aram Modi MD [address] [address] Medical Records Social History Tobacco [...] PM EST Faxed 06/30/2023 Echo report to [facility] Att: Clarisa at [phone] on 06/16/2024. documented in this encounter Plan of Treatment Upcoming Encounters Date Type Department Care Team (Late st Contact Info) Description 10/28/2024 9:10 AM EDT Office Visit [facility] Cardiology [facility] [address] [place] [address] Fabien Burgos NP [address] [place] [address] [address] [place] [address] 04/20/2025 8:00 AM EST Ancillary Procedure [facility] [address] [place] [address] documented as of this encounter Visit Diagnoses Not on filedocumented in this encounter Care Teams Catcher Filter Tip Relationship Specialty Start Date End Date Aram Modi MD [address] [address] PCP - General 04/22/17 documented as of this encounter
--- OUTSIDE RECORDS SUMMARY | 2024-07-29 19:08 | XMS_ITS | Clinical Summary ---
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 2 00:00: 00 UNSPECIFIED OSTEOARTHRIT IS, UNSPECIFIED SITE [...] 05-19 00:00: 00 ATHSCL HEART DISEASE OF [place] CORONARY ARTERY W/O ANG PCTRS Active 05-19 00:00: 00 ATRIOVENTRIC ULAR BLOCK, SECOND DEGREE Active 05-19 00:00: 00 PRESENCE OF CARDIAC PACEMAKER Active 05-19 00:00: 00 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 05-19 00:00: 00 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 05-19 00:00: 00 PERSONAL HISTORY OF MALIGNANT NEOPLASM OF BRONCHUS AND LUNG Active 05-19 00:00: 00 NURSING HOME (CURRENT) USE OF ASPIRIN Active 05-19 00:00: 00 Allergies, Adverse Reactions, Alerts Allergy Name Allergy Type Status Severity Reaction(s) Onset Date Inactive Date Treating Clinician Comments LACTOSE Propensity to adverse reactions Active 2024-05 15:12:5 2 MORPHINE Propensity to adverse reactions Active 2024-05 15:12:5 8 DILAUDID Propensity to adverse reactions Active 2024-05 15:13:0 5 Medications Ordered Medication Name Filled Medication Name Start Date Stop Date Current Medication? Ordering Clinician Indication Dosage Frequency Signature (SIG) Comments Components omeprazole 20 mg capsule,del ayed release 06-02 00:00: 00 Yes [id number] REFLUX/GERD Per instruc tions DAILY Per instructio ns DAILY (route: oral) Med Classific ation: Gastroint estinal Therapy Agents tamsulosin 0.4 mg capsule 06-02 00:00: 00 Yes [id number] NA Per instruc tions DAILY Per instructio ns DAILY (route: oral) Alternate Route: BY MOUTH. Med Classific ation: Genitouri nary Therapy levothyroxi ne 88 mcg tablet 05-28 00:00: 00 Yes [id number] ENDOCRINE Per instruc tions DAILY Per instructio ns DAILY (route: oral) Med Classific ation: Endocrine finasteride 5 mg tablet 05-27 00:00: 00 Yes [id number] HAIR LOSS Per instruc tions DAILY Per instructio ns DAILY (route: oral) Med Classific ation: Genitouri nary Therapy eplerenone 50 mg tablet 2023-05 2-31 00:00: 00 Yes [id number] HIGH BLOOD PRESSURE Per instruc tions DAILY Per instructio ns DAILY (route: oral) Med Classific ation: Cardiovas cular Therapy Agents hydrochloro thiazide 25 mg tablet 2023-05 2-19 00:00: 00 Yes [id number] HTN Per instruc tions ONCE DAILY Per instructio ns ONCE DAILY (route: oral) Med Classific ation: Cardiovas cular Therapy Agents celecoxib 200 mg capsule 2-11 00:00: 00 Yes [id number] NSAID Per instruc tions 2 TIMES DAILY Per instructio ns 2 TIMES DAILY (route: oral) Med Classific ation: Analgesic , Anti-infl ammatory or Antipyret ic oxycodone 10 mg tablet 2-11 00:00: 00 Yes [id number] PAIN 1 tablet EVERY 4 HOURS 1 tablet EVERY 4 HOURS (route: oral) Med Classific ation: Analgesic , Anti-infl ammatory or Antipyret ic carvedilol 6.25 mg tablet 2-10 00:00: 00 Yes [id number] BETA MICHAEL Per instruc tions TWICE DAILY Per instructio ns TWICE DAILY (route: oral) Med Classific ation: Cardiovas cular Therapy Agents atorvastati n 40 mg tablet 2-07 00:00: 00 Yes [id number] HTN Per instruc tions AT BEDTIME Per instructio ns AT BEDTIME (route: oral) Med Classific ation: Cardiovas cular Therapy Agents omeprazole 20 mg capsule,del ayed release 1-27 00:00: 00 Yes [id number] GERD Per instruc tions TWICE DAILY Per instructio ns TWICE DAILY (route: oral) Med Classific ation: Gastroint estinal Therapy Agents tamsulosin 0.4 mg capsule 1-15 00:00: 00 Yes [id number] NA Per instruc tions DAILY Per instructio ns DAILY (route: oral) Med Classific ation: Genitouri nary Therapy acetaminoph en ER 650 mg tablet,exte nded release 2-13 00:00: 00 Yes [id number] PAIN 1 tablet EVERY 6 HOURS 1 tablet EVERY 6 HOURS (route: oral) Med Classific ation: Analgesic , Anti-infl ammatory or Antipyret ic aspirin 325 mg tablet,vasquez yed release 06-28 00:00: 00 07-27 23:59 :00 No [id number] BLOOD THINNER 1 tablet 2 TIMES DAILY 1 tablet 2 TIMES DAILY (route: oral) Med Classific ation: Analgesic , Anti-infl ammatory or Antipyret ic cholecalcif lonny (vitamin D3) 50 mcg (2,000 unit) capsule 06-28 00:00: 00 Yes [id number] CALCIUM ABSORPTION 1 capsule DAILY 1 capsule DAILY (route: oral) Med Classific ation: Electroly te Balance-N utritiona l Products docusate sodium 100 mg capsule 06-28 00:00: 00 Yes [id number] STOOL SOFTENER 1 capsule 2 TIMES DAILY 1 capsule 2 TIMES DAILY (route: oral) Med Classific ation: Gastroint estinal Therapy Agents prednisone 1 mg tablet 06-28 00:00: 00 Yes [id number] NA 1 tablet EVERY OTHER DAY 1 tablet EVERY OTHER DAY (route: oral) Med Classific ation: Endocrine Vital Signs Vital Name Observation Time Observation Value Commen ts Temperature 2024-07-27 09:31:00.000 98.1 [degF] Temperature 2024-07-23 09:30:00.000 98.1 [degF] Temperature 2024-07-23 08:36:00.000 98.1 [degF] Temperature 2024-07-14 12:58:00.000 98.1 [degF] Temperature 2024-07-13 09:50:00.000 98.1 [degF] Temperature 2024-07-09 09:20:00.000 98.1 [degF] Temperature 2024-07-07 11:40:00.000 98.1 [degF] Temperature 2024-07-06 10:51:00.000 98.1 [degF] Temperature 2024-07-02 13:44:00.000 98.1 [degF] Temperature 2024-07-01 15:51:00.000 98.6 [degF] BMI (%) 2024-07-01 15:51:00.000 28 kg/m2 Height 2024-07-01 15:51:00.000 65 [in_us] Pulse 2024-07-27 09:31:00.000 80 /min Pulse 2024-07-23 09:30:00.000 72 /min Pulse 2024-07-23 08:36:00.000 74 /min Pulse 2024-07-14 12:58:00.000 72 /min Pulse 2024-07-13 09:50:00.000 72 /min Pulse 2024-07-09 09:20:00.000 72 /min Pulse 2024-07-07 11:40:00.000 72 /min Pulse 2024-07-06 10:51:00.000 72 /min Pulse 2024-07-02 13:44:00.000 76 /min Pulse 2024-07-01 15:51:00.000 65 /min O2 Saturation (%) 2024-07-27 09:31:00.000 98 % O2 Saturation (%) 2024-07-23 09:30:00.000 98 % O2 Saturation (%) 2024-07-23 08:36:00.000 98 % O2 Saturation (%) 2024-07-14 12:58:00.000 98 % O2 Saturation (%) 2024-07-13 09:50:00.000 98 % O2 Saturation (%) 2024-07-09 09:20:00.000 97 % O2 Saturation (%) 2024-07-07 11:40:00.000 98 % O2 Saturation (%) 2024-07-06 10:51:00.000 98 % O2 Saturation (%) 2024-07-01 15:51:00.000 93 % Respirations 2024-07-27 09:31:00.000 16 /min Respirations 2024-07-23 09:30:00.000 16 /min Respirations 2024-07-23 08:36:00.000 16 /min Respirations 2024-07-14 12:58:00.000 16 /min Respirations 2024-07-13 09:50:00.000 16 /min Respirations 2024-07-09 09:20:00.000 17 /min Respirations 2024-07-07 11:40:00.000 16 /min Respirations 2024-07-06 10:51:00.000 16 /min Respirations 2024-07-02 13:44:00.000 16 /min Respirations 2024-07-01 15:51:00.000 18 /min Weight (lbs) 2024-07-01 15:51:00.000 173 [lb_av] Systolic Blood Pressure 2024-07-27 09:31:00.000 110 mm [Hg] Systolic Blood Pressure 2024-07-23 09:30:00.000 110 mm [Hg] Systolic Blood Pressure 2024-07-23 08:36:00.000 118 mm [Hg] Systolic Blood Pressure 2024-07-14 12:58:00.000 116 mm [Hg] Systolic Blood Pressure 2024-07-13 09:50:00.000 132 mm [Hg] Systolic Blood Pressure 2024-07-09 09:20:00.000 110 mm [Hg] Systolic Blood Pressure 2024-07-07 11:40:00.000 110 mm [Hg] Systolic Blood Pressure 2024-07-06 10:51:00.000 112 mm [Hg] Systolic Blood Pressure 2024-07-02 13:44:00.000 100 mm [Hg] Systolic Blood Pressure 2024-07-01 15:51:00.000 118 mm [Hg] Diastolic Blood Pressure 2024-07-27 09:31:00.000 75 mm [Hg] Diastolic Blood Pressure 2024-07-23 09:30:00.000 62 mm [Hg] Diastolic Blood Pressure 2024-07-23 08:36:00.000 75 mm [Hg] Diastolic Blood Pressure 2024-07-14 12:58:00.000 [...] Comments Future Scheduled Test BED MOBILI TY (PT/PAPER GLUING OPERATOR) [code = BED MOBILITY (PT/PAPER GLUING OPERATOR)] Future Scheduled Test PT/PAPER GLUING OPERATOR TO PROVIDE GAIT TRAINING FOR IMPROVED MOBILITY AND /OR TO NORMALIZE GAIT PATTERN [code = PT/PAPER GLUING OPERATOR TO PROVIDE GAIT TRAINING FOR IMPROVED MOBILITY AND /OR TO NORMALIZE GAIT PATTERN] Future Scheduled Test THERAPEUTI C EXERCISES AND ESTABLISHING A HOME EXERCISE PROGRAM (PT/PAPER GLUING OPERATOR) [code = THERAPEUTIC EXERCISES AND ESTABLISHING A HOME EXERCISE PROGRAM (PT/PAPER GLUING OPERATOR)] Future Scheduled Test PT/PAPER GLUING OPERATOR TO PROVIDE STAIR TRAINING [code = PT/PAPER GLUING OPERATOR TO PROVIDE STAIR TRAINING] Future Scheduled Test PT / PAPER GLUING OPERATOR T O MONITOR AND EDUCATE ON OXYGEN SATURATION DURING ADLS/IADLS, NOTIFY PHYSICIAN AND/OR THE RN CLINICAL CROOK OPERATOR FOR PHYSICIAN NOTIFICATION AND IF O2 SATS BELOW PHYSICIAN ORDERED PARAMETERS AFTER 10 MIN OF REST [code = PT / PAPER GLUING OPERATOR TO MONITOR AND EDUCATE ON OXYGEN SATURATION DURING ADLS/IADLS, NOTIFY PHYSICIAN AND/OR THE RN CLINICAL CROOK OPERATOR FOR PHYSICIAN NOTIFICATION AND IF O2 SATS BELOW PHYSICIAN ORDERED PARAMETERS AFTER 10 MIN OF REST] Future Scheduled Test PT / PAPER GLUING OPERATOR M AY EDUCATE ON PAIN MANAGEMENT CLINICALLY INDICATED, INCLUDING NON-PHARMACOLOGICAL PAIN REDUCTION TECHNIQUES AND USE OF CRYOTHERAPY OR HEAT UP TO 20 MIN AT A TIME FOR PAIN MANAGEMENT 4 TIMES PER DAY TO RIGHT KNEE [code = PT / PAPER GLUING OPERATOR MAY EDUCATE ON PAIN MANAGEMENT CLINICALLY INDICATED, INCLUDING NON-PHARMACOLOGICAL PAIN REDUCTION TECHNIQUES AND USE OF CRYOTHERAPY OR HEAT UP TO 20 MIN AT A TIME FOR PAIN MANAGEMENT 4 TIMES PER DAY TO RIGHT KNEE] Future Scheduled Test AGENCY MAY PERFORM A RESUMPTION OF CARE VISIT FOLLOWING ANY HOSPITAL ADMISSION. PT TO EVALUATE, OBSERVE / ASSESS, AND MONITOR, PAPER GLUING OPERATOR TO OBSERVE AND MONITOR, PROVIDE SKILLED THERAPEUTIC INTERVENTION, ACTIVITY, EDUCATION, AND TRAINING TO ADDRESS; [code = AGENCY MAY PERFORM A RESUMPTION OF CARE VISIT FOLLOWING ANY HOSPITAL ADMISSION. PT TO EVALUATE, OBSERVE / ASSESS, AND MONITOR, PAPER GLUING OPERATOR TO OBSERVE AND MONITOR, PROVIDE SKILLED THERAPEUTIC INTERVENTION, ACTIVITY, EDUCATION, AND TRAINING TO ADDRESS;] Future Scheduled Test NEUROMUSCU LAR RE-EDUCATION / BALANCE / POSTURAL CONTROL (PT) [code = NEUROMUSCULAR RE-EDUCATION / BALANCE / POSTURAL CONTROL (PT)] Future Scheduled Test PT/PAPER GLUING OPERATOR TO TEACH KNEE REPLACEMENT SELF-MANAGEMENT [code = PT/PAPER GLUING OPERATOR TO TEACH KNEE REPLACEMENT SELF-MANAGEMENT] Future Scheduled Test PT / PAPER GLUING OPERATOR T O OBSERVE WOUND/INCISION AND/OR INTACT DRESSING ON RIGHT KNEE AND REPORT EARLY SIGNS AND SYMPTOMS OF WOUND DETERIORATION, COMPLICATIONS, OR INFECTION TO PHYSICIAN AND/OR THE RN CLINICAL CROOK OPERATOR FOR PHYSICIAN NOTIFICATION. NON REMOVABLE AQUACEL DSG TO BE REMOVED BY SURGEON IN 2 WEEKS AT F/U VISIT [code = PT / PAPER GLUING OPERATOR TO OBSERVE WOUND/INCISION AND/OR INTACT DRESSING ON RIGHT KNEE AND REPORT EARLY SIGNS AND SYMPTOMS OF WOUND DETERIORATION, COMPLICATIONS, OR INFECTION TO PHYSICIAN AND/OR THE RN CLINICAL CROOK OPERATOR FOR PHYSICIAN NOTIFICATION. NON REMOVABLE AQUACEL DSG [...] End Date/Time Encounter Type Admission Type Attending [facility] Care Department Encounter ID Discharge Date Discharge Status Discharge Condition Discharge Reason Percent Goals Met 2024-07-01 00:00:00 2024-08-29 00:00:00 Outpatient NEW ADMISSION NELL MCKENNA [facility] [id number]
--- OUTSIDE RECORDS SUMMARY | 2024-07-29 19:09 | XMS_ITS | Clinical Summary ---
Author Organization [address] [place] [address] [place] [phone] Phone Care Team Providers Care Manager Of Clinical Name Role Phone Aram Modi MD Primary Care Provider [phone] Allergies Active Allergy Reactions Criticality Noted Date [...] 1 (one) time each day. 3 Active eplerenone (INSPRA) 50 mg tablet Take [...] a day. 180 tablet 3 4 Active carvediloL (COREG) 6.25 mg tablet TAKE 1 TABLET TWICE DAILY WITH MEALS 180 tablet 1 5 Active Active Problems Problem Noted Date Diagnosed [...] 12 lead Coronary artery disease invo lving redding coronary artery of redding heart without angina pectoris 02/18/2023 Cardiomyopathy 02/17/2023 [...] 08/26/2014 Obstructive sleep apnea 03/29/2014 Overview (03/04/2024): [facility] Home Polysomnogram: Date 02/13/2017; [...] Type Department Care Team Description 06/16/2024 Telephone [facility] Cardiology [facility] [address] [place] [address] Aram Modi MD Medical Records 05/25/2024 7:30 PM EST Ancillary Procedure [facility] [address] [place] [phone] 05/20/2024 Telephone [facility] [address] [place] [phone] Aram Modi MD Medical Records 05/18/2024 7:30 AM EST Ancillary Procedure [facility] [address] [place] [phone] Suspected DVT (deep vein thrombosis); Chest pain on breathing 05/17/2024 1:30 PM EST Consult [facility] [address] [place] [phone] Brooklynn Church MD Other cardiomyopathy ([facility]/HCC) (Primary Dx); Primary hypertension; Pure hypercholesterolemia; Stage 3 chronic kidney disease, unspecified whether stage 3a or 3b CKD ([facility]/HCC); Polymyalgia rheumatica ([facility]/HCC); Second degree heart block; Suspected DVT (deep vein thrombosis); Chest pain on breathing 05/13/2024 Telephone [facility] [address] [place] [address] Brooklynn Church MD 05/06/2024 Telephone [facility] [address] [place] [address] Brooklynn Church MD medication from Last 3 Months Immunizations Name Administration Dates Next Due Influenza Quadravalent, 0.5m l (Fluad) 65yo and older 04/15/2022 Influenza trivalent, 0.5mL ( Fluad) 65yo and older 02/14/2020,02/17/2017 Influenza trivalent, 0.5mL, preservative free (Fluarix; FluLaval; Fluzone) ages 6mo and older (Afluria) 3 years and older 02/27/2015,05/02/2014,04/01/2012,02/07,03/22/2008,03/22/2005 Influenza, Unspecified 03/16/2019,02/26/2016 PPD Test 06/23/2000 [facility] SARS-CoV-2 COVID-19, mRNA, LNP-S, preservative free 07/23/2020,06/25/2020 Pneumococcal conjugate 13 va lent (Prevnar 13, PCV13) 2mo and older 11/02/2014 Pneumococcal polysaccharide 23 valent (Pneumovax 23) 2yo and older 09/16/2013,01/15/2002 Td Tetanus diptheria (Tdvax) 7yo and older 11/29/2008 Tdap Tetanus diptheria acell ular pertussis (Boostrix; Adacel) 7yo and older 05/17/2016 Zoster Live 12/24/2013 Surgical History Surgery Date Site/Laterality Comments OTHER SURGICAL HISTORY 2004 PROCEDURE: [place] RM[facility] LUNG OTHER THAN PNEUMONECTOMY 1 LOBE LOBECT; COMMENT: LLL for Ca OTHER SURGICAL HISTORY 05/22/12 PROCEDURE: NUCLEAR STRESS TEST REPORT; COMMENT: Nerissa Villanueva, Neg OTHER SURGICAL HISTORY 01/30 PROCEDURE: OUTSIDE NUCLEAR STRESS TEST; COMMENT: neg OTHER SURGICAL HISTORY 01/30 PROCEDURE: CTA CHEST; W/WO CONTRAST MAT; COMMENT: neg COLONOSCOPY 06/29/04 PROCEDURE: HISTORICAL COLONOSCOPY; COMMENT: Nataly perry COLONOSCOPY 03/01 [facility] PROCEDURE: HISTORICAL COLONOSCOPY; COMMENT: devika Shipley; otherwise normal to terminal ileum with normal colonic bxys. UPPER GASTROINTESTINAL ENDOSCOPY 03/01 [facility] PROCEDURE: [place] UPPER GI ENDOSCOPY PERFORMED; COMMENT: NOrmal, with normal duodenal biopsies UPPER GASTROINTESTINAL ENDOSCOPY 12/26/2010 PROCEDURE: [place] UPPER GI ENDOSCOPY PERFORMED; COMMENT: Minimal erosive gastritis; [facility]; bx negative for H. pylori. KNEE SURGERY 2016 PROCEDURE: HISTORICAL KNEE SURGERY Medical History Medical History Date Comments BPH (benign prostatic hyperplasia) 09/15/2017 DX:BPH (benign prostatic hyperplasia) Chronic pruritus 10/23/2015 DX:Chronic prur itus Chronic rhinitis 03/22/2008 DX:Chronic rhin itis CKD (chronic kidney disease) stage 3, GFR 30-59 ml/min ([facility]/HCC) 10/28/2013 DX:CKD (chronic kidney dise ase) stage 3, GFR 30-59 ml/min ([facility]); COMMENT: GFR 53 on 08/18/12. 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 DX:Cysti c mass of pancreas Elevated PSA 11/29/2008 DX:Elevated PSA; COMMENT: Douglas; Bx; neg 06/27 Functional diarrhea 09/12/2016 DX:Functiona l diarrhea Gout 08/18/2012 DX:Gout History of lung cancer 12/08/2015 DX:Histor y of lung cancer; COMMENT: NSC, s/p lobectomy,Chema; Sonyaarin; 07/21;left lower lobe Hyperlipidemia 08/06/2005 DX:Hyperlipidemi a Hypertension 11/28/2011 DX:Hypertension; COMMENT: Overview: Hypertensive disorder Hypothyroid 03/28/2008 DX:Hypothyroid IBS (irritable bowel syndrome) 04/14/2018 D X:IBS (irritable bowel syndrome) Internal hemorrhoids with complication 05/22/2015 DX:Internal hemorrhoids with complication Irritable bowel syndrome (IBS) 04/14/2018 D X:Irritable bowel syndrome (IBS) Obstructive sleep apnea 03/29/2014 DX:Obstr uctive sleep apnea; COMMENT: [facility] Home Polysomnogram: Date 02/13/2017; [...] Description 10/28/2024 9:10 AM EDT Office Visit [facility] [address] [place] [phone] Fabien Burgos NP [address] [place] [address] [address] [place] [address] 04/20/2025 8:00 AM EST Ancillary Procedure [facility] Cardiology [facility] [address] [place] [phone] Health Maintenance Due Date Last Done Comments [...] this topic Medical Devices Implanted Type Area Automation And Control Engineer Device Identifier Shelf Expiration Date Model / Serial / Lot Bsci-Crm [id number] Implanted:02/16 (Quantity not on file) Cardiac HOMICIDE SQUAD CAPTAIN-P [place] [employer] CARD RHYTHM [facility] [id number] / [id number] / Procedures Procedure Name Priority Date/Time Associated Diagnosis Comments CARDIAC DEVICE CHECK- REMOTE- MURJ Routine 05/25/2024 7:29 PM EST VAS US DUPLEX LOWER EXT VENOUS LEFT Routine 05/18/2024 7:36 AM EST Suspected DVT (deep vein thrombosis) Chest pain on breathing ECG 12-LEAD Routine 05/17/2024 1:22 PM EST Other cardiomyopathy (CMS/HCC) Primary hypertension Pure hypercholesterolemia Second degree heart block ANNUAL BMP BLOOD TEST Routine 12/02/2022 LIPID PANEL Routine 09/28/2019 from Last 3 Months or Most Recently Relevant to Health Maintenance Results * Cardiac device check - Remote- MURJ (05/25/2024 7:29 PM EST) Date Time Interrogation Session [id number] CV DEVICE CHECK Type Interrogation Session Remote Scheduled CV DEVICE CHECK Implantable Pulse Generator Automation And Control Engineer BSX CV DEVICE CHECK Implantable Pulse Generator Type HOMICIDE SQUAD CAPTAIN-P CV DEVICE CHECK Implantable Pulse Generator Model U128 CV DEVICE CHECK Implantable Pulse Generator Serial Number [id number] CV DEVICE CHECK Implantable Pulse Generator Implant Date 20230305 CV DEVICE CHECK Battery Remaining Percentage 100.00 CV DEVICE CHECK Battery Remaining Longevity 114.0 CV DEVICE CHECK Battery Status Beginning of Service CV DEVICE CHECK Ayan Statistic RA Percent Paced 41.00 CV DEVICE CHECK Ayan Statistic RV Percent Paced 100.00 CV DEVICE CHECK HOMICIDE SQUAD CAPTAIN Statistic LV Percent Paced 100.00 CV DEVICE CHECK Atrial Tachy Statistic AT/AF [place] Percent 0.00 CV DEVICE CHECK Lead Channel [...] CV DEVICE CHECK Ventricular chambers paced during HOMICIDE SQUAD CAPTAIN pacing. BiV CV DEVICE CHECK Ayan Setting Lower Rate Limit 60 CV DEVICE CHECK Ayan Setting AT Mode Switch Rate 170 CV DEVICE CHECK Ayan Setting Maximum Tracking Rate 130 CV DEVICE CHECK Ayan Setting Maximum Sensor Rate 130 CV DEVICE CHECK Ayan Setting PAV Delay 150 CV DEVICE CHECK Ayan Setting SUZY Delay 100 CV DEVICE CHECK HOMICIDE SQUAD CAPTAIN LV-RV Delay 0 CV D EVICE CHECK [...] us Darleen FISCHER CV IMPLANTABLE CARDIAC DEVICE [place] OCEDURES Final Result * Vascular US duplex [...] the left leg. The vessels showed compressibility. Traffic Warehouse Supervisor Details A call scale, color and doppler analysis ultrasound was performed. During the study longitudinal and transverse views were obtained. Pulsed wave doppler was performed. Result [facility] Brooklynn Church MD CV VASCULAR PROCEDURES Final R esult * ECG 12 lead (05/17/2024 1:22 PM EST) [facility] Ventricular Rate ECG 60 BPM GEMUSE Atrial Rate 60 BPM GEMUSE P-R Interval 178 ms GEMUSE QRS Duration 140 ms GEMUSE Q-T Interval 466 ms GEMUSE QTc 466 ms GEMUSE P Wave Cummings 25 degrees GEMUSE R Cummings 0 degrees GEMUSE T Cummings 82 degrees GEMUSE ECG Interpretation AV dual-paced rhythm Abnormal ECG When compared with ECG of 27-AUG-2004 14:55, Electronic ventricular pacemaker has replaced Sinus rhythm Confirmed by BROOKLYNN CHURCH ([id number]) on 05/17/2024 2:55:34 PM GEMUSE 05/17/2024 1:22 PM EST 05/17/2024 2:55 PM EST Result [facility] Brooklynn Church MD ECG ORDERABLES Final Result GEMUSE * Annual BMP Blood Test (12/02/2022) [facility] Annual BMP Blood Test abstracted Result [facility] Historical Provider HEALTH MAINTENANCE Final Result * (ABNORMAL) Lipid panel (09/28/2019) [facility] LDL/HDL Ratio 4 0 - 4 Triglycerides 290(A) 0 - 150 mg/dL Cholesterol 192 0 - 200 mg/dL HDL 51 >=40 mg/dL LDL Cholesterol 83 0 - 100 mg/dL Blood Venous blood specimen / Unknown Result [facility] Historical Kiki PIZANO LAB BLOOD ORDERABLES Frida l Result from Last 3 Months or Most Recently Relevant to Health Maintenance Insurance MEDICARE [facility] Care Teams Manager Of Clinical Relationship Specialty Start Date End Date Aram Modi MD [address] [address] PCP - General 04/22/17
--- OUTSIDE RECORDS SUMMARY | 2024-07-29 19:09 | XMS_ITS | Clinical Summary ---
Author Organization Unknown Care Team Providers Care [employer] Combination Teacher Name Role Phone MICHAEL PIZANO, STACIE Unavailable Unavailable CLARISA LIFE SCIENCES INSTRUCTOR, NELL Unavailable Unavailable FLORY PT, NELIDA Unavailable Unavail able Payers Payer Name Policy Type Policy Number Effective Date Expira tion Date MEDICARE.[facility].PDGM [id number] Problems Condition Name Condition Details Condition Category [...] 05-19 00:00: 00 ATHSCL HEART DISEASE OF [place] CORONARY ARTERY W/O ANG PCTRS Active 05-19 00:00: 00 ATRIOVENTRIC ULAR BLOCK, SECOND DEGREE Active 05-19 00:00: 00 PRESENCE OF CARDIAC PACEMAKER Active 05-19 00:00: 00 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 05-19 00:00: 00 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 05-19 00:00: 00 PERSONAL HISTORY OF MALIGNANT NEOPLASM OF BRONCHUS AND LUNG Active 05-19 00:00: 00 FDC (CURRENT) USE OF ASPIRIN Active 05-19 00:00: [...] capsule,del ayed release 06-02 00:00: 00 Yes [id number] REFLUX/GERD Per instruc tions DAILY Per instructio ns DAILY (route: oral) Med Classific ation: Gastroint estinal Therapy Agents tamsulosin 0.4 mg capsule 06-02 00:00: 00 Yes [id number] NA Per instruc tions DAILY Per instructio ns DAILY (route: oral) Alternate Route: BY MOUTH. Med Classific ation: Genitouri nary Therapy levothyroxi ne 88 mcg tablet 05-28 00:00: 00 Yes [id number] ENDOCRINE Per instruc tions DAILY Per instructio ns DAILY (route: oral) Med Classific ation: Endocrine finasteride 5 mg tablet 05-27 00:00: 00 Yes [id number] HAIR LOSS Per instruc tions DAILY Per instructio ns DAILY (route: oral) Med Classific ation: Genitouri nary Therapy eplerenone 50 mg tablet 2023-05 2-31 00:00: 00 Yes [id number] HIGH BLOOD PRESSURE Per instruc tions DAILY Per instructio ns DAILY (route: oral) Med Classific ation: Cardiovas cular Therapy Agents hydrochloro thiazide 25 mg tablet 2023-05 2-19 00:00: 00 Yes [id number] HTN Per instruc tions ONCE DAILY Per instructio ns ONCE DAILY (route: oral) Med Classific ation: Cardiovas cular Therapy Agents celecoxib 200 mg capsule 2-11 00:00: 00 Yes [id number] NSAID Per instruc tions 2 TIMES DAILY Per instructio ns 2 TIMES DAILY (route: oral) Med Classific ation: Analgesic , Anti-infl ammatory or Antipyret ic oxycodone 10 mg tablet 2-11 00:00: 00 Yes [id number] PAIN 1 tablet EVERY 4 HOURS 1 tablet EVERY 4 HOURS (route: oral) Med Classific ation: Analgesic , Anti-infl ammatory or Antipyret ic carvedilol 6.25 mg tablet 2-10 00:00: 00 Yes [id number] BETA MICHAEL Per instruc tions TWICE DAILY Per instructio ns TWICE DAILY (route: oral) Med Classific ation: Cardiovas cular Therapy Agents atorvastati n 40 mg tablet 2-07 00:00: 00 Yes [id number] HTN Per instruc tions AT BEDTIME Per instructio ns AT BEDTIME (route: oral) Med Classific ation: Cardiovas cular Therapy Agents omeprazole 20 mg capsule,del ayed release 1-27 00:00: 00 Yes [id number] GERD Per instruc tions TWICE DAILY Per instructio ns TWICE DAILY (route: oral) Med Classific ation: Gastroint estinal Therapy Agents tamsulosin 0.4 mg capsule 1-15 00:00: 00 Yes [id number] NA Per instruc tions DAILY Per instructio ns DAILY (route: oral) Med Classific ation: Genitouri nary Therapy acetaminoph en ER 650 mg tablet,exte nded release 2-13 00:00: 00 Yes [id number] PAIN 1 tablet EVERY 6 HOURS 1 tablet EVERY 6 HOURS (route: oral) Med Classific ation: Analgesic , Anti-infl ammatory or Antipyret ic aspirin 325 mg tablet,vasquez yed release 06-28 00:00: 00 07-27 23:59 :00 No [id number] BLOOD THINNER 1 tablet 2 TIMES DAILY 1 tablet 2 TIMES DAILY (route: oral) Med Classific ation: Analgesic , Anti-infl ammatory or Antipyret ic cholecalcif lonny (vitamin D3) 50 mcg (2,000 unit) capsule 06-28 00:00: 00 Yes [id number] CALCIUM ABSORPTION 1 capsule DAILY 1 capsule DAILY (route: oral) Med Classific ation: Electroly te Balance-N utritiona l Products docusate sodium 100 mg capsule 06-28 00:00: 00 Yes [id number] STOOL SOFTENER 1 capsule 2 TIMES DAILY 1 capsule 2 TIMES DAILY (route: oral) Med Classific ation: Gastroint estinal Therapy Agents prednisone 1 mg tablet 06-28 00:00: 00 Yes [id number] NA 1 tablet EVERY OTHER DAY 1 [...] Comments Future Scheduled Test BED MOBILI TY (PT/LIFE SCIENCES INSTRUCTOR) [code = BED MOBILITY (PT/LIFE SCIENCES INSTRUCTOR)] Future Scheduled Test PT/LIFE SCIENCES INSTRUCTOR TO PROVIDE GAIT TRAINING FOR IMPROVED MOBILITY AND /OR TO NORMALIZE GAIT PATTERN [code = PT/LIFE SCIENCES INSTRUCTOR TO PROVIDE GAIT TRAINING FOR IMPROVED MOBILITY AND /OR TO NORMALIZE GAIT PATTERN] Future Scheduled Test THERAPEUTI C EXERCISES AND ESTABLISHING A HOME EXERCISE PROGRAM (PT/LIFE SCIENCES INSTRUCTOR) [code = THERAPEUTIC EXERCISES AND ESTABLISHING A HOME EXERCISE PROGRAM (PT/LIFE SCIENCES INSTRUCTOR)] Future Scheduled Test PT/LIFE SCIENCES INSTRUCTOR TO PROVIDE STAIR TRAINING [code = PT/LIFE SCIENCES INSTRUCTOR TO PROVIDE STAIR TRAINING] Future Scheduled Test PT / LIFE SCIENCES INSTRUCTOR T O MONITOR AND EDUCATE ON OXYGEN SATURATION DURING ADLS/IADLS, NOTIFY PHYSICIAN AND/OR THE RN CLINICAL BACK ORDER CLERK FOR PHYSICIAN NOTIFICATION AND IF O2 SATS BELOW PHYSICIAN ORDERED PARAMETERS AFTER 10 MIN OF REST [code = PT / LIFE SCIENCES INSTRUCTOR TO MONITOR AND EDUCATE ON OXYGEN SATURATION DURING ADLS/IADLS, NOTIFY PHYSICIAN AND/OR THE RN CLINICAL BACK ORDER CLERK FOR PHYSICIAN NOTIFICATION AND IF O2 SATS BELOW PHYSICIAN ORDERED PARAMETERS AFTER 10 MIN OF REST] Future Scheduled Test PT / LIFE SCIENCES INSTRUCTOR M AY EDUCATE ON PAIN MANAGEMENT CLINICALLY INDICATED, INCLUDING NON-PHARMACOLOGICAL PAIN REDUCTION TECHNIQUES AND USE OF CRYOTHERAPY OR HEAT UP TO 20 MIN AT A TIME FOR PAIN MANAGEMENT 4 TIMES PER DAY TO RIGHT KNEE [code = PT / LIFE SCIENCES INSTRUCTOR MAY EDUCATE ON PAIN MANAGEMENT CLINICALLY INDICATED, INCLUDING NON-PHARMACOLOGICAL PAIN REDUCTION TECHNIQUES AND USE OF CRYOTHERAPY OR HEAT UP TO 20 MIN AT A TIME FOR PAIN MANAGEMENT 4 TIMES PER DAY TO RIGHT KNEE] Future Scheduled Test AGENCY MAY PERFORM A RESUMPTION OF CARE VISIT FOLLOWING ANY HOSPITAL ADMISSION. PT TO EVALUATE, OBSERVE / ASSESS, AND MONITOR, LIFE SCIENCES INSTRUCTOR TO OBSERVE AND MONITOR, PROVIDE SKILLED THERAPEUTIC INTERVENTION, ACTIVITY, EDUCATION, AND TRAINING TO ADDRESS; [code = AGENCY MAY PERFORM A RESUMPTION OF CARE VISIT FOLLOWING ANY HOSPITAL ADMISSION. PT TO EVALUATE, OBSERVE / ASSESS, AND MONITOR, LIFE SCIENCES INSTRUCTOR TO OBSERVE AND MONITOR, PROVIDE SKILLED THERAPEUTIC INTERVENTION, ACTIVITY, EDUCATION, AND TRAINING TO ADDRESS;] Future Scheduled Test NEUROMUSCU LAR RE-EDUCATION / BALANCE / POSTURAL CONTROL (PT) [code = NEUROMUSCULAR RE-EDUCATION / BALANCE / POSTURAL CONTROL (PT)] Future Scheduled Test PT/LIFE SCIENCES INSTRUCTOR TO TEACH KNEE REPLACEMENT SELF-MANAGEMENT [code = PT/LIFE SCIENCES INSTRUCTOR TO TEACH KNEE REPLACEMENT SELF-MANAGEMENT] Future Scheduled Test PT / LIFE SCIENCES INSTRUCTOR T O OBSERVE WOUND/INCISION AND/OR INTACT DRESSING ON RIGHT KNEE AND REPORT EARLY SIGNS AND SYMPTOMS OF WOUND DETERIORATION, COMPLICATIONS, OR INFECTION TO PHYSICIAN AND/OR THE RN CLINICAL BACK ORDER CLERK FOR PHYSICIAN NOTIFICATION. NON REMOVABLE AQUACEL DSG TO BE REMOVED BY SURGEON IN 2 WEEKS AT F/U VISIT [code = PT / LIFE SCIENCES INSTRUCTOR TO OBSERVE WOUND/INCISION AND/OR INTACT DRESSING ON RIGHT KNEE AND REPORT EARLY SIGNS AND SYMPTOMS OF WOUND DETERIORATION, COMPLICATIONS, OR INFECTION TO PHYSICIAN AND/OR THE RN CLINICAL BACK ORDER CLERK FOR PHYSICIAN NOTIFICATION. NON REMOVABLE AQUACEL DSG [...] End Date/Time Encounter Type Admission Type Attending [facility] Care Department Encounter ID Discharge Date Discharge Status Discharge Condition Discharge Reason Percent Goals Met 2024-07-01 00:00:00 2024-08-29 00:00:00 Outpatient NEW ADMISSION [facility] [id number]
--- OUTSIDE RECORDS SUMMARY | 2024-07-29 19:09 | XMS_ITS | Clinical Summary ---
Author Organization [facility] Address [address] [place] [address] Care Team Providers Care Director It Project Name Role Phone Gael Coffman MD Primary Care Provider [phone] Allergies Active Allergy Reactions Criticality Noted Date [...] to complete this topic Care Teams Director It Project Relationship Specialty Start Date End Date Gael Coffman MD PCP - General Endocrinology 12/19/16
== END 2024-07-29 15:37 | disposition home or self-care (01) ==
LOC: HO.US 15:36
PROVIDERS: Visit Provider Physician Assistant
DX: R60.0 Localized edema (principal); Z96.651 Presence of right artificial knee joint
CPT/HCPCS: 93971

== ENCOUNTER → 2024-07-29 15:41 | Outpatient (BNV) | payer MEDICARE, SELFPAY | PROVIDERS: Visit Provider Radiology Diagnostic Radiology | DX: M79.604 Pain in right leg (principal); Z96.641 Presence of right artificial hip joint | CPT/HCPCS: 93971 ==

== ENCOUNTER 2024-07-30 11:52 | Outpatient (AMB) | payer MEDICARE, SELFPAY ==
--- NOTE | 2024-07-30 12:09 | MHC.OFFVIS ---
Intake Visit Reasons: PO: R TKA w/ 06/28/24 Intake Note: Cy is a 84 year old male who presents today for a post op appointment s/p right TKA 06/28/24 Patient reports he is having a lot of pain on his thigh. Allergies lactose [LACTOSE] Allergy (Severe, Verified 07/30/24 12:10) Diarrhea morphine [MORPHINE] Allergy (Intermediate, Verified 07/30/24 12:10) INVOLUNTARY SPASMS atenolol Adverse Reaction (Intermediate, Verified 07/30/24 12:10) Nausea HPI HPI PO: R TKA w/ 06/28/24: Details: Mr. Velez is an 84-year-old male status post right total knee arthroplasty performed on 06/28/[address] Deng. He reports that he was at his pin game machine inspector the other day and the doctor was concerned about the swelling in the right lower extremity. He was instructed to give orthopedics a call to see if this was normal. Upon his call yesterday a stat ultrasound of the right lower extremity was ordered and patient was sent for the procedure later that evening. Results did come back yesterday evening on 07/29/2024 and there was no evidence of DVT in the right lower extremity. The patient reports that he continues to have right thigh pain and feels as though maybe he overdid it with physical therapy. [facility] Medical History Arthritis Back pain Anemia Hiatal hernia Murmur Scarlet fever Hyperlipidemia Chronic rhinitis Elevated PSA Thyroid disease HTN (hypertension) Gout CKD (chronic kidney disease) stage 3, GFR 30-59 ml/min Sleep apnea Internal hemorrhoids Polymyalgia rheumatica Chronic pruritus Lung cancer Functional diarrhea Osteoarthritis BPH (benign prostatic hyperplasia) Serrated polyp of colon Cystic mass of pancreas IBS (irritable bowel syndrome) Venous insufficiency of both lower extremities PVC (premature ventricular contraction) Cardiomyopathy Chest pain Coronary artery disease involving stillaguamish coronary artery Second degree heart block Cardiac resynchronization therapy pacemaker (COMPOSITION WEATHERBOARD INSTALLER-P) in place Surgical History H/O hemorrhoidectomy Hx of lumbosacral spine surgery Hx of bilateral cataract extraction Hx of removal of cyst Hx of inguinal hernia repair Hx of cholecystectomy H/O colonoscopy History of esophagogastroduodenoscopy (EGD) History of lobectomy of lung History of permanent cardiac pacemaker placement Hx of arthroscopy of left knee Hx of cardiac catheterization Social History Are you a primary customer care specialist to a significant other at home: No Do you presently have visiting nurse or other home services: No Patient Tobacco Use Status: Former Tobacco user service: No Review of Systems Const All systems reviewed & are unremarkable except as noted in HPI and below Physical Exam Const General: cooperative, healthy appearing and no acute distress Resp Effort & Inspection: normal respiratory effort and able to speak in complete sentences Cardio Rate: regular rate Peripheral pulses: Peripheral pulses 2+ throughout Skin Lesions: no lesions Rashes: no rashes Extrem Other: Right knee incision site clean dry and intact. No surrounding erythema or drainage. No signs of infection. Range of motion 0-120. NVI. Assessment & Plan Assessment & Plan (1) Status post total right knee replacement: Code(s): Z96.651 - Presence of right artificial knee joint Category: Surgical Plan Mr. Velez is an 84-year-old male status post right total knee arthroplasty performed on 06/28/[address] Deng. He reports that he was at his pin game machine inspector the other day and the doctor was concerned about the swelling in the right lower extremity. He was instructed to give orthopedics a call to see if this was normal. Upon his call yesterday a stat ultrasound of the right lower extremity was ordered and patient was sent for the procedure later that evening. Results did come back yesterday evening on 07/29/2024 and there was no evidence of DVT in the right lower extremity. The patient reports that he continues to have right thigh pain and feels as though maybe he overdid it with physical therapy. While in the office today I did discuss with the patient that having right thigh pain is quite common after surgery as we do have to cut into the quad tendon during the procedure. I do not feel any palpable defect that would indicate a quad tendon tear or rupture at this time. I instructed the patient that he should take 1 week of physical therapy off to recover and then he can begin physical therapy get. I have also recommended continuation of Celebrex which I will send a new prescription to the pharmacy to assist with swelling in the right lower extremity. As stated previously the ultrasound that was obtained on 07/29/2024 with a right lower extremity was negative for DVT. He will follow up at his normally scheduled follow-up appointment, sooner if needed. Coding Level of Care Code Global (46377) Diagnoses Status post total right knee replacement Z96.651
--- OUTSIDE RECORDS SUMMARY | 2024-07-30 13:40 | XMS_ITS | Encounter Summary ---
Author Organization [facility] Address [address] [place] [address] Care Team Providers Care Regional Trainer Name Role Phone Aram Modi MD Primary Care Provider Yanet Gilmore Pcp Primary Care Provider [facility] Ravinder Salvador MD Unavailable [phone] Fabien Burgos NP Unavailable Aram Modi MD Primary Care Provider Unava Angelica Russell MD Unavailable [phone] Encounter Details Date Type Department Care Team Description 07/04/2020 Orders Only Medicine/Pediatrics - [address] [id number] Aram Modi MD Stage 3 chronic kidney [...] EST [facility] Comment: If patient is -Guamanian, multiply result by 1.21 Chronic Kidney Disease: [...] Primary documented in this encounter Care Teams Regional Trainer Relationship Specialty Start Date End Date Aram Modi MD PCP - General Internal Medicine 04/22/17 09/10/20 [facility], Pcp PCP - General Internal Medicine 09/11/20 02/17/23 Aram Modi MD PCP - General Internal Medicine 02/18/23 Ravinder Jose MD Specialist Cardiology 02/11/23 Fabien Burgos NP Specialist Cardiology 02/11/23 Angelica Price MD [address] [facility] [address] [place] [address] Specialist Cardiology 03/11/23 documented as of this encounter
--- OUTSIDE RECORDS SUMMARY | 2024-07-30 13:40 | XMS_ITS | Encounter Summary ---
Author Organization [facility] Address [address] [place] [address] Care Team Providers Care Stock Manager Name Role Phone Gael Coffman MD Primary Care Provider Unavail able Aram Modi MD Primary Care Provider Yanet Gilmore Pcp Primary Care Provider UnavailRavinder Wallace MD Unavailable [phone] Fabien Burgos NP Unavailable [phone] Aram Modi MD Primary Care Provider Angelica Cardozo MD Unavailable [phone] Encounter Details Date Type Department Care Team Description 05/04/2014 Dairy Quality Assurance Officer Report Medical Records [address] [place] [address] Ricky Douglas Social History Tobacco Use Types [...] filedocumented in this encounter Care Teams Stock Manager Relationship Specialty Start Date End Date Gael Coffman MD PCP - General 06/10/01 04/21/17 Aram Modi MD PCP - General Internal Medicine 04/22/17 09/10/20 [facility], Pcp PCP - General Internal Medicine 09/11/20 02/17/23 Aram Modi MD PCP - General Internal Medicine 02/18/23 Ravinder Jose MD Specialist Cardiology 02/11/23 Fabien Burgos NP Specialist Cardiology 02/11/23 Angelica Price MD [address] [place] [address] Specialist Cardiology 03/11/23 documented as of this encounter
--- OUTSIDE RECORDS SUMMARY | 2024-07-30 13:40 | XMS_ITS | Clinical Summary ---
Author Organization [facility] Address [address] [address] Phone Care Team Providers Care Brand Protection Manager Name Role Phone Aram Modi MD Primary Care Provider [phone] Allergies Active Allergy Reactions Criticality Noted Date [...] 04/09/2023 Overview (04/09/2023): Done on 02/03/2023 at [facility] indications:CHF Multiple premature ventricular complexes 021 [...] sleep apnea 03/29/2014 04/09/20 23 Overview (04/09/2023): [facility] Home Polysomnogram: Date 02/13/2017; AHI 12, Unclassified [...] [facility] [address] [place] [phone] Abhishek Haynes MD Stage 3a chronic kidney [...] [facility] [address] [address] Abhishek Haynes MD [address] [phone] Health Maintenance Due Date Last Done Comments Influenza Vaccine (#1) 2024 2, 03/06/2021, 02/14/2020, Additional history exists Pneumococcal Vaccine: 65+ Years Completed 11/02/2014, 06/07/2014, 09/16/2013, Additional history exists Hepatitis B Vaccine Aged Out No longe r eligible based on patient's age to complete this topic Insurance MEDICARE [facility] MEDICARE [facility] Care Teams Brand Protection Manager Relationship Specialty Start Date End Date Aram Modi MD [address] [place] [address] PCP - General Internal Medicine 04/09/23
--- OUTSIDE RECORDS SUMMARY | 2024-07-30 13:40 | XMS_ITS | Encounter Summary ---
Author Organization [facility] Address [address] [place] [address] Care Team Providers Care Supervising Nurse Name Role Phone Gael Coffman MD Primary Care Provider Unavail able Aram Modi MD Primary Care Provider Yanet Gilmore Pcp Primary Care Provider UnavailRavinder Wallace MD Unavailable [phone] Fabien Burgos NP Unavailable [phone] Aram Modi MD Primary Care Provider Angelica Cardozo MD Unavailable [phone] Encounter Details Date Type Department Care Team Description 07/06/2014 Dynamite Packing Machine Operator Report Medical Records [address] [place] [address] [facility] [place] Social History Tobacco Use Types Packs/Day [...] on filedocumented in this encounter Care Teams Supervising Nurse Relationship Specialty Start Date End Date Gael Coffman MD PCP - General 06/10/01 04/21/17 Aram Modi MD PCP - General Internal Medicine 04/22/17 09/10/20 [facility], Pcp PCP - General Internal Medicine 09/11/20 02/17/23 Aram Modi MD PCP - General Internal Medicine 02/18/23 Ravinder Jose MD Specialist Cardiology 02/11/23 Fabien Burgos NP Specialist Cardiology 02/11/23 Angelica Price MD [address] [place] [address] Specialist Cardiology 03/11/23 documented as of this encounter
--- OUTSIDE RECORDS SUMMARY | 2024-07-30 13:40 | XMS_ITS | Encounter Summary ---
Author Organization [facility] Address [address] [place] [address] Care Team Providers Care Systems Security Analyst Name Role Phone Aram Modi MD Primary Care Provider [phone] Reason for Visit * Reason Onset Date Comments Medical Records 06/16/2024 Encounter Details Date Type Department Care Team (Late st Contact Info) Description 06/16/2024 Telephone [facility] Cardiology [facility] [address] [place] [phone] Aram Modi MD [address] [address] Medical Records Social History Tobacco [...] PM EST Faxed 06/30/2023 Echo report to [facility] Att: Clarisa at [phone] on 06/16/2024. documented in this encounter Plan of Treatment Upcoming Encounters Date Type Department Care Team (Late st Contact Info) Description 10/28/2024 9:10 AM EDT Office Visit [facility] Cardiology [facility] [address] [place] [address] Fabien Burgos NP [address] [place] [address] [address] [place] [address] 04/20/2025 8:00 AM EST Ancillary Procedure [facility] [address] [place] [address] documented as of this encounter Visit Diagnoses Not on filedocumented in this encounter Care Teams Systems Security Analyst Relationship Specialty Start Date End Date Aram Modi MD [address] [address] PCP - General 04/22/17 documented as of this encounter
--- OUTSIDE RECORDS SUMMARY | 2024-07-30 13:40 | XMS_ITS | Encounter Summary ---
Author Organization [facility] Address [address] [place] [address] Care Team Providers Care Malter Operator Name Role Phone Aram Modi MD Primary Care Provider Yanet Gilmore Pcp Primary Care Provider [facility] Ravinder Salvador MD Unavailable [phone] Fabien Burgos NP Unavailable [phone] Aram Modi MD Primary Care Provider Angelica Cardozo MD Unavailable [phone] Reason for Visit * Reason Onset Date Comments Faxed Refill 08/09/2020 Encounter Details Date Type Department Care Team Description 08/09/2020 Refill Medicine/Pediatrics - [address] [address] Aram Modi MD Faxed Refill Social History [...] Miscellaneous Notes * Telephone Encounter - Aram Mdoi MD - 08/09/2020 1:20 PM EDT Scripts [...] / Plan: [place] / Product Type: MEDICARE [id number] documented in this encounter Plan of Treatment Not on file documented as of this encounter Visit Diagnoses Not on filedocumented in this encounter Care Teams Malter Operator Relationship Specialty Start Date End Date Aram Modi MD PCP - General Internal Medicine 04/22/17 09/10/20 [facility] PCP - General Internal Medicine 09/11/20 02/17/23 Aram Modi MD PCP - General Internal Medicine 02/18/23 Ravinder Jose MD Specialist Cardiology 02/11/23 Fabien Burgos NP Specialist Cardiology 02/11/23 Angelica Price MD [address] [place] [address] Specialist Cardiology 03/11/23 documented as of this encounter
--- OUTSIDE RECORDS SUMMARY | 2024-07-30 13:40 | XMS_ITS | Encounter Summary ---
Author Organization [facility] Address [address] [place] [address] Care Team Providers Care Photolithographic Stripper Name Role Phone Aram Modi MD Primary Care Provider Yanet Gilmore Pcp Primary Care Provider UnavailRavinder Wallace MD Unavailable [phone] Fabien Burgos NP Unavailable [phone] Aram Modi MD Primary Care Provider Angelica Cardozo MD Unavailable [phone] Encounter Details Date Type Department Care Team Description 12/04/2018 Lab Support Service Tech Report Medical Records [address] [place] [address] Abstract, Provider Social History Tobacco Use Types [...] on filedocumented in this encounter Care Teams Photolithographic Stripper Relationship Specialty Start Date End Date Aram Modi MD PCP - General Internal Medicine 04/22/17 09/10/20 [facility], Pcp PCP - General Internal Medicine 09/11/20 02/17/23 Aram Modi MD PCP - General Internal Medicine 02/18/23 Ravinder Jose MD Specialist Cardiology 02/11/23 Fabien Burgos NP Specialist Cardiology 02/11/23 Angelica Price MD [address] [address] Specialist Cardiology 03/11/23 documented as of this encounter
--- OUTSIDE RECORDS SUMMARY | 2024-07-30 13:40 | XMS_ITS | Encounter Summary ---
Author Organization [facility] Address [address] [place] [address] Care Team Providers Care Procurement Internship Name Role Phone Aram Modi MD Primary Care Provider Unakuldeep Gilmore, Pcp Primary Care Provider [facility] Ravinder Salvador MD Unavailable [phone] Fabien Burgos NP Unavailable [phone] Aram Modi MD Primary Care Provider Unava Angelica Russell MD Unavailable [phone] Encounter Details Date Type Department Care Team Description 06/01/2019 Pt. Non Urgent Medic al Question Physiatry - [place] [address] [place] [address] Dallas Hamilton DO Social History Tobacco Use [...] M.A. - 06/01/2019 12:30 PM ESTFrom: Cy Velez To: Dallas Hamilton DO Sent: 06/01/2019 11:59 [...] on filedocumented in this encounter Care Teams Procurement Internship Relationship Specialty Start Date End Date Aram Modi MD PCP - General Internal Medicine 04/22/17 09/10/20 [facility] PCP - General Internal Medicine 09/11/20 02/17/23 Aram Modi MD PCP - General Internal Medicine 02/18/23 Ravinder Jose MD Specialist Cardiology 02/11/23 Fabien Burgos NP Specialist Cardiology 02/11/23 Angelica Price MD [address] [place] [address] Specialist Cardiology 03/11/23 documented as of this encounter
--- OUTSIDE RECORDS SUMMARY | 2024-07-30 13:40 | XMS_ITS | Encounter Summary ---
Author Organization [facility] Address [address] [place] [address] Care Team Providers Care Product Development Worker Name Role Phone Gael Coffman MD Primary Care Provider Unavail able Aram Modi MD Primary Care Provider Yanet Gilmore Pcp Primary Care Provider UnavailRavinder Wallace MD Unavailable [phone] Fabien Burgos NP Unavailable [phone] Aram Modi MD Primary Care Provider Angelica Cardozo MD Unavailable [phone] Encounter Details Date Type Department Care Team Description 10/29/2016 Walk In Clinic Visit Medical Records [address] [place] [address] Abstract, Provider Social History Tobacco Use Types [...] filedocumented in this encounter Care Teams Product Development Worker Relationship Specialty Start Date End Date Gael Coffman MD PCP - General 06/10/01 04/21/17 Aram Modi MD PCP - General Internal Medicine 04/22/17 09/10/20 [facility], Pcp PCP - General Internal Medicine 09/11/20 02/17/23 Aram Modi MD PCP - General Internal Medicine 02/18/23 Ravinder Jose MD Specialist Cardiology 02/11/23 Fabien Burgos NP Specialist Cardiology 02/11/23 Angelica Price MD [address] [place] [address] Specialist Cardiology 03/11/23 documented as of this encounter
--- OUTSIDE RECORDS SUMMARY | 2024-07-30 13:40 | XMS_ITS | Encounter Summary ---
Author Organization [facility] Address [address] [place] [address] Care Team Providers Care Enrollment Services Dean Name Role Phone Gael Coffman MD Primary Care Provider Unavail able Aram Modi MD Primary Care Provider Yanet Gilmore Pcp Primary Care Provider UnavailRavinder Wallace MD Unavailable Fabien Burgos NP Unavailable [phone] Aram Modi MD Primary Care Provider Angelica Cardozo MD Unavailable Encounter Details Date Type Department Care Team Description 07/17/2016 Pt. Non Urgent Medical Question Adult Medicine B - [place] [address] [place] [address] Gael Coffman MD Social History Tobacco Use [...] M.A. - 07/17/2016 4:40 PM ESTFrom: Cy Velez To: Gael Coffman MD Sent: 07/17/2016 4:40 PM EST Subject: RX Help Dear Dr. Coffman In continuing to find relief for the pricing of my med [facility]. I have reached out to a company called [employer] [facility]. They will be sending you notice for [...] on filedocumented in this encounter Care Teams Enrollment Services Dean Relationship Specialty Start Date End Date Gael Coffman MD PCP - General 06/10/01 04/21/17 Aram Modi MD PCP - General Internal Medicine 04/22/17 09/10/20 [facility] PCP - General Internal Medicine 09/11/20 02/17/23 Aram Modi MD PCP - General Internal Medicine 02/18/23 Ravinder Jose MD Specialist Cardiology 02/11/23 Fabien Burgos NP Specialist Cardiology 02/11/23 Angelica Price MD [address] [place] [address] Specialist Cardiology 03/11/23 documented as of this encounter
--- OUTSIDE RECORDS SUMMARY | 2024-07-30 13:40 | XMS_ITS | Encounter Summary ---
Author Organization [facility] Address [address] [place] [address] Care Team Providers Care Heavy Forger Name Role Phone Gael Coffman MD Primary Care Provider Unavail able Aram Modi MD Primary Care Provider Yanet Gilmore Pcp Primary Care Provider UnavailRavinder Wallace MD Unavailable [phone] Fabien Burgos NP Unavailable [phone] Aram Modi MD Primary Care Provider Angelica Cardozo MD Unavailable [phone] Encounter Details Date Type Department Care Team Description 07/07/2014 Pt. Non Urgent Medical Question Adult Medicine B - [place] [address] [place] [address] Gael Coffman MD Social History Tobacco Use [...] MD Sent: 07/07/2014 9:57 AM EST Subject: [facility] Dear Dr. Coffman Because I couldn't get an earlier appointment with Dr. Solomon Shipley, I went to Dr Ghazala Fisher at [facility]. I have a follow up visit in [...] on filedocumented in this encounter Care Teams Heavy Forger Relationship Specialty Start Date End Date Gael Coffman MD PCP - General 06/10/01 04/21/17 Aram Modi MD PCP - General Internal Medicine 04/22/17 09/10/20 [facility], Pcp PCP - General Internal Medicine 09/11/20 02/17/23 Aram Modi MD PCP - General Internal Medicine 02/18/23 Ravinder Jose MD Specialist Cardiology 02/11/23 Fabien Burgos NP Specialist Cardiology 02/11/23 Angelica Price MD [address] [place] [address] Specialist Cardiology 03/11/23 documented as of this encounter
--- OUTSIDE RECORDS SUMMARY | 2024-07-30 13:40 | XMS_ITS | Encounter Summary ---
Author Organization [facility] Address [address] [place] [address] Care Team Providers Care Chief Controller Station Name Role Phone Gael Coffman MD Primary Care Provider Unavail able Aram Modi MD Primary Care Provider Luis E Parker Primary Care Provider UnavailRavinder Wallace MD Unavailable [phone] Fabien Burgos NP Unavailable [phone] Aram Modi MD Primary Care Provider Angelica Cardozo MD Unavailable [phone] Encounter Details Date Type Department Care Team Description 11/28/2016 [facility] Medical Records [address] [place] [address] Manolo Hurtado MD Social History Tobacco Use [...] filedocumented in this encounter Care Teams Chief Controller Station Relationship Specialty Start Date End Date Gael Coffman MD PCP - General 06/10/01 04/21/17 Aram Modi MD PCP - General Internal Medicine 04/22/17 09/10/20 [facility], Pcp PCP - General Internal Medicine 09/11/20 02/17/23 Aram Modi MD PCP - General Internal Medicine 02/18/23 Ravinder Jose MD Specialist Cardiology 02/11/23 Fabien Burgos NP Specialist Cardiology 02/11/23 Angelica Price MD [address] [place] [address] Specialist Cardiology 03/11/23 documented as of this encounter
--- OUTSIDE RECORDS SUMMARY | 2024-07-30 13:40 | XMS_ITS | Encounter Summary ---
Author Organization [facility] Address [address] [place] [address] Care Team Providers Care Seismograph Recorder Name Role Phone Aram Modi MD Primary Care Provider Yanet Gilmore Pcp Primary Care Provider UnavailRavinder Wallace MD Unavailable [phone] Fabien Burgos NP Unavailable [phone] Aram Modi MD Primary Care Provider Angelica Cardozo MD Unavailable Encounter Details Date Type Department Care Team Description 06/25/2019 Release of Information Medical Records [address] [place] [address] Abstract, Provider Social History Tobacco Use Types [...] on filedocumented in this encounter Care Teams Seismograph Recorder Relationship Specialty Start Date End Date Aram Modi MD PCP - General Internal Medicine 04/22/17 09/10/20 [facility], Pcp PCP - General Internal Medicine 09/11/20 02/17/23 Aram Modi MD PCP - General Internal Medicine 02/18/23 Ravinder Jose MD Specialist Cardiology 02/11/23 Fabien Burgos NP Specialist Cardiology 02/11/23 Angelica Price MD [address] [address] Specialist Cardiology 03/11/23 documented as of this encounter
--- OUTSIDE RECORDS SUMMARY | 2024-07-30 13:40 | XMS_ITS | Encounter Summary ---
Author Organization [facility] Address [address] [place] [address] Care Team Providers Care Rivet Hammer Machine Operator Name Role Phone Aram Modi MD Primary Care Provider Unakuldeep Gilmore Pcp [facility] Ravinder Salvador MD Unavailable [phone] Fabien Burgos NP Unavailable [phone] Aram Modi MD Primary Care Provider Unava Angelica Russell MD Unavailable [phone] Encounter Details Date Type Department Care Team Description 07/29/2019 Pt. Non Urgent Medic al Question Medicine/Pediatrics - [address] [address] Aram Modi MD Social History Tobacco Use [...] on filedocumented in this encounter Care Teams Rivet Hammer Machine Operator Relationship Specialty Start Date End Date Aram Modi MD PCP - General Internal Medicine 04/22/17 09/10/20 [facility] PCP - General Internal Medicine 09/11/20 02/17/23 Aram Modi MD PCP - General Internal Medicine 02/18/23 Ravinder Jose MD Specialist Cardiology 02/11/23 Fabien Burgos NP Specialist Cardiology 02/11/23 Angelica Price MD [address] [place] [address] Specialist Cardiology 03/11/23 documented as of this encounter
--- OUTSIDE RECORDS SUMMARY | 2024-07-30 13:40 | XMS_ITS | Encounter Summary ---
Author Organization [facility] Address [address] [place] [address] Care Team Providers Care Butter Production Supervisor Name Role Phone Gael Coffman MD Primary Care Provider Unavail able Aram Modi MD Primary Care Provider Yanet Gilmore Pcp Primary Care Provider UnavailRavinder Wallace MD Unavailable [phone] Fabien Burgos NP Unavailable [phone] Aram Modi MD Primary Care Provider Angelica Cardozo MD Unavailable [phone] Encounter Details Date Type Department Care Team Description 01/19/2014 [facility] Medical Records [address] [place] [address] Guanaco Mederos MD Social History Tobacco Use [...] on filedocumented in this encounter Care Teams Butter Production Supervisor Relationship Specialty Start Date End Date Gael Coffman MD PCP - General 06/10/01 04/21/17 Aram Modi MD PCP - General Internal Medicine 04/22/17 09/10/20 [facility], Pcp PCP - General Internal Medicine 09/11/20 02/17/23 Aram Modi MD PCP - General Internal Medicine 02/18/23 Ravinder Jose MD Specialist Cardiology 02/11/23 Fabien Burgos NP Specialist Cardiology 02/11/23 Angelica Price MD [address] [place] [address] Specialist Cardiology 03/11/23 documented as of this encounter
--- OUTSIDE RECORDS SUMMARY | 2024-07-30 13:40 | XMS_ITS | Encounter Summary ---
Author Organization [facility] Address [address] [place] [address] Care Team Providers Care Adjunct Instructor Chemistry Name Role Phone Gael Coffman MD Primary Care Provider Unavail able Aram Modi MD Primary Care Provider Luis E Parker Primary Care Provider UnavailRavinder Wallace MD Unavailable [phone] Fabien Burgos NP Unavailable [phone] Aram Modi MD Primary Care Provider Angelica Cardozo MD Unavailable [phone] Encounter Details Date Type Department Care Team Description 11/16/2016 [facility] Medical Records [address] [place] [address] Manolo Hurtado MD Social History Tobacco Use [...] on filedocumented in this encounter Care Teams Adjunct Instructor Chemistry Relationship Specialty Start Date End Date Gael Coffman MD PCP - General 06/10/01 04/21/17 Aram Modi MD PCP - General Internal Medicine 04/22/17 09/10/20 [facility], Pcp PCP - General Internal Medicine 09/11/20 02/17/23 Aram Modi MD PCP - General Internal Medicine 02/18/23 Ravinder Jose MD Specialist Cardiology 02/11/23 Fabien Burgos NP Specialist Cardiology 02/11/23 Angelica Price MD [address] [place] [address] Specialist Cardiology 03/11/23 documented as of this encounter
--- OUTSIDE RECORDS SUMMARY | 2024-07-30 13:40 | XMS_ITS | Encounter Summary ---
Author Organization [facility] Address [address] [place] [address] Care Team Providers Care Ict Sales Assistant Name Role Phone Aram Modi MD Primary Care Provider Yanet Gilmore Pcp Primary [facility] Ravinder Salvador MD Unavailable [phone] Fabien Burgos NP Unavailable [phone] Aram Modi MD Primary Care Provider Unava Angelica Russell MD Unavailable [phone] Encounter Details Date Type Department Care Team Description 07/25/2020 Orders Only Medicine/Pediatrics - [address] [phone] Aram Modi MD Stage 3 chronic kidney [...] Primary documented in this encounter Care Teams Ict Sales Assistant Relationship Specialty Start Date End Date Aram Modi MD PCP - General Internal Medicine 04/22/17 09/10/20 [facility] PCP - General Internal Medicine 09/11/20 02/17/23 Aram Modi MD PCP - General Internal Medicine 02/18/23 Ravinder Jose MD Specialist Cardiology 02/11/23 Fabien Burgos NP Specialist Cardiology 02/11/23 Angelica Price MD [address] [place] [address] Specialist Cardiology 03/11/23 documented as of this encounter
--- OUTSIDE RECORDS SUMMARY | 2024-07-30 13:40 | XMS_ITS | Encounter Summary ---
Author Organization [facility] Address [address] [place] [address] Care Team Providers Care Tempering Kiln Tender Name Role Phone Gael Coffman MD Primary Care Provider Unavail able Aram Modi MD Primary Care Provider Luis E Parker Primary Care Provider UnavailRavinder Wallace MD Unavailable [phone] Fabien Burgos NP Unavailable [phone] Aram Modi MD Primary Care Provider Angelica Cardozo MD Unavailable [phone] Encounter Details Date Type Department Care Team Description 11/16/2016 [facility] Medical Records [address] [place] [address] Manolo Hurtado MD Social History Tobacco Use [...] on filedocumented in this encounter Care Teams Tempering Kiln Tender Relationship Specialty Start Date End Date Gael Coffman MD PCP - General 06/10/01 04/21/17 Aram Modi MD PCP - General Internal Medicine 04/22/17 09/10/20 [facility], Pcp PCP - General Internal Medicine 09/11/20 02/17/23 Aram Modi MD PCP - General Internal Medicine 02/18/23 Ravinder Jose MD Specialist Cardiology 02/11/23 Faiben Burgos NP Specialist Cardiology 02/11/23 Angelica Price MD [address] [place] [address] Specialist Cardiology 03/11/23 documented as of this encounter
--- OUTSIDE RECORDS SUMMARY | 2024-07-30 13:40 | XMS_ITS | Encounter Summary ---
Author Organization [facility] Address [address] [place] [address] Care Team Providers Care Big Machine Consultant Name Role Phone Gael Coffman MD Primary Care Provider Unavail able Aram Modi MD Primary Care Provider Luis E Parker Primary Care Provider UnavailRavinder Wallace MD Unavailable [phone] Fabien Burgos NP Unavailable [phone] Aram Modi MD Primary Care Provider Angelica Cardozo MD Unavailable [phone] Encounter Details Date Type Department Care Team Description 12/03/2012 [facility] Report Medical Records [address] [place] [id number] Scott Souza Social History Tobacco Use Types [...] on filedocumented in this encounter Care Teams Big Machine Consultant Relationship Specialty Start Date End Date Gael Coffman MD PCP - General 06/10/01 04/21/17 Aram Modi MD PCP - General Internal Medicine 04/22/17 09/10/20 [facility], Pcp PCP - General Internal Medicine 09/11/20 02/17/23 Aram Modi MD PCP - General Internal Medicine 02/18/23 Ravinder Jose MD Specialist Cardiology 02/11/23 Fabien Burgos NP Specialist Cardiology 02/11/23 Angelica Price MD [address] [place] [address] Specialist Cardiology 03/11/23 documented as of this encounter
--- OUTSIDE RECORDS SUMMARY | 2024-07-30 13:40 | XMS_ITS | Encounter Summary ---
Author Organization [facility] Address [address] [place] [address] Care Team Providers Care Laboratory Monitor Name Role Phone Gael Coffman MD Primary Care Provider Unavail able Aram Modi MD Primary Care Provider Luis E Parker Primary Care Provider UnavailRavinder Wallace MD Unavailable [phone] Fabien Burgos NP Unavailable [phone] Aram Modi MD Primary Care Provider Angelica Cardozo MD Unavailable Encounter Details Date Type Department Care Team Description 12/13/2016 Armored Cable Machine Operator Report Medical Records [address] [place] [address] Abstract, Provider Social History Tobacco Use Types [...] on filedocumented in this encounter Care Teams Laboratory Monitor Relationship Specialty Start Date End Date Gael Coffman MD PCP - General 06/10/01 04/21/17 Aram Modi MD PCP - General Internal Medicine 04/22/17 09/10/20 [facility], Pcp PCP - General Internal Medicine 09/11/20 02/17/23 Aram Modi MD PCP - General Internal Medicine 02/18/23 Ravinder Jose MD Specialist Cardiology 02/11/23 Fabien Burgos NP Specialist Cardiology 02/11/23 Angelica Price MD [address] [place] [address] Specialist Cardiology 03/11/23 documented as of this encounter
--- OUTSIDE RECORDS SUMMARY | 2024-07-30 13:40 | XMS_ITS | Encounter Summary ---
Author Organization [facility] Address [address] [place] [address] Care Team Providers Care Chiller Operator Name Role Phone Gael Coffman MD Primary Care Provider Unavail able Aram Modi MD Primary Care Provider Yanet Gilmore Pcp Primary Care Provider UnavailRavinder Wallace MD Unavailable [phone] Fabien Burgos NP Unavailable [phone] Aram oMdi MD Primary Care Provider Angelica Cardozo MD Unavailable [phone] Reason for Visit * Reason Onset Date Comments Faxed Refill 11/13/2016 Encounter Details Date Type Department Care Team Description 11/13/2016 Telephone Adult Medicine [facility] [address] [place] [address] Gael Coffman MD Faxed Refill Social History [...] / Plan: [place] / Product Type: MEDICARE [id number] documented in this encounter Plan of Treatment Not on file documented as of this encounter Visit Diagnoses Not on filedocumented in this encounter Care Teams Chiller Operator Relationship Specialty Start Date End Date Gael Coffman MD PCP - General 06/10/01 04/21/17 Aram Modi MD PCP - General Internal Medicine 04/22/17 09/10/20 [facility], Pcp PCP - General Internal Medicine 09/11/20 02/17/23 Aram Modi MD PCP - General Internal Medicine 02/18/23 Ravinder Jose MD Specialist Cardiology 02/11/23 Fabien Burgos NP Specialist Cardiology 02/11/23 Angelica Price MD [address] [place] [address] Specialist Cardiology 03/11/23 documented as of this encounter
--- OUTSIDE RECORDS SUMMARY | 2024-07-30 13:40 | XMS_ITS | Encounter Summary ---
Author Organization [facility] Address [address] [place] [address] Care Team Providers Care Supervisor Pre Wave Name Role Phone Gael Coffman MD Primary Care Provider Unavail able Aram Modi MD Primary Care Provider Yanet Gilmore Pcp Primary Care Provider UnavailRavinder Wallace MD Unavailable Fabien Burgos NP Unavailable [phone] Aram Modi MD Primary Care Provider Angelica Cardozo MD Unavailable Encounter Details Date Type Department Care Team Description 04/21/2014 Night Triage Doc Medical Records [address] [place] [address] Abstract, Provider Social History Tobacco Use Types [...] filedocumented in this encounter Care Teams Supervisor Pre Wave Relationship Specialty Start Date End Date Gael Coffman MD PCP - General 06/10/01 04/21/17 Aarm oMdi MD PCP - General Internal Medicine 04/22/17 09/10/20 [facility], Pcp PCP - General Internal Medicine 09/11/20 02/17/23 Aram Modi MD PCP - General Internal Medicine 02/18/23 Ravinder Jose MD Specialist Cardiology 02/11/23 Fabien Burgos NP Specialist Cardiology 02/11/23 Angelica Price MD [address] [place] [address] Specialist Cardiology 03/11/23 documented as of this encounter
--- OUTSIDE RECORDS SUMMARY | 2024-07-30 13:40 | XMS_ITS | Encounter Summary ---
Author Organization [facility] Address [address] [place] [address] Care Team Providers Care Public Records Researcher Name Role Phone Gael Coffman MD Primary Care Provider Unavail able Aram Modi MD Primary Care Provider Luis E Parker Primary Care Provider UnavailRavinder Wallace MD Unavailable [phone] Fabien Burgos NP Unavailable [phone] Aram Modi MD Primary Care Provider Angelica Cardozo MD Unavailable [phone] Encounter Details Date Type Department Care Team Description 09/16/2013 Business Doc Medical Records [address] [place] [address] Abstract, Provider Social History Tobacco Use Types [...] filedocumented in this encounter Care Teams Public Records Researcher Relationship Specialty Start Date End Date Gael Coffman MD PCP - General 06/10/01 04/21/17 Aram Modi MD PCP - General Internal Medicine 04/22/17 09/10/20 [facility], Pcp PCP - General Internal Medicine 09/11/20 02/17/23 Aram Modi MD PCP - General Internal Medicine 02/18/23 Ravinder Jose MD Specialist Cardiology 02/11/23 Fabien Burgos NP Specialist Cardiology 02/11/23 Angelica Price MD [address] [place] [address] Specialist Cardiology 03/11/23 documented as of this encounter
--- OUTSIDE RECORDS SUMMARY | 2024-07-30 13:40 | XMS_ITS | Encounter Summary ---
Author Organization [facility] Address [address] [place] [address] Care Team Providers Care Supervisor [address] Name Role Phone Gael Coffman MD Primary Care Provider Unavail able Aram Modi MD Primary Care Provider Yanet Gilmore Pcp Primary Care Provider UnavailRavinder Wallace MD Unavailable [phone] Fabien Burgos NP Unavailable [phone] Aram Modi MD Primary Care Provider Angelica Cardozo MD Unavailable [phone] Encounter Details Date Type Department Care Team Description 07/13/2016 Pt. Non Urgent Medical Question Adult Medicine B - [place] [address] [place] [address] Gael Coffman MD Social History Tobacco Use [...] Progress Notes * Sadie Collins M.A. - 07/15/2016 8:20 AM ESTFrom: Cy Velez To: Gael Coffman MD Sent: 07/13/2016 10:37 PM EST Subject: Over priced pharmaceuticals Ks Dr. Coffman Really need your help. Unfortunately, the cost for my BP medication Inspra (eplerenone) from [employer] absolutely NUTS!!! I require a refill for the new year and 180 quantity 50 mg is $795.00. after the deductible is met,its still approx. $680.00 This is thru [facility] who appears to be the highest cost supplier. In doing some research thereis a generic equivalent at a much reduced cost. Further, there is a coupon that is available on line from [employer] and it lists Inspra at the [employer] [facility]. for $258.96 [facility] is also listed here at three times the cost. I would like to ask if you could send me a script for this medication and at least I can try. I would really appreciate your help in this matter. Thank you, Shan Velez documented in this encounter Plan of Treatment Not on file documented as of this encounter Visit Diagnoses Not on filedocumented in this encounter Care Teams Supervisor [address] Relationship Specialty Start Date End Date Gael Coffman MD PCP - General 06/10/01 04/21/17 Aram Modi MD PCP - General Internal Medicine 04/22/17 09/10/20 [facility], Pcp PCP - General Internal Medicine 09/11/20 02/17/23 Aram Modi MD PCP - General Internal Medicine 02/18/23 Ravinder Jose MD Specialist Cardiology 02/11/23 Fabien Burgos NP Specialist Cardiology 02/11/23 Agnelica Price MD [address] [facility] [address] [place] [address] Specialist Cardiology 03/11/23 documented as of this encounter
--- OUTSIDE RECORDS SUMMARY | 2024-07-30 13:40 | XMS_ITS | Encounter Summary ---
Author Organization [facility] Address [address] [place] [address] Care Team Providers Care Brand Strategy Manager Name Role Phone Gael Coffman MD Primary Care Provider Unavail able Aram Modi MD Primary Care Provider Yanet lopez [facility] Pcp Primary Care Provider UnavailRavinder Wallace MD Unavailable [phone] Fabien Burgos NP Unavailable [phone] Aram Modi MD Primary Care Provider Angelica Cardozo MD Unavailable [phone] Encounter Details Date Type Department Care Team Description 02/19/2017 Orders Only Medical Records [address] [place] [address] Gael Coffman MD Social History Tobacco Use [...] Results * OUTSIDE SLEEP STUDY (02/13/2017) Gael Coffman MD PULMONOLOGY documented in this encounter Visit Diagnoses Not on filedocumented in this encounter Care Teams Brand Strategy Manager Relationship Specialty Start Date End Date Gael Coffman MD PCP - General 06/10/01 04/21/17 Aram Modi MD PCP - General Internal Medicine 04/22/17 09/10/20 [facility] PCP - General Internal Medicine 09/11/20 02/17/23 Aram Modi MD PCP - General Internal Medicine 02/18/23 Ravinder Jose MD Specialist Cardiology 02/11/23 Fabien Burgos NP Specialist Cardiology 02/11/23 Angelica Price MD [address] [place] [address] Specialist Cardiology 03/11/23 documented as of this encounter
--- OUTSIDE RECORDS SUMMARY | 2024-07-30 13:40 | XMS_ITS | Encounter Summary ---
Author Organization [facility] Address [address] [place] [address] Care Team Providers Care Dip Unit Operator Name Role Phone Gael Coffman MD Primary Care Provider Unavail able Aram Modi MD Primary Care Provider Yanet Gilmore Pcp Primary Care Provider UnavailRavinder Wallace MD Unavailable [phone] Fabien Burgos NP Unavailable [phone] Aram Modi MD Primary Care Provider Angelica Cardozo MD Unavailable [phone] Reason for Visit * Reason Onset Date Comments other 07/28/2014 Encounter Details Date Type Department Care Team Description 07/28/2014 Pt. Non Urgent Medical Question Adult Medicine - [place] [address] [place] [address] Gael Coffman MD Social History Tobacco Use [...] [email or web address].NDaisy - 07/28/2014 8:24 AM EDTFrom: Cy Velez To: Gael Coffman MD Sent: 07/28/2014 8:20 AM EDT Subject: [facility] Visit Dear Dr. Coffman, I am faxing my report from Dr. Ghazala Fisher of [facility]. Please note that the one area that [...] on filedocumented in this encounter Care Teams Dip Unit Operator Relationship Specialty Start Date End Date Gael Coffman MD PCP - General 06/10/01 04/21/17 Aram Modi MD PCP - General Internal Medicine 04/22/17 09/10/20 [facility] PCP - General Internal Medicine 09/11/20 02/17/23 Aram Modi MD PCP - General Internal Medicine 02/18/23 Ravinder Jose MD Specialist Cardiology 02/11/23 Fabien Burgos NP Specialist Cardiology 02/11/23 Angelica Price MD [address] [address] Specialist Cardiology 03/11/23 documented as of this encounter
--- OUTSIDE RECORDS SUMMARY | 2024-07-30 13:40 | XMS_ITS | Encounter Summary ---
Author Organization [facility] Address [address] [place] [address] Care Team Providers Care Help Desk Support Specialist Name Role Phone Gael Coffman MD Primary Care Provider Unavail able Aram Modi MD Primary Care Provider Yanet Gilmore Pcp Primary Care Provider UnavailRavinder Wallace MD Unavailable Fabien Burgos NP Unavailable Aram Modi MD Primary Care Provider Angelica Cardozo MD Unavailable [phone] Encounter Details Date Type Department Care Team Description 06/07/2014 [facility] Medical Records [address] [place] [address] Danielle Santiago MD Social History Tobacco Use [...] on filedocumented in this encounter Care Teams Help Desk Support Specialist Relationship Specialty Start Date End Date Gael Coffman MD PCP - General 06/10/01 04/21/17 Aram Modi MD PCP - General Internal Medicine 04/22/17 09/10/20 [facility] PCP - General Internal Medicine 09/11/20 02/17/23 Aram Modi MD PCP - General Internal Medicine 02/18/23 Ravinder Jose MD Specialist Cardiology 02/11/23 Fabien Burgos NP Specialist Cardiology 02/11/23 Angelica Price MD [address] [place] [address] Specialist Cardiology 03/11/23 documented as of this encounter
--- OUTSIDE RECORDS SUMMARY | 2024-07-30 13:40 | XMS_ITS | Encounter Summary ---
Author Organization [facility] Address [address] [place] [address] Care Team Providers Care Meat Blender Name Role Phone Gael Coffman MD Primary Care Provider Unavail able Aram Modi MD Primary Care Provider Yanet Gilmore Pcp Primary Care Provider UnavailRavinder Wallace MD Unavailable [phone] Fabien Burgos NP Unavailable [phone] Aram Modi MD Primary Care Provider Angelica Cardozo MD Unavailable [phone] Encounter Details Date Type Department Care Team Description 08/01/2016 Wellness Visit Medical Records [address] [place] [address] Gael Coffman MD Social History Tobacco Use [...] on filedocumented in this encounter Care Teams Meat Blender Relationship Specialty Start Date End Date Gael Coffman MD PCP - General 06/10/01 04/21/17 Aram Modi MD PCP - General Internal Medicine 04/22/17 09/10/20 [facility], Pcp PCP - General Internal Medicine 09/11/20 02/17/23 Aram Modi MD PCP - General Internal Medicine 02/18/23 Ravinder Jose MD Specialist Cardiology 02/11/23 Fabien Burgos NP Specialist Cardiology 02/11/23 Angelica Price MD [address] [place] [address] Specialist Cardiology 03/11/23 documented as of this encounter
--- OUTSIDE RECORDS SUMMARY | 2024-07-30 13:40 | XMS_ITS | Encounter Summary ---
Author Organization [facility] Address [address] [place] [address] Care Team Providers Care Pipe Fitter Marine Name Role Phone Gael Coffman MD Primary Care Provider Unavail able Aram Modi MD Primary Care Provider Yanet Gilmore Pcp Primary Care Provider UnavailRavinder Wallace MD Unavailable [phone] Fabien Burgos NP Unavailable [phone] Aram Modi MD Primary Care Provider Angelica Cardozo MD Unavailable [phone] Reason for Visit * Reason Onset Date Comments TEST RESULTS 06/09/2014 Encounter Details Date Type Department Care Team Description 06/09/2014 Pt. Non Urgent Medical Question Adult Medicine - [place] [address] [place] [address] Gael Coffman MD Social History Tobacco Use [...] Dear Dr. Coffman, Received test results in [place]. However, don't understand. Would greatly appreciate it if you cansend in laymans terms what they mean. documented in this encounter Plan of Treatment Not on file documented as of this encounter Visit Diagnoses Not on filedocumented in this encounter Care Teams Pipe Fitter Marine Relationship Specialty Start Date End Date Gael Coffman MD PCP - General 06/10/01 04/21/17 Aram Modi MD PCP - General Internal Medicine 04/22/17 09/10/20 [facility], Pcp PCP - General Internal Medicine 09/11/20 02/17/23 Aram Modi MD PCP - General Internal Medicine 02/18/23 Ravinder Jose MD Specialist Cardiology 02/11/23 Fabien Burgos NP Specialist Cardiology 02/11/23 Angelica Price MD [address] [place] [address] Specialist Cardiology 03/11/23 documented as of this encounter
--- OUTSIDE RECORDS SUMMARY | 2024-07-30 13:40 | XMS_ITS | Encounter Summary ---
Author Organization [facility] Address [address] [place] [address] Care Team Providers Care Marketing Recruiter Name Role Phone Gael Coffman MD Primary Care Provider Unavail able Aram Modi MD Primary Care Provider Yanet Gilmore Pcp Primary Care Provider UnavailRavinder Wallace MD Unavailable [phone] Fabien Burgos NP Unavailable [phone] Aram Modi MD Primary Care Provider Angelica Cardozo MD Unavailable [phone] Encounter Details Date Type Department Care Team Description 09/17/2016 Dog Sitter Report Medical Records [address] [place] [address] Jeet Saenz MD, MD Social History Tobacco [...] on filedocumented in this encounter Care Teams Marketing Recruiter Relationship Specialty Start Date End Date Gael Coffman MD PCP - General 06/10/01 04/21/17 Aram Modi MD PCP - General Internal Medicine 04/22/17 09/10/20 [facility], Pcp PCP - General Internal Medicine 09/11/20 02/17/23 Aram Modi MD PCP - General Internal Medicine 02/18/23 Ravinder Jose MD Specialist Cardiology 02/11/23 Fabien Burgos NP Specialist Cardiology 02/11/23 Angelica Price MD [address] [place] [address] Specialist Cardiology 03/11/23 documented as of this encounter
--- OUTSIDE RECORDS SUMMARY | 2024-07-30 13:40 | XMS_ITS | Encounter Summary ---
Author Organization Formerly [facility] Address [address] [place] [address] Care Team Providers Care Worker'S Compensation Claims Examiner Name Role Phone Gael Coffman MD Primary Care Provider Unavail able Aram Modi MD Primary Care Provider Yanet Gilmore Pcp Primary Care Provider UnavailRavinder Wallace MD Unavailable [phone] Fabien Burgos NP Unavailable [phone] Aram Modi MD Primary Care Provider Angelica Cardozo MD Unavailable [phone] Reason for Visit * Reason Onset Date Comments medication problems 11/27/2016 Encounter Details Date Type Department Care Team Description 11/27/2016 Telephone Adult Medicine [facility] [address] [place] [address] Gael Coffman MD medication problems Social History Tobacco Use Types Packs/Day Years [...] encounter Miscellaneous Notes * Telephone Encounter - Diamond Joya [facility] - 12/02/2016 10:48 AM EDT Telephone Information: Pharm states they did not get the rx for inspra Needs to go to [facility] * Telephone Encounter - Gael Coffman MD - 12/02/2016 8:48 AM EDT I do not see any new orders?? * Telephone Encounter - Sean Dozier - 12/02/2016 8:39 AM EDT Patient is calling about this script. * Telephone Encounter - Sadie Collins M.A. - 11/27/2016 9:46 AM EDT Date of last office visit was 11/25/16. Pended appt for 12/12/16. Lipitor was sent to the pharmacy on11/25/16 Lab Results Component Value Date NA 144 11/20/2016 K 4.2 11/20/2016 CO2 27.5 11/20/2016 CL 106 11/20/2016 BUN 14 11/20/2016 CREAT 1.1 11/20/2016 GLU 106 11/20/2016 CA 9.0 11/20/2016 GFR > 60 11/20/2016 * Telephone Encounter - Prasad Hicks - 11/27/2016 9:41 AM EDT Patient would like script to be: E-PRESCRIBED/FAXED TO PHARMACY WHEN WAS THE PATIENT'S LAST APPOINTMENT IN ADULT MEDICINE? 11/25/16 WHEN WAS THE LAST TIME THE PATIENT SAW THEIR PCP? Same as above Does patient have an upcoming appointment? Yes 12/12/16 (THE MEDICATION REQUESTED IS ON THE MED LIST ABOVE) All of the medications requested were on the CURRENT MEDS list Did you check the Pharmacy information above?: YES Patient wants: 90 -day supply Is this a mail order prescription request ? YES Patients current insurance carrier is: [place] / [place] / Product Type: MEDICARE [id number] * Telephone Encounter - Sadie Collins M.A. - 11/27/2016 9:37 AM EDT Please set up refill encounter and send to the prescription pool. Thank you * Telephone Encounter - Prasad Hicks - 11/27/2016 9:00 AM EDT Who is calling? A pharmacist: Pharmacy: [facility] Pharmacist Name: [facility] Name of the medication atorvastatin (LIPITOR) 10 MG tablet, eplerenone (INSPRA) 50 MG tablet What is the specific problem or interaction? Pharmacy states pt called them and stated all his medications are supposed to be sent to [facility]. They have not received medication, asking to send to [facility] mailorder. If the patient is having a problem with taking the med - how long has the problem been going on? N/A documented in this encounter Plan of Treatment Not on file documented as of this encounter Visit Diagnoses Not on filedocumented in this encounter Care Teams Worker'S Compensation Claims Examiner Relationship Specialty Start Date End Date Gael Coffman MD PCP - General 06/10/01 04/21/17 Aram Modi MD PCP - General Internal Medicine 04/22/17 09/10/20 [facility] PCP - General Internal Medicine 09/11/20 02/17/23 Aram Modi MD PCP - General Internal Medicine 02/18/23 Ravinder Jose MD Specialist Cardiology 02/11/23 Fabien Burgos NP Specialist Cardiology 02/11/23 Angelica Price MD [address] [place] [address] Specialist Cardiology 03/11/23 documented as of this encounter
--- OUTSIDE RECORDS SUMMARY | 2024-07-30 13:40 | XMS_ITS | Encounter Summary ---
Author Organization [facility] Address [address] [place] [address] Care Team Providers Care Grade Checker Name Role Phone Aram Modi MD Primary Care Provider Yanet Gilmore Pcp Primary Care Provider Unavailformerly [facility] Ravinder Salvador MD Unavailable [phone] Fabien Burgos NP Unavailable [phone] Aram Modi MD Primary Care Provider Unava Angelica Russell MD Unavailable [phone] Encounter Details Date Type Department Care Team Description 08/15/2020 Pt. Non Urgent Medic al Question Adult Medicine [address] [address] Aram Modi MD Social History Tobacco Use [...] Miscellaneous Notes * Telephone Encounter - Erin Somers M.A. - 08/17/2020 10:27 AM EDTFrom: Cy Velez To: Aram Modi MD Sent: 08/15/2020 7:24 PM EDT Subject: Primary Care Hi , Seems to be an exodus from [place]. Unfortunately, the good people are leaving. I have come to count on you for my medical care, because of trust and confidence. So, how can I go about signing up with your new office and keeping you as my primary care physician. At 80 years of age I don't want to start over again. Please advise, Cy documented in this encounter Plan of Treatment Not on file documented as of this encounter Visit Diagnoses Not on filedocumented in this encounter Care Teams Grade Checker Relationship Specialty Start Date End Date Aram Modi MD PCP - General Internal Medicine 04/22/17 09/10/20 [facility] PCP - General Internal Medicine 09/11/20 02/17/23 Aram Modi MD PCP - General Internal Medicine 02/18/23 Ravinder Jose MD Specialist Cardiology 02/11/23 Fabien Burgos NP Specialist Cardiology 02/11/23 Angelica Price MD [address] [place] [address] Specialist Cardiology 03/11/23 documented as of this encounter
--- OUTSIDE RECORDS SUMMARY | 2024-07-30 13:40 | XMS_ITS | Encounter Summary ---
Author Organization [facility] Address [address] [place] [address] Care Team Providers Care Safety Analyst Name Role Phone Gael Coffman MD Primary Care Provider Unavail able Aram Modi MD Primary Care Provider Yanet Gilmore Pcp Primary Care Provider UnavailRavinder Wallace MD Unavailable [phone] Fabien Burgos NP Unavailable [phone] Aram Modi MD Primary Care Provider Angelica Cardozo MD Unavailable [phone] Encounter Details Date Type Department Care Team Description 06/06/2014 [facility] Medical Records [address] [place] [address] Crystal Talley Social History Tobacco Use Types [...] on filedocumented in this encounter Care Teams Safety Analyst Relationship Specialty Start Date End Date Gael Coffman MD PCP - General 06/10/01 04/21/17 Aram Modi MD PCP - General Internal Medicine 04/22/17 09/10/20 [facility]cp PCP - General Internal Medicine 09/11/20 02/17/23 Aram Modi MD PCP - General Internal Medicine 02/18/23 Ravinder Jose MD Specialist Cardiology 02/11/23 Fabien Burgos NP Specialist Cardiology 02/11/23 Angelica Price MD [address] [place] [address] Specialist Cardiology 03/11/23 documented as of this encounter
--- OUTSIDE RECORDS SUMMARY | 2024-07-30 13:40 | XMS_ITS | Encounter Summary ---
Author Organization [facility] Address [address] [place] [address] Care Team Providers Care Automated Teller Manager Name Role Phone Gael Coffman MD Primary Care Provider Unavail able Aram Modi MD Primary Care Provider Yanet Gilmore Pcp Primary Care Provider UnavailRavinder Wallace MD Unavailable [phone] Fabien Burgos NP Unavailable [phone] Aram Modi MD Primary Care Provider Angelica Cardozo MD Unavailable [phone] Encounter Details Date Type Department Care Team Description 01/07/2017 [facility] Medical Records [address] [place] [address] Abstract, Provider Social History Tobacco Use Types [...] on filedocumented in this encounter Care Teams Automated Teller Manager Relationship Specialty Start Date End Date Gael Coffman MD PCP - General 06/10/01 04/21/17 Aram Modi MD PCP - General Internal Medicine 04/22/17 09/10/20 [facility] Pcp PCP - General Internal Medicine 09/11/20 02/17/23 Aram Modi MD PCP - General Internal Medicine 02/18/23 Ravinder Jose MD Specialist Cardiology 02/11/23 Fabien Burgos NP Specialist Cardiology 02/11/23 Angelica Price MD [address] [place] [address] Specialist Cardiology 03/11/23 documented as of this encounter
--- OUTSIDE RECORDS SUMMARY | 2024-07-30 13:40 | XMS_ITS | Encounter Summary ---
Author Organization [facility] Address [address] [place] [address] Care Team Providers Care Campground Attendant Name Role Phone Gael Coffman MD Primary Care Provider Unavail able Aram Modi MD Primary Care Provider Luis E Parker Primary Care Provider UnavailRavinder Wallace MD Unavailable [phone] Fabien Burgos NP Unavailable [phone] Aram Modi MD Primary Care Provider Angelica Cardozo MD Unavailable [phone] Encounter Details Date Type Department Care Team Description 02/14/2014 [facility] Medical Records [address] [place] [address] Arturo Patel PA-C [address] [facility] [address] [place] [address] Social History Tobacco Use Types Packs/Day Years [...] on filedocumented in this encounter Care Teams Campground Attendant Relationship Specialty Start Date End Date Gael Coffman MD PCP - General 06/10/01 04/21/17 Aram Modi MD PCP - General Internal Medicine 04/22/17 09/10/20 [facility] Pcp PCP - General Internal Medicine 09/11/20 02/17/23 Aram Modi MD PCP - General Internal Medicine 02/18/23 Ravinder Jose MD Specialist Cardiology 02/11/23 Fabien Burgos NP Specialist Cardiology 02/11/23 Angelica Price MD [address] [place] [address] Specialist Cardiology 03/11/23 documented as of this encounter
--- OUTSIDE RECORDS SUMMARY | 2024-07-30 13:40 | XMS_ITS | Encounter Summary ---
Author Organization [facility] Address [address] [place] [address] Care Team Providers Care Diesel Tractor Engine Mechanic Name Role Phone Gael Coffman MD Primary Care Provider Unavail able Aram Modi MD Primary Care Provider Yanet [facility] Pcp Primary Care Provider UnavailRavinder Wallace MD Unavailable Fabien Burgos NP Unavailable [phone] Aram Modi MD Primary Care Provider Angelica Cardozo MD Unavailable [phone] Encounter Details Date Type Department Care Team Description 08/16/2016 [facility] Medical Records [address] [place] [address] Abstract, Provider Social History Tobacco Use Types [...] on filedocumented in this encounter Care Teams Diesel Tractor Engine Mechanic Relationship Specialty Start Date End Date Gael Coffman MD PCP - General 06/10/01 04/21/17 Aram Modi MD PCP - General Internal Medicine 04/22/17 09/10/20 [facility] PCP - General Internal Medicine 09/11/20 02/17/23 Aram Modi MD PCP - General Internal Medicine 02/18/23 Ravinder Jose MD Specialist Cardiology 02/11/23 Fabien Burgos NP Specialist Cardiology 02/11/23 Angelica Price MD [address] [place] [address] Specialist Cardiology 03/11/23 documented as of this encounter
--- OUTSIDE RECORDS SUMMARY | 2024-07-30 13:41 | XMS_ITS | Encounter Summary ---
Author Organization [facility] Address [address] [place] [address] Care Team Providers Care Medical Insurance Verifier Name Role Phone Gael Coffman MD Primary Care Provider Unavail able Aram Modi MD Primary Care Provider Yanet Gilmore Pcp Primary Care Provider UnavailRavinder Wallace MD Unavailable [phone] Fabien Burgos NP Unavailable [phone] Aram Modi MD Primary Care Provider Angelica Cardozo MD Unavailable [phone] Encounter Details Date Type Department Care Team Description 10/31/2016 Clinical Laboratory Manager Report Medical Records [address] [place] [address] Thony Powers, PA-C Social History Tobacco Use [...] filedocumented in this encounter Care Teams Medical Insurance Verifier Relationship Specialty Start Date End Date Gael Coffman MD PCP - General 06/10/01 04/21/17 Aram Modi MD PCP - General Internal Medicine 04/22/17 09/10/20 [facility] Pcp PCP - General Internal Medicine 09/11/20 02/17/23 Aram Modi MD PCP - General Internal Medicine 02/18/23 Ravinder Jose MD Specialist Cardiology 02/11/23 Fabien Burgos NP Specialist Cardiology 02/11/23 Angelica Price MD [address] [place] [address] Specialist Cardiology 03/11/23 documented as of this encounter
--- OUTSIDE RECORDS SUMMARY | 2024-07-30 13:41 | XMS_ITS | Encounter Summary ---
Author Organization [facility] Address [address] [place] [address] Care Team Providers Care Traffic Analyst Name Role Phone Gael Coffman MD Primary Care Provider Unavail able Aram Modi MD Primary Care Provider Yanet Gilmore Pcp Primary Care Provider UnavailRavinder Wallace MD Unavailable [phone] Fabien Burgos NP Unavailable [phone] Aram Modi MD Primary Care Provider Angelica Cardozo MD Unavailable Encounter Details Date Type Department Care Team Description 05/22/2015 Marine Habitat Resource Specialist Report Medical Records [address] [place] [address] Reilly Gaffney MD Social History Tobacco Use [...] on filedocumented in this encounter Care Teams Traffic Analyst Relationship Specialty Start Date End Date Gael Coffman MD PCP - General 06/10/01 04/21/17 Aram Modi MD PCP - General Internal Medicine 04/22/17 09/10/20 [facility], Pcp PCP - General Internal Medicine 09/11/20 02/17/23 Aram Modi MD PCP - General Internal Medicine 02/18/23 Ravinder Jose MD Specialist Cardiology 02/11/23 Fabien Burgos NP Specialist Cardiology 02/11/23 Angelica Price MD [address] [place] [address] Specialist Cardiology 03/11/23 documented as of this encounter
--- OUTSIDE RECORDS SUMMARY | 2024-07-30 13:41 | XMS_ITS | Encounter Summary ---
Author Organization [facility] Address [address] [place] [address] Care Team Providers Care Residential Interior Designer Name Role Phone Aram Modi MD Primary Care Provider Yanet Gilmore, Pcp Primary Care Provider [facility] Ravinder Salvador MD Unavailable [phone] Fabien Burgos NP Unavailable [phone] Aram Modi MD Primary Care Provider Angelica Cardozo MD Unavailable [phone] Encounter Details Date Type Department Care Team Description 09/25/2018 Plant Sciences Professor Report Medical Records [address] [place] [address] Akira Brown MD Social History Tobacco Use [...] filedocumented in this encounter Care Teams Residential Interior Designer Relationship Specialty Start Date End Date Aram Modi MD PCP - General Internal Medicine 04/22/17 09/10/20 [facility], Pcp PCP - General Internal Medicine 09/11/20 02/17/23 Aram Modi MD PCP - General Internal Medicine 02/18/23 Ravinder Jose MD Specialist Cardiology 02/11/23 Fabien Burgos NP Specialist Cardiology 02/11/23 Angelica Price MD [address] [address] Specialist Cardiology 03/11/23 documented as of this encounter
--- OUTSIDE RECORDS SUMMARY | 2024-07-30 13:41 | XMS_ITS | Encounter Summary ---
Author Organization [facility] Address [address] [place] [address] Care Team Providers Care Psychiatric Lpn Name Role Phone Gael Coffman MD Primary Care Provider Unavail able Aram Modi MD Primary Care Provider Yanet Gilmore Pcp Primary Care Provider UnavailRavinder Wallace MD Unavailable [phone] Fabien Burgos NP Unavailable [phone] Aram Modi MD Primary Care Provider UnaAngelica Willard MD Unavailable [phone] Reason for Visit * Reason Onset Date Comments APPOINTMENT 06/14/2015 Encounter Details Date Type Department Care Team Description 06/14/2015 Telephone Physiatry - [address] [address] Dallas Hamilton, DO APPOINTMENT Social History Tobacco Use Types Packs/Day Years [...] encounter Miscellaneous Notes * Telephone Encounter - Livier Dong M.A. - 06/14/2015 10:25 AM EST There is an opening tomorrow at 10:45am You can offer him that * Telephone Encounter - Demetrice Rodriguez - 06/14/2015 10:03 AM EST Patient calling to book an appointment with Dr. Hamilton and was last seen on 07/05/14 for chest wall pain. Patient states that he is experiencing this same type of pain but it has multiplied and spread to his whole body. Patient states that he can barely walk and is in excruciating pain. I offered patient an appointment with Dr. Hamilton in July, but patient states that he needs to be seen JONATHAN and wanted to let Dr. Hamilton know that he is a friend of Thomas Tucker , assuming this would help him get an appointment sooner. I advised patient that he could take an appointment in July and call to check for cancellations but he refused. documented in this encounter Plan of Treatment Not on file documented as of this encounter Visit Diagnoses Not on filedocumented in this encounter Care Teams Psychiatric Lpn Relationship Specialty Start Date End Date Gael Coffman MD PCP - General 06/10/01 04/21/17 Aram Modi MD PCP - General Internal Medicine 04/22/17 09/10/20 [facility] PCP - General Internal Medicine 09/11/20 02/17/23 Aram Modi MD PCP - General Internal Medicine 02/18/23 Ravinder Jose MD Specialist Cardiology 02/11/23 Fabien Burgos NP Specialist Cardiology 02/11/23 Angelica Price MD [address] [place] [address] Specialist Cardiology 03/11/23 documented as of this encounter
--- OUTSIDE RECORDS SUMMARY | 2024-07-30 13:41 | XMS_ITS | Encounter Summary ---
Author Organization [facility] Address [address] [place] [address] Care Team Providers Care Swage Tender Name Role Phone Gael Coffman MD Primary Care Provider Unavail able Aram Modi MD Primary Care Provider Yanet Gilmore Pcp Primary Care Provider UnavailRavinder Wallace MD Unavailable [phone] Fabien Burgos NP Unavailable [phone] Aram Modi MD Primary Care Provider Angelica Cardozo MD Unavailable Encounter Details Date Type Department Care Team Description 12/25/2010 [facility] Medical Records [address] [place] [address] Sascha Keller MD Social History Tobacco Use [...] on filedocumented in this encounter Care Teams Swage Tender Relationship Specialty Start Date End Date Gael Coffman MD PCP - General 06/10/01 04/21/17 Aram Modi MD PCP - General Internal Medicine 04/22/17 09/10/20 [facility], Pcp PCP - General Internal Medicine 09/11/20 02/17/23 Aram Modi MD PCP - General Internal Medicine 02/18/23 Ravinder Jose MD Specialist Cardiology 02/11/23 Fabien Burgos NP Specialist Cardiology 02/11/23 Angelica Price MD [address] [place] [address] Specialist Cardiology 03/11/23 documented as of this encounter
--- OUTSIDE RECORDS SUMMARY | 2024-07-30 13:41 | XMS_ITS | Encounter Summary ---
Author Organization [facility] Address [address] [place] [address] Care Team Providers Care Animal Health Technician Name Role Phone Gael Coffman MD Primary Care Provider Unavail able Aram Modi MD Primary Care Provider Yanet Gilmore Pcp Primary Care Provider UnavailRavinder Wallace MD Unavailable [phone] Fabien Burgos NP Unavailable [phone] Aram Modi MD Primary Care Provider Angelica Cardozo MD Unavailable [phone] Encounter Details Date Type Department Care Team Description 06/30/2015 [facility] Medical Records [address] [place] [address] Reilly Gaffney MD Social History Tobacco Use [...] on filedocumented in this encounter Care Teams Animal Health Technician Relationship Specialty Start Date End Date Gael Coffman MD PCP - General 06/10/01 04/21/17 Aram Modi MD PCP - General Internal Medicine 04/22/17 09/10/20 [facility], Pcp PCP - General Internal Medicine 09/11/20 02/17/23 Aram Modi MD PCP - General Internal Medicine 02/18/23 Ravinder Jose MD Specialist Cardiology 02/11/23 Fabien Burgos NP Specialist Cardiology 02/11/23 Angelica Price MD [address] [place] [address] Specialist Cardiology 03/11/23 documented as of this encounter
--- OUTSIDE RECORDS SUMMARY | 2024-07-30 13:41 | XMS_ITS | Encounter Summary ---
Author Organization [facility] Address [address] [place] [address] Care Team Providers Care Campaign Marketing Specialist Name Role Phone Gael Coffman MD Primary Care Provider Unavail able Aram Modi MD Primary Care Provider Yanet Gilmore Pcp Primary Care Provider UnavailRavinder Wallace MD Unavailable [phone] Fabien Burgos NP Unavailable [phone] Aram Modi MD Primary Care Provider Angelica Cardozo MD Unavailable [phone] Reason for Visit * Reason Onset Date Comments Hypertension Clinic Orders 10/30/2016 Order s PENDING for review and signing. Encounter Details Date Type Department Care Team Description 10/30/2016 Telephone Hypertension - [place] [address] [place] [address] Felicitas Love, Pharm.D Hypertension Clinic Orders (Orders [...] BASIC METABOLIC PANEL (11/20/2016 11:35 AM EDT) [facility] GLUCOSE 106(H) 70 - 100 mg/dL 11/20/2016 3:32 PM [facility] Comment: Reference range applicable to fasting specimens only Based on recommendations from the ADA and AACE, the fasting glucose reference range has been changed to 70-100 mg/dL. ??This change is effective October 02, 2009 BUN 14 5 - 25 mg/dL 11/20/2016 3:32 PM [facility] CREAT 1.1 0.7 - 1.5 mg/dL 11/20/2016 3:32 PM [facility] GFR > 60 >60 11/20/2016 3:32 PM EDT [facility] Comment: If patient is -Georgian, multiply result by 1.21 Chronic Kidney Disease: [...] Gael Coffman MD LAB Performing Organization Address City/State/[facility] Co de Phone Number [facility] [address] [facility] documented in this encounter Visit Diagnoses Diagnosis Essential hypertension- Primary Unspecified essential hypertension documented in this encounter Care Teams Campaign Marketing Specialist Relationship Specialty Start Date End Date Gael Coffman MD PCP - General 06/10/01 04/21/17 Aram Modi MD PCP - General Internal Medicine 04/22/17 09/10/20 [facility] PCP - General Internal Medicine 09/11/20 02/17/23 Aram Modi MD PCP - General Internal Medicine 02/18/23 Ravinder Jose MD Specialist Cardiology 02/11/23 Fabien Burgos NP Specialist Cardiology 02/11/23 Angelica Price MD [address] [facility] [address] [place] [address] Specialist Cardiology 03/11/23 documented as of this encounter
--- OUTSIDE RECORDS SUMMARY | 2024-07-30 13:41 | XMS_ITS | Encounter Summary ---
Author Organization [facility] Address [address] [place] [address] Care Team Providers Care Day Care Director Name Role Phone Gael Coffman MD Primary Care Provider Unavail able Aram Modi MD Primary Care Provider Yanet Gilmore Pcp Primary Care Provider UnavailRavinder Wallace MD Unavailable [phone] Fabien Burgos NP Unavailable [phone] Aram Modi MD Primary Care Provider Angelica Cardozo MD Unavailable [phone] Encounter Details Date Type Department Care Team Description 05/18/2015 Wellness Visit Medical Records [address] [place] [address] Gael Coffman MD Social History Tobacco Use [...] on filedocumented in this encounter Care Teams Day Care Director Relationship Specialty Start Date End Date Gael Coffman MD PCP - General 06/10/01 04/21/17 Aram Modi MD PCP - General Internal Medicine 04/22/17 09/10/20 [facility], Pcp PCP - General Internal Medicine 09/11/20 02/17/23 Aram Modi MD PCP - General Internal Medicine 02/18/23 Ravinder Jose MD Specialist Cardiology 02/11/23 Fabien Burgos NP Specialist Cardiology 02/11/23 Angelica Price MD [address] [place] [address] Specialist Cardiology 03/11/23 documented as of this encounter
--- OUTSIDE RECORDS SUMMARY | 2024-07-30 13:41 | XMS_ITS | Encounter Summary ---
Author Organization [facility] Address [address] [place] [address] Care Team Providers Care Gold Charmer Name Role Phone Aram Modi MD Primary Care Provider Unakuldeep Gilmore Pcp Primary Care Provider [facility] Ravinder Salvador MD Unavailable [phone] Fabien Burgos NP Unavailable [phone] Aram Modi MD Primary Care Provider Unava Angelica Russell MD Unavailable [phone] Encounter Details Date Type Department Care Team Description 09/01/2018 Pt. Non Urgent Medic al Question Medicine/Pediatrics - [address] [address] Aram Modi MD Social History Tobacco Use [...] on filedocumented in this encounter Care Teams Gold Charmer Relationship Specialty Start Date End Date Aram Modi MD PCP - General Internal Medicine 04/22/17 09/10/20 [facility] PCP - General Internal Medicine 09/11/20 02/17/23 Aram Modi MD PCP - General Internal Medicine 02/18/23 Ravinder Jose MD Specialist Cardiology 02/11/23 Fabien Burgos NP Specialist Cardiology 02/11/23 Angelica Price MD [address] [place] [address] Specialist Cardiology 03/11/23 documented as of this encounter
--- OUTSIDE RECORDS SUMMARY | 2024-07-30 13:41 | XMS_ITS | Encounter Summary ---
Author Organization [facility] Address [address] [place] [address] Care Team Providers Care Hot Sealing Machine Operator Name Role Phone Gael Coffman MD Primary Care Provider Unavail able Aram Modi MD Primary Care Provider Yanet Gilmore Pcp Primary Care Provider UnavailRavinder Wallace MD Unavailable [phone] Fabien Burgos NP Unavailable [phone] Aram Modi MD Primary Care Provider Angelica Cardozo MD Unavailable [phone] Reason for Visit * Reason Onset Date Comments Advice 09/10/2015 Encounter Details Date Type Department Care Team Description 09/10/2015 Pt. Non Urgent Medical Question Adult Medicine - [place] [address] [place] [address] Gael Coffman MD Social History Tobacco Use [...] the system. I will get them in [place] close to my home. Thank you, Shan Velez documented in this encounter Plan of Treatment Not on file documented as of this encounter Visit Diagnoses Not on filedocumented in this encounter Care Teams Hot Sealing Machine Operator Relationship Specialty Start Date End Date Gael Coffman MD PCP - General 06/10/01 04/21/17 Aram Modi MD PCP - General Internal Medicine 04/22/17 09/10/20 [facility] PCP - General Internal Medicine 09/11/20 02/17/23 Aram Modi MD PCP - General Internal Medicine 02/18/23 Ravinder Jose MD Specialist Cardiology 02/11/23 Fabien Burgos NP Specialist Cardiology 02/11/23 Angelica Price MD [address] [place] [address] Specialist Cardiology 03/11/23 documented as of this encounter
--- OUTSIDE RECORDS SUMMARY | 2024-07-30 13:41 | XMS_ITS | Encounter Summary ---
Author Organization [facility] Address [address] [place] [address] Care Team Providers Care Visitor Services Representative Name Role Phone Aram Modi MD Primary Care Provider Unakuldeep Gilmore Pcp Primary Care Provider [facility] Ravinder Salvador MD Unavailable [phone] Fabien Burgos NP Unavailable [phone] Aram Modi MD Primary Care Provider Unava Angeilca Russell MD Unavailable [phone] Encounter Details Date Type Department Care Team Description 12/28/2019 Orders Only Nephrology - [address] [address] Abhishek Haynes MD [address] [place] [address] [id number] Social History Tobacco Use Types Packs/Day Years [...] on filedocumented in this encounter Care Teams Visitor Services Representative Relationship Specialty Start Date End Date Aram Modi MD PCP - General Internal Medicine 04/22/17 09/10/20 [facility] Pcp PCP - General Internal Medicine 09/11/20 02/17/23 Aram Modi MD PCP - General Internal Medicine 02/18/23 Ravinder Jose MD Specialist Cardiology 02/11/23 Fabien Burgos NP Specialist Cardiology 02/11/23 Angelica Price MD [address] [place] [address] Specialist Cardiology 03/11/23 documented as of this encounter
--- OUTSIDE RECORDS SUMMARY | 2024-07-30 13:41 | XMS_ITS | Encounter Summary ---
Author Organization [facility] Address [address] [place] [address] Care Team Providers Care Seam Hammerer Name Role Phone Aram Modi MD Primary Care Provider Yanet Gilmore Pcp Primary [facility] Ravinder Salvador MD Unavailable [phone] Fabien Burgos NP Unavailable [phone] Aram Modi MD Primary Care Provider Unava Angelica Russell MD Unavailable [phone] Encounter Details Date Type Department Care Team Description 08/04/2018 Pt. Non Urgent Medical Question Medicine/Pediatrics - [address] [address] Aram Modi MD Chest pain, unspecified type [...] Primary documented in this encounter Care Teams Seam Hammerer Relationship Specialty Start Date End Date Aram Modi MD PCP - General Internal Medicine 04/22/17 09/10/20 [facility] PCP - General Internal Medicine 09/11/20 02/17/23 Aram Modi MD PCP - General Internal Medicine 02/18/23 Ravinder Jose MD Specialist Cardiology 02/11/23 Fabien Burgos NP Specialist Cardiology 02/11/23 Angelica Price MD [address] [address] Specialist Cardiology 03/11/23 documented as of this encounter
--- OUTSIDE RECORDS SUMMARY | 2024-07-30 13:41 | XMS_ITS | Encounter Summary ---
Author Organization [facility] Address [address] [place] [address] Care Team Providers Care Mat Gauger Name Role Phone Gael Coffman MD Primary Care Provider Unavail able Aram Modi MD Primary Care Provider Yanet Gilmore Pcp Primary Care Provider UnavailRavinder Wallace MD Unavailable [phone] Fabien Burgos NP Unavailable [phone] Aram Modi MD Primary Care Provider Angelica Cardozo MD Unavailable [phone] Encounter Details Date Type Department Care Team Description 06/24/2012 Pt. Non Urgent Medical Question Adult Medicine B - [place] [address] [place] [address] Gael Coffman MD Social History Tobacco Use [...] on filedocumented in this encounter Care Teams Mat Gauger Relationship Specialty Start Date End Date Gael Coffman MD PCP - General 06/10/01 04/21/17 Aram Modi MD PCP - General Internal Medicine 04/22/17 09/10/20 [facility] PCP - General Internal Medicine 09/11/20 02/17/23 Aram Modi MD PCP - General Internal Medicine 02/18/23 Ravinder Jose MD Specialist Cardiology 02/11/23 Fabien Burgos NP Specialist Cardiology 02/11/23 Angelica Price MD [address] [address] Specialist Cardiology 03/11/23 documented as of this encounter
--- OUTSIDE RECORDS SUMMARY | 2024-07-30 13:41 | XMS_ITS | Encounter Summary ---
Author Organization [facility] Address [address] [place] [address] Care Team Providers Care Director Database Name Role Phone Aram Modi MD Primary Care Provider Yanet Gilmore Pcp Primary Care Provider [facility] Ravinder Salvador MD Unavailable [phone] Fabien Burgos NP Unavailable [phone] Aram Modi MD Primary Care Provider Unava Angelica Russell MD Unavailable [phone] Encounter Details Date Type Department Care Team Description 03/22/2020 Orders Only Medicine/Pediatrics - [address] [address] Aram Modi MD Essential hypertension (Primary Dx) [...] EST [facility] Comment: If patient is -Romanian, multiply result by 1.21 Chronic Kidney Disease: [...] hypertension documented in this encounter Care Teams Director Database Relationship Specialty Start Date End Date Aram Modi MD PCP - General Internal Medicine 04/22/17 09/10/20 [facility], Pcp PCP - General Internal Medicine 09/11/20 02/17/23 Aram Modi MD PCP - General Internal Medicine 02/18/23 Ravinder Jose MD Specialist Cardiology 02/11/23 Fabien Burgos NP Specialist Cardiology 02/11/23 Angelica Price MD [address] [address] Specialist Cardiology 03/11/23 documented as of this encounter
--- OUTSIDE RECORDS SUMMARY | 2024-07-30 13:41 | XMS_ITS | Encounter Summary ---
Author Organization [facility] Address [address] [place] [address] Care Team Providers Care Test And Balance Engineer Name Role Phone Gael Coffman MD Primary Care Provider Unavail able Aram Modi MD Primary Care Provider Yanet Gilmore Pcp Primary Care Provider UnavailRavinder Wallace MD Unavailable [phone] Fabien Burgos NP Unavailable [phone] Aram Modi MD Primary Care Provider Angelica Cardozo MD Unavailable [phone] Encounter Details Date Type Department Care Team Description 06/30/2015 [facility] Medical Records [address] [place] [address] Abstract, Provider Social History Tobacco Use Types [...] on filedocumented in this encounter Care Teams Test And Balance Engineer Relationship Specialty Start Date End Date Gael Coffman MD PCP - General 06/10/01 04/21/17 Aram Modi MD PCP - General Internal Medicine 04/22/17 09/10/20 [facility] Pcp PCP - General Internal Medicine 09/11/20 02/17/23 Aram Modi MD PCP - General Internal Medicine 02/18/23 Ravinder oJse MD Specialist Cardiology 02/11/23 Fabien Burgos NP Specialist Cardiology 02/11/23 Angelica Price MD [address] [place] [address] Specialist Cardiology 03/11/23 documented as of this encounter
--- OUTSIDE RECORDS SUMMARY | 2024-07-30 13:41 | XMS_ITS | Encounter Summary ---
Author Organization [facility] Address [address] [place] [address] Care Team Providers Care Manufacturing Electrician Name Role Phone Gael Coffman MD Primary Care Provider Unavail able Aram Modi MD Primary Care Provider Yanet lopez [facility] Pcp Primary Care Provider [facility] Ravinder Salvador MD Unavailable [phone] Fabien Burgos NP Unavailable [phone] Aram Modi MD Primary Care Provider Angelica Cardozo MD Unavailable [phone] Reason for Referral * Non JOSH (Routine) - Closed Specialty Diagnoses / Procedures Referred By Contac t Referred To Contact Rheumatology Procedures REFERRAL TO RHEUMATOLOGY Gael Coffman MD [address] [place] [address] [place] Garcia MD [address] [place] [address] Referral ID Status Reason Start Date Expiration Date Visits Re quested Visits Authorized [id number] Closed 07/25/2015 07/24/2016 1 1 Encounter Details Date Type Department Care Team Description 07/24/2015 Pt. Non Urgent Medical Question Adult Medicine B - [address] [address] Gael Coffman MD Pain (Primary Dx) Social [...] 7:49 AM ESTFrom: Cy Velez To: Gael oCffman MD Sent: 07/24/2015 6:25 PM EST Subject: Joint Pain Dear Dr. Cofmfan, I was wondering how fast I might get an appointment with a Vault Person. I have seen Dr. Benitez in the [...] 35 years ago I was diagnosed at [facility] with fibromyalgia. For many years I was [...] pain documented in this encounter Care Teams Manufacturing Electrician Relationship Specialty Start Date End Date Gael Coffman MD PCP - General 06/10/01 04/21/17 Aram Modi MD PCP - General Internal Medicine 04/22/17 09/10/20 [facility], Pcp PCP - General Internal Medicine 09/11/20 02/17/23 Aram Modi MD PCP - General Internal Medicine 02/18/23 Ravinder Jose MD Specialist Cardiology 02/11/23 Fabien Burgos NP Specialist Cardiology 02/11/23 Angelica Price MD [address] [place] [address] Specialist Cardiology 03/11/23 documented as of this encounter
--- OUTSIDE RECORDS SUMMARY | 2024-07-30 13:41 | XMS_ITS | Encounter Summary ---
Author Organization [facility] Address [address] [place] [address] Care Team Providers Care Certified Ski Patroller Name Role Phone Gael Coffman MD Primary Care Provider Unavail able Aram Modi MD Primary Care Provider Yanet Gilmore Pcp Primary Care Provider UnavailRavinder Wallace MD Unavailable [phone] Fabien Burgos NP Unavailable [phone] Aram Modi MD Primary Care Provider Angelica Cardozo MD Unavailable [phone] Encounter Details Date Type Department Care Team Description 01/20/2016 Pt. Non Urgent Medical Question Rheumatology - [place] [address] [place] [id number] [place] Garcia MD Social History Tobacco Use [...] filedocumented in this encounter Care Teams Certified Ski Patroller Relationship Specialty Start Date End Date Gael Coffman MD PCP - General 06/10/01 04/21/17 Aram Modi MD PCP - General Internal Medicine 04/22/17 09/10/20 [facility] Pcp PCP - General Internal Medicine 09/11/20 02/17/23 Aram Modi MD PCP - General Internal Medicine 02/18/23 Ravinder Jose MD Specialist Cardiology 02/11/23 Fabien Burgos NP Specialist Cardiology 02/11/23 Angelica Price MD [address] [place] [address] Specialist Cardiology 03/11/23 documented as of this encounter
--- OUTSIDE RECORDS SUMMARY | 2024-07-30 13:41 | XMS_ITS | Encounter Summary ---
Author Organization [facility] Address [address] [place] [address] Care Team Providers Care Grocery Stock Clerk Name Role Phone Gael Coffman MD Primary Care Provider Unavail able Aram Modi MD Primary Care Provider Yanet Gilmore Pcp Primary Care Provider UnavailRavinder Wallace MD Unavailable [phone] Fabien Burgos NP Unavailable [phone] Aram Modi MD Primary Care Provider Angelica Cardozo MD Unavailable [phone] Encounter Details Date Type Department Care Team Description 12/25/2010 [facility] Medical Records [address] [place] [address] Sascha Keller MD Social History Tobacco Use [...] on filedocumented in this encounter Care Teams Grocery Stock Clerk Relationship Specialty Start Date End Date Gael Coffman MD PCP - General 06/10/01 04/21/17 Aram Modi MD PCP - General Internal Medicine 04/22/17 09/10/20 [facility], Pcp PCP - General Internal Medicine 09/11/20 02/17/23 Aram Modi MD PCP - General Internal Medicine 02/18/23 Ravinder Jose MD Specialist Cardiology 02/11/23 Fabien Burgos NP Specialist Cardiology 02/11/23 Angelica Price MD [address] [place] [address] Specialist Cardiology 03/11/23 documented as of this encounter
--- OUTSIDE RECORDS SUMMARY | 2024-07-30 13:41 | XMS_ITS | Encounter Summary ---
Author Organization [facility] Address [address] [place] [address] Care Team Providers Care Ob Gyn Physician Assistant Name Role Phone Gael Coffman MD Primary Care Provider Unavail able Aram Modi MD Primary Care Provider Yanet Gilmore Pcp Primary Care Provider UnavailRavinder Wallace MD Unavailable [phone] Fabien Burgos NP Unavailable [phone] Aram Modi MD Primary Care Provider Angelica Cardozo MD Unavailable [phone] Encounter Details Date Type Department Care Team Description 03/21/2016 Professor Of Industrial Technology Report Medical Records [address] [place] [address] Reilly Gaffney MD Social History Tobacco Use [...] on filedocumented in this encounter Care Teams Ob Gyn Physician Assistant Relationship Specialty Start Date End Date Gael Coffman MD PCP - General 06/10/01 04/21/17 Aram Modi MD PCP - General Internal Medicine 04/22/17 09/10/20 [facility] Pcp PCP - General Internal Medicine 09/11/20 02/17/23 Aram Modi MD PCP - General Internal Medicine 02/18/23 Ravinder Jose MD Specialist Cardiology 02/11/23 Fabien Burgos NP Specialist Cardiology 02/11/23 Angelica Price MD [address] [place] [address] Specialist Cardiology 03/11/23 documented as of this encounter
--- OUTSIDE RECORDS SUMMARY | 2024-07-30 13:41 | XMS_ITS | Encounter Summary ---
Author Organization [facility] Address [address] [place] [address] Care Team Providers Care Explosive Ordnance Disposal Specialist Name Role Phone Gael Coffman MD Primary Care Provider Unavail able Aram Modi MD Primary Care Provider Yanet Gilmore Pcp Primary Care Provider UnavailRavinder Wallace MD Unavailable [phone] Fabien Burgos NP Unavailable [phone] Arma Modi MD Primary Care Provider Angelica Cardozo MD Unavailable [phone] Encounter Details Date Type Department Care Team Description 10/17/2016 Dietary Services Manager Report Medical Records [address] [place] [address] Thony Powers, PA-C Social History Tobacco Use [...] on filedocumented in this encounter Care Teams Explosive Ordnance Disposal Specialist Relationship Specialty Start Date End Date Gael Coffman MD PCP - General 06/10/01 04/21/17 Aram Modi MD PCP - General Internal Medicine 04/22/17 09/10/20 [facility], Pcp PCP - General Internal Medicine 09/11/20 02/17/23 Aram Modi MD PCP - General Internal Medicine 02/18/23 Ravinder Jose MD Specialist Cardiology 02/11/23 Fabien Burgos NP Specialist Cardiology 02/11/23 Angelica Price MD [address] [place] [address] Specialist Cardiology 03/11/23 documented as of this encounter
--- OUTSIDE RECORDS SUMMARY | 2024-07-30 13:41 | XMS_ITS | Encounter Summary ---
Author Organization [facility] Address [address] [place] [address] Care Team Providers Care Muck Boss Name Role Phone Gael Coffman MD Primary Care Provider Unavail able Aram Modi MD Primary Care Provider Luis E Parker Primary Care Provider UnavailRavinder Wallace MD Unavailable [phone] Fabien Burgos NP Unavailable [phone] Aram Modi MD Primary Care Provider Angelica Cardozo MD Unavailable Encounter Details Date Type Department Care Team Description 10/13/2015 Interior Systems Carpenter Report Medical Records [address] [place] [id number] Ricky Douglas Social History Tobacco Use Types [...] on filedocumented in this encounter Care Teams Muck Boss Relationship Specialty Start Date End Date Gael Coffman MD PCP - General 06/10/01 04/21/17 Aram Modi MD PCP - General Internal Medicine 04/22/17 09/10/20 [facility], Pcp PCP - General Internal Medicine 09/11/20 02/17/23 Aram Modi MD PCP - General Internal Medicine 02/18/23 Ravinder Jose MD Specialist Cardiology 02/11/23 Fabien Burgos NP Specialist Cardiology 02/11/23 Angelica Price MD [address] [place] [address] Specialist Cardiology 03/11/23 documented as of this encounter
--- OUTSIDE RECORDS SUMMARY | 2024-07-30 13:41 | XMS_ITS | Encounter Summary ---
Author Organization [facility] Address [address] [place] [address] Care Team Providers Care Stitcher Standard Machine Name Role Phone Aram Modi MD Primary Care Provider Yanet Gilmore Pcp Primary Care Provider UnavailRavinder Wallace MD Unavailable [phone] Fabien Burgos NP Unavailable [phone] Aram Modi MD Primary Care Provider Angelica Cardozo MD Unavailable [phone] Encounter Details Date Type Department Care Team Description 06/19/2018 Legal Officer Report Medical Records [address] [place] [id number] Ricky Douglas Social History Tobacco Use Types [...] on filedocumented in this encounter Care Teams Stitcher Standard Machine Relationship Specialty Start Date End Date Aram Modi MD PCP - General Internal Medicine 04/22/17 09/10/20 [facility], Pcp PCP - General Internal Medicine 09/11/20 02/17/23 Aram Modi MD PCP - General Internal Medicine 02/18/23 Ravinder Jose MD Specialist Cardiology 02/11/23 Fabien Burgso NP Specialist Cardiology 02/11/23 Angelica Price MD [address] [address] Specialist Cardiology 03/11/23 documented as of this encounter
--- OUTSIDE RECORDS SUMMARY | 2024-07-30 13:42 | XMS_ITS | Encounter Summary ---
Author Organization [facility] Address [address] [place] [address] Care Team Providers Care Buttermilk Drier Operator Name Role Phone Gael Coffman MD Primary Care Provider Unavail able Aram Modi MD Primary Care Provider Yanet Gilmore Pcp Primary Care Provider UnavailRavinder Wallace MD Unavailable Fabien Burgos NP Unavailable [phone] Aram Modi MD Primary Care Provider Angelica Cardozo MD Unavailable [phone] Encounter Details Date Type Department Care Team Description 12/24/2010 [facility] Medical Records [address] [place] [address] Abstract, Provider Social History Tobacco Use Types [...] on filedocumented in this encounter Care Teams Buttermilk Drier Operator Relationship Specialty Start Date End Date Gael Coffman MD PCP - General 06/10/01 04/21/17 Aram Modi MD PCP - General Internal Medicine 04/22/17 09/10/20 [facility], Pcp PCP - General Internal Medicine 09/11/20 02/17/23 Aram Modi MD PCP - General Internal Medicine 02/18/23 Ravinder Jose MD Specialist Cardiology 02/11/23 Fabien Burgos NP Specialist Cardiology 02/11/23 Angelica Price MD [address] [place] [address] Specialist Cardiology 03/11/23 documented as of this encounter
--- OUTSIDE RECORDS SUMMARY | 2024-07-30 13:42 | XMS_ITS | Clinical Summary ---
Author Organization [facility] Address [address] [place] [address] Care Team Providers Care Passenger Service Manager Name Role Phone Gael Coffman MD Primary Care Provider [phone] Allergies Active Allergy Reactions Criticality Noted Date [...] age to complete this topic Care Teams Passenger Service Manager Relationship Specialty Start Date End Date Gael Coffman MD PCP - General Endocrinology 12/19/16
--- OUTSIDE RECORDS SUMMARY | 2024-07-30 13:42 | XMS_ITS | Encounter Summary ---
Author Organization [facility] Address [address] [place] [address] Care Team Providers Care Adoption Specialist Name Role Phone Aram Modi MD Primary Care Provider Yanet Gilmoer, Pcp Primary Care Provider [facility] Ravinder Jose MD Unavailable [phone] Fabien Burgos NP Unavailable [phone] Aram Modi MD Primary Care Provider Angelica Cardozo MD Unavailable [phone] Encounter Details Date Type Department Care Team Description 05/15/2017 [facility] Medical Records [address] [place] [id number] Abstract, Provider Social History Tobacco Use Types [...] on filedocumented in this encounter Care Teams Adoption Specialist Relationship Specialty Start Date End Date Aram Modi MD PCP - General Internal Medicine 04/22/17 09/10/20 [facility], Pcp PCP - General Internal Medicine 09/11/20 02/17/23 Aram Modi MD PCP - General Internal Medicine 02/18/23 Ravinder Jose MD Specialist Cardiology 02/11/23 Fabien Burgos NP Specialist Cardiology 02/11/23 Angelica Price MD [address] [facility] [address] [place] [address] Specialist Cardiology 03/11/23 documented as of this encounter
--- OUTSIDE RECORDS SUMMARY | 2024-07-30 13:42 | XMS_ITS | Clinical Summary ---
Author Organization [address] [place] [address] [place] [phone] Phone Care Team Providers Care Outside Operator Name Role Phone Aram Modi MD Primary Care Provider [phone] Allergies Active Allergy Reactions Criticality Noted Date [...] 12 lead Coronary artery disease invo lving [place] coronary artery of [place] heart without angina pectoris 02/18/2023 Cardiomyopathy 02/17/2023 [...] Overview (03/04/2024): [facility] Home Polysomnogram: Date 02/13/2017; AHI 12, [...] Type Department Care Team Description 06/16/2024 Telephone [facility] [address] [place] [address] Aram Modi MD Medical Records 05/25/2024 7:30 PM EST Ancillary Procedure [facility] [address] [place] [phone] 05/20/2024 Telephone [facility] [address] [place] [phone] Aram Modi MD Medical Records 05/18/2024 7:30 AM EST Ancillary Procedure [facility] [address] [place] [phone] Suspected DVT (deep vein thrombosis); Chest pain on breathing 05/17/2024 1:30 PM EST Consult [facility] [address] [place] [phone] Brooklynn Church MD Other cardiomyopathy ([facility]/HCC) (Primary Dx); Primary hypertension; Pure hypercholesterolemia; Stage 3 chronic kidney disease, unspecified whether stage 3a or 3b CKD ([facility]/HCC); Polymyalgia rheumatica ([facility]/HCC); Second degree heart block; Suspected DVT (deep vein thrombosis); Chest pain on breathing 05/13/2024 Telephone [facility] [address] [place] [address] Brooklynn Church MD 05/06/2024 Telephone [facility] [address] [place] [address] Broolkynn Church MD medication from Last 3 Months Immunizations Name Administration Dates Next Due Influenza Quadravalent, 0.5m l (Fluad) 65yo and older 04/15/2022 Influenza trivalent, 0.5mL ( Fluad) 65yo and older 02/14/2020,02/17/2017 Influenza trivalent, 0.5mL, preservative free (Fluarix; FluLaval; Fluzone) ages 6mo and older (Afluria) 3 years and older 02/27/2015,05/02/2014,04/01/2012,02/07,03/22/2008,03/22/2005 Influenza, Unspecified 03/16/2019,02/26/2016 PPD Test 06/23/2000 Cyanto SARS-CoV-2 COVID-19, mRNA, LNP-S, preservative free 07/23/2020,06/25/2020 Pneumococcal conjugate 13 va lent (Prevnar 13, PCV13) 2mo and older 11/02/2014 Pneumococcal polysaccharide 23 valent (Pneumovax 23) 2yo and older 09/16/2013,01/15/2002 Td Tetanus diptheria (Tdvax) 7yo and older 11/29/2008 Tdap Tetanus diptheria acell ular pertussis (Boostrix; Adacel) 7yo and older 05/17/2016 Zoster Live 12/24/2013 Surgical History Surgery Date Site/Laterality Comments OTHER SURGICAL HISTORY 2004 PROCEDURE: MT RMVL LUNG OTHER THAN PNEUMONECTOMY 1 LOBE LOBECT; COMMENT: LLL for Ca OTHER SURGICAL HISTORY 05/22/12 PROCEDURE: NUCLEAR STRESS TEST REPORT; COMMENT: Nerissa Villanueva, Neg OTHER SURGICAL HISTORY 01/30 PROCEDURE: OUTSIDE NUCLEAR STRESS TEST; COMMENT: neg OTHER SURGICAL HISTORY 01/30 PROCEDURE: CTA CHEST; W/WO CONTRAST MAT; COMMENT: neg COLONOSCOPY 06/29/04 PROCEDURE: HISTORICAL COLONOSCOPY; COMMENT: Nataly perry COLONOSCOPY 03/01 [facility] PROCEDURE: HISTORICAL COLONOSCOPY; COMMENT: devika Shipley; otherwise normal to terminal ileum with normal colonic bxys. UPPER GASTROINTESTINAL ENDOSCOPY 03/01 [facility] PROCEDURE: MT UPPER GI ENDOSCOPY PERFORMED; COMMENT: NOrmal, with normal duodenal biopsies UPPER GASTROINTESTINAL ENDOSCOPY 12/26/2010 PROCEDURE: MT UPPER GI ENDOSCOPY PERFORMED; COMMENT: Minimal erosive gastritis; [facility]; bx negative for H. pylori. KNEE SURGERY 2016 PROCEDURE: HISTORICAL KNEE SURGERY Medical History Medical History Date Comments BPH (benign prostatic hyperplasia) 09/15/2017 DX:BPH (benign prostatic hyperplasia) Chronic pruritus 10/23/2015 DX:Chronic prur itus Chronic rhinitis 03/22/2008 DX:Chronic rhin itis CKD (chronic kidney disease) stage 3, GFR 30-59 ml/min ([facility]/HCC) 10/28/2013 DX:CKD (chronic kidney dise ase) stage [...] apnea; COMMENT: [facility] Home Polysomnogram: Date 02/13/2017; AHI 12, [...] Description 10/28/2024 9:10 AM EDT Office Visit [facility] [address] [place] [address] Fabien Burgos NP [address] [place] [address] [address] [place] [address] 04/20/2025 8:00 AM EST Ancillary Procedure [facility] [address] [place] [phone] Health Maintenance Due Date Last Done Comments [...] this topic Medical Devices Implanted Type Area Medical Equipment Sales Device Identifier Shelf Expiration Date Model / Serial / Lot Bsci-Crm [id number] Implanted:02/16 (Quantity not on file) Cardiac BILLET RECORDER-P [place] [employer] [facility] [id number] / [id number] / Procedures Procedure Name Priority Date/Time Associated [...] 7:29 PM EST) Date Time Interrogation Session [id number] CV DEVICE CHECK Type Interrogation Session Remote Scheduled CV DEVICE CHECK Implantable Pulse Generator Medical Equipment Sales BSX CV DEVICE CHECK Implantable Pulse Generator Type BILLET RECORDER-P CV DEVICE CHECK Implantable Pulse Generator Model U128 CV DEVICE CHECK Implantable Pulse Generator Serial Number [id number] CV DEVICE CHECK Implantable Pulse Generator Implant Date 20230305 CV DEVICE CHECK Battery Remaining Percentage 100.00 CV DEVICE CHECK Battery Remaining Longevity 114.0 CV DEVICE CHECK Battery Status Beginning of Service CV DEVICE CHECK Ayan Statistic RA Percent Paced 41.00 CV DEVICE CHECK Ayan Statistic RV Percent Paced 100.00 CV DEVICE CHECK BILLET RECORDER Statistic LV Percent Paced 100.00 CV DEVICE CHECK Atrial Tachy Statistic AT/AF [place] Percent 0.00 CV DEVICE CHECK Lead Channel [...] CV DEVICE CHECK Ventricular chambers paced during BILLET RECORDER pacing. BiV CV DEVICE CHECK Ayan Setting Lower Rate Limit 60 CV DEVICE CHECK Ayan Setting AT Mode Switch Rate 170 CV DEVICE CHECK Ayan Setting Maximum Tracking Rate 130 CV DEVICE CHECK Ayan Setting Maximum Sensor Rate 130 CV DEVICE CHECK Ayan Setting PAV Delay 150 CV DEVICE CHECK Ayan Setting SUZY Delay 100 CV DEVICE CHECK BILLET RECORDER LV-RV Delay 0 CV D EVICE CHECK [...] us Darleen FISCHER CV IMPLANTABLE CARDIAC DEVICE MT OCEDURES Final Result * Vascular US duplex [...] the left leg. The vessels showed compressibility. Lactation Nurse Details A call scale, color and doppler analysis ultrasound was performed. During the study longitudinal and transverse views were obtained. Pulsed wave doppler was performed. Result [facility] Brooklynn Church MD CV VASCULAR PROCEDURES Final R esult * ECG 12 lead (05/17/2024 1:22 PM EST) [facility] Ventricular Rate ECG 60 BPM GEMUSE Atrial Rate 60 BPM GEMUSE P-R Interval 178 ms GEMUSE QRS Duration 140 ms GEMUSE Q-T Interval 466 ms GEMUSE QTc 466 ms GEMUSE P Wave [place] 25 degrees GEMUSE R [place] 0 degrees GEMUSE T [place] 82 degrees GEMUSE ECG Interpretation AV dual-paced rhythm Abnormal ECG When compared with ECG of 27-AUG-2004 14:55, Electronic ventricular pacemaker has replaced Sinus rhythm Confirmed by BROOKLYNN CHURCH ([id number]) on 05/17/2024 2:55:34 PM GEMUSE 05/17/2024 1:22 PM EST 05/17/2024 2:55 PM EST Result [facility] Brooklynn Church MD ECG ORDERABLES Final Result GEMUSE * Annual BMP Blood Test (12/02/2022) [facility] Annual BMP Blood Test abstracted Result [facility] Historical Provider HEALTH MAINTENANCE Final Result * (ABNORMAL) Lipid panel (09/28/2019) [facility] LDL/HDL Ratio 4 0 - 4 Triglycerides 290(A) 0 - 150 mg/dL Cholesterol 192 0 - 200 mg/dL HDL 51 >=40 mg/dL LDL Cholesterol 83 0 - 100 mg/dL Blood Venous blood specimen / Unknown Result [facility] Historical [facility] BLOOD ORDERABLES Frida l Result from Last 3 Months or Most Recently Relevant to Health Maintenance Insurance MEDICARE [facility] Care Teams Outside Operator Relationship Specialty Start Date End Date Aram Modi MD [address] [address] PCP - General 04/22/17
--- OUTSIDE RECORDS SUMMARY | 2024-07-30 13:42 | XMS_ITS | Encounter Summary ---
Author Organization [facility] Address [address] [place] [address] Care Team Providers Care Inspector Eyeglass Name Role Phone Aram Modi MD Primary Care Provider Unakuldeep Gilmore Pcp Primary Care Provider [facility] Ravinder Salvador MD Unavailable [phone] Fabien Burgos NP Unavailable [phone] Aram Modi MD Primary Care Provider Unava Angelica Russell MD Unavailable [phone] Reason for Visit * Reason Comments E-prescribe Rx Request Encounter Details Date Type Department Care Team Description 09/04/2017 Refill Rheumatology - [place] [address] [place] [address] Krystal Godfrey DO E-prescribe Rx Request Social History Tobacco Use [...] encounter Miscellaneous Notes * Telephone Encounter - Marion Toribioarado - 09/04/2017 9:44 AM EDT Patient would like script to be: E-PRESCRIBED/FAXED TO PHARMACY WHEN WAS THE PATIENT'S LAST APPOINTMENT IN ADULT MEDICINE? 08/19/17 WHEN WAS THE LAST TIME THE PATIENT SAW THEIR PCP? Same as above Does patient have an upcoming appointment? Yes 11/26/17 (THE MEDICATION REQUESTED IS ON THE MED LIST ABOVE) All of the medications requested were on the CURRENT MEDS list Did you check the Pharmacy information above?: YES Patient wants: 90 -day supply Is this a mail order prescription request ? NO Patients current insurance carrier is: [place] / Plan: MEDICARE-[employer] / Product Type: MEDICARE [id number] documented in this encounter Plan of Treatment Not on file documented as of this encounter Visit Diagnoses Not on filedocumented in this encounter Care Teams Inspector Eyeglass Relationship Specialty Start Date End Date Aram Modi MD PCP - General Internal Medicine 04/22/17 09/10/20 [facility] [place] - General Internal Medicine 09/11/20 02/17/23 Aram Modi MD PCP - General Internal Medicine 02/18/23 Ravinder Jose MD Specialist Cardiology 02/11/23 Fabien Burgos NP Specialist Cardiology 02/11/23 Angelica Price MD [address] [place] [address] Specialist Cardiology 03/11/23 documented as of this encounter
--- OUTSIDE RECORDS SUMMARY | 2024-07-30 13:42 | XMS_ITS | Encounter Summary ---
Author Organization [facility] Address [address] [place] [address] Care Team Providers Care Net Developer Software Engineer C Name Role Phone Ravinder Jose MD Unavailable Fabien Burgos NP Unavailable [phone] Aram Modi MD Primary Care Provider Angelica Cardozo MD Unavailable [phone] Encounter Details Date Type Department Care Team Description 03/05/2023 Hospital Medical Records [address] [place] [address] Social History Tobacco Use Types Packs/Day Years [...] on filedocumented in this encounter Care Teams Net Developer Software Engineer C Relationship Specialty Start Date End Date Aram Modi MD PCP - General Internal Medicine 02/18/23 Ravinder Jose MD Specialist Cardiology 02/11/23 Fabien Burgos NP Specialist Cardiology 02/11/23 Angelica Price MD [address] [address] Specialist Cardiology 03/11/23 documented as of this encounter
--- OUTSIDE RECORDS SUMMARY | 2024-07-30 13:42 | XMS_ITS | Encounter Summary ---
Author Organization [facility] Address [address] [place] [address] Care Team Providers Care Dry Cleaning Counter Clerk Name Role Phone Aram Modi MD Primary Care Provider Yanet Gilmore, Pcp Primary Care Provider Unavailabl e Ravinder Jose MD Unavailable [phone] Fabien Burgos NP Unavailable [phone] Aram Modi MD Primary Care Provider Angelica Cardozo MD Unavailable [phone] Encounter Details Date Type Department Care Team Description 08/21/2017 Release of Information Medical Records [address] [place] [address] Abstract, Provider Social History Tobacco Use Types [...] on filedocumented in this encounter Care Teams Dry Cleaning Counter Clerk Relationship Specialty Start Date End Date Aram Modi MD PCP - General Internal Medicine 04/22/17 09/10/20 [place], Pcp PCP - General Internal Medicine 09/11/20 02/17/23 Aram Modi MD PCP - General Internal Medicine 02/18/23 Ravinder Jose MD Specialist Cardiology 02/11/23 Fabien Burgos NP Specialist Cardiology 02/11/23 Angelica Price MD 300 [facility] [address] [place] [address] Specialist Cardiology 03/11/23 documented as of this encounter
--- OUTSIDE RECORDS SUMMARY | 2024-07-30 13:42 | XMS_ITS | Clinical Summary ---
Author Organization [facility] Address [address] [place] [address] Care Team Providers Care Senior Technical Program Manager Name Role Phone Ravinder Jose MD Unavailable [phone] Fabien Burgos NP Unavailable [phone] Aram Modi MD Primary Care Provider Angelica Cardozo MD Unavailable [phone] Allergies Active Allergy Reactions Severity Noted Date [...] Noted Date Cardiac resynchronization therapy pacema ker (BILLING CONTROL CLERK-P) in place 08/01/2023 Second degree heart block 03/26/2023 Coronary artery disease invo lving [place] coronary artery of [place] heart without angina pectoris 02/18/2023 History of cardiac catheterization 02/17 Overview: Done on 02/03/2023 at [facility] indications:CHF Chest pain 02/17/2023 Cardiomyopathy 02/17/2023 [...] s/p lobectomy,Tate Lerma; 07/21;left lower lobe Follows [facility] once a year Chronic pruritus 10/23/2015 Polymyalgia rheumatica 07/31/2015 Overview: Onset 06/03-tapered off prednisone December 2019 Prednisone restarted March 2020 Internal hemorrhoids with complication 0 05/22/2015 Vitamin B 12 deficiency 08/26/2014 Obstructive sleep apnea - mild AHI 12 Overview: [facility] Home Polysomnogram: Date 02/13/2017; AHI 12, [...] Hx Diabetes Negative Hx Hypertension Negative Hx [place] Negative Hx Mental Disorder Negative Hx Sleep [...] VACCINE Completed 11/02/2014, 09/16/2013, 01/15/2002 Care Teams Senior Technical Program Manager Relationship Specialty Start Date End Date Aram Modi MD PCP - General Internal Medicine 02/18/23 Ravinder Jose MD Specialist Cardiology 02/11/23 Fabien Burgos NP Specialist Cardiology 02/11/23 Angelica Price MD 300 [facility] [address] [place] [address] Specialist Cardiology 03/11/23
--- OUTSIDE RECORDS SUMMARY | 2024-07-30 13:42 | XMS_ITS | Encounter Summary ---
Author Organization [facility] Address [address] [place] [address] Care Team Providers Care Force Adjustment Supervisor Name Role Phone Ravinder Jose MD Unavailable [phone] Fabien Burgos NP Unavailable [phone] Aram Modi MD Primary Care Provider Angelica Cardozo MD Unavailable [phone] Encounter Details Date Type Department Care Team Description 02/28/2023 Hospital Medical Records [address] [place] [address] Social History Tobacco Use Types Packs/Day Years [...] on filedocumented in this encounter Care Teams Force Adjustment Supervisor Relationship Specialty Start Date End Date Aram Modi MD PCP - General Internal Medicine 02/18/23 Ravinder Jose MD Specialist Cardiology 02/11/23 Fabien Burgos NP Specialist Cardiology 02/11/23 Angelica Price MD [address] [place] [address] Specialist Cardiology 03/11/23 documented as of this encounter
--- OUTSIDE RECORDS SUMMARY | 2024-07-30 13:42 | XMS_ITS | Encounter Summary ---
Author Organization [facility] Address [address] [place] [address] Care Team Providers Care Final Touch Up Painter Name Role Phone Community, Pcp Primary Care Provider UnavailRavinder Wallace MD Unavailable [phone] Fabien Burgos NP Unavailable [phone] Aram Modi MD Primary Care Provider Angelica Cardozo MD Unavailable [phone] Encounter Details Date Type Department Care Team Description 02/17/2023 [facility] Medical Records [address] [place] [address] [facility] Social History Tobacco Use Types Packs/Day Years [...] on filedocumented in this encounter Care Teams Final Touch Up Painter Relationship Specialty Start Date End Date Community, Pcp PCP - General Internal Medicine 09/11/20 02/17/23 Aram Modi MD PCP - General Internal Medicine 02/18/23 Ravinder Jose MD Specialist Cardiology 02/11/23 Fabien Burgos NP Specialist Cardiology 02/11/23 Angelica Price MD 300 [facility] [address] [place] [address] Specialist Cardiology 03/11/23 documented as of this encounter
--- OUTSIDE RECORDS SUMMARY | 2024-07-30 13:42 | XMS_ITS | Encounter Summary ---
Author Organization [facility] Address [address] [place] [address] Care Team Providers Care Irrigationist Name Role Phone Ravinder Jose MD Unavailable [phone] Fabien Burgos NP Unavailable [phone] Aram Modi MD Primary Care Provider Angelica Cardozo MD Unavailable [phone] Encounter Details Date Type Department Care Team Description 04/30/2023 [facility] Medical Records [address] [place] [address] Abstract, Provider Social History Tobacco Use Types [...] on filedocumented in this encounter Care Teams Irrigationist Relationship Specialty Start Date End Date Aram Modi MD PCP - General Internal Medicine 02/18/23 Ravinder Jose MD Specialist Cardiology 02/11/23 Fabien Burgos NP Specialist Cardiology 02/11/23 Angelica Price MD [address] [address] Specialist Cardiology 03/11/23 documented as of this encounter
--- OUTSIDE RECORDS SUMMARY | 2024-07-30 13:42 | XMS_ITS | Encounter Summary ---
Author Organization [facility] Address [address] [place] [address] Care Team Providers Care Mathematician Research Name Role Phone Ravinder Jose MD Unavailable [phone] Fabien Burgos NP Unavailable [phone] Aram Modi MD Primary Care Provider Angelica Cardozo MD Unavailable [phone] Encounter Details Date Type Department Care Team Description 03/18/2023 SCAN Medical Records [address] [place] [address] Abstract, Provider Social History Tobacco Use Types [...] on filedocumented in this encounter Care Teams Mathematician Research Relationship Specialty Start Date End Date Aram Modi MD PCP - General Internal Medicine 02/18/23 Ravinder Jose MD Specialist Cardiology 02/11/23 Fabien Burgos NP Specialist Cardiology 02/11/23 Angelica Price MD [address] [address] Specialist Cardiology 03/11/23 documented as of this encounter
--- OUTSIDE RECORDS SUMMARY | 2024-07-30 13:42 | XMS_ITS | Encounter Summary ---
Author Organization [facility] Address [address] [place] [address] Care Team Providers Care Technology Applications Engineer Name Role Phone Gael Coffman MD Primary Care Provider Unavail able Aram Modi MD Primary Care Provider Yanet Gilmore Pcp Primary Care Provider UnavailRavinder Wallace MD Unavailable Fabien Burgos NP Unavailable [phone] Aram Modi MD Primary Care Provider Angelica Cardozo MD Unavailable [phone] Reason for Visit * Reason Onset Date Comments Call From Hospital 02/06/2011 Encounter Details Date Type Department Care Team Description 02/06/2011 Telephone Adult Medicine [facility] [address] [place] [address] Gael Coffman MD Call From Hospital Social History Tobacco Use Types Packs/Day [...] encounter Miscellaneous Notes * Telephone Encounter - Mami Vásquez - 02/06/2011 11:22 AM EDT Message given to MD Rach Miguel NP at [facility] calling to inform Dr. Coffman that above patient was seen for dizziness at [facility], being discharged today, 02/06. Pt has some changes on his medications. Asking to please linnea bah. Have her paged. documented in this encounter Plan of Treatment Not on file documented as of this encounter Visit Diagnoses Not on filedocumented in this encounter Care Teams Technology Applications Engineer Relationship Specialty Start Date End Date Gael Coffman MD PCP - General 06/10/01 04/21/17 Aram Modi MD PCP - General Internal Medicine 04/22/17 09/10/20 [facility] PCP - General Internal Medicine 09/11/20 02/17/23 Aram Modi MD PCP - General Internal Medicine 02/18/23 Ravinder Jose MD Specialist Cardiology 02/11/23 Fabien Burgos NP Specialist Cardiology 02/11/23 Angelica Price MD [address] [address] Specialist Cardiology 03/11/23 documented as of this encounter
--- OUTSIDE RECORDS SUMMARY | 2024-07-30 13:42 | XMS_ITS | Encounter Summary ---
Author Organization [facility] Address [address] [place] [address] Care Team Providers Care Software Asset Manager Name Role Phone Gael Coffman MD Primary Care Provider Unavail able Aram Modi MD Primary Care Provider Yanet Gilmore Pcp Primary Care Provider UnavailRavinder Wallace MD Unavailable [phone] Fabien Burgos NP Unavailable [phone] Aram Modi MD Primary Care Provider Angelica Cardozo MD Unavailable [phone] Encounter Details Date Type Department Care Team Description 11/28/2011 Coremaking Machine Setter Report Medical Records [address] [place] [address] Scott Souza Social History Tobacco Use Types [...] on filedocumented in this encounter Care Teams Software Asset Manager Relationship Specialty Start Date End Date Gael Coffman MD PCP - General 06/10/01 04/21/17 Aram Modi MD PCP - General Internal Medicine 04/22/17 09/10/20 Community, Pcp PCP - General Internal Medicine 09/11/20 02/17/23 Aram Modi MD PCP - General Internal Medicine 02/18/23 Ravinder Jose MD Specialist Cardiology 02/11/23 Fabien Burgos NP Specialist Cardiology 02/11/23 Angelica Price MD [address] [place] [address] Specialist Cardiology 03/11/23 documented as of this encounter
--- OUTSIDE RECORDS SUMMARY | 2024-07-30 13:42 | XMS_ITS | Encounter Summary ---
Author Organization [facility] Address [address] [place] [address] Care Team Providers Care Airframe And Powerplant Mechanic Name Role Phone Gael Coffman MD Primary Care Provider Unavail able Aram Modi MD Primary Care Provider Luis E Parker Primary Care Provider UnavailRavinder Wallace MD Unavailable [phone] Fabien Burgos NP Unavailable [phone] Aram Modi MD Primary Care Provider Angelica Cardozo MD Unavailable [phone] Encounter Details Date Type Department Care Team Description 02/13/2011 Vaccinator Report Medical Records [address] [place] [address] Scott Ugalde MD Social History Tobacco Use [...] on filedocumented in this encounter Care Teams Airframe And Powerplant Mechanic Relationship Specialty Start Date End Date Gael Coffman MD PCP - General 06/10/01 04/21/17 Aram Modi MD PCP - General Internal Medicine 04/22/17 09/10/20 Community, Pcp PCP - General Internal Medicine 09/11/20 02/17/23 Aram Modi MD PCP - General Internal Medicine 02/18/23 Ravinder Jose MD Specialist Cardiology 02/11/23 Fabien Burgos NP Specialist Cardiology 02/11/23 Angelica Price MD [address] [place] [address] Specialist Cardiology 03/11/23 documented as of this encounter
--- OUTSIDE RECORDS SUMMARY | 2024-07-30 13:42 | XMS_ITS | Encounter Summary ---
Author Organization [facility] Address [address] [place] [address] Care Team Providers Care Belt Maker Helper Name Role Phone Ravinder Jose MD Unavailable [phone] Fabien Burgos NP Unavailable [phone] Aram Modi MD Primary Care Provider Angelica Cardozo MD Unavailable [phone] Encounter Details Date Type Department Care Team Description 03/22/2023 Telephone Cardio PVC POC 154 300 [facility] [address] [place] [address] Danny Hammond MD 300 [facility] 154 [place] [address] Social History Tobacco Use Types Packs/Day Years [...] on filedocumented in this encounter Care Teams Belt Maker Helper Relationship Specialty Start Date End Date Aram Modi MD PCP - General Internal Medicine 02/18/23 Ravinder Jose MD Specialist Cardiology 02/11/23 Fabien Burgos NP Specialist Cardiology 02/11/23 Angelica Price MD [address] [place] [address] Specialist Cardiology 03/11/23 documented as of this encounter
--- OUTSIDE RECORDS SUMMARY | 2024-07-30 13:42 | XMS_ITS | Encounter Summary ---
Author Organization [facility] Address [address] [place] [address] Care Team Providers Care Ncqa Specialist Name Role Phone Gael Coffman MD Primary Care Provider Unavail able Aram Modi MD Primary Care Provider Yanet Gilmore Pcp Primary Care Provider UnavailRavinder Wallace MD Unavailable [phone] Fabien Burgos NP Unavailable [phone] Aram Modi MD Primary Care Provider Angelica Cardozo MD Unavailable [phone] Reason for Visit * Reason Onset Date Comments Prior Authorization 10/12/2014 letter of de nial for inspra Encounter Details Date Type Department Care Team Description 10/12/2014 Telephone Adult Medicine [facility] [address] [place] [address] Gael Coffman MD Prior Authorization (letter of [...] on filedocumented in this encounter Care Teams Ncqa Specialist Relationship Specialty Start Date End Date Gael Coffman MD PCP - General 06/10/01 04/21/17 Aram Modi MD PCP - General Internal Medicine 04/22/17 09/10/20 [facility], Pcp PCP - General Internal Medicine 09/11/20 02/17/23 Aram Modi MD PCP - General Internal Medicine 02/18/23 Ravinder Jose MD Specialist Cardiology 02/11/23 Fabien Burgos NP Specialist Cardiology 02/11/23 Angelica Price MD [address] [place] [address] Specialist Cardiology 03/11/23 documented as of this encounter
--- OUTSIDE RECORDS SUMMARY | 2024-07-30 13:42 | XMS_ITS | Encounter Summary ---
Author Organization [facility] Address [address] [place] [address] Care Team Providers Care Retail Planning Manager Name Role Phone Gael Coffman MD Primary Care Provider Unavail able Aram Modi MD Primary Care Provider Luis E Parker Primary Care Provider UnavailRavinder Wallace MD Unavailable [phone] Fabien Burgos NP Unavailable [phone] Aram Modi MD Primary Care Provider Angelica Cardozo MD Unavailable [phone] Encounter Details Date Type Department Care Team Description 11/02/2014 Business Doc Medical Records [address] [place] [address] Abstract, Provider Social History Tobacco Use Types [...] filedocumented in this encounter Care Teams Retail Planning Manager Relationship Specialty Start Date End Date Gael Coffman MD PCP - General 06/10/01 04/21/17 Aram Modi MD PCP - General Internal Medicine 04/22/17 09/10/20 [facility] Pcp PCP - General Internal Medicine 09/11/20 02/17/23 Aram Modi MD PCP - General Internal Medicine 02/18/23 Ravinder Jose MD Specialist Cardiology 02/11/23 Fabien Burgos NP Specialist Cardiology 02/11/23 Angelica Price MD [address] [place] [address] Specialist Cardiology 03/11/23 documented as of this encounter
--- OUTSIDE RECORDS SUMMARY | 2024-07-30 13:42 | XMS_ITS | Encounter Summary ---
Author Organization [facility] Address [address] [place] [address] Care Team Providers Care Taxation Agent Name Role Phone Ravinder Jose MD Unavailable [phone] Fabien Burgos NP Unavailable [phone] Aram Modi MD Primary Care Provider Angelica Cardozo MD Unavailable [phone] Encounter Details Date Type Department Care Team Description 02/24/2023 Carpenter Assistant Installer Report Medical Records [address] [place] [address] Abstract, Provider Social History Tobacco Use Types [...] on filedocumented in this encounter Care Teams Taxation Agent Relationship Specialty Start Date End Date Aram Modi MD PCP - General Internal Medicine 02/18/23 Ravinder Jose MD Specialist Cardiology 02/11/23 Fabien Burgos NP Specialist Cardiology 02/11/23 Angelica Price MD [address] [address] Specialist Cardiology 03/11/23 documented as of this encounter
--- OUTSIDE RECORDS SUMMARY | 2024-07-30 13:42 | XMS_ITS | Encounter Summary ---
Author Organization [facility] Address [address] [place] [address] Care Team Providers Care Guest Services Ambassador Name Role Phone Aram Modi MD Primary Care Provider Unakuldeep Gilmore Pcp Primary Care Provider [facility] Ravinder Salvador MD Unavailable [phone] Fabien Burgos NP Unavailable [phone] Aram Modi MD Primary Care Provider Unava Angelica Russell MD Unavailable [phone] Encounter Details Date Type Department Care Team Description 08/08/2017 Orders Only Medicine/Pediatrics - [address] [address] Aram Modi MD CKD (chronic kidney disease) stage 3, GFR 30-59 ml/min (Primary Dx) Social History Tobacco Use Types [...] encounter Results * (ABNORMAL) BASIC METABOLIC PANEL (08/19/2017 8:51 AM EDT) [facility] GLUCOSE 91 70 - 100 mg/dL 08/19/2017 12:30 PM EDT [facility] Comment: Reference range applicable to fasting specimens only Based on recommendations from the ADA and AACE, the fasting glucose reference range has been changed to 70-100 mg/dL. ??This change is effective October 02, 2009 BUN 48(H) 5 - 25 mg/dL 08/19/2017 12:30 PM EDT [facility] CREAT 1.6(H) 0.7 - 1.5 mg/dL 08/19/2017 12:30 PM EDT [facility] GFR 45(L) >60 08/19/2017 12:30 PM T [facility] Comment: If patient is -Chilean, multiply result by 1.21 Chronic Kidney Disease: < 60 ml/min/1.73 square meters Kidney Failure: < 15 ml/min/1.73 square meters Sodium 142 133 - 145 mEq/L 08/19/2017 12:30 PM EDT [facility] Potassium 4.5 3.5 - 5.5 mEq/L 08/19/2017 12:30 PM EDT [facility] Chloride 105 96 - 108 mEq/L 08/19/2017 12:30 PM [facility] CO2 24.8 21.0 - 32.0 mEq/L 08/19/2017 12:30 PM T [facility] CALCIUM 9.6 8.5 - 10.5 mg/dL 08/19/2017 12:30 PM [facility] 08/19/2017 8:51 AM EDT 08/19/2017 8:52 AM EDT Aram Modi MD LAB Performing Organization Address City/State/[facility] Co de Phone Number [facility] [address] [facility] documented in this encounter Visit Diagnoses Diagnosis CKD (chronic kidney disease) stage 3, GFR 30-59 ml/min (HCC)- Primary Chronic kidney disease, Stage III (moderate) documented in this encounter Care Teams Guest Services Ambassador Relationship Specialty Start Date End Date Aram Modi MD PCP - General Internal Medicine 04/22/17 09/10/20 [facility], Pcp PCP - General Internal Medicine 09/11/20 02/17/23 Aram Modi MD PCP - General Internal Medicine 02/18/23 Ravinder Jose MD Specialist Cardiology 02/11/23 Fabien Burgos NP Specialist Cardiology 02/11/23 Angelica Price MD [address] [place] [address] Specialist Cardiology 03/11/23 documented as of this encounter
--- OUTSIDE RECORDS SUMMARY | 2024-07-30 13:42 | XMS_ITS | Encounter Summary ---
Author Organization [facility] Address [address] [place] [address] Care Team Providers Care Work Ticket Distributor Name Role Phone Ravinder Jose MD Unavailable [phone] Fabien Burgos NP Unavailable [phone] Aram Modi MD Primary Care Provider Angelica Cardozo MD Unavailable [phone] Encounter Details Date Type Department Care Team Description 03/21/2023 Refill Medicine/Pediatrics - [address] [address] Sal Finney PA-C Social History Tobacco Use [...] present documented in this encounter Care Teams Work Ticket Distributor Relationship Specialty Start Date End Date Aram Modi MD PCP - General Internal Medicine 02/18/23 Ravinder Jose MD Specialist Cardiology 02/11/23 Fabien Burgos NP Specialist Cardiology 02/11/23 Angelica Price MD 300 [facility] [address] [place] [address] Specialist Cardiology 03/11/23 documented as of this encounter
--- OUTSIDE RECORDS SUMMARY | 2024-07-30 13:42 | XMS_ITS | Encounter Summary ---
Author Organization [facility] Address [address] [place] [address] Care Team Providers Care Manufacturer'S Representative Name Role Phone Aram Modi MD Primary Care Provider Yanet Gilmore Pcp Primary Care Provider [facility] Ravinder Salvador MD Unavailable [phone] Fabien Burgos NP Unavailable [phone] Aram Modi MD Primary Care Provider Unava Angelica Russell MD Unavailable [phone] Encounter Details Date Type Department Care Team Description 07/08/2017 Telephone Medicine/Pediatrics - [address] [phone] Aram Modi MD Social History Tobacco Use [...] in the past). Please call me at [phone] or send savita chart message to figure out a time to talk. Thanks, Shiv Modi documented in this encounter Plan of Treatment Not on file documented as of this encounter Visit Diagnoses Not on filedocumented in this encounter Care Teams Manufacturer'S Representative Relationship Specialty Start Date End Date Aram Modi MD PCP - General Internal Medicine 04/22/17 09/10/20 [facility] PCP - General Internal Medicine 09/11/20 02/17/23 Aram Modi MD PCP - General Internal Medicine 02/18/23 Ravinder Jose MD Specialist Cardiology 02/11/23 Fabien Burgos NP Specialist Cardiology 02/11/23 Angelica Price MD 300 [facility] [address] [place] [address] Specialist Cardiology 03/11/23 documented as of this encounter
--- OUTSIDE RECORDS SUMMARY | 2024-07-30 13:42 | XMS_ITS | Encounter Summary ---
Author Organization [facility] Address [address] [place] [address] Care Team Providers Care Information Assurance Officer Name Role Phone Gael Coffman MD Primary Care Provider Unavail able Aram Modi MD Primary Care Provider Yanet Gilmore Pcp Primary Care Provider UnavailRavinder Wallace MD Unavailable [phone] Fabien Burgos NP Unavailable [phone] Aram Modi MD Primary Care Provider Angelica Cardozo MD Unavailable [phone] Encounter Details Date Type Department Care Team Description 05/18/2012 [facility] Medical Records [address] [place] [address] Shamar Cortes MD Social History Tobacco Use [...] on filedocumented in this encounter Care Teams Information Assurance Officer Relationship Specialty Start Date End Date Gael Coffman MD PCP - General 06/10/01 04/21/17 Aram Modi MD PCP - General Internal Medicine 04/22/17 09/10/20 [facility], Pcp PCP - General Internal Medicine 09/11/20 02/17/23 Aram Modi MD PCP - General Internal Medicine 02/18/23 Ravinder Jose MD Specialist Cardiology 02/11/23 Fabien Burgos NP Specialist Cardiology 02/11/23 Angelica Price MD [address] [place] [address] Specialist Cardiology 03/11/23 documented as of this encounter
--- OUTSIDE RECORDS SUMMARY | 2024-07-30 13:42 | XMS_ITS | Encounter Summary ---
Author Organization [facility] Address [address] [place] [address] Care Team Providers Care Academic Support Coordinator Name Role Phone Gael Coffman MD Primary Care Provider Unavail able Aram Modi MD Primary Care Provider Yanet Gilmore Pcp Primary Care Provider UnavailRavinder Wallace MD Unavailable [phone] Fabien Burgos NP Unavailable [phone] Aram Modi MD Primary Care Provider Angelica Cardozo MD Unavailable [phone] Encounter Details Date Type Department Care Team Description 02/05/2011 [facility] Medical Records [address] [place] [address] Kasey Ghosh MD Social History Tobacco Use [...] on filedocumented in this encounter Care Teams Academic Support Coordinator Relationship Specialty Start Date End Date Gael Coffman MD PCP - General 06/10/01 04/21/17 Aram Modi MD PCP - General Internal Medicine 04/22/17 09/10/20 [facility], Pcp PCP - General Internal Medicine 09/11/20 02/17/23 Aram Modi MD PCP - General Internal Medicine 02/18/23 Ravinder Jose MD Specialist Cardiology 02/11/23 Fabien Burgos NP Specialist Cardiology 02/11/23 Angelica Price MD [address] [place] [address] Specialist Cardiology 03/11/23 documented as of this encounter
--- OUTSIDE RECORDS SUMMARY | 2024-07-30 13:42 | XMS_ITS | Encounter Summary ---
Author Organization [facility] Address [address] [place] [address] Care Team Providers Care Floor Tiling Professional Name Role Phone Aram Modi MD Primary Care Provider Yanet Gilmore Pcp Primary Care Provider [facility] Ravinder Salvador MD Unavailable [phone] Fabien Burgos NP Unavailable [phone] Aram Modi MD Primary Care Provider Unava Angelica Russell MD Unavailable [phone] Encounter Details Date Type Department Care Team Description 07/22/2017 Telephone Medicine/Pediatrics - [address] [phone] Aram Modi MD Social History Tobacco Use [...] Dr. Garcia * Telephone Encounter - Aram Moid MD - 07/22/2017 1:17 PM EST Spoke [...] on filedocumented in this encounter Care Teams Floor Tiling Professional Relationship Specialty Start Date End Date Aram Modi MD PCP - General Internal Medicine 04/22/17 09/10/20 [facility] PCP - General Internal Medicine 09/11/20 02/17/23 Aram Modi MD PCP - General Internal Medicine 02/18/23 Ravinder Jose MD Specialist Cardiology 02/11/23 Fabien Burgos NP Specialist Cardiology 02/11/23 Angelica Price MD [address] [place] [address] Specialist Cardiology 03/11/23 documented as of this encounter
--- OUTSIDE RECORDS SUMMARY | 2024-07-30 13:42 | XMS_ITS | Encounter Summary ---
Author Organization [facility] Address [address] [place] [address] Care Team Providers Care Sales Center Associate Name Role Phone Ravinder Jose MD Unavailable [phone] Fabien Brugos NP Unavailable [phone] Aram Modi MD Primary Care Provider Angelica Cardozo MD Unavailable [phone] Encounter Details Date Type Department Care Team Description 02/16/2024 SCAN Medical Records [address] [place] [address] Abstract, Provider Social History Tobacco Use Types [...] filedocumented in this encounter Care Teams Sales Center Associate Relationship Specialty Start Date End Date Aram Modi MD PCP - General Internal Medicine 02/18/23 Ravinder Jose MD Specialist Cardiology 02/11/23 Fabien Burgos NP Specialist Cardiology 02/11/23 Angelica Price MD [address] [address] Specialist Cardiology 03/11/23 documented as of this encounter
--- OUTSIDE RECORDS SUMMARY | 2024-07-30 13:42 | XMS_ITS | Encounter Summary ---
Author Organization [facility] Address [address] [place] [address] Care Team Providers Care Tray Drier Operator Name Role Phone Aram Modi MD Primary Care Provider Unakuldeep Gilmore Pcp Primary Care Provider [facility] Ravinder Salvador MD Unavailable [phone] Fabien Burgos NP Unavailable [phone] Aram Modi MD Primary Care Provider Unava Angelica Russell MD Unavailable [phone] Encounter Details Date Type Department Care Team Description 12/22/2017 Pt. Non Urgent Medic al Question Medicine/Pediatrics - [address] [phone] Aram Modi MD Social History Tobacco Use [...] Subject: RX Dear Dr. Modi or attending lead assistant manager Received second call from [facility] with regard to unanswered prescriptiont request from your office. I am in need of these prescriptions olivas urgent. I was contacted by your office last week by someone who made a new appointment and was advised that the scripts would not be held up. Because I need these scripts now [facility] is requesting a phone call to them to expedite these orders. Please respond that this will be taken care of. Thank you, Cy Velez documented in this encounter Plan of Treatment Not on file documented as of this encounter Visit Diagnoses Not on filedocumented in this encounter Care Teams Tray Drier Operator Relationship Specialty Start Date End Date Aram Modi MD PCP - General Internal Medicine 04/22/17 09/10/20 [facility] Pcp PCP - General Internal Medicine 09/11/20 02/17/23 Aram Modi MD PCP - General Internal Medicine 02/18/23 Ravinder Jose MD Specialist Cardiology 02/11/23 Fabien Burgos NP Specialist Cardiology 02/11/23 Angelica Price MD [address] [place] [address] Specialist Cardiology 03/11/23 documented as of this encounter
--- OUTSIDE RECORDS SUMMARY | 2024-07-30 13:42 | XMS_ITS | Encounter Summary ---
Author Organization [facility] Address [address] [place] [address] Care Team Providers Care Flatbed Press Operator Name Role Phone Gael Coffman MD Primary Care Provider Unavail able Aram Modi MD Primary Care Provider Yanet Gilmore Pcp Primary Care Provider UnavailRavinder Wallace MD Unavailable [phone] Fabien Burgos NP Unavailable [phone] Aram Modi MD Primary Care Provider Angelica Cardozo MD Unavailable [phone] Reason for Visit * Reason Onset Date Comments medication problems 10/12/2014 Encounter Details Date Type Department Care Team Description 10/12/2014 Pt. Non Urgent Medical Question Adult Medicine - [place] [address] [place] [address] Gael Coffman MD Social History Tobacco Use [...] on filedocumented in this encounter Care Teams Flatbed Press Operator Relationship Specialty Start Date End Date Gael Coffman MD PCP - General 06/10/01 04/21/17 Aram Modi MD PCP - General Internal Medicine 04/22/17 09/10/20 [facility] PCP - General Internal Medicine 09/11/20 02/17/23 Aram Modi MD PCP - General Internal Medicine 02/18/23 Ravinder Jose MD Specialist Cardiology 02/11/23 Fabien Burgos NP Specialist Cardiology 02/11/23 Angelica Price MD [address] [place] [address] Specialist Cardiology 03/11/23 documented as of this encounter
--- OUTSIDE RECORDS SUMMARY | 2024-07-30 13:42 | XMS_ITS | Encounter Summary ---
Author Organization [facility] Address [address] [place] [address] Care Team Providers Care Boat Builder And Repairer Name Role Phone Ravinder Jose MD Unavailable [phone] Fabien Burgos NP Unavailable [phone] Aram Modi MD Primary Care Provider Angelica Cardozo MD Unavailable [phone] Encounter Details Date Type Department Care Team Description 03/06/2023 SCAN Medical Records [address] [place] [address] Abstract, Provider Social History Tobacco Use Types [...] on filedocumented in this encounter Care Teams Boat Builder And Repairer Relationship Specialty Start Date End Date Aram Modi MD PCP - General Internal Medicine 02/18/23 Ravinder Jose MD Specialist Cardiology 02/11/23 Fabien Burgos NP Specialist Cardiology 02/11/23 Angelica Price MD [address] [place] [address] Specialist Cardiology 03/11/23 documented as of this encounter
--- OUTSIDE RECORDS SUMMARY | 2024-07-30 13:42 | XMS_ITS | Encounter Summary ---
Author Organization [facility] Address [address] [place] [address] Care Team Providers Care Fluorescent Lamp Replacer Name Role Phone Aram Modi MD Primary Care Provider Yanet Gilmore Pcp Primary [facility] Provider [facility] Ravinder Salvador MD Unavailable [phone] Fabien Burgos NP Unavailable [phone] Aram Modi MD Primary Care Provider Unava Angelica Russell MD Unavailable [phone] Encounter Details Date Type Department Care Team Description 03/18/2018 Pt. Non Urgent Medic al Question Medicine/Pediatrics - [address] [address] Aram Modi MD Social History Tobacco Use [...] on filedocumented in this encounter Care Teams Fluorescent Lamp Replacer Relationship Specialty Start Date End Date Aram Modi MD PCP - General Internal Medicine 04/22/17 09/10/20 [facility] Pcp PCP - General Internal Medicine 09/11/20 02/17/23 Aram Modi MD PCP - General Internal Medicine 02/18/23 Ravinder Jose MD Specialist Cardiology 02/11/23 Fabien Burgos NP Specialist Cardiology 02/11/23 Angelica Price MD [address] [place] [address] Specialist Cardiology 03/11/23 documented as of this encounter
--- OUTSIDE RECORDS SUMMARY | 2024-07-30 13:42 | XMS_ITS | Encounter Summary ---
Author Organization [facility] Address [address] [place] [address] Care Team Providers Care Targeteer Name Role Phone Ravinder Jose MD Unavailable Fabien Burgos NP Unavailable [phone] Aram Modi MD Primary Care Provider Angelica Cardozo MD Unavailable [phone] Reason for Visit * Reason Onset Date Comments preop exam 03/16/2024 Encounter Details Date Type Department Care Team Description 03/16/2024 Telephone Cardio PVC [facility] [address] [place] [address] [address] [place] [phone] Ravinder Jose MD [address] [place] [phone] preop exam Social History Tobacco Use Types [...] Caller: Luis Garcia Orthopedic surgery Phone number: [phone] documented in this encounter Plan of Treatment Not on file documented as of this encounter Visit Diagnoses Not on filedocumented in this encounter Care Teams Targeteer Relationship Specialty Start Date End Date Aram Modi MD PCP - General Internal Medicine 02/18/23 Ravinder Jose MD Specialist Cardiology 02/11/23 Fabien Burgos NP Specialist Cardiology 02/11/23 Angelica Price MD [address] [address] Specialist Cardiology 03/11/23 documented as of this encounter
--- OUTSIDE RECORDS SUMMARY | 2024-07-30 13:42 | XMS_ITS | Encounter Summary ---
Author Organization [facility] Address [address] [place] [address] Care Team Providers Care Permit Agent Name Role Phone Ravinder Jose MD Unavailable [phone] Fabien Burgos NP Unavailable [phone] Aram Modi MD Primary Care Provider Angelica Cardozo MD Unavailable [phone] Encounter Details Date Type Department Care Team Description 03/18/2023 SCAN Medical Records [address] [place] [address] Abstract, Provider Social History Tobacco Use Types [...] on filedocumented in this encounter Care Teams Permit Agent Relationship Specialty Start Date End Date Aram Modi MD PCP - General Internal Medicine 02/18/23 Ravinder Jose MD Specialist Cardiology 02/11/23 Fabien Burgos NP Specialist Cardiology 02/11/23 Angelica Price MD [address] [address] Specialist Cardiology 03/11/23 documented as of this encounter
--- OUTSIDE RECORDS SUMMARY | 2024-07-30 13:42 | XMS_ITS | Encounter Summary ---
Author Organization [facility] Address [address] [place] [address] Care Team Providers Care Technical Applications Scientist Name Role Phone Gael Coffman MD Primary Care Provider Unavail able Aram Modi MD Primary Care Provider Yanet Gilmore Pcp Primary Care Provider UnavailRavinder Wallace MD Unavailable Fabien Burgos NP Unavailable [phone] Aram Modi MD Primary Care Provider Angelica Cardozo MD Unavailable [phone] Reason for Visit * Reason Onset Date Comments other 08/26/2014 Encounter Details Date Type Department Care Team Description 08/26/2014 Pt. Non Urgent Medical Question Adult Medicine - [place] [address] [place] [address] Gael Coffman MD Social History Tobacco Use [...] OrtizPDaisyNDaisy - 08/26/2014 2:53 PM EDTFrom: Cy Velez To: Gael Coffman MD Sent: 08/26/2014 2:52 PM EDT Subject: Returned phone call Tried returning call. Instructions were to call [phone] Dr. Coffman's office. Because no name was given they could not connect me. Feel the call was in reference to B 12 injections documented in this encounter Plan of Treatment Not on file documented as of this encounter Visit Diagnoses Not on filedocumented in this encounter Care Teams Technical Applications Scientist Relationship Specialty Start Date End Date Gael Coffman MD PCP - General 06/10/01 04/21/17 Aram Modi MD PCP - General Internal Medicine 04/22/17 09/10/20 [facility] Pcp PCP - General Internal Medicine 09/11/20 02/17/23 Aram Modi MD PCP - General Internal Medicine 02/18/23 Ravinder Jose MD Specialist Cardiology 02/11/23 Fabien Burgos NP Specialist Cardiology 02/11/23 Angelica Price MD [address] [place] [address] Specialist Cardiology 03/11/23 documented as of this encounter
--- OUTSIDE RECORDS SUMMARY | 2024-07-30 13:42 | XMS_ITS | Encounter Summary ---
Author Organization [facility] Address [address] [place] [address] Care Team Providers Care Pet Ambassador Name Role Phone Gael Coffman MD Primary Care Provider Unavail able Aram Modi MD Primary Care Provider Yanet Gilmore Pcp Primary Care Provider UnavailRavinder Wallace MD Unavailable [phone] Fabien Burgos NP Unavailable [phone] Aram Modi MD Primary Care Provider Angelica Cardozo MD Unavailable [phone] Encounter Details Date Type Department Care Team Description 12/19/2011 Release of Information Medical Records [address] [place] [address] Abstract, Provider Social History Tobacco Use Types [...] on filedocumented in this encounter Care Teams Pet Ambassador Relationship Specialty Start Date End Date Gael Coffman MD PCP - General 06/10/01 04/21/17 Aram Modi MD PCP - General Internal Medicine 04/22/17 09/10/20 [facility], Pcp PCP - General Internal Medicine 09/11/20 02/17/23 Aram Modi MD PCP - General Internal Medicine 02/18/23 Ravinder Jose MD Specialist Cardiology 02/11/23 Fabien Burgos NP Specialist Cardiology 02/11/23 Angelica Price MD [address] [place] [address] Specialist Cardiology 03/11/23 documented as of this encounter
--- OUTSIDE RECORDS SUMMARY | 2024-07-30 13:42 | XMS_ITS | Encounter Summary ---
Author Organization [facility] Address [address] [place] [address] Care Team Providers Care Gas Main Fitter Name Role Phone Ravinder Jose MD Unavailable [phone] Fabien Burgos NP Unavailable [phone] Aram Modi MD Primary Care Provider Angelica Cardozo MD Unavailable [phone] Encounter Details Date Type Department Care Team Description 07/12/2023 Pt. Non Urgent Medical Question Cardio [facility] [address] [place] [phone] Fabien Burgos, LEAH [address] [place], [place] [id number] Social History Tobacco Use Types Packs/Day Years [...] filedocumented in this encounter Care Teams Gas Main Fitter Relationship Specialty Start Date End Date Aram Modi MD PCP - General Internal Medicine 02/18/23 Ravinder Jose MD Specialist Cardiology 02/11/23 Fabien Burgos NP Specialist Cardiology 02/11/23 Angelica Price MD [address] [place] [address] Specialist Cardiology 03/11/23 documented as of this encounter
--- OUTSIDE RECORDS SUMMARY | 2024-07-30 13:42 | XMS_ITS | Encounter Summary ---
Author Organization [facility] Address [address] [place] [address] Care Team Providers Care Solderer Barrel Ribs Name Role Phone Ravinder Jose MD Unavailable [phone] Fabein Burgos NP Unavailable [phone] Aram Modi MD Primary Care Provider Angelica Cardozo MD Unavailable [phone] Reason for Visit * Reason Onset Date Comments Shortness Of Breath 10/09/2023 Encounter Details Date Type Department Care Team Description 10/09/2023 Telephone Cardio [facility] [address] [place] [phone] Ravinder Jose MD [address] [place] [phone] Shortness Of Breath Social History Tobacco Use [...] documented as of this encounter Results * VT XTRNL ECG & 48 HR RECORD SCAN STOR W/R&I (10/21/2023) Fabien Burgos NP CARDIOLOGY [facility] documented in this encounter Visit Diagnoses Diagnosis Palpitations- Primary documented in this encounter Care Teams Solderer Barrel Ribs Relationship Specialty Start Date End Date Aram Modi MD PCP - General Internal Medicine 02/18/23 Ravinder Jose MD Specialist Cardiology 02/11/23 Fabien Burgos NP Specialist Cardiology 02/11/23 Angelica Price MD [address] [place] [address] Specialist Cardiology 03/11/23 documented as of this encounter
--- OUTSIDE RECORDS SUMMARY | 2024-07-30 13:42 | XMS_ITS | Encounter Summary ---
Author Organization [facility] Address [address] [place] [address] Care Team Providers Care Yard Foreman Name Role Phone Ravinder Jose MD Unavailable [phone] Fabien Burgos NP Unavailable [phone] Aram Modi MD Primary Care Provider [facility] hospital[facility]ica Hahn MD Unavailable [phone] Encounter Details Date Type Department Care Team Description 03/22/2023 [facility] Medical Records [address] [place] [address] Social History Tobacco Use Types Packs/Day Years [...] on filedocumented in this encounter Care Teams Yard Foreman Relationship Specialty Start Date End Date Aram Modi MD PCP - General Internal Medicine 02/18/23 Ravinder Jose MD Specialist Cardiology 02/11/23 Fabien Burgos NP Specialist Cardiology 02/11/23 Angelica Price MD [address] [facility] [address] [place] [address] Specialist Cardiology 03/11/23 documented as of this encounter
--- OUTSIDE RECORDS SUMMARY | 2024-07-30 13:42 | XMS_ITS | Encounter Summary ---
Author Organization [facility] Address [address] [place] [address] Care Team Providers Care Public Improvement Inspector Name Role Phone Aram Modi MD Primary Care Provider Unakuldeep Gilmore, Pcp Primary Care Provider Unavailabl Ravinder Salvador MD Unavailable [phone] Fabien Burgos NP Unavailable [phone] Aram Modi MD Primary Care Provider Unava Angelica Russell MD Unavailable [phone] Encounter Details Date Type Department Care Team Description 09/01/2017 Orders Only Medicine/Pediatrics - [address] [address] Aram Modi MD Social History Tobacco Use [...] filedocumented in this encounter Care Teams Public Improvement Inspector Relationship Specialty Start Date End Date Aram Modi MD PCP - General Internal Medicine 04/22/17 09/10/20 [facility], Pcp PCP - General Internal Medicine 09/11/20 02/17/23 Aram Modi MD PCP - General Internal Medicine 02/18/23 Ravinder Jose MD Specialist Cardiology 02/11/23 Fabien Burgos NP Specialist Cardiology 02/11/23 Angelica Price MD [address] [place] [address] Specialist Cardiology 03/11/23 documented as of this encounter
--- OUTSIDE RECORDS SUMMARY | 2024-07-30 13:43 | XMS_ITS | Encounter Summary ---
Author Organization [facility] Address [address] [place] [address] Care Team Providers Care Joss House Keeper Name Role Phone Aram Modi MD Primary Care Provider Yanet Glimore Pcp Primary Care Provider UnavailRavinder Wallace MD Unavailable [phone] Fabien Burgos NP Unavailable [phone] Aram Modi MD Primary Care Provider Angelica Cardozo MD Unavailable [phone] Encounter Details Date Type Department Care Team Description 04/15/2018 Transfer Records Medical Records [address] [place] [address] Abstract, Provider Social History Tobacco Use Types [...] on filedocumented in this encounter Care Teams Joss House Keeper Relationship Specialty Start Date End Date Aram Modi MD PCP - General Internal Medicine 04/22/17 09/10/20 [facility], Pcp PCP - General Internal Medicine 09/11/20 02/17/23 Aram Modi MD PCP - General Internal Medicine 02/18/23 Ravinder Jose MD Specialist Cardiology 02/11/23 Fabien Burgos NP Specialist Cardiology 02/11/23 Angelica Price MD [address] [address] Specialist Cardiology 03/11/23 documented as of this encounter
--- OUTSIDE RECORDS SUMMARY | 2024-07-30 13:43 | XMS_ITS | Encounter Summary ---
Author Organization [facility] Address [address] [place] [address] Care Team Providers Care Route Sales Associate Name Role Phone Gael Coffman MD Primary Care Provider Unavail able Aram Modi MD Primary Care Provider Yanet Gilmore Pcp Primary Care Provider UnavailRavinder Wallace MD Unavailable Fabien Burgos NP Unavailable [phone] Aram Modi MD Primary Care Provider Angelica Cardozo MD Unavailable [phone] Encounter Details Date Type Department Care Team Description 10/09/2014 Pt. Non Urgent Medical Question Adult Medicine B - [place] [address] [place] [address] Gael Coffman MD Social History Tobacco Use [...] Notes * Molly Benítez L.P.N. - 10/11/2014 8:28 AM EDTFrom: Cy Barrera Rosie To: Gael Coffman MD Sent: 10/09/2014 10:23 AM EDT Subject: Inspra / Tier Exception Dear Dr. Coffman, Please note this message will be in two parts as My Chart does not allow sufficient time to enter somewhat longer request. First my recent script for Inspra was only written for half or 90 tabs. As you are aware and as in my chart I take two. Please send in script for additional 90 tabs. Please see next request before sending in this script documented in this encounter Plan of Treatment Not on file documented as of this encounter Visit Diagnoses Not on filedocumented in this encounter Care Teams Route Sales Associate Relationship Specialty Start Date End Date Gael Coffman MD PCP - General 06/10/01 04/21/17 Aram Modi MD PCP - General Internal Medicine 04/22/17 09/10/20 [facility], Pcp PCP - General Internal Medicine 09/11/20 02/17/23 Aram Modi MD PCP - General Internal Medicine 02/18/23 Ravinder Jose MD Specialist Cardiology 02/11/23 Fabien Burgos NP Specialist Cardiology 02/11/23 Angelica Price MD [address] [place] [address] Specialist Cardiology 03/11/23 documented as of this encounter
== END 2024-07-30 12:10 | disposition home or self-care (01) ==
LOC: HO.HOS 11:52
PROVIDERS: Visit Provider Physician Assistant
DX: Z96.651 Presence of right artificial knee joint (principal)
CPT/HCPCS: 99024

== ENCOUNTER → 2024-07-30 11:52 | Outpatient (BNVA) | payer MEDICARE, SELFPAY | PROVIDERS: Visit Provider Physician Assistant | DX: Z47.1 Aftercare following joint replacement surgery (principal); Z96.651 Presence of right artificial knee joint | CPT/HCPCS: 99212 ==

== ENCOUNTER 2024-08-05 12:34 | Outpatient (AMB) | payer MEDICARE, SELFPAY ==
[2024-08-05 12:43] VITALS: BMI 29.2
--- NOTE | 2024-08-05 12:43 | MHC.OFFVIS ---
Vital Signs 08/05/24 12:43 Height 5 ft 6 in Weight 181 lb BMI 29.2 Intake Visit Reasons: 6WK PO: R TKA w/DR 06/28/24 Intake Note: Cy is a 84 year old male who presents with complaints of mild to moderate discomfort in his right knee after undergoing right total knee replacement surgery on 06/28/2024. He continues with his physical therapy exercises. He is no longer walking with a cane. He takes just Tylenol and Celebrex for his discomfort. He is no longer taking oxycodone. Allergies lactose [LACTOSE] Allergy (Severe, Verified 08/05/24 12:44) Diarrhea morphine [MORPHINE] Allergy (Intermediate, Verified 08/05/24 12:44) INVOLUNTARY SPASMS atenolol Adverse Reaction (Intermediate, Verified 08/05/24 12:44) Nausea Medication List - Last Reconciled 08/05/24 by Gordo Deng MD acetaminophen 650 mg (2 x 325 mg) PO Q6H PRN 30 days allopurinol 150 mg PO DAILY amoxicillin 2,000 mg (4 x 500 mg) PO ONCE 1 day aspirin 325 mg PO BID 42 days atorvastatin 40 mg PO QPM carvedilol 6.25 mg PO BID celecoxib 200 mg PO BID 30 days cholecalciferol (vitamin D3) (Vitamin D3) 50 mcg PO DAILY docusate sodium 100 mg PO BID 30 days eplerenone 50 mg PO DAILY finasteride 5 mg PO DAILY hydrochlorothiazide 12.5 mg PO DAILY levothyroxine 88 mcg PO QAM omeprazole 20 mg PO DAILY oxycodone 10 mg PO Q4H PRN 7 days prednisone 1 mg PO Q OTHER DAY sacubitril-valsartan 49-51 mg (Entresto) 1 tab PO BID tamsulosin 0.4 mg PO BEDTIME walker Folding front wheeled walker [facility] Medical History Arthritis Back pain Anemia Hiatal hernia Murmur Scarlet fever Hyperlipidemia Chronic rhinitis Elevated PSA Thyroid disease HTN (hypertension) Gout CKD (chronic kidney disease) stage 3, GFR 30-59 ml/min Sleep apnea Internal hemorrhoids Polymyalgia rheumatica Chronic pruritus Lung cancer Functional diarrhea Osteoarthritis BPH (benign prostatic hyperplasia) Serrated polyp of colon Cystic mass of pancreas IBS (irritable bowel syndrome) Venous insufficiency of both lower extremities PVC (premature ventricular contraction) Cardiomyopathy Chest pain Coronary artery 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 artery Second degree heart block Cardiac resynchronization therapy pacemaker (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) in 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 Surgical History H/O hemorrhoidectomy Hx of lumbosacral spine surgery Hx of bilateral cataract extraction Hx of removal of cyst Hx of inguinal hernia repair Hx of cholecystectomy H/O colonoscopy History of esophagogastroduodenoscopy (EGD) History of lobectomy of lung History of permanent cardiac pacemaker placement Hx of arthroscopy of left knee Hx of cardiac catheterization Social History Are you a primary animal care supervisor to a significant other at home: No Do you presently have visiting nurse or other home services: No Patient Tobacco Use Status: Former Tobacco user service: No Physical Exam Vital Signs: BMI result Body Mass Index 29.2 Extrem Other: Right knee examination shows that the surgical incision is well healed, no erythema, full active extension and flexion to 115 degrees, his patella tracks well Assessment & Plan Assessment & Plan (1) Right knee pain: Code(s): M25.561 - Pain in right knee Category: Medical Plan Mr. Velez continues to do well after undergoing right total knee replacement surgery on 06/28/2024. I discussed with the patient the fact that his swelling will continue to resolve over the next few months. He will continue with his physical therapy exercises. He will contact me prior to his follow-up appointment in 2-3 months should any questions or concerns arise. Feel free to call me at any time should questions regarding his orthopedic management arise. Coding Level of Care Code Global (17255) Diagnoses Right knee pain M25.561
--- OUTSIDE RECORDS SUMMARY | 2024-08-05 14:57 | XMS_ITS | Clinical Summary ---
Author Organization [address] [place] [address] [place] [phone] Phone Care Team Providers Care General Store Manager Name Role Phone Aram Modi MD Primary Care Provider [phone] Allergies Active Allergy Reactions Criticality Noted Date [...] (Entresto) 49-51 mg per tabletIndications:O ther cardiomyopathy Take 1 tablet by mouth 2 (two) [...] 12 lead Coronary artery disease invo lving [place] coronary artery of [place] heart without angina pectoris 02/18/2023 Cardiomyopathy 02/17/2023 [...] 08/26/2014 Obstructive sleep apnea 03/29/2014 Overview (03/04/2024): [facility] Home Polysomnogram: Date 02/13/2017; AHI 12, [...] Department Care Team Description 06/16/2024 Telephone [facility] Cardiology [facility] [address] [facility] [place] [address] Aram Modi MD Medical Records 05/25/2024 7:30 PM EST Ancillary Procedure [facility] Cardiology [facility] [address] [place] [phone] 05/20/2024 Telephone [facility] [address] [place] [phone] Aram Modi MD Medical Records 05/18/2024 7:30 AM EST Ancillary Procedure [facility] [address] [place] [phone] Suspected DVT (deep vein thrombosis); Chest pain on breathing 05/17/2024 1:30 PM EST Consult [facility] [address] [place] [phone] Brooklynn Church MD Other cardiomyopathy (CMS/HCC) (Primary Dx); Primary hypertension; Pure hypercholesterolemia; Stage 3 chronic kidney disease, unspecified whether stage 3a or 3b CKD (CMS/HCC); Polymyalgia rheumatica (CMS/HCC); Second degree heart block; Suspected DVT (deep vein thrombosis); Chest pain on breathing 05/13/2024 Telephone [facility] [address] [place] [address] Brooklynn Church MD from Last 3 Months Immunizations Name Administration Dates Next Due Influenza Quadravalent, 0.5m l (Fluad) 65yo and older 04/15/2022 Influenza trivalent, 0.5mL ( Fluad) 65yo and older 02/14/2020,02/17/2017 Influenza trivalent, 0.5mL, preservative free (Fluarix; FluLaval; Fluzone) ages 6mo and older (Afluria) 3 years and older 02/27/2015,05/02/2014,04/01/2012,02/07,03/22/2008,03/22/2005 Influenza, Unspecified 03/16/2019,02/26/2016 PPD Test 06/23/2000 Pfizer SARS-CoV-2 COVID-19, mRNA, LNP-S, preservative free 07/23/2020,06/25/2020 Pneumococcal conjugate 13 va lent (Prevnar 13, PCV13) 2mo and older 11/02/2014 Pneumococcal polysaccharide 23 valent (Pneumovax 23) 2yo and older 09/16/2013,01/15/2002 Td Tetanus diptheria (Tdvax) 7yo and older 11/29/2008 Tdap Tetanus diptheria acell ular pertussis (Boostrix; Adacel) 7yo and older 05/17/2016 Zoster Live 12/24/2013 Surgical History Surgery Date Site/Laterality Comments OTHER SURGICAL HISTORY 2004 PROCEDURE: RI RMVL LUNG OTHER THAN PNEUMONECTOMY 1 LOBE LOBECT; COMMENT: LLL for Ca OTHER SURGICAL HISTORY 05/22/12 PROCEDURE: NUCLEAR STRESS TEST REPORT; COMMENT: Nerissa Villanueva, Neg OTHER SURGICAL HISTORY 01/30 PROCEDURE: OUTSIDE NUCLEAR STRESS TEST; COMMENT: neg OTHER SURGICAL HISTORY 01/30 PROCEDURE: CTA CHEST; W/WO CONTRAST MAT; COMMENT: neg COLONOSCOPY 06/29/04 PROCEDURE: HISTORICAL COLONOSCOPY; COMMENT: Nataly perry COLONOSCOPY 03/01 [facility] PROCEDURE: HISTORICAL COLONOSCOPY; COMMENT: devika Shipley; otherwise normal to terminal ileum with normal colonic bxys. UPPER GASTROINTESTINAL ENDOSCOPY 03/01 [facility] PROCEDURE: RI UPPER GI ENDOSCOPY PERFORMED; COMMENT: NOrmal, with normal duodenal biopsies UPPER GASTROINTESTINAL ENDOSCOPY 12/26/2010 PROCEDURE: RI UPPER GI ENDOSCOPY PERFORMED; COMMENT: Minimal erosive gastritis; [facility]; bx negative for H. pylori. KNEE SURGERY 2016 PROCEDURE: HISTORICAL KNEE SURGERY Medical History Medical History Date Comments BPH (benign prostatic hyperplasia) 09/15/2017 DX:BPH (benign prostatic hyperplasia) Chronic pruritus 10/23/2015 DX:Chronic prur itus Chronic rhinitis 03/22/2008 DX:Chronic rhin itis CKD (chronic kidney disease) stage 3, GFR 30-59 ml/min ([facility]/HCC) 10/28/2013 DX:CKD (chronic kidney dise ase) [...] apnea 03/29/2014 DX:Obstr uctive sleep apnea; COMMENT: [facility] Home Polysomnogram: Date 02/13/2017; AHI 12, [...] [facility] [address] [place] [phone] Fabien Burgos NP [address] [place] [address] [address] [place] [address] 04/20/2025 8:00 AM EST Ancillary Procedure [facility] Cardiology [facility] [address] [place] [phone] Health Maintenance Due Date Last Done Comments [...] this topic Medical Devices Implanted Type Area Applications Sales Representative Device Identifier Shelf Expiration Date Model / Serial / Lot Bsci-Crm [id number] Implanted:02/16 (Quantity not on file) Cardiac FLOOR COVERER APPRENTICE-P [employer] MGMT [id number] / [id number] / Procedures Procedure Name Priority Date/Time Associated [...] 7:29 PM EST) Date Time Interrogation Session [id number] CV DEVICE CHECK Type Interrogation Session Remote Scheduled CV DEVICE CHECK Implantable Pulse Generator Applications Sales Representative BSX CV DEVICE CHECK Implantable Pulse Generator Type FLOOR COVERER APPRENTICE-P CV DEVICE CHECK Implantable Pulse Generator Model U128 CV DEVICE CHECK Implantable Pulse Generator Serial Number [id number] CV DEVICE CHECK Implantable Pulse Generator Implant Date 20230305 CV DEVICE CHECK Battery Remaining Percentage 100.00 CV DEVICE CHECK Battery Remaining Longevity 114.0 CV DEVICE CHECK Battery Status Beginning of Service CV DEVICE CHECK Ayan Statistic RA Percent Paced 41.00 CV DEVICE CHECK Ayan Statistic RV Percent Paced 100.00 CV DEVICE CHECK FLOOR COVERER APPRENTICE Statistic LV Percent Paced 100.00 CV DEVICE CHECK Atrial Tachy Statistic AT/AF [place] Percent 0.00 CV DEVICE CHECK Lead Channel [...] CV DEVICE CHECK Ventricular chambers paced during FLOOR COVERER APPRENTICE pacing. BiV CV DEVICE CHECK Ayan Setting Lower Rate Limit 60 CV DEVICE CHECK Ayan Setting AT Mode Switch Rate 170 CV DEVICE CHECK Ayan Setting Maximum Tracking Rate 130 CV DEVICE CHECK Ayan Setting Maximum Sensor Rate 130 CV DEVICE CHECK Ayan Setting PAV Delay 150 CV DEVICE CHECK Ayan Setting SUZY Delay 100 CV DEVICE CHECK FLOOR COVERER APPRENTICE LV-RV Delay 0 CV D EVICE CHECK [...] us Darleen FISCHER CV IMPLANTABLE CARDIAC DEVICE RI OCEDURES Final Result * Vascular US duplex [...] the left leg. The vessels showed compressibility. Banquet Pilot Details A call scale, color and doppler analysis ultrasound was performed. During the study longitudinal and transverse views were obtained. Pulsed wave doppler was performed. Brooklynn Church MD CV VASCULAR PROCEDURES Final R esult * ECG 12 lead (05/17/2024 1:22 PM EST) [facility] Ventricular Rate ECG 60 BPM GEMUSE Atrial Rate 60 BPM GEMUSE P-R Interval 178 ms GEMUSE QRS Duration 140 ms GEMUSE Q-T Interval 466 ms GEMUSE QTc 466 ms GEMUSE P Wave [place] 25 degrees GEMUSE R Uneeda 0 degrees GEMUSE T [place] 82 degrees GEMUSE ECG Interpretation AV dual-paced rhythm Abnormal ECG When compared with ECG of 27-AUG-2004 14:55, Electronic ventricular pacemaker has replaced Sinus rhythm Confirmed by BROOKLYNN CHURCH ([id number]) on 05/17/2024 2:55:34 PM GEMUSE 05/17/2024 1:22 PM EST 05/17/2024 2:55 PM EST Brooklynn Church MD ECG ORDERABLES Final Result GEMUSE * Annual BMP Blood Test (12/02/2022) [facility] Annual BMP Blood Test abstracted Result [facility] Historical Provider HEALTH MAINTENANCE Final Result * (ABNORMAL) Lipid panel (09/28/2019) [facility] LDL/HDL Ratio 4 0 - 4 Triglycerides 290(A) 0 - 150 mg/dL Cholesterol 192 0 - 200 mg/dL HDL 51 >=40 mg/dL LDL Cholesterol 83 0 - 100 mg/dL Blood Venous blood specimen / Unknown Result [facility] Historical Provider LAB BLOOD ORDERABLES Frida l Result from Last 3 Months or Most Recently Relevant to Health Maintenance Insurance MEDICARE [facility] Care Teams General Store Manager Relationship Specialty Start Date End Date Aram Modi MD [address] [place] [id number] PCP - General 04/22/17
--- OUTSIDE RECORDS SUMMARY | 2024-08-05 14:57 | XMS_ITS | Clinical Summary ---
Author Organization [facility] Address [address] [place] [address] Care Team Providers Care Fire Official Name Role Phone Gale Coffman MD Primary Care Provider [phone] Allergies Active Allergy Reactions Criticality Noted Date [...] age to complete this topic Care Teams Fire Official Relationship Specialty Start Date End Date Gael Coffman MD PCP - General Endocrinology 12/19/16
--- OUTSIDE RECORDS SUMMARY | 2024-08-05 14:57 | XMS_ITS | Clinical Summary ---
Author Organization Unknown Care Team Providers Care Shell Worker Name Role Phone MICHAEL PIZANO, STACIE Unavailable Unavailable CLARISA NURSE EXAMINER, NELL Unavailable Unavailable FLOYR PT, NELIDA Unavailable Unavail able Payers Payer Name Policy Type Policy Number Effective Date Expira tion Date MEDICARE.[facility].PDGM [id number] Problems Condition Name Condition Details Condition Category [...] 05-19 00:00: 00 ATHSCL HEART DISEASE OF [place] CORONARY ARTERY W/O ANG PCTRS Active 05-19 [...] capsule,del ayed release 06-02 00:00: 00 Yes [id number] REFLUX/GERD Per instruc tions DAILY Per instructio ns DAILY (route: oral) Med Classific ation: Gastroint estinal Therapy Agents tamsulosin 0.4 mg capsule 06-02 00:00: 00 Yes [id number] NA Per instruc tions DAILY Per instructio ns DAILY (route: oral) Alternate Route: BY MOUTH. Med Classific ation: Genitouri nary Therapy levothyroxi ne 88 mcg tablet 05-28 00:00: 00 Yes [id number] ENDOCRINE Per instruc tions DAILY Per instructio ns DAILY (route: oral) Med Classific ation: Endocrine finasteride 5 mg tablet 05-27 00:00: 00 Yes [id number] HAIR LOSS Per instruc tions DAILY Per instructio ns DAILY (route: oral) Med Classific ation: Genitouri nary Therapy eplerenone 50 mg tablet 2023-05 2-31 00:00: 00 Yes [id number] HIGH BLOOD PRESSURE Per instruc tions DAILY Per instructio ns DAILY (route: oral) Med Classific ation: Cardiovas cular Therapy Agents hydrochloro thiazide 25 mg tablet 2023-05 2-19 00:00: 00 Yes [id number] HTN Per instruc tions ONCE DAILY Per instructio ns ONCE DAILY (route: oral) Med Classific ation: Cardiovas cular Therapy Agents celecoxib 200 mg capsule 2-11 00:00: 00 Yes [id number] NSAID Per instruc tions 2 TIMES DAILY Per instructio ns 2 TIMES DAILY (route: oral) Med Classific ation: Analgesic , Anti-infl ammatory or Antipyret ic oxycodone 10 mg tablet 2-11 00:00: 00 Yes [id number] PAIN 1 tablet EVERY 4 HOURS 1 tablet EVERY 4 HOURS (route: oral) Med Classific ation: Analgesic , Anti-infl ammatory or Antipyret ic carvedilol 6.25 mg tablet 2-10 00:00: 00 Yes [id number] BETA MICHAEL Per instruc tions TWICE DAILY Per instructio ns TWICE DAILY (route: oral) Med Classific ation: Cardiovas cular Therapy Agents atorvastati n 40 mg tablet 2-07 00:00: 00 Yes [id number] HTN Per instruc tions AT BEDTIME Per instructio ns AT BEDTIME (route: oral) Med Classific ation: Cardiovas cular Therapy Agents omeprazole 20 mg capsule,del ayed release 1-27 00:00: 00 Yes [id number] GERD Per instruc tions TWICE DAILY Per instructio ns TWICE DAILY (route: oral) Med Classific ation: Gastroint estinal Therapy Agents tamsulosin 0.4 mg capsule 1-15 00:00: 00 Yes [id number] NA Per instruc tions DAILY Per instructio ns DAILY (route: oral) Med Classific ation: Genitouri nary Therapy acetaminoph en ER 650 mg tablet,exte nded release 2-13 00:00: 00 Yes [id number] PAIN 1 tablet EVERY 6 HOURS 1 tablet EVERY 6 HOURS (route: oral) Med Classific ation: Analgesic , Anti-infl ammatory or Antipyret ic aspirin 325 mg tablet,vasquez yed release 06-28 00:00: 00 07-27 23:59 :00 No [id number] BLOOD THINNER 1 tablet 2 TIMES DAILY 1 tablet 2 TIMES DAILY (route: oral) Med Classific ation: Analgesic , Anti-infl ammatory or Antipyret ic cholecalcif lonny (vitamin D3) 50 mcg (2,000 unit) capsule 06-28 00:00: 00 Yes [id number] CALCIUM ABSORPTION 1 capsule DAILY 1 capsule DAILY (route: oral) Med Classific ation: Electroly te Balance-N utritiona l Products docusate sodium 100 mg capsule 06-28 00:00: 00 Yes [id number] STOOL SOFTENER 1 capsule 2 TIMES DAILY 1 capsule 2 TIMES DAILY (route: oral) Med Classific ation: Gastroint estinal Therapy Agents prednisone 1 mg tablet 06-28 00:00: 00 Yes [id number] NA 1 tablet EVERY OTHER DAY 1 tablet EVERY OTHER DAY (route: oral) Med Classific ation: Endocrine Vital Signs Vital Name Observation Time Observation Value Commen ts Temperature 2024-07-30 09:35:00.000 97.9 [degF] Temperature 2024-07-27 09:31:00.000 98.1 [degF] Temperature 2024-07-23 09:30:00.000 98.1 [degF] Temperature 2024-07-23 08:36:00.000 98.1 [degF] Temperature 2024-07-14 12:58:00.000 98.1 [degF] Temperature 2024-07-13 09:50:00.000 98.1 [degF] Temperature 2024-07-09 09:20:00.000 98.1 [degF] Temperature 2024-07-07 11:40:00.000 98.1 [degF] Temperature 2024-07-06 10:51:00.000 98.1 [degF] Temperature 2024-07-02 13:44:00.000 98.1 [degF] Temperature 2024-07-01 15:51:00.000 98.6 [degF] BMI (%) 2024-07-01 15:51:00.000 28 kg/m2 Height 2024-07-01 15:51:00.000 65 [in_us] Pulse 2024-07-30 09:35:00.000 64 /min Pulse 2024-07-27 09:31:00.000 80 /min Pulse 2024-07-23 09:30:00.000 72 /min Pulse 2024-07-23 08:36:00.000 74 /min Pulse 2024-07-14 12:58:00.000 72 /min Pulse 2024-07-13 09:50:00.000 72 /min Pulse 2024-07-09 09:20:00.000 72 /min Pulse 2024-07-07 11:40:00.000 72 /min Pulse 2024-07-06 10:51:00.000 72 /min Pulse 2024-07-02 13:44:00.000 76 /min Pulse 2024-07-01 15:51:00.000 65 /min O2 Saturation (%) 2024-07-30 09:36:00.000 97 % O2 Saturation (%) 2024-07-27 09:31:00.000 98 % [...] Saturation (%) 2024-07-01 15:51:00.000 93 % Respirations 2024-07-30 09:35:00.000 17 /min Respirations 2024-07-27 09:31:00.000 16 /min Respirations 2024-07-23 09:30:00.000 16 /min Respirations 2024-07-23 08:36:00.000 16 /min Respirations 2024-07-14 12:58:00.000 16 /min Respirations 2024-07-13 09:50:00.000 16 /min Respirations 2024-07-09 09:20:00.000 17 /min Respirations 2024-07-07 11:40:00.000 16 /min Respirations 2024-07-06 10:51:00.000 16 /min Respirations 2024-07-02 13:44:00.000 16 /min Respirations 2024-07-01 15:51:00.000 18 /min Weight (lbs) 2024-07-01 15:51:00.000 173 [lb_av] Systolic Blood Pressure 2024-07-30 09:36:00.000 118 mm [Hg] Systolic Blood Pressure 2024-07-27 09:31:00.000 110 mm [...] 15:51:00.000 118 mm [Hg] Diastolic Blood Pressure 2024-07-30 09:36:00.000 60 mm [Hg] Diastolic Blood Pressure 2024-07-27 09:31:00.000 [...] Comments Future Scheduled Test BED MOBILI TY (PT/NURSE EXAMINER) [code = BED MOBILITY (PT/NURSE EXAMINER)] Future Scheduled Test PT/NURSE EXAMINER TO PROVIDE GAIT TRAINING FOR IMPROVED MOBILITY AND /OR TO NORMALIZE GAIT PATTERN [code = PT/NURSE EXAMINER TO PROVIDE GAIT TRAINING FOR IMPROVED MOBILITY AND /OR TO NORMALIZE GAIT PATTERN] Future Scheduled Test THERAPEUTI C EXERCISES AND ESTABLISHING A HOME EXERCISE PROGRAM (PT/NURSE EXAMINER) [code = THERAPEUTIC EXERCISES AND ESTABLISHING A HOME EXERCISE PROGRAM (PT/NURSE EXAMINER)] Future Scheduled Test PT/NURSE EXAMINER TO PROVIDE STAIR TRAINING [code = PT/NURSE EXAMINER TO PROVIDE STAIR TRAINING] Future Scheduled Test PT / NURSE EXAMINER T O MONITOR AND EDUCATE ON OXYGEN SATURATION DURING ADLS/IADLS, NOTIFY PHYSICIAN AND/OR THE RN CLINICAL DIRECTOR OF NEUROLOGY FOR PHYSICIAN NOTIFICATION AND IF O2 SATS BELOW PHYSICIAN ORDERED PARAMETERS AFTER 10 MIN OF REST [code = PT / NURSE EXAMINER TO MONITOR AND EDUCATE ON OXYGEN SATURATION DURING ADLS/IADLS, NOTIFY PHYSICIAN AND/OR THE RN CLINICAL DIRECTOR OF NEUROLOGY FOR PHYSICIAN NOTIFICATION AND IF O2 SATS BELOW PHYSICIAN ORDERED PARAMETERS AFTER 10 MIN OF REST] Future Scheduled Test PT / NURSE EXAMINER M AY EDUCATE ON PAIN MANAGEMENT CLINICALLY INDICATED, INCLUDING NON-PHARMACOLOGICAL PAIN REDUCTION TECHNIQUES AND USE OF CRYOTHERAPY OR HEAT UP TO 20 MIN AT A TIME FOR PAIN MANAGEMENT 4 TIMES PER DAY TO RIGHT KNEE [code = PT / NURSE EXAMINER MAY EDUCATE ON PAIN MANAGEMENT CLINICALLY INDICATED, INCLUDING NON-PHARMACOLOGICAL PAIN REDUCTION TECHNIQUES AND USE OF CRYOTHERAPY OR HEAT UP TO 20 MIN AT A TIME FOR PAIN MANAGEMENT 4 TIMES PER DAY TO RIGHT KNEE] Future Scheduled Test AGENCY MAY PERFORM A RESUMPTION OF CARE VISIT FOLLOWING ANY HOSPITAL ADMISSION. PT TO EVALUATE, OBSERVE / ASSESS, AND MONITOR, NURSE EXAMINER TO OBSERVE AND MONITOR, PROVIDE SKILLED THERAPEUTIC INTERVENTION, ACTIVITY, EDUCATION, AND TRAINING TO ADDRESS; [code = AGENCY MAY PERFORM A RESUMPTION OF CARE VISIT FOLLOWING ANY HOSPITAL ADMISSION. PT TO EVALUATE, OBSERVE / ASSESS, AND MONITOR, NURSE EXAMINER TO OBSERVE AND MONITOR, PROVIDE SKILLED THERAPEUTIC INTERVENTION, ACTIVITY, EDUCATION, AND TRAINING TO ADDRESS;] Future Scheduled Test NEUROMUSCU LAR RE-EDUCATION / BALANCE / POSTURAL CONTROL (PT) [code = NEUROMUSCULAR RE-EDUCATION / BALANCE / POSTURAL CONTROL (PT)] Future Scheduled Test PT/NURSE EXAMINER TO TEACH KNEE REPLACEMENT SELF-MANAGEMENT [code = PT/NURSE EXAMINER TO TEACH KNEE REPLACEMENT SELF-MANAGEMENT] Future Scheduled Test PT / NURSE EXAMINER T O OBSERVE WOUND/INCISION AND/OR INTACT DRESSING ON RIGHT KNEE AND REPORT EARLY SIGNS AND SYMPTOMS OF WOUND DETERIORATION, COMPLICATIONS, OR INFECTION TO PHYSICIAN AND/OR THE RN CLINICAL DIRECTOR OF NEUROLOGY FOR PHYSICIAN NOTIFICATION. NON REMOVABLE AQUACEL DSG TO BE REMOVED BY SURGEON IN 2 WEEKS AT F/U VISIT [code = PT / NURSE EXAMINER TO OBSERVE WOUND/INCISION AND/OR INTACT DRESSING ON RIGHT KNEE AND REPORT EARLY SIGNS AND SYMPTOMS OF WOUND DETERIORATION, COMPLICATIONS, OR INFECTION TO PHYSICIAN AND/OR THE RN CLINICAL DIRECTOR OF NEUROLOGY FOR PHYSICIAN NOTIFICATION. NON REMOVABLE AQUACEL DSG [...] End Date/Time Encounter Type Admission Type Attending [facility] Care Department Encounter ID Discharge Date Discharge Status Discharge Condition Discharge Reason Percent Goals Met 2024-07-01 00:00:00 2024-08-29 00:00:00 Outpatient NEW ADMISSION NELL MCKENNA [facility] [id number] 8.33
--- OUTSIDE RECORDS SUMMARY | 2024-08-05 14:57 | XMS_ITS | Clinical Summary ---
Author Organization [facility] Address [address] [address] Phone Care Team Providers Care Senior Director Of Strategy Name Role Phone Aram Modi MD Primary Care Provider [phone] Allergies Active Allergy Reactions Criticality Noted Date [...] 04/09/2023 Overview (04/09/2023): Done on 02/03/2023 at [facility] indications:CHF Multiple premature ventricular complexes [...] sleep apnea 03/29/2014 04/09/20 23 Overview (04/09/2023): [facility] Home Polysomnogram: Date 02/13/2017; AHI [...] Venous insufficiency of leg 04/08/2023 04/08/2023 04/08/2023 Immunizations Name Administration Dates Next Due Influenza [...] [facility] [address] [phone] Abhishek Haynes MD [address] [phone] Health Maintenance Due Date Last Done Comments Influenza Vaccine (#1) 2024 2, 03/06/2021, 02/14/2020, Additional history exists Pneumococcal Vaccine: 65+ Years Completed 11/02/2014, 06/07/2014, 09/16/2013, Additional history exists Hepatitis B Vaccine Aged Out No longe r eligible based on patient's age to complete this topic Insurance MEDICARE [facility] MEDICARE [facility] Care Teams Senior Director Of Strategy Relationship Specialty Start Date End Date Aram Modi MD [address] [address] PCP - General Internal Medicine 04/09/23
--- OUTSIDE RECORDS SUMMARY | 2024-08-05 14:57 | XMS_ITS | Clinical Summary ---
Author Organization Unknown Care Team Providers Care Painter And Body Mechanic Apprentice Name Role Phone MICHAEL PIZANO, STACIE Unavailable Unavailable CLARISA COFOUNDER, NELL Unavailable Unavailable FLORY PT, NELIDA Unavailable Unavail able Payers Payer Name Policy Type Policy Number Effective Date Expira tion Date MEDICARE.[facility].PDGM [id number] Problems Condition Name Condition Details Condition Category [...] 05-19 00:00: 00 ATHSCL HEART DISEASE OF [place] CORONARY ARTERY W/O ANG PCTRS Active 05-19 00:00: 00 ATRIOVENTRIC ULAR BLOCK, SECOND DEGREE Active 05-19 00:00: 00 PRESENCE OF CARDIAC PACEMAKER Active 05-19 00:00: 00 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 05-19 00:00: 00 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 05-19 00:00: 00 PERSONAL HISTORY OF MALIGNANT NEOPLASM OF BRONCH[place] AND LUNG Active 05-19 00:00: 00 HALF-WAY (CURRENT) USE OF ASPIRIN Active 05-19 00:00: [...] capsule,del ayed release 06-02 00:00: 00 Yes [id number] REFLUX/GERD Per instruc tions DAILY Per instructio ns DAILY (route: oral) Med Classific ation: Gastroint estinal Therapy Agents tamsulosin 0.4 mg capsule 06-02 00:00: 00 Yes [id number] NA Per instruc tions DAILY Per instructio ns DAILY (route: oral) Alternate Route: BY MOUTH. Med Classific ation: Genitouri nary Therapy levothyroxi ne 88 mcg tablet 05-28 00:00: 00 Yes [id number] ENDOCRINE Per instruc tions DAILY Per instructio ns DAILY (route: oral) Med Classific ation: Endocrine finasteride 5 mg tablet 05-27 00:00: 00 Yes [id number] HAIR LOSS Per instruc tions DAILY Per instructio ns DAILY (route: oral) Med Classific ation: Genitouri nary Therapy eplerenone 50 mg tablet 2023-05 2-31 00:00: 00 Yes [id number] HIGH BLOOD PRESSURE Per instruc tions DAILY Per instructio ns DAILY (route: oral) Med Classific ation: Cardiovas cular Therapy Agents hydrochloro thiazide 25 mg tablet 2023-05 2-19 00:00: 00 Yes [id number] HTN Per instruc tions ONCE DAILY Per instructio ns ONCE DAILY (route: oral) Med Classific ation: Cardiovas cular Therapy Agents celecoxib 200 mg capsule 2-11 00:00: 00 Yes [id number] NSAID Per instruc tions 2 TIMES DAILY Per instructio ns 2 TIMES DAILY (route: oral) Med Classific ation: Analgesic , Anti-infl ammatory or Antipyret ic oxycodone 10 mg tablet 2-11 00:00: 00 Yes [id number] PAIN 1 tablet EVERY 4 HOURS 1 tablet EVERY 4 HOURS (route: oral) Med Classific ation: Analgesic , Anti-infl ammatory or Antipyret ic carvedilol 6.25 mg tablet 2-10 00:00: 00 Yes [id number] BETA MICHAEL Per instruc tions TWICE DAILY Per instructio ns TWICE DAILY (route: oral) Med Classific ation: Cardiovas cular Therapy Agents atorvastati n 40 mg tablet 2-07 00:00: 00 Yes [id number] HTN Per instruc tions AT BEDTIME Per instructio ns AT BEDTIME (route: oral) Med Classific ation: Cardiovas cular Therapy Agents omeprazole 20 mg capsule,del ayed release 1-27 00:00: 00 Yes [id number] GERD Per instruc tions TWICE DAILY Per instructio ns TWICE DAILY (route: oral) Med Classific ation: Gastroint estinal Therapy Agents tamsulosin 0.4 mg capsule 1-15 00:00: 00 Yes [id number] NA Per instruc tions DAILY Per instructio ns DAILY (route: oral) Med Classific ation: Genitouri nary Therapy acetaminoph en ER 650 mg tablet,exte nded release 2-13 00:00: 00 Yes [id number] PAIN 1 tablet EVERY 6 HOURS 1 tablet EVERY 6 HOURS (route: oral) Med Classific ation: Analgesic , Anti-infl ammatory or Antipyret ic aspirin 325 mg tablet,vasquez yed release 06-28 00:00: 00 07-27 23:59 :00 No [id number] BLOOD THINNER 1 tablet 2 TIMES DAILY 1 tablet 2 TIMES DAILY (route: oral) Med Classific ation: Analgesic , Anti-infl ammatory or Antipyret ic cholecalcif lonny (vitamin D3) 50 mcg (2,000 unit) capsule 06-28 00:00: 00 Yes [id number] CALCIUM ABSORPTION 1 capsule DAILY 1 capsule DAILY (route: oral) Med Classific ation: Electroly te Balance-N utritiona l Products docusate sodium 100 mg capsule 06-28 00:00: 00 Yes [id number] STOOL SOFTENER 1 capsule 2 TIMES DAILY 1 capsule 2 TIMES DAILY (route: oral) Med Classific ation: Gastroint estinal Therapy Agents prednisone 1 mg tablet 06-28 00:00: 00 Yes [id number] NA 1 tablet EVERY OTHER DAY 1 [...] Comments Future Scheduled Test BED MOBILI TY (PT/COFOUNDER) [code = BED MOBILITY (PT/COFOUNDER)] Future Scheduled Test PT/COFOUNDER TO PROVIDE GAIT TRAINING FOR IMPROVED MOBILITY AND /OR TO NORMALIZE GAIT PATTERN [code = PT/COFOUNDER TO PROVIDE GAIT TRAINING FOR IMPROVED MOBILITY AND /OR TO NORMALIZE GAIT PATTERN] Future Scheduled Test THERAPEUTI C EXERCISES AND ESTABLISHING A HOME EXERCISE PROGRAM (PT/COFOUNDER) [code = THERAPEUTIC EXERCISES AND ESTABLISHING A HOME EXERCISE PROGRAM (PT/COFOUNDER)] Future Scheduled Test PT/COFOUNDER TO PROVIDE STAIR TRAINING [code = PT/COFOUNDER TO PROVIDE STAIR TRAINING] Future Scheduled Test PT / COFOUNDER T O MONITOR AND EDUCATE ON OXYGEN SATURATION DURING ADLS/IADLS, NOTIFY PHYSICIAN AND/OR THE RN CLINICAL CREELER FOR PHYSICIAN NOTIFICATION AND IF O2 SATS BELOW PHYSICIAN ORDERED PARAMETERS AFTER 10 MIN OF REST [code = PT / COFOUNDER TO MONITOR AND EDUCATE ON OXYGEN SATURATION DURING ADLS/IADLS, NOTIFY PHYSICIAN AND/OR THE RN CLINICAL CREELER FOR PHYSICIAN NOTIFICATION AND IF O2 SATS BELOW PHYSICIAN ORDERED PARAMETERS AFTER 10 MIN OF REST] Future Scheduled Test PT / COFOUNDER M AY EDUCATE ON PAIN MANAGEMENT CLINICALLY INDICATED, INCLUDING NON-PHARMACOLOGICAL PAIN REDUCTION TECHNIQUES AND USE OF CRYOTHERAPY OR HEAT UP TO 20 MIN AT A TIME FOR PAIN MANAGEMENT 4 TIMES PER DAY TO RIGHT KNEE [code = PT / COFOUNDER MAY EDUCATE ON PAIN MANAGEMENT CLINICALLY INDICATED, INCLUDING NON-PHARMACOLOGICAL PAIN REDUCTION TECHNIQUES AND USE OF CRYOTHERAPY OR HEAT UP TO 20 MIN AT A TIME FOR PAIN MANAGEMENT 4 TIMES PER DAY TO RIGHT KNEE] Future Scheduled Test AGENCY MAY PERFORM A RESUMPTION OF CARE VISIT FOLLOWING ANY HOSPITAL ADMISSION. PT TO EVALUATE, OBSERVE / ASSESS, AND MONITOR, COFOUNDER TO OBSERVE AND MONITOR, PROVIDE SKILLED THERAPEUTIC INTERVENTION, ACTIVITY, EDUCATION, AND TRAINING TO ADDRESS; [code = AGENCY MAY PERFORM A RESUMPTION OF CARE VISIT FOLLOWING ANY HOSPITAL ADMISSION. PT TO EVALUATE, OBSERVE / ASSESS, AND MONITOR, COFOUNDER TO OBSERVE AND MONITOR, PROVIDE SKILLED THERAPEUTIC INTERVENTION, ACTIVITY, EDUCATION, AND TRAINING TO ADDRESS;] Future Scheduled Test NEUROMUSCU LAR RE-EDUCATION / BALANCE / POSTURAL CONTROL (PT) [code = NEUROMUSCULAR RE-EDUCATION / BALANCE / POSTURAL CONTROL (PT)] Future Scheduled Test PT/COFOUNDER TO TEACH KNEE REPLACEMENT SELF-MANAGEMENT [code = PT/COFOUNDER TO TEACH KNEE REPLACEMENT SELF-MANAGEMENT] Future Scheduled Test PT / COFOUNDER T O OBSERVE WOUND/INCISION AND/OR INTACT DRESSING ON RIGHT KNEE AND REPORT EARLY SIGNS AND SYMPTOMS OF WOUND DETERIORATION, COMPLICATIONS, OR INFECTION TO PHYSICIAN AND/OR THE RN CLINICAL CREELER FOR PHYSICIAN NOTIFICATION. NON REMOVABLE AQUACEL DSG TO BE REMOVED BY SURGEON IN 2 WEEKS AT F/U VISIT [code = PT / COFOUNDER TO OBSERVE WOUND/INCISION AND/OR INTACT DRESSING ON RIGHT KNEE AND REPORT EARLY SIGNS AND SYMPTOMS OF WOUND DETERIORATION, COMPLICATIONS, OR INFECTION TO PHYSICIAN AND/OR THE RN CLINICAL CREELER FOR PHYSICIAN NOTIFICATION. NON REMOVABLE AQUACEL DSG [...] End Date/Time Encounter Type Admission Type Attending [facility] Care Department Encounter ID Discharge Date Discharge Status Discharge Condition Discharge Reason Percent Goals Met 2024-07-01 00:00:00 2024-08-29 00:00:00 Outpatient NEW ADMISSION NELL MCKENNA [facility] [id number] 8.33
== END 2024-08-05 13:07 | disposition home or self-care (01) ==
LOC: HO.HOS 12:35
PROVIDERS: PCP Internal Medicine Sports Medicine; Visit Provider Orthopaedic Surgery
DX: M25.561 Pain in right knee (principal)
CPT/HCPCS: 99024

== ENCOUNTER → 2024-08-05 12:34 | Outpatient (BNVA) | payer MEDICARE, SELFPAY | PROVIDERS: PCP Internal Medicine Sports Medicine; Visit Provider Orthopaedic Surgery | DX: M25.561 Pain in right knee (principal); Z47.1 Aftercare following joint replacement surgery; Z96.651 Presence of right artificial knee joint | CPT/HCPCS: 99212 ==

== ENCOUNTER 2024-11-11 08:07 | Outpatient (AMB) | payer MEDICARE, SELFPAY ==
[2024-11-11 08:13] VITALS: BMI 29.2
--- NOTE | 2024-11-11 08:13 | A.OFFVIS_ITS ---
Vital Signs 11/11/24 08:13 Height 5 ft 6 in Weight 181 lb BMI 29.2 Intake Visit Reasons: OV: R TKA w/DR 06/28/24 Intake Note: Cy is a 84 year old male who presents for follow up after undergoing right total knee replacement surgery on 06/28/2024. He reports mild intermittent discomfort in his right knee. He continues with his stretching exercises. He states that he does feel weak when going up and down hills. He states that at times he feels like ?an old man?. Allergies lactose (LACTOSE) Allergy (Severe, Verified 11/11/24 08:13) Diarrhea morphine (MORPHINE) Allergy (Intermediate, Verified 11/11/24 08:13) INVOLUNTARY SPASMS atenolol Adverse Reaction (Intermediate, Verified 11/11/24 08:13) Nausea Medication List - Last Reconciled 11/11/24 by Gordo Deng MD acetaminophen 650 mg (2 x 325 mg) PO Q6H PRN 30 days allopurinol 150 mg PO DAILY amoxicillin 2,000 mg (4 x 500 mg) PO ONCE 1 day aspirin 325 mg PO BID 42 days atorvastatin 40 mg PO QPM carvedilol 6.25 mg PO BID celecoxib 200 mg PO BID cholecalciferol (vitamin D3) (Vitamin D3) 50 mcg PO DAILY docusate sodium 100 mg PO BID 30 days eplerenone 50 mg PO DAILY finasteride 5 mg PO DAILY hydrochlorothiazide 12.5 mg PO DAILY levothyroxine 88 mcg PO QAM omeprazole 20 mg PO DAILY oxycodone 10 mg PO Q4H PRN 7 days prednisone 1 mg PO Q OTHER DAY sacubitril-valsartan 49-51 mg (Entresto) 1 tab PO BID tamsulosin 0.4 mg PO BEDTIME walker Folding front wheeled walker [facility] Medical History Arthritis Back pain Anemia Hiatal hernia Murmur Scarlet fever Hyperlipidemia Chronic rhinitis Elevated PSA Thyroid disease HTN (hypertension) Gout CKD (chronic kidney disease) stage 3, GFR 30-59 ml/min Sleep apnea Internal hemorrhoids Polymyalgia rheumatica Chronic pruritus Lung cancer Functional diarrhea Osteoarthritis BPH (benign prostatic hyperplasia) Serrated polyp of colon Cystic mass of pancreas IBS (irritable bowel syndrome) Venous insufficiency of both lower extremities PVC (premature ventricular contraction) Cardiomyopathy Chest pain Coronary artery disease involving [place] coronary artery Second degree heart block Cardiac resynchronization therapy pacemaker (HYDRAULIC ASSEMBLER-P) in place Surgical History H/O hemorrhoidectomy Hx of lumbosacral spine surgery Hx of bilateral cataract extraction Hx of removal of cyst Hx of inguinal hernia repair Hx of cholecystectomy H/O colonoscopy History of esophagogastroduodenoscopy (EGD) History of lobectomy of lung History of permanent cardiac pacemaker placement Hx of arthroscopy of left knee Hx of cardiac catheterization Social History Are you a primary child care supervisor to a significant other at home: No Do you presently have visiting nurse or other home services: No Patient Tobacco Use Status: Former Tobacco user service: No Physical Exam Vital Signs: BMI result Body Mass Index 29.2 Const Other: Well-nourished well-developed very friendly male awake alert and oriented x3 in no acute distress Extrem Other: Right knee examination shows that the surgical incision is well healed, no erythema, full active extension and flexion to 100 15 degrees, his patella tracks well Assessment & Plan Assessment & Plan (1) Right knee pain: Code(s): M25.561 - Pain in right knee Category: Medical Plan Mr. Velez continues to do well after undergoing right total knee replacement surgery on 06/28/2024. He will continue with his home exercise program. I discussed with the patient the fact that his discomfort should continue to improve over the next few months. He will contact me prior to his follow-up appointment in 3 months should any questions or concerns arise. Feel free to call me at any time should questions regarding his orthopedic management arise. I spent 22 minutes in reviewing the patient's records and imaging studies, seeing the patient and documenting in the medical record. Coding Level of Care Code Est Pt Level 3 (40099) Complex EM visit Add On G2211 Diagnoses Right knee pain M25.561
== END 2024-11-11 08:48 | disposition home or self-care (01) ==
LOC: HO.HOS 08:07
PROVIDERS: PCP Internal Medicine Sports Medicine; Visit Provider Orthopaedic Surgery
DX: M25.561 Pain in right knee (principal); Z96.651 Presence of right artificial knee joint
CPT/HCPCS: 99213; G2211

== ENCOUNTER → 2024-11-11 08:07 | Outpatient (BNVA) | payer MEDICARE, SELFPAY | PROVIDERS: PCP Internal Medicine Sports Medicine; Visit Provider Orthopaedic Surgery | DX: M25.561 Pain in right knee (principal) | CPT/HCPCS: 99212 ==

== ENCOUNTER 2025-02-15 07:43 | Outpatient (AMB) | payer MEDICARE, SELFPAY ==
--- NOTE | 2025-02-15 08:05 | A.OFFVIS_ITS ---
Vital Signs 02/15/25 08:10 Height 5 ft 6 in Weight 175 lb BMI 28.2 Intake Visit Reasons: OV: R TKA w/ 06/28/24 Intake Note: Cy is a 84 year old male who presents today as a follow up for his right TKA w/DR 06/28/24. At today's visit he states that the right knee is doing fine, no pain to report at this time. Patient added that he noticed a dullache behind the knee and that he is still having trouble with kneeling. He continues with his home stretching program. He denies any fevers or chills. Allergies lactose (LACTOSE) Allergy (Severe, Verified 02/15/25 08:10) Diarrhea morphine (MORPHINE) Allergy (Intermediate, Verified 02/15/25 08:10) INVOLUNTARY SPASMS atenolol Adverse Reaction (Intermediate, Verified 02/15/25 08:10) Nausea Medication List - Last Reconciled 02/15/25 by Gordo Deng MD acetaminophen 650 mg (2 x 325 mg) PO Q6H PRN 30 days allopurinol 150 mg PO DAILY amoxicillin 2,000 mg (4 x 500 mg) PO ONCE 1 day aspirin 325 mg PO BID 42 days atorvastatin 40 mg PO QPM carvedilol 6.25 mg PO BID cholecalciferol (vitamin D3) (Vitamin D3) 50 mcg PO DAILY docusate sodium 100 mg PO BID 30 days eplerenone 50 mg PO DAILY finasteride 5 mg PO DAILY hydrochlorothiazide 12.5 mg PO DAILY levothyroxine 88 mcg PO QAM omeprazole 20 mg PO DAILY prednisone 1 mg PO Q OTHER DAY sacubitril-valsartan 49-51 mg (Entresto) 1 tab PO BID tamsulosin 0.4 mg PO BEDTIME walker Folding front wheeled walker [facility] Medical History Arthritis Back pain Anemia Hiatal hernia Murmur Scarlet fever Hyperlipidemia Chronic rhinitis Elevated PSA Thyroid disease HTN (hypertension) Gout CKD (chronic kidney disease) stage 3, GFR 30-59 ml/min Sleep apnea Internal hemorrhoids Polymyalgia rheumatica Chronic pruritus Lung cancer Functional diarrhea Osteoarthritis BPH (benign prostatic hyperplasia) Serrated polyp of colon Cystic mass of pancreas IBS (irritable bowel syndrome) Venous insufficiency of both lower extremities PVC (premature ventricular contraction) Cardiomyopathy Chest pain Coronary artery disease involving [place] coronary artery Second degree heart block Cardiac resynchronization therapy pacemaker (MEDICAL SALES CONSULTANT-P) in place Surgical History H/O hemorrhoidectomy Hx of lumbosacral spine surgery Hx of bilateral cataract extraction Hx of removal of cyst Hx of inguinal hernia repair Hx of cholecystectomy H/O colonoscopy History of esophagogastroduodenoscopy (EGD) History of lobectomy of lung History of permanent cardiac pacemaker placement Hx of arthroscopy of left knee Hx of cardiac catheterization Social History Are you a primary animal care worker to a significant other at home: No Do you presently have visiting nurse or other home services: No Patient Tobacco Use Status: Former Tobacco user service: No Physical Exam Vital Signs: BMI result Body Mass Index 28.2 Const Other: Well-nourished well-developed very friendly male awake alert and oriented x3 in no acute distress Extrem Other: Right knee examination shows that the surgical incision is well healed, no erythema, full active extension and flexion to 120 degrees, his patella tracks well Results Reviewed Results Reviewed: X-rays of the patient's right knee taken today show a total knee arthroplasty in good position with no signs of loosening, no acute bony abnormalities Assessment & Plan Assessment & Plan (1) Right knee pain: Code(s): M25.561 - Pain in right knee Category: Medical Plan Mr. Velez continues to do well after undergoing right total knee replacement surgery on 06/28/2024. He will continue with his home exercise program. He does know to take antibiotics before any dental work. He will contact me prior to his annual follow-up appointment should any questions or concerns arise. Feel free to call me at any time should questions regarding his orthopedic management arise. I spent 21 minutes in reviewing the patient's records and imaging studies, seeing the patient and documenting in the medical record. Orders: Orders XR knee RT 3V Today M25.561 - Pain in right knee Coding Level of Care Code Est Pt Level 3 (56414) Complex EM visit Add On G2211 Diagnoses Right knee pain M25.561
[2025-02-15 08:10] VITALS: BMI 28.2
== END 2025-02-15 08:33 | disposition home or self-care (01) ==
LOC: HO.HOS 07:44
PROVIDERS: PCP Internal Medicine Sports Medicine; Visit Provider Orthopaedic Surgery
DX: M25.561 Pain in right knee (principal); Z96.651 Presence of right artificial knee joint
CPT/HCPCS: 99213; G2211

== ENCOUNTER → 2025-02-15 07:46 | Outpatient (BNV) | payer MEDICARE, SELFPAY | PROVIDERS: Visit Provider Radiology Diagnostic Radiology | DX: Z96.651 Presence of right artificial knee joint (principal) | CPT/HCPCS: 73562 ==

== ENCOUNTER 2025-02-15 08:37 | Outpatient (REF) | payer MEDICARE, SELFPAY ==
--- OUTSIDE RECORDS SUMMARY | 2025-02-14 19:35 | XMS_ITS | Encounter Summary ---
Author Organization [facility] [place] [address] Care Team Providers Care Piece Dyer Name Role Phone Aram Modi MD Primary Care Provider [phone] Encounter Details Date Type Department Care Team (Late st Contact Info) Description 02/14/2025 7:35 PM EDT Ancillary Procedure [facility] [address] [facility] [address] [place] [address] Arrived Social History Tobacco Use Types Packs/Day Years [...] Care Team (Late st Contact Info) Description 04/20/2025 8:00 AM EST Ancillary Procedure [facility] [address] [facility] [address] [place] [address] documented as of this encounter Procedures Procedure Name Priority Date/Time Associated Diagnosis Comments CARDIAC DEVICE CHECK- REMOTE- MURJ Routine 02/14/2025 7:33 PM EDT documented in this encounter Results * Cardiac device check - Remote- MURJ (02/14/2025 7:33 PM EDT) Date Time Interrogation Session [id number] CV DEVICE CHECK Type Interrogation Session Remote Scheduled CV DEVICE CHECK Implantable Pulse Generator Performance Improvement Director BSX CV DEVICE CHECK Implantable Pulse Generator Type VALVER-P CV DEVICE CHECK Implantable Pulse Generator Model U128 CV DEVICE CHECK Implantable Pulse Generator Serial Number [id number] CV DEVICE CHECK Implantable Pulse Generator Implant Date 20230305 CV DEVICE CHECK Battery Remaining Percentage 100.00 CV DEVICE CHECK Battery Remaining Longevity 108.0 CV DEVICE CHECK Battery Status Beginning of Service CV DEVICE CHECK Ayan Statistic RA Percent Paced 35.00 CV DEVICE CHECK Ayan Statistic RV Percent Paced 100.00 CV DEVICE CHECK VALVER Statistic LV Percent Paced 100.00 CV DEVICE CHECK Atrial Tachy Statistic AT/AF [place] Percent 0.00 CV DEVICE CHECK Lead Channel Sensing Intrinsic Amplitude 2.400 CV DEVICE CHECK Lead Channel Setting Sensing Sensitivity 0.75 CV DEVICE CHECK Lead Channel Impedance Value 632 CV DEVICE CHECK Lead Channel Pacing Threshold Amplitude 0.600 CV DEVICE CHECK Lead Channel Pacing Threshold Pulse Width 0.4 CV DEVICE CHECK Lead Channel RA Pacing Threshold Date 2025-02-07 CV DEVICE CHECK Lead Channel Setting Pacing Amplitude 2.000 CV DEVICE CHECK Lead Channel Setting Pacing Pulse Width 0.4 CV DEVICE CHECK Lead Channel Setting Sensing Sensitivity 2.50 CV DEVICE CHECK Lead Channel Impedance Value 594 CV DEVICE CHECK Lead Channel Pacing Threshold Amplitude 1.000 CV DEVICE CHECK Lead Channel Pacing Threshold Pulse Width 0.4 CV DEVICE CHECK Lead Channel RV Pacing Threshold Date 2025-02-07 CV DEVICE CHECK Lead Channel Setting Pacing Amplitude 2.000 CV DEVICE CHECK Lead Channel Setting Pacing Pulse Width 0.4 CV DEVICE CHECK Lead Channel Impedance Value 816 CV DEVICE CHECK Lead Channel Setting Pacing Amplitude 2.500 CV DEVICE CHECK Lead Channel Setting Pacing Pulse Width 1.0 CV DEVICE CHECK Ayan Setting Mode (NBG Code) DDD CV DEVICE CHECK Ventricular chambers paced during VALVER pacing. BiV CV DEVICE CHECK Ayan Setting Lower Rate Limit 60 CV DEVICE CHECK Aayn Setting AT Mode Switch Rate 170 CV DEVICE CHECK Ayan Setting Maximum Tracking Rate 130 CV DEVICE CHECK Ayan Setting Maximum Sensor Rate 130 CV DEVICE CHECK Ayan Setting PAV Delay 150 CV DEVICE CHECK Ayan Setting SUZY Delay 100 CV DEVICE CHECK VALVER LV-RV Delay 0 CV D EVICE CHECK Zone Setting Type Category VT CV DEVICE CHECK Rate 160 CV DEVICE CHECK Zone Setting Status Monitor CV DEVICE CHECK Zone ID 1 CV DEVICE CHECK Date of Service 2025-02-22 CV DEVICE CHECK Anatomical Region Laterality Modality Device Interroga tion 02/09/2025 2:51 AM EDT Impressions 02/14/2025 7:19 PM EDT Normal Remote: No Events * Normal Device Function * Alerts or events: None * Battery: Battery is at 100%, 9.00 yrs * Sensing, impedance and thresholds reviewed * Programmed parameters reviewed * Presenting rhythm reviewed * Heart Rate Histograms reviewed * No significant changes noted Narrative Procedure Note Angelica Price MD - 02/14/2025 IMPRESSION: Normal Remote: No Events * Normal Device Function * Alerts or events: None * Battery: Battery is at 100%, 9.00 yrs * Sensing, impedance and thresholds reviewed * Programmed parameters reviewed * Presenting rhythm reviewed * Heart Rate Histograms reviewed * No significant changes noted Angelica Price MD CV IMPLANTABLE CARDIAC DEV ICE PROCEDURES Final Result documented in this encounter Visit Diagnoses Not on filedocumented in this encounter Care Teams Piece Dyer Relationship Specialty Start Date End Date Aram Modi MD [address] [place] [id number] PCP - General 04/22/17 documented as of this encounter
--- NOTE | ~2025-02-15 | XR_ITS ---
EXAMINATION: XR KNEE 3 VIEWS RIGHT HISTORY: M25.561 - Pain in right knee COMPARISON: Comparison is made with the prior examination dated 07/15/2024. FINDINGS: Three views of the right knee are submitted. The patient is again noted to be status post right total knee arthroplasty. The orthopedic elements are in anatomic alignment. There is no radiographic evidence of loosening. There is no fracture or dislocation. There is no joint effusion. The soft tissues are unremarkable. There is no joint effusion. XR/XR knee RT 3V IMPRESSION: Status post right total knee arthroplasty. Electronically signed by: Karl Kim MD 02/15/2025 07:56 AM EDT
--- OUTSIDE RECORDS SUMMARY | 2025-02-16 09:05 | XMS_ITS | Encounter Summary ---
Author Organization [facility] Address [address] [place] [address] Care Team Providers Care Sports Management Professor Name Role Phone Gael Coffman MD Primary Care Provider Unavail able Aram Modi MD Primary Care Provider Yanet Gilmore Pcp Primary Care Provider UnavailRavinder Wallace MD Unavailable [phone] Fabien Burgos NP Unavailable [phone] Aram Modi MD Primary Care Provider Angelica Cardozo MD Unavailable [phone] Encounter Details Date Type Department Care Team Description 11/15/2016 [facility] Medical Records [address] [place] [address] Social History Tobacco Use Types Packs/Day Years [...] on filedocumented in this encounter Care Teams Sports Management Professor Relationship Specialty Start Date End Date Gael Coffman MD PCP - General 06/10/01 04/21/17 Aram Modi MD PCP - General Internal Medicine 04/22/17 09/10/20 [facility], Pcp PCP - General Internal Medicine 09/11/20 02/17/23 Aram Modi MD PCP - General Internal Medicine 02/18/23 Ravinder Jose MD Specialist Cardiology 02/11/23 Fabien Burgos NP Specialist Cardiology 02/11/23 Angelica Price MD [address] [place] [address] Specialist Cardiology 03/11/23 documented as of this encounter
--- OUTSIDE RECORDS SUMMARY | 2025-02-16 09:05 | XMS_ITS | Encounter Summary ---
Author Organization [facility] Address [address] [place] [address] Phone Care Team Providers Care Municipal Maintenance Worker Name Role Phone Aram Modi MD Primary Care Provider Aram Modi MD Unavailable Scott Souza MD Unavailable Alex Medina MD, MPH Unavailable [phone] Encounter Details Date Type Department Care Team (Late st Contact Info) Description 12/08/2023 Procedure Pass [facility], [facility] [place], [place] [address] [facility], Floor [address] [place] [address] Social History Tobacco Use Types Packs/Day Years Used Date Smoking Tobacco: Former Education Answer Date Recorded Are you interested in more education? Not on deepa e 09/15/2022 Are you concerned about learning? Not on file 09/15/2022 No 09/15/2022 No 09/15/2022 Digital Access Answer Date Recorded No 10/13/2022 No 10/13/2022 Reliable internet access at home? Not on file 10/13/2022 Device with a working camera? Not on file Intimate Partner Violence Answer Date R ecorded Are you denied basic needs s uch as food, clothing, or medical care? No 01/15/2023 In the past 12 months have y ou been in a relationship with a person who hurts, threatens, or tries to control you? No 01/15/2023 Are you denied basic needs s uch as food, clothing, or medical care? No 01/15/2023 In the past 12 months have y ou been in a relationship with a person who hurts, threatens, or tries to control you? No 01/15/2023 Sex and Gender Information Value Date Recorded Sex Assigned at Male 04/07/2020 10:14 AM EST Legal Sex Male 4:49 PM EST Gender Identity Male 04/07/2020 10:14 AM EST Sexual Orientation Straight 04/07/2020 10 :14 AM EST documented as of this encounter Plan of Treatment Upcoming Encounters Date Type Department Care Team (Latest Contact Info) Description 02/17/2025 8:00 AM EDT Pre-Admission Testing [address] [address] Aixa Luciano MD [address] [place] [address], [address] [address] [email or web address] 03/01/2025 Procedure Pass [address] [address] 03/01/2025 3:45 PM EDT Hospital Encounter [address] [address] Aixa Luciano MD [address] [place] [address], [address] [address] [email or web address] 03/01/2025 3:45 PM EDT - 03/01/2025 4:30 PM EDT Surgery [address] [address] Aixa Luciano MD [address] [place] [address], [address] [place] [address] [email or web address] ENDOSCOPIC ULTRASOUND /FNA - growing cyst in head 05/18/2025 11:00 AM EST Telemedicine [facility] Specialties [address] [facility] [place] [address] Alex Medina MD, MPH [address] [facility] [place] [address] [email or web address] Scheduled Procedures Name Priority Associated Diagnoses Date/Ti de ENDOSCOPIC ULTRASOUND Cyst of pancreas 03/01/2025 3:45 PM EDT documented as of this encounter Visit Diagnoses Not on filedocumented in this encounter Care Teams Municipal Maintenance Worker Relationship Specialty Start Date End Date Aram Modi MD [address] [place] [address] PCP - General 01/15/23 Aram Modi MD [facility] [address] Internal Medicine 01/15/23 Scott Souza MD [address] [place] [address] [email or web address] Medical Oncology 12/08/15 Alex Medina MD, MPH [address] [place] [address] [email or web address] Gastroenterology 11/23/20 documented as of this encounter Additional Source Comments The information contained in this document represents components of the legal health record. It is not the complete legal health record.[facility]
--- OUTSIDE RECORDS SUMMARY | 2025-02-16 09:05 | XMS_ITS | Encounter Summary ---
Author Organization [facility] Address [address] [place] [address] Care Team Providers Care Motorcycle Sales Associate Name Role Phone Gael Coffman MD Primary Care Provider Unavail able Aram Modi MD Primary Care Provider Yanet Gilmore Pcp Primary Care Provider UnavailRavinder Wallace MD Unavailable [phone] Fabien Burgos NP Unavailable [phone] Aram Modi MD Primary Care Provider Angelica Cardozo MD Unavailable [phone] Encounter Details Date Type Department Care Team Description 02/14/2014 Hospice Director Report Medical Records [address] [place] [address] Arturo Patel PA-C Social History Tobacco Use Types Packs/Day [...] on filedocumented in this encounter Care Teams Motorcycle Sales Associate Relationship Specialty Start Date End Date Gael Coffman MD PCP - General 06/10/01 04/21/17 Aram Modi MD PCP - General Internal Medicine 04/22/17 09/10/20 [facility], Pcp PCP - General Internal Medicine 09/11/20 02/17/23 Aram Modi MD PCP - General Internal Medicine 02/18/23 Ravinder Jose MD Specialist Cardiology 02/11/23 Fabien Burgos NP Specialist Cardiology 02/11/23 Angelica Price MD [address] [place] [address] Specialist Cardiology 03/11/23 documented as of this encounter
--- OUTSIDE RECORDS SUMMARY | 2025-02-16 09:05 | XMS_ITS | Encounter Summary ---
Author Organization [facility] Address [address] [place] [address] Care Team Providers Care [employer] Division Manager Name Role Phone Gael Coffman MD Primary Care Provider Unavail able Aram Modi MD Primary Care Provider Yanet Gilmore Pcp Primary Care Provider UnavailRavinder Wallace MD Unavailable [phone] Fabien Burgos NP Unavailable [phone] Aram Modi MD Primary Care Provider Angelica Cardozo MD Unavailable [phone] Encounter Details Date Type Department Care Team Description 07/07/2014 Pt. Non Urgent Medical Question Adult Medicine B - [place] [address] [place] [address] Gael Coffman MD Social History Tobacco Use [...] MD Sent: 07/07/2014 9:57 AM EST Subject: [facility] Dear Dr. Coffman Because I couldn't get an earlier appointment with Dr. Solomon Shipley, I went to Dr Ghazala Fisher at [facility]. I have a follow up visit in 2 months. I have faxed to your attention a list of notes per her thoughts. Basically, she agrees with your course of treatment and added a few. The Citracel addition was actually suggested by the Pain Dr. Hamilton who I found to be an excellent caring doctor. Dr. iFsher agreed. As instructed by you, I have an appointment with you in one month. Thank you for all that you do. Shan Rosie documented in this encounter Plan of Treatment Not on file documented as of this encounter Visit Diagnoses Not on filedocumented in this encounter Care Teams [employer] Division Manager Relationship Specialty Start Date End Date Gael Coffman MD PCP - General 06/10/01 04/21/17 Aram Modi MD PCP - General Internal Medicine 04/22/17 09/10/20 [facility], Pcp PCP - General Internal Medicine 09/11/20 02/17/23 Aram Modi MD PCP - General Internal Medicine 02/18/23 Ravinder Jose MD Specialist Cardiology 02/11/23 Fabien Burgos NP Specialist Cardiology 02/11/23 Angelica Price MD [address] [place] [address] Specialist Cardiology 03/11/23 documented as of this encounter
--- OUTSIDE RECORDS SUMMARY | 2025-02-16 09:05 | XMS_ITS | Encounter Summary ---
Author Organization [facility] Address [address] [place] [address] Care Team Providers Care Rn Operating Room Name Role Phone Gael Coffman MD Primary Care Provider Unavail able Aram Modi MD Primary Care Provider Yanet Gilmore Pcp Primary Care Provider UnavailRavinder Wallace MD Unavailable [phone] Fabien Burgos NP Unavailable [phone] Aram Modi MD Primary Care Provider Angelica Cardozo MD Unavailable [phone] Encounter Details Date Type Department Care Team Description 04/21/2014 Night Triage Doc Medical Records [address] [place] [address] Abstract, Provider Social History Tobacco Use Types [...] on filedocumented in this encounter Care Teams Rn Operating Room Relationship Specialty Start Date End Date Gael Coffman MD PCP - General 06/10/01 04/21/17 Aram Modi MD PCP - General Internal Medicine 04/22/17 09/10/20 [facility], Pcp PCP - General Internal Medicine 09/11/20 02/17/23 Aram Modi MD PCP - General Internal Medicine 02/18/23 Ravinder Jose MD Specialist Cardiology 02/11/23 Fabien Burgos NP Specialist Cardiology 02/11/23 Angelica Price MD [address] [place] [address] Specialist Cardiology 03/11/23 documented as of this encounter
--- OUTSIDE RECORDS SUMMARY | 2025-02-16 09:05 | XMS_ITS | Encounter Summary ---
Author Organization [facility] Address [address] [place] [address] Care Team Providers Care Visual Training Aide Name Role Phone Gael Coffman MD Primary Care Provider Unavail able Aram Modi MD Primary Care Provider Yanet Gilmore Pcp Primary Care Provider UnavailRavinder Wallace MD Unavailable [phone] Fabien Burgos NP Unavailable [phone] Aram Modi MD Primary Care Provider Angelica Cardozo MD Unavailable [phone] Reason for Visit * Reason Onset Date Comments Advice 07/14/2014 Encounter Details Date Type Department Care Team Description 07/14/2014 Pt. Non Urgent Medical Question Adult Medicine - [place] [address] [place] [address] Gael Coffman MD Social History Tobacco Use [...] on filedocumented in this encounter Care Teams Visual Training Aide Relationship Specialty Start Date End Date Gael Coffman MD PCP - General 06/10/01 04/21/17 Aram Modi MD PCP - General Internal Medicine 04/22/17 09/10/20 [facility], Pcp PCP - General Internal Medicine 09/11/20 02/17/23 Aram Modi MD PCP - General Internal Medicine 02/18/23 Ravinder Jose MD Specialist Cardiology 02/11/23 Fabien Burgos NP Specialist Cardiology 02/11/23 Angelica Price MD [address] [place] [address] Specialist Cardiology 03/11/23 documented as of this encounter
--- OUTSIDE RECORDS SUMMARY | 2025-02-16 09:05 | XMS_ITS | Encounter Summary ---
Author Organization [facility] Address [address] [place] [address] Care Team Providers Care Deep Tissue Massage Therapist Name Role Phone Aram Modi MD Primary Care Provider Yanet Gilmore Pcp Primary Care Provider [facility] Ravinder Salvador MD Unavailable [phone] Fabien Burgos NP Unavailable [phone] Aram Modi MD Primary Care Provider Unava Angelica Russell MD Unavailable Encounter Details Date Type Department Care Team Description 08/15/2020 Pt. Non Urgent Medic al Question Adult Medicine [address] [address] Aram Modi MD Social History Tobacco Use [...] , Seems to be an exodus from [place]. Unfortunately, the good people are leaving. I have come to count on you for my medical care, because of trust and confidence. So, how can I go about signing up with your new office and keeping you as my primary care physician. At 80 years of age I don't want to start over again. Please advise, Cy [email or web address] documented in this encounter Plan of Treatment Not on file documented as of this encounter Visit Diagnoses Not on filedocumented in this encounter Care Teams Deep Tissue Massage Therapist Relationship Specialty Start Date End Date Aram Modi MD PCP - General Internal Medicine 04/22/17 09/10/20 [facility] PCP - General Internal Medicine 09/11/20 02/17/23 Aram Modi MD PCP - General Internal Medicine 02/18/23 Ravinder Jose MD Specialist Cardiology 02/11/23 Fabien Burgos NP Specialist Cardiology 02/11/23 Angelica Price MD [address] [place] [address] Specialist Cardiology 03/11/23 documented as of this encounter
--- OUTSIDE RECORDS SUMMARY | 2025-02-16 09:05 | XMS_ITS | Encounter Summary ---
Author Organization [facility] Address [address] [place] [phone] Phone Care Team Providers Care Report Manager Name Role Phone Aram Modi MD Primary Care Provider Aram Modi MD Unavailable Scott Souza MD Unavailable Alex Medina MD, MPH Unavailable [phone] Encounter Details Date Type Department Care Team (Late st Contact Info) Description 12/08/2023 Procedure Pass [facility], [facility] [place], [place] [address] [facility], [address] [place] [address] Social History Tobacco Use Types Packs/Day Years [...] Description 02/17/2025 8:00 AM EDT Pre-Admission Testing [address] [address] Aixa Luciano MD [address] [place] [address], [address] [address] [email or web address] 03/01/2025 Procedure Pass [address] [address] 03/01/2025 3:45 PM EDT Hospital Encounter [address] [address] Aixa Luciano MD [address] [place] [address], [address] [address] [email or web address] 03/01/2025 3:45 PM EDT - 03/01/2025 4:30 PM EDT Surgery [address] [address] Aixa Luciano MD [address] [place] [address], [address] [place] [address] [email or web address] ENDOSCOPIC ULTRASOUND /FNA - growing cyst in head 05/18/2025 11:00 AM EST Telemedicine [facility] Specialties [address] [facility] [place] [address] Alex Medina MD, MPH [address] [facility] [place] [address] [email or web address] Scheduled Procedures Name Priority Associated Diagnoses Date/Ti de ENDOSCOPIC ULTRASOUND Cyst of pancreas 03/01/2025 3:45 PM EDT documented as of this encounter Visit Diagnoses Not on filedocumented in this encounter Care Teams Report Manager Relationship Specialty Start Date End Date Aram Modi MD [address] [place] [id number] PCP - General 01/15/23 Aram Modi MD [facility] [address] Internal Medicine 01/15/23 Scott Souza MD [address] [place] [address] [email or web address] 12/08/15 Alex Medina MD, MPH [address] [place] [address] [email or web address] 11/23/20 documented as of this encounter Additional Source Comments The information contained in this document represents components of the legal health record. It is not the complete legal health record.[facility]
--- OUTSIDE RECORDS SUMMARY | 2025-02-16 09:05 | XMS_ITS | Encounter Summary ---
Author Organization [facility] Address [address] [place] [address] Care Team Providers Care Putter In Name Role Phone Gael Coffman MD Primary Care Provider Unavail able Aram Modi MD Primary Care Provider Yanet Gilmore Pcp Primary Care Provider UnavailRavinder Wallace MD Unavailable [phone] Fabien Burgos NP Unavailable [phone] Aram Modi MD Primary Care Provider Angelica Cardozo MD Unavailable [phone] Encounter Details Date Type Department Care Team Description 05/04/2014 [employer] Report Medical Records [address] [place] [id number] Ricky Douglas Social History Tobacco Use Types [...] on filedocumented in this encounter Care Teams Putter In Relationship Specialty Start Date End Date Gael Coffman MD PCP - General 06/10/01 04/21/17 Aram Modi MD PCP - General Internal Medicine 04/22/17 09/10/20 Community, Pcp PCP - General Internal Medicine 09/11/20 02/17/23 Aram Modi MD PCP - General Internal Medicine 02/18/23 Ravinder Jose MD Specialist Cardiology 02/11/23 Fabien Burgos NP Specialist Cardiology 02/11/23 Angelica Price MD [address] [place] [address] Specialist Cardiology 03/11/23 documented as of this encounter
--- OUTSIDE RECORDS SUMMARY | 2025-02-16 09:05 | XMS_ITS | Encounter Summary ---
Author Organization [facility] Address [address] [place] [address] Care Team Providers Care Pharmacy Messenger Name Role Phone Gael Coffman MD Primary Care Provider Unavail able Aram Modi MD Primary Care Provider Yanet lopez [facility] Pcp Primary Care Provider UnavailRavinder Wallace MD Unavailable [phone] Fabien Burgos NP Unavailable [phone] Aram Modi MD Primary Care Provider Angelica Cardozo MD Unavailable [phone] Encounter Details Date Type Department Care Team Description 02/19/2017 Orders Only Medical Records [address] [place] [address] Gael Coffman MD Social History Tobacco Use [...] on filedocumented in this encounter Care Teams Pharmacy Messenger Relationship Specialty Start Date End Date Gael Coffman MD PCP - General 06/10/01 04/21/17 Aram Modi MD PCP - General Internal Medicine 04/22/17 09/10/20 [facility] PCP - General Internal Medicine 09/11/20 02/17/23 Aram Modi MD PCP - General Internal Medicine 02/18/23 Ravinder Jose MD Specialist Cardiology 02/11/23 Fabien Burgos NP Specialist Cardiology 02/11/23 Angelica Price MD [address] [place] [address] Specialist Cardiology 03/11/23 documented as of this encounter
--- OUTSIDE RECORDS SUMMARY | 2025-02-16 09:05 | XMS_ITS | Clinical Summary ---
Author Organization [facility] Address [address] [place] [phone] Phone Care Team Providers Care Net Developer With Wcf Name Role Phone Aram Modi MD Primary Care Provider Aram Modi MD Unavailable Scott Souza MD Unavailable Alex Medina MD, MPH Unavailable Allergies Active Allergy Reactions Criticality Noted Date Comments Morphine 01/15/2023 Medications allopurinol (ZYLOPRIM) 100 MG tablet Take 100 mg by mouth daily. 04/29/2006 Active aspirin 81 MG EC tablet Take 81 mg by mouth daily. 04/29/2006 Active lisinopril (PRINIVIL,ZESTRI L) 20 MG tablet Take 20 mg by mouth daily. 05/04/2007 Active atorvastatin (LIPITOR) 10 MG tablet Take 10 mg by mouth daily. 05/04/2007 Active levothyroxine (SYNTHROID, LEVOTHROID) 50 MCG tablet Take 50 mcg by mouth daily. 05/04/2007 Active eplerenone (INSPRA) 50 MG tablet Take 50 mg by mouth daily. 05/04/2007 Active predniSONE (DELTASONE) 1 MG tablet Take 2 tablets (2 mg total) by mouth daily. 12/08/2020 Active carvedilol (COREG) 3.125 MG tablet 04/09/2023 Active dapagliflozin propanediol (FARXIGA) 5 mg tablet 03/28/2023 Active famotidine (PEPCID) 20 MG tablet Take 20 mg by mouth. 10/29/2022 Active finasteride (PROSCAR) 5 mg tablet Take 5 mg by mouth. 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 rheumatica syndrome 12/08/2015 History of lung cancer 12/08/2015 Chronic renal insufficiency, stage III (moderate ) 12/08/2015 Non-small cell lung cancer 10/07/2014 Hypertensive disorder 11/28/2011 Overview (10/07/2014): Hypertensive disorder Hypothyroidism 11/28/2011 Overview (10/07/2014): Hypothyroidism Encounters Date Type Department Care Team Description 02/10/2025 Orders Only [address] [address] Gracie Avalos PA-C Cyst of pancreas (Primary Dx) 02/09/2025 9:40 AM EDT Telemedicine [address] [address] Alex Medina MD, MPH Cyst of pancreas (Primary Dx) 12/06/2024 9:00 AM EDT Office Visit [facility] [place] [address] [place] [address], 9th [place] [address] Scott Souza MD Non-small cell lung cancer, unspecified laterality (Primary Dx) 12/06/2024 6:33 AM EDT - 12/06/2024 11:59 PM EDT Hospital Encounter [facility], [facility], [place] [address] [facility], Floor [address]1 [place] [address] Scott Souza MD Discharge Disposition: Home or Self Care 11/16/2024 Orders Only [facility] [address] [facility] [place] [address] ProviderFarideh MD 12/08/2023 Procedure Pass [facility], [facility], [place] [address] [facility], Floor [address] [place] [address] 12/08/2023 Procedure Pass [facility], [facility], [place] [address] [facility], Floor [address] [place] [address] from Last 3 Months Family History Medical History Relation Comments Heart disease Father Stroke Mother Relation Status Comments Father Mother Social History Tobacco Use Types Packs/Day Years [...] Orientation Straight 04/07/2020 10 :14 AM EST Last Filed Vital Signs Vital Sign Reading Time Taken Comments Blood Pressure 175/79 12/06/2024 8:52 AM EDT Pulse 63 12/06/2024 8:52 AM EDT Temperature 36.4 C (97.6 F) 12/06/2024 8:50 AM EDT Respiratory Rate 16 12/06/2024 8:50 AM EDT Oxygen Saturation 99% 12/06/2024 8:51 AM EDT Inhaled Oxygen Concentration - - Weight 82.9 kg (182 lb 12.2 oz) 12/06/2024 8:50 AM EDT Height 163.8 cm (5' 4.49 ) 12/06/2024 8:50 AM ED T Body Mass Index 30.9 12/06/2024 8:50 AM EDT Plan of Treatment Upcoming Encounters Date Type Department Care Team (Latest Contact Info) Description 02/17/2025 8:00 AM EDT Pre-Admission Testing [address] [address] Aixa Luciano MD [address] [place] [phone] [email or web address] 03/01/2025 Procedure Pass [address] [address] 03/01/2025 3:45 PM EDT Hospital Encounter [address] [address] Aixa Luciano MD [address] [place] [address] [email or web address] 03/01/2025 3:45 PM EDT - 03/01/2025 4:30 PM EDT Surgery [address] [address] Aixa Luciano MD [address] [place] [address] [email or web address] ENDOSCOPIC ULTRASOUND /FNA - growing cyst in head 05/18/2025 11:00 AM EST Telemedicine [facility] [address] [facility] [address] [place] [address] Alex Medina MD, MPH [address] [facility], [place] [address] [email or web address] Scheduled Procedures Name Priority Associated Diagnoses Date/Ti me ENDOSCOPIC ULTRASOUND Cyst of pancreas 03/01/2025 3:45 PM EDT Health Maintenance Due Date Last Done Comments TSH LEVEL 1940 ZOSTER VACCINES (1 of 2) 02/18/2014 12/24/2013 DEPRESSION SCREENING 04/17/2024 04/17/2023 INFLUENZA VACCINE (#1) 2024 , 07/21/2023, 04/15/2022, Additional history exists COVID-19 VACCINE ( season) 2025 04/15/2022, 04/23/2021, 07/23/2020, Additional history exists BLOOD PRESSURE 06/08/2025 12/06/2024 CREATININE LEVEL 12/06/2025 12/06/2024, , 04/18/2023, Additional history exists POTASSIUM LEVEL 12/06/2025 12/06/2024, 11/17, 04/18/2023, Additional history exists Adult Td,Tdap Booster 05/17/2026 05/17/2016, 009 PNEUMOCOCCAL VACCINES (50+ years) Completed 11/02/2014, 06/07/2014, 09/16/2013, Additional history exists RSV VACCINE Completed 02/19/2024 HEPATITIS A VACCINES Aged Out No long er eligible based on patient's age to complete this topic HIB VACCINES Aged Out No longer eligi ble based on patient's age to complete this topic MENINGOCOCCAL VACCINES (ACWY) Aged Out No longer eligible based on patient's age to complete this topic MENINGOCOCCAL VACCINES (B) Aged Out N o longer eligible based on patient's age to complete this topic Medical Devices Implanted Type Area Manager Quantitative Device Identifier Shelf Expiration Date Model / Serial / Lot Pacemaker-02/16 Implanted:02/16 (Quantity not on file) Pacemaker [employer] [id number] / [id number] / Penile Implant Description:PT HAS COLOPLAST A/S PENILE IMPLANT THAT IS SAFE UP TO 3T. VISUALLY SAW OP NOTE AND DEVICE MAKE AND MODEL. PT WILL BRING HARD COPY IN NEXT TIME HE IS SCANNED. [facility] 12/31/19 Procedures Procedure Name Priority Date/Time Associated Diagnosis Comments CT ABDOMEN/PELVIS WITH CONTRAST Routine 12/06/2024 7:42 AM EDT Non-small cell lung cancer, unspecified laterality CT CHEST WITH CONTRAST Routine 7:42 AM EDT Non-small cell lung cancer, unspecified laterality COMPREHENSIVE METABOLIC PANEL Routine 12/06/2024 6:47 AM EDT Non-small cell lung cancer, unspecified laterality HC BLOOD COUNT COMPLETE AUTO&AUTO DIFRNTL WBC Routine 12/06/2024 6:47 AM EDT Non-small cell lung cancer, unspecified laterality OUTSIDE PROCEDURE Routine 11/16/2024 3:[address] ABD/PELVIS REPORT ONLY Routine 11/16/2024 3:21 PM EDT from Last 3 Months Results * CT CHEST WITH CONTRAST (12/06/2024 7:42 AM EDT) Anatomical Region Laterality Modality Chest Computed Tomogra phy Other 12/06/2024 8:13 AM EDT Impressions 12/06/2024 8:43 AM EDT 1. No convincing evidence of lung cancer recurrence. 2. New/worsening of tubular and branching opacities and tree-in-bud nodules in the middle and the left lower lobes, likely representing mucous plugging and infectious bronchiolitis. Metastatic disease is less likely ATTESTATION: I, Trevin Reyes, as teaching physician have reviewed the images, if any, for this patient's exam, and if necessary, have edited the report originally created by Anabel Art. Narrative 12/06/2024 8:[address] CHEST WITH CONTRAST Referring clinician's provided indication for this examination in [facility]: * Non- small cell lung cancer, non-metastatic, assess treatment response TECHNIQUE: Multidetector CT of the chest was performed with intravenous contrast using tailored dose modulation techniques. COMPARISON: CT CHEST WITH CONTRAST FINDINGS: Devices/Tubes/Lines: Biventricular pacemaker with leads in the right atrial appendage, right ventricle and coronary sinus. Lungs: Postsurgical changes from left upper lobectomy. New tubular branching opacities with clustered tree-in-bud nodules in the left upper lobe (12:122 and 290) and in the right middle lobe (for example 12:222).Similar scattered nodules including 3 mm groundglass in the right upper lobe (12:109). Mosaic attenuation in both lungs. Central airways are patent. Pleura: No pleural effusion or pneumothorax. Mediastinum: Heart size is normal. No pericardial effusion. Small hiatal hernia. Mild amount of coronary calcifications. Lymph Nodes: No enlarged supraclavicular, axillary, mediastinal, or hilar lymph nodes. Upper Abdomen: Please see concurrent abdominal CT for abdominal findings. Chest Wall: No chest wall mass. Bones: Degenerative changes of the thoracic spine with diffuse intrahepatic skeletal hyperostosis. Similar healed left rib fractures. No suspicious lytic or blastic lesions. Procedure Note Trevin Reyes MD - 12/06/2024 CT CHEST WITH CONTRAST Referring clinician's provided indication for this examination in [facility]: *Non- small cell lung cancer, non-metastatic, assess treatment response TECHNIQUE: Multidetector CT of the chest was performed with intravenouscontrast using tailored dose modulation techniques. COMPARISON: CT CHEST WITH CONTRAST FINDINGS: Devices/Tubes/Lines: Biventricular pacemaker with leads in the rightatrial appendage, right ventricle and coronary sinus. Lungs: Postsurgical changes from left upper lobectomy. New tubularbranching opacities with clustered tree-in-bud nodules in the left upperlobe (12:122 and 290) and in the right middle lobe (for :222).Similar scattered nodules including 3 mm groundglass in the rightupper lobe (12:109). Mosaic attenuation in both lungs. Central airways arepatent. Pleura: No pleural effusion or pneumothorax. Mediastinum: Heart size is normal. No pericardial effusion. Small hiatalhernia. Mild amount of coronary calcifications. Lymph Nodes: No enlarged supraclavicular, axillary, mediastinal, or hilarlymph nodes. Upper Abdomen: Please see concurrent abdominal CT for abdominalfindings. Chest Wall: No chest wall mass. Bones: Degenerative changes of the thoracic spine with diffuseintrahepatic skeletal hyperostosis. Similar healed left rib fractures. Nosuspicious lytic or blastic lesions. IMPRESSION: 1. No convincing evidence of lung cancer recurrence. 2. New/worsening of tubular and branching opacities and ewzu-fn-zsjvafdboa in the middle and the left lower lobes, likely representing mucousplugging and infectious bronchiolitis. Metastatic disease is less likely ATTESTATION: I, Trevin Reyes, as teaching physician have reviewed theimages, if any, for this patient's exam, and if necessary, have edited thereport originally created by Anabel Art. us Scott Souza MD IMG CT CHEST Final Resu lt * CT ABDOMEN/PELVIS WITH CONTRAST (12/06/2024 7:42 AM EDT) Anatomical Region Laterality Modality Abdomen, Pelvis Computed Tomogra phy Other 12/06/2024 8:05 AM EDT Impressions 12/06/2024 8:51 AM EDT 1. No evidence of metastatic disease in the abdomen or pelvis. 2. 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 Narrative 12/06/2024 8:[address] ABDOMEN/PELVIS WITH CONTRAST Referring clinician's provided indication for this examination in [facility]: * Non- small cell lung cancer, staging Review of the Electronic Medical Record reveals an additional history of: Stage I lung adenocarcinoma in 2004, resected. TECHNIQUE: Multidetector-row CT of the abdomen and pelvis was performed after administration of intravenous contrast using tailored dose modulation techniques. Images were reconstructed in the axial, coronal, and sagittal planes. COMPARISON: 11/08/2023 FINDINGS: Lower Chest: CT chest from the same day is reported separately. Pacemaker is partially imaged. Liver: No focal lesions. Biliary: The patient is post cholecystectomy. Mild dilation of left intrahepatic ducts greater than right, and mild dilation of the common duct, measuring 1.1 cm at the emily hepatis and tapering distally, likely post cholecystectomy reservoir effect. Spleen: No splenomegaly or focal lesions. Accessory spleen redemonstrated. Pancreas: No ductal dilation. Multilocular/septated cystic lesion in the pancreatic uncinate process measures 3.1 x 2.2 cm (2:29), previously 2.9 x 2.2 cm. 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 In the coronal view, this measures up to 3.6 cm (4:44), previously 3.4 cm. Adrenal Glands: No new nodule. A 0.7 cm nodular focus at the left adrenal gland is unchanged from prior studies dating back to at least 2018, likely benign adenoma. Kidneys/Ureters: No solid masses, stones, or hydronephrosis. Small hypodensities of the kidneys bilaterally are likely cysts, though too small to characterize. Bowel: Small hiatal hernia. Otherwise, no distention or wall thickening. Colonic diverticulosis, without diverticulitis. Peritoneum/Retroperitoneum: No ascites. No peritoneal nodule. Lymph Nodes: No lymphadenopathy. Pelvic Organs/Bladder: Urinary bladder is moderately filled. Prostate measures 6 cm transversely. Seminal vesicles are unremarkable. Vessels: Abdominal aorta is normal in caliber, with moderate atherosclerotic calcification. Bones/Soft Tissues: No destructive osseous lesions. Multilevel degenerative changes of the spine, greatest at L2-3. Degenerative changes of the hips, right greater than left. Procedure Note Jessica Preston MD - 12/06/2024 CT ABDOMEN/PELVIS WITH CONTRAST Referring clinician's provided indication for this examination in [facility]: *Non- small cell lung cancer, staging Review of the Electronic Medical Record reveals an additional history of:Stage I lung adenocarcinoma in 2005, resected. TECHNIQUE: Multidetector-row CT of the abdomen and pelvis was performedafter administration of intravenous contrast using tailored dosemodulation techniques. Images were reconstructed in the axial, coronal,and sagittal planes. COMPARISON: 11/08/2023 FINDINGS: Lower Chest: CT chest from the same day is reported separately. Pacemakeris partially imaged. Liver: No focal lesions. Biliary: The patient is post cholecystectomy. Mild dilation of leftintrahepatic ducts greater than right, and mild dilation of the commonduct, measuring 1.1 cm at the emily hepatis and tapering distally, likelypost cholecystectomy reservoir effect. Spleen: No splenomegaly or focal lesions. Accessory spleenredemonstrated. Pancreas: No ductal dilation. Multilocular/septated cystic lesion in thepancreatic uncinate process measures 3.1 x 2.2 cm (2:29), previously 2.9 x2.2 cm. 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 In the coronal view, this measures up to 3.6 cm (4:44),previously 3.4 cm. Adrenal Glands: No new nodule. A 0.7 cm nodular focus at the left adrenalgland is unchanged from prior studies dating back to at least 2018, likelybenign adenoma. Kidneys/Ureters: No solid masses, stones, or hydronephrosis. Smallhypodensities of the kidneys bilaterally are likely cysts, though toosmall to characterize. Bowel: Small hiatal hernia. Otherwise, no distention or wall thickening.Colonic diverticulosis, without diverticulitis. Peritoneum/Retroperitoneum: No ascites. No peritoneal nodule. Lymph Nodes: No lymphadenopathy. Pelvic Organs/Bladder: Urinary bladder is moderately filled. Prostatemeasures 6 cm transversely. Seminal vesicles are unremarkable. Vessels: Abdominal aorta is normal in caliber, with moderateatherosclerotic calcification. Bones/Soft Tissues: No destructive osseous lesions. Multileveldegenerative changes of the spine, greatest at L2-3. Degenerative changesof the hips, right greater than left. IMPRESSION: 1. No evidence of metastatic disease in the abdomen or pelvis. 2. Slightly increased size of the multilocular, septated cystic in thepancreatic head/uncinate process, now up to 3.6 cm in diameter in thecoronal plane, previously 3.4cm, previously characterized as likely abranch duct IPMN. Scott Souza MD IMG CT ABD/PELVIS Final Re sult * (ABNORMAL) Comprehensive metabolic panel (12/06/2024 6:47 AM EDT) SODIUM 142 136 - 145 mmol/L [facility] LIC# [id number] POTASSIUM 3.9 3.4 - 5.1 mmol/L [facility] LIC# [id number] CHLORIDE 107 98 - 107 mmol/L [facility] LIC# [id number] CO2 23 22 - 31 mmol/L [facility] LIC# [id number] BUN 27(H) 6 - 23 mg/dL [facility] LIC# [id number] CREATININE 1.24(H) 0.50 - 1.20 mg/dL [facility] LIC# [id number] GLUCOSE 110(H) 70 - 100 mg/dL [facility] LIC# [id number] ALBUMIN 4.0 3.5 - 5.2 g/dL [facility] LIC# [id number] TOTAL PROTEIN 6.8 6.4 - 8.3 g/dL [facility] LIC# [id number] CALCIUM 9.4 8.8 - 10.7 mg/dL [facility] LIC# [id number] ALKALINE PHOSPHATASE 112 40 - 129 U/L [facility] LIC# [id number] TOTAL BILIRUBIN 0.4 0.2 - 1.2 mg/dL [facility] LIC# [id number] AST 14 <41 U/L [facility] LIC# [id number] ALT 17 <42 U/L [facility] LIC# [id number] GLOBULIN 2.8 2.3 - 4.2 g/dL [facility] LIC# [id number] EGFR 57(L) >59 mL/min/1.7 3m2 [facility] LIC# [id number] Comment:Estimated glomerular filtration rate calculated using the CKD-EPI refit equation. ANION GAP 12 7 - 17 mmol/L [facility] LIC# [id number] Blood 12/06/2024 6:47 AM EDT 12/06/2024 7:12 AM EDT us Scott Souza MD LAB BLOOD ORDERABLES Final Result [facility] LIC# [id number] [address] [place] [address] * (ABNORMAL) CBC and differential (12/06/2024 6:47 AM EDT) WBC 5.89 4.00 - 10.00 K/uL [facility] LIC# [id number] RBC 3.82(L) 4.50 - 6.40 M/uL [facility] LIC# [id number] HGB 11.3(L) 13.5 - 18.0 g/dL [facility] LIC# [id number] HCT 35.5(L) 40.0 - 54.0 % [facility] LIC# [id number] PLT 189 150 - 450 K/uL [facility] LIC# [id number] MCV 92.9 80.0 - 100.0 fL [facility] LIC# [id number] MCH 29.6 27.0 - 32.0 pg [facility] LIC# [id number] MCHC 31.8(L) 32.0 - 36.0 g/dL [facility] LIC# [id number] RDW 15.4(H) 11.5 - 14.5 % [facility] LIC# [id number] MPV 9.8 8.4 - 12.0 fL [facility] LIC# [id number] NRBC 0.00 0 /100 WBCs [facility] LIC# [id number] ABSOLUTE NRBC 0.00 0 K/uL [facility] LIC# [id number] DIFF METHOD Auto [facility] LIC# [id number] NEUTS 59.3 48.0 - 76.0 % [facility] LIC# [id number] LYMPHS 26.7 18.0 - 41.0 % [facility] LIC# [id number] MONOS 11.5(H) 4.0 - 11.0 % [facility] LIC# [id number] EOS 1.7 0.0 - 5.0 % [facility] LIC# [id number] BASOS 0.3 0.0 - 1.5 % [facility] LIC# [id number] % IMMATURE GRANS 0.5 0.0 - 1.0 % [facility] LIC# [id number] ABSOLUTE NEUTS 3.49 1.92 - 7.60 K/uL [facility] LIC# [id number] ABSOLUTE LYMPHS 1.57 0.72 - 4.10 K/uL [facility] LIC# [id number] ABSOLUTE MONOS 0.68 0.16 - 1.10 K/uL [facility] LIC# [id number] ABSOLUTE EOS 0.10 0.00 - 0.50 K/uL [facility] LIC# [id number] ABSOLUTE BASOS 0.02 0.00 - 0.15 K/uL [facility] LIC# [id number] ABS IMMATURE GRANS 0.03 0.00 - 0.10 K/uL [facility] LIC# [id number] Blood 12/06/2024 6:47 AM EDT 12/06/2024 7:12 AM EDT Scott Souza MD LAB BLOOD ORDERABLES Final Result [facility] LIC# [id number] [address] [id number] * Outside Procedure (11/16/2024 3:25 PM EDT) Historical Provider PROCEDURE/MINOR SURGICAL PERFORMABLES Final Result * Outside CT Abd/pelvis Report Only (11/16/2024 3:21 PM EDT) Historical Provider IMG CT ABD/PELVIS Final R esult from Last 3 Months Insurance MEDICARE PART A & B [employer] MEDEX SUPPLEMENT MEDICARE PART A & B [employer] MEDEX SUPPLEMENT MEDICARE PART A & B [facility] MEDEX SUPPLEMENT MEDICARE PART A & B embraase [employer] MEDEX SUPPLEMENT MEDICARE PART A & B embraase [employer] MEDEX SUPPLEMENT MEDICARE PART A & B [employer] MEDEX SUPPLEMENT MEDICARE PART A & B [employer] MEDEX SUPPLEMENT MEDICARE PART A & B [employer] MEDEX SUPPLEMENT MEDICARE PART A & B embraase [employer] MEDEX SUPPLEMENT Care Teams Net Developer With Wcf Relationship Specialty Start Date End Date Aram Modi MD [address] [place] [address] PCP - General 01/15/23 Aram Modi MD [facility] [place] [address] Internal Medicine 01/15/23 Scott Souza MD [address] [place] [address] [email or web address] Oncology 12/08/15 Alex Medina MD, MPH [address] [place] [id number] [email or web address] Gastroenterology 11/23/20 Additional Source Comments The information contained in this document represents components of the legal health record. It is not the complete legal health record.[facility]
--- OUTSIDE RECORDS SUMMARY | 2025-02-16 09:05 | XMS_ITS | Encounter Summary ---
Author Organization [facility] Address [address] [place] [address] Care Team Providers Care Technologist Development Name Role Phone Gael Coffman MD Primary Care Provider Unavail able Aram Modi MD Primary Care Provider Yanet Gilmore Pcp Primary Care Provider UnavailRavinder Wallace MD Unavailable [phone] Fabien Burgos NP Unavailable [phone] Aram Modi MD Primary Care Provider Angelica Cardozo MD Unavailable [phone] Encounter Details Date Type Department Care Team Description 01/07/2017 [facility] Medical Records [address] [place] [id number] Abstract, Provider Social History Tobacco Use Types [...] on filedocumented in this encounter Care Teams Technologist Development Relationship Specialty Start Date End Date Gael Coffman MD PCP - General 06/10/01 04/21/17 Aram Modi MD PCP - General Internal Medicine 04/22/17 09/10/20 Community, Pcp PCP - General Internal Medicine 09/11/20 02/17/23 Aram Modi MD PCP - General Internal Medicine 02/18/23 Ravinder Jose MD Specialist Cardiology 02/11/23 Fabien Burgos NP Specialist Cardiology 02/11/23 Angelica Price MD [address] [place] [address] Specialist Cardiology 03/11/23 documented as of this encounter
--- OUTSIDE RECORDS SUMMARY | 2025-02-16 09:05 | XMS_ITS | Encounter Summary ---
Author Organization [facility] Address [address] [place] [address] Care Team Providers Care Hand Cigar Making Supervisor Name Role Phone Gael Coffman MD Primary Care Provider Unavail able Aram Modi MD Primary Care Provider Luis E Parker Primary Care Provider UnavailRavinder Wallace MD Unavailable [phone] Fabien Burgos NP Unavailable [phone] Aram Modi MD Primary Care Provider Angelica Cardozo MD Unavailable [phone] Encounter Details Date Type Department Care Team Description 11/28/2016 [facility] Medical Records [address] [place] [address] Manolo Hurtado MD Social History Tobacco Use [...] filedocumented in this encounter Care Teams Hand Cigar Making Supervisor Relationship Specialty Start Date End Date Gael Coffman MD PCP - General 06/10/01 04/21/17 Aram Modi MD PCP - General Internal Medicine 04/22/17 09/10/20 Community, Pcp PCP - General Internal Medicine 09/11/20 02/17/23 Aram Modi MD PCP - General Internal Medicine 02/18/23 Ravinder Jose MD Specialist Cardiology 02/11/23 Fabien Burgos NP Specialist Cardiology 02/11/23 Angelica Price MD [address] [place] [address] Specialist Cardiology 03/11/23 documented as of this encounter
--- OUTSIDE RECORDS SUMMARY | 2025-02-16 09:05 | XMS_ITS | Encounter Summary ---
Author Organization [facility] Address [address] [place] [address] Care Team Providers Care Shipping Lead Person Name Role Phone Gael Coffman MD Primary Care Provider Unavail able Aram Modi MD Primary Care Provider Luis E Parker Primary Care Provider UnavailRavinder Wallace MD Unavailable [phone] Fabien Burgos NP Unavailable [phone] Aram Modi MD Primary Care Provider Angelica Cardozo MD Unavailable [phone] Encounter Details Date Type Department Care Team Description 11/16/2016 [facility] Medical Records [address] [place] [address] Manolo Hurtado MD Social History Tobacco Use [...] on filedocumented in this encounter Care Teams Shipping Lead Person Relationship Specialty Start Date End Date Gael Coffman MD PCP - General 06/10/01 04/21/17 Aram Modi MD PCP - General Internal Medicine 04/22/17 09/10/20 Community, Pcp PCP - General Internal Medicine 09/11/20 02/17/23 Aram Modi MD PCP - General Internal Medicine 02/18/23 Ravinder Jose MD Specialist Cardiology 02/11/23 Fabien Burgos NP Specialist Cardiology 02/11/23 Angelica Price MD [address] [place] [address] Specialist Cardiology 03/11/23 documented as of this encounter
--- OUTSIDE RECORDS SUMMARY | 2025-02-16 09:05 | XMS_ITS | Encounter Summary ---
Author Organization [facility] Address [address] [place] [address] Care Team Providers Care Medication Aid Name Role Phone Gael Coffman MD Primary Care Provider Unavail able Aram Modi MD Primary Care Provider Yanet Gilmore Pcp Primary Care Provider UnavailRavinder Wallace MD Unavailable [phone] Fabien Burgos NP Unavailable [phone] Aram Modi MD Primary Care Provider Angelica Cardozo MD Unavailable [phone] Reason for Visit * Reason Onset Date Comments Faxed Refill 11/13/2016 Encounter Details Date Type Department Care Team Description 11/13/2016 Telephone Adult Medicine [facility] [address] [place] [address] Gael Coffman MD Faxed Refill Social History [...] / Plan[place] / Product Type: MEDICARE [id number] documented in this encounter Plan of Treatment Not on file documented as of this encounter Visit Diagnoses Not on filedocumented in this encounter Care Teams Medication Aid Relationship Specialty Start Date End Date Gael Coffman MD PCP - General 06/10/01 04/21/17 Aram Modi MD PCP - General Internal Medicine 04/22/17 09/10/20 Community, Pcp PCP - General Internal Medicine 09/11/20 02/17/23 Aram Modi MD PCP - General Internal Medicine 02/18/23 Ravinder Jose MD Specialist Cardiology 02/11/23 Fabien Burgos NP Specialist Cardiology 02/11/23 Angelica Price MD [address] [place] [address] Specialist Cardiology 03/11/23 documented as of this encounter
--- OUTSIDE RECORDS SUMMARY | 2025-02-16 09:05 | XMS_ITS | Encounter Summary ---
Author Organization [facility] Address [address] [place] [address] Care Team Providers Care Tire Duster Name Role Phone Gael Coffman MD Primary Care Provider Unavail able Aram Modi MD Primary Care Provider Luis E Parker Primary Care Provider UnavailRavinder Wallace MD Unavailable [phone] Fabien Burgos NP Unavailable [phone] Aram Modi MD Primary Care Provider Angelica Cardozo MD Unavailable [phone] Encounter Details Date Type Department Care Team Description 12/03/2012 Water Resource Engineer Report Medical Records [address] [place] [address] Scott Souza Social History Tobacco Use Types [...] on filedocumented in this encounter Care Teams Tire Duster Relationship Specialty Start Date End Date Gael Coffman MD PCP - General 06/10/01 04/21/17 Aram Modi MD PCP - General Internal Medicine 04/22/17 09/10/20 Community, Pcp PCP - General Internal Medicine 09/11/20 02/17/23 Aram Modi MD PCP - General Internal Medicine 02/18/23 Ravinder Jose MD Specialist Cardiology 02/11/23 Fabien Burgos NP Specialist Cardiology 02/11/23 Angelica Price MD [address] [place] [address] Specialist Cardiology 03/11/23 documented as of this encounter
--- OUTSIDE RECORDS SUMMARY | 2025-02-16 09:05 | XMS_ITS | Encounter Summary ---
Author Organization [facility] Address [address] [place] [address] Care Team Providers Care Screen Printing Machine Operator Name Role Phone Gael Coffman MD Primary Care Provider Unavail able Aram Modi MD Primary Care Provider Yanet Gilmore Pcp Primary Care Provider UnavailRavinder Wallace MD Unavailable [phone] Fabien Burgos NP Unavailable [phone] Aram Modi MD Primary Care Provider Angelica Cardozo MD Unavailable [phone] Reason for Visit * Reason Onset Date Comments medication problems 11/27/2016 Encounter Details Date Type Department Care Team Description 11/27/2016 Telephone Adult Medicine [facility] [address] [place] [address] Gael Coffman MD medication problems Social History [...] Notes * Telephone Encounter - Diamond Joya [facility] - 12/02/2016 10:48 AM EDT Telephone Information: Pharm states they did not get the rx for inspra Needs to go to [facility] * Telephone Encounter - Gael Coffman [...] / Plan: [place] / Product Type: MEDICARE [id number] * Telephone Encounter - Sadie Collins M.A. - 11/27/2016 9:37 AM EDT Please set up refill encounter and send to the prescription pool. Thank you * Telephone Encounter - Prasad Hicks - 11/27/2016 9:00 AM EDT Who is calling? A pharmacist: Pharmacy: [facility] Pharmacist Name: [facility] Name of the medication atorvastatin (LIPITOR) 10 MG tablet, eplerenone (INSPRA) 50 MG tablet What is the specific problem or interaction? Pharmacy states pt called them and stated all his medications are supposed to be sent to [facility]. They have not received medication, asking to send to [facility] mailorder. If the patient is having a problem with taking the med - how long has the problem been going on? N/A documented in this encounter Plan of Treatment Not on file documented as of this encounter Visit Diagnoses Not on filedocumented in this encounter Care Teams Screen Printing Machine Operator Relationship Specialty Start Date End Date Gael Coffman MD PCP - General 06/10/01 04/21/17 Aram Modi MD PCP - General Internal Medicine 04/22/17 09/10/20 [facility] PCP - General Internal Medicine 09/11/20 02/17/23 Aram Modi MD PCP - General Internal Medicine 02/18/23 Ravinder Jose MD Specialist Cardiology 02/11/23 Fabien Burgos NP Specialist Cardiology 02/11/23 Angelica Price MD [address] [place] [address] Specialist Cardiology 03/11/23 documented as of this encounter
--- OUTSIDE RECORDS SUMMARY | 2025-02-16 09:05 | XMS_ITS | Encounter Summary ---
Author Organization [facility] Address [address] [place] [address] Phone Care Team Providers Care Commodities Trader Name Role Phone Aram Modi MD Primary Care Provider Aram Modi MD Unavailable Scott Souza MD Unavailable Alex Medina MD, MPH Unavailable Encounter Details Date Type Department Care Team (Late st Contact Info) Description 02/10/2025 Orders Only [facility] Medical Specialties [address] [facility] ASB2-[address] [place] [address] Gracie Avalos PA-C [address] [address] [email or web address] Cyst of pancreas (Primary Dx) Social History Tobacco Use Types [...] Description 02/17/2025 8:00 AM EDT Pre-Admission Testing [address] [address] Aixa Luciano MD [address] [place] [address] [email or web address] 03/01/2025 Procedure Pass [address] [address] 03/01/2025 3:45 PM EDT Hospital Encounter [address] [address] Aixa Luciano MD [address] [place] [address] [email or web address] 03/01/2025 3:45 PM EDT - 03/01/2025 4:30 PM EDT Surgery [facility] [address] [place] [address] Aixa Luciano MD [address] [place] [address], [address] [place] [address] [email or web address] ENDOSCOPIC ULTRASOUND /FNA - growing cyst in head 05/18/2025 11:00 AM EST Telemedicine [facility] Medical Specialties 45 [facility]2 [place] [address] Alex Medina MD, MPH [address] [place] [address] [email or web address] Scheduled Procedures Name Priority Associated Diagnoses Date/Ti mt ENDOSCOPIC ULTRASOUND Cyst of pancreas 03/01/2025 3:45 PM EDT documented as of this encounter Visit Diagnoses Diagnosis Cyst of pancreas- Primary Cyst and pseudocyst of pancreas Cyst of pancreas Cyst and pseudocyst of pancreas documented in this encounter Care Teams Commodities Trader Relationship Specialty Start Date End Date Aram Modi MD [facility] [address] PCP - General 01/15/23 Aram Modi MD [facility] [address] Internal Medicine 01/15/23 Scott Souza MD [address] [place] [address] [email or web address] Medical Oncology 12/08/15 Alex Medina MD, MPH [address] [place] [address] [email or web address] Gastroenterology 11/23/20 documented as of this encounter Additional Source Comments The information contained in this document represents components of the legal health record. It is not the complete legal health record.[facility]
--- OUTSIDE RECORDS SUMMARY | 2025-02-16 09:05 | XMS_ITS | Encounter Summary ---
Author Organization [facility] Address [address] [place] [address] Care Team Providers Care Ingredient Scaler Helper Name Role Phone Gael Coffman MD Primary Care Provider Unavail able Aram Modi MD Primary Care Provider Yanet Gilmore Pcp Primary Care Provider UnavailRavinder Wallace MD Unavailable [phone] Fabien Burgos NP Unavailable [phone] Aram Modi MD Primary Care Provider Angelica Cardozo MD Unavailable [phone] Reason for Visit * Reason Onset Date Comments TEST RESULTS 06/09/2014 Encounter Details Date Type Department Care Team Description 06/09/2014 Pt. Non Urgent Medical Question Adult Medicine - [place] [address] [place] [address] Gael Coffman MD Social History Tobacco Use [...] Dear Dr. Coffman, Received test results in [facility]. However, don't understand. Would greatly appreciate it if you cansend in laymans terms what they mean. documented in this encounter Plan of Treatment Not on file documented as of this encounter Visit Diagnoses Not on filedocumented in this encounter Care Teams Ingredient Scaler Helper Relationship Specialty Start Date End Date Gael Coffman MD PCP - General 06/10/01 04/21/17 Aram Modi MD PCP - General Internal Medicine 04/22/17 09/10/20 [facility], Pcp PCP - General Internal Medicine 09/11/20 02/17/23 Aram Modi MD PCP - General Internal Medicine 02/18/23 Ravinder Jose MD Specialist Cardiology 02/11/23 Fabien Burgos NP Specialist Cardiology 02/11/23 Angelica Price MD [address] [place] [address] Specialist Cardiology 03/11/23 documented as of this encounter
--- OUTSIDE RECORDS SUMMARY | 2025-02-16 09:05 | XMS_ITS | Encounter Summary ---
Author Organization [facility] Address [address] [place] [address] Care Team Providers Care Wind Turbine Blade Repair Technician Name Role Phone Gael Coffman MD Primary Care Provider Unavail able Aram Modi MD Primary Care Provider Yanet Gilmore Pcp Primary Care Provider UnavailRavinder Wallace MD Unavailable [phone] Fabien Burgos NP Unavailable [phone] Aram Modi MD Primary Care Provider Angelica Cardozo MD Unavailable [phone] Encounter Details Date Type Department Care Team Description 07/06/2014 Farm Equipment Mechanic Apprentice Report Medical Records [address] [place] [address] [facility] Social History Tobacco Use Types [...] on filedocumented in this encounter Care Teams Wind Turbine Blade Repair Technician Relationship Specialty Start Date End Date Gael Coffman MD PCP - General 06/10/01 04/21/17 Aram Modi MD PCP - General Internal Medicine 04/22/17 09/10/20 Community, Pcp PCP - General Internal Medicine 09/11/20 02/17/23 Aram Modi MD PCP - General Internal Medicine 02/18/23 Ravinder Jose MD Specialist Cardiology 02/11/23 Fabien Burgos NP Specialist Cardiology 02/11/23 Angelica Price MD [address] [place] [address] Specialist Cardiology 03/11/23 documented as of this encounter
--- OUTSIDE RECORDS SUMMARY | 2025-02-16 09:05 | XMS_ITS | Encounter Summary ---
Author Organization [facility] Address [address] [place] [address] Care Team Providers Care Shank Maker Name Role Phone Gael Coffman MD Primary Care Provider Unavail able Aram Modi MD Primary Care Provider Luis E Parker Primary Care Provider UnavailRavinder Wallace MD Unavailable [phone] Fabien Burgos NP Unavailable [phone] Aram Modi MD Primary Care Provider Angelica Cardozo MD Unavailable Encounter Details Date Type Department Care Team Description 12/13/2016 Adobe Developer Report Medical Records [address] [place] [address] Abstract, Provider Social History Tobacco Use Types [...] on filedocumented in this encounter Care Teams Shank Maker Relationship Specialty Start Date End Date Gael Coffman MD PCP - General 06/10/01 04/21/17 Aram Modi MD PCP - General Internal Medicine 04/22/17 09/10/20 Community, Pcp PCP - General Internal Medicine 09/11/20 02/17/23 Aram Modi MD PCP - General Internal Medicine 02/18/23 Ravinder Jose MD Specialist Cardiology 02/11/23 Fabien Burgos NP Specialist Cardiology 02/11/23 Angelica Price MD [address] [place] [address] Specialist Cardiology 03/11/23 documented as of this encounter
--- OUTSIDE RECORDS SUMMARY | 2025-02-16 09:05 | XMS_ITS | Encounter Summary ---
Author Organization [facility] Address [address] [place] [address] Care Team Providers Care Special Education Aide Name Role Phone Gael Coffman MD Primary Care Provider Unavail able Aram Modi MD Primary Care Provider Yanet Gilmore Pcp Primary Care Provider UnavailRavinder Wallace MD Unavailable [phone] Fabien Burgos NP Unavailable [phone] Aram Modi MD Primary Care Provider Angelica Cardozo MD Unavailable [phone] Encounter Details Date Type Department Care Team Description 05/30/2014 [facility] Medical Records [address] [place] [address] Zaid Cortes MD Social History Tobacco Use [...] on filedocumented in this encounter Care Teams Special Education Aide Relationship Specialty Start Date End Date Gael Coffman MD PCP - General 06/10/01 04/21/17 Aram Modi MD PCP - General Internal Medicine 04/22/17 09/10/20 Community, Pcp PCP - General Internal Medicine 09/11/20 02/17/23 Aram Modi MD PCP - General Internal Medicine 02/18/23 Ravinder Jose MD Specialist Cardiology 02/11/23 Fabien Burgos NP Specialist Cardiology 02/11/23 Angelica Price MD [address] [place] [address] Specialist Cardiology 03/11/23 documented as of this encounter
--- OUTSIDE RECORDS SUMMARY | 2025-02-16 09:06 | XMS_ITS | Encounter Summary ---
Author Organization [facility] Address [address] [place] [address] Care Team Providers Care Mechanic Recovery Name Role Phone Gael Coffman MD Primary Care Provider Unavail able Aram Modi MD Primary Care Provider Yanet Gilmore Pcp Primary Care Provider UnavailRavinder Wallace MD Unavailable [phone] Fabien Burgos NP Unavailable [phone] Aram Modi MD Primary Care Provider Angelica Cardozo MD Unavailable [phone] Encounter Details Date Type Department Care Team Description 07/06/2015 Plant Culture Manager Report Medical Records [address] [place] [address] Reilly Gaffney MD Social History Tobacco Use [...] filedocumented in this encounter Care Teams Mechanic Recovery Relationship Specialty Start Date End Date Gael Coffman MD PCP - General 06/10/01 04/21/17 Aram Modi MD PCP - General Internal Medicine 04/22/17 09/10/20 Community, Pcp PCP - General Internal Medicine 09/11/20 02/17/23 Aram Modi MD PCP - General Internal Medicine 02/18/23 Ravinder Jose MD Specialist Cardiology 02/11/23 Fabien Burgos NP Specialist Cardiology 02/11/23 Angelica Price MD [address] [place] [address] Specialist Cardiology 03/11/23 documented as of this encounter
--- OUTSIDE RECORDS SUMMARY | 2025-02-16 09:06 | XMS_ITS | Encounter Summary ---
Author Organization [facility] Address [address] [place] [address] Care Team Providers Care Favor Maker Name Role Phone Aram Modi MD Primary Care Provider Unakuldeep Gilmore Pcp Primary Care Provider [facility] Ravinder Salvador MD Unavailable [phone] Fabien Burgos NP Unavailable [phone] Aram Modi MD Primary Care Provider Unava Angelica Russell MD Unavailable [phone] Encounter Details Date Type Department Care Team Description 11/01/2018 Pt. Non Urgent Medical Question Rheumatology - [place] [address] [place] [address] Simon Garcia MD Social History Tobacco Use [...] on filedocumented in this encounter Care Teams Favor Maker Relationship Specialty Start Date End Date Aram Modi MD PCP - General Internal Medicine 04/22/17 09/10/20 [facility] PCP - General Internal Medicine 09/11/20 02/17/23 Aram Modi MD PCP - General Internal Medicine 02/18/23 Ravinder Jose MD Specialist Cardiology 02/11/23 Fabien Burgos NP Specialist Cardiology 02/11/23 Angelica Price MD [address] [place] [address] Specialist Cardiology 03/11/23 documented as of this encounter
--- OUTSIDE RECORDS SUMMARY | 2025-02-16 09:06 | XMS_ITS | Encounter Summary ---
Author Organization [facility] Address [address] [place] [address] Phone Care Team Providers Care Synthetic Cloth Binding Cutter Name Role Phone Gael Coffman MD Primary Care Provider Unav ailable Aram Modi MD Primary Care Provider Aram Modi MD Primary Care Provider Aram Modi MD Unavailable Scott Souza MD Unavailable Alex Medina MD, MPH Unavailable Encounter Details Date Type Department Care Team (Late st Contact Info) Description 12/08/2020 Procedure Pass [facility], [facility] [place], [place] [address] [facility], Floor [address] [place] [address] Social History Tobacco Use Types Packs/Day Years Used Date Smoking Tobacco: Former Sex and Gender Information Value Date Recorded Sex Assigned at Male 04/07/2020 10:14 AM EST Legal Sex Male 4:49 PM EST Gender Identity Male 04/07/2020 10:14 AM EST Sexual Orientation Straight 04/07/2020 10 :14 AM EST documented as of this encounter Plan of Treatment Upcoming Encounters Date Type Department Care Team (Latest Contact Info) Description 02/17/2025 8:00 AM EDT Pre-Admission Testing [address] [address] Aixa Luciano MD [address] [place] [address], [address] [place] [address] [email or web address] 03/01/2025 Procedure Pass [address] [address] 03/01/2025 3:45 PM EDT Hospital Encounter [address] [address] Aixa Luciano MD [address] [place] [address], [address] [address] [email or web address] 03/01/2025 3:45 PM EDT - 03/01/2025 4:30 PM EDT Surgery [address] [address] Aixa Luciano MD [address] [place] [address], [address] [place] [address] [email or web address] ENDOSCOPIC ULTRASOUND /FNA - growing cyst in head 05/18/2025 11:00 AM EST Telemedicine [facility] [address] [facility] [place] [address] Alex Medina MD, MPH [address] [place] [address], [place] [address] [email or web address] Scheduled Procedures Name Priority Associated Diagnoses Date/Ti me ENDOSCOPIC ULTRASOUND Cyst of pancreas 03/01/2025 3:45 PM EDT documented as of this encounter Visit Diagnoses Not on filedocumented in this encounter Care Teams Synthetic Cloth Binding Cutter Relationship Specialty Start Date End Date Gael Coffman MD PCP - General 09/23/14 01/17/22 Aram Modi MD [facility] [address] PCP - General Internal Medicine 01/18/22 01/14/23 Aram Modi MD [address], [place] [address] PCP - General 01/15/23 Aram Modi MD [facility] [address] Internal Medicine 01/15/23 Scott Souza MD [address] [place] [address] [email or web address] Medical Oncology 12/08/15 Alex Medina MD, MPH [address] [place] [address] [email or web address] Gastroenterology 11/23/20 documented as of this encounter Additional Source Comments The information contained in this document represents components of the legal health record. It is not the complete legal health record.[facility]
--- OUTSIDE RECORDS SUMMARY | 2025-02-16 09:06 | XMS_ITS | Encounter Summary ---
Author Organization [facility] Address [address] [place] [address] Care Team Providers Care Axminster Rug Setter Name Role Phone Aram Modi MD Primary Care Provider Yanet Gilmore Pcp Primary Care Provider Unavailsw[facility] Ravinder Salvador MD Unavailable [phone] Fabien Burgos NP Unavailable [phone] Aram Modi MD Primary Care Provider Angelica Cardozo MD Unavailable [phone] Reason for Visit * Reason Onset Date Comments Faxed Refill 08/09/2020 Encounter Details Date Type Department Care Team Description 08/09/2020 Refill Medicine/Pediatrics - [address] [address] Aram Modi MD Faxed Refill Social History [...] / Plan: [place] / Product Type: MEDICARE [id number] documented in this encounter Plan of Treatment Not on file documented as of this encounter Visit Diagnoses Not on filedocumented in this encounter Care Teams Axminster Rug Setter Relationship Specialty Start Date End Date Aram Modi MD PCP - General Internal Medicine 04/22/17 09/10/20 [facility] PCP - General Internal Medicine 09/11/20 02/17/23 Aram Modi MD PCP - General Internal Medicine 02/18/23 Ravinder Jose MD Specialist Cardiology 02/11/23 Fabien Burgos NP Specialist Cardiology 02/11/23 Angelica Price MD [address] [place] [address] Specialist Cardiology 03/11/23 documented as of this encounter
--- OUTSIDE RECORDS SUMMARY | 2025-02-16 09:06 | XMS_ITS | Encounter Summary ---
Author Organization [facility] Address [address] [place] [address] Phone Care Team Providers Care Bulldozer Operator Name Role Phone Aram Modi MD Primary Care Provider Aram Modi MD Primary Care Provider Aram Modi MD Unavailable Scott Souza MD Unavailable Alex Medina MD, MPH Unavailable [phone] Encounter Details Date Type Department Care Team (Late st Contact Info) Description 01/18/2022 Procedure Pass [facility], [facility], [facility] [address] [facility], [address] [place] [address] Social History Tobacco Use Types Packs/Day [...] Description 02/17/2025 8:00 AM EDT Pre-Admission Testing [address] [address] Aixa Luciano MD [address] [place] [address], [address] [place] [address] [email or web address] 03/01/2025 Procedure Pass [address] [address] 03/01/2025 3:45 PM EDT Hospital Encounter [address] [address] Aixa Luciano MD [address] [place] [address], [address] [address] [email or web address] 03/01/2025 3:45 PM EDT - 03/01/2025 4:30 PM EDT Surgery [address] [address] Aixa Luciano MD [address] [place] [address], [address] [address] [email or web address] ENDOSCOPIC ULTRASOUND /FNA - growing cyst in head 05/18/2025 11:00 AM EST Telemedicine [facility] Medical Specialties [address] [facility] [place] [address] Alex Medina MD, MPH [address] [facility], [facility] [place] [address] [email or web address] Scheduled Procedures Name Priority Associated Diagnoses Date/Ti me ENDOSCOPIC ULTRASOUND Cyst of pancreas 03/01/2025 3:45 PM EDT documented as of this encounter Visit Diagnoses Not on filedocumented in this encounter Care Teams Bulldozer Operator Relationship Specialty Start Date End Date Aram Modi MD [address] [place] [address] PCP - General Internal Medicine 01/18/22 01/14/23 Aram Modi MD [address] [place] [address] PCP - General 01/15/23 Aram Modi MD [address] [place] [address] Internal Medicine 01/15/23 Scott Souza MD [address] [place] [phone] [email or web address] Medical Oncology 12/08/15 Alex Medina MD, MPH [address] [place] [id number] [email or web address] 11/23/20 documented as of this encounter Additional Source Comments The information contained in this document represents components of the legal health record. It is not the complete legal health record.[facility]
--- OUTSIDE RECORDS SUMMARY | 2025-02-16 09:06 | XMS_ITS | Encounter Summary ---
Author Organization [facility] Address [address] [place] [address] Care Team Providers Care Oyster Grader Name Role Phone Gael Coffman MD Primary Care Provider Unavail able Aram Modi MD Primary Care Provider Yanet Gilmore Pcp Primary Care Provider UnavailRavinder Wallace MD Unavailable [phone] Fabien Burgos NP Unavailable Aram Modi MD Primary Care Provider Angelica Cardozo MD Unavailable [phone] Encounter Details Date Type Department Care Team Description 09/17/2016 Telecommunications Support Report Medical Records [address] [place] [address] Jeet Saenz MD, MD Social History Tobacco [...] on filedocumented in this encounter Care Teams Oyster Grader Relationship Specialty Start Date End Date Gael Coffman MD PCP - General 06/10/01 04/21/17 Aram Modi MD PCP - General Internal Medicine 04/22/17 09/10/20 Community, Pcp PCP - General Internal Medicine 09/11/20 02/17/23 Aram Modi MD PCP - General Internal Medicine 02/18/23 Ravinder Jose MD Specialist Cardiology 02/11/23 Fabien Burgos NP Specialist Cardiology 02/11/23 Angelica Price MD [address] [place] [address] Specialist Cardiology 03/11/23 documented as of this encounter
--- OUTSIDE RECORDS SUMMARY | 2025-02-16 09:06 | XMS_ITS | Encounter Summary ---
Author Organization [facility] Address [address] [place] [address] Care Team Providers Care Supervisor Customer Complaint Service Name Role Phone Aram Modi MD Primary Care Provider Yanet Gilmore, Pcp Primary [facility] Provider [facility] Ravinder Salvador MD Unavailable [phone] Fabien Burgos NP Unavailable [phone] Aram Modi MD Primary Care Provider Citlalyor Angelica Russell MD Unavailable [phone] Encounter Details Date Type Department Care Team Description 06/26/2018 [facility] - [address] [id number] Aram Modi MD Social History Tobacco Use [...] filedocumented in this encounter Care Teams Supervisor Customer Complaint Service Relationship Specialty Start Date End Date Aram Modi MD PCP - General Internal Medicine 04/22/17 09/10/20 [facility], Pcp PCP - General Internal Medicine 09/11/20 02/17/23 Aram Modi MD PCP - General Internal Medicine 02/18/23 Ravinder Jose MD Specialist Cardiology 02/11/23 Fabien Burgos NP Specialist Cardiology 02/11/23 Angelica Price MD [address] [place] [address] Specialist Cardiology 03/11/23 documented as of this encounter
--- OUTSIDE RECORDS SUMMARY | 2025-02-16 09:06 | XMS_ITS | Encounter Summary ---
Author Organization [facility] Address [address] [place] [address] Care Team Providers Care Permit Review Assistant Name Role Phone Gael Coffman MD Primary Care Provider Unavail able Aram Modi MD Primary Care Provider Yanet Gilmore Pcp Primary Care Provider UnavailRavinder Wallace MD Unavailable [phone] Fabien Burgos NP Unavailable [phone] Aram Modi MD Primary Care Provider Angelica Cardozo MD Unavailable [phone] Encounter Details Date Type Department Care Team Description 05/22/2015 Tailor Fitter Report Medical Records [address] [place] [address] Reilly Gaffney MD Social History Tobacco Use [...] filedocumented in this encounter Care Teams Permit Review Assistant Relationship Specialty Start Date End Date Gael Coffman MD PCP - General 06/10/01 04/21/17 Aram Modi MD PCP - General Internal Medicine 04/22/17 09/10/20 [facility], Pcp PCP - General Internal Medicine 09/11/20 02/17/23 Aram Modi MD PCP - General Internal Medicine 02/18/23 Ravinder Jose MD Specialist Cardiology 02/11/23 Fabien Burgos NP Specialist Cardiology 02/11/23 Angelica Price MD [address] [place] [address] Specialist Cardiology 03/11/23 documented as of this encounter
--- OUTSIDE RECORDS SUMMARY | 2025-02-16 09:06 | XMS_ITS | Encounter Summary ---
Author Organization [facility] Address [address] [place] [address] Care Team Providers Care Air Sampler Name Role Phone Gael Coffman MD Primary Care Provider Unavail able Aram Modi MD Primary Care Provider Yanet Gilmore Pcp Primary Care Provider UnavailRavinder Wallace MD Unavailable [phone] Fabien Bugros NP Unavailable [phone] Aram Modi MD Primary Care Provider Angelica Cardozo MD Unavailable [phone] Reason for Visit * Reason Onset Date Comments Medication 07/16/2016 Encounter Details Date Type Department Care Team Description 07/16/2016 Telephone Adult Medicine [facility] [address] [place] [address] Gael Coffman MD Medication Social History Tobacco [...] / Plan[place] / Product Type: MEDICARE [id number] documented in this encounter Plan of Treatment Not on file documented as of this encounter Visit Diagnoses Not on filedocumented in this encounter Care Teams Air Sampler Relationship Specialty Start Date End Date Gael Coffman MD PCP - General 06/10/01 04/21/17 Aram Modi MD PCP - General Internal Medicine 04/22/17 09/10/20 [facility] PCP - General Internal Medicine 09/11/20 02/17/23 Aram Modi MD PCP - General Internal Medicine 02/18/23 Ravinder Jose MD Specialist Cardiology 02/11/23 Fabien Burgos NP Specialist Cardiology 02/11/23 Angelica Price MD [address] [address] Specialist Cardiology 03/11/23 documented as of this encounter
--- OUTSIDE RECORDS SUMMARY | 2025-02-16 09:06 | XMS_ITS | Encounter Summary ---
Author Organization [facility] Address [address] [place] [address] Care Team Providers Care Online Advertising Analyst Name Role Phone Gael Coffman MD Primary Care Provider Unavail able Aram Modi MD Primary Care Provider Yanet lopez [facility] Pcp Primary Care Provider UnavailRavinder Wallace MD Unavailable [phone] Fabien Burgos NP Unavailable [phone] Aram Modi MD Primary Care Provider Angelica Cardozo MD Unavailable Encounter Details Date Type Department Care Team Description 08/20/2016 [facility] Medical Records [address] [place] [address] Abstract, Provider Social History Tobacco Use Types [...] on filedocumented in this encounter Care Teams Online Advertising Analyst Relationship Specialty Start Date End Date Gael Coffman MD PCP - General 06/10/01 04/21/17 Aram Modi MD PCP - General Internal Medicine 04/22/17 09/10/20 [facility], Pcp PCP - General Internal Medicine 09/11/20 02/17/23 Aram Modi MD PCP - General Internal Medicine 02/18/23 Ravinder Jose MD Specialist Cardiology 02/11/23 Fabien Burgos NP Specialist Cardiology 02/11/23 Angelica Price MD [address] [place] [address] Specialist Cardiology 03/11/23 documented as of this encounter
--- OUTSIDE RECORDS SUMMARY | 2025-02-16 09:06 | XMS_ITS | Clinical Summary ---
Author Organization [facility] Address [address] [place] [address] Phone Care Team Providers Care Torque Tester Name Role Phone Aram Modi MD Primary Care Provider [phone] Allergies Active Allergy Reactions Criticality Noted Date Comments Morphine 08/06/2005 CONVULSIONS Medications allopurinoL (ZYLOPRIM) 100 mg tablet Take 2 tablets (200 mg total) by mouth 1 (one) time each day. 7 Active aspirin 81 mg EC tablet Take 1 tablet (81 mg total) by mouth 1 (one) time each day. 6 Active atorvastatin (LIPITOR) 40 mg tablet Take 1 tablet (40 mg total) by mouth 1 (one) time each day. 3 Active finasteride (PROSCAR) 5 mg tablet Take 1 tablet (5 mg total) by mouth 1 (one) time each day. Active omeprazole (PriLOSEC) [address] capsule Take 1 capsule (20 mg total) by mouth 1 (one) time each day. 6 Active predniSONE (DELTASONE) 1 mg tablet Take 1 tablet (1 mg total) by mouth 1 (one) time each day. 1 Active tamsulosin (FLOMAX) 0.4 mg 24 hr capsule Take 1 capsule (0.4 mg total) by mouth 1 (one) time each day. Take 30 mins after same meal every day. - 7 Active levothyroxine (SYNTHROID, LEVOTHROID) 88 mcg tablet Take by mouth 1 (one) time each day before breakfast. Active sacubitriL-valsarta n (Entresto) 49-51 mg per tabletIndications:O ther cardiomyopathy (CMS/HCC V24, CMS/HCC V28) Take 1 tablet by mouth 2 (two) times a day. 180 tablet 3 4 Active carvediloL (COREG) 3.125 mg tabletIndications:O ther cardiomyopathy (CMS/HCC V24, CMS/HCC V28) Take 1 tablet (3.125 mg total) by mouth 2 (two) times a day with meals. 180 each 3 5 09/24/19 26 Active eplerenone (INSPRA) 50 mg tabletIndications:O ther cardiomyopathy (CMS/HCC V24, CMS/HCC V28) Take 0.5 tablets (25 mg total) by mouth 1 (one) time each day. 90 tablet 3 5 Active Active Problems Problem Noted Date Diagnosed Date Pacemaker 03/26/2023 Overview (09/23/2024): February 2023 - presented with syncope found to have secondary a heart block along with history of left bundle branch block status post [employer] dual- chamber biventricular pacemaker Dr. Price at [facility] Assessment & Plan (11/29/2024 10:52 AM EDT): Functioning well on last device check. No significant arrhythmias. Continue to monitor via [facility] device clinic. Assessment & Plan (09/23/2024 10:26 AM EDT): Functioning well on last device check. No significant arrhythmias. Continue to monitor via [facility] device clinic. Assessment & Plan (09/23/2024 9:31 AM EDT): >>ASSESSMENT AND PLAN FOR SECOND DEGREE HEART BLOCK WRITTEN ON 05/17/2024 4:03 PM BY BROOKLYNN CHURCH MD Symptomatic high-grade AV block in the setting of marked left ventricular dysfunction has been treated with biventricular pacemaker implantation. The patient has normal pacer function and no significant alerts. We will continue to follow him in our device clinic. Orders: ECG 12 lead Coronary artery disease invo lving [place] coronary artery of [place] heart without angina pectoris 02/18/2023 Overview (09/23/2024): January 2023 cardiac catheterization showing minimal luminal irregularities of all vessels aside from a 30% stenosis in the proximal LAD 08/25/24 NM STRESS TEST WITH MYOCARDIAL PERFUSION 09/14/2024, 09/14/2024 09/08/2024 Interpretation Summary Nuclear imaging of the left ventricle shows a normal cavity size. Myocardial perfusion imaging of the left ventricle reveals no significant perfusion defects after CT attenuation correction was applied to the study. Gated SPECT imaging was performed which demonstrated normal left ventricular systolic function. The calculated LVEF is >70 %. TID ratio is normal. Impression Normal Regadenoson stress test with nuclear imaging. No chest pain or EKG changes consistent with ischemia. Nuclear imaging revealed no significant perfusion defects after attenuation correction was applied. There is a normal TID ratio. Gated SPECT imaging was performed and revealed an LVEF of >70 %. Signed by: AMADO Menendez on 09/14/2024 8:02 AM, Signed by: Kwasi Acevedo MD on 09/14/2024 11:13 AM Assessment & Plan (11/29/2024 10:52 AM EDT): Catheterization from 2022 showed no significant disease. Last Nuclear stress test from August 2024 showed no ischemic with pEF. Echocardiogram from 2023 showed normalized/preserved LV systolic function. No anginal symptoms. Continue with aspirin, atorvastatin, carvedilol, eplerenone and Entresto. We discussed risk reduction through lifestyle choices including healthy diet, routine exercise and weight management. Assessment & Plan (09/23/2024 10:26 AM EDT): Catheterization from 2022 showed no significant disease. Last Nuclear stress test from August 2024 showed no ischemic with pEF. Echocardiogram from 2023 showed normalized/preserved LV systolic function. No anginal symptoms. Continue with aspirin, atorvastatin, carvedilol, eplerenone and Entresto. We discussed risk reduction through lifestyle choices including healthy diet, routine exercise and weight management. Cardiomyopathy (CMS/HCC V24, CMS/HCC V28) 2022 Overview (09/23/2024): Suspected to be related to LBBB and infection January 2023 echocardiogram showing newly reduced LV systolic function LVEF 25 to 30% with severe global hypokinesis, abnormal septal motion consistent with conduction abnormality, akinesis of basal inferior wall, akinesis of apex and apical septum which was mildly aneurysmal, normal biatrial size, reduced RV global systolic function, no hemodynamically significant valvular disease and dilatation of the ascending aorta at 3.6 mm with ectasia noted June 2023 echocardiogram showing low normal LV systolic function LVEF 50 to 55% with mild concentric left ventricular hypertrophy, basal inferior wall hypokinesis, normal biatrial size, normal RV size and systolic function and no hemodynamically significant valvular disease Assessment & Plan (11/29/2024 10:52 AM EDT): 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 Echocardiogram from June 2023 showed normalized LV systolic function. Aside from lower extremity edema, he appears compensated on exam. Edema likely secondary to venous insufficiency. Continue with eplerenone, carvedilol, and Entresto. Consider adding loop diuretic with continued fluid retention. We reviewed heart failure management including low-sodium diet, symptom surveillance, daily weights and medication compliance. The patient is aware they may take extra diuretic for intermittent evidence of mild congestive signs and symptoms. If the increase of frequency of as needed diuretic becomes more regular than they will make our office aware. If the patient has weight gain over 3lbs in one day or 5lbs over several days, they are aware to contact our office. With any severe or sustained symptoms, they are aware to contact EMS via 911 and go to the emergency room. Will consider him for cardioMems in future with further exacerbations. 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 Echocardiogram from June 2023 showed normalized LV systolic function. Aside from lower extremity edema, he appears compensated on exam. Edema likely secondary to venous insufficiency and also may be related to the discontinuation of his eplerenone. Restart eplerenone at 25mg and reduce carvedilol to 3.125mg twice daily. BMP in one week. Continue with Entresto. Consider adding loop diuretic with continued fluid retention. We reviewed heart failure management including low-sodium diet, symptom surveillance, daily weights and medication compliance. The patient is aware they may take extra diuretic for intermittent evidence of mild congestive signs and symptoms. If the increase of frequency of as needed diuretic becomes more regular than they will make our office aware. If the patient has weight gain over 3lbs in one day or 5lbs over several days, they are aware to contact our office. With any severe or sustained symptoms, they are aware to contact EMS via 911 and go to the emergency room. Orders: carvediloL (COREG) 3.125 mg tablet; Take 1 tablet (3.125 mg total) by mouth 2 (two) times a day with meals. eplerenone (INSPRA) 50 mg tablet; Take 0.5 tablets (25 mg total) by mouth 1 (one) time each day. Basic metabolic panel; Future Assessment & Plan (05/17/2024 4:03 PM EST): [...] insufficiency of both lower extremities 1 05/22/2019 Overview (09/23/2024): April 2024 venous ultrasound showed no evidence of DVT left lower extremity Assessment & Plan (11/29/2024 10:52 AM EDT): Edema likely secondary to venous insufficiency. Continue with Entresto, eplerenone and HCTZ. Continue with compression stockings. Educated about reducing sodium intake, elevation of extremities while seated, weight loss and exercise. Assessment & Plan (09/23/2024 10:26 AM EDT): Edema likely secondary to venous insufficiency. Continue with Entresto and HCTZ. Restart eplerenone at lower dose. Continue with compression stockings. Educated about reducing sodium intake, elevation of extremities while seated, weight loss and exercise. 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 Irritable bowel syndrome 04/14/2018 Serrated polyp of colon 04/14/2018 BPH (benign prostatic hyperplasia) 09/15/2017 Osteoarthritis of both knees 05/21/2017 Overview (03/04/2024): Left knee arthroscopy for meniscal tears, spring 2016 Functional diarrhea 09/12/2016 Chronic pruritus 10/23/2015 Polymyalgia rheumatica ([facility] V24) 07/31/2015 Overview (03/04/2024): Onset 06/03-tapered off prednisone December 2019 Prednisone restarted March 2020 Assessment & Plan (05/17/2024 4:03 PM EST): Patient has responded favorably to long-term low-dose prednisone. Internal hemorrhoids with complication 6 Vitamin B 12 deficiency 08/26/2014 Obstructive sleep apnea 03/29/2014 Overview (03/04/2024): [facility] Home Polysomnogram: Date 02/13/2017; AHI 12, Unclassified apneas 2; Obstructive apneas 9; Central apneas 1; Mixed apneas 0; hypopneas 72; average oxygen saturation 95% (lowest 81% without saturations <88% for 5% or more of study) AHI improved from 13 to 11. Deferred using CPAP at our last visit together. CKD (chronic kidney disease) stage 3, GFR 30-59 ml/min ([facility] V24, [facility] V28) 10/28/2013 Overview (03/04/2024): GFR 53 on 08/18/12. Assessment & Plan (05/17/2024 4:03 PM EST): Renal insufficiency appears to be stable. No changes will be made to his regimen. Gout 08/18/2012 Hypertension 11/28/2011 Overview (03/04/2024): Hypertensive disorder Assessment & Plan (11/29/2024 10:52 AM EDT): Controlled. Continue with carvedilol, eplereone and Entresto. Assessment & Plan (09/23/2024 10:26 AM EDT): Controlled. Had issues with hypotension. Will restart eplerenone at lower dose to address fluid retention and hypokalemia, but will reduce carvedilol to account for recent low blood pressures. Continue with Entresto. Assessment & Plan (05/17/2024 4:03 PM EST): [...] Encounters Date Type Department Care Team Description 02/14/2025 7:35 PM EDT Ancillary Procedure [facility] [address] [place] [address] Arrived 11/29/2024 10:10 AM EDT Office Visit [facility] Cardiology [facility] [address] [place] [address] Fabien Bugros NP Other cardiomyopathy (CMS/HCC V24, CMS/HCC V28) (Primary Dx); Coronary artery disease involving [place] coronary artery of [place] heart without angina pectoris; Pacemaker; Primary hypertension; Venous insufficiency of both lower extremities 11/22/2024 6:00 AM EDT Ancillary Procedure [facility] Cardiology [facility] [address] [place] [address] from Last 3 Months Immunizations Immunization Administration Dates Next Due Influenza Quadravalent, 0.5m [...] Site/Laterality Comments OTHER SURGICAL HISTORY 2004 PROCEDURE: ME RMVL LUNG OTHER THAN PNEUMONECTOMY 1 LOBE LOBECT; COMMENT: LLL for Ca OTHER SURGICAL HISTORY 05/22/12 PROCEDURE: NUCLEAR STRESS TEST REPORT; COMMENT: Nerissa Villanueva, Neg OTHER SURGICAL HISTORY 01/30 PROCEDURE: OUTSIDE NUCLEAR STRESS TEST; COMMENT: neg OTHER SURGICAL HISTORY 01/30 PROCEDURE: CTA CHEST; W/WO CONTRAST MAT; COMMENT: neg COLONOSCOPY 06/29/04 PROCEDURE: HISTORICAL COLONOSCOPY; COMMENT: Nataly perry COLONOSCOPY 03/01 [facility] PROCEDURE: HISTORICAL COLONOSCOPY; COMMENT: devika Shipley; otherwise normal to terminal ileum with normal colonic bxys. UPPER GASTROINTESTINAL ENDOSCOPY 03/01 [facility] PROCEDURE: ME UPPER GI ENDOSCOPY PERFORMED; COMMENT: NOrmal, with normal duodenal biopsies UPPER GASTROINTESTINAL ENDOSCOPY 12/26/2010 PROCEDURE: ME UPPER GI ENDOSCOPY PERFORMED; COMMENT: Minimal erosive gastritis; [facility]; bx negative for H. pylori. KNEE SURGERY 2016 PROCEDURE: HISTORICAL KNEE SURGERY Medical History Medical History Date Comments BPH (benign prostatic hyperplasia) 09/15/2017 DX:BPH (benign prostatic hyperplasia) Chronic pruritus 10/23/2015 DX:Chronic prur itus Chronic rhinitis 03/22/2008 DX:Chronic rhin itis CKD (chronic kidney disease) stage 3, GFR 30-59 ml/min ([facility] V24, [facility] V28) 10/28/2013 DX:CKD (chronic kidney disea se) stage 3, GFR 30-59 ml/min ([facility]); COMMENT: GFR 53 on 08/18/12. Cystic [...] apnea 03/29/2014 DX:Obstr uctive sleep apnea; COMMENT: [facility] Home Polysomnogram: Date 02/13/2017; AHI [...] for meniscal tears, spring 2016 Polymyalgia rheumatica (CMS/HCC V24) 07/31/2015 DX:Polymyalgia rheumatica (HCC); COMMENT: Onset 06/03 [...] Sign Reading Time Taken Comments Blood Pressure 130/70 11/29/2024 9:32 AM EDT Pulse 60 11/29/2024 9:32 AM EDT Temperature - - Respiratory Rate - - Oxygen Saturation 96% 11/29/2024 9:32 AM EDT Inhaled Oxygen Concentration - - Weight 83.6 kg (184 lb 6.4 oz) 11/29/2024 9:32 A M EDT Height 167.6 cm (5' 6 ) 11/29/2024 9:32 AM EDT Body Mass Index 29.76 11/29/2024 9:32 AM EDT Plan of Treatment Upcoming Encounters Date Type Department Care Team (Late st Contact Info) Description 04/20/2025 8:00 AM EST Ancillary Procedure [facility] [address] [place] [address] Health Maintenance Due Date Last Done Comments Zoster Vaccines (1 of 2) 02/18/2014 12/24/2013 Falls Risk Assessment 04/25/2022 Social Influencers of Health Screening 04/25/2022 Medicare Annual Wellness Visit 10/23/2023 10/22/2022 Depression Screening 05/19/2024 Cholesterol Screening (Lipid Panel) 09/27/2024 09/28/2019 COVID-19 Vaccine ( season) 2025 04/15/2022, 04/23/2021, 07/23/2020, Additional history exists Influenza Vaccine (#1) 2025 , 07/21/2023, 04/15/2022, Additional history exists Hypertension/CHF/CAD Annual BMP Blood Test 12/06/2025 12/06/2024, 10/13/2024, 12/08/2023, Additional history exists DTaP,Tdap,and Td Vaccines (3 - Td or Tdap) 05/17/2026 05/17/2016, 11/29/2008 Pneumococcal Vaccine: 50+ Years Completed 11/02/2014, 06/07/2014, 09/16/2013, Additional history exists RSV Immunization Adult Patients Completed 02/19/2024 HIB Vaccines Aged Out No [...] age to complete this topic Meningococcal B Vaccine Aged Out No l onger eligible based on patient's age to complete this topic RSV Immunization Patients Under 20 months Aged Out No longer eligible based on patient's age to complete this topic Varicella Vaccines Aged Out No longer eligible based on patient's age to complete this topic Medical Devices Implanted Type Area Program Management Manager Device Identifier Shelf Expiration Date Model / Serial / Lot Bsci-Crm [id number] Implanted:02/16 (Quantity not on file) Cardiac HEAVY DUTY PRESS OPERATOR-P [employer] CARD RHYTHM MGMT [id number] / [id number] / Procedures Procedure Name Priority Date/Time Associated Diagnosis Comments CARDIAC DEVICE CHECK- REMOTE- MURJ Routine 02/14/2025 7:33 PM EDT CARDIAC DEVICE CHECK- REMOTE- MURJ Routine 11/22/2024 5:55 AM EDT BASIC METABOLIC PANEL Routine 10/13/2024 1:07 PM EDT Other cardiomyopathy (CMS/HCC V24, CMS/HCC V28) LIPID PANEL Routine 09/28/2019 from Last 3 Months or Most Recently Relevant to Health Maintenance Results * Cardiac device check - Remote- MURJ (02/14/2025 7:33 PM EDT) Only the most recent of2 resultswithin the time period is included. Date Time Interrogation Session [id number] CV DEVICE CHECK Type Interrogation Session Remote Scheduled CV DEVICE CHECK Implantable Pulse Generator Program Management Manager BSX CV DEVICE CHECK Implantable Pulse Generator Type HEAVY DUTY PRESS OPERATOR-P CV DEVICE CHECK Implantable Pulse Generator Model [id number] CV DEVICE CHECK Implantable Pulse Generator Serial Number [id number] CV DEVICE CHECK Implantable Pulse Generator Implant Date 20230305 CV DEVICE CHECK Battery Remaining Percentage 100.00 CV DEVICE CHECK Battery Remaining Longevity 108.0 CV DEVICE CHECK Battery Status Beginning of Service CV DEVICE CHECK Ayan Statistic RA Percent Paced 35.00 CV DEVICE CHECK Ayan Statistic RV Percent Paced 100.00 CV DEVICE CHECK HEAVY DUTY PRESS OPERATOR Statistic LV Percent Paced 100.00 CV DEVICE CHECK Atrial Tachy Statistic AT/AF [place] Percent 0.00 CV DEVICE CHECK Lead Channel [...] CV DEVICE CHECK Ventricular chambers paced during HEAVY DUTY PRESS OPERATOR pacing. BiV CV DEVICE CHECK Ayan Setting Lower Rate Limit 60 CV DEVICE CHECK Ayan Setting AT Mode Switch Rate 170 CV DEVICE CHECK Ayan Setting Maximum Tracking Rate 130 CV DEVICE CHECK Ayan Setting Maximum Sensor Rate 130 CV DEVICE CHECK Ayan Setting PAV Delay 150 CV DEVICE CHECK Ayan Setting SUZY Delay 100 CV DEVICE CHECK HEAVY DUTY PRESS OPERATOR LV-RV Delay 0 CV D EVICE [...] IMPLANTABLE CARDIAC DEV ICE PROCEDURES Final Result * (ABNORMAL) Lipid panel (09/28/2019) LDL/HDL Ratio 4 0 - 4 Triglycerides 290(A) 0 - 150 mg/dL Cholesterol 192 0 - 200 mg/dL HDL 51 >=40 mg/dL LDL Cholesterol 83 0 - 100 mg/dL Blood Venous blood specimen / Unknown Historical Provider LAB BLOOD ORDERABLES Frida l Result from Last 3 Months or Most Recently Relevant to Health Maintenance Insurance MEDICARE [facility] Care Teams Torque Tester Relationship Specialty Start Date End Date Aram Modi MD [address] [place] [id number] PCP - General 04/22/17
--- OUTSIDE RECORDS SUMMARY | 2025-02-16 09:06 | XMS_ITS | Encounter Summary ---
Author Organization [facility] Address [address] [place] [address] Care Team Providers Care Consumer Banker Name Role Phone Aram Modi MD Primary Care Provider Yanet Gilmore, Pcp Primary Care Provider Unavailabl Ravinder Salvador MD Unavailable [phone] Fabien Burgos NP Unavailable [phone] Aram Modi MD Primary Care Provider Unava Angelica Russell MD Unavailable [phone] Encounter Details Date Type Department Care Team Description 07/16/2019 Lithoduplicator Operator Report Medical Records [address] [place] [id number] [place], [place] [address] [place] [address] [id number] Social History Tobacco Use Types Packs/Day Years [...] on filedocumented in this encounter Care Teams Consumer Banker Relationship Specialty Start Date End Date Aram Modi MD PCP - General Internal Medicine 04/22/17 09/10/20 [facility], Pcp PCP - General Internal Medicine 09/11/20 02/17/23 Aram Modi MD PCP - General Internal Medicine 02/18/23 Ravinder Jose MD Specialist Cardiology 02/11/23 Fabien Burgos NP Specialist Cardiology 02/11/23 Angelica Price MD [address] [place] [address] Specialist Cardiology 03/11/23 documented as of this encounter
--- OUTSIDE RECORDS SUMMARY | 2025-02-16 09:06 | XMS_ITS | Encounter Summary ---
Author Organization [facility] Address [address] [place] [address] Care Team Providers Care Border Guard Name Role Phone Gael Coffman MD Primary Care Provider Unavail able Aram Modi MD Primary Care Provider Yanet Gilmore Pcp Primary Care Provider UnavailRavinder Wallace MD Unavailable aFbien Burgos NP Unavailable [phone] Aram Modi MD Primary Care Provider UnaAngelica Willard MD Unavailable [phone] Reason for Visit * Reason Onset Date Comments APPOINTMENT 06/14/2015 Encounter Details Date Type Department Care Team Description 06/14/2015 Telephone Physiatry - [address] [address] [place] Hamilton, DO APPOINTMENT Social History Tobacco [...] on filedocumented in this encounter Care Teams Border Guard Relationship Specialty Start Date End Date Gael Coffman MD PCP - General 06/10/01 04/21/17 Aram Modi MD PCP - General Internal Medicine 04/22/17 09/10/20 [facility] PCP - General Internal Medicine 09/11/20 02/17/23 Aram Modi MD PCP - General Internal Medicine 02/18/23 Ravinder Jose MD Specialist Cardiology 02/11/23 Fabien Burgos NP Specialist Cardiology 02/11/23 Angelica Price MD [address] [place] [address] Specialist Cardiology 03/11/23 documented as of this encounter
--- OUTSIDE RECORDS SUMMARY | 2025-02-16 09:06 | XMS_ITS | Encounter Summary ---
Author Organization [facility] Address [address] [place] [address] Care Team Providers Care Funeral Pre Arrangement Specialist Name Role Phone Gael Coffman MD Primary Care Provider Unavail able Aram Modi MD Primary Care Provider Yanet Gilmore Pcp Primary Care Provider UnavailRvainder Wallace MD Unavailable [phone] Fabien Burgos NP Unavailable [phone] Aram Modi MD Primary Care Provider Angelica Cardozo MD Unavailable [phone] Reason for Visit * Reason Onset Date Comments Advice 09/10/2015 Encounter Details Date Type Department Care Team Description 09/10/2015 Pt. Non Urgent Medical Question Adult Medicine - [employer] [address] [place] [address] Gael Coffman MD Social History Tobacco Use [...] the system. I will get them in [place] close to my home. Thank you, Shan Velez documented in this encounter Plan of Treatment Not on file documented as of this encounter Visit Diagnoses Not on filedocumented in this encounter Care Teams Funeral Pre Arrangement Specialist Relationship Specialty Start Date End Date Gael Coffman MD PCP - General 06/10/01 04/21/17 Aram Modi MD PCP - General Internal Medicine 04/22/17 09/10/20 [facility] PCP - General Internal Medicine 09/11/20 02/17/23 Aram Modi MD PCP - General Internal Medicine 02/18/23 Ravinder Jose MD Specialist Cardiology 02/11/23 Fabien Burgos NP Specialist Cardiology 02/11/23 Angelica Price MD [address] [place] [address] Specialist Cardiology 03/11/23 documented as of this encounter
--- OUTSIDE RECORDS SUMMARY | 2025-02-16 09:06 | XMS_ITS | Encounter Summary ---
Author Organization [facility] Address [address] [place] [address] Care Team Providers Care Visual Aid Expert Name Role Phone Gael Coffman MD Primary Care Provider Unavail able Aram Modi MD Primary Care Provider Yanet Gilmore Pcp Primary Care Provider UnavailRavinder Wallace MD Unavailable [phone] Fabien Burgos NP Unavailable [phone] Aram Modi MD Primary Care Provider Angelica Cardozo MD Unavailable [phone] Encounter Details Date Type Department Care Team Description 06/30/2012 Cardiology Procedure Cardiology - [address] [address] Social History Tobacco Use Types Packs/Day Years [...] filedocumented in this encounter Care Teams Visual Aid Expert Relationship Specialty Start Date End Date Gael Coffman MD PCP - General 06/10/01 04/21/17 Aram Modi MD PCP - General Internal Medicine 04/22/17 09/10/20 [facility] PCP - General Internal Medicine 09/11/20 02/17/23 Aram Modi MD PCP - General Internal Medicine 02/18/23 Ravinder Jose MD Specialist Cardiology 02/11/23 Fabien Burgos NP Specialist Cardiology 02/11/23 Angelica Price MD [address] [place] [address] Specialist Cardiology 03/11/23 documented as of this encounter
--- OUTSIDE RECORDS SUMMARY | 2025-02-16 09:06 | XMS_ITS | Encounter Summary ---
Author Organization [facility] Address [address] [place] [address] Phone Care Team Providers Care Composition Professor Name Role Phone Gael Coffman MD Primary Care Provider Unav ailable Aram Modi MD Primary Care Provider Aram Modi MD Primary Care Provider Aram Modi MD Unavailable Scott Souza MD Unavailable [phone] Alex Medina MD, MPH Unavailable Encounter Details Date Type Department Care Team (Late st Contact Info) Description 07/24/2020 Procedure Pass [facility] [address] [place] [address] Social History Tobacco Use Types Packs/Day Years [...] Description 02/17/2025 8:00 AM EDT Pre-Admission Testing [address] [address] Aixa Luciano MD [address] [place] [address], [address] [place] [address] [email or web address] 03/01/2025 Procedure Pass [address] [address] 03/01/2025 3:45 PM EDT Hospital Encounter [address] [address] Aixa Luciano MD [address] [place] [address], [address] [address] [email or web address] 03/01/2025 3:45 PM EDT - 03/01/2025 4:30 PM EDT Surgery [address] [address] Aixa Luciano MD [address] [place] [address], [address] [address] [email or web address] ENDOSCOPIC ULTRASOUND /FNA - growing cyst in head 05/18/2025 11:00 AM EST Telemedicine [facility] Medical Specialties [address] [place], [place] [address] [place] [address] Alex Medina MD, MPH [address] [place] [address], [facility] [place] [address] [email or web address] Scheduled Procedures Name Priority Associated Diagnoses Date/Ti me ENDOSCOPIC ULTRASOUND Cyst of pancreas 03/01/2025 3:45 PM EDT documented as of this encounter Visit Diagnoses Not on filedocumented in this encounter Care Teams Composition Professor Relationship Specialty Start Date End Date Gael Coffman MD PCP - General 09/23/14 01/17/22 Aram Modi MD [address] [place] [address] PCP - General Internal Medicine 01/18/22 01/14/23 Aram Modi MD [address] [place] [address] PCP - General 01/15/23 Aram Modi MD [address] [place] [address] Internal Medicine 01/15/23 Scott Souza MD [address] [place] [address] [email or web address] Medical Oncology 12/08/15 Alex Medina MD, MPH [address] [place] [address] [email or web address] Gastroenterology 11/23/20 documented as of this encounter Additional Source Comments The information contained in this document represents components of the legal health record. It is not the complete legal health record.[facility]
--- OUTSIDE RECORDS SUMMARY | 2025-02-16 09:06 | XMS_ITS | Encounter Summary ---
Author Organization [facility] Address [address] [place] [address] Care Team Providers Care Shower Room Attendant Name Role Phone Aram Modi MD Primary Care Provider Yanet Gilmore, Pcp Primary Care Provider [facility] Ravinder Salvador MD Unavailable [phone] Fabien Burgos NP Unavailable [phone] Aram Modi MD Primary Care Provider Angelica Cardozo MD Unavailable Encounter Details Date Type Department Care Team Description 06/28/2019 Oil Separator Report Medical Records [address] [place] [address] Ronaldo Thakur, PA-C Social History Tobacco Use [...] on filedocumented in this encounter Care Teams Shower Room Attendant Relationship Specialty Start Date End Date Aram Modi MD PCP - General Internal Medicine 04/22/17 09/10/20 [facility], Pcp PCP - General Internal Medicine 09/11/20 02/17/23 Aram Modi MD PCP - General Internal Medicine 02/18/23 Ravinder Jose MD Specialist Cardiology 02/11/23 Fabien Burgos NP Specialist Cardiology 02/11/23 Angelica Price MD [address] [address] Specialist Cardiology 03/11/23 documented as of this encounter
--- OUTSIDE RECORDS SUMMARY | 2025-02-16 09:06 | XMS_ITS | Encounter Summary ---
Author Organization [facility] Address [address] [place] [address] Care Team Providers Care Asphalt Still Operator Name Role Phone Gael Coffman MD Primary Care Provider Unavail able Aram Modi MD Primary Care Provider Yanet Gilmore Pcp Primary Care Provider UnavailRavinder Wallace MD Unavailable Fabien Burgos NP Unavailable [phone] Aram Modi MD Primary Care Provider Angelica Cardozo MD Unavailable [phone] Encounter Details Date Type Department Care Team Description 10/31/2016 Senior Physician Report Medical Records [address] [place] [address] Thony Powers, PA-C Social History Tobacco Use [...] on filedocumented in this encounter Care Teams Asphalt Still Operator Relationship Specialty Start Date End Date Gael Coffman MD PCP - General 06/10/01 04/21/17 Aram Modi MD PCP - General Internal Medicine 04/22/17 09/10/20 [facility], Pcp PCP - General Internal Medicine 09/11/20 02/17/23 Aram Mdoi MD PCP - General Internal Medicine 02/18/23 Ravinder Jose MD Specialist Cardiology 02/11/23 Fabien Burgos NP Specialist Cardiology 02/11/23 Angelica Price MD [address] [place] [address] Specialist Cardiology 03/11/23 documented as of this encounter
--- OUTSIDE RECORDS SUMMARY | 2025-02-16 09:06 | XMS_ITS | Encounter Summary ---
Author Organization [facility] Address [address] [place] [address] Phone Care Team Providers Care Dyed Raw Stock Blower Feeder Name Role Phone Gael Coffman MD Primary Care Provider Unav ailable Aram Modi MD Primary Care Provider Aram Modi MD Primary Care Provider Aram Modi MD Unavailable [phone] Scott Souza MD Unavailable [phone] Alex Medina MD, MPH Unavailable Encounter Details Date Type Department Care Team (Late st Contact Info) Description 12/17/2019 Procedure Pass [facility], [facility] [place], [place] [address] [facility], [address] [place] [address] Social History Tobacco Use Types [...] Description 02/17/2025 8:00 AM EDT Pre-Admission Testing [address] [address] Aixa Luciano MD [address] [place] [address], [address] [place] [address] [email or web address] 03/01/2025 Procedure Pass [address] [address] 03/01/2025 3:45 PM EDT Hospital Encounter [address] [address] Aixa Luciano MD [address] [place] [address], [address] [address] [email or web address] 03/01/2025 3:45 PM EDT - 03/01/2025 4:30 PM EDT Surgery [address] [address] Aixa Luciano MD [address] [place] [address], [address] [place] [address] [email or web address] ENDOSCOPIC ULTRASOUND /FNA - growing cyst in head 05/18/2025 11:00 AM EST Telemedicine [facility] [place] [address] Alex Medina MD, MPH [address] [place] [address], [facility] [place] [address] [email or web address] Scheduled Procedures Name Priority Associated Diagnoses Date/Ti me ENDOSCOPIC ULTRASOUND Cyst of pancreas 03/01/2025 3:45 PM EDT documented as of this encounter Visit Diagnoses Not on filedocumented in this encounter Care Teams Dyed Raw Stock Blower Feeder Relationship Specialty Start Date End Date Gael Coffman MD PCP - General 09/23/14 01/17/22 Aram Modi MD [facility] [address] PCP - General Internal Medicine 01/18/22 01/14/23 Aram Modi MD [facility] [address] PCP - General 01/15/23 Aram Modi MD [address] [place] [address] Internal Medicine 01/15/23 Scott Souza MD [address] [place] [address] [email or web address] Medical Oncology 12/08/15 Alex Medina MD, MPH [address] [place] [address] [email or web address] Gastroenterology 11/23/20 documented as of this encounter Additional Source Comments The information contained in this document represents components of the legal health record. It is not the complete legal health record.[facility]
--- OUTSIDE RECORDS SUMMARY | 2025-02-16 09:06 | XMS_ITS | Encounter Summary ---
Author Organization [facility] Address [address] [place] [address] Care Team Providers Care Bush Hog Operator Name Role Phone Gael Coffman MD Primary Care Provider Unavail able Aram Modi MD Primary Care Provider Yanet Gilmore Pcp Primary Care Provider UnavailRavinder Wallace MD Unavailable [phone] Fabien Burgos NP Unavailable Aram Modi MD Primary Care Provider Angelica Cardozo MD Unavailable [phone] Encounter Details Date Type Department Care Team Description 10/07/2016 Ambulatory Blood Pressure Monitoring Medical Records [address] [place] [address] Abstract, Provider Social History Tobacco Use Types [...] on filedocumented in this encounter Care Teams Bush Hog Operator Relationship Specialty Start Date End Date Gael Coffman MD PCP - General 06/10/01 04/21/17 Aram Modi MD PCP - General Internal Medicine 04/22/17 09/10/20 [facility], Pcp PCP - General Internal Medicine 09/11/20 02/17/23 Aram Modi MD PCP - General Internal Medicine 02/18/23 Ravinder Jose MD Specialist Cardiology 02/11/23 Fabien Burgos NP Specialist Cardiology 02/11/23 Angelica Price MD [address] [place] [address] Specialist Cardiology 03/11/23 documented as of this encounter
--- OUTSIDE RECORDS SUMMARY | 2025-02-16 09:06 | XMS_ITS | Encounter Summary ---
Author Organization [facility] Address [address] [place] [address] Care Team Providers Care Olive Picker Name Role Phone Aram Modi MD Primary Care Provider Unakuldeep Gilmore Pcp Primary Care Provider Unavailpullman [facility] Ravinder Salvador MD Unavailable [phone] Fabien Burgos NP Unavailable [phone] Aram Modi MD Primary Care Provider Unava Angelica Russell MD Unavailable [phone] Encounter Details Date Type Department Care Team Description 07/29/2019 Pt. Non Urgent Medic al Question Medicine/Pediatrics - [address] [address] Aram Modi MD Social History Tobacco Use [...] on filedocumented in this encounter Care Teams Olive Picker Relationship Specialty Start Date End Date Aram Modi MD PCP - General Internal Medicine 04/22/17 09/10/20 [facility] PCP - General Internal Medicine 09/11/20 02/17/23 Aram Modi MD PCP - General Internal Medicine 02/18/23 Ravinder Jose MD Specialist Cardiology 02/11/23 Fabien Burgos NP Specialist Cardiology 02/11/23 Angelica Price MD [address] [place] [address] Specialist Cardiology 03/11/23 documented as of this encounter
--- OUTSIDE RECORDS SUMMARY | 2025-02-16 09:06 | XMS_ITS | Encounter Summary ---
Author Organization [facility] Address [address] [place] [address] Care Team Providers Care Loan Documents Closer Name Role Phone Aram Modi MD Primary Care Provider Unakuldeep Gilmore Pcp Primary Care Provider Unavailuniversal health services Ravinder Salvador MD Unavailable [phone] Fabien Burgos NP Unavailable [phone] Aram Modi MD Primary Care Provider Unava Angelica Russell MD Unavailable [phone] Encounter Details Date Type Department Care Team Description 01/20/2019 Pt. Non Urgent Medical Question Rheumatology - [place] [address] [place] [address] Simon Garcia MD Polymyalgia rheumatica (HCC) Social [...] this regiment, please send a script to [facility]. Thanks and Best Regards, Shan Velez documented in this encounter Plan of Treatment Not on file documented as of this encounter Visit Diagnoses Diagnosis Polymyalgia rheumatica (HCC) Polymyalgia rheumatica documented in this encounter Care Teams Loan Documents Closer Relationship Specialty Start Date End Date Aram Modi MD PCP - General Internal Medicine 04/22/17 09/10/20 [facility] Pcp PCP - General Internal Medicine 09/11/20 02/17/23 Aram Modi MD PCP - General Internal Medicine 02/18/23 Ravinder Jose MD Specialist Cardiology 02/11/23 Fabien Burgos NP Specialist Cardiology 02/11/23 Angelica Price MD [address] [place] [address] Specialist Cardiology 03/11/23 documented as of this encounter
--- OUTSIDE RECORDS SUMMARY | 2025-02-16 09:06 | XMS_ITS | Encounter Summary ---
Author Organization [facility] Address [address] [place] [address] Care Team Providers Care Mobile Device Developer Name Role Phone Aram Modi MD Primary Care Provider Yanet Gilmore, Pcp Primary Care Provider [facility]ail[facility] Ravinder Salvador MD Unavailable [phone] Fabien Burgos NP Unavailable [phone] Aram Modi MD Primary Care Provider Citlalyri Angelica Russell MD Unavailable [phone] Encounter Details Date Type Department Care Team Description 12/22/2019 Telephone [facility] - [address] [address] Simon Garcia MD Social History Tobacco Use [...] filedocumented in this encounter Care Teams Mobile Device Developer Relationship Specialty Start Date End Date Aram Modi MD PCP - General Internal Medicine 04/22/17 09/10/20 [facility], Pcp PCP - General Internal Medicine 09/11/20 02/17/23 Aram Modi MD PCP - General Internal Medicine 02/18/23 Ravinder Jose MD Specialist Cardiology 02/11/23 Fabien Burgos NP Specialist Cardiology 02/11/23 Angelica Price MD 300 [facility] [address] [place] [address] Specialist Cardiology 03/11/23 documented as of this encounter
--- OUTSIDE RECORDS SUMMARY | 2025-02-16 09:06 | XMS_ITS | Clinical Summary ---
Author Organization [facility] Address [address] [address] Phone Care Team Providers Care Functional Director Name Role Phone Aram Modi MD Primary Care Provider [phone] Allergies Active Allergy Reactions Criticality Noted Date [...] Overview (04/09/2023): Done on 02/03/2023 at [facility] indications:CHF Multiple premature ventricular complexes 021 [...] sleep apnea 03/29/2014 04/09/20 23 Overview (04/09/2023): [facility] Home Polysomnogram: Date 02/13/2017; AHI 12, [...] insufficiency of leg 04/08/2023 04/08/2023 04/08/2023 Immunizations Immunization Administration Dates Next Due Influenza Split High [...] Visit [facility] [address] [phone] Abhishek Haynes MD [address] [id number] Health Maintenance Due Date Last Done Comments Influenza Vaccine (#1) 2025 2, 03/06/2021, 02/14/2020, Additional history exists Pneumococcal Vaccine: 50+ Years Completed 11/02/2014, 06/07/2014, 09/16/2013, Additional history exists Pneumococcal Vaccine: Peds (0 to 5 Years) and At-Risk Patients (6 to 49 Years) Discontinued 11/02/2014, 06/07/2014, 09/16/2013, Additional history exists Hepatitis B Vaccine Aged Out No longe r eligible based on patient's age to complete this topic Insurance Medicare [facility] Medicare [facility] Care Teams Functional Director Relationship Specialty Start Date End Date Aram Modi MD [address] [place] [address] PCP - General Internal Medicine 04/09/23
--- OUTSIDE RECORDS SUMMARY | 2025-02-16 09:06 | XMS_ITS | Encounter Summary ---
Author Organization [facility] Address [address] [place] [address] Care Team Providers Care Supervisor Treating And Pumping Name Role Phone Gael Coffman MD Primary Care Provider Unavail able Aram Modi MD Primary Care Provider Yanet Gilmore Pcp Primary Care Provider UnavailRavinder Wallace MD Unavailable [phone] Fabien Burgos NP Unavailable [phone] Aram Modi MD Primary Care Provider Angelica Cardozo MD Unavailable [phone] Encounter Details Date Type Department Care Team Description 07/17/2016 Pt. Non Urgent Medical Question Adult Medicine B - [place] [address] [place] [address] Gael Coffman MD Social History Tobacco Use [...] reached out to a company called [employer]. They will be sending you notice for [...] filedocumented in this encounter Care Teams Supervisor Treating And Pumping Relationship Specialty Start Date End Date Gael Coffman MD PCP - General 06/10/01 04/21/17 Aram Modi MD PCP - General Internal Medicine 04/22/17 09/10/20 [facility] PCP - General Internal Medicine 09/11/20 02/17/23 Aram Modi MD PCP - General Internal Medicine 02/18/23 Ravinder Jose MD Specialist Cardiology 02/11/23 Fabien Burgos NP Specialist Cardiology 02/11/23 Angelica Price MD [address] [place] [address] Specialist Cardiology 03/11/23 documented as of this encounter
--- OUTSIDE RECORDS SUMMARY | 2025-02-16 09:06 | XMS_ITS | Encounter Summary ---
Author Organization [facility] Address [address] [place] [address] Care Team Providers Care Internal Control Manager Name Role Phone Gael Coffman MD Primary Care Provider Unavail able Aram Modi MD Primary Care Provider Yanet Gilmore Pcp Primary Care Provider UnavailRavinder Wallace MD Unavailable [phone] Fabien Burgos NP Unavailable [phone] Aram Modi MD Primary Care Provider Angelica Cardozo MD Unavailable [phone] Encounter Details Date Type Department Care Team Description 06/24/2012 Pt. Non Urgent Medical Question Adult Medicine B - [place] [address] [place] [address] Gael Coffman MD Social History Tobacco Use [...] filedocumented in this encounter Care Teams Internal Control Manager Relationship Specialty Start Date End Date Gael Coffman MD PCP - General 06/10/01 04/21/17 Aram Modi MD PCP - General Internal Medicine 04/22/17 09/10/20 [facility] PCP - General Internal Medicine 09/11/20 02/17/23 Aram Modi MD PCP - General Internal Medicine 02/18/23 Ravinder Jose MD Specialist Cardiology 02/11/23 Fabien Burgos NP Specialist Cardiology 02/11/23 Angelica Price MD [address] [address] Specialist Cardiology 03/11/23 documented as of this encounter
--- OUTSIDE RECORDS SUMMARY | 2025-02-16 09:06 | XMS_ITS | Encounter Summary ---
Author Organization [facility] Address [address] [place] [address] Care Team Providers Care Central Sterile Technician Name Role Phone Aram Modi MD Primary Care Provider Unakuldeep Gilmore Pcp Primary Care Provider Unavailcapital medical center Ravinder Salvador MD Unavailable [phone] Fabien Burgos NP Unavailable [phone] Aram Modi MD Primary Care Provider Unava Angelica Russell MD Unavailable [phone] Encounter Details Date Type Department Care Team Description 04/12/2019 Pt. Non Urgent Medical Question Rheumatology - [place] [address] [place] [address] Simon Garcia MD Social History Tobacco Use [...] on filedocumented in this encounter Care Teams Central Sterile Technician Relationship Specialty Start Date End Date Aram Modi MD PCP - General Internal Medicine 04/22/17 09/10/20 [facility] Pcp PCP - General Internal Medicine 09/11/20 02/17/23 Aram Modi MD PCP - General Internal Medicine 02/18/23 Ravinder Jose MD Specialist Cardiology 02/11/23 Fabien Burgos NP Specialist Cardiology 02/11/23 Angelica Price MD [address] [place] [address] Specialist Cardiology 03/11/23 documented as of this encounter
--- OUTSIDE RECORDS SUMMARY | 2025-02-16 09:06 | XMS_ITS ---
Author Name [facility] Organization Unknown Care Team Organization Name Specialty Phone Email Start Date End Da te [facility] Aram Modi Primary Care 03/26/2022 01/05/2024
--- OUTSIDE RECORDS SUMMARY | 2025-02-16 09:06 | XMS_ITS | Encounter Summary ---
Author Organization [facility] Address [address] [place] [address] Care Team Providers Care Cnc Mill Programmer Name Role Phone Gael Coffman MD Primary Care Provider Unavail able Aram Modi MD Primary Care Provider Yanet Gilmore Pcp Primary Care Provider UnavailRavinder Wallace MD Unavailable [phone] Fabien Burgos NP Unavailable [phone] Aram Modi MD Primary Care Provider Angelica Cardozo MD Unavailable [phone] Reason for Visit * Reason Onset Date Comments Hypertension Clinic Orders 10/30/2016 Order s PENDING for review and signing. Encounter Details Date Type Department Care Team Description 10/30/2016 Telephone Hypertension - [place] [address] [place] [address] Felicitas Love, Pharm.D Hypertension Clinic Orders (Orders [...] BASIC METABOLIC PANEL (11/20/2016 11:35 AM EDT) [facility] GLUCOSE 106(H) 70 - 100 mg/dL 11/20/2016 3:32 PM EDT [facility] Comment: Reference range applicable to fasting specimens only Based on recommendations from the ADA and AACE, the fasting glucose reference range has been changed to 70-100 mg/dL. This change is effective October 02, 2009 BUN 14 5 - 25 mg/dL 11/20/2016 3:32 PM EDT [facility] CREAT 1.1 0.7 - 1.5 mg/dL 11/20/2016 3:32 PM T [facility] GFR > 60 >60 11/20/2016 3:32 PM EDT [facility] Comment: If patient is -Moroccan, multiply result by 1.21 Chronic Kidney Disease: [...] Gael Coffman MD LAB Performing Organization Address City/State/[facility] Co de Phone Number [facility] [address] [facility] documented in this encounter Visit Diagnoses Diagnosis Essential hypertension- Primary Unspecified essential hypertension documented in this encounter Care Teams Cnc Mill Programmer Relationship Specialty Start Date End Date Gael Coffman MD PCP - General 06/10/01 04/21/17 Aram Modi MD PCP - General Internal Medicine 04/22/17 09/10/20 [facility] PCP - General Internal Medicine 09/11/20 02/17/23 Aram Modi MD PCP - General Internal Medicine 02/18/23 Ravinder Jose MD Specialist Cardiology 02/11/23 Fabien Burgos NP Specialist Cardiology 02/11/23 Angelica Price MD 300 [facility] [address] [place] [address] Specialist Cardiology 03/11/23 documented as of this encounter
--- OUTSIDE RECORDS SUMMARY | 2025-02-16 09:06 | XMS_ITS | Encounter Summary ---
Author Organization [facility] Address [address] [place] [address] Care Team Providers Care Truck Shop Mechanic Name Role Phone Gael Coffman MD Primary Care Provider Unavail able Aram Modi MD Primary Care Provider Yanet Gilmore Pcp Primary Care Provider UnavailRavinder Wallace MD Unavailable [phone] Fabien Burgos NP Unavailable [phone] Aram Modi MD Primary Care Provider Angelica Cardozo MD Unavailable [phone] Encounter Details Date Type Department Care Team Description 10/17/2016 Greenkeeper Report Medical Records [address] [place] [address] Thony Powers, PA-C Social History Tobacco Use [...] filedocumented in this encounter Care Teams Truck Shop Mechanic Relationship Specialty Start Date End Date Gael Coffman MD PCP - General 06/10/01 04/21/17 Aram Modi MD PCP - General Internal Medicine 04/22/17 09/10/20 Community, Pcp PCP - General Internal Medicine 09/11/20 02/17/23 Aram Modi MD PCP - General Internal Medicine 02/18/23 Ravinder Jose MD Specialist Cardiology 02/11/23 Fabien Burgos NP Specialist Cardiology 02/11/23 Angelica Price MD [address] [place] [address] Specialist Cardiology 03/11/23 documented as of this encounter
--- OUTSIDE RECORDS SUMMARY | 2025-02-16 09:06 | XMS_ITS | Encounter Summary ---
Author Organization [facility] Address [address] [place] [address] Care Team Providers Care Technical Support Internship Name Role Phone Aram Modi MD Primary Care Provider Yanet Gilmore Pcp Primary Care Provider UnavailRavinder Wallace MD Unavailable [phone] Fabine Burgos NP Unavailable [phone] Aram Modi MD Primary Care Provider Angelica Cardozo MD Unavailable [phone] Encounter Details Date Type Department Care Team Description 12/04/2018 Acquisitions Assistant Report Medical Records [address] [place] [address] Abstract, Provider Social History Tobacco Use Types [...] filedocumented in this encounter Care Teams Technical Support Internship Relationship Specialty Start Date End Date Aram Modi MD PCP - General Internal Medicine 04/22/17 09/10/20 [facility], Pcp PCP - General Internal Medicine 09/11/20 02/17/23 Aram Modi MD PCP - General Internal Medicine 02/18/23 Ravinder Jose MD Specialist Cardiology 02/11/23 Fabien Burgos NP Specialist Cardiology 02/11/23 Angelica Price MD [address] [address] Specialist Cardiology 03/11/23 documented as of this encounter
--- OUTSIDE RECORDS SUMMARY | 2025-02-16 09:06 | XMS_ITS | Encounter Summary ---
Author Organization [facility] Address [address] [place] [address] Care Team Providers Care Chef Concierge Name Role Phone Gael Coffman MD Primary Care Provider Unavail able Aram Modi MD Primary Care Provider Yanet Gilmore Pcp Primary Care Provider UnavailRavinder Wallace MD Unavailable [phone] Fabien Burgos NP Unavailable [phone] Aram Modi MD Primary Care Provider Angelica Cardozo MD Unavailable [phone] Encounter Details Date Type Department Care Team Description 07/06/2015 [facility] Medical Records [address] [place] [address] Social History Tobacco Use Types Packs/Day Years [...] on filedocumented in this encounter Care Teams Chef Concierge Relationship Specialty Start Date End Date Gael Coffman MD PCP - General 06/10/01 04/21/17 Aram Modi MD PCP - General Internal Medicine 04/22/17 09/10/20 [facility], Pcp PCP - General Internal Medicine 09/11/20 02/17/23 Aram Modi MD PCP - General Internal Medicine 02/18/23 Ravinder Jose MD Specialist Cardiology 02/11/23 Fabien Burgos NP Specialist Cardiology 02/11/23 Angelica Price MD [address] [place] [address] Specialist Cardiology 03/11/23 documented as of this encounter
--- OUTSIDE RECORDS SUMMARY | 2025-02-16 09:06 | XMS_ITS | Encounter Summary ---
Author Organization [facility] Address [address] [place] [address] Care Team Providers Care Hog Ringer Name Role Phone Community, Pcp Primary Care Provider Unavailcynthia e Ravinder Jose MD Unavailable [phone] Fabien Burgos NP Unavailable [phone] Aram Modi MD Primary Care Provider Angelica Cardozo MD Unavailable [phone] Encounter Details Date Type Department Care Team Description 01/30/2023 [facility] Medical Records [address] [place] [address] Social History Tobacco Use Types Packs/Day Years [...] on filedocumented in this encounter Care Teams Hog Ringer Relationship Specialty Start Date End Date Community, Pcp PCP - General Internal Medicine 09/11/20 02/17/23 Aram Modi MD PCP - General Internal Medicine 02/18/23 Ravinder Jose MD Specialist Cardiology 02/11/23 Fabien Burgos NP Specialist Cardiology 02/11/23 Angelica Price MD 300 [facility] [address] [place] [address] Specialist Cardiology 03/11/23 documented as of this encounter
--- OUTSIDE RECORDS SUMMARY | 2025-02-16 09:06 | XMS_ITS | Encounter Summary ---
Author Organization [facility] Address [address] [place] [address] Care Team Providers Care Truck Bench Mechanic Name Role Phone Gael Coffman MD Primary Care Provider Unavail able Aram Modi MD Primary Care Provider Yanet Gilmore Pcp Primary Care Provider UnavailRavinder Wallace MD Unavailable [phone] Fabien Burgos NP Unavailable [phone] Aram Modi MD Primary Care Provider Angelica Cardozo MD Unavailable [phone] Encounter Details Date Type Department Care Team Description 06/30/2015 [facility] Medical Records [address] [place] [address] Reilly Gaffney MD Social History Tobacco Use [...] filedocumented in this encounter Care Teams Truck Bench Mechanic Relationship Specialty Start Date End Date Gael Coffman MD PCP - General 06/10/01 04/21/17 Aram Modi MD PCP - General Internal Medicine 04/22/17 09/10/20 [facility], Pcp PCP - General Internal Medicine 09/11/20 02/17/23 Aram Modi MD PCP - General Internal Medicine 02/18/23 Ravinder Jose MD Specialist Cardiology 02/11/23 Fabien Burgos NP Specialist Cardiology 02/11/23 Angelica Price MD [address] [place] [address] Specialist Cardiology 03/11/23 documented as of this encounter
--- OUTSIDE RECORDS SUMMARY | 2025-02-16 09:06 | XMS_ITS | Encounter Summary ---
Author Organization [facility] Address [address] [place] [address] Phone Care Team Providers Care Speech Scientist Name Role Phone Gael Coffman MD Primary Care Provider Unav ailable Aram Modi MD Primary Care Provider Aram Modi MD Primary Care Provider Aram Modi MD Unavailable Scott Souza MD Unavailable Alex Medina MD, MPH Unavailable Encounter Details Date Type Department Care Team (Late st Contact Info) Description 07/26/2021 Procedure Pass [facility] [address] [place] [address] Social History Tobacco Use Types [...] Description 02/17/2025 8:00 AM EDT Pre-Admission Testing [address] [address] Aixa Luciano MD [address] [place] [address], [address] [place] [address] [email or web address] 03/01/2025 Procedure Pass [address] [address] 03/01/2025 3:45 PM EDT Hospital Encounter [address] [address] Aixa Luciano MD [address] [place] [address], [address] [address] [email or web address] 03/01/2025 3:45 PM EDT - 03/01/2025 4:30 PM EDT Surgery [address] [address] Aixa Luciano MD [address] [place] [address], [address] [address] [email or web address] ENDOSCOPIC ULTRASOUND /FNA - growing cyst in head 05/18/2025 11:00 AM EST Telemedicine [facility] Medical Specialties [address] [place], [place] [address]-2 [place] [address] Alex Medina MD, MPH [address] [place] [address], [facility] [address] [email or web address] Scheduled Procedures Name Priority Associated Diagnoses Date/Ti me ENDOSCOPIC ULTRASOUND Cyst of pancreas 03/01/2025 3:45 PM EDT documented as of this encounter Visit Diagnoses Not on filedocumented in this encounter Care Teams Speech Scientist Relationship Specialty Start Date End Date Gael Coffman MD PCP - General 09/23/14 01/17/22 Aram Modi MD [address] [place] [address] PCP - General Internal Medicine 01/18/22 01/14/23 Aram Modi MD [address] [place] [address] PCP - General 01/15/23 Aram Modi MD [address] [place] [address] Internal Medicine 01/15/23 Scott Souza MD [address] [place] [address] [email or web address] Medical Oncology 12/08/15 Alex Medina MD, MPH [address] [place] [address] [email or web address] Gastroenterology 11/23/20 documented as of this encounter Additional Source Comments The information contained in this document represents components of the legal health record. It is not the complete legal health record.[facility]
--- OUTSIDE RECORDS SUMMARY | 2025-02-16 09:07 | XMS_ITS | Encounter Summary ---
Author Organization [facility] Address [address] [place] [address] Care Team Providers Care Customer Equipment Engineer Name Role Phone Gael Coffman MD Primary Care Provider Unavail able Aram Modi MD Primary Care Provider Yanet Gilmore Pcp Primary Care Provider UnavailRavinder Wallace MD Unavailable [phone] Fabien Burgos NP Unavailable [phone] Aram Modi MD Primary Care Provider Angelica Cardozo MD Unavailable Encounter Details Date Type Department Care Team Description 12/19/2011 Release of Information Medical Records [address] [place] [address] Abstract, Provider Social History Tobacco Use Types [...] on filedocumented in this encounter Care Teams Customer Equipment Engineer Relationship Specialty Start Date End Date Gael Coffman MD PCP - General 06/10/01 04/21/17 Aram Modi MD PCP - General Internal Medicine 04/22/17 09/10/20 [facility], Pcp PCP - General Internal Medicine 09/11/20 02/17/23 Aram Modi MD PCP - General Internal Medicine 02/18/23 Ravinder Jose MD Specialist Cardiology 02/11/23 Fabien Burgos NP Specialist Cardiology 02/11/23 Angelica Price MD [address] [place] [address] Specialist Cardiology 03/11/23 documented as of this encounter
--- OUTSIDE RECORDS SUMMARY | 2025-02-16 09:07 | XMS_ITS | Encounter Summary ---
Author Organization [facility] Address [address] [place] [address] Care Team Providers Care Import Coordinator Name Role Phone Gael Coffman MD Primary Care Provider Unavail able Aram Modi MD Primary Care Provider Yanet Gilmore Pcp Primary Care Provider UnavailRavinder Wallace MD Unavailable [phone] Fabien Burgos NP Unavailable [phone] Aram Modi MD Primary Care Provider Angelica Cardozo MD Unavailable [phone] Encounter Details Date Type Department Care Team Description 02/14/2016 Fingernail Sculpturer Report Medical Records [address] [place] [address] Nakia Schwartz MD [address] [place] [address] [address] [place] [address] Social History Tobacco Use Types Packs/Day Years [...] on filedocumented in this encounter Care Teams Import Coordinator Relationship Specialty Start Date End Date Gael Coffman MD PCP - General 06/10/01 04/21/17 Aram Modi MD PCP - General Internal Medicine 04/22/17 09/10/20 [facility], Pcp PCP - General Internal Medicine 09/11/20 02/17/23 Aram Modi MD PCP - General Internal Medicine 02/18/23 Ravinder Jose MD Specialist Cardiology 02/11/23 Fabien Burgos NP Specialist Cardiology 02/11/23 Angelica Price MD [address] [place] [address] Specialist Cardiology 03/11/23 documented as of this encounter
--- OUTSIDE RECORDS SUMMARY | 2025-02-16 09:07 | XMS_ITS | Encounter Summary ---
Author Organization [facility] Address [address] [place] [address] Care Team Providers Care Sales Service Supervisor Name Role Phone Gael Coffman MD Primary Care Provider Unavail able Aram Modi MD Primary Care Provider Yanet Gilmore Pcp Primary Care Provider UnavailRavinder Wallace MD Unavailable [phone] Fabien Burgos NP Unavailable [phone] Aram Modi MD Primary Care Provider Angelica Cardozo MD Unavailable Encounter Details Date Type Department Care Team Description 02/06/2011 [facility] Medical Records [address] [place] [address] Trupti Britton Social History Tobacco Use Types [...] filedocumented in this encounter Care Teams Sales Service Supervisor Relationship Specialty Start Date End Date Gael Coffman MD PCP - General 06/10/01 04/21/17 Aram Modi MD PCP - General Internal Medicine 04/22/17 09/10/20 [facility], Pcp PCP - General Internal Medicine 09/11/20 02/17/23 Aram Modi MD PCP - General Internal Medicine 02/18/23 Ravinder Jose MD Specialist Cardiology 02/11/23 Fabien Burgos NP Specialist Cardiology 02/11/23 Aneglica Price MD [address] [place] [address] Specialist Cardiology 03/11/23 documented as of this encounter
--- OUTSIDE RECORDS SUMMARY | 2025-02-16 09:07 | XMS_ITS | Encounter Summary ---
Author Organization [facility] Address [address] [place] [address] Care Team Providers Care Art Dealer Name Role Phone Gael Coffman MD Primary Care Provider Unavail able Aram Modi MD Primary Care Provider Yanet Gilmore Pcp Primary Care Provider UnavailRavinder Wallace MD Unavailable [phone] Fabien Burgos NP Unavailable [phone] Aram Modi MD Primary Care Provider Angelica Cardozo MD Unavailable Encounter Details Date Type Department Care Team Description 09/07/2010 Waste Chopper Report Medical Records [address] [place] [address] Ricky Douglas Social History Tobacco Use Types [...] on filedocumented in this encounter Care Teams Art Dealer Relationship Specialty Start Date End Date Gael Coffman MD PCP - General 06/10/01 04/21/17 Aram Modi MD PCP - General Internal Medicine 04/22/17 09/10/20 [facility], Pcp PCP - General Internal Medicine 09/11/20 02/17/23 Aram Modi MD PCP - General Internal Medicine 02/18/23 Ravinder Jose MD Specialist Cardiology 02/11/23 Fabien Burgos NP Specialist Cardiology 02/11/23 Angelica Price MD [address] [place] [address] Specialist Cardiology 03/11/23 documented as of this encounter
--- OUTSIDE RECORDS SUMMARY | 2025-02-16 09:07 | XMS_ITS | Encounter Summary ---
Author Organization [facility] Address [address] [place] [address] Care Team Providers Care Ferryboat Operator Helper Name Role Phone Gael Coffman MD Primary Care Provider Unavail able Aram Modi MD Primary Care Provider Yanet Gilmore Pcp Primary Care Provider UnavailRavinder Wallace MD Unavailable [phone] Fabien Burgos NP Unavailable [phone] Aram Modi MD Primary Care Provider Angelica Cardozo MD Unavailable [phone] Encounter Details Date Type Department Care Team Description 11/22/2010 Environmental Programs Specialist Report Medical Records [address] [place] [address] Scott Souza Social History Tobacco Use Types [...] on filedocumented in this encounter Care Teams Ferryboat Operator Helper Relationship Specialty Start Date End Date Gael Coffman MD PCP - General 06/10/01 04/21/17 Aram Modi MD PCP - General Internal Medicine 04/22/17 09/10/20 Community, Pcp PCP - General Internal Medicine 09/11/20 02/17/23 Aram Modi MD PCP - General Internal Medicine 02/18/23 Ravinder Jose MD Specialist Cardiology 02/11/23 Fabien Burgos NP Specialist Cardiology 02/11/23 Angelica Price MD [address] [place] [address] Specialist Cardiology 03/11/23 documented as of this encounter
--- OUTSIDE RECORDS SUMMARY | 2025-02-16 09:07 | XMS_ITS | Encounter Summary ---
Author Organization [facility] Address [address] [place] [address] Care Team Providers Care Scraper Meat Name Role Phone Gael Coffman MD Primary Care Provider Unavail able Aram Modi MD Primary Care Provider Yanet Gilmore Pcp Primary Care Provider UnavailRavinder Wallace MD Unavailable [phone] Fabien Burgos NP Unavailable [phone] Aram Modi MD Primary Care Provider Angelica Cardozo MD Unavailable [phone] Encounter Details Date Type Department Care Team Description 03/21/2016 Tissue Specialist Report Medical Records [address] [place] [address] Reilly Gaffney MD Social History Tobacco Use [...] on filedocumented in this encounter Care Teams Scraper Meat Relationship Specialty Start Date End Date Gael Coffman MD PCP - General 06/10/01 04/21/17 Aram Modi MD PCP - General Internal Medicine 04/22/17 09/10/20 Community, Pcp PCP - General Internal Medicine 09/11/20 02/17/23 Aram Modi MD PCP - General Internal Medicine 02/18/23 Ravinder Jose MD Specialist Cardiology 02/11/23 Fabien Burgos NP Specialist Cardiology 02/11/23 Angelica Price MD [address] [place] [address] Specialist Cardiology 03/11/23 documented as of this encounter
--- OUTSIDE RECORDS SUMMARY | 2025-02-16 09:07 | XMS_ITS | Encounter Summary ---
Author Organization [facility] Address [address] [place] [address] Care Team Providers Care Warehouse Traffic Supervisor Name Role Phone Gael Coffman MD Primary Care Provider Unavail able Aram Modi MD Primary Care Provider Yanet Gilmore Pcp Primary Care Provider UnavailRavinder Wallace MD Unavailable Fabien Burgos NP Unavailable [phone] Aram Modi MD Primary Care Provider Angelica Cardozo MD Unavailable [phone] Encounter Details Date Type Department Care Team Description 12/03/2011 Canine Deputy Report Medical Records [address] [place] [address] Reilly Gaffney MD Social History Tobacco Use [...] on filedocumented in this encounter Care Teams Warehouse Traffic Supervisor Relationship Specialty Start Date End Date Gael Coffman MD PCP - General 06/10/01 04/21/17 Aram Modi MD PCP - General Internal Medicine 04/22/17 09/10/20 [facility], Pcp PCP - General Internal Medicine 09/11/20 02/17/23 Aram Modi MD PCP - General Internal Medicine 02/18/23 Ravinder Jose MD Specialist Cardiology 02/11/23 Fabien Burgos NP Specialist Cardiology 02/11/23 Angelica Price MD [address] [place] [address] Specialist Cardiology 03/11/23 documented as of this encounter
--- OUTSIDE RECORDS SUMMARY | 2025-02-16 09:07 | XMS_ITS | Encounter Summary ---
Author Organization [facility] Address [address] [place] [address] Phone Care Team Providers Care Customer Care Specialist Name Role Phone Gael Coffman MD Primary Care Provider Unav ailable Aram Modi MD Primary Care Provider Aram Modi MD Primary Care Provider Aram Modi MD Unavailable Scott Souza MD Unavailable Alex Medina MD, MPH Unavailable Encounter Details Date Type Department Care Team (Late st Contact Info) Description 11/17/2019 Procedure Pass [facility], [facility] [place] [address] [facility], Floor [address] [place] [address] Social History Tobacco Use Types [...] Description 02/17/2025 8:00 AM EDT Pre-Admission Testing [address] [address] Aixa Luciano MD [address] [place] [address], [address] [place] [address] [email or web address] 03/01/2025 Procedure Pass [address] [address] 03/01/2025 3:45 PM EDT Hospital Encounter [address] [address] Aixa Luciano MD [address] [place] [address], [address] [address] [email or web address] 03/01/2025 3:45 PM EDT - 03/01/2025 4:30 PM EDT Surgery [address] [address] Aixa Luciano MD [address] [place] [address], [address] [place] [address] [email or web address] ENDOSCOPIC ULTRASOUND /FNA - growing cyst in head 05/18/2025 11:00 AM EST Telemedicine [facility] [address] [facility]-[address] [place] [address] Alex Medina MD, MPH [address] [place] [address], [facility] [place] [address] [email or web address] Scheduled Procedures Name Priority Associated Diagnoses Date/Ti me ENDOSCOPIC ULTRASOUND Cyst of pancreas 03/01/2025 3:45 PM EDT documented as of this encounter Visit Diagnoses Not on filedocumented in this encounter Care Teams Customer Care Specialist Relationship Specialty Start Date End Date Gael Coffman MD PCP - General 09/23/14 01/17/22 Aram Modi MD [facility] [address] PCP - General Internal Medicine 01/18/22 01/14/23 Aram Modi MD [facility] [address] PCP - General 01/15/23 Aram Modi MD [address] [place] [address] Internal Medicine 01/15/23 Scott Souza MD [address] [place] [address] [email or web address] Medical Oncology 12/08/15 Alex Medina MD, MPH [address] [place] [address] [email or web address] Gastroenterology 11/23/20 documented as of this encounter Additional Source Comments The information contained in this document represents components of the legal health record. It is not the complete legal health record.[facility]
--- OUTSIDE RECORDS SUMMARY | 2025-02-16 09:07 | XMS_ITS | Encounter Summary ---
Author Organization [facility] Address [address] [place] [address] Care Team Providers Care Product Analyst Name Role Phone Gael Coffman MD Primary Care Provider Unavail able Aram Modi MD Primary Care Provider Yanet lopez [facility] Pcp Primary Care [facility] Ravinder Salvador MD Unavailable [phone] Fabien Burgos NP Unavailable [phone] Aram Modi MD Primary Care Provider Angelica Cardozo MD Unavailable [phone] Reason for Referral * Non JOSH (Routine) - Closed Specialty Diagnoses / Procedures Referred By Contac t Referred To Contact Rheumatology Procedures REFERRAL TO RHEUMATOLOGY Gael Coffman MD [address] [place] [address] Simon Garcia MD [address] [place] [address] Referral ID Status Reason Start Date Expiration Date Visits Re quested Visits Authorized [id number] Closed 07/25/2015 07/24/2016 1 1 Encounter Details Date Type Department Care Team Description 07/24/2015 Pt. Non Urgent Medical Question Adult Medicine B - [address] [address] Gael Coffman MD Pain (Primary Dx) Social [...] I might get an appointment with a School Age Teacher. I have seen Dr. Benitez in the [...] 35 years ago I was diagnosed at [facility] with fibromyalgia. For many years I [...] Ibuprofen four times a day. Thank you, Shna Velez documented in this encounter Plan of Treatment Not on file documented as of this encounter Visit Diagnoses Diagnosis Pain- Primary Generalized pain documented in this encounter Care Teams Product Analyst Relationship Specialty Start Date End Date Gael Coffman MD PCP - General 06/10/01 04/21/17 Aram Modi MD PCP - General Internal Medicine 04/22/17 09/10/20 [facility], Pcp PCP - General Internal Medicine 09/11/20 02/17/23 Aram Modi MD PCP - General Internal Medicine 02/18/23 Ravinder Jose MD Specialist Cardiology 02/11/23 Fabien Burgos NP Specialist Cardiology 02/11/23 Angelica Price MD [address] [place] [address] Specialist Cardiology 03/11/23 documented as of this encounter
--- OUTSIDE RECORDS SUMMARY | 2025-02-16 09:07 | XMS_ITS | Clinical Summary ---
Author Organization [facility] Address [address] [place] [address] Care Team Providers Care Screening Nurse Name Role Phone Ravinedr Jose MD Unavailable [phone] Fabien Burgos NP Unavailable [phone] Aram Modi MD Primary Care Provider Angelica Cardozo MD Unavailable [phone] Allergies Active Allergy Reactions Severity Noted Date Comments Morphine Sulfate-Nacl 08/06/2005 CONVULSIONS Medications Medication Sig Dispensed Refills Start Date End Date Status tamsulosin (FLOMAX) 0.4 MG 24 hr capsuleIndications:Be nign prostatic hyperplasia, unspecified whether lower urinary tract [...] daily. 0 Active furosemide (LASIX) 40 MG tabletIndications:Car diomyopathy, unspecified type (HCC) Take 1 Tablet by mouth daily for 360 days. 90 Tablet 3 11/05/2023 Active allopurinol (ZYLOPRIM) 100 MG tablet Take 1.5 Tablets by mouth daily. 0 Active carvedilol (COREG) 6.25 MG tablet Take 1 Tablet by mouth 2 times daily (with meals). 180 Tablet 1 02/04/2024 Active Sacubitril-Valsartan 49-51 MG Tab Take 49-51 mg by mouth 2 times daily. 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 02/18/2023 History of cardiac catheterization 02/17 Overview: Done on 02/03/2023 at [facility] indications:CHF Chest pain 02/17/2023 Cardiomyopathy 02/17/2023 [...] of lung cancer 12/08/2015 Overview: NSC, s/p lobectomy,Chema; Maria Guadalupe; 07/21;left lower lobe Follows [facility] [place] once a year Chronic pruritus 10/23/2015 Polymyalgia rheumatica 07/31/2015 Overview: Onset 06/03-tapered off prednisone December 2019 Prednisone restarted March 2020 Internal hemorrhoids with complication 0 05/22/2015 Vitamin B 12 deficiency 08/26/2014 Obstructive sleep apnea - mild AHI 12 Overview: [facility] Polysomnogram: Date 02/13/2017; AHI 12, Unclassified [...] Hx Diabetes Negative Hx Hypertension Negative Hx MS Negative Hx Mental Disorder Negative Hx Sleep [...] 62 12/01/2023 3:27 PM EDT Temperature 36.4 C (97.5 F) 07/25/2020 9:09 AM EST Respiratory Rate 12 05/08/2021 9:13 AM EST [...] 04/06/2019, 03/31/2018, 01/14/2017 (Completed), Additional history exists BMI CHECK/ADVISE 05/19/2024 12/01/2023, , 02/18/2023, Additional history exists CHOLESTEROL SCREENING 09/27/2024 09/28/2019 , 04/07/2019, 04/28/2017, Additional history exists Covid-19 Vaccine (4 - 2022-2 4 season) 2025 04/23/2021, 07/23/2020, 06/25/2020 INFLUENZA (#1) 2025 02/14/2020, 02/17, 02/17/2019, Additional history exists DTAP/TDAP/TD (2 - Td or Tdap) 05/17/2026 05/17/2016, 11/29/2008 PNEUMOCOCCAL VACCINE Completed 11/02/2014, 09/16/2013, 01/15/2002 Insurance Payer Benefit Plan / Group Subscriber ID Effective Dates Phone Address Type MEDICARE-M A CH/PT/MEDICA RE/$0 [id number] 2005-Pres ent [address] [place] [address] MEDICARE [id number] [place]/PPO POS CH/MEDEX/F/M EDSUP [id number] 2005-Pres ent MEDEX CLAIMS [address] [place] [address] MEDICARE SUPPLEMENTAL MEDICARE-M A CH/PT/MEDICA RE/$0 [id number] 2005-Pres ent [address] [place] [address] MEDICARE [id number] MEDICARE-M A MEDICARE-[place] [id number] 2005-Pres ent [address] [place] [phone] MEDICARE [id number] [place] [id number] 2005-Pres ent [address] [place] [address] MEDICARE [id number] MEDICARE-M A MEDIC[place] [id number] 2005-Pres ent [address] [place] [phone] MEDICARE [id number] [place] [id number] 2006-Pre sent [address] [place] [address] MEDICARE [id number] Care Teams Screening Nurse Relationship Specialty Start Date End Date Aram Modi MD PCP - General Internal Medicine 02/18/23 Ravinder Jose MD Specialist Cardiology 02/11/23 Fabien Burgos NP Specialist Cardiology 02/11/23 Angelica Price MD [address] [facility] [address] [place] [address] Specialist Cardiology 03/11/23
--- OUTSIDE RECORDS SUMMARY | 2025-02-16 09:07 | XMS_ITS | Encounter Summary ---
Author Organization [facility] Address [address] [place] [address] Care Team Providers Care Maintenance Manager Name Role Phone Gael Coffman MD Primary Care Provider Unavail able Aram Modi MD Primary Care Provider Yanet Gilmore Pcp Primary Care Provider UnavailRavinder Wallace MD Unavailable [phone] Fabien Burgos NP Unavailable Aram Modi MD Primary Care Provider Angelica Cardozo MD Unavailable [phone] Encounter Details Date Type Department Care Team Description 12/25/2010 [facility] Medical Records [address] [place] [address] Sascha Keller MD Social History Tobacco Use [...] on filedocumented in this encounter Care Teams Maintenance Manager Relationship Specialty Start Date End Date Gael Coffman MD PCP - General 06/10/01 04/21/17 Aram Modi MD PCP - General Internal Medicine 04/22/17 09/10/20 [facility], Pcp PCP - General Internal Medicine 09/11/20 02/17/23 Aram Modi MD PCP - General Internal Medicine 02/18/23 Ravinder Jose MD Specialist Cardiology 02/11/23 Fabien Burgos NP Specialist Cardiology 02/11/23 Angelica Price MD [address] [place] [address] Specialist Cardiology 03/11/23 documented as of this encounter
--- OUTSIDE RECORDS SUMMARY | 2025-02-16 09:07 | XMS_ITS | Encounter Summary ---
Author Organization [facility] Address [address] [place] [address] Care Team Providers Care Vascular Technologist Sonographer Name Role Phone Gael Coffman MD Primary Care Provider Unavail able Aram Modi MD Primary Care Provider Yanet Gilmore Pcp Primary Care Provider UnavailRavinder Wallace MD Unavailable Fabien Burgos NP Unavailable [phone] Aram Modi MD Primary Care Provider Angelica Cardozo MD Unavailable [phone] Encounter Details Date Type Department Care Team Description 11/28/2011 [facility] Mixer Report Medical Records [address] [place] [address] Scott Souza Social History Tobacco Use Types [...] on filedocumented in this encounter Care Teams Vascular Technologist Sonographer Relationship Specialty Start Date End Date Gael Coffman MD PCP - General 06/10/01 04/21/17 Aram Modi MD PCP - General Internal Medicine 04/22/17 09/10/20 [facility], Pcp PCP - General Internal Medicine 09/11/20 02/17/23 Aram Modi MD PCP - General Internal Medicine 02/18/23 Ravinder Jose MD Specialist Cardiology 02/11/23 Fabien Burgos NP Specialist Cardiology 02/11/23 Angelica Price MD [address] [place] [address] Specialist Cardiology 03/11/23 documented as of this encounter
--- OUTSIDE RECORDS SUMMARY | 2025-02-16 09:07 | XMS_ITS | Encounter Summary ---
Author Organization [facility] Address [address] [place] [address] Care Team Providers Care Cardiac Cath Tech Name Role Phone Ravinder Jose MD Unavailable [phone] Fabien Burgos NP Unavailable Aram Modi MD Primary Care Provider Angelica Cardozo MD Unavailable [phone] Encounter Details Date Type Department Care Team Description 02/16/2024 [facility] Medical Records [address] [place] [address] Abstract, Provider Social History Tobacco Use Types [...] on filedocumented in this encounter Care Teams Cardiac Cath Tech Relationship Specialty Start Date End Date Aram Modi MD PCP - General Internal Medicine 02/18/23 Ravinder Jose MD Specialist Cardiology 02/11/23 Fabien Burgos NP Specialist Cardiology 02/11/23 Angelica Price MD [address] [address] Specialist Cardiology 03/11/23 documented as of this encounter
--- OUTSIDE RECORDS SUMMARY | 2025-02-16 09:07 | XMS_ITS | Encounter Summary ---
Author Organization [facility] Address [address] [place] [address] Care Team Providers Care Director Dermatology Name Role Phone Gael Coffman MD Primary Care Provider Unavail able Aram Modi MD Primary Care Provider Yanet Gilmore Pcp Primary Care Provider UnavailRavinder Wallace MD Unavailable [phone] Fabien Burgos NP Unavailable [phone] Aram Modi MD Primary Care Provider Angelica Cardozo MD Unavailable [phone] Encounter Details Date Type Department Care Team Description 12/24/2010 [facility] Medical Records [address] [place] [address] Abstract, Provider Social History Tobacco Use Types [...] filedocumented in this encounter Care Teams Director Dermatology Relationship Specialty Start Date End Date Gael Coffman MD PCP - General 06/10/01 04/21/17 Aram Modi MD PCP - General Internal Medicine 04/22/17 09/10/20 [facility], Pcp PCP - General Internal Medicine 09/11/20 02/17/23 Aram Modi MD PCP - General Internal Medicine 02/18/23 Ravinder Jose MD Specialist Cardiology 02/11/23 Fabien Burgos NP Specialist Cardiology 02/11/23 Angelica Price MD [address] [place] [address] Specialist Cardiology 03/11/23 documented as of this encounter
--- OUTSIDE RECORDS SUMMARY | 2025-02-16 09:07 | XMS_ITS | Encounter Summary ---
Author Organization [facility] Address [address] [place] [address] Phone Care Team Providers Care Plug Stitcher Name Role Phone Aram Modi MD Primary Care Provider Aram Modi MD Primary Care Provider Aram Modi MD Unavailable Scott Souza MD Unavailable [phone] Alex Medina MD, MPH Unavailable [phone] Encounter Details Date Type Department Care Team (Late st Contact Info) Description 12/02/2022 Procedure Pass [facility] Imaging [facility], [facility] [place], [place] [address] [facility], Floor [address] [place], [place] [id number] Social History Tobacco Use Types Packs/Day Years [...] with a working camera? Not on file Sex and Gender Information Value Date Recorded Sex Assigned at Male 04/07/2020 10:14 AM EST Legal Sex Male 4:49 PM EST Gender Identity Male 04/07/2020 10:14 AM EST Sexual Orientation Straight 04/07/2020 10 :14 AM EST documented as of this encounter Plan of Treatment Upcoming Encounters Date Type Department Care Team (Latest Contact Info) Description 02/17/2025 8:00 AM EDT Pre-Admission Testing [address] [address] Aixa Luciano MD [address] [place] [address], [address] [address] PHILLY@[email or web address] 03/01/2025 Procedure Pass [address] [address] 03/01/2025 3:45 PM EDT Hospital Encounter [address] [address] Aixa Luciano MD [address] [place] [address], [address] [address] PHILLY@[email or web address] 03/01/2025 3:45 PM EDT - 03/01/2025 4:30 PM EDT Surgery [address] [address] Aixa Luciano MD [address] [place] [address], [address] [place] [address] PHILLY@[email or web address] ENDOSCOPIC ULTRASOUND /FNA - growing cyst in head 05/18/2025 11:00 AM EST Telemedicine [facility] Medical Specialties [address] [address] [place] [address] Alex Medina MD, MPH [address] [place] [address] PHIL@[email or web address] Scheduled Procedures Name Priority Associated Diagnoses Date/Ti me ENDOSCOPIC ULTRASOUND Cyst of pancreas 03/01/2025 3:45 PM EDT documented as of this encounter Visit Diagnoses Not on filedocumented in this encounter Care Teams Plug Stitcher Relationship Specialty Start Date End Date Aram Modi MD [address] [place] [address] PCP - General Internal Medicine 01/18/22 01/14/23 Aram Modi MD [address] [place] [address] PCP - General 01/15/23 Aram Modi MD [address] [place] [address] Internal Medicine 01/15/23 Scott Souza MD [address] [place] [address] [email or web address] Medical Oncology 12/08/15 Alex Medina MD, MPH [address] [place] [address] PHIL@[email or web address] Gastroenterology 11/23/20 documented as of this encounter Additional Source Comments The information contained in this document represents components of the legal health record. It is not the complete legal health record.[facility]
--- OUTSIDE RECORDS SUMMARY | 2025-02-16 09:07 | XMS_ITS | Encounter Summary ---
Author Organization [facility] Address [address] [place] [address] Care Team Providers Care Cyber Forensics Analyst Name Role Phone Gael Coffman MD Primary Care Provider Unavail able Aram Modi MD Primary Care Provider Yanet Gilmore Pcp Primary Care Provider UnavailRavinder Wallace MD Unavailable [phone] Fabien Burgos NP Unavailable [phone] Aram Modi MD Primary Care Provider Angelica Cardozo MD Unavailable [phone] Encounter Details Date Type Department Care Team Description 05/17/2012 [facility] Medical Records [address] [place] [address] Dao Guy Social History Tobacco Use Types [...] on filedocumented in this encounter Care Teams Cyber Forensics Analyst Relationship Specialty Start Date End Date Gael Coffman MD PCP - General 06/10/01 04/21/17 Aram Modi MD PCP - General Internal Medicine 04/22/17 09/10/20 [facility], Pcp PCP - General Internal Medicine 09/11/20 02/17/23 Aram Modi MD PCP - General Internal Medicine 02/18/23 Ravinder Jose MD Specialist Cardiology 02/11/23 Fabien Burgos NP Specialist Cardiology 02/11/23 Angelica Price MD [address] [place] [address] Specialist Cardiology 03/11/23 documented as of this encounter
--- OUTSIDE RECORDS SUMMARY | 2025-02-16 09:07 | XMS_ITS | Encounter Summary ---
Author Organization [facility] Address [address] [place] [address] Phone Care Team Providers Care Program Attendant Name Role Phone Aram Modi MD Primary Care Provider Aram Modi MD Unavailable Scott Souza MD Unavailable Alex Medina MD, MPH Unavailable [phone] Encounter Details Date Type Department Care Team (Late st Contact Info) Description 10/14/2023 Procedure Pass [facility] Department, [facility] [place], [place] [address] [facility], Floor [address] [place] [address] Social History Tobacco Use Types Packs/Day Years [...] Description 02/17/2025 8:00 AM EDT Pre-Admission Testing [address] [address] Aixa Luciano MD [address] [place] [address], [address] [address] PHILLY@[email or web address] 03/01/2025 Procedure Pass [address] [address] 03/01/2025 3:45 PM EDT Hospital Encounter [address] [address] Aixa Luciano MD [address] [place] [address], [address] [address] PHILLY@[email or web address] 03/01/2025 3:45 PM EDT - 03/01/2025 4:30 PM EDT Surgery [address] [address] Aixa Luciano MD [address] [place] [address], [address] [place] [address] [email or web address] ENDOSCOPIC ULTRASOUND /FNA - growing cyst in head 05/18/2025 11:00 AM EST Telemedicine [facility] Specialties [address] [facility]2-2 [place] [address] Alex Medina MD, MPH [address] [facility] [place] [address] PHIL@[email or web address] Scheduled Procedures Name Priority Associated Diagnoses Date/Ti fl ENDOSCOPIC ULTRASOUND Cyst of pancreas 03/01/2025 3:45 PM EDT documented as of this encounter Visit Diagnoses Not on filedocumented in this encounter Care Teams Program Attendant Relationship Specialty Start Date End Date Aram Modi MD [address] [place] [address] PCP - General 01/15/23 Aram Modi MD [facility] [address] Internal Medicine 01/15/23 Scott Souza MD [address] [place] [address] Andreea@[email or web address] Medical Oncology 12/08/15 Alex Medina MD, MPH [address] [place] [address] [email or web address] Gastroenterology 11/23/20 documented as of this encounter Additional Source Comments The information contained in this document represents components of the legal health record. It is not the complete legal health record.[facility]
--- OUTSIDE RECORDS SUMMARY | 2025-02-16 09:07 | XMS_ITS | Encounter Summary ---
Author Organization [facility] Address [address] [place] [address] Care Team Providers Care Finish Cleaner Name Role Phone Gael Coffman MD Primary Care Provider Unavail able Aram Modi MD Primary Care Provider Yanet Gilmore Pcp Primary Care Provider UnavailRavinder Wallace MD Unavailable [phone] Fabien Burgos NP Unavailable [phone] Aram Modi MD Primary Care Provider Angelica Cardozo MD Unavailable [phone] Encounter Details Date Type Department Care Team Description 12/26/2010 [facility] Medical Records [address] [place] [address] Sascha Keller MD Social History Tobacco Use [...] on filedocumented in this encounter Care Teams Finish Cleaner Relationship Specialty Start Date End Date Gael Coffman MD PCP - General 06/10/01 04/21/17 Aram Modi MD PCP - General Internal Medicine 04/22/17 09/10/20 [facility], Pcp PCP - General Internal Medicine 09/11/20 02/17/23 Aram Modi MD PCP - General Internal Medicine 02/18/23 Ravinder Jose MD Specialist Cardiology 02/11/23 Fabien Burgos NP Specialist Cardiology 02/11/23 Angelica Price MD [address] [place] [address] Specialist Cardiology 03/11/23 documented as of this encounter
--- OUTSIDE RECORDS SUMMARY | 2025-02-16 09:07 | XMS_ITS | Encounter Summary ---
Author Organization [facility] Address [address] [place] [address] Phone Care Team Providers Care Wall To Wall Carpet Installer Name Role Phone Gael Coffman MD Primary Care Provider Unav ailable Aram Modi MD Primary Care Provider Aram Modi MD Primary Care Provider Aram Modi MD Unavailable [phone] Scott Souza MD Unavailable Alex Medina MD, MPH Unavailable [phone] Encounter Details Date Type Department Care Team (Late st Contact Info) Description 12/12/2017 Procedure Pass [facility], [facility] [place], [place] [address] [facility], Floor [address] [place] [address] Social History Tobacco Use Types [...] Description 02/17/2025 8:00 AM EDT Pre-Admission Testing [address] [address] Aixa Luciano MD [address] [place] [address], [address] [place] [address] PHILLY@[facility] 03/01/2025 Procedure Pass [address] [address] 03/01/2025 3:45 PM EDT Hospital Encounter [address] [address] Aixa Luciano MD [address] [place] [address], [address] [address] PHILLY@[facility] 03/01/2025 3:45 PM EDT - 03/01/2025 4:30 PM EDT Surgery [address] [address] Aixa Luciano MD [address] [place] [address], [address] [place] [address] PHILLY@[facility] ENDOSCOPIC ULTRASOUND /FNA - growing cyst in head 05/18/2025 11:00 AM EST Telemedicine [facility] [address] [facility]2-2 [place] [address] Alex Medina MD, MPH [address] [place] [address], [facility] [place] [address] PHIL@[email or web address] Scheduled Procedures Name Priority Associated Diagnoses Date/Ti me ENDOSCOPIC ULTRASOUND Cyst of pancreas 03/01/2025 3:45 PM EDT documented as of this encounter Visit Diagnoses Not on filedocumented in this encounter Care Teams Wall To Wall Carpet Installer Relationship Specialty Start Date End Date Gael Coffman MD PCP - General 09/23/14 01/17/22 Aram Modi MD [facility] [address] PCP - General Internal Medicine 01/18/22 01/14/23 Aram Modi MD [facility] [address] PCP - General 01/15/23 Aram Modi MD [address] [place] [address] Internal Medicine 01/15/23 Scott Souza MD [address] [place] [address] [email or web address] Medical Oncology 12/08/15 Alex Medina MD, MPH [address] [place] [address] [email or web address] Gastroenterology 11/23/20 documented as of this encounter Additional Source Comments The information contained in this document represents components of the legal health record. It is not the complete legal health record.[facility]
--- OUTSIDE RECORDS SUMMARY | 2025-02-16 09:08 | XMS_ITS | Encounter Summary ---
Author Organization [facility] Address [address] [place] [address] Phone Care Team Providers Care Production Reproduction Manager Name Role Phone Gael Coffman MD Primary Care Provider Unav ailable Aram Modi MD Primary Care Provider Aram Modi MD Primary Care Provider Aram Modi MD Unavailable Scott Souza MD Unavailable [phone] Alex Medina MD, MPH Unavailable Encounter Details Date Type Department Care Team (Late st Contact Info) Description 01/14/2020 Transcribe Orders [facility] Endoscopy Department [address] [place] [address] Windy Social History Tobacco Use Types Packs/Day Years [...] Description 02/17/2025 8:00 AM EDT Pre-Admission Testing [address] [address] Aixa Luciano MD [address] [place] [address], [address] [place] [address] PHILLY@[email or web address] 03/01/2025 Procedure Pass [address] [address] 03/01/2025 3:45 PM EDT Hospital Encounter [address] [address] Aixa Luciano MD [address] [place] [address], [address] [address] PHILLY@[email or web address] 03/01/2025 3:45 PM EDT - 03/01/2025 4:30 PM EDT Surgery [address] [address] Aixa Luciano MD [address] [place] [address], [address] [place] [address] PHILLY@[email or web address] ENDOSCOPIC ULTRASOUND /FNA - growing cyst in head 05/18/2025 11:00 AM EST Telemedicine [facility] Medical Specialties 45 [facility]2-2 [place] [address] Alex Medina MD, MPH [address] [place] [address], [facility] [place] [address] PHIL@[email or web address] Scheduled Procedures Name Priority Associated Diagnoses Date/Ti me ENDOSCOPIC ULTRASOUND Cyst of pancreas 03/01/2025 3:45 PM EDT documented as of this encounter Visit Diagnoses Not on filedocumented in this encounter Care Teams Production Reproduction Manager Relationship Specialty Start Date End Date Gael Coffman MD PCP - General 09/23/14 01/17/22 Aram Modi MD [address] [place] [address] PCP - General Internal Medicine 01/18/22 01/14/23 Aram Modi MD [address] [place] [address] PCP - General 01/15/23 Aram Modi MD [address] [place] [address] Internal Medicine 01/15/23 Scott Souza MD [address] [place] [address] [email or web address] Medical Oncology 12/08/15 Alex Medina MD, MPH [address] [place] [address] [email or web address] Gastroenterology 11/23/20 documented as of this encounter Additional Source Comments The information contained in this document represents components of the legal health record. It is not the complete legal health record.[facility]
--- OUTSIDE RECORDS SUMMARY | 2025-02-16 09:08 | XMS_ITS | Encounter Summary ---
Author Organization [facility] Address [address] [place] [address] Care Team Providers Care Reinforcing Steel Worker Name Role Phone Gael Coffman MD Primary Care Provider Unavail able Aram Modi MD Primary Care Provider Luis E Parker Primary Care Provider UnavailRavinder Wallace MD Unavailable [phone] Fabien Burgos NP Unavailable [phone] Aram Modi MD Primary Care Provider Angelica Cardozo MD Unavailable Encounter Details Date Type Department Care Team Description 10/11/2014 Pt. Non Urgent Medical Question Adult Medicine B - [place] [address] [place] [address] Gael Coffman MD Social History Tobacco Use [...] on filedocumented in this encounter Care Teams Reinforcing Steel Worker Relationship Specialty Start Date End Date Gael Coffman MD PCP - General 06/10/01 04/21/17 Aram Modi MD PCP - General Internal Medicine 04/22/17 09/10/20 [facility]ly [facility], Pcp PCP - General Internal Medicine 09/11/20 02/17/23 Aram Modi MD PCP - General Internal Medicine 02/18/23 Ravinder Jose MD Specialist Cardiology 02/11/23 Fabien Burgos NP Specialist Cardiology 02/11/23 Angelica Price MD [address] [place] [address] Specialist Cardiology 03/11/23 documented as of this encounter
--- OUTSIDE RECORDS SUMMARY | 2025-02-16 09:08 | XMS_ITS | Clinical Summary ---
Author Organization [facility] Address [address] [place] [address] Care Team Providers Care Orthodontist Assistant Name Role Phone Gael Coffman MD Primary Care Provider Allergies Active Allergy [...] 1-dose 75+ series) 2015 Influenza Vaccine (#1) 2025 7, 02/27/2015, 05/02/2014, Additional history exists DTap / Tdap / Td (2 - Td or Tdap) 05/17/2026 05/17/2016 Pneumococcal Vaccine Completed 11/02/2014, 09/16/2013, 01/15/2002 Hepatitis B Vaccines Aged Out No long er eligible based on patient's age to complete this topic RSV Ped < 20 months Aged Out No longe r eligible based on patient's age to complete this topic Care Teams Orthodontist Assistant Relationship Specialty Start Date End Date Gael Coffman MD PCP - General Endocrinology 12/19/16
--- OUTSIDE RECORDS SUMMARY | 2025-02-16 09:08 | XMS_ITS | Encounter Summary ---
Author Organization [facility] Address [address] [place] [address] Care Team Providers Care Shirring Machine Operator Automatic Name Role Phone Ravinder Jose MD Unavailable [phone] Fabien Burgos NP Unavailable [phone] Aram Modi MD Primary Care Provider Angelica Cardozo MD Unavailable [phone] Encounter Details Date Type Department Care Team Description 02/19/2023 SCAN Medical Records [address] [place] [address] Abstract, Provider Social History Tobacco Use Types [...] on filedocumented in this encounter Care Teams Shirring Machine Operator Automatic Relationship Specialty Start Date End Date Aram Modi MD PCP - General Internal Medicine 02/18/23 Ravinder Jose MD Specialist Cardiology 02/11/23 Fabien Burgos NP Specialist Cardiology 02/11/23 Angelica Price MD [address] [place] [address] Specialist Cardiology 03/11/23 documented as of this encounter
--- OUTSIDE RECORDS SUMMARY | 2025-02-16 09:08 | XMS_ITS | Encounter Summary ---
Author Organization [facility] Address [address] [place] [address] Care Team Providers Care Dowel Sticker Operator Name Role Phone Gael Coffman MD Primary Care Provider Unavail able Aram Modi MD Primary Care Provider Luis E Parker Primary Care Provider UnavailRavinder Wallace MD Unavailable [phone] Fabien Burgos NP Unavailable [phone] Aram Modi MD Primary Care Provider Angelica Cardozo MD Unavailable [phone] Encounter Details Date Type Department Care Team Description 11/02/2014 Business Doc Medical Records [address] [place] [address] Abstract, Provider Social History Tobacco Use Types [...] on filedocumented in this encounter Care Teams Dowel Sticker Operator Relationship Specialty Start Date End Date Gael Coffman MD PCP - General 06/10/01 04/21/17 Aram Modi MD PCP - General Internal Medicine 04/22/17 09/10/20 [facility], Pcp PCP - General Internal Medicine 09/11/20 02/17/23 Aram Modi MD PCP - General Internal Medicine 02/18/23 Ravinder Jose MD Specialist Cardiology 02/11/23 Fabien Burgos NP Specialist Cardiology 02/11/23 Angelica Price MD [address] [place] [address] Specialist Cardiology 03/11/23 documented as of this encounter
--- OUTSIDE RECORDS SUMMARY | 2025-02-16 09:08 | XMS_ITS | Encounter Summary ---
Author Organization [facility] Address [address] [place] [address] Care Team Providers Care Air Compressor Engineer Name Role Phone Aram Modi MD Primary Care Provider Yanet Gilmore Pcp Primary Care Provider [facility] Ravinder Salvador MD Unavailable [phone] Fabien Burgos NP Unavailable [phone] Aram Modi MD Primary Care Provider Unava Angelica Russell MD Unavailable [phone] Encounter Details Date Type Department Care Team Description 07/22/2017 Telephone Medicine/Pediatrics - [address] [id number] Aram Modi MD Social History Tobacco Use [...] filedocumented in this encounter Care Teams Air Compressor Engineer Relationship Specialty Start Date End Date Aram Modi MD PCP - General Internal Medicine 04/22/17 09/10/20 [facility] PCP - General Internal Medicine 09/11/20 02/17/23 Aram Modi MD PCP - General Internal Medicine 02/18/23 Ravinder Jose MD Specialist Cardiology 02/11/23 Fabien Burgos NP Specialist Cardiology 02/11/23 Angelica Price MD [address] [place] [address] Specialist Cardiology 03/11/23 documented as of this encounter
--- OUTSIDE RECORDS SUMMARY | 2025-02-16 09:08 | XMS_ITS | Encounter Summary ---
Author Organization [facility] Address [address] [place] [address] Care Team Providers Care Crepe Box Tender Name Role Phone Gael Coffman MD Primary Care Provider Unavail able Aram Modi MD Primary Care Provider Yanet Gilmore Pcp Primary Care Provider UnavailRavinder Wallace MD Unavailable [phone] Fabien Burgos NP Unavailable [phone] Aram Modi MD Primary Care Provider Angelica Cardozo MD Unavailable Reason for Visit * Reason Onset Date Comments other 08/26/2014 Encounter Details Date Type Department Care Team Description 08/26/2014 Pt. Non Urgent Medical Question Adult Medicine - [place] [address] [place] [address] Gael Coffman MD Social History Tobacco Use [...] Tried returning call. Instructions were to call [phone] Dr. Coffman's office. Because no name was given they could not connect me. Feel the call was in reference to B 12 injections documented in this encounter Plan of Treatment Not on file documented as of this encounter Visit Diagnoses Not on filedocumented in this encounter Care Teams Crepe Box Tender Relationship Specialty Start Date End Date Gael Coffman MD PCP - General 06/10/01 04/21/17 Aarm Modi MD PCP - General Internal Medicine 04/22/17 09/10/20 [facility] Pcp PCP - General Internal Medicine 09/11/20 02/17/23 Aram Modi MD PCP - General Internal Medicine 02/18/23 Ravinder Jose MD Specialist Cardiology 02/11/23 Fabien Burgos NP Specialist Cardiology 02/11/23 Angelica Price MD [address] [place] [address] Specialist Cardiology 03/11/23 documented as of this encounter
--- OUTSIDE RECORDS SUMMARY | 2025-02-16 09:08 | XMS_ITS | Encounter Summary ---
Author Organization [facility] Address [address] [place] [address] Care Team Providers Care Terrazzo Worker Name Role Phone Aram Modi MD Primary Care Provider Yanet Gilmore, Pcp Primary Care Provider Unavail[facility]isc[facility] e Ravinder Jose MD Unavailable [phone] Fabien Burgos NP Unavailable [phone] Aram Modi MD Primary Care Provider Angelica Cardozo MD Unavailable [phone] Encounter Details Date Type Department Care Team Description 05/15/2017 [facility] Medical Records [address] [place] [address] Abstract, Provider Social History Tobacco Use Types [...] on filedocumented in this encounter Care Teams Terrazzo Worker Relationship Specialty Start Date End Date Aram Modi MD PCP - General Internal Medicine 04/22/17 09/10/20 [facility], Pcp PCP - General Internal Medicine 09/11/20 02/17/23 Aram Modi MD PCP - General Internal Medicine 02/18/23 Ravinder Jose MD Specialist Cardiology 02/11/23 Fabien Burgos NP Specialist Cardiology 02/11/23 Angelica Price MD [address] [facility] [address] [place] [address] Specialist Cardiology 03/11/23 documented as of this encounter
--- OUTSIDE RECORDS SUMMARY | 2025-02-16 09:08 | XMS_ITS | Encounter Summary ---
Author Organization [facility] Address [address] [place] [address] Care Team Providers Care Appeals Officer Name Role Phone Aram Modi MD Primary Care Provider Yanet Gilmore, Pcp Primary Care Provider [facility] e Ravinder Jose MD Unavailable [phone] Fabien Burgos NP Unavailable [phone] Aram Modi MD Primary Care Provider Angelica Cardozo MD Unavailable [phone] Encounter Details Date Type Department Care Team Description 12/12/2017 Pet Care Worker Report Medical Records [address] [place] [address] Abstract, Provider Social History Tobacco Use Types [...] on filedocumented in this encounter Care Teams Appeals Officer Relationship Specialty Start Date End Date Aram Modi MD PCP - General Internal Medicine 04/22/17 09/10/20 [facility], Pcp PCP - General Internal Medicine 09/11/20 02/17/23 Aram Modi MD PCP - General Internal Medicine 02/18/23 Ravinder Jose MD Specialist Cardiology 02/11/23 Fabien Burgos NP Specialist Cardiology 02/11/23 Angelica Price MD [address] [address] Specialist Cardiology 03/11/23 documented as of this encounter
--- OUTSIDE RECORDS SUMMARY | 2025-02-16 09:08 | XMS_ITS | Encounter Summary ---
Author Organization [facility] Address [address] [place] [address] Care Team Providers Care Machine Feeder Floorperson Name Role Phone Ravinder Jose MD Unavailable [phone] Fabien Burgos NP Unavailable [phone] Aram Modi MD Primary Care Provider Angelica Cardozo MD Unavailable Encounter Details Date Type Department Care Team Description 02/24/2023 Auto Brake Technician Report Medical Records [address] [place] [address] Abstract, Provider Social History Tobacco Use Types [...] filedocumented in this encounter Care Teams Machine Feeder Floorperson Relationship Specialty Start Date End Date Aram Modi MD PCP - General Internal Medicine 02/18/23 Ravinder Jose MD Specialist Cardiology 02/11/23 Fabien Burgos NP Specialist Cardiology 02/11/23 Angelica Price MD [address] [address] Specialist Cardiology 03/11/23 documented as of this encounter
--- OUTSIDE RECORDS SUMMARY | 2025-02-16 09:08 | XMS_ITS | Encounter Summary ---
Author Organization [facility] Address [address] [place] [address] Phone Care Team Providers Care Patient Financial Counselor Name Role Phone Gael Coffman MD Primary Care Provider Unav ailable Aram Modi MD Primary Care Provider Aram Modi MD Primary Care Provider Aram Modi MD Unavailable Scott Souza MD Unavailable Alex Medina MD, MPH Unavailable Encounter Details Date Type Department Care Team (Late st Contact Info) Description 12/17/2019 Procedure Pass [facility], [facility], MRI [address] [facility], Floor [address]1 [place] [address] Social History Tobacco Use Types [...] 02/17/2025 8:00 AM EDT Pre-Admission Testing [address] [address] Aixa Luciano MD [address] [place] [address], [address] [place] [address] [email or web address] 03/01/2025 Procedure Pass [address] [address] 03/01/2025 3:45 PM EDT Hospital Encounter [address] [address] Aixa Luciano MD [address] [place] [address], [address] [address] [email or web address] 03/01/2025 3:45 PM EDT - 03/01/2025 4:30 PM EDT Surgery [address] [address] Aixa Luciano MD [address] [place] [address], [address] [place] [address] [email or web address] ENDOSCOPIC ULTRASOUND /FNA - growing cyst in head 05/18/2025 11:00 AM EST Telemedicine [facility] [address] [facility] [place] [address] Alex Medina MD, MPH [address] [place] [address], [facility] [place] [address] [email or web address] Scheduled Procedures Name Priority Associated Diagnoses Date/Ti me ENDOSCOPIC ULTRASOUND Cyst of pancreas 03/01/2025 3:45 PM EDT documented as of this encounter Visit Diagnoses Not on filedocumented in this encounter Care Teams Patient Financial Counselor Relationship Specialty Start Date End Date Gael Coffman MD PCP - General 09/23/14 01/17/22 Aram Modi MD [facility] [address] PCP - General Internal Medicine 01/18/22 01/14/23 Aram Modi MD [facility] [address] PCP - General 01/15/23 Aram Modi MD [address] [place] [address] Internal Medicine 01/15/23 Scott Souza MD [address] [place] [address] [email or web address] 12/08/15 Alex Medina MD, MPH [address] [place] [address] [email or web address] Gastroenterology 11/23/20 documented as of this encounter Additional Source Comments The information contained in this document represents components of the legal health record. It is not the complete legal health record.[facility]
--- OUTSIDE RECORDS SUMMARY | 2025-02-16 09:08 | XMS_ITS | Encounter Summary ---
Author Organization [facility] Address [address] [place] [address] Care Team Providers Care Tax Senior Associate Name Role Phone Gael Coffman MD Primary Care Provider Unavail able Aram Modi MD Primary Care Provider Yanet Gilmore Pcp Primary Care Provider UnavailRavinder Wallace MD Unavailable [phone] Fabien Burgos NP Unavailable [phone] Aram Modi MD Primary Care Provider Angelica Cardozo MD Unavailable [phone] Reason for Visit * Reason Onset Date Comments Mychart Rx Refill 09/18/2014 Encounter Details Date Type Department Care Team Description 09/18/2014 Pt. Non Urgent Medical Question Adult Medicine - [address] [address] Gael Coffman MD Social History Tobacco Use [...] MG 90 pcs. /3 months supply to [address] Luis Felder. Thank You documented in this encounter Plan of Treatment Not on file documented as of this encounter Visit Diagnoses Not on filedocumented in this encounter Care Teams Tax Senior Associate Relationship Specialty Start Date End Date [...] [address] [facility] [address] [place] [address] Specialist Cardiology 03/11/23 documented as of this encounter
--- OUTSIDE RECORDS SUMMARY | 2025-02-16 09:08 | XMS_ITS | Encounter Summary ---
Author Organization [facility] Address [address] [place] [address] Care Team Providers Care President And Chief Executive Officer Name Role Phone Aram Modi MD Primary Care Provider Yanet Gilmore Pcp Primary Care [facility] Ravinder Salvador MD Unavailable [phone] Fabien Burgos NP Unavailable Aram Modi MD Primary Care Provider Unava Angelica Russell MD Unavailable [phone] Encounter Details Date Type Department Care Team Description 09/15/2017 Pt. Non Urgent Medical Question Hypertension - [place] [address] [place] [address] Felicitas Love, Pharm.D Benign prostatic hyperplasia, unspecified [...] an error. In requesting various refills from [facility] I received a letter from them saying they could not fill my request for Tamsulosin as it was not approved by my doctor. I feel this must have been an oversight. Unless there is a reason that I am not aware of, I am asking that my script be sent in to my local [facility] at your earliest possible convenience as I [...] Primary documented in this encounter Care Teams President And Chief Executive Officer Relationship Specialty Start Date End Date Aram Modi MD PCP - General Internal Medicine 04/22/17 09/10/20 [facility] PCP - General Internal Medicine 09/11/20 02/17/23 Aram Modi MD PCP - General Internal Medicine 02/18/23 Ravinder Jose MD Specialist Cardiology 02/11/23 Fabien Burgos NP Specialist Cardiology 02/11/23 Angelica Price MD [address] [place] [address] Specialist Cardiology 03/11/23 documented as of this encounter
--- OUTSIDE RECORDS SUMMARY | 2025-02-16 09:08 | XMS_ITS | Encounter Summary ---
Author Organization [facility] Address [address] [place] [address] Care Team Providers Care Assembler Leather Goods Name Role Phone Ravinder Jose MD Unavailable [phone] Fabien Burgos NP Unavailable [phone] Aram Modi MD Primary Care Provider Angelica Cardozo MD Unavailable [phone] Encounter Details Date Type Department Care Team Description 03/21/2023 Refill Medicine/Pediatrics - [address] [address] Sal Finney PA-C Social History Tobacco Use [...] present documented in this encounter Care Teams Assembler Leather Goods Relationship Specialty Start Date End Date Aram Modi MD PCP - General Internal Medicine 02/18/23 Ravinder Jose MD Specialist Cardiology 02/11/23 Fabien Burgos NP Specialist Cardiology 02/11/23 Angelica Price MD 300 [facility] [address] [place] [address] Specialist Cardiology 03/11/23 documented as of this encounter
--- OUTSIDE RECORDS SUMMARY | 2025-02-16 09:08 | XMS_ITS | Encounter Summary ---
Author Organization [facility] Address [address] [place] [address] Care Team Providers Care Network Security Consultant Name Role Phone Gael Coffman MD Primary Care Provider Unavail able Aram Modi MD Primary Care Provider Yanet Gilmore Pcp Primary Care Provider UnavailRavinder Wlalace MD Unavailable [phone] Fabien Burgos NP Unavailable [phone] Aram Modi MD Primary Care Provider Angelica Cardozo MD Unavailable [phone] Encounter Details Date Type Department Care Team Description 10/09/2014 Pt. Non Urgent Medical Question Adult Medicine B - [place] [address] [place] [address] Gael Coffman MD Social History Tobacco Use [...] this one medication. In talking with a backstitch service rep he said there was a [...] on filedocumented in this encounter Care Teams Network Security Consultant Relationship Specialty Start Date End Date Gael Coffman MD PCP - General 06/10/01 04/21/17 Aram Modi MD PCP - General Internal Medicine 04/22/17 09/10/20 [facility], Pcp PCP - General Internal Medicine 09/11/20 02/17/23 Aram Modi MD PCP - General Internal Medicine 02/18/23 Ravinder Jose MD Specialist Cardiology 02/11/23 Fabien Burgos NP Specialist Cardiology 02/11/23 Angelica Price MD [address] [address] Specialist Cardiology 03/11/23 documented as of this encounter
--- OUTSIDE RECORDS SUMMARY | 2025-02-16 09:08 | XMS_ITS | Encounter Summary ---
Author Organization [facility] Address [address] [place] [address] Care Team Providers Care Artist Blacksmith Name Role Phone Ravinder Jose MD Unavailable Fabien Burgos NP Unavailable [phone] Aram Modi MD Primary Care Provider Angelica Cardozo MD Unavailable [phone] Encounter Details Date Type Department Care Team Description 03/18/2023 SCAN Medical Records [address] [place] [address] Abstract, Provider Social History Tobacco Use Types [...] on filedocumented in this encounter Care Teams Artist Blacksmith Relationship Specialty Start Date End Date Aram Modi MD PCP - General Internal Medicine 02/18/23 Ravinder Jose MD Specialist Cardiology 02/11/23 Fabien Burgos NP Specialist Cardiology 02/11/23 Angelica Price MD [address] [address] Specialist Cardiology 03/11/23 documented as of this encounter
--- OUTSIDE RECORDS SUMMARY | 2025-02-16 09:08 | XMS_ITS | Encounter Summary ---
Author Organization [facility] Address [address] [place] [address] Care Team Providers Care Tube Former Operator Name Role Phone Ravinder Jose MD Unavailable [phone] Fabien Burgos NP Unavailable [phone] Aram Modi MD Primary Care Provider Angelica Cardozo MD Unavailable [phone] Encounter Details Date Type Department Care Team Description 03/05/2023 Hospital Medical Records [address] [place] [address] Social History Tobacco Use Types Packs/Day Years [...] on filedocumented in this encounter Care Teams Tube Former Operator Relationship Specialty Start Date End Date Aram Modi MD PCP - General Internal Medicine 02/18/23 Ravinder Jose MD Specialist Cardiology 02/11/23 Fabien Burgos NP Specialist Cardiology 02/11/23 Angelica Price MD [address] [address] Specialist Cardiology 03/11/23 documented as of this encounter
--- OUTSIDE RECORDS SUMMARY | 2025-02-16 09:08 | XMS_ITS | Encounter Summary ---
Author Organization [facility] Address [address] [place] [address] Care Team Providers Care Raw Stock Dyeing Machine Tender Name Role Phone Ravinder Jose MD Unavailable [phone] Fabien Burgos NP Unavailable [phone] Aram Modi MD Primary Care Provider Angelica Cardozo MD Unavailable [phone] Reason for Visit * Reason Onset Date Comments Swelling 11/05/2023 other 11/05/2023 labs Encounter Details Date Type Department Care Team Description 11/05/2023 Telephone Cardio [facility] [address] [place] [address] Ravinder Jose MD [address] [place] [id number] Swelling; other (labs) Social History Tobacco Use [...] with patient. * Telephone Encounter - Anat Lozaon C.M.A. - 11/24/2023 9:10 AM EDT Received labs. [facility] viewed. Called patient per to see how patient ws feeling. Patient still has quite a bit of edema. Both feet are swelling and the left leg. Patient states he wears compression stockings during the day to help, but still at the end of the day he states his feet look like soccer balls. * Telephone Encounter - Leonie aSntana C.M.A. - 11/19/2023 3:49 PM EDT I spoke to Mr Velez and advised as below--he will continue taking the furosemide , [facility] I have [facility]. He know someone [...] leg is double in size. Please advise [phone] * Telephone Encounter - Fabien Burgos NP - 11/05/2023 1:57 PM EDT Spoke to patient - had swelling - tried HCTZ and stopped eplerenone. Patient will stop HCTZ, restart eplerenone and start Lasix 40mg daily with BMP in one week. * Telephone Encounter - Leonie Santana C.M.A. - 11/05/2023 9:23 AM EDT I spoke with yC who has been having issues with leg [...] his knee. Please call him back at [phone]. documented in this encounter Plan of Treatment Not on file documented as of this encounter Visit Diagnoses Diagnosis Cardiomyopathy, unspecified type (HCC)- Primary documented in this encounter Care Teams Raw Stock Dyeing Machine Tender Relationship Specialty Start Date End Date Aram Modi MD PCP - General Internal Medicine 02/18/23 Ravinder Jose MD Specialist Cardiology 02/11/23 Ravinder BurgosFabien, NP Specialist Cardiology 02/11/23 Angelica Price MD [address] [place] [address] Specialist Cardiology 03/11/23 documented as of this encounter
--- OUTSIDE RECORDS SUMMARY | 2025-02-16 09:08 | XMS_ITS | Encounter Summary ---
Author Organization [facility] Address [address] [place] [address] Care Team Providers Care Art Glass Designer Name Role Phone Aram Modi MD Primary Care Provider Yanet Gilmore Pcp Primary Care Provider UnavailRavinder Wallace MD Unavailable [phone] Fabien Burgos NP Unavailable [phone] Aram Modi MD Primary Care Provider Angelica Cardozo MD Unavailable [phone] Encounter Details Date Type Department Care Team Description 04/15/2018 Transfer Records Medical Records [address] [place] [address] Abstract, Provider Social History Tobacco Use Types [...] filedocumented in this encounter Care Teams Art Glass Designer Relationship Specialty Start Date End Date Aram Modi MD PCP - General Internal Medicine 04/22/17 09/10/20 [facility], Pcp PCP - General Internal Medicine 09/11/20 02/17/23 Aram Modi MD PCP - General Internal Medicine 02/18/23 Ravinder Jose MD Specialist Cardiology 02/11/23 Fabien Burgos NP Specialist Cardiology 02/11/23 Angelica Price MD [address] [address] Specialist Cardiology 03/11/23 documented as of this encounter
--- OUTSIDE RECORDS SUMMARY | 2025-02-16 09:08 | XMS_ITS | Encounter Summary ---
Author Organization [facility] Address [address] [place] [address] Care Team Providers Care Piano Maker Name Role Phone Ravinder Jose MD Unavailable [phone] Fabien Burgos NP Unavailable [phone] Aram Modi MD Primary Care Provider Angelica Cardozo MD Unavailable [phone] Encounter Details Date Type Department Care Team Description 07/12/2023 Pt. Non Urgent Medical Question Cardio PVC [facility] [address] [place] [id number] Fabien Burgos, LEAH [address] [place], [place] [id number] Social History Tobacco Use Types Packs/Day [...] on filedocumented in this encounter Care Teams Piano Maker Relationship Specialty Start Date End Date Aram Modi MD PCP - General Internal Medicine 02/18/23 Ravinder Jose MD Specialist Cardiology 02/11/23 Fabien Burgos NP Specialist Cardiology 02/11/23 Angelica Price MD [address] [place] [address] Specialist Cardiology 03/11/23 documented as of this encounter
--- OUTSIDE RECORDS SUMMARY | 2025-02-16 09:08 | XMS_ITS | Encounter Summary ---
Author Organization [facility] Address [address] [place] [address] Care Team Providers Care Turbine Technician Name Role Phone Aram Modi MD Primary Care Provider Unakuldeep Gilmore, Pcp Primary Care Provider Unavailabl Ravinder Salavdor MD Unavailable Fabien Burgos NP Unavailable [phone] Aram Modi MD Primary Care Provider Unava Angelica Russell MD Unavailable [phone] Encounter Details Date Type Department Care Team Description 09/01/2017 Orders Only Medicine/Pediatrics - [address] [address] Aram Modi MD Social History Tobacco Use [...] on filedocumented in this encounter Care Teams Turbine Technician Relationship Specialty Start Date End Date Aram Modi MD PCP - General Internal Medicine 04/22/17 09/10/20 [facility], Pcp PCP - General Internal Medicine 09/11/20 02/17/23 Aram Modi MD PCP - General Internal Medicine 02/18/23 Ravinder Jose MD Specialist Cardiology 02/11/23 Fabien Burgos NP Specialist Cardiology 02/11/23 Angelica Price MD 300 [place] [address] Specialist Cardiology 03/11/23 documented as of this encounter
--- OUTSIDE RECORDS SUMMARY | 2025-02-16 09:08 | XMS_ITS | Encounter Summary ---
Author Organization [facility] Address [address] [place] [address] Care Team Providers Care Loan Servicing Officer Name Role Phone Gael Coffman MD Primary Care Provider Unavail able Aram Modi MD Primary Care Provider Yanet Gilmore Pcp Primary Care Provider UnavailRavinder Wallace MD Unavailable [phone] Fabien Burgos NP Unavailable [phone] Aram Modi MD Primary Care Provider Angelica Cardozo MD Unavailable [phone] Reason for Visit * Reason Onset Date Comments medication problems 10/12/2014 Encounter Details Date Type Department Care Team Description 10/12/2014 Pt. Non Urgent Medical Question Adult Medicine - [place] [address] [place] [address] Gael Coffman MD Social History Tobacco Use [...] filedocumented in this encounter Care Teams Loan Servicing Officer Relationship Specialty Start Date End Date Gael Coffman MD PCP - General 06/10/01 04/21/17 Aram Modi MD PCP - General Internal Medicine 04/22/17 09/10/20 [facility] PCP - General Internal Medicine 09/11/20 02/17/23 Aram Modi MD PCP - General Internal Medicine 02/18/23 Ravinder Jose MD Specialist Cardiology 02/11/23 Fabien Burgos NP Specialist Cardiology 02/11/23 Angelica Price MD [address] [place] [address] Specialist Cardiology 03/11/23 documented as of this encounter
--- OUTSIDE RECORDS SUMMARY | 2025-02-16 09:08 | XMS_ITS | Encounter Summary ---
Author Organization [facility] Address [address] [place] [address] Care Team Providers Care Mutuel Clerk Name Role Phone Ravinder Jose MD Unavailable [phone] Fabien Burgos NP Unavailable [phone] Aram Modi MD Primary Care Provider [facility] Angelica Price MD Unavailable [phone] Encounter Details Date Type Department Care Team Description 07/21/2023 Primary Special Education Teacher Report Medical Records [address] [place] [address] Aram Modi MD Social History Tobacco Use [...] on filedocumented in this encounter Care Teams Mutuel Clerk Relationship Specialty Start Date End Date Aram Modi MD PCP - General Internal Medicine 02/18/23 Ravinder Jose MD Specialist Cardiology 02/11/23 Fabien Burgos NP Specialist Cardiology 02/11/23 Angelica Price MD 300 [facility] [address] [place] [address] Specialist Cardiology 03/11/23 documented as of this encounter
--- OUTSIDE RECORDS SUMMARY | 2025-02-16 09:08 | XMS_ITS | Encounter Summary ---
Author Organization [facility] Address [address] [place] [address] Care Team Providers Care Clearing Distribution Clerk Name Role Phone Ravinder Jose MD Unavailable [phone] Fabien Burgos NP Unavailable [phone] Aram Modi MD Primary Care Provider Angelica Cardozo MD Unavailable [phone] Encounter Details Date Type Department Care Team Description 03/06/2023 SCAN Medical Records [address] [place] [address] Abstract, Provider Social History Tobacco Use Types [...] on filedocumented in this encounter Care Teams Clearing Distribution Clerk Relationship Specialty Start Date End Date Aram Modi MD PCP - General Internal Medicine 02/18/23 Ravinder Jose MD Specialist Cardiology 02/11/23 Fabien Burgos NP Specialist Cardiology 02/11/23 Angelica Price MD [address] [place] [address] Specialist Cardiology 03/11/23 documented as of this encounter
--- OUTSIDE RECORDS SUMMARY | 2025-02-16 09:08 | XMS_ITS | Encounter Summary ---
Author Organization [facility] Address [address] [place] [address] Care Team Providers Care Music Therapist Name Role Phone Gael Coffman MD Primary Care Provider Unavail able Aram Modi MD Primary Care Provider Yanet Gilmore Pcp Primary Care Provider UnavailRavinder Wallace MD Unavailable [phone] Fabien Burgos NP Unavailable [phone] Aram Modi MD Primary Care Provider Angelica Cardozo MD Unavailable [phone] Encounter Details Date Type Department Care Team Description 10/09/2014 Pt. Non Urgent Medical Question Adult Medicine B - [place] [address] [place] [address] Gael Coffman MD Social History Tobacco Use [...] filedocumented in this encounter Care Teams Music Therapist Relationship Specialty Start Date End Date Gael Coffman MD PCP - General 06/10/01 04/21/17 Aram Modi MD PCP - General Internal Medicine 04/22/17 09/10/20 [facility], Pcp PCP - General Internal Medicine 09/11/20 02/17/23 Aram Modi MD PCP - General Internal Medicine 02/18/23 Ravinder Jose MD Specialist Cardiology 02/11/23 Fabien Burgos NP Specialist Cardiology 02/11/23 Angelica Price MD [address] [place] [address] Specialist Cardiology 03/11/23 documented as of this encounter
--- OUTSIDE RECORDS SUMMARY | 2025-02-16 09:08 | XMS_ITS | Encounter Summary ---
Author Organization [facility] Address [address] [place] [address] Care Team Providers Care Station Mechanic Helper Name Role Phone Aram Modi MD Primary Care Provider Unakuldeep Gilmore Pcp Primary [facility] Ravinder Salvador MD Unavailable [phone] Fabien Burgos NP Unavailable [phone] Aram Modi MD Primary Care Provider Unava Angelica Russell MD Unavailable [phone] Encounter Details Date Type Department Care Team Description 05/23/2017 Telephone Medicine/Pediatrics - [address] [address] Aram Modi MD Social History Tobacco Use [...] - 100 mg/dL 08/06/2017 6:01 PM [facility] Comment: Reference range applicable to fasting specimens only Based on recommendations from the ADA and AACE, the fasting glucose reference range has been changed to 70-100 mg/dL. This change is effective October 02, 2009 BUN 38(H) 5 - 25 mg/dL 08/06/2017 6:01 PM T [facility] CREAT 1.6(H) 0.7 - 1.5 mg/dL 08/06/2017 6:01 PM [facility] GFR 45(L) >60 08/06/2017 6:01 PM [facility] Comment: If patient is -Central African, multiply result by 1.21 Chronic Kidney Disease: < 60 ml/min/1.73 square meters Kidney Failure: < 15 ml/min/1.73 square meters Sodium 139 133 - 145 mEq/L 08/06/2017 6:01 PM EDT [facility] Potassium 4.9 3.5 - 5.5 mEq/L 08/06/2017 6:01 PM [facility] Chloride 101 96 - 108 mEq/L 08/06/2017 6:01 PM [facility] CO2 26.8 21.0 - 32.0 mEq/L 08/06/2017 6:01 PM [facility] CALCIUM 9.7 8.5 - 10.5 mg/dL 08/06/2017 6:01 PM [facility] 08/06/2017 1:11 PM EDT 08/06/2017 1:11 PM EDT Aram Modi MD LAB [facility] [address] [facility] documented in this encounter Visit Diagnoses Diagnosis Essential hypertension- Primary Unspecified essential hypertension documented in this encounter Care Teams Station Mechanic Helper Relationship Specialty Start Date End Date Aram Modi MD PCP - General Internal Medicine 04/22/17 09/10/20 [facility], Pcp PCP - General Internal Medicine 09/11/20 02/17/23 Aram Modi MD PCP - General Internal Medicine 02/18/23 Ravinder Jose MD Specialist Cardiology 02/11/23 Fabien Burgos NP Specialist Cardiology 02/11/23 Angelica Price MD [address] [place] [address] Specialist Cardiology 03/11/23 documented as of this encounter
--- OUTSIDE RECORDS SUMMARY | 2025-02-16 09:08 | XMS_ITS | Encounter Summary ---
Author Organization [facility] Address [address] [place] [address] Care Team Providers Care Hydrotel Operator Name Role Phone Aram Modi MD Primary Care Provider Yanet Gilmore, Pcp Primary Care Provider Unavailabl e Ravinder Jose MD Unavailable [phone] Fabien Burgos NP Unavailable [phone] Aram Modi MD Primary Care Provider Angelica Cardozo MD Unavailable [phone] Encounter Details Date Type Department Care Team Description 08/21/2017 Release of Information Medical Records [address] [place] [address] Abstract, Provider Social History Tobacco Use Types [...] on filedocumented in this encounter Care Teams Hydrotel Operator Relationship Specialty Start Date End Date Aram Modi MD PCP - General Internal Medicine 04/22/17 09/10/20 [facility], Pcp PCP - General Internal Medicine 09/11/20 02/17/23 Aram Modi MD PCP - General Internal Medicine 02/18/23 Ravinder Jose MD Specialist Cardiology 02/11/23 Fabien Burgos NP Specialist Cardiology 02/11/23 Angelica Price MD 300 [facility] [address] [place] [address] Specialist Cardiology 03/11/23 documented as of this encounter
--- OUTSIDE RECORDS SUMMARY | 2025-02-16 09:08 | XMS_ITS | Encounter Summary ---
Author Organization [facility] Address [address] [place] [address] Care Team Providers Care Rn Telephone Triage Name Role Phone Ravinder Jose MD Unavailable [phone] Fabien Burgos NP Unavailable [phone] Aram Modi MD Primary Care Provider Angelica Cardozo MD Unavailable [phone] Encounter Details Date Type Department Care Team Description 03/21/2023 Refill Medicine/Pediatrics - [address] [phone] Jeronimo Rothman PA-C Social History Tobacco Use [...] filedocumented in this encounter Care Teams Rn Telephone Triage Relationship Specialty Start Date End Date Aram Modi MD PCP - General Internal Medicine 02/18/23 Ravinder Jose MD Specialist Cardiology 02/11/23 Fabien Burgos NP Specialist Cardiology 02/11/23 Angelica Price MD 300 [facility] [address] [place] [address] Specialist Cardiology 03/11/23 documented as of this encounter
--- OUTSIDE RECORDS SUMMARY | 2025-02-16 09:08 | XMS_ITS | Encounter Summary ---
Author Organization [facility] Address [address] [place] [address] Phone Care Team Providers Care Decorator Consultant Name Role Phone Gael Coffman MD Primary Care Provider Unav ailable Aram Modi MD Primary Care Provider Aram Modi MD Primary Care Provider Aram Modi MD Unavailable Scott Souza MD Unavailable Alex Medina MD, MPH Unavailable Encounter Details Date Type Department Care Team (Late st Contact Info) Description 01/27/2020 Procedure Pass [facility] Endoscopy Department [address] [place] [address] Social History Tobacco Use Types Packs/Day Years [...] Description 02/17/2025 8:00 AM EDT Pre-Admission Testing [address] [address] Aixa Luciano MD [address] [place] [address], [address] [place] [address] [email or web address] 03/01/2025 Procedure Pass [address] [address] 03/01/2025 3:45 PM EDT Hospital Encounter [address] [address] Aixa Luciano MD [address] [place] [address], [address] [address] [email or web address] 03/01/2025 3:45 PM EDT - 03/01/2025 4:30 PM EDT Surgery [address] [address] Aixa Luciano MD [address] [place] [address], [address] [address] [email or web address] ENDOSCOPIC ULTRASOUND /FNA - growing cyst in head 05/18/2025 11:00 AM EST Telemedicine [facility] [place] [address] Alex Medina MD, MPH [address] [place] [address], [place] [address] [email or web address] Scheduled Procedures Name Priority Associated Diagnoses Date/Ti me ENDOSCOPIC ULTRASOUND Cyst of pancreas 03/01/2025 3:45 PM EDT documented as of this encounter Visit Diagnoses Not on filedocumented in this encounter Care Teams Decorator Consultant Relationship Specialty Start Date End Date Gael Coffman MD PCP - General 09/23/14 01/17/22 Aram Modi MD [address] [place] [address] PCP - General Internal Medicine 01/18/22 01/14/23 Aram Modi MD [address] [place] [address] PCP - General 01/15/23 Aram Modi MD [address] [place] [address] Internal Medicine 01/15/23 Scott Souza MD [address] [place] [address] [email or web address] Medical Oncology 12/08/15 Alex Medina MD, MPH [address] [place] [address] [email or web address] Gastroenterology 11/23/20 documented as of this encounter Additional Source Comments The information contained in this document represents components of the legal health record. It is not the complete legal health record.[facility]
--- OUTSIDE RECORDS SUMMARY | 2025-02-16 09:08 | XMS_ITS | Encounter Summary ---
Author Organization [facility] Address [address] [place] [address] Phone Care Team Providers Care Social Services Manager Name Role Phone Gael Coffman MD Primary Care Provider Unav ailable Aram Moid MD Primary Care Provider Aram Modi MD Primary Care Provider Aram Modi MD Unavailable Scott Souza MD Unavailable Alex Medina MD, MPH Unavailable [phone] Encounter Details Date Type Department Care Team (Late st Contact Info) Description 04/07/2020 Procedure Pass [facility] MR Imaging, [place] [address] [place] [address] Social History Tobacco Use Types Packs/Day Years [...] Description 02/17/2025 8:00 AM EDT Pre-Admission Testing [address] [address] Aixa Luciano MD [address] [place] [address], [address] [place] [address] [email or web address] 03/01/2025 Procedure Pass [address] [address] 03/01/2025 3:45 PM EDT Hospital Encounter [address] [address] Aixa Luciano MD [address] [place] [address], [address] [address] [email or web address] 03/01/2025 3:45 PM EDT - 03/01/2025 4:30 PM EDT Surgery [address] [address] Aixa Luciano MD [address] [place] [address], [address] [address] [email or web address] ENDOSCOPIC ULTRASOUND /FNA - growing cyst in head 05/18/2025 11:00 AM EST Telemedicine [facility] 45 [facility]2 [place] [address] Alex Medina MD, MPH [address] [place] [address], [facility] [address] [email or web address] Scheduled Procedures Name Priority Associated Diagnoses Date/Ti me ENDOSCOPIC ULTRASOUND Cyst of pancreas 03/01/2025 3:45 PM EDT documented as of this encounter Visit Diagnoses Not on filedocumented in this encounter Care Teams Social Services Manager Relationship Specialty Start Date End Date Gael Coffman MD PCP - General 09/23/14 01/17/22 Aram Modi MD [address] [place] [address] PCP - General Internal Medicine 01/18/22 01/14/23 Aram Modi MD [address] [place] [address] PCP - General 01/15/23 Aram Modi MD [address] [place] [address] Internal Medicine 01/15/23 Scott Souza MD [address] [place] [address] [email or web address] Medical Oncology 12/08/15 Alex Medina MD, MPH [address] [place] [address] [email or web address] Gastroenterology 11/23/20 documented as of this encounter Additional Source Comments The information contained in this document represents components of the legal health record. It is not the complete legal health record.[facility]
--- OUTSIDE RECORDS SUMMARY | 2025-02-16 09:08 | XMS_ITS | Encounter Summary ---
Author Organization [facility] Address [address] [place] [address] Care Team Providers Care Beveling And Edging Machine Operator Name Role Phone Ravinder Jose MD Unavailable [phone] Fabien Burgos NP Unavailable [phone] Aram Modi MD Primary Care Provider Angelica Cardozo MD Unavailable Encounter Details Date Type Department Care Team Description 03/22/2023 Telephone Cardio PVC POC [address] [facility] [address] [place] [address] Danny Hammond MD 300 [facility] [address] [place] [address] Social History Tobacco Use Types Packs/Day Years [...] on filedocumented in this encounter Care Teams Beveling And Edging Machine Operator Relationship Specialty Start Date End Date Aram Modi MD PCP - General Internal Medicine 02/18/23 Ravinder Jose MD Specialist Cardiology 02/11/23 Fabien Burgos NP Specialist Cardiology 02/11/23 Angelica Price MD [address] [place] [address] Specialist Cardiology 03/11/23 documented as of this encounter
--- OUTSIDE RECORDS SUMMARY | 2025-02-16 09:08 | XMS_ITS | Encounter Summary ---
Author Organization [facility] Address [address] [place] [address] Care Team Providers Care Outpatient Coder Name Role Phone Gael Coffman MD Primary Care Provider Unavail able Aram Modi MD Primary Care Provider Yanet Gilmore Pcp Primary Care Provider UnavailRavinder Wallace MD Unavailable [phone] Fabien Burgos NP Unavailable [phone] Aram Modi MD Primary Care Provider Angelica Cardozo MD Unavailable [phone] Reason for Visit * Reason Onset Date Comments Prior Authorization 10/12/2014 letter of de nial for inspra Encounter Details Date Type Department Care Team Description 10/12/2014 Telephone Adult Medicine [facility] [address] [place] [address] Gael Coffman MD Prior Authorization (letter of [...] on filedocumented in this encounter Care Teams Outpatient Coder Relationship Specialty Start Date End Date Gael Coffman MD PCP - General 06/10/01 04/21/17 Aram Modi MD PCP - General Internal Medicine 04/22/17 09/10/20 [facility], Pcp PCP - General Internal Medicine 09/11/20 02/17/23 Aram Modi MD PCP - General Internal Medicine 02/18/23 Ravinder Jose MD Specialist Cardiology 02/11/23 Fabien Burgos NP Specialist Cardiology 02/11/23 Angelica Price MD [address] [place] [address] Specialist Cardiology 03/11/23 documented as of this encounter
--- OUTSIDE RECORDS SUMMARY | 2025-02-16 09:08 | XMS_ITS | Encounter Summary ---
Author Organization [facility] Address [address] [place] [address] Care Team Providers Care Dealer Card Room Name Role Phone Ravinder Jose MD Unavailable [phone] Fabien Burgos NP Unavailable [phone] Aram Modi MD Primary Care Provider Angelica Cardozo MD Unavailable Encounter Details Date Type Department Care Team Description 11/21/2023 SCAN Medical Records [address] [place] [address] Abstract, Provider Social History Tobacco Use Types [...] on filedocumented in this encounter Care Teams Dealer Card Room Relationship Specialty Start Date End Date Aram Modi MD PCP - General Internal Medicine 02/18/23 Ravinder Jose MD Specialist Cardiology 02/11/23 Fabien Burgos NP Specialist Cardiology 02/11/23 Angelica Price MD [address] [address] Specialist Cardiology 03/11/23 documented as of this encounter
--- OUTSIDE RECORDS SUMMARY | 2025-02-16 09:08 | XMS_ITS | Encounter Summary ---
Author Organization [facility] Address [address] [place] [address] Care Team Providers Care Red Lead Burner Name Role Phone Aram Modi MD Primary Care Provider Unakuldeep Gilmore Pcp Primary Care Provider [facility] Ravinder Salvador MD Unavailable [phone] Fabien Burgos NP Unavailable [phone] Aram Modi MD Primary Care Provider Unava Angelica Russell MD Unavailable [phone] Encounter Details Date Type Department Care Team Description 12/22/2017 Pt. Non Urgent Medic al Question Medicine/Pediatrics - [address] [address] Aram Modi MD Social History Tobacco Use [...] Subject: RX Dear Dr. Modi or attending blood bank assistant Received second call from [facility] with regard to unanswered prescriptiont request from your office. I am in need of these prescriptions olivas urgent. I was contacted by your office last week by someone who made a new appointment and was advised that the scripts would not be held up. Because I need these scripts now [facility] is requesting a phone call to them to expedite these orders. Please respond that this will be taken care of. Thank you, Cy Velez documented in this encounter Plan of Treatment Not on file documented as of this encounter Visit Diagnoses Not on filedocumented in this encounter Care Teams Red Lead Burner Relationship Specialty Start Date End Date Aram Modi MD PCP - General Internal Medicine 04/22/17 09/10/20 [facility] Pcp PCP - General Internal Medicine 09/11/20 02/17/23 Aram Modi MD PCP - General Internal Medicine 02/18/23 Ravinder Jose MD Specialist Cardiology 02/11/23 Fabien Burgos NP Specialist Cardiology 02/11/23 Angelica Price MD [address] [place] [address] Specialist Cardiology 03/11/23 documented as of this encounter
--- OUTSIDE RECORDS SUMMARY | 2025-02-16 09:08 | XMS_ITS | Encounter Summary ---
Author Organization [facility] Address [address] [place] [address] Care Team Providers Care Captain Waiter Name Role Phone Ravinder Jose MD Unavailable [phone] Fabien Burgos NP Unavailable [phone] Aram Modi MD Primary Care Provider Angelica Cardozo MD Unavailable [phone] Encounter Details Date Type Department Care Team Description 03/18/2023 SCAN Medical Records [address] [place] [id number] Abstract, Provider Social History Tobacco Use Types [...] on filedocumented in this encounter Care Teams Captain Waiter Relationship Specialty Start Date End Date Aram Modi MD PCP - General Internal Medicine 02/18/23 Ravinder Jose MD Specialist Cardiology 02/11/23 Fabien Burgos NP Specialist Cardiology 02/11/23 Angelica Price MD [address] [address] Specialist Cardiology 03/11/23 documented as of this encounter
--- OUTSIDE RECORDS SUMMARY | 2025-02-16 09:08 | XMS_ITS | Encounter Summary ---
Author Organization [facility] Address [address] [place] [address] Phone Care Team Providers Care Lease Out Man Name Role Phone Gael Coffman MD Primary Care Provider Unav ailable Aram Modi MD Primary Care Provider Aram Modi MD Primary Care Provider Aram Modi MD Unavailable Scott Souza MD Unavailable [phone] Alex Medina MD, MPH Unavailable [phone] Encounter Details Date Type Department Care Team (Late st Contact Info) Description 12/13/2016 Procedure Pass [facility], [facility] [place], [place] [address] [facility], Floor [address] [place] [address] Social History Tobacco Use Types [...] Description 02/17/2025 8:00 AM EDT Pre-Admission Testing [address] [address] Aixa Luciano MD [address] [place] [address], [address] [place] [id number] [email or web address] 03/01/2025 Procedure Pass [address] [address] 03/01/2025 3:45 PM EDT Hospital Encounter [address] [address] Aixa Luciano MD [address] [place] [address], [address] [address] [email or web address] 03/01/2025 3:45 PM EDT - 03/01/2025 4:30 PM EDT Surgery [address] [address] Aixa Luciano MD [address] [place] [address], [address] [place] [id number] [email or web address] ENDOSCOPIC ULTRASOUND /FNA - growing cyst in head 05/18/2025 11:00 AM EST Telemedicine [facility] [address] [facility] [place] [address] Alex Medina MD, MPH [address] [place] [address], [facility] [place] [address] [email or web address] Scheduled Procedures Name Priority Associated Diagnoses Date/Ti me ENDOSCOPIC ULTRASOUND Cyst of pancreas 03/01/2025 3:45 PM EDT documented as of this encounter Visit Diagnoses Not on filedocumented in this encounter Care Teams Lease Out Man Relationship Specialty Start Date End Date Gael Coffman MD PCP - General 09/23/14 01/17/22 Aram Modi MD [facility] [address] PCP - General Internal Medicine 01/18/22 01/14/23 Aram Modi MD [facility] [address] PCP - General 01/15/23 Aram Modi MD [address] [place] [id number] Internal Medicine 01/15/23 Scott Souza MD [address] [place] [address] [email or web address] 12/08/15 Alex Medina MD, MPH [address] [place] [id number] [email or web address] 11/23/20 documented as of this encounter Additional Source Comments The information contained in this document represents components of the legal health record. It is not the complete legal health record.[facility]
== END 2025-02-15 08:38 | disposition home or self-care (01) ==
LOC: HO.HOSX 08:37
PROVIDERS: Visit Provider Orthopaedic Surgery
DX: Z47.1 Aftercare following joint replacement surgery (principal); M25.561 Pain in right knee; Z96.651 Presence of right artificial knee joint; Z79.899 Other long term (current) drug therapy
CPT/HCPCS: 73562; 99212